=== PATIENT | male | born 1945 | race Caucasian/White ===

== ENCOUNTER 2020-09-17 12:17 | Outpatient (REF) | payer MEDICARE, MEDICAID, SELFPAY | END 2020-09-17 12:18 | disposition home or self-care (01) | LOC: HO.LAB 12:17 | PROVIDERS: Visit Provider Internal Medicine | DX: Z20.828 Contact with and (suspected) exposure to other viral communicable diseases (principal) | CPT/HCPCS: 87635 ==

== ENCOUNTER → 2020-10-29 09:25 | Outpatient (BNVA) | payer MEDICARE, MEDICAID, SELFPAY | PROVIDERS: PCP Family Medicine; Referring Provider Family Medicine; Visit Provider Internal Medicine Endocrinology, Diabetes & Metabolism | DX: Z13.89 Encounter for screening for other disorder (principal) | CPT/HCPCS: Q3014 ==

== ENCOUNTER 2020-11-25 14:01 | Outpatient (REF) | payer MEDICARE, MEDICAID, SELFPAY | END 2020-11-25 14:02 | disposition home or self-care (01) | LOC: HO.LAB 14:01 | PROVIDERS: PCP Family Medicine; Visit Provider Internal Medicine | DX: Z20.828 Contact with and (suspected) exposure to other viral communicable diseases (principal) | CPT/HCPCS: 36415; C9803; U0003 ==

== ENCOUNTER 2021-01-14 16:24 | Emergency (ER) | payer MEDICARE, OTHER, SELFPAY ==
--- NOTE | ~2021-01-14 | US_ITS ---
EXAMINATION: US VENOUS ULTRASOUND WITH DOPPLER LOWER EXTREMITY, LEFT CLINICAL INFORMATION: Left lower extremity pain and swelling COMPARISON: CT abdomen pelvis 05/01/2019 TECHNIQUE: Ultrasound of the deep veins is performed from the hip to the calf with compression sonography and color and pulse Doppler assessment. Spectral analysis with color-flow imaging is performed. FINDINGS: There is normal venous compression and respiratory variation and augmented flow. The visualized common femoral vein, superficial femoral vein, profunda femoral vein, popliteal vein, and the trifurcation region shows no evidence of deep venous thrombosis. There is no significant popliteal fossa cyst. Incidental note made of a 3.1 cm normal-appearing left inguinal lymph node. Prominent lymph nodes were present in the inguinal regions on the prior CT scan. If the patient's symptoms persist, followup ultrasound in 5 days 7 days might be of value to exclude proximal propagation from a non-visualized calf vein. US/US venous duplex LE IMPRESSION: No DVT demonstrated in the left lower extremity.
[2021-01-14 18:58] VITALS: BP 116/71; PULSE 105; RESP 18; TEMP 37.1; O2SAT 97; BMI 31.7
[2021-01-14 21:43] LABS: Glucose, Whole Blood 243 mg/dL (60-115)
[2021-01-14 22:00] VITALS: BP 116/71; PULSE 105; RESP 18; TEMP 37.1; O2SAT 97
--- NOTE | 2021-01-14 23:09 | ED.LOWEXIN ---
HPI - Extremity Injury (Lower) General Chief Complaint: Extremity Injury, Lower Stated Complaint: leg pain and swelling Time Seen by Provider: 01/14/21 23:09 Source: patient Mode of arrival: ambulatory Limitations: no limitations History of Present Illness HPI Narrative: Patient diabetic noticed swelling of left foot for last 5 days with slight erythema of the dorsum of the foot gradually swelling spreaded to the whole leg below the knee. Patient denies any fever no skin breakdown no injury denies any shortness of breath Related Data Home Medications Medication Instructions Recorded Confirmed atorvastatin 40 mg tablet 40 mg PO BEDTIME 10/29/20 10/29/20 cholecalciferol (vitamin D3) 50 50 mcg PO DAILY 10/29/20 10/29/20 mcg (2,000 unit) capsule exenatide microspheres 2 mg/0.85 mg SUBCUT 10/29/20 10/29/20 mL subcutaneous auto-injector glucose 4 gram chewable tablet 16 g PO 10/29/20 10/29/20 insulin glargine U-300 conc 300 15 unit SUBCUT BEDTIME ml 10/29/20 10/29/20 unit/mL (1.5 mL) subcutaneous pen lisinopril 20 mg tablet 20 mg PO DAILY 10/29/20 10/29/20 metolazone 2.5 mg tablet mg PO 10/29/20 10/29/20 metoprolol succinate 25 mg 25 mg PO DAILY 10/29/20 10/29/20 tablet,extended release 24 hr pen needle, diabetic 31 gauge x #1200 ea 10/29/20 10/29/20 5/16 potassium chloride 20 mEq 20 meq PO DAILY 10/29/20 10/29/20 tablet,extended release(part/cryst) Previous Rx's Medication Instructions Recorded TRUEplus Lancets 33 gauge #350 ea NS 10/29/20 blood sugar diagnostic #350 ea 10/29/20 Humalog KwikPen Insulin 100 See Rx Instructions SUBCUT TID 30 12/31/20 unit/mL subcutaneous Days #15 ml NS furosemide 40 mg tablet 80 mg PO .COMPLEX 30 Days #120 tab 01/08/21 cephalexin 500 mg PO QID 10 Days #40 cap 01/15/21 doxycycline hyclate 100 mg PO BID #20 cap 01/15/21 Allergies Allergy/AdvReac Type Severity Reaction Status Date / Time No Known Allergies Allergy Verified 01/14/21 18:58 [No Known Allergies*] Review of Systems Review of Systems: Constitutional : No Weight loss, No Fever, No Chills ENT/Mouth : No sore throat, No Rhinorrhea Eyes: No Eye Pain, No Swelling Cardiovascular : No Chest Pain, no palpitations Respiratory : No Cough, No Sputum, no shortness of breath Gastrointestinal : no Nausea, No Vomiting, No Diarrhea, No abdominal Pain, no black stools Genitourinary : No Dysuria, No Urinary Frequency Musculoskeletal : No joint pain, No Myalgias, No Joint Swelling Skin : No Skin Lesions, No rash Neuro : No Weakness, No Numbness, No Dizziness, No Headache Psych : No Anxiety/Panic, No Depression Heme/Lymph: No Bruising, No Lymphadenopathy Endocrine : No Polyuria, No Polydipsia All other systems reviewed and are negative [facility] Past Medical History Medical History CAD (coronary artery disease) CKD (chronic kidney disease) stage 3, GFR 30-59 ml/min Diabetes type 2, uncontrolled Diabetic polyneuropathy associated with type 2 diabetes mellitus Dyslipidemia Heart failure with preserved ejection fraction 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 Obesity (BMI 30-39.9) SRINIVASA (obstructive sleep apnea) Surgical History Hx of cardiac catheterization Hx of colonoscopy Family History Family History Father Heart disease Diabetes mellitus Mother Diabetes mellitus Social History Social History Alcohol intake: unknown Smoking Status: Unknown if ever smoked Use of substances other than those prescribed or required for medical reasons: Unknown Advance Directives: No Physical Exam Vital Signs: Vital Signs: Last Vital Signs Temp 98.7 F 01/14/21 22:00 Pulse 105 H 01/14/21 22:00 Resp 18 01/14/21 22:00 BP 116/71 01/14/21 22:00 Pulse Ox 97 01/14/21 22:00 Body Mass Index 31.7 Appearance: Alert. Oriented X3. No acute distress. Eyes: Pupils equal, round and reactive to light. ENT: Pharynx normal. Neck: Normal inspection. Neck supple. CVS: Normal heart rate and rhythm. Pulses normal. Respiratory: No respiratory distress. Breath sounds normal. Abdomen: Soft and nontender. Bowel sounds are present, no mass palpable, no CVA tenderness Skin: Skin warm and dry. Normal skin color. Normal skin turgor. Extremities: Normal right leg, left leg swelling from dorsum to below the knee with slight erythema at the dorsum of the foot no skin break no significant calf tenderness Neuro: Oriented X 3. No motor deficit. No sensory deficit. MDM - Extremity Injury (Lower) MDM Narrative Medical decision making narrative: Patient was slight erythema of the dorsum of left foot with leg edema Doppler is negative for DVT no open wound will treat him with doxycycline and Keflex. Patient white count slightly elevated. Patient advised to come back to ER if the redness gets worse or has high-grade fever Lab Data Attestation: I reviewed the patient's lab results. Result diagrams: 01/14/21 23:33 01/14/21 23:33 Labs: Lab Results 01/14/21 01/14/21 01/14/21 Range/Units 21:38 23:33 23:33 WBC 13.7 H (4.8-10.8) X10*3/uL RBC 4.53 L (4.60-5.80) X10*6/uL Hgb 12.9 L (14.0-18.0) g/dl Hct 41.5 L (42-52) % MCV 91.6 (80-98) fL MCH 28.5 (27.0-33.0) pg MCHC 31.1 (31.0-36.0) g/dl RDW 13.5 (11.0-16.0) % Plt Count 227 (160-400) X10*3/uL MPV 10.7 (9.4-12.4) fL Immature Gran % (Auto) 0.4 (0.0-0.4) % Neut % (Auto) 74.5 H (45-73) % Lymph % (Auto) 12.4 L (20-40) % [place] % (Auto) 11.4 H (2-11) % Eos % (Auto) 1.0 (0-4) % Baso % (Auto) 0.3 (0-2) % Lymph # (Auto) 1.7 (1.2-4.9) X10*3/uL [place] # (Auto) 1.6 H (0.1-1.2) X10*3/uL Eos # (Auto) 0.1 (0.0-0.4) X10*3/uL Baso # (Auto) 0.0 (0.0-0.2) X10*3/uL Abs Immat Gran (auto) 0.05 H (0.00-0.03) X10*3/uL Absolute Neuts (auto) 10.2 H (2.0-8.3) X10*3/uL Absolute Nucleated RBC 0.000 (0.0-0.012) X10*3/uL Nucleated RBC % (auto) 0.0 (0.0-0.2) /100WBC Smear Tech's Comments VERIFIED Sodium 139 (135-145) mmol/L Potassium 4.8 (3.3-5.1) mmol/L Chloride 96 (96-108) mmol/L Carbon Dioxide 30 H (22-29) mmol/L Anion Gap 18 (12-20) BUN 42 H (9-16) mg/dL Creatinine 1.71 H (0.5-1.4) mg/dL Estim Creat Clear Calc 37.0 Estimated GFR 39 POC Glucose 243 H (60-115) mg/dL Random Glucose 291 H (60-115) mg/dL Calcium 9.5 (8.4-10.2) mg/dL B-Natriuretic Peptide (<100) pg/mL 01/14/21 Range/Units 23:33 WBC (4.8-10.8) X10*3/uL RBC (4.60-5.80) X10*6/uL Hgb (14.0-18.0) g/dl Hct (42-52) % MCV (80-98) fL MCH (27.0-33.0) pg MCHC (31.0-36.0) g/dl RDW (11.0-16.0) % Plt Count (160-400) X10*3/uL MPV (9.4-12.4) fL Immature Gran % (Auto) (0.0-0.4) % Neut % (Auto) (45-73) % Lymph % (Auto) (20-40) % [place] % (Auto) (2-11) % Eos % (Auto) (0-4) % Baso % (Auto) (0-2) % Lymph # (Auto) (1.2-4.9) X10*3/uL [place] # (Auto) (0.1-1.2) X10*3/uL Eos # (Auto) (0.0-0.4) X10*3/uL Baso # (Auto) (0.0-0.2) X10*3/uL Abs Immat Gran (auto) (0.00-0.03) X10*3/uL Absolute Neuts (auto) (2.0-8.3) X10*3/uL Absolute Nucleated RBC (0.0-0.012) X10*3/uL Nucleated RBC % (auto) (0.0-0.2) /100WBC Smear Tech's Comments Sodium (135-145) mmol/L Potassium (3.3-5.1) mmol/L Chloride (96-108) mmol/L Carbon Dioxide (22-29) mmol/L Anion Gap (12-20) BUN (9-16) mg/dL Creatinine (0.5-1.4) mg/dL Estim Creat Clear Calc Estimated GFR POC Glucose (60-115) mg/dL Random Glucose (60-115) mg/dL Calcium (8.4-10.2) mg/dL B-Natriuretic Peptide 753 H (<100) pg/mL Discharge Plan Discharge Clinical Impression: Cellulitis of left leg Patient Disposition: Home, Self-Care Instructions: Cellulitis (ED) Additional Instructions: Keep the leg elevated take antibiotic as prescribed Follow-up with your PCP Prescriptions: New doxycycline hyclate 100 mg capsule 100 mg PO BID Qty: 20 RF: 0 cephalexin 500 mg capsule 500 mg PO QID 10 Days Qty: 40 RF: 0 No Action insulin lispro [Humalog KwikPen Insulin] 100 unit/mL insulin pen See Rx Instructions subcut TID 30 Days Qty: 15 RF: 6 furosemide 40 mg tablet 80 mg PO .COMPLEX 30 Days Qty: 120 RF: 1 cholecalciferol (vitamin D3) 50 mcg (2,000 unit) capsule 50 mcg PO DAILY RF: 0 metoprolol succinate 25 mg tablet extended release 24 hr 25 mg PO DAILY RF: 0 metolazone 2.5 mg tablet PO RF: 0 atorvastatin 40 mg tablet 40 mg PO BEDTIME RF: 0 Toudeyanira SoloStar U-300 Insulin 300 unit/mL (1.5 mL) insulin pen 15 unit subcut BEDTIME RF: 0 lisinopril 20 mg tablet 20 mg PO DAILY RF: 0 (DME) pen needle, diabetic 31 gauge x 5/16 needle See Rx Instructions ea .ROUTE DAILY Qty: 1200 RF: 0 glucose 4 gram tablet,chewable 16 g PO RF: 0 potassium chloride 20 mEq tablet,ER particles/crystals 20 meq PO DAILY RF: 0 Bydureon BCise 2 mg/0.85 mL auto-injector subcut RF: 0 (DME) FreeStyle Lite Strips Strip See Rx Instructions .ROUTE .MEDSUPPLY Qty: 350 RF: 2 (DME) lancets [TRUEplus Lancets] 33 gauge misc See Rx Instructions ea Not Applicable TID Qty: 350 RF: 2 Interventions: ED Discharge Assessment Last Done: 01/15/21 01:34 Discharge Date/Time: 01/15/21 02:05 Print Language: Turkish
[2021-01-14 23:40] LABS: Basophils Percent Auto 0.3 % (0-2); Eosinophils Absolute Auto 0.1 X10*3/uL (0.0-0.4); Hematocrit 41.5 % (42-52); Hemoglobin 12.9 g/dl (14.0-18.0); Imm Gran Abs Auto 0.05 X10*3/uL (0.00-0.03); Imm Gran Pct Auto 0.4 % (0.0-0.4); Lymphocytes Absolute Auto 1.7 X10*3/uL (1.2-4.9); Lymphocytes Percent Auto 12.4 % (20-40); MANUAL DIFF FLAG SCAN; Mean Corpuscular HGB Conc 31.1 g/dl (31.0-36.0); Mean Corpuscular Hemoglobin 28.5 pg (27.0-33.0); Mean Corpuscular Volume 91.6 fL (80-98); Mean Platelet Volume 10.7 fL (9.4-12.4); Monocytes Absolute Auto 1.6 X10*3/uL (0.1-1.2); Monocytes Percent Auto 11.4 % (2-11); Neutrophils Absolute Auto 10.2 X10*3/uL (2.0-8.3); Neutrophils Percent Auto 74.5 % (45-73); Platelet Count 227 X10*3/uL (160-400); Red Blood Count 4.53 X10*6/uL (4.60-5.80); Red Cell Distribution Width 13.5 % (11.0-16.0); SCAN SMEAR FLAG 1; White Blood Count 13.7 X10*3/uL (4.8-10.8)
[2021-01-14 23:48] LABS: SLIDE REVIEW VERIFIED
[2021-01-15 00:04] LABS: Carbon Dioxide 30 mmol/L (22-29); Chloride 96 mmol/L (96-108); Potassium 4.8 mmol/L (3.3-5.1); Sodium 139 mmol/L (135-145)
[2021-01-15 00:05] LABS: Anion Gap 18 (12-20); Blood Urea Nitrogen 42 mg/dL (9-16); Calcium 9.5 mg/dL (8.4-10.2); Estimated Glomerular Filt Rate 39; Glucose Random 291 mg/dL (60-115)
[2021-01-15 00:11] LABS: B Type Natriuretic Peptide 753 pg/mL (<100)
[2021-01-15] MEDS: cephALEXin 500 MG CAPSULE PO (01:34)
== END 2021-01-15 02:05 | disposition home or self-care (01) ==
PROVIDERS: Emergency Provider Internal Medicine; PCP Family Medicine
DX: L03.116 Cellulitis of left lower limb (principal); M79.605 Pain in left leg; E11.22 Type 2 diabetes mellitus with diabetic chronic kidney disease; I13.0 Hypertensive heart and chronic kidney disease with heart failure and stage 1 through stage 4 chronic kidney disease, or unspecified chronic kidney disease; N18.30 Chronic kidney disease, stage 3 unspecified; I50.9 Heart failure, unspecified; Z79.4 Long term (current) use of insulin; Z79.899 Other long term (current) drug therapy
CPT/HCPCS: 36415; 80048; 82947; 83880; 85025; 93971; 99284

== ENCOUNTER → 2021-02-04 11:26 | Outpatient (BNVA) | payer MEDICARE, OTHER, SELFPAY | PROVIDERS: PCP Family Medicine; Visit Provider Internal Medicine Endocrinology, Diabetes & Metabolism | DX: E11.65 Type 2 diabetes mellitus with hyperglycemia (principal); E11.42 Type 2 diabetes mellitus with diabetic polyneuropathy; Z79.4 Long term (current) use of insulin; E78.5 Hyperlipidemia, unspecified; I10 Essential (primary) hypertension; E66.9 Obesity, unspecified | CPT/HCPCS: 82947; 99212 ==

== ENCOUNTER → 2021-02-17 13:49 | Outpatient (BNVA) | payer MEDICARE, MEDICAID, SELFPAY | PROVIDERS: PCP Family Medicine; Visit Provider Internal Medicine | DX: I13.0 Hypertensive heart and chronic kidney disease with heart failure and stage 1 through stage 4 chronic kidney disease, or unspecified chronic kidney disease (principal); N18.32 Chronic kidney disease, stage 3b; I50.32 Chronic diastolic (congestive) heart failure; G47.33 Obstructive sleep apnea (adult) (pediatric); R00.0 Tachycardia, unspecified | CPT/HCPCS: 93005; 99212 ==

== ENCOUNTER → 2021-03-31 08:06 | Outpatient (REF) | payer MEDICARE, OTHER, SELFPAY ==
--- NOTE | 2021-03-31 08:10 | CA_ITS ---
Transthoracic Echocardiogram Patient (Last, First, Middle): Jonathan Neal A Gender: Male Date of : 1945 Age: 76 Procedure Date: 03/31/2021 Procedure Type: Transthoracic Echocardiogram Location: OP Height: 160.02 cm Weight: 81.65 kg BSA: 1.85 m2 Heart Rate: bpm BP: 102 / 60 mmHg Sulfide Head Operator: Reagan MD: Jas Dudley MD Symptoms: I50.32 - Chronic diastolic (congestive) heart failure Study Quality: Good ECG Rhythm: Sinus Conclusions: - Visually estimated LVEF about 40%. - There is moderate global hypokinesis. - There is mildly decreased right ventricular systolic function. - There is mild mitral valve regurgitation. - There is mild tricuspid valve regurgitation. - Mild pulmonary hypertension is present. Findings Procedure Information The patient receives contrast. Left Ventricle Normal left ventricular cavity size. The left ventricular systolic function is moderately decreased. There is moderate global hypokinesis. Moderate to severe concentric left ventricular hypertrophy. Possible grade 2 diastolic dysfunction. Visually estimated LVEF about 40%. Right Ventricle Normal right ventricular cavity size. There is mildly decreased right ventricular systolic function. Atria The left atrium is mildly dilated. The right atrium is normal in size. Aortic Valve There is a normal trileaflet aortic valve. There is no aortic valve stenosis. There is no aortic valve regurgitation. Mitral Valve There is mild anterior mitral leaflet thickening. There is mild mitral valve regurgitation. There is no mitral valve stenosis. Pulmonic Valve The pulmonic valve was not well visualized. There is trace to mild pulmonic valve regurgitation. Tricuspid Valve Normal tricuspid valve structure. There is mild tricuspid valve regurgitation. The right ventricular systolic pressure is 42 mmHg. Mild pulmonary hypertension is present. Great Vessels The aortic annulus, sinuses of valsalva, and asc aorta are normal in size. Small plaque is seen in the sino tubular ridge. Venous The inferior vena cava is normal in size and collapses greater than 50% with inspiration. Pericardium/Pleural There is a trivial pericardial effusion. Prior Study Comparison No significant change compared to prior study dated: 06/25/2020. Measurements 2D Linear Measurements RVIDd: 3.20 RVIDd Index: 1.73 IVSd: 1.34 0.6-0.9/0.6-1.0 cm LVIDd: 4.61 3.9-5.3/4.2-5.9 cm LVIDd Index: 2.49 2.4-3.2/2.2-3.1 cm/m2 LVIDs: 3.88 2.0-3.6 cm LVPWd: 1.52 0.7-1.1 cm Ao Root: 2.50 2.1-3.5 cm LA Diam: 4.30 2.7-3.8/3.0-4.0 cm LAIDs Index: 2.32 1.5-2.3 cm/m2 LV Mass: 331.61 67-162/88-224 g LV Mass Index: 179.25 43-95/49-115 g/m2 LVOT Diam: 2.00 3.0+(-)1.3 cm 2D Systolic Function EF 4C: 43.70 >55% EF 2C: 51.40 >55% Mitral Valve E'Lateral: 4.25 MR Vol - PW Dopp: 21.47 MR VTI: 1.13 MR ERO: 19.00 MR Alias Marcell: 0.37 MR RAD: 0.60 Aortic Valve AoV Pk Marcell: 1.41 AoV Mn Marcell: 1.06 AoV VTI: 0.23 AoV Pk Grad: 8.00 Aov Mn Grad: 5.00 OWEN Cont.VTI: 1.55 LVOT LVOT Pk Marcell: 0.77 LVOT Mn Marcell: 0.47 LVOT VTI: 0.11 LVOT Pk Grad: 2.00 LVOT Mn Grad: 1.00 LVOT Diam: 2.00 LVOT Area: 3.14 Diastolic Function E' Laterial: 4.25 Tricuspid Valve TR Pk Marcell: 3.12 TR Pk Grad: 39.00 RA Press: 3.00 RVSP: 42.00 Great Vessels Aorta Ao Root-2D: 2.50 2.0-3.7 cm Ao Asc: 2.70 2.1-3.4 cm Updated in Other Vendor System with Status of Final Jas Dudley MD electronically signed on 03/31/2021 4:32:58 PM with status of Final
--- NOTE | 2021-03-31 08:25 | ECG_ITS ---
Hook-up date: 2021-03-31 10:00:00 Duration: 27:13:00 Test Indications: PAF Medications: 504992 QRS complexes 5 Ventricular ectopics which represent <1 % of total QRS comp. 20 Supraventricular ectopics which represent <1 % of total QRS comp. * Paced QRS complexs which represent % of total QRS comp. VENTRICULAR ECTOPY 5 Isolated 0 Bigeminal Cycles 0 Couplets 0 Runs 0 Beats in Runs * Beats LONGEST at * BPM at :: -- * Beats FASTEST at * BPM at :: -- SUPRAVENTRICULAR ECTOPY 20 Isolated 0 Couplets 0 Runs 0 Beats in Runs * Beats LONGEST at * BPM at :: -- * Beats FASTEST at * BPM at :: -- HEART RATES 46 MIN at 01:29:36 2021-04-01 81 AVG 132 MAX at 18:29:23 2021-03-31 LONGEST RR 1.7840 secs at 23:53:34 2021-03-31 S-T LEVELS Channel 1 - 128 mm at 10:00:00 2021-03-31 - 128 mm at 10:00:00 2021-03-31 Channel 2 - 128 mm at 10:00:00 2021-03-31 - 128 mm at 10:00:00 2021-03-31 Channel 3 - 128 mm at 02:91:91 -- - 128 mm at 02:91:91 Basic rhythm Normal sinus rhythm No long pause or profound bradycardia No sustained Atrial fibrillation Rare Premature atrial complexes Patient did not report any symptoms in the diary Referred By: Jas Dudley Overread By: ANNETTE GALLARDO MD
== END ==
LOC: HO.CARD 08:06
PROVIDERS: Visit Provider Internal Medicine
DX: I50.32 Chronic diastolic (congestive) heart failure (principal); I48.0 Paroxysmal atrial fibrillation; R00.0 Tachycardia, unspecified; J45.909 Unspecified asthma, uncomplicated
CPT/HCPCS: 93225; 93226; 93306; Q9957

== ENCOUNTER 2021-04-11 08:40 | Outpatient (REF) | payer MEDICARE, OTHER, SELFPAY ==
[2021-04-11 09:30] LABS: Hematocrit 41.4 % (42-52); Hemoglobin 12.9 g/dl (14.0-18.0); Mean Corpuscular HGB Conc 31.2 g/dl (31.0-36.0); Mean Platelet Volume 11.4 fL (9.4-12.4); Platelet Count 225 X10*3/uL (160-400); White Blood Count 14.4 X10*3/uL (4.8-10.8)
[2021-04-11 09:47] LABS: Anion Gap 15 (12-20); Blood Urea Nitrogen 77 mg/dL (9-16); Calcium 9.8 mg/dL (8.4-10.2); Carbon Dioxide 32 mmol/L (22-29); Chloride 95 mmol/L (96-108); Estimated Glomerular Filt Rate 26; Iron 25 mcg/dL (45-160); Percent Iron Saturation 7 % (15-50); Sodium 138 mmol/L (135-145); Total Iron Binding Capacity 355 mcg/dL (228-428); Unsaturated Iron Binding 330 ug/dL; Uric Acid 14.7 mg/dL (3.4-7.0)
[2021-04-11 10:08] LABS: Vitamin D 25-OH Total 70.2 ng/mL (>30)
[2021-04-11 11:04] LABS: Estimated Average Glucose 206 mg/dL; Hemoglobin A1c % 8.8 %
[2021-04-11 11:13] LABS: Creatinine Urine 90.04 mg/dL; Total Protein Urine Random < 7 mg/dL (<12)
[2021-04-15 10:27] LABS: Calcium (PTHI) 9.7 mg/dL (8.6-10.3); PTHI 122 pg/mL (14-64)
== END 2021-04-11 08:41 | disposition home or self-care (01) ==
LOC: HO.LAB 08:40
PROVIDERS: PCP Family Medicine; Visit Provider Internal Medicine Nephrology
DX: Z13.89 Encounter for screening for other disorder (principal)
CPT/HCPCS: 36415; 80051; 82306; 82310; 82565; 83036; 83540; 83970; 84156; 84520; 84550; 85027

== ENCOUNTER 2021-04-11 09:22 | Inpatient (IN) | payer MEDICARE, OTHER, SELFPAY ==
--- NOTE | ~2021-04-11 | XR_ITS ---
EXAMINATION: XR HAND, RIGHT CLINICAL INFORMATION: Swelling and redness. Evaluate for osteomyelitis. COMPARISON: Right wrist x-ray from earlier the same day TECHNIQUE: PA, lateral, and oblique views of the right hand. FINDINGS: Bone alignment is normal. No fracture or dislocation is seen. There is mild arthritis at the PIP joint of the third finger and first [facility] joint. Joint spaces are otherwise normal. There is no evidence of osteomyelitis. There is diffuse soft tissue swelling. XR/XR hand RT min 3V IMPRESSION: No evidence of osteomyelitis. Arthritis at the PIP joint of the third finger and first [facility] joint. Soft tissue swelling.
--- NOTE | ~2021-04-11 | XR_ITS ---
EXAMINATION: XR WRIST, RIGHT CLINICAL INFORMATION: Right wrist swelling, redness and pain COMPARISON: None TECHNIQUE: PA, lateral, and oblique views of the right wrist. FINDINGS: Bone alignment is normal. No fracture or dislocation is seen. There is mild arthritis at the first [facility] joint. The joint spaces are otherwise normal. There is diffuse soft tissue swelling about the wrist. XR/XR wrist RT 2V IMPRESSION: Soft tissue swelling. Mild arthritis at the first [facility] joint.
[2021-04-11 10:04] VITALS: BP 125/64; PULSE 102; RESP 16; TEMP 37.2; O2SAT 99; BMI 31.8
--- NOTE | 2021-04-11 10:35 | ED_ITS ---
HPI - Extremity Problem General Chief complaint: Extremity Injury, Upper Stated complaint: swollen hand Time Seen by Provider: 04/11/21 11:33 Source: patient Mode of arrival: ambulatory Limitations: no limitations History of Present Illness HPI Narrative: Patient presents to ED for right hand swelling. Patient woke up with right wrist and hand swollen with pain. Patient had decreased movement of fingers due to pain. Patient denies any recent trauma to the hand being being by enema. Patient woke up with Hand/wrist swelling redness this morning Related Data Home Medications Medication Instructions Recorded Confirmed atorvastatin 40 mg tablet 40 mg PO BEDTIME 10/29/20 04/11/21 cholecalciferol (vitamin D3) 50 50 mcg PO DAILY@1200 10/29/20 04/11/21 mcg (2,000 unit) capsule lisinopril 20 mg tablet 20 mg PO DAILY@1200 10/29/20 04/11/21 metoprolol succinate 25 mg 25 mg PO DAILY@1200 10/29/20 04/11/21 tablet,extended release 24 hr albuterol sulfate 90 mcg/actuation 2 puff INHALATION Q6H PRN 02/04/21 04/11/21 aerosol inhaler aspirin 81 mg tablet,delayed 81 mg PO DAILY 02/17/21 04/11/21 release budesonide [Pulmicort Flexhaler] 2 puff PO BID 04/11/21 04/11/21 insulin glargine U-300 conc 17 unit SUBCUT BEDTIME 04/11/21 04/11/21 [Toujeo SoloStar U-300 Insulin] potassium chloride 20 meq PO DAILY@1200 04/11/21 04/11/21 Previous Rx's Medication Instructions Recorded Humalog KwikPen Insulin 100 See Rx Instructions SUBCUT TID 30 02/04/21 unit/mL subcutaneous Days #30 ml NS exenatide microspheres 2 mg/0.85 2 mg SUBCUT QWEEK 30 Days #4.25 ml 02/04/21 mL subcutaneous auto-injector furosemide 40 mg tablet 80 mg PO BID #120 tab 03/14/21 Allergies Allergy/AdvReac Type Severity Reaction Status Date / Time No Known Allergies Allergy Verified 01/14/21 18:58 [No Known Allergies*] Review of Systems Review of Systems: Yes all other systems are reviewed and are negative Constitutional: Constitutional: Reports as per HPI and Reports no additional constitutional complaints Eyes: Eyes: Reports as per HPI and Reports no additional eye complaints ENT: Reports system reviewed and no additional complaints, except as documented and Reports as per HPI Cardiovascular: Cardiovascular: Reports as per HPI and Reports no additional cardiovascular complaints Respiratory: Respiratory: Reports as per HPI and Reports no additional respiratory complaints Gastrointestinal: Gastrointestinal: Reports as per HPI and Reports no additional gastrointestinal complaints Genitourinary: Genitourinary: Reports no additional male genitourinary complaints and Reports as per HPI Musculoskeletal: Musculoskeletal: Reports no additional musculoskeletal complaints, Reports as per HPI, Reports arthralgias (Right hand) and Reports joint swelling (Right hand/wrist) Neurologic: Reports system reviewed and no additional complaints, except as documented and Reports as per HPI Psychiatric: Psychiatric: Reports no additional psychiatric complaints and Reports as per HPI [facility] Past Medical History Medical History (Updated 04/11/21 @ 16:32 by GOLDIE Beverly) CAD (coronary artery disease) CKD (chronic kidney disease) stage 3, GFR 30-59 ml/min Diabetes type 2, uncontrolled Diabetic polyneuropathy associated with type 2 diabetes mellitus Dyslipidemia Essential hypertension Heart failure with preserved ejection fraction 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 Obesity (BMI 30-39.9) SRINIVASA (obstructive sleep apnea) Surgical History Hx of cardiac catheterization Hx of colonoscopy Family History Family History Father Heart disease Diabetes mellitus Mother Diabetes mellitus Social History Social History Alcohol intake: never Smoking Status: Never smoker Use of substances other than those prescribed or required for medical reasons: No Advance Directives: Yes Advance Directives Information Provided: No Advance Directives on File: No Physical Exam Vital Signs: Vital Signs: Last Vital Signs Temp 99 F 04/11/21 10:04 Pulse 96 04/11/21 12:23 Resp 15 04/11/21 12:23 BP 127/72 04/11/21 12:23 Pulse Ox 99 04/11/21 10:04 Body Mass Index 31.8 Const: General: cooperative, healthy appearing, comfortable, no acute distress, well developed, alert, awake and Physically active Orientation/consciousness: patient oriented x3 HENMT: Head: Yes normal to inspection, Yes No palpable skull fracture present, Yes normocephalic and Yes atraumatic Eyes: General: appearance normal, both eyes and all related structures Neck: Neck: Yes normal visual inspection and Yes full ROM Chest: Chest palpation & inspection: normal inspection of the chest and normal palpation of entire chest wall Resp: Effort & Inspection: normal respiratory effort and able to speak in complete sentences Auscultation: clear to auscultation bilaterally Cardio: Jugular venous distension: no JVD Heart sounds: S1 normal heart sound present and S2 normal heart sound present GI: Inspection: Yes normal to inspection Palpation (GI): Soft to palpation, not firm, nontender, no guarding and not rigid : General: No CVA tenderness and Yes no CVA tenderness Back/Spine/Pelvis: Back: no CVA tenderness, No CVA tenderness and No back tenderness Skin: General skin exam: no rashes or lesions noted and elasticity normal Neuro: General: patient oriented x3, gait normal and CN's II-XI intact bilaterally Cranial nerves: Yes CN's II-XII intact bilaterally Extrem: Other: Right upper extremity: Positive for erythema swelling of dorsal aspect of hand/wrist and redness. Positive for swelling of 2nd and 3rd finger. Patient able to flex and extend fingers but with limitation due to pain. Radial pulses neuro exam is intact right upper extremity. Rest of right upper extremity negative for any swelling, tenderness. General: Yes normal to inspection and Yes full ROM Psych: Appearance: grossly normal, well kempt and not disheveled Course Course Course Narrative: Will do labs, lactate, fluids, and x-ray. Reevaluation(s) Reevaluation #1: X-ray negative for osteomyelitis. History physical exam indicate most likely cellulitis. ERCP, ESR, elevated white blood cell count. Hospitalist contacted for admission. Reevaluation #2: Spoke with Dr. lorin Whitt and recommends hand surgeon/ortho evaluation. Patient was given antibiotics. Hand surgeon Dr. Flores was contacted. Reevaluation #3: GOLDIE Monterroso of Orthopedics evaluated patient does not believe patient has tenosynovitis. She will discuss case with Dr. Baker. MDM - Extremity (Nontraumatic) MDM Narrative Medical decision making narrative: Cellulitis Lab Data Result diagrams: 04/11/21 11:06 04/11/21 11:05 Labs: Lab Results 04/11/21 04/11/21 04/11/21 Range/Units 11:05 11:05 11:05 WBC (4.8-10.8) X10*3/uL RBC (4.60-5.80) X10*6/uL Hgb (14.0-18.0) g/dl Hct (42-52) % MCV (80-98) fL MCH (27.0-33.0) pg MCHC (31.0-36.0) g/dl RDW (11.0-16.0) % Plt Count (160-400) X10*3/uL MPV (9.4-12.4) fL Immature Gran % (Auto) (0.0-0.4) % Neut % (Auto) (45-73) % Lymph % (Auto) (20-40) % [place] % (Auto) (2-11) % Eos % (Auto) (0-4) % Baso % (Auto) (0-2) % Lymph # (Auto) (1.2-4.9) X10*3/uL [place] # (Auto) (0.1-1.2) X10*3/uL Eos # (Auto) (0.0-0.4) X10*3/uL Baso # (Auto) (0.0-0.2) X10*3/uL Abs Immat Gran (auto) (0.00-0.03) X10*3/uL Absolute Neuts (auto) (2.0-8.3) X10*3/uL Absolute Nucleated RBC (0.0-0.012) X10*3/uL Nucleated RBC % (auto) (0.0-0.2) /100WBC ESR (0-15) MM/HR PT 13.9 H (10.8-13.0) SEC INR 1.2 H (0.9-1.1) APTT 32.5 (24.1-38.0) SEC Sodium 139 (135-145) mmol/L Potassium 4.0 (3.3-5.1) mmol/L Chloride 96 (96-108) mmol/L Carbon Dioxide 30 H (22-29) mmol/L Anion Gap 17 (12-20) BUN 80 H* (9-16) mg/dL Creatinine 2.33 H (0.5-1.4) mg/dL Estim Creat Clear Calc 26.2 Estimated GFR 28 Random Glucose 246 H (60-115) mg/dL Lactic Acid 1.3 (0.5-2.0) mmol/L Calcium 9.8 (8.4-10.2) mg/dL Total Bilirubin 1.8 H (0.0-1.0) mg/dL AST 18 (5-37) U/L ALT 24 (0-40) U/L Alkaline Phosphatase 101 (39-117) U/L C-Reactive Protein 5.94 H (< or = 0.50) mg/dL Total Protein 7.5 (6.5-8.0) g/dL Albumin 4.2 (3.5-5.0) g/dL 04/11/21 04/11/21 Range/Units 11:06 11:06 WBC 14.2 H (4.8-10.8) X10*3/uL RBC 4.59 L (4.60-5.80) X10*6/uL Hgb 12.9 L (14.0-18.0) g/dl Hct 41.3 L (42-52) % MCV 90.0 (80-98) fL MCH 28.1 (27.0-33.0) pg MCHC 31.2 (31.0-36.0) g/dl RDW 14.0 (11.0-16.0) % Plt Count 223 (160-400) X10*3/uL MPV 11.2 (9.4-12.4) fL Immature Gran % (Auto) 0.4 (0.0-0.4) % Neut % (Auto) 81.9 H (45-73) % Lymph % (Auto) 6.9 L (20-40) % [place] % (Auto) 10.1 (2-11) % Eos % (Auto) 0.4 (0-4) % Baso % (Auto) 0.3 (0-2) % Lymph # (Auto) 1.0 L (1.2-4.9) X10*3/uL [place] # (Auto) 1.4 H (0.1-1.2) X10*3/uL Eos # (Auto) 0.1 (0.0-0.4) X10*3/uL Baso # (Auto) 0.0 (0.0-0.2) X10*3/uL Abs Immat Gran (auto) 0.06 H (0.00-0.03) X10*3/uL Absolute Neuts (auto) 11.6 H (2.0-8.3) X10*3/uL Absolute Nucleated RBC 0.000 (0.0-0.012) X10*3/uL Nucleated RBC % (auto) 0.0 (0.0-0.2) /100WBC ESR 44 H (0-15) MM/HR PT (10.8-13.0) SEC INR (0.9-1.1) APTT (24.1-38.0) SEC Sodium (135-145) mmol/L Potassium (3.3-5.1) mmol/L Chloride (96-108) mmol/L Carbon Dioxide (22-29) mmol/L Anion Gap (12-20) BUN (9-16) mg/dL Creatinine (0.5-1.4) mg/dL Estim Creat Clear Calc Estimated GFR Random Glucose (60-115) mg/dL Lactic Acid (0.5-2.0) mmol/L Calcium (8.4-10.2) mg/dL Total Bilirubin (0.0-1.0) mg/dL AST (5-37) U/L ALT (0-40) U/L Alkaline Phosphatase (39-117) U/L C-Reactive Protein (< or = 0.50) mg/dL Total Protein (6.5-8.0) g/dL Albumin (3.5-5.0) g/dL Discharge Plan Discharge Clinical Impression: Cellulitis Patient Disposition: Admitted As Inpatient
[2021-04-11] MEDS: 0.9 % Sodium Chloride 1,000 ML 999 ML IV (11:06)
[2021-04-11 11:12] LABS: MANUAL DIFF FLAG NO
[2021-04-11 11:14] LABS: Basophils Percent Auto 0.3 % (0-2); Eosinophils Absolute Auto 0.1 X10*3/uL (0.0-0.4); Eosinophils Percent Auto 0.4 % (0-4); Hematocrit 41.3 % (42-52); Hemoglobin 12.9 g/dl (14.0-18.0); Imm Gran Abs Auto 0.06 X10*3/uL (0.00-0.03); Imm Gran Pct Auto 0.4 % (0.0-0.4); Lymphocytes Percent Auto 6.9 % (20-40); Mean Corpuscular HGB Conc 31.2 g/dl (31.0-36.0); Mean Corpuscular Hemoglobin 28.1 pg (27.0-33.0); Mean Platelet Volume 11.2 fL (9.4-12.4); Monocytes Absolute Auto 1.4 X10*3/uL (0.1-1.2); Monocytes Percent Auto 10.1 % (2-11); Neutrophils Absolute Auto 11.6 X10*3/uL (2.0-8.3); Neutrophils Percent Auto 81.9 % (45-73); Platelet Count 223 X10*3/uL (160-400); Red Blood Count 4.59 X10*6/uL (4.60-5.80); White Blood Count 14.2 X10*3/uL (4.8-10.8)
[2021-04-11 11:20] LABS: INTERNATIONAL NORM RATIO 1.2 (0.9-1.1); Prothrombin Time 13.9 SEC (10.8-13.0)
[2021-04-11 11:22] LABS: Partial Thromboplastin Time 32.5 SEC (24.1-38.0)
[2021-04-11 11:35] LABS: Lactic Acid 1.3 mmol/L (0.5-2.0)
[2021-04-11 11:46] LABS: Alanine Aminotransferase 24 U/L (0-40); Albumin Level 4.2 g/dL (3.5-5.0); Alkaline Phosphatase 101 U/L (39-117); Anion Gap 17 (12-20); Aspartate Amino Transferase 18 U/L (5-37); Bilirubin Total 1.8 mg/dL (0.0-1.0); Blood Urea Nitrogen 80 mg/dL (9-16); C Reactive Protein 5.94 mg/dL (< or = 0.50); Calcium 9.8 mg/dL (8.4-10.2); Carbon Dioxide 30 mmol/L (22-29); Chloride 96 mmol/L (96-108); Creatinine Clr Calc Pharmacy 26.2; Estimated Glomerular Filt Rate 28; Glucose Random 246 mg/dL (60-115); Sodium 139 mmol/L (135-145); Total Protein 7.5 g/dL (6.5-8.0)
[2021-04-11 11:54] LABS: Erythrocyte Sedimentation Rate 44 MM/HR (0-15)
[2021-04-11] MEDS: Piperacillin Sodium/Tazobactam 3.375 GM in 0.9 % Sodium Chloride 50 ML IV (12:20)
[2021-04-11 12:23] VITALS: BP 127/72; PULSE 96; RESP 15
[2021-04-11] MEDS: vancomycin HCL 1,000 MG in 0.9 % Sodium Chloride 250 ML 270 MG IV (13:20)
--- NOTE | 2021-04-11 14:56 | PM.CNOR ---
History of Present Illness HPI Consult date: 04/11/21 Consult reason: other (right hand pain ) Chief complaint: swollen hand Narrative: Mr. Enrique Menjivar is a 76-year-old [id number] gentleman who presents to the emergency department with a 2 day history of right hand increased pain, swelling and erythema. He states that he is able to move all fingers and wrists but is limited due to pain. While in the ED he has been placed on antibiotics and the patient states that his pain and erythema has steadily decreased, allowing him for more range of motion. He states that a few months prior he developed something similar in his lower extremity and was found to have cellulitis. 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 Obesity (BMI 30-39.9) SRINIVASA (obstructive sleep apnea) Family History Family History Father Heart disease Diabetes mellitus Mother Diabetes mellitus Surgical History Surgical History Hx of cardiac catheterization Hx of colonoscopy Social History Social History Alcohol intake: never Smoking Status: Never smoker Use of substances other than those prescribed or required for medical reasons: No Advance Directives: Yes Advance Directives Information Provided: No Advance Directives on File: No Meds Allergies Allergy/AdvReac Type Severity Reaction Status Date / Time No Known Allergies Allergy Verified 01/14/21 18:58 [No Known Allergies*] Active Medications: Current Medications Generic Name Dose Route Start Last Admin Trade Name Freq PRN Reason Stop Dose Admin Pharmacy Consult 1 each 04/11/21 13:44 Consult Rx Perform Med Rec MISCELLANE ONCE PRN Consult order Home Medications Medication Instructions Recorded Confirmed Last Taken Type atorvastatin 40 mg tablet 40 mg PO BEDTIME 10/29/20 04/11/21 04/10/21 History cholecalciferol (vitamin D3) 50 50 mcg PO DAILY@1200 10/29/20 04/11/21 04/10/21 History mcg (2,000 unit) capsule lisinopril 20 mg tablet 20 mg PO DAILY@1200 10/29/20 04/11/21 04/10/21 History metoprolol succinate 25 mg 25 mg PO DAILY@1200 10/29/20 04/11/21 04/10/21 History tablet,extended release 24 hr albuterol sulfate 90 mcg/actuation 2 puff INHALATION Q6H PRN 02/04/21 04/11/21 Unknown History aerosol inhaler aspirin 81 mg tablet,delayed 81 mg PO DAILY 02/17/21 04/11/21 Unknown History release budesonide [Pulmicort Flexhaler] 2 puff PO BID 04/11/21 04/11/21 Unknown History insulin glargine U-300 conc 17 unit SUBCUT BEDTIME 04/11/21 04/11/21 Unknown History [Toujeo SoloStar U-300 Insulin] potassium chloride 20 meq PO DAILY@1200 04/11/21 04/11/21 04/10/21 History Physical Exam Vital Signs: Vital Signs: Last Vital Signs Temp 99 F 04/11/21 10:04 Pulse 96 04/11/21 12:23 Resp 15 04/11/21 12:23 BP 127/72 04/11/21 12:23 Pulse Ox 99 04/11/21 10:04 Body Mass Index 31.8 Const: General: cooperative and no acute distress Orientation/consciousness: patient oriented x3 Resp: Effort & Inspection: normal respiratory effort and able to speak in complete sentences Cardio: Peripheral pulses: Peripheral pulses 2+ throughout Skin: General skin exam: no rashes or lesions noted Neuro: General: patient oriented x3 Extrem: Other: Right hand moderate erythema to the dorsal aspect of the hand. The patient is able to flex all digits to the palm with moderate pain. He is also to demonstrate extension of all digits but again is limited due to pain. Patient does not elicit pain out of proportion on exam with palpation of the flexor or extensor tendons nor with passive or active flexion and extension. Capillary refill is brisk. Radial pulse intact. Sensation intact. Results Labs Result Diagrams: 04/11/21 11:06 04/11/21 11:05 Labs: Abnormal lab results 04/11/21 04/11/21 04/11/21 Range/Units 11:05 11:05 11:06 WBC 14.2 H (4.8-10.8) X10*3/uL RBC 4.59 L (4.60-5.80) X10*6/uL Hgb 12.9 L (14.0-18.0) g/dl Hct 41.3 L (42-52) % Neut % (Auto) 81.9 H (45-73) % Lymph % (Auto) 6.9 L (20-40) % Lymph # (Auto) 1.0 L (1.2-4.9) X10*3/uL [place] # (Auto) 1.4 H (0.1-1.2) X10*3/uL Abs Immat Gran (auto) 0.06 H (0.00-0.03) X10*3/uL Absolute Neuts (auto) 11.6 H (2.0-8.3) X10*3/uL ESR (0-15) MM/HR PT 13.9 H (10.8-13.0) SEC INR 1.2 H (0.9-1.1) Carbon Dioxide 30 H (22-29) mmol/L BUN 80 H* (9-16) mg/dL Creatinine 2.33 H (0.5-1.4) mg/dL Random Glucose 246 H (60-115) mg/dL Total Bilirubin 1.8 H (0.0-1.0) mg/dL C-Reactive Protein 5.94 H (< or = 0.50) mg/dL 04/11/21 Range/Units 11:06 WBC (4.8-10.8) X10*3/uL RBC (4.60-5.80) X10*6/uL Hgb (14.0-18.0) g/dl Hct (42-52) % Neut % (Auto) (45-73) % Lymph % (Auto) (20-40) % Lymph # (Auto) (1.2-4.9) X10*3/uL [place] # (Auto) (0.1-1.2) X10*3/uL Abs Immat Gran (auto) (0.00-0.03) X10*3/uL Absolute Neuts (auto) (2.0-8.3) X10*3/uL ESR 44 H (0-15) MM/HR PT (10.8-13.0) SEC INR (0.9-1.1) Carbon Dioxide (22-29) mmol/L BUN (9-16) mg/dL Creatinine (0.5-1.4) mg/dL Random Glucose (60-115) mg/dL Total Bilirubin (0.0-1.0) mg/dL C-Reactive Protein (< or = 0.50) mg/dL H & H 04/11/21 Range/Units 11:06 Hgb 12.9 L (14.0-18.0) g/dl Hct 41.3 L (42-52) % Coagulation 04/11/21 Range/Units 11:05 INR 1.2 H (0.9-1.1) All other labs normal. Assessment and Plan (1) Cellulitis of right hand: Status: Acute Right hand cellulitis Patient should continue to work on finger and wrist range of motion. Continue antibiotics per the medicine team and monitor for resolution of symptoms No additional orthopedic care needed at this time. Procedures Date of Service Date of Service: 04/11/21
--- NOTE | 2021-04-11 15:45 | P.HPHOSP_ITS ---
History of Present Illness Date of Service: 04/11/21 Chief Complaint: right hand pain and swelling This is a 76-year-old Citizen [place]-speaking male who presents to the emergency department today with pain and swelling of his right hand. History was obtained through the use court interpreter. He initially noticed swelling and pain yesterday and when he woke up this morning the swelling was significantly worse. He denies any trauma to the area. He has decreased range of motion of the right hand and difficulty making a fist. In the emergency department he was afebrile. Lab work was significant for leukocytosis of 14.2, ESR was elevated at 44, CRP 5.94. Xray of right hand showed soft tissue swelli ng. He was evaluated by Orthopedic Service who did not feel that this represented tenosynovitis, did not feel like he needed any further workup at this time. He was started on IV vancomycin and Zosyn. His lab work was also significant for creatinine of 2.33. Review of Systems Review of Systems: Yes all other systems are reviewed and are negative Constitutional: Constitutional: Denies chills and Denies fever(s) Cardiovascular: Cardiovascular: Denies chest pain Respiratory: Respiratory: Denies cough Gastrointestinal: Gastrointestinal: Denies abdominal pain [facility] Medical History CAD (coronary artery disease) CKD (chronic kidney disease) stage 3, GFR 30-59 ml/min Diabetes type 2, uncontrolled Diabetic polyneuropathy associated with type 2 diabetes mellitus Dyslipidemia Essential hypertension Heart failure with preserved ejection fraction 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 Obesity (BMI 30-39.9) SRINIVASA (obstructive sleep apnea) Family History Father Heart disease Diabetes mellitus Mother Diabetes mellitus Surgical History Hx of cardiac catheterization Hx of colonoscopy Social History Alcohol intake: never Smoking Status: Never smoker Use of substances other than those prescribed or required for medical reasons: No Advance Directives: Yes Advance Directives Information Provided: No Advance Directives on File: No Meds Allergies Allergy/AdvReac Type Severity Reaction Status Date / Time No Known Allergies Allergy Verified 01/14/21 18:58 [No Known Allergies*] Active Medications: Current Medications Generic Name Dose Route Start Last Admin Trade Name Jrq PRN Reason Stop Dose Admin Pharmacy Consult 1 each 04/11/21 13:44 Consult Rx Perform Med Rec MISCELLANE ONCE PRN Consult order Home Medications Medication Instructions Recorded Confirmed Last Taken Type atorvastatin 40 mg tablet 40 mg PO BEDTIME 10/29/20 04/11/21 04/10/21 History cholecalciferol (vitamin D3) 50 50 mcg PO DAILY@1200 10/29/20 04/11/21 04/10/21 History mcg (2,000 unit) capsule lisinopril 20 mg tablet 20 mg PO DAILY@1200 10/29/20 04/11/21 04/10/21 History metoprolol succinate 25 mg 25 mg PO DAILY@1200 10/29/20 04/11/21 04/10/21 History tablet,extended release 24 hr albuterol sulfate 90 mcg/actuation 2 puff INHALATION Q6H PRN 02/04/21 04/11/21 Unknown History aerosol inhaler aspirin 81 mg tablet,delayed 81 mg PO DAILY 02/17/21 04/11/21 Unknown History release budesonide [Pulmicort Flexhaler] 2 puff PO BID 04/11/21 04/11/21 Unknown History insulin glargine U-300 conc 17 unit SUBCUT BEDTIME 04/11/21 04/11/21 Unknown History [Toujeo SoloStar U-300 Insulin] potassium chloride 20 meq PO DAILY@1200 04/11/21 04/11/21 04/10/21 History Physical Exam Vital Signs and Narrative: Vital Signs: Last Vital Signs Temp 99 F 04/11/21 10:04 Pulse 96 04/11/21 12:23 Resp 15 04/11/21 12:23 BP 127/72 04/11/21 12:23 Pulse Ox 99 04/11/21 10:04 Body Mass Index 31.8 Const: General: comfortable, no acute distress, alert and awake Nutritional Appearance: well nourished Orientation/consciousness: patient oriented x3 HENMT: Head: Yes normocephalic and Yes atraumatic Eyes: Sclerae: sclerae normal Chest: Chest palpation & inspection: normal inspection of the chest Resp: Effort & Inspection: normal respiratory effort and no respiratory distress Cardio: Rate: regular rate Rhythm: regular rhythm GI: Palpation (GI): Soft to palpation and nontender Skin: Other: Neuro: General: patient oriented x3 Cranial nerves: Yes CN's II-XII intact bilaterally and Yes Bilaterally intact EOM present Results Labs CBC and Chem 7: 04/11/21 11:06 04/11/21 11:05 Labs: Laboratory Results - last 24 hr 04/11/21 04/11/21 04/11/21 11:05 11:05 11:05 MCV MCH MCHC RDW Plt Count MPV Immature Gran % (Auto) Neut % (Auto) Lymph % (Auto) [place] % (Auto) Eos % (Auto) Baso % (Auto) Lymph # (Auto) [place] # (Auto) Eos # (Auto) Baso # (Auto) Abs Immat Gran (auto) Absolute Neuts (auto) Absolute Nucleated RBC Nucleated RBC % (auto) ESR PT 13.9 H INR 1.2 H APTT 32.5 Anion Gap 17 Estim Creat Clear Calc 26.2 Estimated GFR 28 Random Glucose 246 H Lactic Acid 1.3 Calcium 9.8 Total Bilirubin 1.8 H AST 18 ALT 24 Alkaline Phosphatase 101 C-Reactive Protein 5.94 H Total Protein 7.5 Albumin 4.2 04/11/21 04/11/21 11:06 11:06 MCV 90.0 MCH 28.1 MCHC 31.2 RDW 14.0 Plt Count 223 MPV 11.2 Immature Gran % (Auto) 0.4 Neut % (Auto) 81.9 H Lymph % (Auto) 6.9 L [place] % (Auto) 10.1 Eos % (Auto) 0.4 Baso % (Auto) 0.3 Lymph # (Auto) 1.0 L [place] # (Auto) 1.4 H Eos # (Auto) 0.1 Baso # (Auto) 0.0 Abs Immat Gran (auto) 0.06 H Absolute Neuts (auto) 11.6 H Absolute Nucleated RBC 0.000 Nucleated RBC % (auto) 0.0 ESR 44 H PT INR APTT Anion Gap Estim Creat Clear Calc Estimated GFR Random Glucose Lactic Acid Calcium Total Bilirubin AST ALT Alkaline Phosphatase C-Reactive Protein Total Protein Albumin Imaging Radiologist's Impressions: Impressions Wrist X-Ray 04/11/21 10:15 IMPRESSION: Soft tissue swelling. Mild arthritis at the first [facility] joint. Hand X-Ray 04/11/21 10:38 IMPRESSION: No evidence of osteomyelitis. Arthritis at the PIP joint of the third finger and first [facility] joint. Soft tissue swelling. Assessment and Plan (1) Cellulitis of right hand: Status: Acute (2) Diabetes type 2, uncontrolled: Qualifiers: Glycemic state: with hyperglycemia Qualified Code(s): E11.65 - Type 2 diabetes mellitus with hyperglycemia Status: Acute This is a 76-year-old Citizen [place]-speaking diabetes, CKD3, CAD, HTN, HDL, HFpEF who presents to the emergency department with 1 day history of increasing swelling, pain and redness of the right hand found to have cellulitis Sepsis Meets sepsis criteria with tachycardia leukocytosis LA wnl, BP stable. Sepsis focused exam completed r/t underlying right hand cellulitis Right hand cellulitis seen by ortho in ED, does not feel that this represents tenosynovitis -continue IV vanco and zosyn MORTEZA on CKD3 SCr 2.3. Baseline around 1.9 -IV fluid -hold Lasix, lisinopril -avoid nephrotoxins when possible -monitor renal function closely DM -convert Toujeo to Lantus -Renetta NF, will hold -SSI, POC, ADA diet CAD -continue aspirin, statin, metoprolol 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 -hold lisinopril for morteza -continue metoprolol DVT prophylaxis-Lovenox Code status-full code Attending-Dr. Matos
[2021-04-11 16:40] LABS: COVID-19 Test Negative (Negative)
--- NOTE | 2021-04-11 17:14 | PC.NURSE ---
report given to s3
[2021-04-11 18:05] VITALS: BP 134/73; PULSE 104; RESP 15; TEMP 36.9; O2SAT 99
[2021-04-11 18:18] LABS: Glucose, Whole Blood 240 mg/dL (60-115)
[2021-04-11] MEDS: 0.9 % Sodium Chloride 1,000 ML 100 ML IVCONT (18:20)
[2021-04-11] MEDS: Insulin Lispro 100 UNIT/ML 3 ML VIAL SUBCUT ×2 (18:20→20:52)
[2021-04-11] MEDS: Piperacillin Sodium/Tazobactam 2.25 GM in 0.9 % Sodium Chloride 50 ML IV (18:21)
[2021-04-11] MEDS: Enoxaparin Sodium 30 MG/0.3 ML SYRINGE SUBCUT (18:21)
[2021-04-11] MEDS: Budesonide 180 MCG AER.POW.BA 2 PUFF INHALE (20:20)
[2021-04-11 20:22] VITALS: PULSE 104; O2SAT 99
[2021-04-11 20:34] LABS: Glucose, Whole Blood 279 mg/dL (60-115)
[2021-04-11] MEDS: Atorvastatin Calcium 40 MG TABLET PO (20:51)
[2021-04-11] MEDS: Insulin Glargine,Hum.rec.anlog 100 UNIT/ML 10 ML VIAL 13 UNIT SUBCUT (20:52)
[2021-04-11 22:00] VITALS: PULSE 104; RESP 18; O2SAT 99
--- NOTE | 2021-04-11 22:26 | PM.EVENT ---
Event Note Date of Service: 04/12/21 Event Note: 76-year-old [place] Citizen-speaking diabetes, CKD3, CAD, HTN, HDL, HFpEF who presents to the emergency department with 1 day history of increasing swelling, pain and redness of the right hand found to have cellulitis. seen and examined , labs , imaging revewed. physical exam: Cvs: rrr, [id number] , no murmur res: clear to auscultation ,no rhonchii or wheezing abd: no rebound or guarding ,nt, bs present. ext pulses present , no cyanosis right hand : could not extend hand much , can flex his finger but could not make fist. Still has stiffness but improving neuro: axo3 , nonfocal assessment an dplan coordinated in APc's note agree with the plan continue iv antibiotics surgery -recommended no surgical intervention, continue antibiotics. Official consult still pending MORTEZA: Hold nephrotoxic meds Encourage p.o. hydration Will monitor in a.m.
[2021-04-12] VITALS (8 sets, daily range): BP systolic 109–149; BP diastolic 62–74; PULSE 94–102; RESP 16–19; TEMP 36.6–37.4; O2SAT 96–99
[2021-04-12] MEDS: Piperacillin Sodium/Tazobactam 2.25 GM in 0.9 % Sodium Chloride 50 ML IV ×5 (00:42→23:33)
[2021-04-12 06:09] LABS: Hemoglobin 11.6 g/dl (14.0-18.0); Mean Corpuscular HGB Conc 31.4 g/dl (31.0-36.0); Mean Corpuscular Hemoglobin 28.5 pg (27.0-33.0); Mean Corpuscular Volume 90.9 fL (80-98); Mean Platelet Volume 11.8 fL (9.4-12.4); Platelet Count 192 X10*3/uL (160-400); Red Blood Count 4.07 X10*6/uL (4.60-5.80); Red Cell Distribution Width 14.2 % (11.0-16.0); White Blood Count 14.1 X10*3/uL (4.8-10.8)
[2021-04-12 06:42] LABS: Anion Gap 15 (12-20); Blood Urea Nitrogen 59 mg/dL (9-16); Calcium 8.9 mg/dL (8.4-10.2); Carbon Dioxide 27 mmol/L (22-29); Chloride 106 mmol/L (96-108); Creatinine Clr Calc Pharmacy 36.2; Estimated Glomerular Filt Rate 40; Glucose Random 162 mg/dL (60-115); Potassium 3.6 mmol/L (3.3-5.1); Sodium 144 mmol/L (135-145)
[2021-04-12 07:16] LABS: Glucose, Whole Blood 163 mg/dL (60-115)
[2021-04-12] MEDS: Insulin Lispro 100 UNIT/ML 3 ML VIAL SUBCUT ×4 (08:03→20:47)
[2021-04-12] MEDS: Budesonide 180 MCG AER.POW.BA 2 PUFF INHALE ×2 (08:03→20:20)
[2021-04-12] MEDS: Aspirin Enteric Coated 81 MG TABLET.DR PO (08:03)
[2021-04-12] MEDS: 0.9 % Sodium Chloride Flush 3 ML SYRINGE IVFLUSH ×2 (08:04→15:44)
[2021-04-12] MEDS: Morphine Sulfate 2 MG/ML CARTRIDGE IVPUSH (09:20)
--- NOTE | 2021-04-12 09:39 | PM.PNORT ---
Subjective Subjective Date of Service: 04/12/21 Interval history: Right hand cellulitis. Patient has received abx for 24 hours now. He continues to have pain in the right hand. Pain is well managed currently. He is resting in bed cofortably. No overnight events. No additional complaints. Physical Exam Vital Signs: Vital Signs: Last Vital Signs Temp 98.1 F 04/12/21 07:02 Pulse 94 04/12/21 07:02 Resp 19 04/12/21 07:02 BP 149/74 H 04/12/21 07:02 Pulse Ox 96 04/12/21 07:02 Body Mass Index 31.8 Const: General: cooperative, healthy appearing and no acute distress Resp: Effort & Inspection: normal respiratory effort and able to speak in complete sentences Cardio: Rate: regular rate Peripheral pulses: Peripheral pulses 2+ throughout GI: Palpation (GI): Soft to palpation Skin: Lesions: no lesions Rashes: no rashes Extrem: Other: Right hand erythema has decreased on the dorsal and volar aspect of the hand. The patient is able to flex and extend digits but is significantly limited due to moderate pain. No open lesions or abrasions. No fluctuance note. Sensation intact. Radial pulse intact. Progress Note: A&P Assessment and plan (1) Cellulitis: Status: Acute Assessment and Plan: Continue abx treatment per medicine team Unlikely tenosynovitis Continue to work on gentle wrist and digit ROM (2) Cellulitis of right hand: Status: Acute Fall Risk Details Current Medications: Current Medications Generic Name Dose Route Start Last Admin Trade Name Freq PRN Reason Stop Dose Admin Acetaminophen 650 mg 04/11/21 17:14 Acetaminophen 325 Mg Tablet PO Q6H PRN Pain, Mild (Pain Scale 1-3) Albuterol Sulfate 2 puff 04/11/21 17:14 Albuterol Sulfate 90 Mcg 8 Gm Inhaler INHALE Q6H PRN Shortness Of Breath Aspirin 81 mg 04/12/21 09:00 04/12/21 08:03 Aspirin Enteric Coated 81 Mg Tablet. PO 81 mg DAILY KIM Administration Atorvastatin Calcium 40 mg 04/11/21 21:00 04/11/21 20:51 Atorvastatin Calcium 40 Mg Tablet PO 40 mg BEDTIME KIM Administration Budesonide 2 puff 04/11/21 21:00 04/12/21 08:03 Budesonide 180 Mcg Aer.Pow.Ba INHALE 2 puff BID KIM Administration Docusate Sodium 100 mg 04/11/21 17:14 Docusate Sodium 100 Mg Capsule PO DAILY PRN Constipation Enoxaparin Sodium 30 mg 04/11/21 17:15 04/11/21 18:21 Enoxaparin Sodium 30 Mg/0.3 Ml Syringe SUBCUT 30 mg Q24H [facility] Administration Piperacillin Sod/Tazobactam 50 mls @ 100 mls/hr 04/11/21 18:00 04/12/21 08:04 Sod 2.25 gm/ Sodium Chloride IV Infused Q6H [facility] Infusion Vancomycin HCl 750 mg/ Sodium 265 mls @ 265 mls/hr 04/12/21 13:00 Chloride IV Q24H [facility] Insulin Glargine 13 unit 04/11/21 21:00 04/11/21 20:52 Insulin Glargine,Hum.Rec.Anlog 100 Unit/Ml 10 Ml Vial SUBCUT 13 unit BEDTIME [facility] Administration Insulin Human Lispro 0 unit 04/11/21 17:14 04/12/21 08:03 Insulin Lispro 100 Unit/Ml 3 Ml Vial SUBCUT 2 unit QIDACHS [facility] Administration Protocol Metoprolol Succinate 25 mg 04/12/21 12:00 Metoprolol Succinate Er 25 Mg Tab.Er.24h PO DAILY@1200 [facility] Protocol Morphine Sulfate 2 mg 04/12/21 08:14 04/12/21 09:20 Morphine Sulfate 2 Mg/Ml Cartridge IVPUSH 2 mg Q4H PRN Administration Pain, Severe (Pain Scale 7-10) Ondansetron HCl 4 mg 04/11/21 17:14 Ondansetron Hcl 4 Mg/2 Ml Vial IVPUSH Q8H PRN Nausea and Vomiting Oxycodone HCl 5 mg 04/12/21 08:14 Oxycodone Hcl Immed Release 5 Mg Tablet PO Q6H PRN Pain, Moderate (Pain Scale 4-6 Pharmacy Consult 1 each 04/11/21 13:44 Consult Rx Perform Med Rec MISCELLANE ONCE PRN Consult order Pharmacy Consult 1 each 04/11/21 15:43 Consult Rx Vancomycin Dosing MISCELLANE DAILY PRN Consult order Sodium Chloride 3 ml 04/11/21 17:14 04/12/21 08:04 0.9 % Sodium Chloride Flush 3 Ml Syringe IVFLUSH 3 ml QSHIFT [facility] Administration Vitamin D 50 mcg 04/12/21 12:00 Cholecalciferol (Vitamin D3) 25 Mcg Tablet PO DAILY@1200 KIM Time Spent With Patient Time: Total time spent is greater than 50% in coordination of care (as documented) at patient's floor/unit and/or counseling patient: Time with patient: less than 15 minutes Procedures Date of Service Date of Service: 04/12/21
--- NOTE | 2021-04-12 10:38 | HO.PM.IMPN ---
Subjective Subjective Date of Service: 04/12/21 <GOLDIE Garcia - Last Filed: 04/12/21 10:53> 04/12/21 <Alyssa Matos MD - Last Filed: 04/12/21 15:25> Interval History: Seen and examined this morning, Follow-up for right hand swelling/cellulitis Continues to have significant pain, decreased range of motion and swelling Denies fever, chills <GOLDIE Garcia - Last Filed: 04/12/21 10:53> Review of Systems Review of Systems: Yes all other systems are reviewed and are negative <GOLDIE Garcia - Last Filed: 04/12/21 10:53> Constitutional Constitutional: Denies chills and Denies fever(s) <GOLDIE Garcia - Last Filed: 04/12/21 10:53> Eyes Eyes: Reports as per HPI and Reports no additional eye complaints <GOLDIE Garcia - Last Filed: 04/12/21 10:53> ENT Ears, Nose, Mouth, and Throat: Reports system reviewed and no additional complaints, except as documented and Reports as per HPI <GOLDIE Garcia - Last Filed: 04/12/21 10:53> Cardiovascular Cardiovascular: Denies chest pain <GOLDIE Garcia - Last Filed: 04/12/21 10:53> Respiratory Respiratory: Denies cough <GOLDIE Garcia - Last Filed: 04/12/21 10:53> Gastrointestinal Gastrointestinal: Denies abdominal pain <GOLDIE Garcia - Last Filed: 04/12/21 10:53> Genitourinary Genitourinary: Reports no additional male genitourinary complaints and Reports as per HPI <GOLDIE Garcia - Last Filed: 04/12/21 10:53> Musculoskeletal Musculoskeletal: Reports no additional musculoskeletal complaints, Reports as per HPI, Reports arthralgias (Right hand) and Reports joint swelling (Right hand/wrist) <GOLDIE Garcia - Last Filed: 04/12/21 10:53> Neurologic Neurologic: Reports system reviewed and no additional complaints, except as documented and Reports as per HPI <GOLDIE Garcia - Last Filed: 04/12/21 10:53> Psychiatric Psychiatric: Reports no additional psychiatric complaints and Reports as per HPI <GOLDIE Garcia - Last Filed: 04/12/21 10:53> Physical Exam Vital Signs: Vital Signs: Last Vital Signs Temp 98.1 F 04/12/21 07:02 Pulse 94 04/12/21 07:02 Resp 19 04/12/21 07:02 BP 149/74 H 04/12/21 07:02 Pulse Ox 96 04/12/21 07:02 Body Mass Index 31.8 <GOLDIE Garcia - Last Filed: 04/12/21 10:53> Const: General: comfortable, no acute distress, alert and awake <GOLDIE Garcia - Last Filed: 04/12/21 10:53> Nutritional Appearance: well nourished <GOLDIE Garcia - Last Filed: 04/12/21 10:53> Orientation/consciousness: patient oriented x3 <GOLDIE Garcia - Last Filed: 04/12/21 10:53> HENMT: Head: Yes normocephalic and Yes atraumatic <GOLDIE Garcia - Last Filed: 04/12/21 10:53> Eyes: Sclerae: sclerae normal <GOLDIE Garcia - Last Filed: 04/12/21 10:53> Chest: Chest palpation & inspection: normal inspection of the chest <GOLDIE Garcia Last Filed: 04/12/21 10:53> Resp: Effort & Inspection: normal respiratory effort and no respiratory distress <GOLDIE Garcia - Last Filed: 04/12/21 10:53> Cardio: Rate: regular rate <GOLDIE Garcia Last Filed: 04/12/21 10:53> Rhythm: regular rhythm <GOLDIE Garcia - Last Filed: 04/12/21 10:53> GI: Palpation (GI): Soft to palpation and nontender <GOLDIE Garcia - Last Filed: 04/12/21 10:53> Skin: Other: Right hand - generalized swelling of right hand. Unable to make fist due to pain, pain with passive extension of fingers especially index and middle fingers. some erythema of dorsal surface of hand. No open wound <GOLDIE Garcia - Last Filed: 04/12/21 10:53> Neuro: General: patient oriented x3 <GOLDIE Garcia - Last Filed: 04/12/21 10:53> Cranial nerves: Yes CN's II-XII intact bilaterally and Yes Bilaterally intact EOM present <GOLDIE Garcia - Last Filed: 04/12/21 10:53> Objective Data Current Medications Generic Name Dose Route Start Last Admin Trade Name Freq PRN Reason Stop Dose Admin Acetaminophen 650 mg 04/11/21 17:14 Acetaminophen 325 Mg Tablet PO Q6H PRN Pain, Mild (Pain Scale 1-3) Albuterol Sulfate 2 puff 04/11/21 17:14 Albuterol Sulfate 90 Mcg 8 Gm Inhaler INHALE Q6H PRN Shortness Of Breath Aspirin 81 mg 04/12/21 09:00 04/12/21 08:03 Aspirin Enteric Coated 81 Mg Tablet.Dr PO 81 mg DAILY KIM Administration Atorvastatin Calcium 40 mg 04/11/21 21:00 04/11/21 20:51 Atorvastatin Calcium 40 Mg Tablet PO 40 mg BEDTIME KIM Administration Budesonide 2 puff 04/11/21 21:00 04/12/21 08:03 Budesonide 180 Mcg Aer.Pow.Ba INHALE 2 puff BID KIM Administration Docusate Sodium 100 mg 04/11/21 17:14 Docusate Sodium 100 Mg Capsule PO DAILY PRN Constipation Enoxaparin Sodium 30 mg 04/11/21 17:15 04/11/21 18:21 Enoxaparin Sodium 30 Mg/0.3 Ml Syringe SUBCUT 30 mg Q24H KIM Administration Piperacillin Sod/Tazobactam 50 mls @ 100 mls/hr 04/11/21 18:00 04/12/21 08:04 Sod 2.25 gm/ Sodium Chloride IV Infused Q6H KIM Infusion Vancomycin HCl 1,000 mg/ 270 mls @ 265 mls/hr 04/12/21 13:00 Sodium Chloride IV Q24H KIM Insulin Glargine 13 unit 04/11/21 21:00 04/11/21 20:52 Insulin Glargine,Hum.Rec.Anlog 100 Unit/Ml 10 Ml Vial SUBCUT 13 unit BEDTIME [facility] Administration Insulin Human Lispro 0 unit 04/11/21 17:14 04/12/21 08:03 Insulin Lispro 100 Unit/Ml 3 Ml Vial SUBCUT 2 unit QIDACHS [facility] Administration Protocol Metoprolol Succinate 25 mg 04/12/21 12:00 Metoprolol Succinate Er 25 Mg Tab.Er.24h PO DAILY@1200 KIM Protocol Morphine Sulfate 2 mg 04/12/21 08:14 04/12/21 09:20 Morphine Sulfate 2 Mg/Ml Cartridge IVPUSH 2 mg Q4H PRN Administration Pain, Severe (Pain Scale 7-10) Ondansetron HCl 4 mg 04/11/21 17:14 Ondansetron Hcl 4 Mg/2 Ml Vial IVPUSH Q8H PRN Nausea and Vomiting Oxycodone HCl 5 mg 04/12/21 08:14 Oxycodone Hcl Immed Release 5 Mg Tablet PO Q6H PRN Pain, Moderate (Pain Scale 4-6 Pharmacy Consult 1 each 04/11/21 13:44 Consult Rx Perform Med Rec MISCELLANE ONCE PRN Consult order Pharmacy Consult 1 each 04/11/21 15:43 Consult Rx Vancomycin Dosing MISCELLANE DAILY PRN Consult order Sodium Chloride 3 ml 04/11/21 17:14 04/12/21 08:04 0.9 % Sodium Chloride Flush 3 Ml Syringe IVFLUSH 3 ml QSHIFT [facility] Administration Vitamin D 50 mcg 04/12/21 12:00 Cholecalciferol (Vitamin D3) 25 Mcg Tablet PO DAILY@1200 KIM <GOLDIE Garcia - Last Filed: 04/12/21 10:53> Labs CBC & Chem 7: : 04/12/21 05:28 04/12/21 05:28 <GOLDIE Garcia - Last Filed: 04/12/21 10:53> Assessment and Plan (1) Cellulitis: Status: Acute <GOLDIE Garcia - Last Filed: 04/12/21 10:53> (2) Cellulitis of right hand: Status: Acute <GOLDIE Garcia - Last Filed: 04/12/21 10:53> Assessment and Plan: This is a 76-year-old Ukrainian-speaking diabetes, CKD3, CAD, HTN, HDL, HFpEF who presents to the emergency department with 1 day history of increasing swelling, pain and redness of the right hand found to have cellulitis Sepsis.poa Meets sepsis criteria with tachycardia leukocytosis LA wnl, BP stable. Sepsis focused exam completed r/t underlying right hand cellulitis Right hand cellulitis Persistent leukocytosis seen by ortho in ED, does not feel that this represents tenosynovitis - no need for further workup -continue IV vanco and zosyn (started 04/11) MORTEZA on CKD3 Resolved. Initial SCr 2.3, down to 1.69 within the patient's baseline -d/c IV fluid -hold Lasix, lisinopril -monitor renal function closely DM -convert Toujeo to Lantus -[place] NF, will hold -SSI, POC, ADA diet CAD -continue aspirin, statin, metoprolol 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 -hold lisinopril for morteza -continue metoprolol DVT prophylaxis-Lovenox Code status-full code Attending-Dr. Matos <GOLDIE Garcia - Last Filed: 04/12/21 10:53>
[2021-04-12 11:15] LABS: Glucose, Whole Blood 237 mg/dL (60-115)
[2021-04-12] MEDS: Cholecalciferol (Vitamin D3) 25 MCG TABLET 50 MCG PO (11:34)
[2021-04-12] MEDS: Metoprolol Succinate ER 25 MG TAB.ER.24H PO (13:12)
[2021-04-12] MEDS: vancomycin HCL 1,000 MG in 0.9 % Sodium Chloride 250 ML 265 MG IV (14:32)
[2021-04-12 16:34] LABS: Glucose, Whole Blood 188 mg/dL (60-115)
[2021-04-12] MEDS: Enoxaparin Sodium 30 MG/0.3 ML SYRINGE SUBCUT (16:45)
[2021-04-12 20:28] LABS: Glucose, Whole Blood 235 mg/dL (60-115)
[2021-04-12] MEDS: Insulin Glargine,Hum.rec.anlog 100 UNIT/ML 10 ML VIAL 13 UNIT SUBCUT (20:46)
[2021-04-12] MEDS: Atorvastatin Calcium 40 MG TABLET PO (20:46)
--- NOTE | 2021-04-12 22:53 | P.CNID_ITS ---
History of Present Illness Data of Consult Service Date: 04/12/21 Requesting physician: Alyssa Matos Primary Care Provider: Miriam Gray MD HPI Reason for consult: right hand swelling He has redness and swelling hand and no injury or bite for last 3 days Review of Systems Review of Systems: Yes all other systems are reviewed and are negative [facility] Past Medical History Medical History (Updated 04/12/21 @ 22:56 by Ledy York MD) CAD (coronary artery disease) CKD (chronic kidney disease) stage 3, GFR 30-59 ml/min Diabetes type 2, uncontrolled Diabetic polyneuropathy associated with type 2 diabetes mellitus Dyslipidemia Essential hypertension Heart failure with preserved ejection fraction 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 Obesity (BMI 30-39.9) SRINIVASA (obstructive sleep apnea) Right hand pain Family History Family History Father Heart disease Diabetes mellitus Mother Diabetes mellitus Family history: reviewed and not pertinent Surgical History Surgical History Hx of cardiac catheterization Hx of colonoscopy Social History Social History Household Members: Spouse Housing: Condominium Do you presently have visiting nurse or other home services: No Alcohol intake: never Smoking Status: Never smoker Use of substances other than those prescribed or required for medical reasons: No Currently Displaying Signs/Symptoms of Drug Intoxication Withdrawal: No Have you been hit, kicked, punched, or otherwise hurt by someone within the past year? If so, by whom?: No Do you feel safe in your current relationship?: Yes Is there a partner from a previous relationship who is making you feel unsafe now?: No Are you made to feel afraid or neglected: No Advance Directives: Yes Advance Directives Information Provided: No Advance Directives on File: No Advance Directives Date on File: 04/11/21 Do you have thoughts of harming others: None Do you have a plan to hurt others: No Plan Recently lost weight without trying: No Eating poorly because of decreased appetite: No Nutrition Risks: No Nutritional Risk Poor oral hygiene: No Meds Allergies Allergy/AdvReac Type Severity Reaction Status Date / Time No Known Allergies Allergy Verified 04/11/21 17:18 [No Known Allergies*] Active Medications: Current Medications Generic Name Dose Route Start Last Admin Trade Name Freq PRN Reason Stop Dose Admin Acetaminophen 650 mg 04/11/21 17:14 Acetaminophen 325 Mg Tablet PO Q6H PRN Pain, Mild (Pain Scale 1-3) Albuterol Sulfate 2 puff 04/11/21 17:14 Albuterol Sulfate 90 Mcg 8 Gm Inhaler INHALE Q6H PRN Shortness Of Breath Aspirin 81 mg 04/12/21 09:00 04/12/21 08:03 Aspirin Enteric Coated 81 Mg Tablet.Dr PO 81 mg DAILY KIM Administration Atorvastatin Calcium 40 mg 04/11/21 21:00 04/12/21 20:46 Atorvastatin Calcium 40 Mg Tablet PO 40 mg BEDTIME KIM Administration Budesonide 2 puff 04/11/21 21:00 04/12/21 20:20 Budesonide 180 Mcg Aer.Pow.Ba INHALE 2 puff BID KIM Administration Docusate Sodium 100 mg 04/11/21 17:14 Docusate Sodium 100 Mg Capsule PO DAILY PRN Constipation Enoxaparin Sodium 30 mg 04/11/21 17:15 04/12/21 16:45 Enoxaparin Sodium 30 Mg/0.3 Ml Syringe SUBCUT 30 mg Q24H KIM Administration Piperacillin Sod/Tazobactam 50 mls @ 100 mls/hr 04/11/21 18:00 04/12/21 18:11 Sod 2.25 gm/ Sodium Chloride IV Infused Q6H KIM Infusion Vancomycin HCl 1,000 mg/ 270 mls @ 265 mls/hr 04/12/21 13:00 04/12/21 16:45 Sodium Chloride IV Infused Q24H KIM Infusion Insulin Glargine 13 unit 04/11/21 21:00 04/12/21 20:46 Insulin Glargine,Hum.Rec.Anlog 100 Unit/Ml 10 Ml Vial SUBCUT 13 unit BEDTIME KIM Administration Insulin Human Lispro 0 unit 04/11/21 17:14 04/12/21 20:47 Insulin Lispro 100 Unit/Ml 3 Ml Vial SUBCUT 4 unit QIDACHS KIM Administration Protocol Metoprolol Succinate 25 mg 04/12/21 12:00 04/12/21 13:12 Metoprolol Succinate Er 25 Mg Tab.Er.24h PO 25 mg DAILY@1200 [facility] Administration Protocol Morphine Sulfate 2 mg 04/12/21 08:14 04/12/21 09:20 Morphine Sulfate 2 Mg/Ml Cartridge IVPUSH 2 mg Q4H PRN Administration Pain, Severe (Pain Scale 7-10) Ondansetron HCl 4 mg 04/11/21 17:14 Ondansetron Hcl 4 Mg/2 Ml Vial IVPUSH Q8H PRN Nausea and Vomiting Oxycodone HCl 5 mg 04/12/21 08:14 Oxycodone Hcl Immed Release 5 Mg Tablet PO Q6H PRN Pain, Moderate (Pain Scale 4-6 Pharmacy Consult 1 each 04/11/21 13:44 Consult Rx Perform Med Rec MISCELLANE ONCE PRN Consult order Pharmacy Consult 1 each 04/11/21 15:43 Consult Rx Vancomycin Dosing MISCELLANE DAILY PRN Consult order Sodium Chloride 3 ml 04/11/21 17:14 04/12/21 15:44 0.9 % Sodium Chloride Flush 3 Ml Syringe IVFLUSH 3 ml QSHIFT [facility] Administration Vitamin D 50 mcg 04/12/21 12:00 04/12/21 11:34 Cholecalciferol (Vitamin D3) 25 Mcg Tablet PO 50 mcg DAILY@1200 [facility] Administration Home Medications Medication Instructions Recorded Confirmed Last Taken Type atorvastatin 40 mg tablet 40 mg PO BEDTIME 10/29/20 04/11/21 04/10/21 History cholecalciferol (vitamin D3) 50 50 mcg PO DAILY@1200 10/29/20 04/11/21 04/10/21 History mcg (2,000 unit) capsule lisinopril 20 mg tablet 20 mg PO DAILY@1200 10/29/20 04/11/21 04/10/21 History metoprolol succinate 25 mg 25 mg PO DAILY@1200 10/29/20 04/11/21 04/10/21 History tablet,extended release 24 hr albuterol sulfate 90 mcg/actuation 2 puff INHALATION Q6H PRN 02/04/21 04/11/21 Unknown History aerosol inhaler aspirin 81 mg tablet,delayed 81 mg PO DAILY 02/17/21 04/11/21 Unknown History release budesonide [Pulmicort Flexhaler] 2 puff PO BID 04/11/21 04/11/21 Unknown History insulin glargine U-300 conc 17 unit SUBCUT BEDTIME 04/11/21 04/11/21 Unknown History [Endy Rm U-300 Insulin] potassium chloride 20 meq PO DAILY@1200 04/11/21 04/11/21 04/10/21 History Physical Exam Vital Signs: Vital Signs: Last Vital Signs Temp 99.3 F 04/12/21 19:33 Pulse 102 H 04/12/21 19:33 Resp 17 04/12/21 19:33 BP 129/63 04/12/21 19:33 Pulse Ox 97 04/12/21 19:33 Body Mass Index 31.8 Const: General: cooperative HENMT: Head: Yes normal to inspection Mouth: Normal oral and palatal mucosa present Eyes: General: appearance normal, both eyes and all related structures Resp: Effort & Inspection: normal respiratory effort Cardio: Rate: regular rate Rhythm: regular rhythm GI: Palpation (GI): Soft to palpation and nontender Extrem: Other: right hand swollen,no extension redness up arm Results Labs CBC & Chem 7: 04/12/21 05:28 04/12/21 05:28 Labs: Short CBC 04/12/21 Range/Units 05:28 WBC 14.1 H (4.8-10.8) X10*3/uL Hgb 11.6 L (14.0-18.0) g/dl Hct 37.0 L (42-52) % Plt Count 192 (160-400) X10*3/uL BMP 04/12/21 05:28 Sodium 144 Potassium 3.6 Chloride 106 Carbon Dioxide 27 BUN 59 H Creatinine 1.69 H Calcium 8.9 D Microbiology Microbiology Results: Microbiology 04/11/21 11:14 Blood - Venous Blood Culture - Preliminary No growth after 24 hours. 04/11/21 11:05 Blood - Venous Blood Culture - Preliminary No growth after 24 hours. Assessment and Plan (1) Right hand pain: Status: Acute There is no injury Not sure this is cellulitis Stop broad spectrum antibiotics if blood culture negative tomorrow Po Doxycycline and check for gout
[2021-04-13] VITALS (7 sets, daily range): BP systolic 114–135; BP diastolic 67–73; PULSE 58–98; RESP 16–20; TEMP 36.3–36.6; O2SAT 96–99
[2021-04-13] MEDS: Piperacillin Sodium/Tazobactam 2.25 GM in 0.9 % Sodium Chloride 50 ML IV (05:42)
[2021-04-13 07:30] LABS: Glucose, Whole Blood 144 mg/dL (60-115)
[2021-04-13] MEDS: Budesonide 180 MCG AER.POW.BA 2 PUFF INHALE ×2 (07:37→19:37)
[2021-04-13] MEDS: oxyCODONE HCl Immed Release 5 MG TABLET PO (08:00)
[2021-04-13] MEDS: Aspirin Enteric Coated 81 MG TABLET.DR PO (08:00)
[2021-04-13] MEDS: 0.9 % Sodium Chloride Flush 3 ML SYRINGE IVFLUSH ×3 (08:00→20:26)
[2021-04-13 08:23] LABS: Hematocrit 39.1 % (42-52); Mean Corpuscular HGB Conc 30.7 g/dl (31.0-36.0); Mean Corpuscular Hemoglobin 28.2 pg (27.0-33.0); Mean Corpuscular Volume 91.8 fL (80-98); Mean Platelet Volume 11.6 fL (9.4-12.4); Platelet Count 196 X10*3/uL (160-400); Red Blood Count 4.26 X10*6/uL (4.60-5.80); Red Cell Distribution Width 14.5 % (11.0-16.0); White Blood Count 18.5 X10*3/uL (4.8-10.8)
[2021-04-13 08:55] LABS: Anion Gap 18 (12-20); Blood Urea Nitrogen 52 mg/dL (9-16); Carbon Dioxide 25 mmol/L (22-29); Chloride 103 mmol/L (96-108); Estimated Glomerular Filt Rate 37; Glucose Random 155 mg/dL (60-115); Potassium 3.7 mmol/L (3.3-5.1); Sodium 142 mmol/L (135-145)
[2021-04-13 08:59] LABS: Uric Acid 8.7 mg/dL (3.4-7.0)
[2021-04-13 09:03] LABS: Calcium 9.6 mg/dL (8.4-10.2)
[2021-04-13 11:24] LABS: Glucose, Whole Blood 298 mg/dL (60-115)
--- NOTE | 2021-04-13 11:28 | P.PNIM_ITS ---
Subjective Subjective Date of Service: 04/13/21 Interval History: follow up hand swelling still having swelling and pain no fever, chills Review of Systems Review of Systems: Yes all other systems are reviewed and are negative Constitutional Constitutional: Denies chills and Denies fever(s) Cardiovascular Cardiovascular: Denies chest pain Respiratory Respiratory: Denies cough Gastrointestinal Gastrointestinal: Denies abdominal pain Physical Exam Vital Signs: Vital Signs: Last Vital Signs Temp 98 F 04/13/21 07:15 Pulse 58 04/13/21 07:15 Resp 18 04/13/21 07:15 BP 123/72 04/13/21 11:15 Pulse Ox 96 04/13/21 07:15 Body Mass Index 31.8 Const: General: comfortable, no acute distress, alert and awake Nutritional Appearance: well nourished Orientation/consciousness: patient oriented x3 HENMT: Head: Yes normocephalic and Yes atraumatic Eyes: Sclerae: sclerae normal Chest: Chest palpation & inspection: normal inspection of the chest Resp: Effort & Inspection: normal respiratory effort and no respiratory distress Cardio: Rate: regular rate Rhythm: regular rhythm GI: Palpation (GI): Soft to palpation and nontender Skin: Other: Right hand - generalized swelling of right hand. Unable to make fist due to pain, pain with passive extension of fingers especially index and middle fingers. some erythema of dorsal surface of hand. No open wound Neuro: General: patient oriented x3 Cranial nerves: Yes CN's II-XII intact bilaterally and Yes Bilaterally intact EOM present Objective Data Current Medications Generic Name Dose Route Start Last Admin Trade Name Freq PRN Reason Stop Dose Admin Acetaminophen 650 mg 04/11/21 17:14 Acetaminophen 325 Mg Tablet PO Q6H PRN Pain, Mild (Pain Scale 1-3) Albuterol Sulfate 2 puff 04/11/21 17:14 Albuterol Sulfate 90 Mcg 8 Gm Inhaler INHALE Q6H PRN Shortness Of Breath Aspirin 81 mg 04/12/21 09:00 04/13/21 08:00 Aspirin Enteric Coated 81 Mg Tablet. PO 81 mg DAILY KIM Administration Atorvastatin Calcium 40 mg 04/11/21 21:00 04/12/21 20:46 Atorvastatin Calcium 40 Mg Tablet PO 40 mg BEDTIME KIM Administration Budesonide 2 puff 04/11/21 21:00 04/13/21 07:37 Budesonide 180 Mcg Aer.Pow.Ba INHALE 2 puff BID COUNTS INCLUDE 234 BEDS AT THE [facility] Administration Docusate Sodium 100 mg 04/11/21 17:14 Docusate Sodium 100 Mg Capsule PO DAILY PRN Constipation Enoxaparin Sodium 30 mg 04/11/21 17:15 04/12/21 16:45 Enoxaparin Sodium 30 Mg/0.3 Ml Syringe SUBCUT 30 mg Q24H KIM Administration Insulin Glargine 13 unit 04/11/21 21:00 04/12/21 20:46 Insulin Glargine,Hum.Rec.Anlog 100 Unit/Ml 10 Ml Vial SUBCUT 13 unit BEDTIME COUNTS INCLUDE 234 BEDS AT THE [facility] Administration Insulin Human Lispro 0 unit 04/11/21 17:14 04/13/21 07:44 Insulin Lispro 100 Unit/Ml 3 Ml Vial SUBCUT Not Given QIDACHS COUNTS INCLUDE 234 BEDS AT THE [facility] Protocol Metoprolol Succinate 25 mg 04/12/21 12:00 04/12/21 13:12 Metoprolol Succinate Er 25 Mg Tab.Er.24h PO 25 mg DAILY@1200 COUNTS INCLUDE 234 BEDS AT THE [facility] Administration Protocol Morphine Sulfate 2 mg 04/12/21 08:14 04/12/21 09:20 Morphine Sulfate 2 Mg/Ml Cartridge IVPUSH 2 mg Q4H PRN Administration Pain, Severe (Pain Scale 7-10) Ondansetron HCl 4 mg 04/11/21 17:14 Ondansetron Hcl 4 Mg/2 Ml Vial IVPUSH Q8H PRN Nausea and Vomiting Oxycodone HCl 5 mg 04/12/21 08:14 04/13/21 08:00 Oxycodone Hcl Immed Release 5 Mg Tablet PO 5 mg Q6H PRN Administration Pain, Moderate (Pain Scale 4-6 Pharmacy Consult 1 each 04/11/21 13:44 Consult Rx Perform Med Rec MISCELLANE ONCE PRN Consult order Pharmacy Consult 1 each 04/11/21 15:43 Consult Rx Vancomycin Dosing MISCELLANE DAILY PRN Consult order Prednisone 40 mg 04/13/21 11:00 Prednisone 20 Mg Tablet PO DAILY COUNTS INCLUDE 234 BEDS AT THE [facility] Sodium Chloride 3 ml 04/11/21 17:14 04/13/21 08:00 0.9 % Sodium Chloride Flush 3 Ml Syringe IVFLUSH 3 ml QSHIFT COUNTS INCLUDE 234 BEDS AT THE [facility] Administration Vitamin D 50 mcg 04/12/21 12:00 04/12/21 11:34 Cholecalciferol (Vitamin D3) 25 Mcg Tablet PO 50 mcg DAILY@1200 COUNTS INCLUDE 234 BEDS AT THE [facility] Administration Labs CBC & Chem 7: 04/13/21 07:52 04/13/21 07:52 Microbiology Microbiology Results: Microbiology 04/11/21 11:14 Blood - Venous Blood Culture - Preliminary No growth after 24 hours. 04/11/21 11:05 Blood - Venous Blood Culture - Preliminary No growth after 24 hours. Assessment and Plan (1) Cellulitis: Status: Acute (2) Cellulitis of right hand: Status: Acute Assessment and Plan: This is a 76-year-old Libyan-speaking diabetes, CKD3, CAD, HTN, HDL, HFpEF who presents to the emergency department with 1 day history of increasing swelling, pain and redness of the right hand initially thought to be related to cellulitis Met Sepsis criteria on arrival with leukocytosis and tachycardia initially thought to be r/t right hand cellulitis Right hand swelling did not respond with broad spectrum abx seen by ID Uric acid level elevated, will start prednisone for treatment of gout -d/c abx -pain control MORTEZA on CKD3 Creatinine within patient's baseline -Lasix, lisinopril on hold DM -convert Toujeo to Lantus -[place] NF, will hold -SSI, POC, ADA diet -watch BS control on steroids CAD -continue aspirin, statin, metoprolol 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 -lisinopril on hold -continue metoprolol DVT prophylaxis-Lovenox Code status-full code Attending-Dr. Yancey
[2021-04-13 11:57] LABS: Vancomycin Trough 8.6 mcg/mL (10.0-20.0)
[2021-04-13] MEDS: predniSONE 20 MG TABLET 40 MG PO (12:25)
[2021-04-13] MEDS: Cholecalciferol (Vitamin D3) 25 MCG TABLET 50 MCG PO (12:25)
[2021-04-13] MEDS: Metoprolol Succinate ER 25 MG TAB.ER.24H PO (12:26)
[2021-04-13] MEDS: Insulin Lispro 100 UNIT/ML 3 ML VIAL SUBCUT ×3 (12:26→20:26)
[2021-04-13] MEDS: Morphine Sulfate 2 MG/ML CARTRIDGE IVPUSH (12:51)
--- NOTE | 2021-04-13 15:17 | MHC.CM.PN ---
NURSE WIDE LOAD ESCORT NTOE E;ELECTRONIC MEDICAL RECORD REVIEWED CASE DISCUSSED WITH STAFF NURSE AND WITH [facility] [place] [facility] PATIENT WITH [facility]IL MESSENGER PATIENT LIVES WITH HIS HE IS ACTIVE INDEPENDENT IN ALL ADLS AND USES A CANE FOR AMBULATION , HE REPORTED HE ALSO HAS A WALKER AT HOME NBUT DOES NOT NEED IT) HE HAS NO VNA /NO DME SERVICES INT HE HOME AND DOES NOT FELL THAT HE NEEDS THEM AT THIS TIME , medicare imm explained and given to patient DISCHARGE PLAN HOME WITH HIS (NO SERVICES ) PCP RADHA GOODWIN Patient to call for post hospital discharge follow up trnansp family
[2021-04-13 16:03] LABS: Glucose, Whole Blood 258 mg/dL (60-115)
[2021-04-13] MEDS: Enoxaparin Sodium 30 MG/0.3 ML SYRINGE SUBCUT (16:26)
[2021-04-13 20:16] LABS: Glucose, Whole Blood 306 mg/dL (60-115)
[2021-04-13] MEDS: Atorvastatin Calcium 40 MG TABLET PO (20:26)
[2021-04-13] MEDS: Insulin Glargine,Hum.rec.anlog 100 UNIT/ML 10 ML VIAL 13 UNIT SUBCUT (20:26)
[2021-04-14] VITALS: BP 94/68; PULSE 84; RESP 18; TEMP 36.6; O2SAT 100
[2021-04-14 07:29] LABS: Hematocrit 34.5 % (42-52); Hemoglobin 10.7 g/dl (14.0-18.0); Mean Corpuscular Volume 90.3 fL (80-98); Mean Platelet Volume 12.1 fL (9.4-12.4); Platelet Count 178 X10*3/uL (160-400); Red Blood Count 3.82 X10*6/uL (4.60-5.80); Red Cell Distribution Width 14.3 % (11.0-16.0); White Blood Count 13.4 X10*3/uL (4.8-10.8)
[2021-04-14] MEDS: Budesonide 180 MCG AER.POW.BA 2 PUFF INHALE (07:46)
[2021-04-14 07:47] VITALS: PULSE 78; O2SAT 98
[2021-04-14 07:59] VITALS: BP 115/56; PULSE 83; RESP 18; TEMP 36.3; O2SAT 99
[2021-04-14 08:04] LABS: Glucose, Whole Blood 221 mg/dL (60-115)
[2021-04-14] MEDS: Aspirin Enteric Coated 81 MG TABLET.DR PO (08:29)
[2021-04-14] MEDS: 0.9 % Sodium Chloride Flush 3 ML SYRINGE IVFLUSH (08:29)
[2021-04-14] MEDS: Insulin Lispro 100 UNIT/ML 3 ML VIAL SUBCUT ×2 (08:29→12:04)
[2021-04-14] MEDS: predniSONE 20 MG TABLET 40 MG PO (08:29)
[2021-04-14] MEDS: oxyCODONE HCl Immed Release 5 MG TABLET PO (09:04)
[2021-04-14] MEDS: Acetaminophen 325 MG TABLET 650 MG PO (09:04)
--- NOTE | 2021-04-14 09:23 | P.CDIC_ITS ---
CDI Concurrent Query Service Date: 04/14/21 Documentation Clarification: Please clarify if you are treating a proba ble/suspected/likely or confirmed: Sepsis, treated Sepsis, ruled out PLEASE DO NOT DELETE/MODIFY EXISTING CONTENT Additional information is needed in order to code to the highest accuracy and appropriate Severity of Illness (SOI). Please clarify the information noted below in your progress notes and discharge summary. Risk Factors/Clinical Indicators/Treatments 76 year old male admitted with right hand swelling, redness second and third fingers. WBC 14.2 LA 1.3 Blood culture negative T99, P 96, R 15, BP 127/72, SAT 99% Initially diagnosed with Sepsis, Cellulitis and treated with IV antibiotic. Per ID:not sure Cellulitis, stop antibiotic Check for gout. Uric acid elevated. CDS: Danelle Michaud RN Contact Number: [phone] Please Review the information above and exercise your independent professional judgment in responding to the query. If you concur, pleas document in the PROGRESS NOTES and DISCHARGE SUMMARY. If you do not agree with the query, please document in the query above. THIS QUERY IS PART OF THE PERMANENT MEDICAL RECORD
--- NOTE | 2021-04-14 11:02 | PM.DS ---
DS: Providers Provider Date of Service: 04/14/21 Date of admission: 04/11/21 15:43 Primary care physician: Miriam Gray MD Consults: 04/11/21 15:43 Consult to Orthopedics Routine Consulting Provider: Mica Baker Reason for consultation: right hand pain and swelling Has provider been notified: No 04/11/21 22:29 Consult to Infectious Diseases Routine Consulting Provider: Ledy York Reason for consultation: sepsis/cellulitis Has provider been notified: No DS: Diagnosis Discharge Diagnosis (1) Gout: Status: Acute (2) Sepsis: Status: Acute Problem details: Ruled Out (3) Cellulitis: Status: Acute Problem details: cellulitis DS: Medications Discharge Medications Home Medications: Home Medications Medication Instructions Recorded Confirmed atorvastatin 40 mg tablet 40 mg PO BEDTIME 10/29/20 04/11/21 cholecalciferol (vitamin D3) 50 50 mcg PO DAILY@1200 10/29/20 04/11/21 mcg (2,000 unit) capsule lisinopril 20 mg tablet 20 mg PO DAILY@1200 10/29/20 04/11/21 metoprolol succinate 25 mg 25 mg PO DAILY@1200 10/29/20 04/11/21 tablet,extended release 24 hr albuterol sulfate 90 mcg/actuation 2 puff INHALATION Q6H PRN 02/04/21 04/11/21 aerosol inhaler aspirin 81 mg tablet,delayed 81 mg PO DAILY 02/17/21 04/11/21 release Pulmicort Flexhaler 2 puff PO BID 04/11/21 04/11/21 Toudeyanira SoloStar U-300 Insulin 17 unit SUBCUT BEDTIME 04/11/21 04/11/21 potassium chloride 20 meq PO DAILY@1200 04/11/21 04/11/21 Previous Rx's Medication Instructions Recorded Humalog KwikPen Insulin 100 See Rx Instructions SUBCUT TID 30 02/04/21 unit/mL subcutaneous Days #30 ml NS exenatide microspheres 2 mg/0.85 2 mg SUBCUT QWEEK 30 Days #4.25 ml 02/04/21 mL subcutaneous auto-injector furosemide 40 mg tablet 80 mg PO BID #120 tab 03/14/21 prednisone See Taper PO DAILY #30 tab 04/14/21 DS: Summary Hospital Course Hospital Course: Patient presented with complaints of right hand swelling which was initially felt secondary to cellulitis. He met sepsis criteria and was given appropriate fluid bolus and antibiotics. However after not responding to antibiotics, his hand was reassessed and subsequently felt was secondary to gout. He was evaluated by both Infectious Disease and Orthopedics. He was subsequently initiated on prednisone with improvement in his symptoms. He will be discharged home on a short prednisone taper as follows 40 mg for 3 days with tapering by 10 mg every 3 days. Time Spent with Patient Time attestation: Total time spent providing and/or coordinating discharge services: Discharge coordination time: Greater than 30 minutes Quality: Stroke Does the patient have a stroke diagnosis?: No Physical Exam Vital Signs: Vital Signs: Last Vital Signs Temp 97.4 F 04/14/21 07:59 Pulse 83 04/14/21 07:59 Resp 18 04/14/21 07:59 BP 115/56 L 04/14/21 07:59 Pulse Ox 99 04/14/21 07:59 Body Mass Index 31.8 Const: Other: General - no acute distress, appears comfortable Cardiovascular - regular rate and rhythm, S1-S2 Lungs - normal respiratory effort, clear to auscultation bilaterally, no wheezing Abdomen - soft, nontender, no rebound or guarding Extremities - no edema bilaterally; RUE hand swelling / erythema improved; ROM improved Neuro - awake and alert, no focal deficits DS: Data Data Completed and Pending Labs on day of discharge: Laboratory Results - last 24 hr 04/13/21 04/13/21 04/13/21 11:06 11:14 15:59 WBC RBC Hgb Hct MCV MCH MCHC RDW Plt Count MPV Absolute Nucleated RBC Nucleated RBC % (auto) POC Glucose 298 H 258 H Vancomycin Trough 8.6 L 04/13/21 04/14/21 04/14/21 20:05 06:41 07:58 WBC 13.4 H RBC 3.82 L Hgb 10.7 L Hct 34.5 L MCV 90.3 MCH 28.0 MCHC 31.0 RDW 14.3 Plt Count 178 MPV 12.1 Absolute Nucleated RBC 0.000 Nucleated RBC % (auto) 0.0 POC Glucose 306 H 221 H Vancomycin Trough Preliminary micro results at discharge 04/11/21 11:14 Blood Culture - Preliminary Blood - Venous No growth after 48 hours. 04/11/21 11:05 Blood Culture - Preliminary Blood - Venous No growth after 48 hours. Discharge Plan Discharge Patient Disposition: Home Health Service Discharge Diagnosis: Gout Referrals: Miriam Gray MD [Primary Care Provider] - 1 Week Discharge Medications: New prednisone 10 mg tablet See Taper mg PO DAILY Qty: 30 RF: 0 Continued furosemide 40 mg tablet 80 mg PO BID Qty: 120 RF: 3 Toujeo SoloStar U-300 Insulin 300 unit/mL (1.5 mL) insulin pen 17 unit subcut BEDTIME RF: 0 potassium chloride 20 mEq tablet,ER particles/crystals 20 meq PO DAILY@1200 RF: 0 Pulmicort Flexhaler 90 mcg/actuation aerosol powdr breath activated 2 puff PO BID RF: 0 cholecalciferol (vitamin D3) 50 mcg (2,000 unit) capsule 50 mcg PO DAILY@1200 RF: 0 metoprolol succinate 25 mg tablet extended release 24 hr 25 mg PO DAILY@1200 RF: 0 atorvastatin 40 mg tablet 40 mg PO BEDTIME RF: 0 lisinopril 20 mg tablet 20 mg PO DAILY@1200 RF: 0 albuterol sulfate [Ventolin HFA] 90 mcg/actuation HFA aerosol inhaler 2 puff inhalation Q6H PRN (Reason: Shortness Of Breath) RF: 0 exenatide microspheres 2 mg/0.85 mL auto-injector 2 mg subcut QWEEK 30 Days Qty: 4.25 RF: 6 insulin lispro [Humalog KwikPen Insulin] 100 unit/mL insulin pen See Rx Instructions subcut TID 30 Days Qty: 30 RF: 6 aspirin [Adult Low Dose Aspirin] 81 mg tablet,delayed release (DR/EC) 81 mg PO DAILY RF: 0 Discharge Orders: Discharge Order (Routine); Ordered 04/14/21 Ordered By: Johnny Venegas Diet: advance to usual diet Activity on Discharge: As tolerated Stand Alone Forms: Patient Portal Discharge page Care Plan Goals: To stay healthy and out of the hospital. Health Concerns: Gout Plan of Treatment: Take Prednisone 40mg for 3 days, 30mg for 3 days, 20mg for 3 days, 10mg for 3 days, then stop Assessment: 76 yo M admitted for hand pain / redness initially thought to be cellulitis which was ruled out. Subsequently diagnosed with gout. Started in prednisone with improvement of his symptoms -- will be d/c home on a short prednisone taper.
[2021-04-14 11:40] LABS: Glucose, Whole Blood 319 mg/dL (60-115)
[2021-04-14 12:05] VITALS: BP 112/69; PULSE 86
[2021-04-14] MEDS: Cholecalciferol (Vitamin D3) 25 MCG TABLET 50 MCG PO (12:05)
[2021-04-14] MEDS: Metoprolol Succinate ER 25 MG TAB.ER.24H PO (12:05)
== END 2021-04-14 13:28 | disposition home health service (06) | DRG 603 ==
LOC: HO.ED 10:30 → HO.EDOVER 16:13 → HO.S3 16:37
PROVIDERS: Family Medicine; Internal Medicine; Nurse Practitioner Acute Care; Physician Assistant; Admitting Provider Physician Assistant Medical; Emergency Provider Emergency Medicine; PCP Family Medicine; Visit Provider Family Medicine
DX: L03.113 Cellulitis of right upper limb (principal); N17.9 Acute kidney failure, unspecified; I13.0 Hypertensive heart and chronic kidney disease with heart failure and stage 1 through stage 4 chronic kidney disease, or unspecified chronic kidney disease; I50.32 Chronic diastolic (congestive) heart failure; I25.10 Atherosclerotic heart disease of native coronary artery without angina pectoris; G47.33 Obstructive sleep apnea (adult) (pediatric); E11.65 Type 2 diabetes mellitus with hyperglycemia; M10.9 Gout, unspecified; E11.22 Type 2 diabetes mellitus with diabetic chronic kidney disease; N18.30 Chronic kidney disease, stage 3 unspecified; Z20.822 Contact with and (suspected) exposure to COVID-19; Z79.4 Long term (current) use of insulin; Z79.82 Long term (current) use of aspirin; Z79.899 Other long term (current) drug therapy
CPT/HCPCS: 36415; 73100; 73130; 80048; 80051; 80053; 80202; 82306; 82310; 82565; 82947; 83036; 83540; 83605; 83970; 84156; 84520; 84550; 85025; 85027; 85610; 85652; 85730; 86140; 87040; 87635; 94660; 96365; 96368; 99285; J1650; J2270; J2543; J3370

== ENCOUNTER → 2021-04-17 12:32 | Outpatient (BNVA) | payer MEDICARE, MEDICAID, SELFPAY | PROVIDERS: PCP Family Medicine; Visit Provider Internal Medicine | DX: I13.0 Hypertensive heart and chronic kidney disease with heart failure and stage 1 through stage 4 chronic kidney disease, or unspecified chronic kidney disease (principal); I50.32 Chronic diastolic (congestive) heart failure; N18.32 Chronic kidney disease, stage 3b; R00.0 Tachycardia, unspecified; G47.33 Obstructive sleep apnea (adult) (pediatric) | CPT/HCPCS: 99212 ==

== ENCOUNTER 2021-04-30 19:24 | Inpatient (IN) | payer MEDICARE, MEDICAID, SELFPAY ==
--- NOTE | 2021-04-30 | ECG_ITS ---
Test Reason : EDMA Blood Pressure : / mmHG Vent. Rate : 099 BPM Atrial Rate : 241 BPM P-R Int : 000 ms QRS Dur : 088 ms QT Int : 362 ms P-R-T Axes : 000 -43 117 degrees QTc Int : 464 ms Atrial fibrillation Left axis deviation Pulmonary disease pattern Nonspecific T wave abnormality Prolonged QT Abnormal ECG When compared with ECG of 29-DEC-2019 09:12, Atrial fibrillation has replaced Normal sinus rhythm Referred By: Generic ED Physician Electronically Signed By:ANNETTE GALLARDO MD
--- NOTE | ~2021-04-30 | XR_ITS ---
EXAMINATION: XR CHEST CLINICAL INFORMATION: Increased swelling/edema COMPARISON: Chest x-ray December 29, 2019 TECHNIQUE: 2 views of the chest were obtained. FINDINGS: Cardiac silhouette is normal in size. Atherosclerotic disease of the aortic arch. The lungs are adequately aerated. Mild prominence of central pulmonary vasculature without overt edema. No lobar consolidation. No pleural effusion or pneumothorax. Similar subcentimeter sclerotic focus within the left posterior fourth rib, statistically a bone island. XR/XR chest 2V IMPRESSION: Mild prominence of central pulmonary vasculature without overt edema.
[2021-04-30 20:45] VITALS: BP 126/79; PULSE 102; RESP 17; TEMP 37.2; O2SAT 99; BMI 32.5
[2021-04-30 21:55] LABS: MANUAL DIFF FLAG NO
[2021-04-30 21:59] LABS: Basophils Percent Auto 0.1 % (0-2); Eosinophils Absolute Auto 0.1 X10*3/uL (0.0-0.4); Eosinophils Percent Auto 0.7 % (0-4); Hematocrit 37.5 % (42-52); Hemoglobin 11.8 g/dl (14.0-18.0); Imm Gran Abs Auto 0.05 X10*3/uL (0.00-0.03); Imm Gran Pct Auto 0.4 % (0.0-0.4); Lymphocytes Absolute Auto 1.6 X10*3/uL (1.2-4.9); Lymphocytes Percent Auto 11.8 % (20-40); Mean Corpuscular HGB Conc 31.5 g/dl (31.0-36.0); Mean Corpuscular Hemoglobin 28.6 pg (27.0-33.0); Platelet Count 181 X10*3/uL (160-400); Red Blood Count 4.12 X10*6/uL (4.60-5.80); Red Cell Distribution Width 15.3 % (11.0-16.0); White Blood Count 13.8 X10*3/uL (4.8-10.8)
[2021-04-30 22:26] LABS: Anion Gap 14 (12-20); Blood Urea Nitrogen 58 mg/dL (9-16); Calcium 9.2 mg/dL (8.4-10.2); Carbon Dioxide 29 mmol/L (22-29); Chloride 100 mmol/L (96-108); Creatinine Clr Calc Pharmacy 31.9; Estimated Glomerular Filt Rate 34; Glucose Random 199 mg/dL (60-115); Potassium 4.3 mmol/L (3.3-5.1); Sodium 139 mmol/L (135-145)
[2021-04-30 22:30] LABS: B Type Natriuretic Peptide 606 pg/mL (<100)
[2021-05-01] VITALS (10 sets, daily range): BP systolic 101–142; BP diastolic 68–77; PULSE 95–115; RESP 16–18; TEMP 36.6–37.1; O2SAT 96–98; BMI 31.0
--- NOTE | 2021-05-01 01:31 | ED_ITS ---
HPI - SOB/Dyspnea General Chief Complaint: Extremity Problem Stated Complaint: SWOLLEN FEET Time Seen by Provider: 05/01/21 01:02 History of Present Illness HPI Narrative: 76-year-old male presented today with having mild palpitation. Increasing shortness of breath with exertion. Patient feel like he needs extra is pillows to sleep at night. Increased swelling to bilateral lower extremity. Patient from home. No history of blood clots in the past. Had an EKG done at patient's primary physician's office showed new onset AFib. Patient is sent in for further evaluation. No cough and no congestion or upper respiratory symptoms. Patient is from home. No chest pain. No diaphoresis. No new medication. No changes in diet. Related Data Home Medications Medication Instructions Recorded Confirmed atorvastatin 40 mg tablet 40 mg PO BEDTIME 10/29/20 04/17/21 cholecalciferol (vitamin D3) 50 50 mcg PO DAILY@1200 10/29/20 04/17/21 mcg (2,000 unit) capsule lisinopril 20 mg tablet 20 mg PO DAILY@1200 10/29/20 04/17/21 metoprolol succinate 25 mg 25 mg PO DAILY@1200 10/29/20 04/17/21 tablet,extended release 24 hr albuterol sulfate 90 mcg/actuation 2 puff INHALATION Q6H PRN 02/04/21 04/17/21 aerosol inhaler aspirin 81 mg tablet,delayed 81 mg PO DAILY 02/17/21 04/17/21 release Pulmicort Flexhaler 2 puff PO BID 04/11/21 04/17/21 Toviola Hallar U-300 Insulin 17 unit SUBCUT BEDTIME 04/11/21 04/17/21 potassium chloride 20 meq PO DAILY@1200 04/11/21 04/17/21 Previous Rx's Medication Instructions Recorded Humalog KwikPen Insulin 100 See Rx Instructions SUBCUT TID 30 02/04/21 unit/mL subcutaneous Days #30 ml NS exenatide microspheres 2 mg/0.85 2 mg SUBCUT QWEEK 30 Days #4.25 ml 02/04/21 mL subcutaneous auto-injector furosemide 40 mg tablet 80 mg PO BID #120 tab 03/14/21 prednisone See Taper PO DAILY #30 tab 04/14/21 Allergies Allergy/AdvReac Type Severity Reaction Status Date / Time No Known Allergies Allergy Verified 04/17/21 12:54 [No Known Allergies*] Review of Systems Review of Systems: Constitutional: No Weight loss, No Fever, No Chills, No Night Sweats, No Fatigue, No Malaise ENT/Mouth: No Hearing loss, No Ear Pain, No Nasal Congestion, No Sinus Pain, No Hoarseness, No sore throat, No Rhinorrhea, No Swallowing Difficulty Eyes: No Eye Pain, No Swelling, No Redness, No Foreign Body, No Discharge, No Vision Changes Cardiovascular: No Chest Pain, positive SOB, positive Dyspnea on Exertion, positive Orthopnea, positive Edema, No Palpitations Respiratory: No Cough, No Sputum, No Wheezing, No Smoke Exposure, No Dyspnea Gastrointestinal: No Nausea, No Vomiting, No Diarrhea, No Constipation, No abdominal Pain, No Hematochezia, No Melena Genitourinary: no irregular bleeding, No Dysuria, No Urinary Frequency, No Hematuria, No Urinary Incontinence, No Urgency, No Flank Pain, No Urinary Flow Changes, No Hesitancy Musculoskeletal: No joint pain, No Myalgias, No Joint Swelling Skin: No Skin Lesions, No rash Neuro: No Weakness, No Numbness, No Paresthesias, No Loss of Consciousness, No Dizziness, No Headache Psych: No Anxiety/Panic, No Depression, No SI/HI/AH/VH, No Social Issues, Heme/Lymph: No Bruising, No Bleeding,No Lymphadenopathy Endocrine: No Polyuria, No Polydipsia, No Temperature Intolerance [facility] Past Medical History Medical History CAD (coronary artery disease) CKD (chronic kidney disease) stage 3, GFR 30-59 ml/min Diabetes type 2, uncontrolled Diabetic polyneuropathy associated with type 2 diabetes mellitus Dyslipidemia Essential hypertension Heart failure with preserved ejection fraction 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 Obesity (BMI 30-39.9) SRINIVASA (obstructive sleep apnea) Right hand pain Surgical History Hx of cardiac catheterization Hx of colonoscopy Family History Family History Father Heart disease Diabetes mellitus Mother Diabetes mellitus Social History Social History Household Members: Spouse Housing: Condominium Do you presently have visiting nurse or other home services: No Alcohol intake: never Advance Directives: Yes Advance Directives on File: Yes Advance Directives Date on File: 04/11/21 service: No Current occupational status: unemployed Physical Exam Vital Signs: Vital Signs: Last Vital Signs Temp 99.0 F 04/30/21 20:45 Pulse 102 H 04/30/21 20:45 Resp 17 04/30/21 20:45 BP 126/79 04/30/21 20:45 Pulse Ox 99 04/30/21 20:45 Body Mass Index 32.5 Appearance: Alert. Oriented X3. No acute distress. Eyes: Pupils equal, round and reactive to light. ENT: Pharynx normal. Neck: Normal inspection. Neck supple. No lymph nodes noted. No crepitus CVS: Normal heart rate and rhythm. Pulses normal. Normal S1 and S2 Respiratory: No respiratory distress. Mild crackle at the bases about 1/3 up the lung field.. No Wheezing. No rales Abdomen: Soft and nontender. No rigidity. No distention. good BS x4 Skin: Skin warm and dry. Normal skin color. Normal skin turgor. Extremities: 2+ pitting edema bilateral lower extremity. Neurovascular intact to all extremities. No Lacerations. No Rash Neuro: Oriented X 3. No motor deficit. No sensory deficit. Moving all extermities. No slurred speech MDM - SOB/Dyspnea MDM Narrative Medical decision making narrative: Patient has new onset atrial fibrillation. BNP mildly elevated at approximately 600. This is higher than his baseline. Normally he is on 80 mg of Lasix twice a day. Given an additional dose of Lasix 80 mg IV x1. Patient also given nitroglycerin. Will place on a monitor. Troponin was added is still pending. Will require admission for further diuresi s. Will start patient on Lovenox as he has new onset atrial fibrillation and high Cam score being he has a history of hypertension age and diabetes. Case discussed with hospitalist team. Patient is to be admitted. In stable condition. Differential Diagnosis Differential diagnosis: Likely congestive heart failure Medical Records Attestation: I reviewed the patient's medical records. Lab Data Attestation: I reviewed the patient's lab results. Result diagrams: 04/30/21 21:51 04/30/21 21:51 Labs: Lab Results 04/30/21 04/30/21 04/30/21 Range/Units 21:51 21:51 21:51 WBC 13.8 H (4.8-10.8) X10*3/uL RBC 4.12 L (4.60-5.80) X10*6/uL Hgb 11.8 L (14.0-18.0) g/dl Hct 37.5 L (42-52) % MCV 91.0 (80-98) fL MCH 28.6 (27.0-33.0) pg MCHC 31.5 (31.0-36.0) g/dl RDW 15.3 (11.0-16.0) % Plt Count 181 (160-400) X10*3/uL MPV 11.0 (9.4-12.4) fL Immature Gran % (Auto) 0.4 (0.0-0.4) % Neut % (Auto) 80.0 H (45-73) % Lymph % (Auto) 11.8 L (20-40) % [place] % (Auto) 7.0 (2-11) % Eos % (Auto) 0.7 (0-4) % Baso % (Auto) 0.1 (0-2) % Lymph # (Auto) 1.6 (1.2-4.9) X10*3/uL [place] # (Auto) 1.0 (0.1-1.2) X10*3/uL Eos # (Auto) 0.1 (0.0-0.4) X10*3/uL Baso # (Auto) 0.0 (0.0-0.2) X10*3/uL Abs Immat Gran (auto) 0.05 H (0.00-0.03) X10*3/uL Absolute Neuts (auto) 11.0 H (2.0-8.3) X10*3/uL Absolute Nucleated RBC 0.000 (0.0-0.012) X10*3/uL Nucleated RBC % (auto) 0.0 (0.0-0.2) /100WBC Sodium 139 (135-145) mmol/L Potassium 4.3 (3.3-5.1) mmol/L Chloride 100 (96-108) mmol/L Carbon Dioxide 29 (22-29) mmol/L Anion Gap 14 (12-20) BUN 58 H (9-16) mg/dL Creatinine 1.94 H (0.5-1.4) mg/dL Estim Creat Clear Calc 31.9 Estimated GFR 34 Random Glucose 199 H (60-115) mg/dL Calcium 9.2 (8.4-10.2) mg/dL Troponin I High Sens 462.5 H* (<3.5-35.0) ng/L B-Natriuretic Peptide 606 H (<100) pg/mL Discharge Plan Discharge Clinical Impression: CHF (congestive heart failure) Patient Disposition: Admitted As Inpatient
[2021-05-01 01:52] LABS: Troponin-I High Sensitivity 462.5 ng/L (<3.5-35.0)
--- NOTE | 2021-05-01 02:41 | P.HPHOSP_ITS ---
History of Present Illness Date of Service: 05/01/21 <Levi Terrell MD - Last Filed: 05/04/21 19:35> Chief Complaint: Shortness of breath <Levi Terrell MD - Last Filed: 05/04/21 19:35> 76-year-old male with a past medical history of hypertension, hyperlipidemia, diabetes, coronary artery disease, CHF on Lasix, chronic kidney disease, gout presented to the hospital with a chief complaint of shortness of breath. Patient mentioned that over the past couple days he has been having shortness of breath and also noticed increased swelling in his legs. Mentions that he has been on Lasix at home and is been complaint with the Lasix. Home patient reports having increased shortness of breath when lying flat usually sleeps in the college. Denies any numbness tingling or chest pains. Denies any GI or symptoms. Review of all other systems is negative except mentioned above Patient reports that he went to the clinic where he was noted to have abnormal EKG and subsequently sent to the ER for further evaluation. ER course: Per ER team patient noted to have 2+ pitting edema common mildly short of breath, chest x-ray showed congestion, slightly troponin elevated at 400s; patient denied any chest pain; EKG was nonischemic but noted to be new onset AFib. Admitted to the hospital for further management. 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 Obesity (BMI 30-39.9) SRINIVASA (obstructive sleep apnea) Right hand pain <Levi Terrell MD - Last Filed: 05/04/21 19:35> Family History: Family History Father Heart disease Diabetes mellitus Mother Diabetes mellitus <Levi Terrell MD - Last Filed: 05/04/21 19:35> Surgical History: Surgical History Hx of cardiac catheterization Hx of colonoscopy <Levi Terrell MD - Last Filed: 05/04/21 19:35> Social History: Social History Household Members: Spouse Housing: Condominium Do you presently have visiting nurse or other home services: No Alcohol intake: never Patient Tobacco Use Status: Never used Tobacco e-Cigarette/Vaping Use: Never Used Use of substances other than those prescribed or required for medical reasons: No Currently Displaying Signs/Symptoms of Drug Intoxication Withdrawal: No Have you been hit, kicked, punched, or otherwise hurt by someone within the past year? If so, by whom?: No Do you feel safe in your current relationship?: No Is there a partner from a previous relationship who is making you feel unsafe now?: No Are you made to feel afraid or neglected: No Are you DNR?: No Advance Directives: Yes Advance Directives on File: Yes Advance Directives Date on File: 04/11/21 Do you have thoughts of harming others: None Do you have a plan to hurt others: No Plan Recently lost weight without trying: No Poor oral hygiene: No service: No Current occupational status: unemployed <Levi Terrell MD - Last Filed: 05/04/21 19:35> Meds Allergies/Adverse reactions: Allergies Allergy/AdvReac Type Severity Reaction Status Date / Time No Known Allergies Allergy Verified 04/17/21 12:54 [No Known Allergies*] <Levi Terrell MD - Last Filed: 05/04/21 19:35> Active Medications: Current Medications Generic Name Dose Route Start Last Admin Trade Name Freq PRN Reason Stop Dose Admin Acetaminophen 650 mg 05/01/21 02:04 Acetaminophen 325 Mg Tablet PO Q6H PRN Pain, Mild (Pain Scale 1-3) Furosemide 40 mg 05/01/21 08:00 Furosemide 40 Mg/4 Ml Vial IVPUSH BIDWM KIM Protocol Heparin Sodium (Porcine) 4,000 unit 05/01/21 02:02 Heparin Sodium,Porcine 5,000 Unit/Ml Vial IVPUSH 05/01/21 02:03 ONCE ONE Heparin Sodium (Porcine) 3,300 unit 05/01/21 02:02 Heparin Sodium,Porcine 5,000 Unit/Ml Vial 40 unit/kg (3300 unit) IVPUSH BOLUS PRN 40 unit/kg - Heparin Protocol Heparin Sodium (Porcine) 6,700 unit 05/01/21 02:02 Heparin Sodium,Porcine 5,000 Unit/Ml Vial 80 unit/kg (6700 unit) IVPUSH BOLUS PRN 80 unit/kg - Heparin Protocol Heparin Sodium/Sodium Chloride 25,000 unit in 250 mls @ 0 mls/hr 05/01/21 02:15 IVCONT .Q0M [facility] Protocol Per Protocol Dextrose/Sodium Chloride 1,000 mls @ 50 mls/hr 05/01/21 02:15 D51/2ns IVCONT .Q20H [facility] Insulin Human Lispro 0 unit 05/01/21 07:30 Insulin Lispro 100 Unit/Ml 3 Ml Vial SUBCUT QIDACHS [facility] Protocol Magnesium Hydroxide 30 ml 05/01/21 02:04 Milk Of Magnesia 30 Ml Oral.Susp PO DAILY PRN Constipation Nitroglycerin 0.4 mg 05/01/21 02:04 Nitroglycerin 0.4 Mg Tab.Subl SUBLINGUAL Q5M PRN Chest Pain Sodium Chloride 3 ml 05/01/21 08:00 0.9 % Sodium Chloride Flush 3 [facility] <Levi Terrell MD - Last Filed: 05/04/21 19:35> Home medications: Home Medications Medication Instructions Recorded Confirmed Last Taken Type atorvastatin 40 mg tablet 40 mg PO BEDTIME 10/29/20 05/01/21 04/10/21 History cholecalciferol (vitamin D3) 50 50 mcg PO DAILY@1200 10/29/20 05/01/21 04/10/21 History mcg (2,000 unit) capsule lisinopril 20 mg tablet 20 mg PO DAILY@1200 10/29/20 05/01/21 04/10/21 History metoprolol succinate 25 mg 25 mg PO DAILY@1200 10/29/20 05/01/21 04/10/21 History tablet,extended release 24 hr albuterol sulfate 90 mcg/actuation 2 puff INHALATION Q6H PRN 02/04/21 05/01/21 Unknown History aerosol inhaler aspirin 81 mg tablet,delayed 81 mg PO DAILY 02/17/21 05/01/21 Unknown History release Pulmicort Flexhaler 2 puff PO BID 04/11/21 05/01/21 Unknown History Endy Rm U-300 Insulin 15 unit SUBCUT BEDTIME 04/11/21 05/01/21 Unknown History potassium chloride 20 meq PO DAILY@1200 04/11/21 05/01/21 04/10/21 History <Levi Terrell MD - Last Filed: 05/04/21 19:35> Physical Exam Vital Signs and Narrative: Vital Signs: Last Vital Signs Temp 99.0 F 04/30/21 20:45 Pulse 102 H 04/30/21 20:45 Resp 17 04/30/21 20:45 BP 126/79 04/30/21 20:45 Pulse Ox 99 04/30/21 20:45 Body Mass Index 32.5 <Levi Terrell MD - Last Filed: 05/04/21 19:35> Gen: Appears be in no acute distress HEENT: NCAT, Moist mucosa. Pulmonary: Fine crackles at bases CVS: Normal S1-S2 Abdomen: BS+, Soft, Nontender Extremities: Warm well perfused; 2+ pitting edema Neuro: Alert and awake. Grossly nonfocal <Levi Terrell MD - Last Filed: 05/04/21 19:35> Results Labs CBC and Chem 7: : 05/02/21 05:34 05/04/21 10:37 <Levi Terrell MD - Last Filed: 05/04/21 19:35> Labs: Laboratory Results - last 24 hr 04/30/21 04/30/21 04/30/21 21:51 21:51 21:51 MCV 91.0 MCH 28.6 MCHC 31.5 RDW 15.3 Plt Count 181 MPV 11.0 Immature Gran % (Auto) 0.4 Neut % (Auto) 80.0 H Lymph % (Auto) 11.8 L [place] % (Auto) 7.0 Eos % (Auto) 0.7 Baso % (Auto) 0.1 Lymph # (Auto) 1.6 [place] # (Auto) 1.0 Eos # (Auto) 0.1 Baso # (Auto) 0.0 Abs Immat Gran (auto) 0.05 H Absolute Neuts (auto) 11.0 H Absolute Nucleated RBC 0.000 Nucleated RBC % (auto) 0.0 Anion Gap 14 Estim Creat Clear Calc 31.9 Estimated GFR 34 Random Glucose 199 H Calcium 9.2 Troponin I High Sens 462.5 H* B-Natriuretic Peptide 606 H <Levi Terrell MD - Last Filed: 05/04/21 19:35> Imaging Radiologist's Impressions: Impressions Chest X-Ray 04/30/21 21:10 IMPRESSION: Mild prominence of central pulmonary vasculature without overt edema. <Levi Terrell MD - Last Filed: 05/04/21 19:35> Assessment and Plan (1) New onset a-fib: Status: Acute <Levi Terrell MD - Last Filed: 05/04/21 19:35> 76-year-old male with a past medical history of hypertension, hyperlipidemia, diabetes, coronary artery disease, CHF, CKD, go out presented to the hospital with a chief complaint of shortness of breath/abnormal EKG. Noted to have new onset AFib and mild CHF. Admitted for further management. New onset AFib: Patient currently rate controlled. Patient is on beta-vasquez at home. Will continue for now. Patient has a very high chads Vasc score. Patient is started on the heparin drip. Elevated troponin: likely demand versus reduced given the patient denies any chest pain. EKG nonischemic. Spoke to Cardiology Dr. miles Mild CHF: Will continue the patient on Lasix 40 mg IV b.i.d.. Daily weights and I's and O's. Repeat echocardiogram. CKD: Patient's baseline creatinine is around 1.8 to2.0; Will continue to monitor while diuresing. Diabetes: Will keep the patient on insulin sliding scale. 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/hyperlipidemia: Continue home medications DVT prophylaxis: Patient on heparin drip Code status: Full code <Levi Terrell MD - Last Filed: 05/04/21 19:35>
--- NOTE | 2021-05-01 02:56 | PC.NURSE ---
PT MOVED TO ROOM #18, CHG INTO GOWN AND AWAITING FURTHER ORDERS. PT ON MONITOR. FAMILY AT BEDSIDE WITH PT.
[2021-05-01] MEDS: Furosemide 100 MG/10 ML VIAL 80 MG IVPUSH (03:16)
[2021-05-01] MEDS: Nitroglycerin 2 % Oint 1 GM Packet 0.5 INCH TRANSDERMA (03:16)
[2021-05-01] MEDS: Heparin Sodium,Porcine 5,000 UNIT/ML VIAL 4000 UNIT IVPUSH (03:18)
[2021-05-01 04:10] LABS: INTERNATIONAL NORM RATIO 1.1 (0.9-1.1); Prothrombin Time 13.5 SEC (10.8-13.0)
[2021-05-01 04:12] LABS: PTT Heparin Drip 29.9 SEC (53-77.9)
[2021-05-01] MEDS: Dextrose 5 % and 0.45 % NaCl 1,000 ML 50 ML IVCONT (04:13)
[2021-05-01 04:25] LABS: COVID-19 Test Negative (Negative); IDNOW Serial# 9DD0AD1C
--- NOTE | 2021-05-01 07:10 | PC.NURSE ---
HOSPITALIST AWARE BOLUS WAS GIVEN AT 0318 AND HEPARIN DRIP WAS NOT STARTED. HOSPITALIST DOES NOT WANT A REPEAT BOLUS GIVEN TO PT. HEPARIN DRIP BEING HUNG AT THIS TIME. REPORT GIVEN TO EUNICE JEAN.
[2021-05-01] MEDS: Heparin Sodium,Porcine/1/2NS 25,000 UNIT/250 ML IV.SOLN 10.02 UNIT IVCONT (07:21)
[2021-05-01 07:26] LABS: MANUAL DIFF FLAG NO
[2021-05-01 07:29] LABS: Basophils Percent Auto 0.2 % (0-2); Eosinophils Absolute Auto 0.2 X10*3/uL (0.0-0.4); Eosinophils Percent Auto 1.4 % (0-4); Hematocrit 36.2 % (42-52); Hemoglobin 11.2 g/dl (14.0-18.0); Imm Gran Abs Auto 0.07 X10*3/uL (0.00-0.03); Imm Gran Pct Auto 0.5 % (0.0-0.4); Lymphocytes Absolute Auto 1.7 X10*3/uL (1.2-4.9); Lymphocytes Percent Auto 12.5 % (20-40); Mean Corpuscular HGB Conc 30.9 g/dl (31.0-36.0); Mean Corpuscular Hemoglobin 28.1 pg (27.0-33.0); Mean Corpuscular Volume 90.7 fL (80-98); Mean Platelet Volume 11.5 fL (9.4-12.4); Monocytes Absolute Auto 1.1 X10*3/uL (0.1-1.2); Monocytes Percent Auto 7.9 % (2-11); Neutrophils Absolute Auto 10.5 X10*3/uL (2.0-8.3); Neutrophils Percent Auto 77.5 % (45-73); Platelet Count 177 X10*3/uL (160-400); Red Blood Count 3.99 X10*6/uL (4.60-5.80); Red Cell Distribution Width 15.2 % (11.0-16.0); White Blood Count 13.6 X10*3/uL (4.8-10.8)
--- NOTE | 2021-05-01 07:31 | PC.NURSE ---
Addendum entered by Juanita Shah 05/01/21 07:52: NOTICEABLE BILATERAL SWELLING ABOUT +[address] HIS LEGS. Original Note: pt alert and oriented, skin appropriate for ethnicity, pt reports midsternal chest pain 2/10, denies sob/dizziness/nausea heprin drip running at 12u/kg/h, vs stable, a-fib he 103
[2021-05-01 07:41] LABS: INTERNATIONAL NORM RATIO 1.1 (0.9-1.1)
[2021-05-01 07:48] LABS: Anion Gap 15 (12-20); Blood Urea Nitrogen 57 mg/dL (9-16); Calcium 8.8 mg/dL (8.4-10.2); Carbon Dioxide 28 mmol/L (22-29); Chloride 101 mmol/L (96-108); Creatinine Clr Calc Pharmacy 32.1; Estimated Glomerular Filt Rate 35; Glucose Random 262 mg/dL (60-115); Potassium 3.5 mmol/L (3.3-5.1); Sodium 140 mmol/L (135-145)
[2021-05-01] MEDS: 0.9 % Sodium Chloride Flush 3 ML SYRINGE IVFLUSH ×3 (07:51→20:52)
[2021-05-01 08:06] LABS: Glucose, Whole Blood 242 mg/dL (60-115)
[2021-05-01] MEDS: Furosemide 40 MG/4 ML VIAL IVPUSH ×2 (08:08→17:01)
--- NOTE | 2021-05-01 08:09 | PC.NURSE ---
emptied a urinal with 700ml of yellow urine
[2021-05-01 08:12] LABS: Troponin-I High Sensitivity 564.5 ng/L (<3.5-35.0)
--- NOTE | 2021-05-01 10:25 | PC.NURSE ---
pt resting in the stretcher, vs stable, dextrose/ns infusion stoped per hospitalist order
--- NOTE | 2021-05-01 11:17 | PC.NURSE ---
ximena thomas at bedside talking to pt with the educational interpreter
--- NOTE | 2021-05-01 14:30 | PC.NURSE ---
called the pharmacy to verify the heparin drip bolus because it was put in this morning under the wrong weight. pharmacy is calling hospitalist to verify the bolus dose with the new weight. according to pharmacy hospitalist is going d/c the heparin drip
--- NOTE | 2021-05-01 14:40 | PC.NURSE ---
called c to give report awaiting call back
--- NOTE | 2021-05-01 14:45 | PC.NURSE ---
pt denies chest pain, resting comfortably, a-fib, hr 113 at this time 120/74. [place] [facility] [place]
--- NOTE | 2021-05-01 15:13 | PC.NURSE ---
report given to imc rn
[2021-05-01 15:38] LABS: Glucose, Whole Blood 160 mg/dL (60-115)
[2021-05-01] MEDS: Apixaban 5 MG TABLET PO (15:45)
[2021-05-01] MEDS: Metoprolol Tartrate 25 MG TABLET PO ×2 (15:45→20:51)
--- NOTE | 2021-05-01 16:23 | HO.PM.IMPN ---
Subjective Subjective Date of Service: 05/01/21 <GOLDIE Garcia - Last Filed: 05/01/21 16:41> 05/01/21 <Lexx Fisher MD - Last Filed: 05/01/21 17:30> Interval History: seen and examined this morning follow up for afib, chf reports improvement in shortness of breath and leg edema denies chest pain, palpitations, dizziness <GOLDIE Garcia - Last Filed: 05/01/21 16:41> Review of Systems Review of Systems: Yes all other systems are reviewed and are negative <GOLDIE Garcia - Last Filed: 05/01/21 16:41> Constitutional Constitutional: Denies chills and Denies fever(s) <GOLDIE Garcia - Last Filed: 05/01/21 16:41> Cardiovascular Cardiovascular: Denies chest pain <GOLDIE Garcia - Last Filed: 05/01/21 16:41> Respiratory Respiratory: Denies cough <GOLDIE Garcia - Last Filed: 05/01/21 16:41> Gastrointestinal Gastrointestinal: Denies abdominal pain <GOLDIE Garcia - Last Filed: 05/01/21 16:41> Physical Exam Vital Signs: Vital Signs: Last Vital Signs Temp 98 F 05/01/21 15:28 Pulse 115 H 05/01/21 15:28 Resp 18 05/01/21 15:28 BP 142/73 H 05/01/21 15:28 Pulse Ox 98 05/01/21 15:28 Body Mass Index 31.0 <GOLDIE Garcia - Last Filed: 05/01/21 16:41> Const: Nutritional Appearance: well nourished <GOLDIE Garcia - Last Filed: 05/01/21 16:41> Orientation/consciousness: patient oriented x3 <GOLDIE Garcia - Last Filed: 05/01/21 16:41> HENMT: Head: Yes normocephalic and Yes atraumatic <GOLDIE Garcia - Last Filed: 05/01/21 16:41> Eyes: Sclerae: sclerae normal <GOLDIE Garcia - Last Filed: 05/01/21 16:41> Chest: Chest palpation & inspection: normal inspection of the chest <GOLDIE Garcia Last Filed: 05/01/21 16:41> Resp: Effort & Inspection: normal respiratory effort and no respiratory distress <GOLDIE Garcia Last Filed: 05/01/21 16:41> Cardio: Rate: regular rate <GOLDIE Garcia Last Filed: 05/01/21 16:41> Rhythm: abnormal rhythm irregularly irregular <GOLDIE Garcia Last Filed: 05/01/21 16:41> GI: Palpation (GI): Soft to palpation and nontender <GOLDIE Garcia Last Filed: 05/01/21 16:41> Neuro: General: patient oriented x3 <GOLDIE Garcia Last Filed: 05/01/21 16:41> Cranial nerves: Yes CN's II-XII intact bilaterally and Yes Bilaterally intact EOM present <GOLDIE Garcia Last Filed: 05/01/21 16:41> Objective Data Current Medications Generic Name Dose Route Start Last Admin Trade Name Freq PRN Reason Stop Dose Admin Acetaminophen 650 mg 05/01/21 02:04 Acetaminophen 325 Mg Tablet PO Q6H PRN Pain, Mild (Pain Scale 1-3) Albuterol Sulfate 2 puff 05/01/21 15:06 Albuterol Sulfate 90 Mcg 8 Gm Inhaler INHALE Q6H PRN Shortness Of Breath Apixaban 5 mg 05/01/21 16:00 05/01/21 15:45 Apixaban 5 Mg Tablet PO 5 mg Q12H KIM Administration Atorvastatin Calcium 40 mg 05/01/21 21:00 Atorvastatin Calcium 40 Mg Tablet PO BEDTIME KIM Furosemide 40 mg 05/01/21 08:00 05/01/21 08:08 Furosemide 40 Mg/4 Ml Vial IVPUSH 40 mg BIDWM KIM Administration Protocol Insulin Glargine 12 unit 05/01/21 21:00 Insulin Glargine,Hum.Rec.Anlog 100 Unit/Ml 10 Ml Vial SUBCUT BEDTIME KIM Insulin Human Lispro 0 unit 05/01/21 07:30 05/01/21 13:24 Insulin Lispro 100 Unit/Ml 3 Ml Vial SUBCUT Not Given QIDACHS [facility] Protocol Lisinopril 20 mg 05/02/21 12:00 Lisinopril 20 Mg Tablet PO DAILY@1200 [facility] Protocol Magnesium Hydroxide 30 ml 05/01/21 02:04 Milk Of Magnesia 30 Ml Oral.Susp PO DAILY PRN Constipation Metoprolol Tartrate 25 mg 05/01/21 16:00 05/01/21 15:45 Metoprolol Tartrate 25 Mg Tablet PO 25 mg Q6H [facility] Administration Protocol Nitroglycerin 0.4 mg 05/01/21 02:04 Nitroglycerin 0.4 Mg Tab.Subl SUBLINGUAL Q5M PRN Chest Pain Sodium Chloride 3 ml 05/01/21 08:00 05/01/21 15:45 0.9 % Sodium Chloride Flush 3 Ml Syringe IVFLUSH 3 ml QSHIFT [facility] Administration Vitamin D 50 mcg 05/02/21 12:00 Cholecalciferol (Vitamin D3) 25 Mcg Tablet PO DAILY@1200 [facility] <GOLDIE Garcia - Last Filed: 05/01/21 16:41> Labs CBC & Chem 7: : 05/01/21 07:11 05/01/21 07:11 <GOLDIE Garcia - Last Filed: 05/01/21 16:41> Assessment and Plan (1) CHF (congestive heart failure): Status: Acute <GOLDIE Garcia - Last Filed: 05/01/21 16:41> (2) New onset a-fib: Status: Acute <GOLDIE Garcia - Last Filed: 05/01/21 16:41> Assessment and Plan: This is a 76-year-old male with a past medical history of hypertension, hyperlipidemia, diabetes, coronary artery disease, CHF, CKD, gout presented to the hospital with a chief complaint of shortness of breath/abnormal EKG. Noted to have new onset AFib and mild CHF. Admitted for further management. New onset AFib: HR around 100. -metoprolol q6h, monitor heart rate. -Chadsvasc score 4, initially started on heparin drip, change to Eliquis -echo done in march -cardiology consult Elevated troponin: likely demand related, trops elevated but flat. no chest pain -cardiology consult acute on chronic CHF presented with dyspnea, orthopnea, PND. Likely precipitated by AFib Echo from 04/11 with EF 40%, diastolic dysfunction -continue Lasix 40 mg IV b.i.d.. -Daily weights and I's and O's. -follow bnp CKD at baseline -Follow BMP Diabetes: -continue lantus (converted from toujeo), SSI 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 -continue lisinpril, metoprolol HLD -continue statin SRINIVASA -cpap DVT prophylaxis: Eliquis Code status: Full code attending: Dr. martino <GOLDIE Garcia - Last Filed: 05/01/21 16:41> saw and examined the patient independently and discussed finding and management with PA and I agree with above, except if stated otherwise. <Lexx Fisher MD - Last Filed: 05/01/21 17:30>
[2021-05-01] MEDS: Insulin Lispro 100 UNIT/ML 3 ML VIAL SUBCUT ×2 (16:40→20:51)
--- NOTE | 2021-05-01 16:40 | P.CONCA_ITS ---
History of Present Illness History of Present Illness Date of Service: 05/01/21 Requesting physician: Levi Terrell Consult reason: atrial fibrillation and congestive heart failure Chief complaint: CHF; New afib Narrative: However was requested to see Jonathan in cardiology consultation today for decompensated congestive heart failure. He was recently seen in the office by Dr. Dudley after hospitalization with gout. He was doing well, however the last 2 days he has been having increasing shortness of breath, leg swelling and orthopnea. He therefore came to the hospital. He was noted to be in decompensated congestive heart failure also noted to have new onset atrial fibrillation. No prior history of atrial fibrillation, however there is mention of paroxysmal atrial fibrillation on prior testing of echocardiogram as a Holter monitor. However is not on oral anticoagulation therapy as outpatient. He was started initially on IV heparin and then subsequently switched to oral anticoagulation with 5 mg b.i.d.. He has been getting Lasix 40 mg IV b.i.d.. He says he feels better, his shortness of breath is improved. Leg edema is improved. He has prior history of systolic heart failure with LVEF of 40%, nonobstructive CAD by cardiac catheterization 2018 therefore nonischemic cardiomyopathy. He has grade 2 diastolic dysfunction. He has very sensitive to diuretic therapy leading to lightheadedness and syncopal episode with excessive diuresis. However he also has easy decompensation with reduced diuretic dosing. He also has history of hypertension, diabetes, chronic kidney disease. Takes all his medications regularly. No excessive salt intake. He denies any palpitations, lightheadedness, syncope. Review of Systems Constitutional: Constitutional: Reports no additional constitutional complaints Cardiovascular: Cardiovascular: Denies chest pain, Reports leg edema, Denies lightheadedness, Denies Loss of Consciousness, Denies palpitations, Reports dyspnea on exertion and Reports orthopnea Respiratory: Respiratory: Reports no additional respiratory complaints and Reports dyspnea on exertion Gastrointestinal: Gastrointestinal: Reports no additional gastrointestinal complaints Genitourinary: Genitourinary: Reports no additional male genitourinary complaints Musculoskeletal: Musculoskeletal: Reports no additional musculoskeletal complaints Neurologic: Reports system reviewed and no additional complaints, except as documented Psychiatric: Psychiatric: Reports no additional psychiatric complaints Endocrine: Endocrine: Reports no additional endocrine complaints and Denies palpitations Hematologic/Lymphatic: Hematologic/Lymphatic: Reports no additional hematologic/lymphatic complaints PMFSH Past Medical History Medical History CAD (coronary artery disease) CKD (chronic kidney disease) stage 3, GFR 30-59 ml/min Diabetes type 2, uncontrolled Diabetic polyneuropathy associated with type 2 diabetes mellitus Dyslipidemia Essential hypertension Heart failure with preserved ejection fraction 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 Obesity (BMI 30-39.9) SRINIVASA (obstructive sleep apnea) Right hand pain Family History Family History Father Heart disease Diabetes mellitus Mother Diabetes mellitus Surgical History Surgical History Hx of cardiac catheterization Hx of colonoscopy Social History Social History Household Members: Spouse Housing: Condominium Do you presently have visiting nurse or other home services: No Alcohol intake: never Currently Displaying Signs/Symptoms of Drug Intoxication Withdrawal: No Advance Directives: Yes Advance Directives on File: Yes Advance Directives Date on File: 04/11/21 Do you have thoughts of harming others: None Do you have a plan to hurt others: No Plan service: No Current occupational status: unemployed Meds Allergies Allergy/AdvReac Type Severity Reaction Status Date / Time No Known Allergies Allergy Verified 04/17/21 12:54 [No Known Allergies*] Active Medications: Current Medications Generic Name Dose Route Start Last Admin Trade Name Freq PRN Reason Stop Dose Admin Acetaminophen 650 mg 05/01/21 02:04 Acetaminophen 325 Mg Tablet PO Q6H PRN Pain, Mild (Pain Scale 1-3) Albuterol Sulfate 2 puff 05/01/21 15:06 Albuterol Sulfate 90 Mcg 8 Gm Inhaler INHALE Q6H PRN Shortness Of Breath Apixaban 5 mg 05/01/21 16:00 05/01/21 15:45 Apixaban 5 Mg Tablet PO 5 mg Q12H KIM Administration Atorvastatin Calcium 40 mg 05/01/21 21:00 Atorvastatin Calcium 40 Mg Tablet PO BEDTIME KIM Furosemide 40 mg 05/01/21 08:00 05/01/21 08:08 Furosemide 40 Mg/4 Ml Vial IVPUSH 40 mg BIDWM KIM Administration Protocol Insulin Glargine 12 unit 05/01/21 21:00 Insulin Glargine,Hum.Rec.Anlog 100 Unit/Ml 10 Ml Vial SUBCUT BEDTIME [facility] Insulin Human Lispro 0 unit 05/01/21 07:30 05/01/21 13:24 Insulin Lispro 100 Unit/Ml 3 Ml Vial SUBCUT Not Given QIDACHS [facility] Protocol Lisinopril 20 mg 05/02/21 12:00 Lisinopril 20 Mg Tablet PO DAILY@1200 [facility] Protocol Magnesium Hydroxide 30 ml 05/01/21 02:04 Milk Of Magnesia 30 Ml Oral.Susp PO DAILY PRN Constipation Metoprolol Tartrate 25 mg 05/01/21 16:00 05/01/21 15:45 Metoprolol Tartrate 25 Mg Tablet PO 25 mg Q6H [facility] Administration Protocol Nitroglycerin 0.4 mg 05/01/21 02:04 Nitroglycerin 0.4 Mg Tab.Subl SUBLINGUAL Q5M PRN Chest Pain Sodium Chloride 3 ml 05/01/21 08:00 05/01/21 15:45 0.9 % Sodium Chloride Flush 3 Ml Syringe IVFLUSH 3 ml QSHIFT [facility] Administration Vitamin D 50 mcg 05/02/21 12:00 Cholecalciferol (Vitamin D3) 25 Mcg Tablet PO DAILY@1200 [facility] Home Medications Medication Instructions Recorded Confirmed Last Taken Type atorvastatin 40 mg tablet 40 mg PO BEDTIME 10/29/20 05/01/21 04/10/21 History cholecalciferol (vitamin D3) 50 50 mcg PO DAILY@1200 10/29/20 05/01/21 04/10/21 History mcg (2,000 unit) capsule lisinopril 20 mg tablet 20 mg PO DAILY@1200 10/29/20 05/01/21 04/10/21 History metoprolol succinate 25 mg 25 mg PO DAILY@1200 10/29/20 05/01/21 04/10/21 History tablet,extended release 24 hr albuterol sulfate 90 mcg/actuation 2 puff INHALATION Q6H PRN 02/04/21 05/01/21 Unknown History aerosol inhaler aspirin 81 mg tablet,delayed 81 mg PO DAILY 02/17/21 05/01/21 Unknown History release Pulmicort Flexhaler 2 puff PO BID 04/11/21 05/01/21 Unknown History Toviola Hallar U-300 Insulin 15 unit SUBCUT BEDTIME 04/11/21 05/01/21 Unknown History potassium chloride 20 meq PO DAILY@1200 04/11/21 05/01/21 04/10/21 History Physical Exam Vital Signs: Vital Signs: Last Vital Signs Temp 98 F 05/01/21 15:28 Pulse 115 H 05/01/21 15:28 Resp 18 05/01/21 15:28 BP 142/73 H 05/01/21 15:28 Pulse Ox 98 05/01/21 15:28 Body Mass Index 31.0 Const: General: cooperative, comfortable, no acute distress, alert and awake Nutritional Appearance: obese Orientation/consciousness: patient oriented x3 HENMT: Head: Yes normocephalic and Yes atraumatic Neck: Neck: Yes trachea midline, Yes supple and Yes JVD Carotids: no bruits Resp: Effort & Inspection: normal respiratory effort Auscultation: rales on the right at the base and no wheezes Cardio: Jugular venous distension: JVD Rhythm: abnormal rhythm irregularly irregular Heart sounds: S1 normal heart sound present and S2 normal heart sound present GI: Inspection: Yes obesity Auscultation: normal bowel sounds Skin: General skin exam: no rashes or lesions noted Neuro: General: patient oriented x3 and no focal motor deficits Extrem: General: No clubbing, No cyanosis and Yes edema Psych: Appearance: grossly normal Results Labs and Meds Result diagrams: 05/01/21 07:11 05/01/21 07:11 Lab results: Laboratory Results - last 24 hr 04/30/21 04/30/21 04/30/21 21:51 21:51 21:51 WBC 13.8 H RBC 4.12 L Hgb 11.8 L Hct 37.5 L MCV 91.0 MCH 28.6 MCHC 31.5 RDW 15.3 Plt Count 181 MPV 11.0 Immature Gran % (Auto) 0.4 Neut % (Auto) 80.0 H Lymph % (Auto) 11.8 L Delta % (Auto) 7.0 Eos % (Auto) 0.7 Baso % (Auto) 0.1 Lymph # (Auto) 1.6 Delta # (Auto) 1.0 Eos # (Auto) 0.1 Baso # (Auto) 0.0 Abs Immat Gran (auto) 0.05 H Absolute Neuts (auto) 11.0 H Absolute Nucleated RBC 0.000 Nucleated RBC % (auto) 0.0 PT INR PTT (Heparin Protocol) Sodium 139 Potassium 4.3 Chloride 100 Carbon Dioxide 29 Anion Gap 14 BUN 58 H Creatinine 1.94 H Estim Creat Clear Calc 31.9 Estimated GFR 34 POC Glucose Random Glucose 199 H Calcium 9.2 Troponin I High Sens 462.5 H* B-Natriuretic Peptide 606 H COVID-19 ([facility]) COVID-19 Clin Com 05/01/21 05/01/21 05/01/21 03:37 03:37 07:10 WBC RBC Hgb Hct MCV MCH MCHC RDW Plt Count MPV Immature Gran % (Auto) Neut % (Auto) Lymph % (Auto) Delta % (Auto) Eos % (Auto) Baso % (Auto) Lymph # (Auto) Delta # (Auto) Eos # (Auto) Baso # (Auto) Abs Immat Gran (auto) Absolute Neuts (auto) Absolute Nucleated RBC Nucleated RBC % (auto) PT 13.5 H INR 1.1 PTT (Heparin Protocol) 29.9 L Sodium Potassium Chloride Carbon Dioxide Anion Gap BUN Creatinine Estim Creat Clear Calc Estimated GFR POC Glucose Random Glucose Calcium Troponin I High Sens 564.5 H* B-Natriuretic Peptide COVID-19 ([facility]ATY) Negative COVID-19 Clin Com See Note 05/01/21 05/01/21 05/01/21 07:11 07:11 07:11 WBC 13.6 H RBC 3.99 L Hgb 11.2 L Hct 36.2 L MCV 90.7 MCH 28.1 MCHC 30.9 L RDW 15.2 Plt Count 177 MPV 11.5 Immature Gran % (Auto) 0.5 H Neut % (Auto) 77.5 H Lymph % (Auto) 12.5 L Delta % (Auto) 7.9 Eos % (Auto) 1.4 Baso % (Auto) 0.2 Lymph # (Auto) 1.7 Delta # (Auto) 1.1 Eos # (Auto) 0.2 Baso # (Auto) 0.0 Abs Immat Gran (auto) 0.07 H Absolute Neuts (auto) 10.5 H Absolute Nucleated RBC 0.000 Nucleated RBC % (auto) 0.0 PT 13.0 INR 1.1 PTT (Heparin Protocol) Sodium 140 Potassium 3.5 Chloride 101 Carbon Dioxide 28 Anion Gap 15 BUN 57 H Creatinine 1.88 H Estim Creat Clear Calc 32.1 Estimated GFR 35 POC Glucose Random Glucose 262 H Calcium 8.8 Troponin I High Sens B-Natriuretic Peptide COVID-19 ([facility]) COVID-19 Clin Com 05/01/21 05/01/21 08:02 15:35 WBC RBC Hgb Hct MCV MCH MCHC RDW Plt Count MPV Immature Gran % (Auto) Neut % (Auto) Lymph % (Auto) Delta % (Auto) Eos % (Auto) Baso % (Auto) Lymph # (Auto) Delta # (Auto) Eos # (Auto) Baso # (Auto) Abs Immat Gran (auto) Absolute Neuts (auto) Absolute Nucleated RBC Nucleated RBC % (auto) PT INR PTT (Heparin Protocol) Sodium Potassium Chloride Carbon Dioxide Anion Gap BUN Creatinine Estim Creat Clear Calc Estimated GFR POC Glucose 242 H 160 H Random Glucose Calcium Troponin I High Sens B-Natriuretic Peptide COVID-19 ([facility]) COVID-19 Clin Com shows atrial fibrillation with Imaging Radiologist's impression: Impressions Chest X-Ray 04/30/21 21:10 IMPRESSION: Mild prominence of central pulmonary vasculature without overt edema. Assessment and Plan (1) New onset a-fib: Status: Acute New onset atrial fibrillation is elderly gentleman causing decompensated congestive heart failure, see below. Consideration for cardiac amyloidosis given his heart failure as well as atrial fibrillation as well as marked sensitivity to volume. This can be performed as outpatient. However I think he will benefit with rhythm control approach. Given the uncertain duration of atrial fibrillation, will start him on oral anticoagulation therapy with Eliquis with high risk for stroke with multiple risk factors. Perform ISAÍAS guided cardioversion tomorrow. This was explained to him with help of silverer. He shows understand agree. Explain the risks of ISAÍAS as well as cardioversion. Will try to perform them tomorrow. May require antiarrhythmic drug therapy based on response to cardioversion. Continue CPAP therapy. Will aggressively pursue rhythm control approach.. (2) CHF (congestive heart failure): Status: Acute Decompensated congestive heart failure related to new onset atrial fibrillation with loss of AV synchrony. Continue diuresis. Appears to be fluid overloaded. Continue current neurohormonal modulation with lisinopril and metoprolol therapy. His renal function appears stable will add Aldactone to his regimen. May also consider addition of Jardiance to his regimen. Strict intake and output chart. Trend BMP and BNP. Will follow the patient. Procedures Date of Service Date of Service: 05/01/21
[2021-05-01 19:46] LABS: Glucose, Whole Blood 260 mg/dL (60-115)
[2021-05-01] MEDS: Atorvastatin Calcium 40 MG TABLET PO (20:51)
[2021-05-01] MEDS: Insulin Glargine,Hum.rec.anlog 100 UNIT/ML 10 ML VIAL 12 UNIT SUBCUT (20:52)
[2021-05-02] VITALS (22 sets, daily range): BP systolic 67–131; BP diastolic 32–82; PULSE 56–116; RESP 12–96; TEMP 36.3–37.2; O2SAT 96–100; BMI 30.9
[2021-05-02] MEDS: Apixaban 5 MG TABLET PO ×2 (04:29→15:23)
[2021-05-02] MEDS: Metoprolol Tartrate 25 MG TABLET PO ×3 (04:29→21:46)
[2021-05-02 07:03] LABS: Hematocrit 35.2 % (42-52); Hemoglobin 10.8 g/dl (14.0-18.0); Mean Corpuscular HGB Conc 30.7 g/dl (31.0-36.0); Mean Corpuscular Hemoglobin 27.8 pg (27.0-33.0); Mean Corpuscular Volume 90.5 fL (80-98); Mean Platelet Volume 11.8 fL (9.4-12.4); Platelet Count 169 X10*3/uL (160-400); Red Blood Count 3.89 X10*6/uL (4.60-5.80); Red Cell Distribution Width 15.3 % (11.0-16.0); White Blood Count 10.7 X10*3/uL (4.8-10.8)
[2021-05-02 07:11] LABS: B Type Natriuretic Peptide 716 pg/mL (<100)
[2021-05-02 07:18] LABS: Cholesterol 129 mg/dL; HDL Cholesterol 36 mg/dL; LDL Cholesterol Calculated 78 mg/dl; Triglycerides 79 mg/dL
[2021-05-02 07:19] LABS: Glucose, Whole Blood 81 mg/dL (60-115)
[2021-05-02 07:33] LABS: Anion Gap 12 (12-20); Blood Urea Nitrogen 47 mg/dL (9-16); Calcium 8.4 mg/dL (8.4-10.2); Carbon Dioxide 32 mmol/L (22-29); Chloride 104 mmol/L (96-108); Creatinine Clr Calc Pharmacy 38.6; Estimated Glomerular Filt Rate 44; Glucose Random 80 mg/dL (60-115); Potassium 3.3 mmol/L (3.3-5.1); Sodium 145 mmol/L (135-145)
[2021-05-02] MEDS: Furosemide 40 MG/4 ML VIAL IVPUSH ×2 (08:54→16:35)
[2021-05-02] MEDS: 0.9 % Sodium Chloride Flush 3 ML SYRINGE IVFLUSH ×3 (08:55→21:46)
[2021-05-02 10:55] LABS: Glucose, Whole Blood 94 mg/dL (60-115)
--- NOTE | 2021-05-02 11:00 | P.PNIM_ITS ---
Subjective Subjective Date of Service: 05/02/21 <GOLDIE Garcia - Last Filed: 05/02/21 11:09> 05/02/21 <Lexx Fisher MD - Last Filed: 05/02/21 17:43> Interval History: Seen and examined this morning, follow-up for new onset atrial fibrillation and CHF Ongoing dyspnea, orthopnea Denies chest pain, palpitations, shortness of breath at rest Plan for cardioversion today <GOLDIE Garcia - Last Filed: 05/02/21 11:09> Review of Systems Review of Systems: Yes all other systems are reviewed and are negative <GOLDIE Garcia - Last Filed: 05/02/21 11:09> Constitutional Constitutional: Denies chills and Denies fever(s) <GOLDIE Garcia - Last Filed: 05/02/21 11:09> Cardiovascular Cardiovascular: Denies chest pain <GOLDIE Garcia - Last Filed: 05/02/21 11:09> Respiratory Respiratory: Denies cough <GOLDIE Garcia - Last Filed: 05/02/21 11:09> Gastrointestinal Gastrointestinal: Denies abdominal pain <GOLDIE Garcia - Last Filed: 05/02/21 11:09> Physical Exam Vital Signs: Vital Signs: Last Vital Signs Temp 98.1 F 05/02/21 07:23 Pulse 116 H 05/02/21 08:54 Resp 20 05/02/21 07:23 BP 119/70 05/02/21 07:23 Pulse Ox 97 05/02/21 07:23 Body Mass Index 30.9 <GOLDIE Garcia - Last Filed: 05/02/21 11:09> Const: General: comfortable, no acute distress, alert and awake <GOLDIE Garcia Last Filed: 05/02/21 11:09> Nutritional Appearance: well nourished <GOLDIE Garcia - Last Filed: 05/02/21 11:09> Orientation/consciousness: patient oriented x3 <GOLDIE Garcia - Last Filed: 05/02/21 11:09> HENMT: Head: Yes normocephalic and Yes atraumatic <GOLDIE Garcia - Last Filed: 05/02/21 11:09> Eyes: Sclerae: sclerae normal <GOLDIE Garcia - Last Filed: 05/02/21 11:09> Chest: Chest palpation & inspection: normal inspection of the chest <GOLDIE Garcia Last Filed: 05/02/21 11:09> Resp: Effort & Inspection: normal respiratory effort and no respiratory distress <GOLDIE Garcia - Last Filed: 05/02/21 11:09> Auscultation: clear to auscultation bilaterally <GOLDIE Garcia - Last Filed: 05/02/21 11:09> Cardio: Jugular venous distension: JVD <GOLDIE Garcia - Last Filed: 05/02/21 11:09> Rate: tachycardic <GOLDIE Garcia - Last Filed: 05/02/21 11:09> Rhythm: abnormal rhythm <GOLDIE Garcia - Last Filed: 05/02/21 11:09> GI: Palpation (GI): Soft to palpation and nontender <GOLDIE Garcia - Last Filed: 05/02/21 11:09> Neuro: General: patient oriented x3 <GOLDIE Garcia - Last Filed: 05/02/21 11:09> Cranial nerves: Yes CN's II-XII intact bilaterally and Yes Bilaterally intact EOM present <GOLDIE Garcia - Last Filed: 05/02/21 11:09> Extrem: Other: b/l leg edema <GOLDIE Garcia - Last Filed: 05/02/21 11:09> Objective Data Current Medications Generic Name Dose Route Start Last Admin Trade Name Freq PRN Reason Stop Dose Admin Acetaminophen 650 mg 05/01/21 02:04 Acetaminophen 325 Mg Tablet PO Q6H PRN Pain, Mild (Pain Scale 1-3) Albuterol Sulfate 2 puff 05/01/21 15:06 Albuterol Sulfate 90 Mcg 8 Gm Inhaler INHALE Q6H PRN Shortness Of Breath Apixaban 5 mg 05/01/21 16:00 05/02/21 04:29 Apixaban 5 Mg Tablet PO 5 mg Q12H KIM Administration Atorvastatin Calcium 40 mg 05/01/21 21:00 05/01/21 20:51 Atorvastatin Calcium 40 Mg Tablet PO 40 mg BEDTIME KIM Administration Furosemide 40 mg 05/01/21 08:00 05/02/21 08:54 Furosemide 40 Mg/4 Ml Vial IVPUSH 40 mg BIDWM KIM Administration Protocol Insulin Glargine 12 unit 05/01/21 21:00 05/01/21 20:52 Insulin Glargine,Hum.Rec.Anlog 100 Unit/Ml 10 Ml Vial SUBCUT 12 unit BEDTIME KIM Administration Insulin Human Lispro 0 unit 05/01/21 07:30 05/02/21 07:22 Insulin Lispro 100 Unit/Ml 3 Ml Vial SUBCUT Not Given QIDACHS [facility] Protocol Lisinopril 20 mg 05/02/21 12:00 Lisinopril 20 Mg Tablet PO DAILY@1200 KIM Protocol Magnesium Hydroxide 30 ml 05/01/21 02:04 Milk Of Magnesia 30 Ml Oral.Susp PO DAILY PRN Constipation Metoprolol Tartrate 25 mg 05/01/21 16:00 05/02/21 08:54 Metoprolol Tartrate 25 Mg Tablet PO 25 mg Q6H [facility] Administration Protocol Nitroglycerin 0.4 mg 05/01/21 02:04 Nitroglycerin 0.4 Mg Tab.Subl SUBLINGUAL Q5M PRN Chest Pain Sodium Chloride 3 ml 05/01/21 08:00 05/02/21 08:55 0.9 % Sodium Chloride Flush 3 Ml Syringe IVFLUSH 3 ml QSHIFT [facility] Administration Vitamin D 50 mcg 05/02/21 12:00 Cholecalciferol (Vitamin D3) 25 Mcg Tablet PO DAILY@1200 KIM <GOLDIE Garcia - Last Filed: 05/02/21 11:09> Labs CBC & Chem 7: : 05/02/21 05:34 05/02/21 05:34 <GOLDIE Garcia - Last Filed: 05/02/21 11:09> Assessment and Plan (1) CHF (congestive heart failure): Status: Acute <GOLDIE Garcia Last Filed: 05/02/21 11:09> (2) New onset a-fib: Status: Acute <GOLDIE Garcia - Last Filed: 05/02/21 11:09> Assessment and Plan: This is a 76-year-old male with a past medical history of hypertension, hyperlipidemia, diabetes, coronary artery disease, CHF, CKD, gout presented to the hospital with a chief complaint of shortness of breath/abnormal EKG. Noted to have new onset AFib and mild CHF. Admitted for further management. New onset AFib: HR 1-teens Seen by Cardiology, plan for CV today -metoprolol q6h, monitor heart rate. -Chadsvasc score 4, initially started on heparin drip, changed to Eliquis -echo done in march, hold off on repeat Elevated troponin: likely demand related, trops elevated but flat. no chest pain -cardiology following acute on chronic combined systolic and diastolic heart failure presented with dyspnea, orthopnea, PND. Likely precipitated by AFib Echo from 04/11 with EF 40%, grade 2 diastolic dysfunction BNP trending up, although net negative 2.5L thus far -continue Lasix 40 mg IV b.i.d.. -Daily weights and I's and O's. -follow bnp CKD at baseline -Follow BMP Diabetes: -continue lantus (converted from toujeo), SSI 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 Blood pressure under adequate control -continue lisinpril, metoprolol HLD -continue statin SRINIVASA -cpap DVT prophylaxis: Eliquis Code status: Full code attending: Dr. martino <GOLDIE Garcia - Last Filed: 05/02/21 11:09> I saw the patient and discussed finding, mangement, and disposition with PA and I agree with above, except if otherwise stated. <Lexx Fisher MD - Last Filed: 05/02/21 17:43>
--- NOTE | 2021-05-02 12:08 | MHC.SHP ---
Pre-Procedural Eval Section A The patient is an INPATIENT: Yes Changes since office visit: Yes Patient answered all questions Section B Chief Complaint: CHF; New afib Allergies: Allergies Allergy/AdvReac Type Severity Reaction Status Date / Time No Known Allergies Allergy Verified 04/17/21 12:54 [No Known Allergies*] Plan I have reviewed the history and physical and performed a pertinent physical examination on my patient. No changes have occurred unless specified.
--- NOTE | 2021-05-02 12:23 | P.CONAN_ITS ---
[facility] Active Problems Active Problems: All Active Problems (Updated 05/01/21 @ 02:43 by Levi wheat MD) New onset a-fib (Acute) CHF (congestive heart failure) (Acute) Sepsis (Acute) Gout (Acute) Right hand pain (Acute) Essential hypertension (Acute) Sinus tachycardia (Acute) Chronic heart failure with preserved ejection fraction (HFpEF) (Acute) SRINIVASA (obstructive sleep apnea) (Acute) CAD (coronary artery disease) (Acute) Heart failure with preserved ejection fraction (Acute) CKD (chronic kidney disease) stage 3, GFR 30-59 ml/min (Acute) Obesity (BMI 30-39.9) (Acute) 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 (Acute) Dyslipidemia (Acute) Diabetic polyneuropathy associated with type 2 diabetes mellitus (Acute) FDC (current) use of insulin (Acute) Past Medical History Medical History CAD (coronary artery disease) CKD (chronic kidney disease) stage 3, GFR 30-59 ml/min Diabetes type 2, uncontrolled Diabetic polyneuropathy associated with type 2 diabetes mellitus Dyslipidemia Essential hypertension Heart failure with preserved ejection fraction 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 Obesity (BMI 30-39.9) SRINIVASA (obstructive sleep apnea) Right hand pain Family History Family History Father Heart disease Diabetes mellitus Mother Diabetes mellitus Surgical History Surgical History Hx of cardiac catheterization Hx of colonoscopy Social History Social History Household Members: Spouse Housing: Condominium Do you presently have visiting nurse or other home services: No Alcohol intake: never Patient Tobacco Use Status: Never used Tobacco e-Cigarette/Vaping Use: Never Used Use of substances other than those prescribed or required for medical reasons: No Currently Displaying Signs/Symptoms of Drug Intoxication Withdrawal: No Have you been hit, kicked, punched, or otherwise hurt by someone within the past year? If so, by whom?: No Do you feel safe in your current relationship?: No Is there a partner from a previous relationship who is making you feel unsafe now?: No Are you made to feel afraid or neglected: No Are you DNR?: No Advance Directives: Yes Advance Directives on File: Yes Advance Directives Date on File: 04/11/21 Do you have thoughts of harming others: None Do you have a plan to hurt others: No Plan Recently lost weight without trying: No Poor oral hygiene: No service: No Current occupational status: unemployed Meds Allergies Allergy/AdvReac Type Severity Reaction Status Date / Time No Known Allergies Allergy Verified 04/17/21 12:54 [No Known Allergies*] Active Medications: Current Medications Generic Name Dose Route Start Last Admin Trade Name Freq PRN Reason Stop Dose Admin Acetaminophen 650 mg 05/01/21 02:04 Acetaminophen 325 Mg Tablet PO Q6H PRN Pain, Mild (Pain Scale 1-3) Albuterol Sulfate 2 puff 05/01/21 15:06 Albuterol Sulfate 90 Mcg 8 Gm Inhaler INHALE Q6H PRN Shortness Of Breath Apixaban 5 mg 05/01/21 16:00 05/02/21 04:29 Apixaban 5 Mg Tablet PO 5 mg Q12H KIM Administration Atorvastatin Calcium 40 mg 05/01/21 21:00 05/01/21 20:51 Atorvastatin Calcium 40 Mg Tablet PO 40 mg BEDTIME KIM Administration Furosemide 40 mg 05/01/21 08:00 05/02/21 08:54 Furosemide 40 Mg/4 Ml Vial IVPUSH 40 mg BIDWM KIM Administration Protocol Insulin Glargine 12 unit 05/01/21 21:00 05/01/21 20:52 Insulin Glargine,Hum.Rec.Anlog 100 Unit/Ml 10 Ml Vial SUBCUT 12 unit BEDTIME KIM Administration Insulin Human Lispro 0 unit 05/01/21 07:30 05/02/21 11:46 Insulin Lispro 100 Unit/Ml 3 Ml Vial SUBCUT Not Given QIDACHS [facility] Protocol Lisinopril 20 mg 05/02/21 12:00 Lisinopril 20 Mg Tablet PO DAILY@1200 [facility] Protocol Magnesium Hydroxide 30 ml 05/01/21 02:04 Milk Of Magnesia 30 Ml Oral.Susp PO DAILY PRN Constipation Metoprolol Tartrate 25 mg 05/01/21 16:00 05/02/21 08:54 Metoprolol Tartrate 25 Mg Tablet PO 25 mg Q6H KIM Administration Protocol Sodium Chloride 3 ml 05/01/21 08:00 05/02/21 08:55 0.9 % Sodium Chloride Flush 3 Ml Syringe IVFLUSH 3 ml QSHIFT [facility] Administration Vitamin D 50 mcg 05/02/21 12:00 Cholecalciferol (Vitamin D3) 25 Mcg Tablet PO DAILY@1200 [facility] Home Medications Medication Instructions Recorded Confirmed Last Taken Type atorvastatin 40 mg tablet 40 mg PO BEDTIME 10/29/20 05/01/21 04/10/21 History cholecalciferol (vitamin D3) 50 50 mcg PO DAILY@1200 10/29/20 05/01/21 04/10/21 History mcg (2,000 unit) capsule lisinopril 20 mg tablet 20 mg PO DAILY@1200 10/29/20 05/01/21 04/10/21 History metoprolol succinate 25 mg 25 mg PO DAILY@1200 10/29/20 05/01/21 04/10/21 History tablet,extended release 24 hr albuterol sulfate 90 mcg/actuation 2 puff INHALATION Q6H PRN 02/04/21 05/01/21 Unknown History aerosol inhaler aspirin 81 mg tablet,delayed 81 mg PO DAILY 02/17/21 05/01/21 Unknown History release Pulmicort Flexhaler 2 puff PO BID 04/11/21 05/01/21 Unknown History Toujeo SoloStar U-300 Insulin 15 unit SUBCUT BEDTIME 04/11/21 05/01/21 Unknown History potassium chloride 20 meq PO DAILY@1200 04/11/21 05/01/21 04/10/21 History Exam Exam Date and Time: May 02, 2021 1223 Height,Weight and Vital Signs: Height 5 ft 3 in Weight 79.1 kg Last Vital Signs Temp 98.2 F 05/02/21 11:06 Pulse 112 H 05/02/21 11:06 Resp 22 H 05/02/21 11:06 BP 120/76 05/02/21 11:06 Pulse Ox 98 05/02/21 11:06 Pertinent Lab Results Pertinent Lab Results: Laboratory Tests 04/30/21 04/30/21 04/30/21 21:51 21:51 21:51 WBC 13.8 H RBC 4.12 L Hgb 11.8 L Hct 37.5 L MCV 91.0 MCH 28.6 MCHC 31.5 RDW 15.3 Plt Count 181 MPV 11.0 Immature Gran % (Auto) 0.4 Neut % (Auto) 80.0 H Lymph % (Auto) 11.8 L [place] % (Auto) 7.0 Eos % (Auto) 0.7 Baso % (Auto) 0.1 Lymph # (Auto) 1.6 [place] # (Auto) 1.0 Eos # (Auto) 0.1 Baso # (Auto) 0.0 Abs Immat Gran (auto) 0.05 H Absolute Neuts (auto) 11.0 H Absolute Nucleated RBC 0.000 Nucleated RBC % (auto) 0.0 PT INR PTT (Heparin Protocol) Sodium 139 Potassium 4.3 Chloride 100 Carbon Dioxide 29 Anion Gap 14 BUN 58 H Creatinine 1.94 H Estim Creat Clear Calc 31.9 Estimated GFR 34 POC Glucose Random Glucose 199 H Calcium 9.2 Troponin I High Sens 462.5 H* B-Natriuretic Peptide 606 H Triglycerides Cholesterol LDL Cholesterol, Calc HDL Cholesterol COVID-19 (KATY) COVID-19 [facility] 05/01/21 05/01/21 05/01/21 03:37 03:37 07:10 WBC RBC Hgb Hct MCV MCH MCHC RDW Plt Count MPV Immature Gran % (Auto) Neut % (Auto) Lymph % (Auto) [place] % (Auto) Eos % (Auto) Baso % (Auto) Lymph # (Auto) [place] # (Auto) Eos # (Auto) Baso # (Auto) Abs Immat Gran (auto) Absolute Neuts (auto) Absolute Nucleated RBC Nucleated RBC % (auto) PT 13.5 H INR 1.1 PTT (Heparin Protocol) 29.9 L Sodium Potassium Chloride Carbon Dioxide Anion Gap BUN Creatinine Estim Creat Clear Calc Estimated GFR POC Glucose Random Glucose Calcium Troponin I High Sens 564.5 H* B-Natriuretic Peptide Triglycerides Cholesterol LDL Cholesterol, Calc HDL Cholesterol COVID-19 (KATY) Negative COVID-19 Clin Com See Note 05/01/21 05/01/21 05/01/21 07:11 07:11 07:11 WBC 13.6 H RBC 3.99 L Hgb 11.2 L Hct 36.2 L MCV 90.7 MCH 28.1 MCHC 30.9 L RDW 15.2 Plt Count 177 MPV 11.5 Immature Gran % (Auto) 0.5 H Neut % (Auto) 77.5 H Lymph % (Auto) 12.5 L [place] % (Auto) 7.9 Eos % (Auto) 1.4 Baso % (Auto) 0.2 Lymph # (Auto) 1.7 [place] # (Auto) 1.1 Eos # (Auto) 0.2 Baso # (Auto) 0.0 Abs Immat Gran (auto) 0.07 H Absolute Neuts (auto) 10.5 H Absolute Nucleated RBC 0.000 Nucleated RBC % (auto) 0.0 PT 13.0 INR 1.1 PTT (Heparin Protocol) Sodium 140 Potassium 3.5 Chloride 101 Carbon Dioxide 28 Anion Gap 15 BUN 57 H Creatinine 1.88 H Estim Creat Clear Calc 32.1 Estimated GFR 35 POC Glucose Random Glucose 262 H Calcium 8.8 Troponin I High Sens B-Natriuretic Peptide Triglycerides Cholesterol LDL Cholesterol, Calc HDL Cholesterol COVID-19 (KATY) COVID-19 [employer]ge 05/01/21 05/01/21 05/01/21 08:02 15:35 19:41 WBC RBC Hgb Hct MCV MCH MCHC RDW Plt Count MPV Immature Gran % (Auto) Neut % (Auto) Lymph % (Auto) [place] % (Auto) Eos % (Auto) Baso % (Auto) Lymph # (Auto) [place] # (Auto) Eos # (Auto) Baso # (Auto) Abs Immat Gran (auto) Absolute Neuts (auto) Absolute Nucleated RBC Nucleated RBC % (auto) PT INR PTT (Heparin Protocol) Sodium Potassium Chloride Carbon Dioxide Anion Gap BUN Creatinine Estim Creat Clear Calc Estimated GFR POC Glucose 242 H 160 H 260 H Random Glucose Calcium Troponin I High Sens B-Natriuretic Peptide Triglycerides Cholesterol LDL Cholesterol, Calc HDL Cholesterol COVID-19 (KATY) COVID-19 [employer] 05/02/21 05/02/21 05/02/21 05:34 05:34 05:34 WBC 10.7 RBC 3.89 L Hgb 10.8 L Hct 35.2 L MCV 90.5 MCH 27.8 MCHC 30.7 L RDW 15.3 Plt Count 169 MPV 11.8 Immature Gran % (Auto) Neut % (Auto) Lymph % (Auto) [place] % (Auto) Eos % (Auto) Baso % (Auto) Lymph # (Auto) [place] # (Auto) Eos # (Auto) Baso # (Auto) Abs Immat Gran (auto) Absolute Neuts (auto) Absolute Nucleated RBC 0.000 Nucleated RBC % (auto) 0.0 PT INR PTT (Heparin Protocol) Sodium 145 Potassium 3.3 Chloride 104 Carbon Dioxide 32 H Anion Gap 12 BUN 47 H Creatinine 1.56 H Estim Creat Clear Calc 38.6 Estimated GFR 44 POC Glucose Random Glucose 80 D Calcium 8.4 Troponin I High Sens B-Natriuretic Peptide Triglycerides 79 Cholesterol 129 LDL Cholesterol, Calc 78 HDL Cholesterol 36 COVID-19 (KATY) COVID-19 Clin Com 05/02/21 05/02/21 05/02/21 05:34 07:09 10:52 WBC RBC Hgb Hct MCV MCH MCHC RDW Plt Count MPV Immature Gran % (Auto) Neut % (Auto) Lymph % (Auto) [place] % (Auto) Eos % (Auto) Baso % (Auto) Lymph # (Auto) [place] # (Auto) Eos # (Auto) Baso # (Auto) Abs Immat Gran (auto) Absolute Neuts (auto) Absolute Nucleated RBC Nucleated RBC % (auto) PT INR PTT (Heparin Protocol) Sodium Potassium Chloride Carbon Dioxide Anion Gap BUN Creatinine Estim Creat Clear Calc Estimated GFR POC Glucose 81 94 Random Glucose Calcium Troponin I High Sens B-Natriuretic Peptide 716 H Triglycerides Cholesterol LDL Cholesterol, Calc HDL Cholesterol COVID-19 (KATY) COVID-19 Clin Com Airway Mallampati Class: III TM Dist: >3cm Neck ROM: Limited Loose/Missing/Broken Teeth: No Heart: irreg irreg rhythm Lungs: CTA Assessment and Plan Assessment Anesthesia Assessment: Anesthesia Plan Discussed and Chart Reviewed Final Anesthetic Review NPO: Yes ASA Class: III Final Preanesthetic Review: Meds/Allgs Chart Reviewed, Consent Obtained/Reviewed and Anes Risks/Benef Reviewed Patient Risk: Intermediate Procedure Risk: Intermediate Anesthetic Plan Anesthetic Plan: MAC: Disposition: Standard PACU
--- NOTE | 2021-05-02 13:13 | P.PNCAR_ITS ---
Cardioversion Procedure Note Cardioversion Date of Procedure: 05/02/2021 Ordering Provider: Myself Performing Provider: Myself Indication for Procedure: New onset atrial fibrillation with heart failure Pre-Op Diagnosis: Same Post-Op Diagnosis: Sinus rhythm Performed with Transesophageal Echo: Yes ISAÍAS findings (if ISAÍAS Performed): LV systolic dysfunction with LVEF of 30-35% with thick ventricle. Biatrial enlargement, right greater than left. Dense smoke formation seen in left atrium and left atrial appendage with reduced left atrial appendage velocity without any organized thrombus. History: See history and physical Consent: Verbal and Written consent was obtained with help of engraved roller inspector from the patient before starting and confirming oral anticoagulation. The patient was made aware of the risk of procedure including benefits, alternatives. Procedure: After consent obtained, cardioversion pads were attached and the patient was sedated by the anesthesia team. Once adequate sedation achieved, patient was delivered 200 joules of biphasic synchronized energy in anteroposterior configuration. Complications: Brief hypotension during the procedure which was quickly corrected by anesthesia team. Impression: Successful conversion to sinus rhythm Recommendations: 1. 12 lead EKG 2. Continue Eliquis 3. Will start amiodarone 200 mg b.i.d. for rhythm control for 1 month followed by 200 mg daily. 4. Continue IV diuresis.
--- NOTE | 2021-05-02 13:16 | ECG_ITS ---
Test Reason : S/P CARDIOVERSION Blood Pressure : / mmHG Vent. Rate : 076 BPM Atrial Rate : 076 BPM P-R Int : 240 ms QRS Dur : 092 ms QT Int : 424 ms P-R-T Axes : 028 -27 129 degrees QTc Int : 477 ms Sinus rhythm with 1st degree A-V block Low voltage QRS Nonspecific T wave abnormality Prolonged QT Abnormal ECG When compared with ECG of 30-APR-2021 23:13, Sinus rhythm has replaced Atrial fibrillation Referred By: Eric Richardson Electronically Signed By:ERIC RICHARDSON MD
--- NOTE | 2021-05-02 13:18 | PM.PNCARD ---
Subjective Subjective Date of Service: 05/02/21 Principal diagnosis: CHF, atrial fibrillation Interval history: Patient still remains in atrial fibrillation with borderline rate control. Diuresed well, total of 2.5 L negative balance so far. Symptoms have improved. Review of Systems Constitutional: Reports no additional constitutional complaints Cardiovascular: Denies chest pain, Denies lightheadedness, Denies palpitations and Reports dyspnea on exertion Respiratory: Reports no additional respiratory complaints and Reports dyspnea on exertion Gastrointestinal: Reports no additional gastrointestinal complaints Reports system reviewed and no additional complaints, except as documented Endocrine: Reports no additional endocrine complaints and Denies palpitations Physical Exam Vital Signs: Last Vital Signs Temp 98.2 F 05/02/21 11:06 Pulse 112 H 05/02/21 11:06 Resp 22 H 05/02/21 11:06 BP 120/76 05/02/21 11:06 Pulse Ox 98 05/02/21 11:06 Body Mass Index 30.9 Const General: cooperative and comfortable Nutritional Appearance: obese Orientation/consciousness: patient oriented x3 Neck Neck: Yes trachea midline, Yes supple and Yes JVD Resp Effort & Inspection: normal respiratory effort Auscultation: no rales and diminished lung sounds Cardio Jugular venous distension: JVD Rate: regular rate Rhythm: regular rhythm Heart sounds: S1 normal heart sound present and S2 normal heart sound present GI Auscultation: normal bowel sounds Skin General skin exam: no rashes or lesions noted Neuro General: patient oriented x3 Extrem Right upper extremity: edema; no cyanosis Results Labs and Meds Result diagrams: 05/02/21 05:34 05/02/21 05:34 Lab results: Laboratory Results - last 24 hr 05/01/21 05/01/21 05/02/21 15:35 19:41 05:34 WBC RBC Hgb Hct MCV MCH MCHC RDW Plt Count MPV Absolute Nucleated RBC Nucleated RBC % (auto) Sodium Potassium Chloride Carbon Dioxide Anion Gap BUN Creatinine Estim Creat Clear Calc Estimated GFR POC Glucose 160 H 260 H Random Glucose Calcium B-Natriuretic Peptide Triglycerides 79 Cholesterol 129 LDL Cholesterol, Calc 78 HDL Cholesterol 36 05/02/21 05/02/21 05/02/21 05:34 05:34 05:34 WBC 10.7 RBC 3.89 L Hgb 10.8 L Hct 35.2 L MCV 90.5 MCH 27.8 MCHC 30.7 L RDW 15.3 Plt Count 169 MPV 11.8 Absolute Nucleated RBC 0.000 Nucleated RBC % (auto) 0.0 Sodium 145 Potassium 3.3 Chloride 104 Carbon Dioxide 32 H Anion Gap 12 BUN 47 H Creatinine 1.56 H Estim Creat Clear Calc 38.6 Estimated GFR 44 POC Glucose Random Glucose 80 D Calcium 8.4 B-Natriuretic Peptide 716 H Triglycerides Cholesterol LDL Cholesterol, Calc HDL Cholesterol 05/02/21 05/02/21 07:09 10:52 WBC RBC Hgb Hct MCV MCH MCHC RDW Plt Count MPV Absolute Nucleated RBC Nucleated RBC % (auto) Sodium Potassium Chloride Carbon Dioxide Anion Gap BUN Creatinine Estim Creat Clear Calc Estimated GFR POC Glucose 81 94 Random Glucose Calcium B-Natriuretic Peptide Triglycerides Cholesterol LDL Cholesterol, Calc HDL Cholesterol Progress Note: A&P Assessment and plan (1) New onset a-fib: Status: Acute Assessment and Plan: Atrial fibrillation status post cardioversion. Converted to sinus rhythm. Reported that he is back in atrial tachycardia atrial fibrillation again. Biatrial enlargement. Will start him on IV amiodarone if he is back in atrial fibrillation by confirmed EKG. And try to perform cardioversion again tomorrow if possible otherwise bring him back as outpatient. Continue full oral anticoagulation with Eliquis. Rhythm control approach will definitely help with his heart failure syndrome. Discontinue aspirin as there is no indication for dual therapy at this point in time. LV systolic dysfunction with atrial fibrillation with thick ventricle is suggestive of possibly amyloidosis and this will need to be worked up. (2) CHF (congestive heart failure): Status: Acute Assessment and Plan: CHF, this decompensation episode due to recurrent atrial fibrillation. This is due to loss of AV synchrony. Management as above to try to manage rhythm control as much as possible. Continue IV diuresis. Strict intake and output chart. Continue remainder of the neurohormonal modulation. Renal function is improved with diuresis. Continue strict intake and output chart. Trend BMP and BNP. Will follow with the patient. Fall Risk Details Current Medications: Current Medications Generic Name Dose Route Start Last Admin Trade Name Freq PRN Reason Stop Dose Admin Acetaminophen 650 mg 05/01/21 02:04 Acetaminophen 325 Mg Tablet PO Q6H PRN Pain, Mild (Pain Scale 1-3) Albuterol Sulfate 2 puff 05/01/21 15:06 Albuterol Sulfate 90 Mcg 8 Gm Inhaler INHALE Q6H PRN Shortness Of Breath Amiodarone HCl 200 mg 05/02/21 13:20 Amiodarone Hcl 200 Mg Tablet PO BID KIM Apixaban 5 mg 05/01/21 16:00 05/02/21 04:29 Apixaban 5 Mg Tablet PO 5 mg Q12H KIM Administration Atorvastatin Calcium 40 mg 05/01/21 21:00 05/01/21 20:51 Atorvastatin Calcium 40 Mg Tablet PO 40 mg BEDTIME KIM Administration Furosemide 40 mg 05/01/21 08:00 05/02/21 08:54 Furosemide 40 Mg/4 Ml Vial IVPUSH 40 mg BIDWM [facility] Administration Protocol Insulin Glargine 12 unit 05/01/21 21:00 05/01/21 20:52 Insulin Glargine,Hum.Rec.Anlog 100 Unit/Ml 10 Ml Vial SUBCUT 12 unit BEDTIME [facility] Administration Insulin Human Lispro 0 unit 05/01/21 07:30 05/02/21 11:46 Insulin Lispro 100 Unit/Ml 3 Ml Vial SUBCUT Not Given QIDACHS [facility] Protocol Lisinopril 20 mg 05/02/21 12:00 Lisinopril 20 Mg Tablet PO DAILY@1200 [facility] Protocol Magnesium Hydroxide 30 ml 05/01/21 02:04 Milk Of Magnesia 30 Ml Oral.Susp PO DAILY PRN Constipation Sodium Chloride 3 ml 05/01/21 08:00 05/02/21 08:55 0.9 % Sodium Chloride Flush 3 Ml Syringe IVFLUSH 3 ml QSHIFT [facility] Administration Vitamin D 50 mcg 05/02/21 12:00 Cholecalciferol (Vitamin D3) 25 Mcg Tablet PO DAILY@1200 KIM Time Spent With Patient Time: Total time spent is greater than 50% in coordination of care (as documented) at patient's floor/unit and/or counseling patient: Time with patient: 25 - 35 minutes Procedures Date of Service Date of Service: 05/02/21
[2021-05-02] MEDS: Cholecalciferol (Vitamin D3) 25 MCG TABLET 50 MCG PO (15:23)
[2021-05-02] MEDS: Amiodarone HCL 200 MG TABLET PO ×2 (15:48→21:45)
[2021-05-02 16:27] LABS: Glucose, Whole Blood 164 mg/dL (60-115)
[2021-05-02] MEDS: Insulin Lispro 100 UNIT/ML 3 ML VIAL SUBCUT ×2 (16:34→21:44)
--- NOTE | 2021-05-02 16:49 | CA_ITS ---
Transesophageal Echocardiogram Patient (Last, First, Middle): Jonathan Neal A Gender: Male Date of : 1945 Age: 76 Procedure Date: 05/02/2021 Procedure Type: Transesophageal Echocardiogram Location: [facility] [place] Height: 160.02 cm Weight: 78.93 kg BSA: 1.82 m2 Heart Rate: bpm BP: 131 / 74 mmHg Literacy Education Professor: ZIYAD Kirk MD: Eric Richardson MD Director Of Vendor Management: Eric Richardson MD Symptoms: Pre cardioversion Conclusion: ??? 1. Moderate LV systolic dysfunction with moderate LV wall thickness 2. Moderate biatrial enlargement, With dense smoke formation seen within left atrial appendage 3. No intracardiac masses, thrombi, vegetations 4. Mild mitral regurgitation 5. No interatrial shunting 6. Trivial pericardial effusion Conclusion Based upon above finding patient went on to have synchronized cardioversion performed, dictated separately. Findings Procedure Information Consent was obtained prior to the procedure. Pre ISAÍAS oral cavity was checked and revealed no overcrowding. The adult 3D probe was passed with no difficulty. Left Ventricle Normal left ventricular cavity size. There is moderately increased left ventricular wall thickness. The left ventricular systolic function is moderately decreased. The visually estimated ejection fraction is between 35 40%. There is moderate global hypokinesis. Diastolic function is indeterminate on the basis of available data. Right Ventricle Mildly increased right ventricular cavity size. There is mild to moderately decreased right ventricular systolic function. There is mildly increased right ventricular wall thickness. Atria The left atrium is moderately dilated. There is lipomatous hypertrophy of the interatrial septum. There is no evidence of interatrial shunt. Left atrium was identified in multiple views. There are no clots noted within the left atrial cavity. There are no masses noted in left atrial cavity. The left atrial appendage was identified in multiple views. There is dense smoke formation seen within the left atrium and left atrial appendage. The left atrial appendage ejection velocity is reduced. The left upper, right upper and right lower pulmonary vein drain normally into the left atrium. The right atrium is moderately dilated. There is no clots or masses seen in the right atrium. The right atrial appendage is identified with reduced ejection velocity. There are no clots seen within the right atrial appendage. the IVC and SVC drain normally into the right atrium. Aortic Valve Normal aortic valve structure and function. There is normal aortic valve cusp separation. There is no aortic valve stenosis. There is no evidence of a mass on the aortic valve. There is trace (trivial) aortic valve regurgitation. Mitral Valve There is mild anterior and posterior mitral leaflet thickening. There is no mitral valve prolapse. There is mild mitral valve regurgitation. There is no mitral valve stenosis. There is no systolic anterior motion of the mitral valve. There is no mass noted on the mitral valve. Pulmonic Valve The pulmonic valve is normal. There is no thickening of the pulmonic valve. There is no mass noted on the pulmonic valve. There is trace pulmonic valve regurgitation. Tricuspid Valve Normal tricuspid valve structure. There is mild to moderate tricuspid valve regurgitation. There is no evidence of a mass on the tricuspid valve. Great Vessels All visible segments of the aorta are normal in size. Mild atherosclerotic changes noted in descending thoracic and arch of the aorta. Pericardium/Pleural There is a trivial pericardial effusion. Measurements Tricuspid Valve TR Pk Marcell: 2.68 TR Pk Grad: 29.00 Updated by Eric Richardson on 04:37 PM with Status of Final Eric Richardson MD electronically signed on 05/02/2021 4:37:57 PM with status of Final
[2021-05-02 20:09] LABS: Glucose, Whole Blood 236 mg/dL (60-115)
[2021-05-02] MEDS: Insulin Glargine,Hum.rec.anlog 100 UNIT/ML 10 ML VIAL 12 UNIT SUBCUT (21:44)
[2021-05-02] MEDS: Acetaminophen 325 MG TABLET 650 MG PO (21:45)
[2021-05-02] MEDS: Atorvastatin Calcium 40 MG TABLET PO (21:46)
[2021-05-03] VITALS (10 sets, daily range): BP systolic 116–142; BP diastolic 69–82; PULSE 85–98; RESP 18–20; TEMP 36.3–36.9; O2SAT 97–99; BMI 30.9
--- NOTE | 2021-05-03 01:19 | PC.NURSE ---
Pt reported feeling claustrophobic with CPAP on, refusing to wear it for tonight. O2 SAT at 98% on room air. Pt now in chair comfortably. Will continue to monitor.
[2021-05-03] MEDS: Apixaban 5 MG TABLET PO ×2 (04:36→17:09)
[2021-05-03 07:23] LABS: Glucose, Whole Blood 126 mg/dL (60-115)
--- NOTE | 2021-05-03 08:25 | HO.POSTANES ---
Post Anesthesia Evaluation Post Anesthesia Evaluation Vital Signs: Vital Signs Temp Pulse Resp BP Pulse Ox 05/03/21 08:00 97.5 F 88 20 128/82 99 05/03/21 03:22 97.4 F 85 19 116/78 99 05/02/21 23:41 97.6 F 69 18 96/64 100 05/02/21 21:46 95 105/68 05/02/21 21:45 95 105/68 Anesthesia: Monitored Mental Status: Awake Pain Control: Satisfactory Nausea/Vomiting: None Hydration: Adequate Anesthesia-Related Issues: No Anes. Related Issues
[2021-05-03] MEDS: 0.9 % Sodium Chloride Flush 3 ML SYRINGE IVFLUSH ×3 (08:35→21:06)
[2021-05-03] MEDS: Amiodarone HCL 200 MG TABLET PO ×2 (08:36→21:04)
[2021-05-03] MEDS: Furosemide 40 MG/4 ML VIAL IVPUSH ×2 (08:36→17:09)
[2021-05-03] MEDS: Metoprolol Tartrate 25 MG TABLET PO (08:36)
--- NOTE | 2021-05-03 10:57 | HO.PM.IMPN ---
Subjective Subjective Date of Service: 05/03/21 <Chen Rob NP - Last Filed: 05/03/21 11:12> 05/03/21 <Lexx Fisher MD - Last Filed: 05/03/21 19:00> Interval History: Follow-up atrial fibrillation with rapid ventricular response Still with some shortness of breath No chest pain <Chen Rob NP - Last Filed: 05/03/21 11:12> Physical Exam Vital Signs: Vital Signs: Last Vital Signs Temp 97.5 F 05/03/21 08:00 Pulse 88 05/03/21 08:36 Resp 20 05/03/21 08:00 BP 128/82 05/03/21 08:36 Pulse Ox 99 05/03/21 08:00 Body Mass Index 30.9 <Chen Rob NP - Last Filed: 05/03/21 11:12> Appearing in no acute distress lung sounds are clear to auscultation heart regular rate rhythm, clear S1, S2 positive bowel sounds, abdomen is soft, nontender neuro patient is alert x3, no focal deficits <Chen Rob NP - Last Filed: 05/03/21 11:12> Objective Data Current Medications Generic Name Dose Route Start Last Admin Trade Name Freq PRN Reason Stop Dose Admin Acetaminophen 650 mg 05/01/21 02:04 05/02/21 21:45 Acetaminophen 325 Mg Tablet PO 650 mg Q6H PRN Administration Pain, Mild (Pain Scale 1-3) Albuterol Sulfate 2 puff 05/01/21 15:06 Albuterol Sulfate 90 Mcg 8 Gm Inhaler INHALE Q6H PRN Shortness Of Breath Amiodarone HCl 200 mg 05/02/21 13:20 05/03/21 08:36 Amiodarone Hcl 200 Mg Tablet PO 200 mg BID KIM Administration Apixaban 5 mg 05/01/21 16:00 05/03/21 04:36 Apixaban 5 Mg Tablet PO 5 mg Q12H KIM Administration Atorvastatin Calcium 40 mg 05/01/21 21:00 05/02/21 21:46 Atorvastatin Calcium 40 Mg Tablet PO 40 mg BEDTIME KIM Administration Furosemide 40 mg 05/01/21 08:00 05/03/21 08:36 Furosemide 40 Mg/4 Ml Vial IVPUSH 40 mg BIDWM KIM Administration Protocol Insulin Glargine 12 unit 05/01/21 21:00 05/02/21 21:44 Insulin Glargine,Hum.Rec.Anlog 100 Unit/Ml 10 Ml Vial SUBCUT 12 unit BEDTIME KIM Administration Insulin Human Lispro 0 unit 05/01/21 07:30 05/03/21 07:22 Insulin Lispro 100 Unit/Ml 3 Ml Vial SUBCUT Not Given QIDACHS [facility] Protocol Lisinopril 20 mg 05/02/21 12:00 05/02/21 15:25 Lisinopril 20 Mg Tablet PO Not Given DAILY@1200 [facility] Protocol Magnesium Hydroxide 30 ml 05/01/21 02:04 Milk Of Magnesia 30 Ml Oral.Susp PO DAILY PRN Constipation Metoprolol Tartrate 25 mg 05/02/21 21:00 05/03/21 08:36 Metoprolol Tartrate 25 Mg Tablet PO 25 mg BID KIM Administration Protocol Sodium Chloride 3 ml 05/01/21 08:00 05/03/21 08:35 0.9 % Sodium Chloride Flush 3 Ml Syringe IVFLUSH 3 ml QSHIFT [facility] Administration Vitamin D 50 mcg 05/02/21 12:00 05/02/21 15:23 Cholecalciferol (Vitamin D3) 25 Mcg Tablet PO 50 mcg DAILY@1200 [facility] Administration <Chen Rob NP - Last Filed: 05/03/21 11:12> Labs CBC & Chem 7: : 05/02/21 05:34 05/03/21 13:22 <Chen Rob NP - Last Filed: 05/03/21 11:12> Assessment and Plan (1) New onset a-fib: Status: Acute <Chen Rob NP - Last Filed: 05/03/21 11:12> Assessment and Plan: This is a 76-year-old male with a past medical history of hypertension, hyperlipidemia, diabetes, coronary artery disease, CHF, CKD, gout presented to the hospital with a chief complaint of shortness of breath/abnormal EKG. Noted to have new onset AFib and mild CHF. Admitted for further management. New onset AFib status post cardioversion -metoprolol q6h, monitor heart rate. -Chadsvasc score 4, initially started on heparin drip, changed to Eliquis Elevated troponin: likely demand related, trops elevated but flat. no chest pain -cardiology following Acute on chronic combined systolic and diastolic heart failure presented with dyspnea, orthopnea, PND. Likely precipitated by AFib Echo from 04/11 with EF 40%, grade 2 diastolic dysfunction BNP trending up, although net negative 2.5L thus far -continue Lasix 40 mg IV b.i.d.. -Daily weights and I's and O's. -follow bnp CKD at baseline -Follow BMP Diabetes: -continue lantus (converted from toujeo), SSI 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 Blood pressure under adequate control -continue lisinpril, metoprolol HLD -continue statin SRINIVASA -cpap DVT prophylaxis: Eliquis Code status: Full code attending: Dr. Fisher <Chen Rob NP - Last Filed: 05/03/21 11:12> I saw and examined the patient and discussed findings, mangement, and disposition with PA and I agree with the above, except if otherwise stated <Lexx Fisher MD - Last Filed: 05/03/21 19:00>
[2021-05-03 11:05] LABS: Glucose, Whole Blood 124 mg/dL (60-115)
--- NOTE | 2021-05-03 11:58 | ECG_ITS ---
Test Reason : RHYTHM Blood Pressure : / mmHG Vent. Rate : 101 BPM Atrial Rate : 101 BPM P-R Int : 304 ms QRS Dur : 090 ms QT Int : 318 ms P-R-T Axes : 000 256 101 degrees QTc Int : 412 ms Sinus tachycardia with 1st degree A-V block Right superior axis deviation Pulmonary disease pattern Nonspecific T wave abnormality Abnormal ECG When compared to the previous EKG of QT has shortened Referred By: Eric Richardson Electronically Signed By:ERIC RICHARDSON MD
--- NOTE | 2021-05-03 12:29 | MHC.CM.PN ---
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 PT REPORTS HE LIVES WITH HIS AND IS INDEPENDENT WITH CARE., PT REPORTS HE HAS A WALKER BUT USUALLY USES HIS CANE. PT REPORTS HIS PCP IS RADHA GOODWIN. PT BELIEVES HE HAS A HCP BUT AGREES TO TAKE A BLANK DOCUMENT TO COMPLETE IN THE EVENT HE DOES NOT. IMM DELIVERED CURRENT DC PLAN IS HOME WITH NO SERVICES PTS WILL TRANSPORT
[2021-05-03] MEDS: lisinopriL 20 MG TABLET PO (13:22)
[2021-05-03] MEDS: Cholecalciferol (Vitamin D3) 25 MCG TABLET 50 MCG PO (13:22)
--- NOTE | 2021-05-03 13:25 | P.PNCA_ITS ---
Subjective Subjective Date of Service: 05/03/21 Principal diagnosis: CHF, atrial fibrillation Interval history: History obtained with help of master rigger.. Patient says last night he was short of breath and also this morning. However he is lying comfortably in bed and not short of breath at current time. No leg edema. Has diuresed well, however this morning did not chart his urine output. Accurate output chart is not available at this point time. Patient remains in sinus rhythm although with fast heart rate. Blood pressure is improved. Review of Systems Constitutional: Reports no additional constitutional complaints Cardiovascular: Reports no additional cardiovascular complaints and Reports d yspnea Respiratory: Reports dyspnea Gastrointestinal: Reports no additional gastrointestinal complaints Genitourinary: Reports no additional male genitourinary complaints Reports system reviewed and no additional complaints, except as documented Psychiatric: Reports no additional psychiatric complaints Endocrine: Reports no additional endocrine complaints Physical Exam Vital Signs: Last Vital Signs Temp 98.4 F 05/03/21 11:45 Pulse 98 05/03/21 13:22 Resp 20 05/03/21 11:45 BP 122/69 05/03/21 13:22 Pulse Ox 97 05/03/21 12:30 Body Mass Index 30.9 Const General: cooperative, comfortable, no acute distress, alert and awake Nutritional Appearance: overweight Orientation/consciousness: patient oriented x3 Neck Neck: Yes trachea midline, Yes supple and Yes no JVD Resp Effort & Inspection: normal respiratory effort Auscultation: clear to auscultation bilaterally Cardio Jugular venous distension: no JVD Palpation: normal PMI Rate: regular rate Rhythm: regular rhythm Heart sounds: S1 normal heart sound present and S2 normal heart sound present GI Auscultation: normal bowel sounds Skin General skin exam: no rashes or lesions noted Neuro General: patient oriented x3 and no focal motor deficits Extrem General: Yes no clubbing, cyanosis or edema Results Labs and Meds Result diagrams: 05/02/21 05:34 05/02/21 05:34 Lab results: Laboratory Results - last 24 hr 05/02/21 05/02/21 05/03/21 16:19 20:05 07:07 POC Glucose 164 H 236 H 126 H 05/03/21 10:56 POC Glucose 124 H Progress Note: A&P Assessment and plan (1) New onset a-fib: Status: Acute Assessment and Plan: New onset atrial fibrillation status post ISAÍAS guided cardioversion yesterday. Patient maintaining sinus rhythm although heart rate is elevated. Will increase metoprolol to 50 mg b.i.d.. Continue amiodarone 200 mg b.i.d. loading for 1 month followed by 200 mg daily. Outpatient follow-up with Holter monitor will be pursued. Continue full oral anticoagulation, currently on Eliquis 5 mg b.i.d.. Importance of blood thinner was discussed. (2) CHF (congestive heart failure): Status: Acute Assessment and Plan: CHF, clinically appears to be euvolemic and well compensated with no evidence of overt CHF at this time. Can switch to oral Lasix 40 mg daily. CHF education to be provided. Strict intake and output chart needs to be maintained while h ospitalized. Blood pressure is optimal. Increase in metoprolol and rhythm control approach as above. Continue on lisinopril therapy. Ambulate and out of bed to chair. Will check BMP and BNP today. Will follow the patient. Fall Risk Details Current Medications: Current Medications Generic Name Dose Route Start Last Admin Trade Name Freq PRN Reason Stop Dose Admin Acetaminophen 650 mg 05/01/21 02:04 05/02/21 21:45 Acetaminophen 325 Mg Tablet PO 650 mg Q6H PRN Administration Pain, Mild (Pain Scale 1-3) Albuterol Sulfate 2 puff 05/01/21 15:06 Albuterol Sulfate 90 Mcg 8 Gm Inhaler INHALE Q6H PRN Shortness Of Breath Amiodarone HCl 200 mg 05/02/21 13:20 05/03/21 08:36 Amiodarone Hcl 200 Mg Tablet PO 200 mg BID KIM Administration Apixaban 5 mg 05/01/21 16:00 05/03/21 04:36 Apixaban 5 Mg Tablet PO 5 mg Q12H KIM Administration Atorvastatin Calcium 40 mg 05/01/21 21:00 05/02/21 21:46 Atorvastatin Calcium 40 Mg Tablet PO 40 mg BEDTIME KIM Administration Furosemide 40 mg 05/01/21 08:00 05/03/21 08:36 Furosemide 40 Mg/4 Ml Vial IVPUSH 40 mg BIDWM KIM Administration Protocol Insulin Glargine 12 unit 05/01/21 21:00 05/02/21 21:44 Insulin Glargine,Hum.Rec.Anlog 100 Unit/Ml 10 Ml Vial SUBCUT 12 unit BEDTIME KIM Administration Insulin Human Lispro 0 unit 05/01/21 07:30 05/03/21 11:12 Insulin Lispro 100 Unit/Ml 3 Ml Vial SUBCUT Not Given QIDACHS [facility] Protocol Lisinopril 20 mg 05/02/21 12:00 05/03/21 13:22 Lisinopril 20 Mg Tablet PO 20 mg DAILY@1200 [facility] Administration Protocol Magnesium Hydroxide 30 ml 05/01/21 02:04 Milk Of Magnesia 30 Ml Oral.Susp PO DAILY PRN Constipation Metoprolol Tartrate 25 mg 05/02/21 21:00 05/03/21 08:36 Metoprolol Tartrate 25 Mg Tablet PO 25 mg BID [facility] Administration Protocol Sodium Chloride 3 ml 05/01/21 08:00 05/03/21 08:35 0.9 % Sodium Chloride Flush 3 Ml Syringe IVFLUSH 3 ml QSHIFT [facility] Administration Vitamin D 50 mcg 05/02/21 12:00 05/03/21 13:22 Cholecalciferol (Vitamin D3) 25 Mcg Tablet PO 50 mcg DAILY@1200 [facility] Administration Time Spent With Patient Time: Total time spent is greater than 50% in coordination of care (as documented) at patient's floor/unit and/or counseling patient: Time with patient: 25 - 35 minutes Procedures Date of Service Date of Service: 05/03/21
[2021-05-03 13:59] LABS: Anion Gap 20 (12-20); Blood Urea Nitrogen 50 mg/dL (9-16); Calcium 8.8 mg/dL (8.4-10.2); Carbon Dioxide 25 mmol/L (22-29); Chloride 101 mmol/L (96-108); Creatinine Clr Calc Pharmacy 28.9; Estimated Glomerular Filt Rate 31; Glucose Random 159 mg/dL (60-115); Potassium 3.6 mmol/L (3.3-5.1); Sodium 142 mmol/L (135-145)
[2021-05-03 14:03] LABS: B Type Natriuretic Peptide 574 pg/mL (<100)
[2021-05-03 20:30] LABS: Glucose, Whole Blood 243 mg/dL (60-115)
[2021-05-03] MEDS: Atorvastatin Calcium 40 MG TABLET PO (21:05)
[2021-05-03] MEDS: Metoprolol Tartrate 50 MG TABLET PO (21:05)
[2021-05-03] MEDS: Insulin Glargine,Hum.rec.anlog 100 UNIT/ML 10 ML VIAL 12 UNIT SUBCUT (21:06)
[2021-05-03] MEDS: Insulin Lispro 100 UNIT/ML 3 ML VIAL SUBCUT (21:06)
[2021-05-04] VITALS (12 sets, daily range): BP systolic 111–134; BP diastolic 62–77; PULSE 70–96; RESP 18–24; TEMP 36.2–36.7; O2SAT 93–100; BMI 31.2; BMI 30.3
[2021-05-04] MEDS: Apixaban 5 MG TABLET PO ×2 (04:20→16:03)
[2021-05-04] MEDS: Acetaminophen 325 MG TABLET 650 MG PO (04:21)
[2021-05-04 07:11] LABS: Glucose, Whole Blood 114 mg/dL (60-115)
[2021-05-04] MEDS: Metoprolol Tartrate 50 MG TABLET PO ×2 (07:53→20:40)
[2021-05-04] MEDS: Amiodarone HCL 200 MG TABLET PO ×2 (07:53→20:40)
[2021-05-04] MEDS: Furosemide 40 MG TABLET PO (07:54)
[2021-05-04] MEDS: 0.9 % Sodium Chloride Flush 3 ML SYRINGE IVFLUSH ×2 (07:57→16:05)
--- NOTE | 2021-05-04 09:27 | HO.PM.IMPN ---
Subjective Subjective Date of Service: 05/04/21 <Chen Rob NP - Last Filed: 05/04/21 09:55> 05/04/21 <Lexx Fisher MD - Last Filed: 05/04/21 14:18> Interval History: Follow up afib OOB to chair Some mild sob <Chen Rob NP - Last Filed: 05/04/21 09:55> Physical Exam Vital Signs: Vital Signs: Last Vital Signs Temp 97.1 F 05/04/21 07:43 Pulse 85 05/04/21 07:53 Resp 20 05/04/21 07:43 BP 118/70 05/04/21 07:53 Pulse Ox 98 05/04/21 07:43 Body Mass Index 30.3 <Chen Rob NP - Last Filed: 05/04/21 09:55> Appearing in no acute distress lung sounds are clear to auscultation heart regular rate rhythm, clear S1, S2 positive bowel sounds, abdomen is soft, nontender neuro patient is alert x3, no focal deficits <Chen Rob NP - Last Filed: 05/04/21 09:55> Objective Data Current Medications Generic Name Dose Route Start Last Admin Trade Name Freq PRN Reason Stop Dose Admin Acetaminophen 650 mg 05/01/21 02:04 05/04/21 04:21 Acetaminophen 325 Mg Tablet PO 650 mg Q6H PRN Administration Pain, Mild (Pain Scale 1-3) Albuterol Sulfate 2 puff 05/01/21 15:06 Albuterol Sulfate 90 Mcg 8 Gm Inhaler INHALE Q6H PRN Shortness Of Breath Amiodarone HCl 200 mg 05/02/21 13:20 05/04/21 07:53 Amiodarone Hcl 200 Mg Tablet PO 200 mg BID KIM Administration Apixaban 5 mg 05/01/21 16:00 05/04/21 04:20 Apixaban 5 Mg Tablet PO 5 mg Q12H KIM Administration Atorvastatin Calcium 40 mg 05/01/21 21:00 05/03/21 21:05 Atorvastatin Calcium 40 Mg Tablet PO 40 mg BEDTIME KIM Administration Furosemide 40 mg 05/04/21 09:00 05/04/21 07:54 Furosemide 40 Mg Tablet PO 40 mg DAILY KIM Administration Protocol Insulin Glargine 12 unit 05/01/21 21:00 05/03/21 21:06 Insulin Glargine,Hum.Rec.Anlog 100 Unit/Ml 10 Ml Vial SUBCUT 12 unit BEDTIME KIM Administration Insulin Human Lispro 0 unit 05/01/21 07:30 05/04/21 07:26 Insulin Lispro 100 Unit/Ml 3 Ml Vial SUBCUT Not Given QIDACHS REPLACED BY [facility] Protocol Lisinopril 20 mg 05/02/21 12:00 05/03/21 13:22 Lisinopril 20 Mg Tablet PO 20 mg DAILY@1200 REPLACED BY [facility] Administration Protocol Magnesium Hydroxide 30 ml 05/01/21 02:04 Milk Of Magnesia 30 Ml Oral.Susp PO DAILY PRN Constipation Metoprolol Tartrate 50 mg 05/03/21 21:00 05/04/21 07:53 Metoprolol Tartrate 50 Mg Tablet PO 50 mg BID REPLACED BY [facility] Administration Protocol Sodium Chloride 3 ml 05/01/21 08:00 05/04/21 07:57 0.9 % Sodium Chloride Flush 3 Ml Syringe IVFLUSH 3 ml QSHIFT REPLACED BY [facility] Administration Vitamin D 50 mcg 05/02/21 12:00 05/03/21 13:22 Cholecalciferol (Vitamin D3) 25 Mcg Tablet PO 50 mcg DAILY@1200 REPLACED BY [facility] Administration <Chen Rob NP - Last Filed: 05/04/21 09:55> Labs CBC & Chem 7: : 05/02/21 05:34 05/04/21 10:37 <Chen Rob NP - Last Filed: 05/04/21 09:55> Assessment and Plan (1) New onset a-fib: Status: Acute <Chen Rob NP - Last Filed: 05/04/21 09:55> Assessment and Plan: This is a 76-year-old male with a past medical history of hypertension, hyperlipidemia, diabetes, coronary artery disease, CHF, CKD, gout presented to the hospital with a chief complaint of shortness of breath/abnormal EKG. Noted to have new onset AFib and mild CHF. Admitted for further management. VTACH. 15 beat run this morning -Check Lytes, mag and trop -QTC -discuss with cardio New onset AFib status post cardioversion -metoprolol q6h, monitor heart rate. -Chadsvasc score 4, initially started on heparin drip, changed to Eliquis Elevated troponin: likely demand related, trops elevated but flat. no chest pain -cardiology following Acute on chronic combined systolic and diastolic heart failure presented with dyspnea, orthopnea, PND. Likely precipitated by AFib Echo from 04/11 with EF 40%, grade 2 diastolic dysfunction BNP trending up, although net negative 2.5L thus far -continue Lasix 40 mg IV b.i.d.. -Daily weights and I's and O's. -follow bnp CKD at baseline -Follow BMP Diabetes: -continue lantus (converted from toujeo), SSI 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 Blood pressure under adequate control -continue lisinpril, metoprolol HLD -continue statin SRINIVASA -cpap DVT prophylaxis: Eliquis Code status: Full code attending: Dr. Fisher <Chen Rob NP - Last Filed: 05/04/21 09:55> (2) CHF (congestive heart failure): Status: Acute <Chen Rob NP - Last Filed: 05/04/21 09:55> Assessment and Plan: I saw and examined the patient and discussed findings, mangement, and disposition with PA and I agree with the above, except if otherwise stated. He reports shortness of breath and there is concern for worsening heart failure and will be starting on Lasix drip and continue to monitor <Lexx Fisher MD - Last Filed: 05/04/21 14:18>
--- NOTE | 2021-05-04 10:11 | PC.NURSE ---
Around 0830, patient had 15 beat wide QRS tachycardia; patient stable, denies any issues, returned to sinus rhythm with 1st degree block with pulse in the 80s. Hospitalist notified, EKG completed. Patient reports increased shortness of breath while resting, which prior, only reported some shortness of breath while ambulating. Patient denies chest pain, dizziness, or lightheadedness. Patient afebrile, O2 SAT 98% on RA. Hospitalist notified. Labs pending. Awaiting further orders. Patient resting in bed in high geller's, bed alarm on, call bridges in reach, patient instructed to utilize call bridges. Patient verbalizes understanding. Awaiting further orders.
[2021-05-04 11:06] LABS: Glucose, Whole Blood 194 mg/dL (60-115)
[2021-05-04 11:18] LABS: Anion Gap 18 (12-20); Blood Urea Nitrogen 57 mg/dL (9-16); Calcium 8.9 mg/dL (8.4-10.2); Carbon Dioxide 25 mmol/L (22-29); Chloride 100 mmol/L (96-108); Creatinine Clr Calc Pharmacy 27.2; Estimated Glomerular Filt Rate 30; Glucose Random 184 mg/dL (60-115); Potassium 3.9 mmol/L (3.3-5.1); Sodium 139 mmol/L (135-145)
[2021-05-04 11:19] LABS: Magnesium 2.1 mg/dL (1.6-2.6)
[2021-05-04 11:31] LABS: Troponin-I High Sensitivity 724.1 ng/L (<3.5-35.0)
[2021-05-04] MEDS: Cholecalciferol (Vitamin D3) 25 MCG TABLET 50 MCG PO (11:53)
[2021-05-04] MEDS: Insulin Lispro 100 UNIT/ML 3 ML VIAL SUBCUT ×3 (11:53→20:40)
--- NOTE | 2021-05-04 12:24 | PM.PNCARD ---
Subjective Subjective Date of Service: 05/04/21 Principal diagnosis: CHF, atrial fibrillation Interval history: Patient this morning had about 15 beat run of nonsustained VT at about 130-140 beats per minute. Patient continues to have symptoms of shortness of breath nighttime when he is laying down as well as this morning when he is laying down. No significant leg edema or abdominal distension. His creatinine is bumped up. His lisinopril was held this morning. Blood pressure is stable. Remains in sinus rhythm. Review of Systems Constitutional: Reports no additional constitutional complaints Cardiovascular: Denies chest pain, Denies lightheadedness, Denies Loss of Consciousness, Denies palpitations, Reports dyspnea and Reports orthopnea Respiratory: Denies cough and Reports dyspnea Gastrointestinal: Reports no additional gastrointestinal complaints Reports system reviewed and no additional complaints, except as documented Psychiatric: Reports no additional psychiatric complaints Endocrine: Reports no additional endocrine complaints and Denies palpitations Physical Exam Vital Signs: Last Vital Signs Temp 97.5 F 05/04/21 11:35 Pulse 90 05/04/21 11:35 Resp 18 05/04/21 11:35 BP 123/76 05/04/21 11:35 Pulse Ox 93 05/04/21 11:35 Body Mass Index 30.3 Const General: cooperative, comfortable, no acute distress, alert and awake Nutritional Appearance: overweight Orientation/consciousness: patient oriented x3 Neck Neck: Yes trachea midline, Yes supple and Yes JVD Resp Effort & Inspection: normal respiratory effort Auscultation: crackles and no wheezes Cardio Jugular venous distension: no JVD Palpation: normal PMI Rate: regular rate Rhythm: regular rhythm Heart sounds: S1 normal heart sound present and S2 normal heart sound present Skin General skin exam: no rashes or lesions noted Neuro General: patient oriented x3 and no focal motor deficits Extrem General: No clubbing, No cyanosis and No edema Results Labs and Meds Result diagrams: 05/02/21 05:34 05/04/21 10:37 Lab results: Laboratory Results - last 24 hr 05/03/21 05/03/21 05/03/21 13:22 13:22 20:25 Sodium 142 Potassium 3.6 Chloride 101 Carbon Dioxide 25 Anion Gap 20 BUN 50 H Creatinine 2.08 H Estim Creat Clear Calc 28.9 Estimated GFR 31 POC Glucose 243 H Random Glucose 159 H D Calcium 8.8 Magnesium Troponin I High Sens B-Natriuretic Peptide 574 H 05/04/21 05/04/21 05/04/21 06:57 10:37 10:37 Sodium 139 Potassium 3.9 Chloride 100 Carbon Dioxide 25 Anion Gap 18 BUN 57 H Creatinine 2.19 H Estim Creat Clear Calc 27.2 Estimated GFR 30 POC Glucose 114 Random Glucose 184 H Calcium 8.9 Magnesium Troponin I High Sens 724.1 H* B-Natriuretic Peptide 05/04/21 05/04/21 10:37 10:52 Sodium Potassium Chloride Carbon Dioxide Anion Gap BUN Creatinine Estim Creat Clear Calc Estimated GFR POC Glucose 194 H Random Glucose Calcium Magnesium 2.1 Troponin I High Sens B-Natriuretic Peptide Progress Note: A&P Assessment and plan (1) CHF (congestive heart failure): Status: Acute Assessment and Plan: Patient complains of symptoms suggestive of heart failure. There is evidence of JVD. Worsened renal function, otherwise does not appear to be significantly fluid overloaded with no significant leg edema. This is a confusing clinical picture. Not sure as to etiology. Could be atrial standstill after cardioversion with atrial myopathy. This could lead to reduce stroke volume as well as congestive heart failure. Will start him on IV Lasix drip at 5 mg an hour. Strict intake and output chart needs to be pursued. Continue to trend BNP and BMP. Will continue to monitor closely. Consider Nephrology consult as well. Agree to hold lisinopril therapy at this point time. Continue metoprolol therapy. Consider limited echocardiogram tomorrow to assess for filling pressures. Less likely this represents pulmonary embolism given that he is on oral anticoagulation therapy. (2) New onset a-fib: Status: Acute Assessment and Plan: New onset atrial fibrillation status post cardioversion. Not sure as to his worsening heart failure symptoms at this point time. Could be due to atrial myopathy and atrial standstill poor cardioversion. Obtain an echocardiogram tomorrow. Continue amiodarone to maintain rhythm. Continue metoprolol therapy. Continue full oral anticoagulation, currently on 5 mg b.i.d. of Eliquis. Prognosis is guarded. Will continue to follow with the patient. Fall Risk Details Current Medications: Current Medications Generic Name Dose Route Start Last Admin Trade Name Freq PRN Reason Stop Dose Admin Acetaminophen 650 mg 05/01/21 02:04 05/04/21 04:21 Acetaminophen 325 Mg Tablet PO 650 mg Q6H PRN Administration Pain, Mild (Pain Scale 1-3) Albuterol Sulfate 2 puff 05/01/21 15:06 Albuterol Sulfate 90 Mcg 8 Gm Inhaler INHALE Q6H PRN Shortness Of Breath Amiodarone HCl 200 mg 05/02/21 13:20 05/04/21 07:53 Amiodarone Hcl 200 Mg Tablet PO 200 mg BID KIM Administration Apixaban 5 mg 05/01/21 16:00 05/04/21 04:20 Apixaban 5 Mg Tablet PO 5 mg Q12H KIM Administration Atorvastatin Calcium 40 mg 05/01/21 21:00 05/03/21 21:05 Atorvastatin Calcium 40 Mg Tablet PO 40 mg BEDTIME KIM Administration Insulin Glargine 12 unit 05/01/21 21:00 05/03/21 21:06 Insulin Glargine,Hum.Rec.Anlog 100 Unit/Ml 10 Ml Vial SUBCUT 12 unit BEDTIME KIM Administration Insulin Human Lispro 0 unit 05/01/21 07:30 05/04/21 11:53 Insulin Lispro 100 Unit/Ml 3 Ml Vial SUBCUT 2 unit QIDACHS [facility] Administration Protocol Magnesium Hydroxide 30 ml 05/01/21 02:04 Milk Of Magnesia 30 Ml Oral.Susp PO DAILY PRN Constipation Metoprolol Tartrate 50 mg 05/03/21 21:00 05/04/21 07:53 Metoprolol Tartrate 50 Mg Tablet PO 50 mg BID [facility] Administration Protocol Sodium Chloride 3 ml 05/01/21 08:00 05/04/21 07:57 0.9 % Sodium Chloride Flush 3 Ml Syringe IVFLUSH 3 ml QSHIFT [facility] Administration Vitamin D 50 mcg 05/02/21 12:00 05/04/21 11:53 Cholecalciferol (Vitamin D3) 25 Mcg Tablet PO 50 mcg DAILY@1200 [facility] Administration Time Spent With Patient Time: Total time spent is greater than 50% in coordination of care (as documented) at patient's floor/unit and/or counseling patient: Time with patient: 25 - 35 minutes Procedures Date of Service Date of Service: 05/04/21
[2021-05-04] MEDS: Furosemide 200 MG in 0.9 % Sodium Chloride 80 ML IVCONT (16:05)
[2021-05-04 16:19] LABS: Glucose, Whole Blood 152 mg/dL (60-115)
[2021-05-04 20:17] LABS: Glucose, Whole Blood 171 mg/dL (60-115)
[2021-05-04] MEDS: Insulin Glargine,Hum.rec.anlog 100 UNIT/ML 10 ML VIAL 12 UNIT SUBCUT (20:39)
[2021-05-04] MEDS: Atorvastatin Calcium 40 MG TABLET PO (20:40)
[2021-05-04] MEDS: Albuterol Sulfate 90 MCG 8 GM INHALER 2 PUFF INHALE (22:26)
[2021-05-05] VITALS (11 sets, daily range): BP systolic 111–156; BP diastolic 68–76; PULSE 62–100; RESP 18–20; TEMP 36.4–36.7; O2SAT 97–99; BMI 31.6
[2021-05-05 04:59] LABS: Glucose, Whole Blood 78 mg/dL (60-115)
[2021-05-05] MEDS: ondansetron HCL 4 MG/2 ML VIAL IVPUSH (04:59)
[2021-05-05 05:08] LABS: Glucose, Whole Blood 121 mg/dL (60-115)
[2021-05-05 07:09] LABS: Glucose, Whole Blood 109 mg/dL (60-115)
--- NOTE | 2021-05-05 07:30 | CA_ITS ---
Transthoracic Echocardiogram Limited Patient (Last, First, Middle): Jonathan Neal A Gender: Male Date of : 1945 Age: 76 Procedure Date: 05/05/2021 Procedure Type: Transthoracic Echocardiogram Limited Location: [facility] Height: 160.02 cm Weight: 80.74 kg BSA: 1.84 m2 Heart Rate: bpm BP: 156 / 65 mmHg Engine Dispatcher: Referring MD: Eric Richardson MD Symptoms: Persistent CHF, evaluate for IVC size and atrial function Study Quality: Good ECG Rhythm: Sinus Conclusions: - The left ventricular systolic function is severely decreased. The visually estimated ejection fraction is between 15-20%. - Evidence suggests grade III (severe) diastolic dysfunction. - Mild to moderate pulmonary hypertension is present. - The inferior vena cava is mildly dilated and does not collapse with inspiration. Findings Left Ventricle Normal left ventricular cavity size. There is severely increased left ventricular wall thickness. The left ventricular systolic function is severely decreased. The visually estimated ejection fraction is between 15 20%. There is severe global hypokinesis. E/E prime ratio is >15, consistent with elevated filling pressures. Evidence suggests grade III (severe) diastolic dysfunction. Right Ventricle Normal right ventricular cavity size. There is low normal right ventricular systolic function. Tricuspid Valve There is mild tricuspid valve regurgitation. The right ventricular systolic pressure is 44 mmHg. Mild to moderate pulmonary hypertension is present. Venous The inferior vena cava is mildly dilated and does not collapse with inspiration. Pericardium/Pleural There is a trivial pericardial effusion. Prior Study Comparison Changes noted compared to prior study dated: 05/02/2021. LVEF is lower than previously reported. Measurements 2D Linear Measurements IVSd: 1.67 0.6-0.9/0.6-1.0 cm LVIDd: 4.30 3.9-5.3/4.2-5.9 cm LVIDd Index: 2.34 2.4-3.2/2.2-3.1 cm/m2 LVIDs: 3.97 2.0-3.6 cm LVPWd: 1.61 0.7-1.1 cm LV Mass: 370.25 67-162/88-224 g LV Mass Index: 201.22 43-95/49-115 g/m2 2D Systolic Function EF 4C: 15.20 >55% EF 2C: 31.00 >55% EF BiP: 21.10 >55% Mitral Valve MV Pk E: 0.91 MV Decel Time: 162.00 E'Lateral: 4.13 E'Medial: 3.26 E/E' Med: 27.90 E/E' Lat: 22.00 PHT: 47.00 MVA PHT: 4.68 Decel [place]: 5.61 Diastolic Function MV Pk E: 0.91 E'Medial: 3.26 E/E' Med: 27.90 E' Laterial: 4.13 E/E' Lat: 22.00 Tricuspid Valve TR Pk Marcell: 2.69 TR Pk Grad: 29.00 RA Press: 15.00 RVSP: 44.00 Updated in Other Vendor System with Status of Final Jas Dudley MD electronically signed on 05/05/2021 4:26:10 PM with status of Final
[2021-05-05] MEDS: Amiodarone HCL 200 MG TABLET PO ×2 (07:32→21:11)
[2021-05-05] MEDS: Metoprolol Tartrate 50 MG TABLET PO ×2 (07:32→21:10)
[2021-05-05 08:33] LABS: Alanine Aminotransferase 54 U/L (0-40); Albumin Level 3.7 g/dL (3.5-5.0); Alkaline Phosphatase 105 U/L (39-117); Aspartate Amino Transferase 39 U/L (5-37); Bilirubin Direct 0.7 mg/dL (0.0-0.5); Bilirubin Total 1.6 mg/dL (0.0-1.0); Total Protein 6.2 g/dL (6.5-8.0)
[2021-05-05 08:34] LABS: B Type Natriuretic Peptide 1202 pg/mL (<100)
[2021-05-05 08:42] LABS: Anion Gap 17 (12-20); Blood Urea Nitrogen 56 mg/dL (9-16); Carbon Dioxide 25 mmol/L (22-29); Chloride 100 mmol/L (96-108); Creatinine Clr Calc Pharmacy 29.6; Estimated Glomerular Filt Rate 32; Glucose Random 117 mg/dL (60-115); Potassium 3.8 mmol/L (3.3-5.1); Sodium 138 mmol/L (135-145)
[2021-05-05 08:53] LABS: Troponin-I High Sensitivity 664.8 ng/L (<3.5-35.0)
[2021-05-05] MEDS: Apixaban 5 MG TABLET PO ×2 (09:25→21:11)
--- NOTE | 2021-05-05 10:32 | HO.PM.IMPN ---
Subjective Subjective Date of Service: 05/05/21 <Chen Rob NP - Last Filed: 05/05/21 10:38> 05/05/21 <Johnny Venegas MD - Last Filed: 05/07/21 11:54> Interval History: follow-up atrial fibrillation congestive heart failure still with shortness of breath, sitting in the edge of the bed <Chen Rob NP - Last Filed: 05/05/21 10:38> Physical Exam Vital Signs: Vital Signs: Last Vital Signs Temp 97.7 F 05/05/21 07:25 Pulse 87 05/05/21 07:32 Resp 19 05/05/21 07:25 BP 128/70 05/05/21 07:32 Pulse Ox 98 05/05/21 07:25 Body Mass Index 31.6 <Chen Rob NP - Last Filed: 05/05/21 10:38> Appearing in no acute distress lung sounds are clear to auscultation heart regular rate rhythm, clear S1, S2 positive bowel sounds, abdomen is soft, nontender neuro patient is alert x3, no focal deficits <Chen Rob NP - Last Filed: 05/05/21 10:38> Objective Data Current Medications Generic Name Dose Route Start Last Admin Trade Name Freq PRN Reason Stop Dose Admin Acetaminophen 650 mg 05/01/21 02:04 05/04/21 04:21 Acetaminophen 325 Mg Tablet PO 650 mg Q6H PRN Administration Pain, Mild (Pain Scale 1-3) Albuterol Sulfate 2 puff 05/01/21 15:06 05/04/21 22:26 Albuterol Sulfate 90 Mcg 8 Gm Inhaler INHALE 2 puff Q6H PRN Administration Shortness Of Breath Amiodarone HCl 200 mg 05/02/21 13:20 05/05/21 07:32 Amiodarone Hcl 200 Mg Tablet PO 200 mg BID KIM Administration Apixaban 5 mg 05/05/21 09:00 05/05/21 09:25 Apixaban 5 Mg Tablet PO 5 mg Q12H KIM Administration Atorvastatin Calcium 40 mg 05/01/21 21:00 05/04/21 20:40 Atorvastatin Calcium 40 Mg Tablet PO 40 mg BEDTIME KIM Administration Furosemide 200 mg/ Sodium 100 mls @ 2.5 mls/hr 05/04/21 14:30 05/04/21 16:05 Chloride IVCONT 5 mg/hr .Q24H KIM 2.5 mls/hr Administration 5 MG/HR Insulin Glargine 12 unit 05/01/21 21:00 05/04/21 20:39 Insulin Glargine,Hum.Rec.Anlog 100 Unit/Ml 10 Ml Vial SUBCUT 12 unit BEDTIME KIM Administration Insulin Human Lispro 0 unit 05/01/21 07:30 05/05/21 07:11 Insulin Lispro 100 Unit/Ml 3 Ml Vial SUBCUT Not Given QIDACHS [facility] Protocol Magnesium Hydroxide 30 ml 05/01/21 02:04 Milk Of Magnesia 30 Ml Oral.Susp PO DAILY PRN Constipation Metoprolol Tartrate 50 mg 05/03/21 21:00 05/05/21 07:32 Metoprolol Tartrate 50 Mg Tablet PO 50 mg BID KIM Administration Protocol Sodium Chloride 3 ml 05/01/21 08:00 05/05/21 07:12 0.9 % Sodium Chloride Flush 3 Ml Syringe IVFLUSH Not Given QSHIFT [facility] Vitamin D 50 mcg 05/02/21 12:00 05/04/21 11:53 Cholecalciferol (Vitamin D3) 25 Mcg Tablet PO 50 mcg DAILY@1200 [facility] Administration <Chen Rob NP - Last Filed: 05/05/21 10:38> Labs CBC & Chem 7: : 05/07/21 05:44 05/07/21 05:44 <Chen Rob NP - Last Filed: 05/05/21 10:38> Assessment and Plan (1) New onset a-fib: Status: Acute <Chen Rob NP - Last Filed: 05/05/21 10:38> Assessment and Plan: This is a 76-year-old male with a past medical history of hypertension, hyperlipidemia, diabetes, coronary artery disease, CHF, CKD, gout presented to the hospital with a chief complaint of shortness of breath/abnormal EKG. Noted to have new onset AFib and mild CHF. Admitted for further management. Acute on chronic combined systolic and diastolic heart failure presented with dyspnea, orthopnea, PND. Likely precipitated by AFib Echo from 04/11 with EF 40%, grade 2 diastolic dysfunction BNP continuing to trend up, although net negative 2.5L thus far still with shortness of breath especially at night - started on Lasix drip - echocardiogram pending - Daily weights and I's and O's. - follow bnp Elevated troponin. No chest pain likely secondary to heart failure and atrial fibrillation likely demand related, trops elevated but flat. no chest pain -cardiology following MORTEZA on CKD, improving, likely cardiorenal diuresing -Follow BMP Transaminitis. Secondary to congestion from heart failure VTACH. 15 beat run 05/04/21 no further episodes -Check Lytes, mag and trop -QTC -discuss with cardio New onset AFib status post cardioversion -metoprolol q6h, monitor heart rate. -Chadsvasc score 4, initially started on heparin drip, changed to Eliquis Diabetes: -continue lantus (converted from toujeo), SSI 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 Blood pressure under adequate control -continue lisinpril, metoprolol HLD -continue statin SRINIVASA -cpap DVT prophylaxis: Eliquis Code status: Full code attending: Dr. Venegas <Chen Rob NP - Last Filed: 05/05/21 10:38>
[2021-05-05 11:07] LABS: Glucose, Whole Blood 145 mg/dL (60-115)
--- NOTE | 2021-05-05 11:20 | P.PNCA_ITS ---
Subjective Subjective Date of Service: 05/05/21 <GIOVANA Macias - Last Filed: 05/05/21 13:19> 05/05/21 <Jas Dudley MD - Last Filed: 05/05/21 13:23> Principal diagnosis: CHF, atrial fibrillation <GIOVANA Macias - Last Filed: 05/05/21 13:19> Interval history: Cardiology follow up for CHF, AF. Seen at 0915. Today he reports ongoing feeling of sob when he lays down. Mild sob noted with him walking in room. Denies chest or abdominal pains. No palpitations, dizziness, edema. Certified Chinese Interpretor used. <GIOVANA Macias - Last Filed: 05/05/21 13:19> Review of Systems Review of Systems as above <GIOVANA Macias - Last Filed: 05/05/21 13:19> Yes all other systems are reviewed and are negative <GIOVANA Macias - Last Filed: 05/05/21 13:19> Physical Exam Vital Signs: Last Vital Signs Temp 97.7 F 05/05/21 07:25 Pulse 87 05/05/21 07:32 Resp 19 05/05/21 07:25 BP 128/70 05/05/21 07:32 Pulse Ox 98 05/05/21 07:25 Body Mass Index 31.6 <GIOVANA Macias - Last Filed: 05/05/21 13:19> Const General: cooperative, no acute distress, alert and awake <GIOVANA Macias - Last Filed: 05/05/21 13:19> Orientation/consciousness: patient oriented x3 <GIOVANA Macias - Last Filed: 05/05/21 13:19> Eyes Conjunctivae: conjunctivae normal <GIOVANA Macias - Last Filed: 05/05/21 13:19> Resp Other: mild sob noted with him walking in room. <GIOVANA Macias Last Filed: 05/05/21 13:19> Effort & Inspection: able to speak in complete sentences <GIOVANA Macias - Last Filed: 05/05/21 13:19> Auscultation: clear to auscultation bilaterally, no crackles, no rales, no rhonchi and no wheezes <Dona Diez NP - Last Filed: 05/05/21 13:19> Cardio Jugular venous distension: JVD present <Dona Diez NPC - Last Filed: 05/05/21 13:19> Palpation: normal PMI <Dona Diez NPC - Last Filed: 05/05/21 13:19> Rate: regular rate <Dona Chary [facility] - Last Filed: 05/05/21 13:19> Rhythm: regular rhythm <[facility] Chary [facility] - Last Filed: 05/05/21 13:19> Heart sounds: S1 normal heart sound present and S2 normal heart sound present <Dona Diez NPC - Last Filed: 05/05/21 13:19> Peripheral pulses: Peripheral pulses 2+ throughout <Dona Diez [facility] - Last Filed: 05/05/21 13:19> GI Inspection: Yes normal to inspection <Donamarcial Diez [facility] - Last Filed: 05/05/21 13:19> Neuro General: patient oriented x3 <Dona Diez NP - Last Filed: 05/05/21 13:19> Extrem General: Yes normal to inspection and No edema <Dona Diez NP - Last Filed: 05/05/21 13:19> Results Labs and Meds Result diagrams: : 05/02/21 05:34 05/05/21 07:58 <Dona Diez [facility] - Last Filed: 05/05/21 13:19> Lab results: Laboratory Results - last 24 hr 05/04/21 05/04/21 05/04/21 10:37 16:14 20:08 Sodium Potassium Chloride Carbon Dioxide Anion Gap BUN Creatinine Estim Creat Clear Calc Estimated GFR POC Glucose 152 H 171 H Random Glucose Calcium Total Bilirubin Direct Bilirubin AST ALT Alkaline Phosphatase Troponin I High Sens 724.1 H* B-Natriuretic Peptide Total Protein Albumin 05/05/21 05/05/21 05/05/21 04:32 04:59 07:05 Sodium Potassium Chloride Carbon Dioxide Anion Gap BUN Creatinine Estim Creat Clear Calc Estimated GFR POC Glucose 78 121 H 109 Random Glucose Calcium Total Bilirubin Direct Bilirubin AST ALT Alkaline Phosphatase Troponin I High Sens B-Natriuretic Peptide Total Protein Albumin 05/05/21 05/05/21 05/05/21 07:58 07:58 07:58 Sodium Potassium Chloride Carbon Dioxide Anion Gap BUN Creatinine Estim Creat Clear Calc Estimated GFR POC Glucose Random Glucose Calcium Total Bilirubin 1.6 H Direct Bilirubin 0.7 H AST 39 H D ALT 54 H Alkaline Phosphatase 105 Troponin I High Sens 664.8 H* B-Natriuretic Peptide 1202 H Total Protein 6.2 L Albumin 3.7 05/05/21 05/05/21 07:58 10:54 Sodium 138 Potassium 3.8 Chloride 100 Carbon Dioxide 25 Anion Gap 17 BUN 56 H Creatinine 2.06 H Estim Creat Clear Calc 29.6 Estimated GFR 32 POC Glucose 145 H Random Glucose 117 H D Calcium 9.0 Total Bilirubin Direct Bilirubin AST ALT Alkaline Phosphatase Troponin I High Sens B-Natriuretic Peptide Total Protein Albumin <GIOVANA Macias - Last Filed: 05/05/21 13:19> Progress Note: A&P Assessment and plan (1) New onset a-fib: Status: Acute <GIOVANA Macias - Last Filed: 05/05/21 13:19> Assessment and Plan: New afib noted this admit. Had ISAÍAS Cardioversion with Dr Richardson on 05/02 then was started on Amiodarone for rhythm control. Tele shows SR rates 70- 100. Yesterday am he had a 17 beat NSVT run. None since then. On ISAÍAS, EF was noted to be 35-40%, mod biatrial enlargement, mild MR. Continue Amiodarone load of 200mg bid, Continue Metoprolol for rate control. Continue Eliquis for anticoagulation. Ongoing Tele monitoring. <GIOVANA Macias - Last Filed: 05/05/21 13:19> (2) CHF (congestive heart failure): Status: Acute <GIOVANA Macias - Last Filed: 05/05/21 13:19> Assessment and Plan: Hx of CMP with prior EF 40-45% 06/2020. EF now 35-40%. Has had reports of orthopnea, PND this admit. BNP elevated. Being treated for acute on chronic HFrEF. Diuresing with Lasix drip at 5mg/hr with neg fluid balance 3700cc since admit. BNP today further elevated at 1202. Cr 2.06, was 2.19 yesterday. Still reporting orthopnea. Continue Lasix drip. Strict I+O monitoring, close monitoring of electrolyte and kidney function. Electrolyte replacement as warranted. <GIOVANA Macias - Last Filed: 05/05/21 13:19> (3) Cardiomyopathy: Status: Acute <GIOVANA Macias - Last Filed: 05/05/21 13:19> Assessment and Plan: EF further reduced from prior known. Could be related to the atrial fibrillation, elevated rates. Now back in SR. Home Lisinopril placed on hold on admit, likely due to MORTEZA. Plan to resume Lisinopril if Cr returns to baseline. Continue Metoprolol for neurohormonal modulation. <GIOVANA Macias - Last Filed: 05/05/21 13:19> (4) Elevated troponin: Status: Acute <GIOVANA Macias - Last Filed: 05/05/21 13:19> Assessment and Plan: No reports of CP. EKG without ischemia. ISAÍAS did not show WMA. All trops elevated this between 400-700 this admit. Could be related to demand from CHF, afib and post CVR. <GIOVANA Macias - Last Filed: 05/05/21 13:19> Fall Risk Details Current Medications: Current Medications Generic Name Dose Route Start Last Admin Trade Name Freq PRN Reason Stop Dose Admin Acetaminophen 650 mg 05/01/21 02:04 05/04/21 04:21 Acetaminophen 325 Mg Tablet PO 650 mg Q6H PRN Administration Pain, Mild (Pain Scale 1-3) Albuterol Sulfate 2 puff 05/01/21 15:06 05/04/21 22:26 Albuterol Sulfate 90 Mcg 8 Gm Inhaler INHALE 2 puff Q6H PRN Administration Shortness Of Breath Amiodarone HCl 200 mg 05/02/21 13:20 05/05/21 07:32 Amiodarone Hcl 200 Mg Tablet PO 200 mg BID KIM Administration Apixaban 5 mg 05/05/21 09:00 05/05/21 09:25 Apixaban 5 Mg Tablet PO 5 mg Q12H KIM Administration Atorvastatin Calcium 40 mg 05/01/21 21:00 05/04/21 20:40 Atorvastatin Calcium 40 Mg Tablet PO 40 mg BEDTIME KIM Administration Furosemide 200 mg/ Sodium 100 mls @ 2.5 mls/hr 05/04/21 14:30 05/04/21 16:05 Chloride IVCONT 5 mg/hr .Q24H KIM 2.5 mls/hr Administration 5 MG/HR Insulin Glargine 12 unit 05/01/21 21:00 05/04/21 20:39 Insulin Glargine,Hum.Rec.Anlog 100 Unit/Ml 10 Ml Vial SUBCUT 12 unit BEDTIME KIM Administration Insulin Human Lispro 0 unit 05/01/21 07:30 05/05/21 11:09 Insulin Lispro 100 Unit/Ml 3 Ml Vial SUBCUT Not Given QIDACHS [facility] Protocol Magnesium Hydroxide 30 ml 05/01/21 02:04 Milk Of Magnesia 30 Ml Oral.Susp PO DAILY PRN Constipation Metoprolol Tartrate 50 mg 05/03/21 21:00 05/05/21 07:32 Metoprolol Tartrate 50 Mg Tablet PO 50 mg BID KIM Administration Protocol Sodium Chloride 3 ml 05/01/21 08:00 05/05/21 07:12 0.9 % Sodium Chloride Flush 3 Ml Syringe IVFLUSH Not Given QSHIFT KIM Vitamin D 50 mcg 05/02/21 12:00 05/04/21 11:53 Cholecalciferol (Vitamin D3) 25 Mcg Tablet PO 50 mcg DAILY@1200 KIM Administration <GIOVANA Macias - Last Filed: 05/05/21 13:19> Time Spent With Patient Time: Total time spent is greater than 50% in coordination of care (as documented) at patient's floor/unit and/or counseling patient: 24 <GIOVANA Macias - Last Filed: 05/05/21 13:19> Time with patient: 15 - 24 minutes <GIOVANA Macias - Last Filed: 05/05/21 13:19> Procedures Date of Service Date of Service: 05/05/21 <GIOVANA Macias - Last Filed: 05/05/21 13:19>
[2021-05-05] MEDS: Cholecalciferol (Vitamin D3) 25 MCG TABLET 50 MCG PO (12:06)
[2021-05-05] MEDS: Furosemide 200 MG in 0.9 % Sodium Chloride 80 ML IVCONT (14:52)
[2021-05-05] MEDS: 0.9 % Sodium Chloride Flush 3 ML SYRINGE IVFLUSH (14:53)
[2021-05-05 16:22] LABS: Glucose, Whole Blood 106 mg/dL (60-115)
[2021-05-05 20:15] LABS: Glucose, Whole Blood 169 mg/dL (60-115)
[2021-05-05] MEDS: Atorvastatin Calcium 40 MG TABLET PO (21:10)
[2021-05-05] MEDS: Insulin Glargine,Hum.rec.anlog 100 UNIT/ML 10 ML VIAL 12 UNIT SUBCUT (21:10)
[2021-05-05] MEDS: Insulin Lispro 100 UNIT/ML 3 ML VIAL SUBCUT (21:10)
[2021-05-06] VITALS (7 sets, daily range): BP systolic 107–127; BP diastolic 59–79; PULSE 60–92; RESP 16–20; TEMP 36.3–36.8; O2SAT 96–99; BMI 30.9
[2021-05-06 04:32] LABS: Glucose, Whole Blood 82 mg/dL (60-115)
--- NOTE | 2021-05-06 04:37 | PC.NURSE ---
pt reported feeling like his blood sugar was low. POC was taken and it was 82. Pt was given 4oz juice. Will recheck in 15 minutes
[2021-05-06 06:49] LABS: Anion Gap 17 (12-20); Blood Urea Nitrogen 61 mg/dL (9-16); Calcium 8.8 mg/dL (8.4-10.2); Carbon Dioxide 24 mmol/L (22-29); Chloride 99 mmol/L (96-108); Creatinine Clr Calc Pharmacy 25.3; Estimated Glomerular Filt Rate 27; Glucose Random 152 mg/dL (60-115); Potassium 4.2 mmol/L (3.3-5.1); Sodium 136 mmol/L (135-145)
[2021-05-06 07:04] LABS: B Type Natriuretic Peptide 926 pg/mL (<100)
[2021-05-06 07:29] LABS: Glucose, Whole Blood 92 mg/dL (60-115)
[2021-05-06] MEDS: 0.9 % Sodium Chloride Flush 3 ML SYRINGE IVFLUSH ×3 (08:25→21:15)
[2021-05-06] MEDS: Metoprolol Tartrate 50 MG TABLET PO ×2 (09:02→21:14)
[2021-05-06] MEDS: Apixaban 5 MG TABLET PO ×2 (09:02→21:14)
[2021-05-06] MEDS: Amiodarone HCL 200 MG TABLET PO ×2 (09:02→21:14)
--- NOTE | 2021-05-06 10:20 | P.PNCA_ITS ---
Subjective Subjective Date of Service: 05/06/21 Principal diagnosis: CHF, atrial fibrillation Interval history: He is slightly better in terms of shortness of breath. States he is less tired. Continues to be on Lasix drip. Review of Systems Review of Systems Yes all other systems are reviewed and are negative Cardiovascular: Reports as per HPI, Reports no additional cardiovascular complaints, Denies acrocyanosis, Denies cool extremities, Denies painful fingertips, Denies chest pain, Denies chest pain at rest, Denies diaphoresis, Denies syncope, Denies irregular heart rhythm, Denies claudication, Denies leg edema, Denies lightheadedness, Denies palpitations and Reports dyspnea Respiratory: Reports dyspnea Denies syncope Endocrine: Denies palpitations Physical Exam Vital Signs: Last Vital Signs Temp 97.4 F 05/06/21 07:40 Pulse 80 05/06/21 09:02 Resp 20 05/06/21 07:40 BP 117/71 05/06/21 09:02 Pulse Ox 99 05/06/21 07:40 Body Mass Index 30.9 Const General: cooperative, comfortable and no acute distress Orientation/consciousness: patient oriented x3 HENMT Other: Unremarkable Neck Neck: Yes normal visual inspection Chest Chest palpation & inspection: normal inspection of the chest Resp Auscultation: clear to auscultation bilaterally, crackles (inspiratory crackles bilaterally) and no wheezes Cardio Jugular venous distension: no JVD Palpation: normal PMI Heart sounds: S1 normal heart sound present, S2 normal heart sound present, no gallops, no murmurs and no rubs GI Palpation (GI): Soft to palpation Back/Spine/Pelvis Other: unremarkable Skin General skin exam: no rashes or lesions noted Neuro General: patient oriented x3 Extrem General: Yes edema (1+ edema) Psych Mental Status: mental status grossly normal Results Labs and Meds Result diagrams: 05/02/21 05:34 05/06/21 05:25 Lab results: Laboratory Results - last 24 hr 05/05/21 05/05/21 05/05/21 10:54 16:07 20:05 Sodium Potassium Chloride Carbon Dioxide Anion Gap BUN Creatinine Estim Creat Clear Calc Estimated GFR POC Glucose 145 H 106 169 H Random Glucose Calcium B-Natriuretic Peptide 05/06/21 05/06/21 05/06/21 04:29 05:25 05:26 Sodium 136 Potassium 4.2 Chloride 99 Carbon Dioxide 24 Anion Gap 17 BUN 61 H Creatinine 2.38 H Estim Creat Clear Calc 25.3 Estimated GFR 27 POC Glucose 82 Random Glucose 152 H Calcium 8.8 B-Natriuretic Peptide 926 H 05/06/21 07:19 Sodium Potassium Chloride Carbon Dioxide Anion Gap BUN Creatinine Estim Creat Clear Calc Estimated GFR POC Glucose 92 Random Glucose Calcium B-Natriuretic Peptide Progress Note: A&P Assessment and plan (1) Acute on chronic combined systolic (congestive) and diastolic (congestive) heart failure: Status: Acute (2) New onset a-fib: Status: Acute Assessment and Plan: On the repeat echocardiogram, LVEF is worse than on the initial study. Possibly related to myocardial stunning. He is on the Lasix drip but creatinine is beginning to go up. He is so far negative -5.2 L in fluid balance. We could h old the drip today and switch to IV Lasix b.i.d. possibly with some metolazone. Continue amiodarone and Eliquis. Prognosis guarded. Fall Risk Details Current Medications: Current Medications Generic Name Dose Route Start Last Admin Trade Name Freq PRN Reason Stop Dose Admin Acetaminophen 650 mg 05/01/21 02:04 05/04/21 04:21 Acetaminophen 325 Mg Tablet PO 650 mg Q6H PRN Administration Pain, Mild (Pain Scale 1-3) Albuterol Sulfate 2 puff 05/01/21 15:06 05/04/21 22:26 Albuterol Sulfate 90 Mcg 8 Gm Inhaler INHALE 2 puff Q6H PRN Administration Shortness Of Breath Amiodarone HCl 200 mg 05/02/21 13:20 05/06/21 09:02 Amiodarone Hcl 200 Mg Tablet PO 200 mg BID KIM Administration Apixaban 5 mg 05/05/21 09:00 05/06/21 09:02 Apixaban 5 Mg Tablet PO 5 mg Q12H KIM Administration Atorvastatin Calcium 40 mg 05/01/21 21:00 05/05/21 21:10 Atorvastatin Calcium 40 Mg Tablet PO 40 mg BEDTIME KIM Administration Furosemide 200 mg/ Sodium 100 mls @ 2.5 mls/hr 05/04/21 14:30 05/05/21 14:52 Chloride IVCONT 5 mg/hr .Q24H KIM 2.5 mls/hr Administration 5 MG/HR Insulin Glargine 12 unit 05/01/21 21:00 05/05/21 21:10 Insulin Glargine,Hum.Rec.Anlog 100 Unit/Ml 10 Ml Vial SUBCUT 12 unit BEDTIME [facility] Administration Insulin Human Lispro 0 unit 05/01/21 07:30 05/06/21 08:18 Insulin Lispro 100 Unit/Ml 3 Ml Vial SUBCUT Not Given QIDACHS [facility] Protocol Magnesium Hydroxide 30 ml 05/01/21 02:04 Milk Of Magnesia 30 Ml Oral.Susp PO DAILY PRN Constipation Metoprolol Tartrate 50 mg 05/03/21 21:00 05/06/21 09:02 Metoprolol Tartrate 50 Mg Tablet PO 50 mg BID [facility] Administration Protocol Sodium Chloride 3 ml 05/01/21 08:00 05/06/21 08:25 0.9 % Sodium Chloride Flush 3 Ml Syringe IVFLUSH 3 ml QSHIFT [facility] Administration Vitamin D 50 mcg 05/02/21 12:00 05/05/21 12:06 Cholecalciferol (Vitamin D3) 25 Mcg Tablet PO 50 mcg DAILY@1200 [facility] Administration Time Spent With Patient Time: Total time spent is greater than 50% in coordination of care (as documented) at patient's floor/unit and/or counseling patient: Time with patient: less than 15 minutes Procedures Date of Service Date of Service: 05/06/21
[2021-05-06 11:24] LABS: Glucose, Whole Blood 119 mg/dL (60-115)
--- NOTE | 2021-05-06 12:04 | HO.PM.IMPN ---
Subjective Subjective Date of Service: 05/06/21 Interval History: follow-up heart failure, atrial fibrillation breathing is better at night less edema Physical Exam Vital Signs: Vital Signs: Last Vital Signs Temp 97.4 F 05/06/21 07:40 Pulse 60 05/06/21 11:33 Resp 20 05/06/21 11:33 BP 107/63 05/06/21 11:33 Pulse Ox 99 05/06/21 11:33 Body Mass Index 30.9 Appearing in no acute distress lung sounds are clear/dim heart regular rate rhythm, clear S1, S2 positive bowel sounds, abdomen is soft, nontender neuro patient is alert x3, no focal deficits Objective Data Current Medications Generic Name Dose Route Start Last Admin Trade Name Freq PRN Reason Stop Dose Admin Acetaminophen 650 mg 05/01/21 02:04 05/04/21 04:21 Acetaminophen 325 Mg Tablet PO 650 mg Q6H PRN Administration Pain, Mild (Pain Scale 1-3) Albuterol Sulfate 2 puff 05/01/21 15:06 05/04/21 22:26 Albuterol Sulfate 90 Mcg 8 Gm Inhaler INHALE 2 puff Q6H PRN Administration Shortness Of Breath Amiodarone HCl 200 mg 05/02/21 13:20 05/06/21 09:02 Amiodarone Hcl 200 Mg Tablet PO 200 mg BID KIM Administration Apixaban 5 mg 05/05/21 09:00 05/06/21 09:02 Apixaban 5 Mg Tablet PO 5 mg Q12H KIM Administration Atorvastatin Calcium 40 mg 05/01/21 21:00 05/05/21 21:10 Atorvastatin Calcium 40 Mg Tablet PO 40 mg BEDTIME KIM Administration Furosemide 200 mg/ Sodium 100 mls @ 2.5 mls/hr 05/04/21 14:30 05/05/21 14:52 Chloride IVCONT 5 mg/hr .Q24H KIM 2.5 mls/hr Administration 5 MG/HR Insulin Glargine 12 unit 05/01/21 21:00 05/05/21 21:10 Insulin Glargine,Hum.Rec.Anlog 100 Unit/Ml 10 Ml Vial SUBCUT 12 unit BEDTIME KIM Administration Insulin Human Lispro 0 unit 05/01/21 07:30 05/06/21 11:45 Insulin Lispro 100 Unit/Ml 3 Ml Vial SUBCUT Not Given QIDACHS KIM Protocol Magnesium Hydroxide 30 ml 05/01/21 02:04 Milk Of Magnesia 30 Ml Oral.Susp PO DAILY PRN Constipation Metoprolol Tartrate 50 mg 05/03/21 21:00 05/06/21 09:02 Metoprolol Tartrate 50 Mg Tablet PO 50 mg BID [facility] Administration Protocol Sodium Chloride 3 ml 05/01/21 08:00 05/06/21 08:25 0.9 % Sodium Chloride Flush 3 Ml Syringe IVFLUSH 3 ml QSHIFT [facility] Administration Vitamin D 50 mcg 05/02/21 12:00 05/05/21 12:06 Cholecalciferol (Vitamin D3) 25 Mcg Tablet PO 50 mcg DAILY@1200 [facility] Administration Labs CBC & Chem 7: 05/02/21 05:34 05/06/21 05:25 Labs: Laboratory Results - last 24 hr 05/05/21 05/05/21 05/06/21 16:07 20:05 04:29 Sodium Potassium Chloride Carbon Dioxide Anion Gap BUN Creatinine Estim Creat Clear Calc Estimated GFR POC Glucose 106 169 H 82 Random Glucose Calcium B-Natriuretic Peptide 05/06/21 05/06/21 05/06/21 05:25 05:26 07:19 Sodium 136 Potassium 4.2 Chloride 99 Carbon Dioxide 24 Anion Gap 17 BUN 61 H Creatinine 2.38 H Estim Creat Clear Calc 25.3 Estimated GFR 27 POC Glucose 92 Random Glucose 152 H Calcium 8.8 B-Natriuretic Peptide 926 H 05/06/21 11:13 Sodium Potassium Chloride Carbon Dioxide Anion Gap BUN Creatinine Estim Creat Clear Calc Estimated GFR POC Glucose 119 H Random Glucose Calcium B-Natriuretic Peptide Assessment and Plan (1) Acute on chronic combined systolic (congestive) and diastolic (congestive) heart failure: Status: Acute Assessment and Plan: This is a 76-year-old male with a past medical history of hypertension, hyperlipidemia, diabetes, coronary artery disease, CHF, CKD, gout presented to the hospital with a chief complaint of shortness of breath/abnormal EKG. Noted to have new onset AFib and mild CHF. Admitted for further management. Acute on chronic combined systolic and diastolic heart failure presented with dyspnea, orthopnea, PND. Likely precipitated by AFib Echo from 04/11 with EF 40%, grade 2 diastolic dysfunction, repeat on 05/05 EF 15-20% BNP continuing to trend up, although net negative 2.5L thus far shortness of breath at night has improved.-5.2liters - stop Lasix drip , switch to 80 mg of Lasix b.i.d. with metolazone - Daily weights and I's and O's. - follow bnp New onset AFib status post cardioversion -metoprolol q6h, monitor heart rate. -Chadsvasc score 4, initially started on heparin drip, changed to Eliquis Elevated troponin. No chest pain likely secondary to heart failure and atrial fibrillation likely demand related, trops elevated but flat. no chest pain -cardiology following MORTEZA on CKD, improving, likely cardiorenal diuresing -Follow BMP Transaminitis. Secondary to congestion from heart failure VTACH. 15 beat run 05/04/21 no further episodes -Check Lytes, mag and trop -QTC -discuss with cardio Diabetes -continue lantus (converted from toujeo), SSI 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 Blood pressure under adequate control -continue lisinpril, metoprolol HLD -continue statin SRINIVASA -cpap DVT prophylaxis: Eliquis Code status: Full code attending: Dr. Venegas
[2021-05-06] MEDS: Cholecalciferol (Vitamin D3) 25 MCG TABLET 50 MCG PO (12:27)
[2021-05-06] MEDS: ondansetron HCL 4 MG/2 ML VIAL IVPUSH (13:15)
[2021-05-06 16:15] LABS: Glucose, Whole Blood 116 mg/dL (60-115)
[2021-05-06] MEDS: Furosemide 100 MG/10 ML VIAL 80 MG IVPUSH (18:27)
[2021-05-06 20:29] LABS: Glucose, Whole Blood 176 mg/dL (60-115)
[2021-05-06] MEDS: Insulin Glargine,Hum.rec.anlog 100 UNIT/ML 10 ML VIAL 12 UNIT SUBCUT (21:14)
[2021-05-06] MEDS: Atorvastatin Calcium 40 MG TABLET PO (21:14)
[2021-05-07] VITALS (11 sets, daily range): BP systolic 100–137; BP diastolic 55–76; PULSE 55–79; RESP 16–20; TEMP 36.1–36.6; O2SAT 97–100
[2021-05-07 07:08] LABS: Hematocrit 36.7 % (42-52); Hemoglobin 11.4 g/dl (14.0-18.0); Mean Corpuscular HGB Conc 31.1 g/dl (31.0-36.0); Mean Corpuscular Hemoglobin 27.6 pg (27.0-33.0); Mean Corpuscular Volume 88.9 fL (80-98); Mean Platelet Volume 11.7 fL (9.4-12.4); Platelet Count 175 X10*3/uL (160-400); Red Blood Count 4.13 X10*6/uL (4.60-5.80); Red Cell Distribution Width 15.2 % (11.0-16.0); White Blood Count 9.3 X10*3/uL (4.8-10.8)
[2021-05-07 07:17] LABS: Glucose, Whole Blood 109 mg/dL (60-115)
[2021-05-07 07:33] LABS: Anion Gap 18 (12-20); Blood Urea Nitrogen 66 mg/dL (9-16); Calcium 8.7 mg/dL (8.4-10.2); Carbon Dioxide 24 mmol/L (22-29); Chloride 97 mmol/L (96-108); Creatinine Clr Calc Pharmacy 23.3; Estimated Glomerular Filt Rate 24; Glucose Random 120 mg/dL (60-115); Potassium 4.3 mmol/L (3.3-5.1); Sodium 135 mmol/L (135-145)
[2021-05-07 07:39] LABS: B Type Natriuretic Peptide 863 pg/mL (<100)
[2021-05-07] MEDS: Metoprolol Tartrate 50 MG TABLET PO ×2 (09:04→20:34)
[2021-05-07] MEDS: Furosemide 100 MG/10 ML VIAL 80 MG IVPUSH ×2 (09:04→16:59)
[2021-05-07] MEDS: Amiodarone HCL 200 MG TABLET PO ×2 (09:04→20:34)
[2021-05-07] MEDS: Apixaban 5 MG TABLET PO ×2 (09:04→20:34)
[2021-05-07] MEDS: 0.9 % Sodium Chloride Flush 3 ML SYRINGE IVFLUSH ×3 (09:04→23:21)
--- NOTE | 2021-05-07 09:20 | P.PNIM_ITS ---
Subjective Subjective Date of Service: 05/07/21 Interval History: seen and examined this AM feeling better slowly breathing still not at [facility] yet ROS General - no fevers or chills Cardiovascular - no chest pain Respiratory - +LYN Abdominal- no abdominal pain, nausea, vomiting, diarrhea Physical Exam Vital Signs: Vital Signs: Last Vital Signs Temp 97.6 F 05/07/21 07:30 Pulse 61 05/07/21 09:04 Resp 20 05/07/21 07:30 BP 113/66 05/07/21 09:04 Pulse Ox 100 05/07/21 07:30 Body Mass Index 30.9 Const: Other: General - no acute distress, appears comfortable Cardiovascular - s2s2, 2+ edema bilaterally Lungs - dim Abdomen - soft, nontender, no rebound or guarding Extremities - no edema bilaterally Neuro - awake and alert, no focal deficits Objective Data Current Medications Generic Name Dose Route Start Last Admin Trade Name Freq PRN Reason Stop Dose Admin Acetaminophen 650 mg 05/01/21 02:04 05/04/21 04:21 Acetaminophen 325 Mg Tablet PO 650 mg Q6H PRN Administration Pain, Mild (Pain Scale 1-3) Albuterol Sulfate 2 puff 05/01/21 15:06 05/04/21 22:26 Albuterol Sulfate 90 Mcg 8 Gm Inhaler INHALE 2 puff Q6H PRN Administration Shortness Of Breath Amiodarone HCl 200 mg 05/02/21 13:20 05/07/21 09:04 Amiodarone Hcl 200 Mg Tablet PO 200 mg BID KIM Administration Apixaban 5 mg 05/05/21 09:00 05/07/21 09:04 Apixaban 5 Mg Tablet PO 5 mg Q12H KIM Administration Atorvastatin Calcium 40 mg 05/01/21 21:00 05/06/21 21:14 Atorvastatin Calcium 40 Mg Tablet PO 40 mg BEDTIME KIM Administration Furosemide 80 mg 05/06/21 18:00 05/07/21 09:04 Furosemide 100 Mg/10 Ml Vial IVPUSH 80 mg BID@0900,1800 KIM Administration Protocol Insulin Glargine 12 unit 05/01/21 21:00 05/06/21 21:14 Insulin Glargine,Hum.Rec.Anlog 100 Unit/Ml 10 Ml Vial SUBCUT 12 unit BEDTIME KIM Administration Insulin Human Lispro 0 unit 05/01/21 07:30 05/07/21 07:22 Insulin Lispro 100 Unit/Ml 3 Ml Vial SUBCUT Not Given QIDACHS [facility] Protocol Magnesium Hydroxide 30 ml 05/01/21 02:04 Milk Of Magnesia 30 Ml Oral.Susp PO DAILY PRN Constipation Metoprolol Tartrate 50 mg 05/03/21 21:00 05/07/21 09:04 Metoprolol Tartrate 50 Mg Tablet PO 50 mg BID [facility] Administration Protocol Ondansetron HCl 4 mg 05/06/21 12:33 05/06/21 13:15 Ondansetron Hcl 4 Mg/2 Ml Vial IVPUSH 4 mg Q6H PRN Administration Nausea and Vomiting Sodium Chloride 3 ml 05/01/21 08:00 05/07/21 09:04 0.9 % Sodium Chloride Flush 3 Ml Syringe IVFLUSH 3 ml QSHIFT [facility] Administration Vitamin D 50 mcg 05/02/21 12:00 05/06/21 12:27 Cholecalciferol (Vitamin D3) 25 Mcg Tablet PO 50 mcg DAILY@1200 [facility] Administration Labs CBC & Chem 7: 05/07/21 05:44 05/07/21 05:44 Labs: Laboratory Results - last 24 hr 05/06/21 05/06/21 05/06/21 11:13 16:08 20:25 WBC RBC Hgb Hct MCV MCH MCHC RDW Plt Count MPV Absolute Nucleated RBC Nucleated RBC % (auto) Sodium Potassium Chloride Carbon Dioxide Anion Gap BUN Creatinine Estim Creat Clear Calc Estimated GFR POC Glucose 119 H 116 H 176 H Random Glucose Calcium B-Natriuretic Peptide 05/07/21 05/07/21 05/07/21 05:44 05:44 05:44 WBC 9.3 RBC 4.13 L Hgb 11.4 L Hct 36.7 L MCV 88.9 MCH 27.6 MCHC 31.1 RDW 15.2 Plt Count 175 MPV 11.7 Absolute Nucleated RBC 0.000 Nucleated RBC % (auto) 0.0 Sodium 135 Potassium 4.3 Chloride 97 Carbon Dioxide 24 Anion Gap 18 BUN 66 H Creatinine 2.58 H Estim Creat Clear Calc 23.3 Estimated GFR 24 POC Glucose Random Glucose 120 H Calcium 8.7 B-Natriuretic Peptide 863 H 05/07/21 07:13 WBC RBC Hgb Hct MCV MCH MCHC RDW Plt Count MPV Absolute Nucleated RBC Nucleated RBC % (auto) Sodium Potassium Chloride Carbon Dioxide Anion Gap BUN Creatinine Estim Creat Clear Calc Estimated GFR POC Glucose 109 Random Glucose Calcium B-Natriuretic Peptide Quality Stroke Does the patient have a stroke diagnosis?: No VTE Prior VTE?: No VTE Risk Level:: Medical - moderate - high VTE Device Contraindication: N/A - Device Ordered VTE Drug Contraindication: N/A - Med Ordered Assessment and Plan (1) Acute on chronic combined systolic (congestive) and diastolic (congestive) heart failure: Status: Acute Assessment and Plan: This is a 76-year-old male with a past medical history of hypertension, hyperlipidemia, diabetes, coronary artery disease, CHF, CKD, gout presented to the hospital with a chief complaint of shortness of breath/abnormal EKG. Noted to have new onset AFib and mild CHF. Admitted for further management. Acute on chronic combined systolic and diastolic heart failure presented with dyspnea, orthopnea, PND. Likely precipitated by AFib Echo from 04/11 with EF 40%, grade 2 diastolic dysfunction, repeat on 05/05 EF 15-20% - possibly mycardial stunning post cardioversion slowly improving, transitioned from IV lasix gtt to IV push 80mg bid (output decreased last 24 hours) monitor renal function, slowly going up negative 5.6L so far New onset AFib s/p ISAÍAS cardioversion on amio / metoprolol / eliqus Elevated troponin. No chest pain likely secondary to heart failure and atrial fibrillation likely demand related, trops elevated but flat. no chest pain MORTEZA on CKD 3/4 SCr increasingly slowly monitor closely Transaminitis. Secondary to congestion from heart failure VTACH. 15 beat run 05/04/21 no further episodes keep K >4 and Mg >2 Diabetes -continue lantus (converted from toujeo), SSI 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 Blood pressure under adequate control -continue lisinpril, metoprolol HLD -continue statin SRINIVASA -cpap full code dvt pptx, eliquis
--- NOTE | 2021-05-07 10:43 | PM.PNCARD ---
Subjective Subjective Date of Service: 05/07/21 Principal diagnosis: CHF, atrial fibrillation Interval history: Patient states that he is feeling ok. Shortness of breath is improved. Off Lasix drip. Review of Systems Review of Systems Yes all other systems are reviewed and are negative Cardiovascular: Reports as per HPI, Reports no additional cardiovascular complaints, Denies acrocyanosis, Denies cool extremities, Denies painful fingertips, Denies chest pain, Denies chest pain at rest, Denies diaphoresis, Denies syncope, Denies irregular heart rhythm, Denies claudication, Denies leg edema, Denies lightheadedness, Denies palpitations and Reports dyspnea Respiratory: Reports dyspnea Denies syncope Endocrine: Denies palpitations Physical Exam Vital Signs: Last Vital Signs Temp 97.6 F 05/07/21 07:30 Pulse 61 05/07/21 09:04 Resp 20 05/07/21 07:30 BP 113/66 05/07/21 09:04 Pulse Ox 100 05/07/21 07:30 Body Mass Index 30.9 Const General: cooperative, comfortable and no acute distress Orientation/consciousness: patient oriented x3 HENMT Other: Unremarkable Neck Neck: Yes normal visual inspection Chest Chest palpation & inspection: normal inspection of the chest Resp Auscultation: clear to auscultation bilaterally, crackles (inspiratory crackles bilaterally) and no wheezes Cardio Jugular venous distension: no JVD Palpation: normal PMI Heart sounds: S1 normal heart sound present, S2 normal heart sound present, no gallops, no murmurs and no rubs GI Palpation (GI): Soft to palpation Back/Spine/Pelvis Other: unremarkable Skin General skin exam: no rashes or lesions noted Neuro General: patient oriented x3 Extrem General: Yes edema (1+ edema) Psych Mental Status: mental status grossly normal Results Labs and Meds Result diagrams: 05/07/21 05:44 05/07/21 05:44 Lab results: Laboratory Results - last 24 hr 05/06/21 05/06/21 05/06/21 11:13 16:08 20:25 WBC RBC Hgb Hct MCV MCH MCHC RDW Plt Count MPV Absolute Nucleated RBC Nucleated RBC % (auto) Sodium Potassium Chloride Carbon Dioxide Anion Gap BUN Creatinine Estim Creat Clear Calc Estimated GFR POC Glucose 119 H 116 H 176 H Random Glucose Calcium B-Natriuretic Peptide 05/07/21 05/07/21 05/07/21 05:44 05:44 05:44 WBC 9.3 RBC 4.13 L Hgb 11.4 L Hct 36.7 L MCV 88.9 MCH 27.6 MCHC 31.1 RDW 15.2 Plt Count 175 MPV 11.7 Absolute Nucleated RBC 0.000 Nucleated RBC % (auto) 0.0 Sodium 135 Potassium 4.3 Chloride 97 Carbon Dioxide 24 Anion Gap 18 BUN 66 H Creatinine 2.58 H Estim Creat Clear Calc 23.3 Estimated GFR 24 POC Glucose Random Glucose 120 H Calcium 8.7 B-Natriuretic Peptide 863 H 05/07/21 07:13 WBC RBC Hgb Hct MCV MCH MCHC RDW Plt Count MPV Absolute Nucleated RBC Nucleated RBC % (auto) Sodium Potassium Chloride Carbon Dioxide Anion Gap BUN Creatinine Estim Creat Clear Calc Estimated GFR POC Glucose 109 Random Glucose Calcium B-Natriuretic Peptide Progress Note: A&P Assessment and plan (1) Acute on chronic combined systolic (congestive) and diastolic (congestive) heart failure: Status: Acute (2) New onset a-fib: Status: Acute Assessment and Plan: On the repeat echocardiogram, LVEF is worse than on the initial study. Possibly related to myocardial stunning related to cardioversion. Off Lasix drip. Start IV Lasix 80mg bid. Possibly switch to PO tomorrow. He is so far negative -5.7L in fluid balance. Continue amiodarone and Eliquis. Prognosis guarded. Fall Risk Details Current Medications: Current Medications Generic Name Dose Route Start Last Admin Trade Name Freq PRN Reason Stop Dose Admin Acetaminophen 650 mg 05/01/21 02:04 05/04/21 04:21 Acetaminophen 325 Mg Tablet PO 650 mg Q6H PRN Administration Pain, Mild (Pain Scale 1-3) Albuterol Sulfate 2 puff 05/01/21 15:06 05/04/21 22:26 Albuterol Sulfate 90 Mcg 8 Gm Inhaler INHALE 2 puff Q6H PRN Administration Shortness Of Breath Amiodarone HCl 200 mg 05/02/21 13:20 05/07/21 09:04 Amiodarone Hcl 200 Mg Tablet PO 200 mg BID KIM Administration Apixaban 5 mg 05/05/21 09:00 05/07/21 09:04 Apixaban 5 Mg Tablet PO 5 mg Q12H KIM Administration Atorvastatin Calcium 40 mg 05/01/21 21:00 05/06/21 21:14 Atorvastatin Calcium 40 Mg Tablet PO 40 mg BEDTIME KIM Administration Furosemide 80 mg 05/06/21 18:00 05/07/21 09:04 Furosemide 100 Mg/10 Ml Vial IVPUSH 80 mg BID@0900,1800 [facility] Administration Protocol Insulin Glargine 12 unit 05/01/21 21:00 05/06/21 21:14 Insulin Glargine,Hum.Rec.Anlog 100 Unit/Ml 10 Ml Vial SUBCUT 12 unit BEDTIME KIM Administration Insulin Human Lispro 0 unit 05/01/21 07:30 05/07/21 07:22 Insulin Lispro 100 Unit/Ml 3 Ml Vial SUBCUT Not Given QIDACHS [facility] Protocol Magnesium Hydroxide 30 ml 05/01/21 02:04 Milk Of Magnesia 30 Ml Oral.Susp PO DAILY PRN Constipation Metoprolol Tartrate 50 mg 05/03/21 21:00 05/07/21 09:04 Metoprolol Tartrate 50 Mg Tablet PO 50 mg BID [facility] Administration Protocol Ondansetron HCl 4 mg 05/06/21 12:33 05/06/21 13:15 Ondansetron Hcl 4 Mg/2 Ml Vial IVPUSH 4 mg Q6H PRN Administration Nausea and Vomiting Sodium Chloride 3 ml 05/01/21 08:00 05/07/21 09:04 0.9 % Sodium Chloride Flush 3 Ml Syringe IVFLUSH 3 ml QSHIFT [facility] Administration Vitamin D 50 mcg 05/02/21 12:00 05/06/21 12:27 Cholecalciferol (Vitamin D3) 25 Mcg Tablet PO 50 mcg DAILY@1200 [facility] Administration Time Spent With Patient Time: Total time spent is greater than 50% in coordination of care (as documented) at patient's floor/unit and/or counseling patient: Time with patient: less than 15 minutes Progress Note: Quality Stroke Does the patient have a stroke diagnosis?: No VTE Prior VTE?: No VTE Risk Level:: Medical - moderate - high VTE Device Contraindication: N/A - Device Ordered VTE Drug Contraindication: N/A - Med Ordered Procedures Date of Service Date of Service: 05/07/21
[2021-05-07 11:13] LABS: Glucose, Whole Blood 118 mg/dL (60-115)
--- NOTE | 2021-05-07 11:20 | MHC.CM.PN ---
per medical rounds pt would benefit from a vna when dcd for his chf dc in 1 to 2 days
[2021-05-07] MEDS: Cholecalciferol (Vitamin D3) 25 MCG TABLET 50 MCG PO (13:10)
[2021-05-07 16:23] LABS: Glucose, Whole Blood 102 mg/dL (60-115)
[2021-05-07 20:08] LABS: Glucose, Whole Blood 132 mg/dL (60-115)
[2021-05-07] MEDS: Insulin Glargine,Hum.rec.anlog 100 UNIT/ML 10 ML VIAL 12 UNIT SUBCUT (20:33)
[2021-05-07] MEDS: Atorvastatin Calcium 40 MG TABLET PO (20:34)
[2021-05-08] VITALS (10 sets, daily range): BP systolic 108–118; BP diastolic 61–71; PULSE 55–74; RESP 18–24; TEMP 36.4–36.7; O2SAT 97–100; BMI 30.7
[2021-05-08 05:17] LABS: Anion Gap 16 (12-20); Blood Urea Nitrogen 67 mg/dL (9-16); Calcium 8.6 mg/dL (8.4-10.2); Carbon Dioxide 26 mmol/L (22-29); Chloride 100 mmol/L (96-108); Creatinine Clr Calc Pharmacy 26.5; Estimated Glomerular Filt Rate 28; Glucose Random 91 mg/dL (60-115); Potassium 3.7 mmol/L (3.3-5.1); Sodium 138 mmol/L (135-145)
[2021-05-08 07:13] LABS: Glucose, Whole Blood 68 mg/dL (60-115)
[2021-05-08] MEDS: Apixaban 5 MG TABLET PO ×2 (08:28→20:56)
[2021-05-08] MEDS: Amiodarone HCL 200 MG TABLET PO ×2 (08:28→20:56)
[2021-05-08] MEDS: Metoprolol Tartrate 50 MG TABLET PO ×2 (08:28→20:56)
[2021-05-08] MEDS: Furosemide 100 MG/10 ML VIAL 80 MG IVPUSH ×2 (08:29→16:36)
[2021-05-08] MEDS: 0.9 % Sodium Chloride Flush 3 ML SYRINGE IVFLUSH ×3 (08:29→20:57)
--- NOTE | 2021-05-08 11:01 | PM.PNCARD ---
Subjective Subjective Date of Service: 05/08/21 Principal diagnosis: CHF, atrial fibrillation Interval history: States he is feeling better Review of Systems Review of Systems Yes all other systems are reviewed and are negative Cardiovascular: Reports as per HPI, Reports no additional cardiovascular complaints, Denies acrocyanosis, Denies cool extremities, Denies painful fingertips, Denies chest pain, Denies chest pain at rest, Denies diaphoresis, Denies syncope, Denies irregular heart rhythm, Denies claudication, Denies leg edema, Denies lightheadedness, Denies palpitations and Reports dyspnea Respiratory: Reports dyspnea Denies syncope Endocrine: Denies palpitations Physical Exam Vital Signs: Last Vital Signs Temp 97.5 F 05/08/21 07:25 Pulse 66 05/08/21 08:28 Resp 20 05/08/21 07:25 BP 113/63 05/08/21 08:28 Pulse Ox 98 05/08/21 07:25 Body Mass Index 30.7 Const General: cooperative, comfortable and no acute distress Orientation/consciousness: patient oriented x3 HENMT Other: Unremarkable Neck Neck: Yes normal visual inspection Chest Chest palpation & inspection: normal inspection of the chest Resp Auscultation: clear to auscultation bilaterally, crackles (inspiratory crackles bilaterally) and no wheezes Cardio Jugular venous distension: no JVD Palpation: normal PMI Heart sounds: S1 normal heart sound present, S2 normal heart sound present, no gallops, no murmurs and no rubs GI Palpation (GI): Soft to palpation Back/Spine/Pelvis Other: unremarkable Skin General skin exam: no rashes or lesions noted Neuro General: patient oriented x3 Extrem General: Yes edema (1+ edema) Psych Mental Status: mental status grossly normal Results Labs and Meds Result diagrams: 05/07/21 05:44 05/08/21 04:32 Lab results: Laboratory Results - last 24 hr 05/07/21 05/07/21 05/07/21 11:10 16:20 20:03 Sodium Potassium Chloride Carbon Dioxide Anion Gap BUN Creatinine Estim Creat Clear Calc Estimated GFR POC Glucose 118 H 102 132 H Random Glucose Calcium Magnesium 05/08/21 05/08/21 05/08/21 04:32 04:32 07:09 Sodium 138 Potassium 3.7 Chloride 100 Carbon Dioxide 26 Anion Gap 16 BUN 67 H Creatinine 2.27 H Estim Creat Clear Calc 26.5 Estimated GFR 28 POC Glucose 68 Random Glucose 91 Calcium 8.6 Magnesium 2.0 Progress Note: A&P Assessment and plan (1) Acute on chronic combined systolic (congestive) and diastolic (congestive) heart failure: Status: Acute (2) New onset a-fib: Status: Acute Assessment and Plan: On the repeat echocardiogram, LVEF is worse than on the initial study. Possibly related to myocardial stunning related to cardioversion. Off Lasix drip. On IV Lasix 80mg bid. Still volume overloaded. Add Metolazone. He is so far negative -6.2L in fluid balance. Continue amiodarone and Eliquis. Prognosis guarded. Fall Risk Details Current Medications: Current Medications Generic Name Dose Route Start Last Admin Trade Name Freq PRN Reason Stop Dose Admin Acetaminophen 650 mg 05/01/21 02:04 05/04/21 04:21 Acetaminophen 325 Mg Tablet PO 650 mg Q6H PRN Administration Pain, Mild (Pain Scale 1-3) Albuterol Sulfate 2 puff 05/01/21 15:06 05/04/21 22:26 Albuterol Sulfate 90 Mcg 8 Gm Inhaler INHALE 2 puff Q6H PRN Administration Shortness Of Breath Amiodarone HCl 200 mg 05/02/21 13:20 05/08/21 08:28 Amiodarone Hcl 200 Mg Tablet PO 200 mg BID KIM Administration Apixaban 5 mg 05/05/21 09:00 05/08/21 08:28 Apixaban 5 Mg Tablet PO 5 mg Q12H KIM Administration Atorvastatin Calcium 40 mg 05/01/21 21:00 05/07/21 20:34 Atorvastatin Calcium 40 Mg Tablet PO 40 mg BEDTIME KIM Administration Furosemide 80 mg 05/06/21 18:00 05/08/21 08:29 Furosemide 100 Mg/10 Ml Vial IVPUSH 80 mg BID@0900,1800 KIM Administration Protocol Insulin Glargine 12 unit 05/01/21 21:00 05/07/21 20:33 Insulin Glargine,Hum.Rec.Anlog 100 Unit/Ml 10 Ml Vial SUBCUT 12 unit BEDTIME KIM Administration Insulin Human Lispro 0 unit 05/01/21 07:30 05/08/21 08:32 Insulin Lispro 100 Unit/Ml 3 Ml Vial SUBCUT Not Given QIDACHS [facility] Protocol Magnesium Hydroxide 30 ml 05/01/21 02:04 Milk Of Magnesia 30 Ml Oral.Susp PO DAILY PRN Constipation Metoprolol Tartrate 50 mg 05/03/21 21:00 05/08/21 08:28 Metoprolol Tartrate 50 Mg Tablet PO 50 mg BID KIM Administration Protocol Ondansetron HCl 4 mg 05/06/21 12:33 05/06/21 13:15 Ondansetron Hcl 4 Mg/2 Ml Vial IVPUSH 4 mg Q6H PRN Administration Nausea and Vomiting Sodium Chloride 3 ml 05/01/21 08:00 05/08/21 08:29 0.9 % Sodium Chloride Flush 3 Ml Syringe IVFLUSH 3 ml QSHIFT KIM Administration Vitamin D 50 mcg 05/02/21 12:00 05/07/21 13:10 Cholecalciferol (Vitamin D3) 25 Mcg Tablet PO 50 mcg DAILY@1200 KIM Administration Time Spent With Patient Time: Total time spent is greater than 50% in coordination of care (as documented) at patient's floor/unit and/or counseling patient: Time with patient: less than 15 minutes Progress Note: Quality Stroke Does the patient have a stroke diagnosis?: No Procedures Date of Service Date of Service: 05/08/21
[2021-05-08 11:04] LABS: Glucose, Whole Blood 203 mg/dL (60-115)
--- NOTE | 2021-05-08 11:10 | P.PNIM_ITS ---
Subjective Subjective Date of Service: 05/08/21 Interval History: seen and examined this AM feeling better slowly breathing still not at [facility] yet and LE swelling persists ROS General - no fevers or chills Cardiovascular - no chest pain Respiratory - +LYN Abdominal- no abdominal pain, nausea, vomiting, diarrhea Physical Exam Vital Signs: Vital Signs: Last Vital Signs Temp 97.5 F 05/08/21 07:25 Pulse 66 05/08/21 08:28 Resp 20 05/08/21 07:25 BP 113/63 05/08/21 08:28 Pulse Ox 98 05/08/21 07:25 Body Mass Index 30.7 Const: Other: General - no acute distress, appears comfortable Cardiovascular - s2s2, 2+ edema bilaterally Lungs - dim Abdomen - soft, nontender, no rebound or guarding Extremities - no edema bilaterally Neuro - awake and alert, no focal deficits Objective Data Current Medications Generic Name Dose Route Start Last Admin Trade Name Freq PRN Reason Stop Dose Admin Acetaminophen 650 mg 05/01/21 02:04 05/04/21 04:21 Acetaminophen 325 Mg Tablet PO 650 mg Q6H PRN Administration Pain, Mild (Pain Scale 1-3) Albuterol Sulfate 2 puff 05/01/21 15:06 05/04/21 22:26 Albuterol Sulfate 90 Mcg 8 Gm Inhaler INHALE 2 puff Q6H PRN Administration Shortness Of Breath Amiodarone HCl 200 mg 05/02/21 13:20 05/08/21 08:28 Amiodarone Hcl 200 Mg Tablet PO 200 mg BID KIM Administration Apixaban 5 mg 05/05/21 09:00 05/08/21 08:28 Apixaban 5 Mg Tablet PO 5 mg Q12H KIM Administration Atorvastatin Calcium 40 mg 05/01/21 21:00 05/07/21 20:34 Atorvastatin Calcium 40 Mg Tablet PO 40 mg BEDTIME KIM Administration Furosemide 80 mg 05/06/21 18:00 05/08/21 08:29 Furosemide 100 Mg/10 Ml Vial IVPUSH 80 mg BID@0900,1800 KIM Administration Protocol Insulin Glargine 12 unit 05/01/21 21:00 05/07/21 20:33 Insulin Glargine,Hum.Rec.Anlog 100 Unit/Ml 10 Ml Vial SUBCUT 12 unit BEDTIME KIM Administration Insulin Human Lispro 0 unit 05/01/21 07:30 05/08/21 08:32 Insulin Lispro 100 Unit/Ml 3 Ml Vial SUBCUT Not Given QIDACHS [facility] Protocol Magnesium Hydroxide 30 ml 05/01/21 02:04 Milk Of Magnesia 30 Ml Oral.Susp PO DAILY PRN Constipation Metoprolol Tartrate 50 mg 05/03/21 21:00 05/08/21 08:28 Metoprolol Tartrate 50 Mg Tablet PO 50 mg BID [facility] Administration Protocol Ondansetron HCl 4 mg 05/06/21 12:33 05/06/21 13:15 Ondansetron Hcl 4 Mg/2 Ml Vial IVPUSH 4 mg Q6H PRN Administration Nausea and Vomiting Sodium Chloride 3 ml 05/01/21 08:00 05/08/21 08:29 0.9 % Sodium Chloride Flush 3 Ml Syringe IVFLUSH 3 ml QSHIFT [facility] Administration Vitamin D 50 mcg 05/02/21 12:00 05/07/21 13:10 Cholecalciferol (Vitamin D3) 25 Mcg Tablet PO 50 mcg DAILY@1200 [facility] Administration Labs CBC & Chem 7: 05/07/21 05:44 05/08/21 04:32 Labs: Laboratory Results - last 24 hr 05/07/21 05/07/21 05/07/21 11:10 16:20 20:03 Sodium Potassium Chloride Carbon Dioxide Anion Gap BUN Creatinine Estim Creat Clear Calc Estimated GFR POC Glucose 118 H 102 132 H Random Glucose Calcium Magnesium 05/08/21 05/08/21 05/08/21 04:32 04:32 07:09 Sodium 138 Potassium 3.7 Chloride 100 Carbon Dioxide 26 Anion Gap 16 BUN 67 H Creatinine 2.27 H Estim Creat Clear Calc 26.5 Estimated GFR 28 POC Glucose 68 Random Glucose 91 Calcium 8.6 Magnesium 2.0 05/08/21 11:01 Sodium Potassium Chloride Carbon Dioxide Anion Gap BUN Creatinine Estim Creat Clear Calc Estimated GFR POC Glucose 203 H Random Glucose Calcium Magnesium Quality Stroke Does the patient have a stroke diagnosis?: No VTE Prior VTE?: No VTE Risk Level:: Medical - moderate - high VTE Device Contraindication: N/A - Device Ordered VTE Drug Contraindication: N/A - Med Ordered Assessment and Plan (1) Acute on chronic combined systolic (congestive) and diastolic (congestive) heart failure: Status: Acute Assessment and Plan: This is a 76-year-old male with a past medical history of hypertension, hyperlipidemia, diabetes, coronary artery disease, CHF, CKD, gout presented to the hospital with a chief complaint of shortness of breath/abnormal EKG. Noted to have new onset AFib and mild CHF. Admitted for further management. Acute on chronic combined systolic and diastolic heart failure presented with dyspnea, orthopnea, PND. Likely precipitated by AFib Echo from 04/11 with EF 40%, grade 2 diastolic dysfunction, repeat on 05/05 EF 15-20% - possibly myocardial stunning post cardioversion slowly improving, transitioned from IV lasix gtt to IV push 80mg bid, output has decreased -- will add 5mg metolazone today monitor renal function, slowly going up negative 6.2L New onset AFib s/p ISAÍAS cardioversion on amio / metoprolol / eliqus Elevated troponin. No chest pain likely secondary to heart failure and atrial fibrillation likely demand related, trops elevated but flat. no chest pain MORTEZA on CKD 3/4 SCr increasingly slowly monitor closely Transaminitis. Secondary to congestion from heart failure VTACH. 15 beat run 05/04/21 no further episodes keep K >4 and Mg >2 Diabetes -continue lantus (converted from toujeo), SSI 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 Blood pressure under adequate control -continue lisinpril, metoprolol HLD -continue statin SRINIVASA -cpap full code dvt pptx, eliquis dispo: Home once improved. Still needs inpatient level of care for fluid overload, so as to minimize rehospitalization for CHF>
[2021-05-08] MEDS: Insulin Lispro 100 UNIT/ML 3 ML VIAL SUBCUT ×3 (12:15→20:57)
[2021-05-08] MEDS: Cholecalciferol (Vitamin D3) 25 MCG TABLET 50 MCG PO (12:16)
[2021-05-08] MEDS: metOLazone 5 MG TABLET PO (12:16)
[2021-05-08 16:12] LABS: Glucose, Whole Blood 211 mg/dL (60-115)
[2021-05-08 20:27] LABS: Glucose, Whole Blood 240 mg/dL (60-115)
[2021-05-08] MEDS: Atorvastatin Calcium 40 MG TABLET PO (20:56)
[2021-05-08] MEDS: Insulin Glargine,Hum.rec.anlog 100 UNIT/ML 10 ML VIAL 12 UNIT SUBCUT (20:57)
[2021-05-09 03:24] VITALS: BP 123/78; PULSE 71; RESP 18; TEMP 36.7; O2SAT 100
[2021-05-09 06:00] VITALS: BMI 31.1
[2021-05-09 07:21] LABS: Glucose, Whole Blood 129 mg/dL (60-115)
[2021-05-09 07:26] VITALS: BP 119/60; PULSE 65; RESP 18; TEMP 36.6; O2SAT 99
[2021-05-09 07:28] LABS: Anion Gap 15 (12-20); Blood Urea Nitrogen 69 mg/dL (9-16); Calcium 8.5 mg/dL (8.4-10.2); Carbon Dioxide 30 mmol/L (22-29); Chloride 96 mmol/L (96-108); Estimated Glomerular Filt Rate 29; Glucose Random 133 mg/dL (60-115); Potassium 3.3 mmol/L (3.3-5.1); Sodium 138 mmol/L (135-145)
[2021-05-09 09:40] VITALS: BP 119/60; PULSE 65
[2021-05-09] MEDS: Metoprolol Tartrate 50 MG TABLET PO (09:40)
[2021-05-09] MEDS: Amiodarone HCL 200 MG TABLET PO (09:40)
[2021-05-09] MEDS: 0.9 % Sodium Chloride Flush 3 ML SYRINGE IVFLUSH (09:40)
[2021-05-09] MEDS: Apixaban 5 MG TABLET PO (09:41)
[2021-05-09] MEDS: Furosemide 100 MG/10 ML VIAL 80 MG IVPUSH (09:41)
--- NOTE | 2021-05-09 10:36 | P.DS_ITS ---
DS: Providers Provider Date of Service: 05/09/21 Date of admission: 05/01/21 02:04 Primary care physician: Miriam Gray MD Consults: 05/01/21 02:04 Consult to Cardiology Routine Consulting Provider: Eric Richardson Reason for consultation: new afib; hx CHF; High troponin 400s DS: Diagnosis Discharge Diagnosis (1) Acute on chronic combined systolic (congestive) and diastolic (congestive) heart failure: Status: Acute (2) New onset a-fib: Status: Acute (3) CKD (chronic kidney disease) stage 3, GFR 30-59 ml/min: Status: Acute (4) Nonsustained ventricular tachycardia: Status: Acute (5) Diabetes mellitus: Status: Acute DS: Medications Discharge Medications Home Medications: Home Medications Medication Instructions Recorded Confirmed atorvastatin 40 mg tablet 40 mg PO BEDTIME 10/29/20 05/01/21 cholecalciferol (vitamin D3) 50 50 mcg PO DAILY@1200 10/29/20 05/01/21 mcg (2,000 unit) capsule lisinopril 20 mg tablet 20 mg PO DAILY@1200 10/29/20 05/01/21 metoprolol succinate 25 mg 25 mg PO DAILY@1200 10/29/20 05/01/21 tablet,extended release 24 hr albuterol sulfate 90 mcg/actuation 2 puff INHALATION Q6H PRN 02/04/21 05/01/21 aerosol inhaler aspirin 81 mg tablet,delayed 81 mg PO DAILY 02/17/21 05/01/21 release Pulmicort Flexhaler 2 puff PO BID 04/11/21 05/01/21 Toudeyanira SoloStar U-300 Insulin 15 unit SUBCUT BEDTIME 04/11/21 05/01/21 potassium chloride 20 meq PO DAILY@1200 04/11/21 05/01/21 Previous Rx's Medication Instructions Recorded Humalog KwikPen Insulin 100 See Rx Instructions SUBCUT TID 30 02/04/21 unit/mL subcutaneous Days #30 ml NS exenatide microspheres 2 mg/0.85 2 mg SUBCUT QWEEK 30 Days #4.25 ml 02/04/21 mL subcutaneous auto-injector furosemide 40 mg tablet 80 mg PO BID #120 tab 03/14/21 DS: Summary Hospital Course Hospital Course: Patient presented to the hospital with signs and symptoms of acute decompensation of his baseline congestive heart failure. He was also noted to be in new onset atrial fibrillation and this was deemed likely cause. He underwent successful cardioversion after which he was started on amiodarone 200 mg twice daily to maintain sinus rhythm. He was also initiated on Eliquis 5 mg twice daily. His THI-inhibitor was held due to mild acute kidney injury. His metoprolol was increased from 25-50 mg twice daily. Patient was in significant fluid overload and was treated with IV Lasix drip as well as intermittent doses of metolazone. With these measures he had improvement in his symptoms and his fluid balance is -7 L. he will be discharged home on Lasix 80 mg twice daily, metolazone Wednesday 2.5 mg, amiodarone 20 mg twice daily, Eliquis 5 mg twice daily, metoprolol 50 mg twice daily. He will have his THI-inhibitor held for the time being which can be resumed as an outpatient. He will have repeat labs completed mid next week. Time Spent with Patient Time attestation: Total time spent providing and/or coordinating discharge services: Discharge coordination time: Greater than 30 minutes Quality: Stroke Does the patient have a stroke diagnosis?: No Physical Exam Vital Signs: Vital Signs: Last Vital Signs Temp 97.8 F 05/09/21 07:26 Pulse 65 05/09/21 09:40 Resp 18 05/09/21 07:26 BP 119/60 05/09/21 09:40 Pulse Ox 99 05/09/21 07:26 Body Mass Index 31.1 Const: Other: General - no acute distress, appears comfortable Cardiovascular - regular rate and rhythm, S1-S2 Lungs - normal respiratory effort, clear to auscultation bilaterally, no wheezing Abdomen - soft, nontender, no rebound or guarding Extremities - trace LE edema Neuro - awake and alert, no focal deficits DS: Data Data Completed and Pending Labs on day of discharge: Laboratory Results - last 24 hr 05/08/21 05/08/21 05/08/21 11:01 16:08 20:25 Sodium Potassium Chloride Carbon Dioxide Anion Gap BUN Creatinine Estim Creat Clear Calc Estimated GFR POC Glucose 203 H 211 H 240 H Random Glucose Calcium 05/09/21 05/09/21 05:34 07:11 Sodium 138 Potassium 3.3 Chloride 96 Carbon Dioxide 30 H Anion Gap 15 BUN 69 H Creatinine 2.24 H Estim Creat Clear Calc 27.0 Estimated GFR 29 POC Glucose 129 H Random Glucose 133 H D Calcium 8.5 Discharge Plan Discharge Patient Disposition: Home Health Service Discharge Diagnosis: New onset A. Fib, CHF Referrals: Miriam Gray MD [Primary Care Provider] - 1 Week Discharge Medications: New Eliquis 5 mg Tablet 5 mg PO Q12H Qty: 60 RF: 0 metoprolol tartrate 50 mg Tablet 50 mg PO BID Qty: 60 RF: 0 furosemide [Lasix] 40 mg tablet 80 mg PO BID Qty: 120 RF: 0 metolazone 2.5 mg tablet 2.5 mg PO .MWF Qty: 12 RF: 0 amiodarone 200 mg Tablet 200 mg PO BID Qty: 60 RF: 0 Continued Toujeo SoloStar U-300 Insulin 300 unit/mL (1.5 mL) insulin pen 15 unit subcut BEDTIME RF: 0 potassium chloride 20 mEq tablet,ER particles/crystals 20 meq PO DAILY@1200 RF: 0 Pulmicort Flexhaler 90 mcg/actuation aerosol powdr breath activated 2 puff PO BID RF: 0 cholecalciferol (vitamin D3) 50 mcg (2,000 unit) capsule 50 mcg PO DAILY@1200 RF: 0 atorvastatin 40 mg tablet 40 mg PO BEDTIME RF: 0 albuterol sulfate [Ventolin HFA] 90 mcg/actuation HFA aerosol inhaler 2 puff inhalation Q6H PRN (Reason: Shortness Of Breath) RF: 0 exenatide microspheres 2 mg/0.85 mL auto-injector 2 mg subcut QWEEK 30 Days Qty: 4.25 RF: 6 insulin lispro [Humalog KwikPen Insulin] 100 unit/mL insulin pen See Rx Instructions subcut TID 30 Days Qty: 30 RF: 6 aspirin [Adult Low Dose Aspirin] 81 mg tablet,delayed release (DR/EC) 81 mg PO DAILY RF: 0 Discontinued furosemide 40 mg tablet 80 mg PO BID Qty: 120 RF: 3 metoprolol succinate 25 mg tablet extended release 24 hr 25 mg PO DAILY@1200 RF: 0 lisinopril 20 mg tablet 20 mg PO DAILY@1200 RF: 0 Discharge Orders: Discharge Order (Routine); Ordered 05/09/21 Ordered By: Johnny Venegas Diet: advance to usual diet Activity on Discharge: As tolerated Stand Alone Forms: Patient Portal Discharge page Other Ambulatory Orders: Basic Metabolic Panel (Routine) Timeframe: [id number] Facility: [facility] - Location: Laboratory Ordered By: Johnny Venegas Care Plan Goals: To stay healthy and out of the hospital. Health Concerns: A. Fib CHF Plan of Treatment: Continue Amiodarone, Continue Eliquis 5mg BID, continue Metoprolol (increased to 50mg BID) Continue lasix 80 mg twice daily, Metolazone 2.5mg MWF Follow up with Cardiology clinic in 1 week Assessment: 76 yo M with a history of diastolic CHF admitted for symtomatic new onset A. Fib. Cardioverted successfully and started on amiodarone. Diursed with lasix ggt. Will be following up with the cardiology clinic in about 1 week time. Will repeat labs Mid next week.
--- NOTE | 2021-05-09 11:10 | MHC.CM.PN ---
pt dcd tody with [facility] pts family to [place] [facility]
[2021-05-09 11:16] LABS: Glucose, Whole Blood 172 mg/dL (60-115)
[2021-05-09 11:27] VITALS: BP 104/62; PULSE 54; RESP 18; TEMP 36.9; O2SAT 97
--- NOTE | 2021-05-09 11:43 | P.PNCA_ITS ---
Subjective Subjective Date of Service: 05/09/21 Principal diagnosis: CHF, atrial fibrillation Interval history: States that he is feeling better. Review of Systems Review of Systems Yes all other systems are reviewed and are negative Cardiovascular: Reports as per HPI, Reports no additional cardiovascular complaints, Denies acrocyanosis, Denies cool extremities, Denies painful fingertips, Denies chest pain, Denies chest pain at rest, Denies diaphoresis, Denies syncope, Denies irregular heart rhythm, Denies claudication, Denies leg edema, Denies lightheadedness, Denies palpitations and Reports dyspnea Respiratory: Reports dyspnea Denies syncope Endocrine: Denies palpitations Physical Exam Vital Signs: Last Vital Signs Temp 98.4 F 05/09/21 11:27 Pulse 54 05/09/21 11:27 Resp 18 05/09/21 11:27 BP 104/62 05/09/21 11:27 Pulse Ox 97 05/09/21 11:27 Body Mass Index 31.1 Const General: cooperative, comfortable and no acute distress Orientation/consciousness: patient oriented x3 HENMT Other: Unremarkable Neck Neck: Yes normal visual inspection Chest Chest palpation & inspection: normal inspection of the chest Resp Auscultation: clear to auscultation bilaterally, crackles (inspiratory crackles bilaterally) and no wheezes Cardio Jugular venous distension: no JVD Palpation: normal PMI Heart sounds: S1 normal heart sound present, S2 normal heart sound present, no gallops, no murmurs and no rubs GI Palpation (GI): Soft to palpation Back/Spine/Pelvis Other: unremarkable Skin General skin exam: no rashes or lesions noted Neuro General: patient oriented x3 Extrem General: Yes edema (1+ edema) Psych Mental Status: mental status grossly normal Results Labs and Meds Result diagrams: 05/07/21 05:44 05/09/21 05:34 Lab results: Laboratory Results - last 24 hr 05/08/21 05/08/21 05/09/21 16:08 20:25 05:34 Sodium 138 Potassium 3.3 Chloride 96 Carbon Dioxide 30 H Anion Gap 15 BUN 69 H Creatinine 2.24 H Estim Creat Clear Calc 27.0 Estimated GFR 29 POC Glucose 211 H 240 H Random Glucose 133 H D Calcium 8.5 05/09/21 05/09/21 07:11 11:11 Sodium Potassium Chloride Carbon Dioxide Anion Gap BUN Creatinine Estim Creat Clear Calc Estimated GFR POC Glucose 129 H 172 H Random Glucose Calcium Progress Note: A&P Assessment and plan (1) Acute on chronic combined systolic (congestive) and diastolic (congestive) heart failure: Status: Acute (2) New onset a-fib: Status: Acute Assessment and Plan: On the repeat echocardiogram, LVEF is worse than on the initial study. Possibly related to myocardial stunning related to cardioversion. He is so far negative -7.7L in fluid balance. Oral diuretics with Lasix and metolazone. Continue amiodarone and Eliquis. Prognosis guarded. Discharge planning. Follow-up will be arranged. Fall Risk Details Current Medications: Current Medications Generic Name Dose Route Start Last Admin Trade Name Freq PRN Reason Stop Dose Admin Acetaminophen 650 mg 05/01/21 02:04 05/04/21 04:21 Acetaminophen 325 Mg Tablet PO 650 mg Q6H PRN Administration Pain, Mild (Pain Scale 1-3) Albuterol Sulfate 2 puff 05/01/21 15:06 05/04/21 22:26 Albuterol Sulfate 90 Mcg 8 Gm Inhaler INHALE 2 puff Q6H PRN Administration Shortness Of Breath Amiodarone HCl 200 mg 05/02/21 13:20 05/09/21 09:40 Amiodarone Hcl 200 Mg Tablet PO 200 mg BID KIM Administration Apixaban 5 mg 05/05/21 09:00 05/09/21 09:41 Apixaban 5 Mg Tablet PO 5 mg Q12H KIM Administration Atorvastatin Calcium 40 mg 05/01/21 21:00 05/08/21 20:56 Atorvastatin Calcium 40 Mg Tablet PO 40 mg BEDTIME KIM Administration Furosemide 80 mg 05/06/21 18:00 05/09/21 09:41 Furosemide 100 Mg/10 Ml Vial IVPUSH 80 mg BID@0900,1800 KIM Administration Protocol Insulin Glargine 12 unit 05/01/21 21:00 05/08/21 20:57 Insulin Glargine,Hum.Rec.Anlog 100 Unit/Ml 10 Ml Vial SUBCUT 12 unit BEDTIME KIM Administration Insulin Human Lispro 0 unit 05/01/21 07:30 05/09/21 07:29 Insulin Lispro 100 Unit/Ml 3 Ml Vial SUBCUT Not Given QIDACHS [facility] Protocol Magnesium Hydroxide 30 ml 05/01/21 02:04 Milk Of Magnesia 30 Ml Oral.Susp PO DAILY PRN Constipation Metoprolol Tartrate 50 mg 05/03/21 21:00 05/09/21 09:40 Metoprolol Tartrate 50 Mg Tablet PO 50 mg BID KIM Administration Protocol Ondansetron HCl 4 mg 05/06/21 12:33 05/06/21 13:15 Ondansetron Hcl 4 Mg/2 Ml Vial IVPUSH 4 mg Q6H PRN Administration Nausea and Vomiting Sodium Chloride 3 ml 05/01/21 08:00 05/09/21 09:40 0.9 % Sodium Chloride Flush 3 Ml Syringe IVFLUSH 3 ml QSHIFT KIM Administration Vitamin D 50 mcg 05/02/21 12:00 05/08/21 12:16 Cholecalciferol (Vitamin D3) 25 Mcg Tablet PO 50 mcg DAILY@1200 KIM Administration Time Spent With Patient Time: Total time spent is greater than 50% in coordination of care (as documented) at patient's floor/unit and/or counseling patient: Time with patient: less than 15 minutes Progress Note: Quality Stroke Does the patient have a stroke diagnosis?: No Procedures Date of Service Date of Service: 05/09/21
[2021-05-09] MEDS: Cholecalciferol (Vitamin D3) 25 MCG TABLET 50 MCG PO (11:50)
[2021-05-09] MEDS: metOLazone 5 MG TABLET PO (11:50)
[2021-05-09] MEDS: Insulin Lispro 100 UNIT/ML 3 ML VIAL SUBCUT (11:50)
[2021-05-09 12:00] VITALS: O2SAT 95
--- NOTE | 2021-05-09 13:24 | P.F2F_ITS ---
Service Date Service Date: 05/09/21 Encounter Date of encounter: 05/09/21 Reasons for Services Reason for group home: medication treatment, teach disease management (CHF) and other (Draw BMP on 05/13 or 05/14, [place] to PCP [place] [facility] [place] Overseeing Care: Miriam Gray Homebound: Leaving the home is medically contraindicated at this time without the asist of a device and/or another person due th the listed conditions above and below. Certification: Based on the above findings, I certify that this patient is confined to the home and needs intermittent group home care, physical therapy and/or speech therapy, or continues to need occupational therapy. The patient is under my care, and I have initiated the establishment of the plan of care. The patient will be followed by a physician who will periodically review the plan of care.
--- NOTE | 2021-05-09 14:40 | PC.NURSE ---
Pt. seen for skin assessment. No wound or skin issues. Non pitting edema to bilateral legs. Discharge today.
== END 2021-05-09 15:05 | disposition home health service (06) | DRG 308 ==
LOC: HO.ED 05-01 01:36 → HO.EDOVER 05-01 06:02 → HO.IMC 05-01 13:28
PROVIDERS: Internal Medicine; Internal Medicine Cardiovascular Disease; Nurse Practitioner Acute Care; Physician Assistant Medical; Admitting Provider Hospitalist; Emergency Provider Emergency Medicine Emergency Medical Services; PCP Family Medicine; Visit Provider Family Medicine
PROC: 5A2204Z Restoration of Cardiac Rhythm, Single (ICD-10-PCS; principal; 2021-05-02 12:00)
DX: I48.91 Unspecified atrial fibrillation (principal); I50.43 Acute on chronic combined systolic (congestive) and diastolic (congestive) heart failure; I13.0 Hypertensive heart and chronic kidney disease with heart failure and stage 1 through stage 4 chronic kidney disease, or unspecified chronic kidney disease; I47.1 Supraventricular tachycardia; N18.30 Chronic kidney disease, stage 3 unspecified; E11.22 Type 2 diabetes mellitus with diabetic chronic kidney disease; E78.5 Hyperlipidemia, unspecified; Z20.822 Contact with and (suspected) exposure to COVID-19; Z79.4 Long term (current) use of insulin; Z79.01 Long term (current) use of anticoagulants; Z79.82 Long term (current) use of aspirin; Z79.899 Other long term (current) drug therapy
CPT/HCPCS: 36415; 71046; 80048; 80061; 80076; 82947; 83735; 83880; 84484; 85025; 85027; 85610; 85730; 87635; 92960; 93005; 93308; 93312; 94660; 99285; J1940; J2250; J2370; J2405

== ENCOUNTER → 2021-05-01 02:04 | Outpatient (BNV) | payer MEDICARE, MEDICAID, SELFPAY | PROVIDERS: Admitting Provider Hospitalist; Emergency Provider Emergency Medicine Emergency Medical Services; PCP Family Medicine; Visit Provider Hospitalist | DX: I48.91 Unspecified atrial fibrillation (principal) | CPT/HCPCS: 99499 ==

== ENCOUNTER 2021-05-13 10:51 | Outpatient (REF) | payer MEDICARE, OTHER, SELFPAY ==
[2021-05-13 13:51] LABS: Alanine Aminotransferase 34 U/L (0-40); Albumin Level 3.6 g/dL (3.5-5.0); Alkaline Phosphatase 108 U/L (39-117); Aspartate Amino Transferase 24 U/L (5-37); Blood Urea Nitrogen 74 mg/dL (9-16); Calcium 9.5 mg/dL (8.4-10.2); Chloride 87 mmol/L (96-108); Cholesterol 133 mg/dL; Estimated Glomerular Filt Rate 28; Glucose Fasting 155 mg/dL (60-99); HDL Cholesterol 34 mg/dL; LDL Cholesterol Calculated 78 mg/dl; Potassium 2.8 mmol/L (3.3-5.1); Sodium 138 mmol/L (135-145); Total Protein 6.3 g/dL (6.5-8.0); Triglycerides 108 mg/dL
[2021-05-13 14:06] LABS: Anion Gap 13 (12-20); Carbon Dioxide 41 mmol/L (22-29)
[2021-05-13 14:48] LABS: Creatinine Urine 25.95 mg/dL; Microalbumin Urine < 5.0 mg/L
[2021-05-13 14:56] LABS: Vitamin B12 1737 pg/mL (200-900)
[2021-05-14 09:06] LABS: LDL Cholesterol Direct 82 mg/dL (<100)
== END 2021-05-13 10:52 | disposition home or self-care (01) ==
LOC: HO.LAB 10:51
PROVIDERS: PCP Family Medicine; Referring Provider Family Medicine; Visit Provider Internal Medicine Endocrinology, Diabetes & Metabolism
DX: E11.65 Type 2 diabetes mellitus with hyperglycemia (principal); E11.42 Type 2 diabetes mellitus with diabetic polyneuropathy; E78.5 Hyperlipidemia, unspecified; E66.9 Obesity, unspecified; Z68.28 Body mass index [BMI] 28.0-28.9, adult; I10 Essential (primary) hypertension; Z79.4 Long term (current) use of insulin; Z71.3 Dietary counseling and surveillance
CPT/HCPCS: 36415; 80053; 80061; 82043; 82607; 82947; 83721; 99212

== ENCOUNTER → 2021-05-14 15:21 | Outpatient (BNVA) | payer MEDICARE, OTHER, SELFPAY | PROVIDERS: PCP Family Medicine; Referring Provider Family Medicine; Visit Provider Nurse Practitioner Family | DX: I50.43 Acute on chronic combined systolic (congestive) and diastolic (congestive) heart failure (principal); I42.9 Cardiomyopathy, unspecified; I48.91 Unspecified atrial fibrillation; I47.2 Ventricular tachycardia; I25.10 Atherosclerotic heart disease of native coronary artery without angina pectoris | CPT/HCPCS: 93005; 99212 ==

== ENCOUNTER 2021-05-16 08:57 | Outpatient (REF) | payer MEDICARE, MEDICAID, SELFPAY ==
[2021-05-16 10:38] LABS: B Type Natriuretic Peptide 1102 pg/mL (<100)
[2021-05-16 10:39] LABS: Anion Gap 16 (12-20); Blood Urea Nitrogen 73 mg/dL (9-16); Calcium 9.3 mg/dL (8.4-10.2); Carbon Dioxide 34 mmol/L (22-29); Chloride 91 mmol/L (96-108); Estimated Glomerular Filt Rate 26; Glucose Random 246 mg/dL (60-115); Potassium 4.2 mmol/L (3.3-5.1); Sodium 137 mmol/L (135-145)
== END 2021-05-16 08:58 | disposition home or self-care (01) ==
LOC: HO.LAB 08:57
PROVIDERS: PCP Family Medicine; Visit Provider Nurse Practitioner Family
DX: I50.9 Heart failure, unspecified (principal); I42.9 Cardiomyopathy, unspecified
CPT/HCPCS: 36415; 80048; 83880

== ENCOUNTER 2021-05-31 08:17 | Emergency (ER) | payer MEDICARE, OTHER, SELFPAY ==
[2021-05-31 08:50] VITALS: BP 130/84; PULSE 125; RESP 16; TEMP 36.9; O2SAT 100; BMI 28.3
--- NOTE | 2021-05-31 08:54 | ECG_ITS ---
Test Reason : TACHYCARDIA Blood Pressure : / mmHG Vent. Rate : 120 BPM Atrial Rate : 119 BPM P-R Int : 000 ms QRS Dur : 100 ms QT Int : 340 ms P-R-T Axes : 000 -61 043 degrees QTc Int : 480 ms Possible sinus tachycardia (vs Atrial firbillation) Left axis deviation Low voltage QRS Cannot rule out Anterior infarct , age undetermined Abnormal ECG When compared with ECG of 03-MAY-2021 12:34, No significant changes seen Referred By: Yoly Epstein Electronically Signed By:EMILIA COCHRAN
--- NOTE | 2021-05-31 08:55 | ED.NECK ---
HPI - Neck Pain/Injury General Chief Complaint: Neck Pain/Injury Stated Complaint: NECK PAIN Time Seen by Provider: 05/31/21 08:53 Source: patient, family, old records reviewed and director of strategic partnerships Mode of arrival: ambulatory Limitations: no limitations History of Present Illness HPI Narrative: also took himself off metoprolol without talking to his doctor because he was worried about his BP dropping he has noticed his HR has been higher - he is compliant with all other medications including his AC therapy MD complaint: neck pain Onset (ago): day(s) (3) Radiation: right lateral Severity: moderate Quality: dull and throbbing Duration: constant Relieving factors: immobilization Exacerbating factors: movement of neck Context: unknown (woke up from sleep with this 3 days ago) Associated symptoms: none Treatments prior to arrival: none Related Data Home Medications Medication Instructions Recorded Confirmed atorvastatin 40 mg tablet 40 mg PO BEDTIME 10/29/20 05/14/21 cholecalciferol (vitamin D3) 50 50 mcg PO DAILY@1200 10/29/20 05/14/21 mcg (2,000 unit) capsule albuterol sulfate 90 mcg/actuation 2 puff INHALATION Q6H PRN 02/04/21 05/14/21 aerosol inhaler aspirin 81 mg tablet,delayed 81 mg PO DAILY 02/17/21 05/14/21 release Pulmicort Flexhaler 2 puff PO BID 04/11/21 05/14/21 blood sugar diagnostic #10 ea 05/13/21 05/14/21 insulin glargine U-300 conc 300 20 unit SUBCUT BEDTIME ml 05/13/21 05/14/21 unit/mL (1.5 mL) subcutaneous pen lancets 33 gauge #100 ea 05/13/21 05/14/21 pen needle, diabetic 31 gauge x #1200 ea 05/13/21 05/14/21/16 furosemide 40 mg tablet 80 mg PO BID tab 05/14/21 05/14/21 Previous Rx's Medication Instructions Recorded amiodarone 200 mg PO BID #60 tab 05/09/21 metoprolol tartrate 50 mg PO BID #60 tab 05/09/21 Humalog KwikPen Insulin 100 See Rx Instructions SUBCUT TID 30 05/13/21 unit/mL subcutaneous Days #30 ml NS exenatide microspheres 2 mg/0.85 2 mg SUBCUT QWEEK 30 Days #4.25 ml 05/13/21 mL subcutaneous auto-injector potassium chloride 20 mEq 40 meq PO DAILY@1200 60 Days #60 05/13/21 tablet,extended release(part/cryst) tab rivaroxaban 15 mg tablet 15 mg PO DAILY #30 tab 05/21/21 hydrocodone-acetaminophen 1 tab PO Q6H PRN #12 tab 05/31/21 lidocaine 1 patch TOPICAL DAILY PRN #10 ea 05/31/21 Allergies Allergy/AdvReac Type Severity Reaction Status Date / Time No Known Allergies Allergy Verified 04/17/21 12:54 [No Known Allergies*] Review of Systems Review of Systems: Constitutional : No Fever, No Chills ENT/Mouth : No Ear Pain, No Hoarseness, No sore throat, pos neck pain Eyes: No Eye Pain, No Swelling, No Redness, No Foreign Body Cardiovascular : No Chest Pain, No SOB, pos palpitations Respiratory : No Cough, No Dyspnea Gastrointestinal : No Nausea, No Vomiting, No Diarrhea, No abdominal Pain Genitourinary : No Dysuria, No Hematuria Musculoskeletal : no joint pain, No Myalgias, No Joint Swelling Skin : No Skin lacerations, No rash Neuro : No Weakness, No Numbness, No Loss of Consciousness, No Dizziness, No Headache Psych : No Anxiety/Panic, No Depression Heme/Lymph: no easy bruising, no Lymphadenopathy Endocrine : No Polyuria, No Polydipsia All other systems reviewed and are negative [facility] [place] Past Medical History Attestation statement: The following information was validated with the patient. Medical History Acute on chronic combined systolic (congestive) and diastolic (congestive) heart failure CAD (coronary artery disease) Cardiomyopathy CKD (chronic kidney disease) stage 3, GFR 30-59 ml/min Diabetes type 2, uncontrolled Diabetic polyneuropathy associated with type 2 diabetes mellitus Dyslipidemia Essential hypertension Heart failure with preserved ejection fraction 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 longterm (current) use of insulin Obesity (BMI 30-39.9) SRINIVASA (obstructive sleep apnea) Right hand pain Surgical History Hx of cardiac catheterization Hx of colonoscopy Family History Family History Father Heart disease Diabetes mellitus Mother Diabetes mellitus Social History Social History Household Members: Spouse Housing: Condominium Do you presently have visiting nurse or other home services: No Alcohol intake: never Patient Tobacco Use Status: Never used Tobacco e-Cigarette/Vaping Use: Never Used Advance Directives: Yes Advance Directives Information Provided: No Advance Directives on File: No Advance Directives Date on File: 04/11/21 service: No Current occupational status: unemployed Physical Exam Vital Signs: Vital Signs: Last Vital Signs Temp 98.4 F 05/31/21 08:50 Pulse 109 H 05/31/21 10:36 Resp 16 05/31/21 08:50 BP 119/82 05/31/21 10:36 Pulse Ox 100 05/31/21 08:50 Body Mass Index 28.3 Appearance: Alert. Oriented X3. No acute distress. Eyes: Pupils equal, round and reactive to light. ENT: Pharynx normal. Neck: ttp along R lateral muscles with trapezius spasm no mass felt CVS: tachycardic heart rate and rhythm. Pulses normal. Respiratory: No respiratory distress. Breath sounds normal. Abdomen: Soft and nontender. Skin: Skin warm and dry. Normal skin color. Normal skin turgor. Extremities: No lower extremity edema. No calf ttp Neuro: Oriented X 3. No motor deficit. No sensory deficit. Course Course Course Narrative: troponin is elevated but his baseline is 600 to 700 likely due to tachycardia from non compliance has no CP/SOB, PO metoprolol ordered at this time HAD A LONG DISCUSSION ABOUT MED COMPLIANCE WITH HIM - I am not sure he is going to take his medications correctly his neck pain is resolved, HR 90s, discussed at minimum to call his operations examiner on Wednesday MDM - Neck Pain/Injury MDM Narrative Medical decision making narrative: 76 yo male with hx of CHF EF 35%, HTN, sinus tachycardia, SRINIVASA< CAD, DM, HLD, CKD, afib on amiodarone and xarelto - he is not compliant with his metoprolol due to he worried about his BP at home took himself off and did not notify his PCP/operations examiner and his most recent notes from cardiology 05/14 state that he was cardioverted and they increased his metoprolol as well his noncompliance with bb is likely reason for tachycardia - at this time labs, EKG and possible dilt ordered he denies CP/SOB, also his neck pain seems MSK in nature has no radicular symptoms no weakness/numbness no headaches no dizziness vision changes to suggest dissection and he is already anticoagulated - IV morphine for pain ordered Lab Data Result diagrams: 05/31/21 09:15 05/31/21 09:15 Labs: Lab Results 05/31/21 05/31/21 05/31/21 Range/Units 09:15 09:15 09:15 WBC 12.9 H (4.8-10.8) X10*3/uL RBC 4.87 (4.60-5.80) X10*6/uL Hgb 13.4 L (14.0-18.0) g/dl Hct 43.3 (42-52) % MCV 88.9 (80-98) fL MCH 27.5 (27.0-33.0) pg MCHC 30.9 L (31.0-36.0) g/dl RDW 15.4 (11.0-16.0) % Plt Count 267 D (160-400) X10*3/uL MPV 10.8 (9.4-12.4) fL Immature Gran % (Auto) 0.3 (0.0-0.4) % Neut % (Auto) 73.2 H (45-73) % Lymph % (Auto) 11.3 L (20-40) % [place] % (Auto) 13.0 H (2-11) % Eos % (Auto) 1.8 (0-4) % Baso % (Auto) 0.4 (0-2) % Lymph # (Auto) 1.5 (1.2-4.9) X10*3/uL [place] # (Auto) 1.7 H (0.1-1.2) X10*3/uL Eos # (Auto) 0.2 (0.0-0.4) X10*3/uL Baso # (Auto) 0.1 (0.0-0.2) X10*3/uL Abs Immat Gran (auto) 0.04 H (0.00-0.03) X10*3/uL Absolute Neuts (auto) 9.4 H (2.0-8.3) X10*3/uL Absolute Nucleated RBC 0.000 (0.0-0.012) X10*3/uL Nucleated RBC % (auto) 0.0 (0.0-0.2) /100WBC Smear Tech's Comments VERIFIED Sodium 137 (135-145) mmol/L Potassium 4.7 (3.3-5.1) mmol/L Chloride 96 (96-108) mmol/L Carbon Dioxide 29 (22-29) mmol/L Anion Gap 17 (12-20) BUN 41 H (9-16) mg/dL Creatinine 2.24 H (0.5-1.4) mg/dL Estim Creat Clear Calc 25.8 Estimated GFR 29 Random Glucose 189 H (60-115) mg/dL Calcium 9.6 (8.4-10.2) mg/dL Magnesium 2.2 (1.6-2.6) mg/dL Total Bilirubin 1.8 H (0.0-1.0) mg/dL Direct Bilirubin 0.8 H (0.0-0.5) mg/dL AST 18 (5-37) U/L ALT 21 (0-40) U/L Alkaline Phosphatase 86 D (39-117) U/L Troponin I High Sens (<3.5-35.0) ng/L Total Protein 6.5 (6.5-8.0) g/dL Albumin 3.6 (3.5-5.0) g/dL TSH (0.32-4.0) uIU/mL 05/31/21 05/31/21 Range/Units 09:15 09:15 WBC (4.8-10.8) X10*3/uL RBC (4.60-5.80) X10*6/uL Hgb (14.0-18.0) g/dl Hct (42-52) % MCV (80-98) fL MCH (27.0-33.0) pg MCHC (31.0-36.0) g/dl RDW (11.0-16.0) % Plt Count (160-400) X10*3/uL MPV (9.4-12.4) fL Immature Gran % (Auto) (0.0-0.4) % Neut % (Auto) (45-73) % Lymph % (Auto) (20-40) % [place] % (Auto) (2-11) % Eos % (Auto) (0-4) % Baso % (Auto) (0-2) % Lymph # (Auto) (1.2-4.9) X10*3/uL [place] # (Auto) (0.1-1.2) X10*3/uL Eos # (Auto) (0.0-0.4) X10*3/uL Baso # (Auto) (0.0-0.2) X10*3/uL Abs Immat Gran (auto) (0.00-0.03) X10*3/uL Absolute Neuts (auto) (2.0-8.3) X10*3/uL Absolute Nucleated RBC (0.0-0.012) X10*3/uL Nucleated RBC % (auto) (0.0-0.2) /100WBC Smear Tech's Comments Sodium (135-145) mmol/L Potassium (3.3-5.1) mmol/L Chloride (96-108) mmol/L Carbon Dioxide (22-29) mmol/L Anion Gap (12-20) BUN (9-16) mg/dL Creatinine (0.5-1.4) mg/dL Estim Creat Clear Calc Estimated GFR Random Glucose (60-115) mg/dL Calcium (8.4-10.2) mg/dL Magnesium (1.6-2.6) mg/dL Total Bilirubin (0.0-1.0) mg/dL Direct Bilirubin (0.0-0.5) mg/dL AST (5-37) U/L ALT (0-40) U/L Alkaline Phosphatase (39-117) U/L Troponin I High Sens 326.7 H* D (<3.5-35.0) ng/L Total Protein (6.5-8.0) g/dL Albumin (3.5-5.0) g/dL TSH 1.00 (0.32-4.0) uIU/mL ECG Data Attestation: I personally reviewed and interpreted this ECG as follows: Interpretation: Rate: 120 Rhythm: regular narrow complex tachycardia [place]: left Normal QRS complex. ST T wave : nonspecific, no YULISSA qTC: normal prior studies: changed but no acute ischemia The study has been interpreted contemporaneously by me. . Discharge Plan Discharge Clinical Impression: Tachycardia, Neck muscle spasm Patient Disposition: Home, Self-Care Instructions: Muscle Spasm (ED), Tachycardia (ED) Additional Instructions: return to ED for any worsening symptoms or concerns tome 25 mg de metoprolol al d?a si west presi?n arterial es estable. debe llamar a west cardi?logo el lunes por la ma?kristal Prescriptions: New lidocaine 4 % adhesive patch,medicated 1 patch topical DAILY PRN (Reason: pain) Qty: 10 RF: 0 hydrocodone-acetaminophen 5-325 mg tablet 1 tab PO Q6H PRN (Reason: pain) Qty: 12 RF: 0 No Action potassium chloride 20 mEq tablet,ER particles/crystals 40 meq PO DAILY@1200 60 Days Qty: 60 RF: 0 Xarelto 15 mg tablet 15 mg PO DAILY Qty: 30 RF: 5 Pulmicort Flexhaler 90 mcg/actuation aerosol powdr breath activated 2 puff PO BID RF: 0 metoprolol tartrate 50 mg Tablet 50 mg PO BID Qty: 60 RF: 0 amiodarone 200 mg Tablet 200 mg PO BID Qty: 60 RF: 0 cholecalciferol (vitamin D3) 50 mcg (2,000 unit) capsule 50 mcg PO DAILY@1200 RF: 0 atorvastatin 40 mg tablet 40 mg PO BEDTIME RF: 0 albuterol sulfate [Ventolin HFA] 90 mcg/actuation HFA aerosol inhaler 2 puff inhalation Q6H PRN (Reason: Shortness Of Breath) RF: 0 (DME) lancets 33 gauge misc See Rx Instructions ea Not Applicable QID Qty: 100 RF: 0 (DME) FreeStyle Lite Strips Strip See Rx Instructions ea Not Applicable QID Qty: 10 RF: 0 (DME) pen needle, diabetic 31 gauge x 5/16 needle See Rx Instructions ea subcut .MEDSUPPLY Qty: 1200 RF: 0 exenatide microspheres 2 mg/0.85 mL auto-injector 2 mg subcut QWEEK 30 Days Qty: 4.25 RF: 6 Toujeben SoloStar U-300 Insulin 300 unit/mL (1.5 mL) insulin pen 20 unit subcut BEDTIME RF: 0 insulin lispro [Humalog KwikPen Insulin] 100 unit/mL insulin pen See Rx Instructions subcut TID 30 Days Qty: 30 RF: 6 aspirin [Adult Low Dose Aspirin] 81 mg tablet,delayed release (DR/EC) 81 mg PO DAILY RF: 0 furosemide [Lasix] 40 mg tablet 80 mg PO BID RF: 0 Referrals: Dona Diez, [facility] [Nurse Practitioner] - 2 days (WEDNESDAY) Print Language: Armenian
[2021-05-31] MEDS: ondansetron HCL 4 MG/2 ML VIAL IVPUSH (09:20)
[2021-05-31 09:21] VITALS: BP 131/82; PULSE 117
[2021-05-31] MEDS: dilTIAZem HCL 50 MG/10 ML VIAL 10 MG IVPUSH (09:21)
[2021-05-31] MEDS: Morphine Sulfate 4 MG/ML CARTRIDGE IVPUSH (09:21)
[2021-05-31 09:22] LABS: Basophils Absolute Auto 0.1 X10*3/uL (0.0-0.2); Basophils Percent Auto 0.4 % (0-2); Eosinophils Absolute Auto 0.2 X10*3/uL (0.0-0.4); Eosinophils Percent Auto 1.8 % (0-4); Hematocrit 43.3 % (42-52); Hemoglobin 13.4 g/dl (14.0-18.0); Imm Gran Abs Auto 0.04 X10*3/uL (0.00-0.03); Imm Gran Pct Auto 0.3 % (0.0-0.4); Lymphocytes Absolute Auto 1.5 X10*3/uL (1.2-4.9); Lymphocytes Percent Auto 11.3 % (20-40); MANUAL DIFF FLAG SCAN; Mean Corpuscular HGB Conc 30.9 g/dl (31.0-36.0); Mean Corpuscular Hemoglobin 27.5 pg (27.0-33.0); Mean Corpuscular Volume 88.9 fL (80-98); Mean Platelet Volume 10.8 fL (9.4-12.4); Monocytes Absolute Auto 1.7 X10*3/uL (0.1-1.2); Neutrophils Absolute Auto 9.4 X10*3/uL (2.0-8.3); Neutrophils Percent Auto 73.2 % (45-73); Platelet Count 267 X10*3/uL (160-400); Red Blood Count 4.87 X10*6/uL (4.60-5.80); Red Cell Distribution Width 15.4 % (11.0-16.0); SCAN SMEAR FLAG 1; White Blood Count 12.9 X10*3/uL (4.8-10.8)
[2021-05-31 09:46] LABS: SLIDE REVIEW VERIFIED
[2021-05-31 09:53] LABS: Alanine Aminotransferase 21 U/L (0-40); Albumin Level 3.6 g/dL (3.5-5.0); Alkaline Phosphatase 86 U/L (39-117); Anion Gap 17 (12-20); Aspartate Amino Transferase 18 U/L (5-37); Bilirubin Direct 0.8 mg/dL (0.0-0.5); Bilirubin Total 1.8 mg/dL (0.0-1.0); Blood Urea Nitrogen 41 mg/dL (9-16); Calcium 9.6 mg/dL (8.4-10.2); Carbon Dioxide 29 mmol/L (22-29); Chloride 96 mmol/L (96-108); Creatinine Clr Calc Pharmacy 25.8; Estimated Glomerular Filt Rate 29; Glucose Random 189 mg/dL (60-115); Magnesium 2.2 mg/dL (1.6-2.6); Potassium 4.7 mmol/L (3.3-5.1); Sodium 137 mmol/L (135-145); Total Protein 6.5 g/dL (6.5-8.0)
[2021-05-31 10:00] VITALS: BP 110/68; PULSE 97
[2021-05-31 10:00] LABS: Troponin-I High Sensitivity 326.7 ng/L (<3.5-35.0)
[2021-05-31 10:36] VITALS: BP 119/82; PULSE 109
[2021-05-31] MEDS: Metoprolol Tartrate 25 MG TABLET PO (10:36)
== END 2021-05-31 11:17 | disposition home or self-care (01) ==
PROVIDERS: Emergency Provider Emergency Medicine; PCP Family Medicine
DX: M62.838 Other muscle spasm (principal); R00.0 Tachycardia, unspecified; I13.0 Hypertensive heart and chronic kidney disease with heart failure and stage 1 through stage 4 chronic kidney disease, or unspecified chronic kidney disease; I50.40 Unspecified combined systolic (congestive) and diastolic (congestive) heart failure; N18.30 Chronic kidney disease, stage 3 unspecified; E11.22 Type 2 diabetes mellitus with diabetic chronic kidney disease; Z79.01 Long term (current) use of anticoagulants; Z79.4 Long term (current) use of insulin; Z79.82 Long term (current) use of aspirin; Z79.899 Other long term (current) drug therapy; Z91.14 Patient's other noncompliance with medication regimen
CPT/HCPCS: 36415; 80048; 80076; 83735; 84443; 84484; 85025; 93005; 96374; 96375; 99284; J2270; J2405

== ENCOUNTER → 2021-06-05 12:10 | Outpatient (BNVA) | payer MEDICARE, OTHER, SELFPAY | PROVIDERS: PCP Family Medicine; Referring Provider Family Medicine; Visit Provider Internal Medicine | DX: I48.0 Paroxysmal atrial fibrillation (principal); I11.0 Hypertensive heart disease with heart failure; I50.42 Chronic combined systolic (congestive) and diastolic (congestive) heart failure; G47.33 Obstructive sleep apnea (adult) (pediatric) | CPT/HCPCS: 93005; 99212 ==

== ENCOUNTER 2021-06-26 13:32 | Inpatient (IN) | payer MEDICARE, OTHER, SELFPAY ==
--- NOTE | 2021-06-26 | ECG_ITS ---
Test Reason : GENERAL MEDICAL Blood Pressure : / mmHG Vent. Rate : 083 BPM Atrial Rate : 080 BPM P-R Int : 000 ms QRS Dur : 116 ms QT Int : 446 ms P-R-T Axes : 000 -75 073 degrees QTc Int : 524 ms Normal sinus rhythm with first degree AV block Left axis deviation Pulmonary disease pattern Incomplete left bundle branch block Nonspecific T wave abnormality Abnormal ECG When compared with ECG of 31-MAY-2021 09:09, Nonspecific T wave abnormality, worse in Inferior leads Nonspecific T wave abnormality now evident in Lateral leads Referred By: Generic ED Physician Electronically Signed By:Dax Novoa
[2021-06-26 13:41] VITALS: BP 129/64; PULSE 87; RESP 18; TEMP 36.6; O2SAT 99; BMI 28.1
[2021-06-26 16:59] VITALS: BP 127/68; PULSE 83; RESP 16; O2SAT 99
[2021-06-26 17:16] LABS: Basophils Absolute Auto 0.1 X10*3/uL (0.0-0.2); Basophils Percent Auto 0.6 % (0-2); Eosinophils Absolute Auto 0.6 X10*3/uL (0.0-0.4); Hematocrit 40.8 % (42-52); Imm Gran Abs Auto 0.04 X10*3/uL (0.00-0.03); Imm Gran Pct Auto 0.3 % (0.0-0.4); Lymphocytes Absolute Auto 2.1 X10*3/uL (1.2-4.9); Lymphocytes Percent Auto 14.9 % (20-40); MANUAL DIFF FLAG SCAN; Mean Corpuscular HGB Conc 31.9 g/dl (31.0-36.0); Mean Corpuscular Hemoglobin 27.3 pg (27.0-33.0); Mean Corpuscular Volume 85.5 fL (80-98); Mean Platelet Volume 10.9 fL (9.4-12.4); Monocytes Absolute Auto 1.6 X10*3/uL (0.1-1.2); Monocytes Percent Auto 11.2 % (2-11); Neutrophils Absolute Auto 9.7 X10*3/uL (2.0-8.3); Platelet Count 277 X10*3/uL (160-400); Red Blood Count 4.77 X10*6/uL (4.60-5.80); Red Cell Distribution Width 15.1 % (11.0-16.0); SCAN SMEAR FLAG 1; White Blood Count 14.1 X10*3/uL (4.8-10.8)
--- NOTE | 2021-06-26 17:16 | ED.GENADULT ---
HPI - General Adult General Chief complaint: Recheck/Abnormal Lab/Rx Stated complaint: Multiple complaimts Time Seen by Provider: 06/26/21 16:38 Source: patient Mode of arrival: ambulatory Limitations: no limitations History of Present Illness HPI narrative: This is a 76 years old patient presented to the emergency department with a chief complaint of abnormal lab test. He was sent here by the clinic because his potassium was low. Patient is otherwise asymptomatic. Denies any chest pain, shortness of breath Onset (ago): day(s) (1) Severity: moderate Exacerbating factors: none Associated symptoms: denies other symptoms Treatments prior to arrival: none Related Data Home Medications Medication Instructions Recorded Confirmed atorvastatin 40 mg tablet 40 mg PO BEDTIME 10/29/20 06/05/21 cholecalciferol (vitamin D3) 50 50 mcg PO DAILY@1200 10/29/20 06/05/21 mcg (2,000 unit) capsule albuterol sulfate 90 mcg/actuation 2 puff INHALATION Q6H PRN 02/04/21 06/05/21 aerosol inhaler (Ventolin HFA) budesonide 90 mcg/actuation breath 2 puff PO BID 04/11/21 06/05/21 activated powder inhaler (Pulmicort Flexhaler) blood sugar diagnostic #10 ea 05/13/21 06/05/21 insulin glargine U-300 conc 300 20 unit SUBCUT BEDTIME ml 05/13/21 06/05/21 unit/mL (1.5 mL) subcutaneous pen (Toujeo SoloStar U-300 Insulin) lancets 33 gauge #100 ea 05/13/21 06/05/21 pen needle, diabetic 31 gauge x #1200 ea 05/13/21 06/05/21/16 furosemide 40 mg tablet (Lasix) 80 mg PO BID tab 05/14/21 06/05/21 Previous Rx's Medication Instructions Recorded amiodarone 200 mg tablet 200 mg PO BID #60 tab 05/09/21 Humalog KwikPen Insulin 100 See Rx Instructions SUBCUT TID 30 05/13/21 unit/mL subcutaneous (insulin Days #30 ml NS lispro) exenatide microspheres 2 mg/0.85 2 mg SUBCUT QWEEK 30 Days #4.25 ml 05/13/21 mL subcutaneous auto-injector rivaroxaban 15 mg tablet (Xarelto) 15 mg PO DAILY #30 tab 05/21/21 hydrocodone 5 mg-acetaminophen 325 1 tab PO Q6H PRN #12 tab 05/31/21 mg tablet lidocaine 4 % topical patch 1 patch TOPICAL DAILY PRN #10 ea 05/31/21 potassium chloride 20 mEq 40 meq PO DAILY #60 tab 06/02/21 tablet,extended release(part/cryst) metoprolol succinate 25 mg 12.5 mg PO DAILY 30 Days #15 tab 06/05/21 tablet,extended release 24 hr (Toprol XL) Allergies Allergy/AdvReac Type Severity Reaction Status Date / Time No Known Allergies Allergy Verified 06/26/21 13:41 [No Known Allergies*] Review of Systems Review of Systems: Yes all other systems are reviewed and are negative Constitutional: Constitutional: Reports no additional constitutional complaints Eyes: Eyes: Denies blurry vision Cardiovascular: Cardiovascular: Reports no additional cardiovascular complaints Respiratory: Respiratory: Reports no additional respiratory complaints Gastrointestinal: Gastrointestinal: Reports no additional gastrointestinal complaints Neurologic: Reports system reviewed and no additional complaints, except as documented [facility] Past Medical History Attestation statement: The following information was validated with the patient. 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 Obesity (BMI 30-39.9) SRINIVASA (obstructive sleep apnea) Right hand pain Surgical History Hx of cardiac catheterization Hx of colonoscopy Family History Family History Father Heart disease Diabetes mellitus Mother Diabetes mellitus Social History Social History Household Members: Spouse Housing: Condominium Do you presently have visiting nurse or other home services: No Alcohol intake: never Patient Tobacco Use Status: Never used Tobacco e-Cigarette/Vaping Use: Never Used Advance Directives: No Advance Directives Information Provided: Yes Advance Directives Date on File: 04/11/21 service: No Current occupational status: unemployed Physical Exam Vital Signs: Vital Signs: Last Vital Signs Temp 98 F 06/26/21 13:41 Pulse 79 06/26/21 19:12 Resp 16 06/26/21 19:12 BP 117/60 06/26/21 19:12 Pulse Ox 99 06/26/21 19:12 Body Mass Index 28.1 Const: General: cooperative; No acute distress Nutritional Appearance: average body habitus Orientation/consciousness: oriented to person, oriented to place, oriented to time and patient oriented x3 HENMT: Head: Yes normal to inspection and Yes normocephalic Ears: hearing grossly normal bilaterally Face and sinus: Yes normal facial exam Mouth: Normal oral and palatal mucosa present and lip normal Neck: Neck: Yes normal visual inspection, Yes full ROM and Yes no lymphadenopathy Thyroid: Thyroid normal Lymphatic: no lymphadenopathy noted Chest: Chest palpation & inspection: normal inspection of the chest Resp: Effort & Inspection: normal respiratory effort Auscultation: clear to auscultation bilaterally Cardio: Jugular venous distension: no JVD Rate: regular rate Rhythm: regular rhythm GI: Inspection: Yes normal to inspection Palpation (GI): Soft to palpation, not firm, nontender, no guarding and not rigid Skin: General skin exam: no rashes or lesions noted and elasticity normal Neuro: General: oriented to person, oriented to place, oriented to time and patient oriented x3 Medical Decision Making Lab Data Result diagrams: 06/26/21 16:58 06/26/21 17:58 Labs: Lab Results 06/26/21 06/26/21 06/26/21 Range/Units 16:58 16:58 17:58 WBC 14.1 H (4.8-10.8) X10*3/uL RBC 4.77 (4.60-5.80) X10*6/uL Hgb 13.0 L (14.0-18.0) g/dl Hct 40.8 L (42-52) % MCV 85.5 (80-98) fL MCH 27.3 (27.0-33.0) pg MCHC 31.9 (31.0-36.0) g/dl RDW 15.1 (11.0-16.0) % Plt Count 277 (160-400) X10*3/uL MPV 10.9 (9.4-12.4) fL Immature Gran % (Auto) 0.3 (0.0-0.4) % Neut % (Auto) 69.0 (45-73) % Lymph % (Auto) 14.9 L (20-40) % [place] % (Auto) 11.2 H (2-11) % Eos % (Auto) 4.0 (0-4) % Baso % (Auto) 0.6 (0-2) % Lymph # (Auto) 2.1 (1.2-4.9) X10*3/uL [place] # (Auto) 1.6 H (0.1-1.2) X10*3/uL Eos # (Auto) 0.6 H (0.0-0.4) X10*3/uL Baso # (Auto) 0.1 (0.0-0.2) X10*3/uL Abs Immat Gran (auto) 0.04 H (0.00-0.03) X10*3/uL Absolute Neuts (auto) 9.7 H (2.0-8.3) X10*3/uL Absolute Nucleated RBC 0.000 (0.0-0.012) X10*3/uL Nucleated RBC % (auto) 0.0 (0.0-0.2) /100WBC Smear Tech's Comments VERIFIED Sodium 134 L (135-145) mmol/L Potassium 2.3 L* D (3.3-5.1) mmol/L Chloride 85 L (96-108) mmol/L Carbon Dioxide 35 H (22-29) mmol/L Anion Gap 16 (12-20) BUN 67 H D (9-16) mg/dL Creatinine 2.01 H (0.5-1.4) mg/dL Estim Creat Clear Calc 28.7 Estimated GFR 33 Random Glucose 164 H (60-115) mg/dL Calcium 9.1 (8.4-10.2) mg/dL Magnesium (1.6-2.6) mg/dL Total Bilirubin 1.5 H (0.0-1.0) mg/dL Direct Bilirubin 0.7 H (0.0-0.5) mg/dL AST 26 D (5-37) U/L ALT 27 (0-40) U/L Alkaline Phosphatase 113 D (39-117) U/L Troponin I High Sens 1123.3 H* D (<3.5-35.0) ng/L Total Protein 6.5 (6.5-8.0) g/dL Albumin 3.7 (3.5-5.0) g/dL Lipase 59 (8-78) U/L Urine Color Urine Appearance Urine pH (5.0-8.0) Ur Specific [place] (1.005-1.025) Urine Protein (NEG-TRACE) MG/DL Urine Glucose (UA) (NEG) MG/DL Urine Ketones (NEG) MG/DL Urine Blood (NEG) Urine Nitrite (NEG) Ur Leukocyte Esterase (NEG) Urine RBC (0) /HPF Urine WBC (0-4) /HPF Ur Squamous Epith Cells /LPF Urine Bacteria /LPF 06/26/21 06/26/21 06/26/21 Range/Units 17:58 20:39 20:39 WBC (4.8-10.8) X10*3/uL RBC (4.60-5.80) X10*6/uL Hgb (14.0-18.0) g/dl Hct (42-52) % MCV (80-98) fL MCH (27.0-33.0) pg MCHC (31.0-36.0) g/dl RDW (11.0-16.0) % Plt Count (160-400) X10*3/uL MPV (9.4-12.4) fL Immature Gran % (Auto) (0.0-0.4) % Neut % (Auto) (45-73) % Lymph % (Auto) (20-40) % [place] % (Auto) (2-11) % Eos % (Auto) (0-4) % Baso % (Auto) (0-2) % Lymph # (Auto) (1.2-4.9) X10*3/uL [place] # (Auto) (0.1-1.2) X10*3/uL Eos # (Auto) (0.0-0.4) X10*3/uL Baso # (Auto) (0.0-0.2) X10*3/uL Abs Immat Gran (auto) (0.00-0.03) X10*3/uL Absolute Neuts (auto) (2.0-8.3) X10*3/uL Absolute Nucleated RBC (0.0-0.012) X10*3/uL Nucleated RBC % (auto) (0.0-0.2) /100WBC Smear Tech's Comments Sodium (135-145) mmol/L Potassium (3.3-5.1) mmol/L Chloride (96-108) mmol/L Carbon Dioxide (22-29) mmol/L Anion Gap (12-20) BUN (9-16) mg/dL Creatinine (0.5-1.4) mg/dL Estim Creat Clear Calc Estimated GFR Random Glucose (60-115) mg/dL Calcium (8.4-10.2) mg/dL Magnesium 2.1 (1.6-2.6) mg/dL Total Bilirubin (0.0-1.0) mg/dL Direct Bilirubin (0.0-0.5) mg/dL AST (5-37) U/L ALT (0-40) U/L Alkaline Phosphatase (39-117) U/L Troponin I High Sens 1175.8 H* (<3.5-35.0) ng/L Total Protein (6.5-8.0) g/dL Albumin (3.5-5.0) g/dL Lipase (8-78) U/L Urine Color PINK Urine Appearance HAZY Urine pH 6.0 (5.0-8.0) Ur Specific [place] <= 1.005 (1.005-1.025) Urine Protein NEG (NEG-TRACE) MG/DL Urine Glucose (UA) NEG (NEG) MG/DL Urine Ketones NEG (NEG) MG/DL Urine Blood 3+ H (NEG) Urine Nitrite NEG (NEG) Ur Leukocyte Esterase NEG (NEG) Urine RBC 76-150 H (0) /HPF Urine WBC 0-2 (0-4) /HPF Ur Squamous Epith Cells TRACE /LPF Urine Bacteria NONE /LPF ECG Data Attestation: I personally reviewed and interpreted this ECG as follows: Pacemaker model: Atrial fibrillation rate 83 artifact present no ischemic changes Discharge Plan Discharge Clinical Impression: Hypokalemia Patient Disposition: Admitted As Inpatient
[2021-06-26 17:46] LABS: Troponin-I High Sensitivity 1123.3 ng/L (<3.5-35.0)
[2021-06-26 18:10] LABS: Glucose Urine UA NEG (NEG); Leukocyte Esterase Urine NEG (NEG); Nitrite Urine NEG (NEG); Specific Gravity - Urine <= 1.005 (1.005-1.025); UACC Culture Trigger NO; Urine Blood 3+ (NEG); Urine Ketones NEG (NEG); Urine Protein NEG (NEG-TRACE)
[2021-06-26 18:22] LABS: SLIDE REVIEW VERIFIED
[2021-06-26 18:33] LABS: Alanine Aminotransferase 27 U/L (0-40); Albumin Level 3.7 g/dL (3.5-5.0); Alkaline Phosphatase 113 U/L (39-117); Anion Gap 16 (12-20); Aspartate Amino Transferase 26 U/L (5-37); Bilirubin Direct 0.7 mg/dL (0.0-0.5); Bilirubin Total 1.5 mg/dL (0.0-1.0); Blood Urea Nitrogen 67 mg/dL (9-16); Calcium 9.1 mg/dL (8.4-10.2); Carbon Dioxide 35 mmol/L (22-29); Chloride 85 mmol/L (96-108); Creatinine Clr Calc Pharmacy 28.7; Estimated Glomerular Filt Rate 33; Glucose Random 164 mg/dL (60-115); Lipase 59 U/L (8-78); Potassium 2.3 mmol/L (3.3-5.1); Sodium 134 mmol/L (135-145); Total Protein 6.5 g/dL (6.5-8.0)
[2021-06-26 18:36] LABS: Appearance Urine HAZY; Color Urine PINK
[2021-06-26 18:37] LABS: Squamous Epithelial Cell Urine TRACE /LPF; WBC Urine 0-2 /HPF (0-4)
[2021-06-26] MEDS: Potassium Chloride ER 20 MEQ TAB.ER.PRT PO ×2 (19:05→19:06)
[2021-06-26] MEDS: Potassium Chloride/H20 10 MEQ/100 ML PIGGYBACK 100 MEQ IV (19:06)
[2021-06-26] MEDS: 0.9 % Sodium Chloride 1,000 ML 100 ML IVCONT (19:07)
[2021-06-26 19:12] VITALS: BP 117/60; PULSE 79; RESP 16; O2SAT 99
--- NOTE | 2021-06-26 20:39 | PM.IMHP ---
History of Present Illness Date of Service: 06/26/21 Chief Complaint: Hypokalemia , 76-year-old male with a past medical history of hypertension, hyperlipidemia, diabetes, coronary artery disease, CHF, SRINIVASA, diabetic neuropathy, AFib on Xarelto; presented to the hospital with a chief complaint of hypokalemia. Patient mentioned that he had routine labs done as outpatient today and noted to have low potassium levels and subsequently asked him to go to the ER for further evaluation. At the time of my entry patient denies any chest pain palpitations lightheadedness or dizziness. Denies any fever chills cough. Denies any nausea vomiting diarrhea. Denies any numbness tingling or focal weakness. Patient mentioned that he has fatigue and shortness of breath which has been chronic and unchanged. Denies any weight gain. Review of all other systems is negative except mentioned above ER course: Per ER physician patient's EKG was within the normal limits; potassium was like 2.3; given IV and p.o. potassium. Admitted to the hospital for further management. 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 Obesity (BMI 30-39.9) SRINIVASA (obstructive sleep apnea) Right hand pain Family History Father Heart disease Diabetes mellitus Mother Diabetes mellitus Surgical History Hx of cardiac catheterization Hx of colonoscopy Social History Household Members: Spouse Housing: Condominium Are you a primary manager wound care to a significant other at home: No Do you presently have visiting nurse or other home services: No Alcohol intake: never Patient Tobacco Use Status: Former Tobacco user Quit Date: 1979 Tobacco use type: Cigarette Years Smoked: 33 e-Cigarette/Vaping Use: Never Used Advance Directives Date on File: 04/11/21 service: No Current occupational status: unemployed and retired Meds Allergies Allergy/AdvReac Type Severity Reaction Status Date / Time No Known Allergies Allergy Verified 07/18/21 09:03 [No Known Allergies*] Active Medications: Current Medications Generic Name Dose Route Start Last Admin Trade Name Freq PRN Reason Stop Dose Admin Sodium Chloride 1,000 mls @ 100 mls/hr 06/26/21 19:00 06/26/21 19:07 Ns IVCONT 06/27/21 04:59 100 mls/hr .Q10H KIM Administration Home Medications Medication Instructions Recorded Confirmed Last Taken Type atorvastatin 40 mg tablet 40 mg PO BEDTIME 10/29/20 07/24/21 04/10/21 History cholecalciferol (vitamin D3) 50 50 mcg PO DAILY@1200 10/29/20 07/24/21 04/10/21 History mcg (2,000 unit) capsule albuterol sulfate 90 mcg/actuation 2 puff INHALATION Q6H PRN 02/04/21 07/24/21 Unknown History aerosol inhaler (Ventolin HFA) budesonide 90 mcg/actuation breath 2 puff PO BID 04/11/21 07/24/21 Unknown History activated powder inhaler (Pulmicort Flexhaler) blood sugar diagnostic #10 ea 05/13/21 07/18/21 Unknown History lancets 33 gauge #100 ea 05/13/21 07/18/21 Unknown History pen needle, diabetic 31 gauge x #1200 ea 05/13/21 07/18/21 Unknown History 5/16 furosemide 40 mg tablet (Lasix) 80 mg PO BID tab 05/14/21 07/24/21 Unknown History dulaglutide 0.75 mg/0.5 mL 0.75 mg SUBCUT QWEEK 07/18/21 07/24/21 Unknown History subcutaneous pen injector (Trulicity) insulin glargine U-300 conc 300 15 unit SUBCUT BEDTIME ml 07/18/21 07/24/21 Unknown History unit/mL (1.5 mL) subcutaneous pen (Toujeo SoloStar U-300 Insulin) metolazone 2.5 mg tablet 2.5 mg PO Q OTHER DAY 07/18/21 07/24/21 Unknown History Physical Exam Vital Signs and Narrative: Vital Signs: Last Vital Signs Temp 98 F 06/26/21 13:41 Pulse 79 06/26/21 19:12 Resp 16 06/26/21 19:12 BP 117/60 06/26/21 19:12 Pulse Ox 99 06/26/21 19:12 Body Mass Index 28.1 Gen: Appears be in no acute distress HEENT: NCAT, Moist mucosa. Pulmonary: Vesicular breath sounds, fair air entry CVS: Normal S1-S2 Abdomen: BS+, Soft, Nontender Extremities: Warm well perfused Neuro: Alert and awake. Results Labs CBC and Chem 7: 06/27/21 12:07 06/29/21 05:11 Labs: Laboratory Results - last 24 hr 06/26/21 06/26/21 06/26/21 16:58 16:58 17:58 MCV 85.5 MCH 27.3 MCHC 31.9 RDW 15.1 Plt Count 277 MPV 10.9 Immature Gran % (Auto) 0.3 Neut % (Auto) 69.0 Lymph % (Auto) 14.9 L [place] % (Auto) 11.2 H Eos % (Auto) 4.0 Baso % (Auto) 0.6 Lymph # (Auto) 2.1 [place] # (Auto) 1.6 H Eos # (Auto) 0.6 H Baso # (Auto) 0.1 Abs Immat Gran (auto) 0.04 H Absolute Neuts (auto) 9.7 H Absolute Nucleated RBC 0.000 Nucleated RBC % (auto) 0.0 Smear Tech's Comments VERIFIED Anion Gap 16 Estim Creat Clear Calc 28.7 Estimated GFR 33 Random Glucose 164 H Calcium 9.1 Total Bilirubin 1.5 H Direct Bilirubin 0.7 H AST 26 D ALT 27 Alkaline Phosphatase 113 D Troponin I High Sens 1123.3 H* D Total Protein 6.5 Albumin 3.7 Lipase 59 Urine Color Urine Appearance Urine pH Ur Specific [place] Urine Protein Urine Glucose (UA) Urine Ketones Urine Blood Urine Nitrite Ur Leukocyte Esterase Urine RBC Urine WBC Ur Squamous Epith Cells Urine Bacteria 06/26/21 17:58 MCV MCH MCHC RDW Plt Count MPV Immature Gran % (Auto) Neut % (Auto) Lymph % (Auto) [place] % (Auto) Eos % (Auto) Baso % (Auto) Lymph # (Auto) [place] # (Auto) Eos # (Auto) Baso # (Auto) Abs Immat Gran (auto) Absolute Neuts (auto) Absolute Nucleated RBC Nucleated RBC % (auto) Smear Tech's Comments Anion Gap Estim Creat Clear Calc Estimated GFR Random Glucose Calcium Total Bilirubin Direct Bilirubin AST ALT Alkaline Phosphatase Troponin I High Sens Total Protein Albumin Lipase Urine Color PINK Urine Appearance HAZY Urine pH 6.0 Ur Specific [place] <= 1.005 Urine Protein NEG Urine Glucose (UA) NEG Urine Ketones NEG Urine Blood 3+ H Urine Nitrite NEG Ur Leukocyte Esterase NEG Urine RBC 76-150 H Urine WBC 0-2 Ur Squamous Epith Cells TRACE Urine Bacteria NONE Assessment and Plan (1) Hypokalemia: Status: Acute 76-year-old male with a past medical history of hypertension, hyperlipidemia, diabetes, CHF, AFib on Xarelto, CKD, history of hypokalemia presented to the hospital with a chief complaint of hypokalemia. Hypokalemia: Patient is on diuretics at home. Also reports reduced oral intake. Potassium levels have been repleted. Will repeat the blood chemistry. EKG showed no acute changes. Magnesium level 2.1. Elevated troponins: Elevated at 1123->1175; EKG showed no acute ischemic changes; patient denies any chest pain. Likely reduced clearance in the setting of renal insufficiency. Patient's creatinine at his baseline. Patient had prior elevated troponins but this time it is more elevated than before. Discussed with Dr. swanson, recommended no acute intervention, will be evaluated in the morning. Diabetes: Will keep the patient on Lantus 10 units and insulin sliding scale. Monitor fingerstick glucose. At this insulins as needed. 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/hyperlipidemia: Continue home medications metoprolol, statin. History of AFib: Rate controlled. Continue home Xarelto and amiodarone. Hx CHF: c/w home lasix; c/w home potassium supplementation History of chronic kidney disease: Patient's creatinine baseline. Will continue to monitor. Code status: Full code Quality Stroke Does the patient have a stroke diagnosis?: No VTE Prior VTE?: No VTE Risk Level:: Medical - moderate - high VTE Device Contraindication: N/A - Device Ordered VTE Drug Contraindication: Treatment Not Indicated
[2021-06-26] MEDS: Potassium Chloride Packet 20 MEQ PACKET 40 MEQ PO (20:42)
[2021-06-26 21:14] LABS: Magnesium 2.1 mg/dL (1.6-2.6)
[2021-06-26 21:17] LABS: Troponin-I High Sensitivity 1175.8 ng/L (<3.5-35.0)
[2021-06-27] VITALS (8 sets, daily range): BP systolic 109–136; BP diastolic 53–73; PULSE 77–93; RESP 15–20; TEMP 36.4–37.2; O2SAT 96–98
[2021-06-27 00:56] LABS: Anion Gap 17 (12-20); Blood Urea Nitrogen 61 mg/dL (9-16); Carbon Dioxide 32 mmol/L (22-29); Chloride 90 mmol/L (96-108); Creatinine Clr Calc Pharmacy 30.8; Estimated Glomerular Filt Rate 35; Glucose Random 179 mg/dL (60-115); Potassium 3.2 mmol/L (3.3-5.1); Sodium 136 mmol/L (135-145)
[2021-06-27 05:08] LABS: Influenza A PCR NEGATIVE (Negative); Influenza B PCR NEGATIVE (Negative); Resp Syncy Virus RNA Qual PCR NEGATIVE (Negative); SARS COV2 PCR INHOUSE NEGATIVE (Negative)
[2021-06-27 07:18] LABS: Glucose, Whole Blood 175 mg/dL (60-115)
[2021-06-27] MEDS: Insulin Lispro 100 UNIT/ML 3 ML VIAL SUBCUT ×4 (07:54→22:11)
[2021-06-27] MEDS: 0.9 % Sodium Chloride Flush 3 ML SYRINGE IVFLUSH ×3 (07:55→22:12)
--- NOTE | 2021-06-27 10:21 | PM.CNCAR ---
History of Present Illness History of Present Illness Date of Service: 06/27/21 Requesting physician: Levi Terrell Chief complaint: Hypokalemia, abnormal troponin Narrative: 76 male with PAF, CAD, HTN, CKD and CHF presenting for abnormal labs. He had hypokalemia and elevated troponins. No CP or SOB. Not in CHF. No new ECG changes. 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 Obesity (BMI 30-39.9) SRINIVASA (obstructive sleep apnea) Right hand pain Family History Family History Father Heart disease Diabetes mellitus Mother Diabetes mellitus Surgical History Surgical History Hx of cardiac catheterization Hx of colonoscopy Social History Social History Household Members: Spouse Housing: Condominium Do you presently have visiting nurse or other home services: No Alcohol intake: never Patient Tobacco Use Status: Never used Tobacco e-Cigarette/Vaping Use: Never Used Advance Directives: No Advance Directives Information Provided: Yes Advance Directives Date on File: 04/11/21 service: No Current occupational status: unemployed Meds Allergies Allergy/AdvReac Type Severity Reaction Status Date / Time No Known Allergies Allergy Verified 06/26/21 13:41 [No Known Allergies*] Active Medications: Current Medications Generic Name Dose Route Start Last Admin Trade Name Freq PRN Reason Stop Dose Admin Acetaminophen 650 mg 06/27/21 00:26 Acetaminophen 325 Mg Tablet PO Q6H PRN Pain, Mild (Pain Scale 1-3) Albuterol Sulfate 2 puff 06/27/21 01:04 Albuterol Sulfate 90 Mcg 8 Gm Inhaler INHALE Q6H PRN Shortness Of Breath Amiodarone HCl 200 mg 06/27/21 09:00 Amiodarone Hcl 200 Mg Tablet PO BID [facility] Atorvastatin Calcium 40 mg 06/27/21 21:00 Atorvastatin Calcium 40 Mg Tablet PO BEDTIME [facility] Dextrose 25 gm 06/27/21 00:26 Dextrose 50 % 25 Gm/50 Ml Vial IVPUSH Q15M PRN per Hypoglycemia Standing Ord. Protocol Furosemide 80 mg 06/27/21 09:00 Furosemide 40 Mg Tablet PO BID [facility] Protocol Glucose 15 gm 06/27/21 00:26 Glucose Gel 15 Gm Gel..Gram. PO Q15M PRN per Hypoglycemia Standing Ord. Protocol Insulin Glargine 10 unit 06/27/21 21:00 Insulin Glargine,Hum.Rec.Anlog 100 Unit/Ml 10 Ml Vial SUBCUT BEDTIME [facility] Insulin Human Lispro 0 unit 06/27/21 07:30 06/27/21 07:54 Insulin Lispro 100 Unit/Ml 3 Ml Vial SUBCUT 2 unit QIDACHS [facility] Administration Protocol Metoprolol Succinate 12.5 mg 06/27/21 09:00 Metoprolol Succinate Er 12.5 Mg Halftab.Er.24h PO DAILY [facility] Protocol Potassium Chloride 40 meq 06/27/21 09:00 Potassium Chloride Er 20 Meq Tab.Er.Prt PO DAILY [facility] Rivaroxaban 15 mg 06/27/21 17:00 Rivaroxaban 15 Mg Tablet PO DAILY@1700 [facility] Sodium Chloride 3 ml 06/27/21 08:00 06/27/21 07:55 0.9 % Sodium Chloride Flush 3 Ml Syringe IVFLUSH 3 ml QSHIFT [facility] Administration Vitamin D 50 mcg 06/27/21 12:00 Cholecalciferol (Vitamin D3) 25 Mcg Tablet PO DAILY@1200 [facility] Home Medications Medication Instructions Recorded Confirmed Last Taken Type atorvastatin 40 mg tablet 40 mg PO BEDTIME 10/29/20 06/27/21 04/10/21 History cholecalciferol (vitamin D3) 50 50 mcg PO DAILY@1200 10/29/20 06/27/21 04/10/21 History mcg (2,000 unit) capsule albuterol sulfate 90 mcg/actuation 2 puff INHALATION Q6H PRN 02/04/21 06/27/21 Unknown History aerosol inhaler (Ventolin HFA) budesonide 90 mcg/actuation breath 2 puff PO BID 04/11/21 06/27/21 Unknown History activated powder inhaler (Pulmicort Flexhaler) blood sugar diagnostic #10 ea 05/13/21 06/27/21 Unknown History insulin glargine U-300 conc 300 20 unit SUBCUT BEDTIME ml 05/13/21 06/27/21 Unknown History unit/mL (1.5 mL) subcutaneous pen (Toujeo SoloStar U-300 Insulin) lancets 33 gauge #100 ea 05/13/21 06/27/21 Unknown History pen needle, diabetic 31 gauge x #1200 ea 05/13/21 06/27/21 Unknown History 04/06 furosemide 40 mg tablet (Lasix) 80 mg PO BID tab 05/14/21 06/27/21 Unknown History Physical Exam Vital Signs: Vital Signs: Last Vital Signs Temp 98 F 06/26/21 13:41 Pulse 78 06/27/21 06:26 Resp 16 06/27/21 06:26 BP 110/61 06/27/21 06:26 Pulse Ox 98 06/27/21 06:26 Body Mass Index 28.1 GENERAL APPEARANCE: in no acute distress, pleasant. NECK: no carotid bruit, No jugular venous distention. SKIN: no suspicious lesions, warm and dry. HEART: no murmur or gallop. LUNGS:? No significant wheezes or rhonchi.? ABDOMEN: soft, nontender. EXTREMITIES: no edema. PERIPHERAL PULSES: equal. NEUROLOGIC: No gross deficits, AAO X 3 Results Labs and Meds Result diagrams: 06/27/21 12:07 06/27/21 12:07 Lab results: Laboratory Results - last 24 hr 06/26/21 06/26/21 06/26/21 16:58 16:58 17:58 WBC 14.1 H RBC 4.77 Hgb 13.0 L Hct 40.8 L MCV 85.5 MCH 27.3 MCHC 31.9 RDW 15.1 Plt Count 277 MPV 10.9 Immature Gran % (Auto) 0.3 Neut % (Auto) 69.0 Lymph % (Auto) 14.9 L [place] % (Auto) 11.2 H Eos % (Auto) 4.0 Baso % (Auto) 0.6 Lymph # (Auto) 2.1 [place] # (Auto) 1.6 H Eos # (Auto) 0.6 H Baso # (Auto) 0.1 Abs Immat Gran (auto) 0.04 H Absolute Neuts (auto) 9.7 H Absolute Nucleated RBC 0.000 Nucleated RBC % (auto) 0.0 Smear Tech's Comments VERIFIED Sodium 134 L Potassium 2.3 L* D Chloride 85 L Carbon Dioxide 35 H Anion Gap 16 BUN 67 H D Creatinine 2.01 H Estim Creat Clear Calc 28.7 Estimated GFR 33 POC Glucose Random Glucose 164 H Calcium 9.1 Magnesium Total Bilirubin 1.5 H Direct Bilirubin 0.7 H AST 26 D ALT 27 Alkaline Phosphatase 113 D Troponin I High Sens 1123.3 H* D Total Protein 6.5 Albumin 3.7 Lipase 59 Urine Color Urine Appearance Urine pH Ur Specific [place] Urine Protein Urine Glucose (UA) Urine Ketones Urine Blood Urine Nitrite Ur Leukocyte Esterase Urine RBC Urine WBC Ur Squamous Epith Cells Urine Bacteria Coronavirus (PCR) Influenza Type A (PCR) Influenza Type B (PCR) RSV RNA Qual (PCR) 06/26/21 06/26/21 06/26/21 17:58 20:39 20:39 WBC RBC Hgb Hct MCV MCH MCHC RDW Plt Count MPV Immature Gran % (Auto) Neut % (Auto) Lymph % (Auto) [place] % (Auto) Eos % (Auto) Baso % (Auto) Lymph # (Auto) [place] # (Auto) Eos # (Auto) Baso # (Auto) Abs Immat Gran (auto) Absolute Neuts (auto) Absolute Nucleated RBC Nucleated RBC % (auto) Smear Tech's Comments Sodium Potassium Chloride Carbon Dioxide Anion Gap BUN Creatinine Estim Creat Clear Calc Estimated GFR POC Glucose Random Glucose Calcium Magnesium 2.1 Total Bilirubin Direct Bilirubin AST ALT Alkaline Phosphatase Troponin I High Sens 1175.8 H* Total Protein Albumin Lipase Urine Color PINK Urine Appearance HAZY Urine pH 6.0 Ur Specific [place] <= 1.005 Urine Protein NEG Urine Glucose (UA) NEG Urine Ketones NEG Urine Blood 3+ H Urine Nitrite NEG Ur Leukocyte Esterase NEG Urine RBC 76-150 H Urine WBC 0-2 Ur Squamous Epith Cells TRACE Urine Bacteria NONE Coronavirus (PCR) Influenza Type A (PCR) Influenza Type B (PCR) RSV RNA Qual (PCR) 06/27/21 06/27/21 06/27/21 00:02 03:57 07:15 WBC RBC Hgb Hct MCV MCH MCHC RDW Plt Count MPV Immature Gran % (Auto) Neut % (Auto) Lymph % (Auto) [place] % (Auto) Eos % (Auto) Baso % (Auto) Lymph # (Auto) [place] # (Auto) Eos # (Auto) Baso # (Auto) Abs Immat Gran (auto) Absolute Neuts (auto) Absolute Nucleated RBC Nucleated RBC % (auto) Smear Tech's Comments Sodium 136 Potassium 3.2 L D Chloride 90 L Carbon Dioxide 32 H Anion Gap 17 BUN 61 H Creatinine 1.87 H Estim Creat Clear Calc 30.8 Estimated GFR 35 POC Glucose 175 H Random Glucose 179 H Calcium 9.0 Magnesium Total Bilirubin Direct Bilirubin AST ALT Alkaline Phosphatase Troponin I High Sens Total Protein Albumin Lipase Urine Color Urine Appearance Urine pH Ur Specific [place] Urine Protein Urine Glucose (UA) Urine Ketones Urine Blood Urine Nitrite Ur Leukocyte Esterase Urine RBC Urine WBC Ur Squamous Epith Cells Urine Bacteria Coronavirus (PCR) NEGATIVE Influenza Type A (PCR) NEGATIVE Influenza Type B (PCR) NEGATIVE RSV RNA Qual (PCR) NEGATIVE Assessment and Plan (1) Hypokalemia: Status: Acute (2) PAF (paroxysmal atrial fibrillation): Status: Acute (3) Elevated troponin: Status: Acute 76 male with known CHF, CKD and CAD presenting for hypokalemia. He has no symptoms. Troponin level elevated but flat. No ischemic ECG changes. Troponin elevation unlikely to be ACS. Probably just poor clearance due to CKD. No further inpatient work up required. Signing off. Procedures Date of Service Date of Service: 06/27/21
[2021-06-27] MEDS: Metoprolol Succinate ER 12.5 MG HALFTAB.ER.24H PO (10:42)
[2021-06-27] MEDS: Furosemide 40 MG TABLET 80 MG PO ×2 (10:42→22:10)
[2021-06-27] MEDS: Amiodarone HCL 200 MG TABLET PO ×2 (10:43→22:10)
[2021-06-27] MEDS: Potassium Chloride ER 20 MEQ TAB.ER.PRT 40 MEQ PO (10:43)
[2021-06-27 11:34] LABS: Glucose, Whole Blood 221 mg/dL (60-115)
--- NOTE | 2021-06-27 12:02 | PC.NURSE ---
Repeat labs being drawn at this time, no flag on tracker to notify this rn of labs needed.
[2021-06-27 12:16] LABS: MANUAL DIFF FLAG NO
[2021-06-27 12:20] LABS: Basophils Absolute Auto 0.1 X10*3/uL (0.0-0.2); Basophils Percent Auto 0.6 % (0-2); Eosinophils Absolute Auto 0.4 X10*3/uL (0.0-0.4); Eosinophils Percent Auto 3.2 % (0-4); Hematocrit 40.9 % (42-52); Imm Gran Abs Auto 0.05 X10*3/uL (0.00-0.03); Imm Gran Pct Auto 0.4 % (0.0-0.4); Lymphocytes Absolute Auto 1.1 X10*3/uL (1.2-4.9); Lymphocytes Percent Auto 9.1 % (20-40); Mean Corpuscular HGB Conc 31.8 g/dl (31.0-36.0); Mean Corpuscular Hemoglobin 27.4 pg (27.0-33.0); Mean Corpuscular Volume 86.3 fL (80-98); Mean Platelet Volume 10.8 fL (9.4-12.4); Monocytes Absolute Auto 1.4 X10*3/uL (0.1-1.2); Monocytes Percent Auto 11.7 % (2-11); Neutrophils Absolute Auto 9.1 X10*3/uL (2.0-8.3); Platelet Count 261 X10*3/uL (160-400); Red Blood Count 4.74 X10*6/uL (4.60-5.80); Red Cell Distribution Width 15.3 % (11.0-16.0); White Blood Count 12.2 X10*3/uL (4.8-10.8)
[2021-06-27] MEDS: Cholecalciferol (Vitamin D3) 25 MCG TABLET 50 MCG PO (12:41)
[2021-06-27 12:47] LABS: Anion Gap 16 (12-20); Blood Urea Nitrogen 55 mg/dL (9-16); Calcium 9.2 mg/dL (8.4-10.2); Carbon Dioxide 33 mmol/L (22-29); Chloride 92 mmol/L (96-108); Creatinine Clr Calc Pharmacy 31.9; Estimated Glomerular Filt Rate 37; Glucose Random 237 mg/dL (60-115); Potassium 3.5 mmol/L (3.3-5.1); Sodium 137 mmol/L (135-145)
--- NOTE | 2021-06-27 15:18 | HO.PM.IMPN ---
Subjective Subjective Date of Service: 06/27/21 Interval History: seen and examined this morning admitted overnight for hypokalemia no complaints at this time. denies chest pain Review of Systems Review of Systems: Yes all other systems are reviewed and are negative Constitutional Constitutional: Denies chills and Denies fever(s) Cardiovascular Cardiovascular: Denies chest pain Respiratory Respiratory: Denies cough Gastrointestinal Gastrointestinal: Denies abdominal pain Physical Exam Vital Signs: Vital Signs: Last Vital Signs Temp 98 F 06/26/21 13:41 Pulse 88 06/27/21 12:42 Resp 16 06/27/21 12:42 BP 113/65 06/27/21 12:42 Pulse Ox 98 06/27/21 12:42 Body Mass Index 28.1 Const: General: healthy appearing, comfortable, no acute distress, alert and awake Nutritional Appearance: well nourished HENMT: Head: Yes normocephalic and Yes atraumatic Eyes: Sclerae: sclerae normal Chest: Chest palpation & inspection: normal inspection of the chest Resp: Effort & Inspection: normal respiratory effort and no respiratory distress Cardio: Heart sounds: S1 normal heart sound present and S2 normal heart sound present GI: Palpation (GI): Soft to palpation and nontender Neuro: Cranial nerves: Yes CN's II-XII intact bilaterally and Yes Bilaterally intact EOM present Objective Data Current Medications Generic Name Dose Route Start Last Admin Trade Name Freq PRN Reason Stop Dose Admin Acetaminophen 650 mg 06/27/21 00:26 Acetaminophen 325 Mg Tablet PO Q6H PRN Pain, Mild (Pain Scale 1-3) Albuterol Sulfate 2 puff 06/27/21 01:04 Albuterol Sulfate 90 Mcg 8 Gm Inhaler INHALE Q6H PRN Shortness Of Breath Amiodarone HCl 200 mg 06/27/21 09:00 06/27/21 10:43 Amiodarone Hcl 200 Mg Tablet PO 200 mg BID KIM Administration Atorvastatin Calcium 40 mg 06/27/21 21:00 Atorvastatin Calcium 40 Mg Tablet PO BEDTIME KIM Dextrose 25 gm 06/27/21 00:26 Dextrose 50 % 25 Gm/50 Ml Vial IVPUSH Q15M PRN per Hypoglycemia Standing Ord. Protocol Furosemide 80 mg 06/27/21 09:00 06/27/21 10:42 Furosemide 40 Mg Tablet PO 80 mg BID KIM Administration Protocol Glucose 15 gm 06/27/21 00:26 Glucose Gel 15 Gm Gel..Gram. PO Q15M PRN per Hypoglycemia Standing Ord. Protocol Insulin Glargine 10 unit 06/27/21 21:00 Insulin Glargine,Hum.Rec.Anlog 100 Unit/Ml 10 Ml Vial SUBCUT BEDTIME [facility] Insulin Human Lispro 0 unit 06/27/21 07:30 06/27/21 12:41 Insulin Lispro 100 Unit/Ml 3 Ml Vial SUBCUT 4 unit QIDACHS [facility] Administration Protocol Metoprolol Succinate 12.5 mg 06/27/21 09:00 06/27/21 10:42 Metoprolol Succinate Er 12.5 Mg Halftab.Er.24h PO 12.5 mg DAILY [facility] Administration Protocol Potassium Chloride 40 meq 06/27/21 09:00 06/27/21 10:43 Potassium Chloride Er 20 Meq Tab.Er.Prt PO 40 meq DAILY [facility] Administration Rivaroxaban 15 mg 06/27/21 17:00 Rivaroxaban 15 Mg Tablet PO DAILY@1700 [facility] Sodium Chloride 3 ml 06/27/21 08:00 06/27/21 07:55 0.9 % Sodium Chloride Flush 3 Ml Syringe IVFLUSH 3 ml QSHIFT [facility] Administration Vitamin D 50 mcg 06/27/21 12:00 06/27/21 12:41 Cholecalciferol (Vitamin D3) 25 Mcg Tablet PO 50 mcg DAILY@1200 [facility] Administration Labs CBC & Chem 7: 06/27/21 12:07 06/27/21 12:07 Labs: Laboratory Results - last 24 hr 06/26/21 06/26/21 06/26/21 16:58 16:58 17:58 MCV 85.5 MCH 27.3 MCHC 31.9 RDW 15.1 Plt Count 277 MPV 10.9 Immature Gran % (Auto) 0.3 Neut % (Auto) 69.0 Lymph % (Auto) 14.9 L Turner % (Auto) 11.2 H Eos % (Auto) 4.0 Baso % (Auto) 0.6 Lymph # (Auto) 2.1 Turner # (Auto) 1.6 H Eos # (Auto) 0.6 H Baso # (Auto) 0.1 Abs Immat Gran (auto) 0.04 H Absolute Neuts (auto) 9.7 H Absolute Nucleated RBC 0.000 Nucleated RBC % (auto) 0.0 Smear Tech's Comments VERIFIED Anion Gap 16 Estim Creat Clear Calc 28.7 Estimated GFR 33 POC Glucose Random Glucose 164 H Calcium 9.1 Magnesium Total Bilirubin 1.5 H Direct Bilirubin 0.7 H AST 26 D ALT 27 Alkaline Phosphatase 113 D Troponin I High Sens 1123.3 H* D Total Protein 6.5 Albumin 3.7 Lipase 59 Urine Color Urine Appearance Urine pH Ur Specific [place] Urine Protein Urine Glucose (UA) Urine Ketones Urine Blood Urine Nitrite Ur Leukocyte Esterase Urine RBC Urine WBC Ur Squamous Epith Cells Urine Bacteria Coronavirus (PCR) Influenza Type A (PCR) Influenza Type B (PCR) RSV RNA Qual (PCR) 06/26/21 06/26/21 06/26/21 17:58 20:39 20:39 MCV MCH MCHC RDW Plt Count MPV Immature Gran % (Auto) Neut % (Auto) Lymph % (Auto) Turner % (Auto) Eos % (Auto) Baso % (Auto) Lymph # (Auto) Turner # (Auto) Eos # (Auto) Baso # (Auto) Abs Immat Gran (auto) Absolute Neuts (auto) Absolute Nucleated RBC Nucleated RBC % (auto) Smear Tech's Comments Anion Gap Estim Creat Clear Calc Estimated GFR POC Glucose Random Glucose Calcium Magnesium 2.1 Total Bilirubin Direct Bilirubin AST ALT Alkaline Phosphatase Troponin I High Sens 1175.8 H* Total Protein Albumin Lipase Urine Color PINK Urine Appearance HAZY Urine pH 6.0 Ur Specific [place] <= 1.005 Urine Protein NEG Urine Glucose (UA) NEG Urine Ketones NEG Urine Blood 3+ H Urine Nitrite NEG Ur Leukocyte Esterase NEG Urine RBC 76-150 H Urine WBC 0-2 Ur Squamous Epith Cells TRACE Urine Bacteria NONE Coronavirus (PCR) Influenza Type A (PCR) Influenza Type B (PCR) RSV RNA Qual (PCR) 06/27/21 06/27/21 06/27/21 00:02 03:57 07:15 MCV MCH MCHC RDW Plt Count MPV Immature Gran % (Auto) Neut % (Auto) Lymph % (Auto) Turner % (Auto) Eos % (Auto) Baso % (Auto) Lymph # (Auto) Turner # (Auto) Eos # (Auto) Baso # (Auto) Abs Immat Gran (auto) Absolute Neuts (auto) Absolute Nucleated RBC Nucleated RBC % (auto) Smear Tech's Comments Anion Gap 17 Estim Creat Clear Calc 30.8 Estimated GFR 35 POC Glucose 175 H Random Glucose 179 H Calcium 9.0 Magnesium Total Bilirubin Direct Bilirubin AST ALT Alkaline Phosphatase Troponin I High Sens Total Protein Albumin Lipase Urine Color Urine Appearance Urine pH Ur Specific [place] Urine Protein Urine Glucose (UA) Urine Ketones Urine Blood Urine Nitrite Ur Leukocyte Esterase Urine RBC Urine WBC Ur Squamous Epith Cells Urine Bacteria Coronavirus (PCR) NEGATIVE Influenza Type A (PCR) NEGATIVE Influenza Type B (PCR) NEGATIVE RSV RNA Qual (PCR) NEGATIVE 06/27/21 06/27/21 06/27/21 11:31 12:07 12:07 MCV 86.3 MCH 27.4 MCHC 31.8 RDW 15.3 Plt Count 261 MPV 10.8 Immature Gran % (Auto) 0.4 Neut % (Auto) 75.0 H Lymph % (Auto) 9.1 L Turner % (Auto) 11.7 H Eos % (Auto) 3.2 Baso % (Auto) 0.6 Lymph # (Auto) 1.1 L Turner # (Auto) 1.4 H Eos # (Auto) 0.4 Baso # (Auto) 0.1 Abs Immat Gran (auto) 0.05 H Absolute Neuts (auto) 9.1 H Absolute Nucleated RBC 0.000 Nucleated RBC % (auto) 0.0 Smear Tech's Comments Anion Gap 16 Estim Creat Clear Calc 31.9 Estimated GFR 37 POC Glucose 221 H Random Glucose 237 H Calcium 9.2 Magnesium Total Bilirubin Direct Bilirubin AST ALT Alkaline Phosphatase Troponin I High Sens Total Protein Albumin Lipase Urine Color Urine Appearance Urine pH Ur Specific [place] Urine Protein Urine Glucose (UA) Urine Ketones Urine Blood Urine Nitrite Ur Leukocyte Esterase Urine RBC Urine WBC Ur Squamous Epith Cells Urine Bacteria Coronavirus (PCR) Influenza Type A (PCR) Influenza Type B (PCR) RSV RNA Qual (PCR) Assessment and Plan (1) Hypokalemia: Status: Acute Assessment and Plan: This is a 76-year-old male with a past medical history of hypertension, hyperlipidemia, diabetes, CHF, AFib on Xarelto, CKD, history of hypokalemia presented to the hospital with a chief complaint of hypokalemia. Hypokalemia:? Patient is on diuretics at home.? improved. EKG showed no acute changes. Magnesium level 2.1. -repeat BMP in am Elevated troponins:? Elevated at 1123->1175; EKG showed no acute ischemic changes; patient denies any chest pain. Likely reduced clearance in the setting of renal insufficiency.? Patient's creatinine at his baseline. Patient had prior elevated troponins but this time it is more elevated than before. seen by cardiology, no further workup required. Diabetes:? -continue Lantus 10 units and insulin sliding scale.? 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 continue metoprolol hyperlipidemia:? Continue statin. History of AFib:? Rate controlled.? Continue home Xarelto metoprolol and amiodarone. Hx CHF: c/w home lasix; c/w home potassium supplementation History of chronic kidney disease:? Patient's creatinine baseline.? Will continue to monitor. Code status:? Full code dvt ppx - xarelto attending: Dr. potts Quality Stroke Does the patient have a stroke diagnosis?: No VTE Prior VTE?: No VTE Risk Level:: Medical - moderate - high VTE Device Contraindication: Treatment Not Indicated VTE Drug Contraindication: Treatment Not Indicated
[2021-06-27 16:43] LABS: Glucose, Whole Blood 330 mg/dL (60-115)
[2021-06-27] MEDS: Rivaroxaban 15 MG TABLET PO (17:25)
--- NOTE | 2021-06-27 19:36 | PC.NURSE ---
Floor called to give report. RN assuming care of patient to call back
--- NOTE | 2021-06-27 19:46 | PC.NURSE ---
Called ED to obtain report, was asked to call back later
[2021-06-27 21:27] LABS: Glucose, Whole Blood 255 mg/dL (60-115)
[2021-06-27] MEDS: Atorvastatin Calcium 40 MG TABLET PO (22:10)
[2021-06-27] MEDS: Insulin Glargine,Hum.rec.anlog 100 UNIT/ML 10 ML VIAL 10 UNIT SUBCUT (22:11)
[2021-06-28] VITALS (9 sets, daily range): BP systolic 97–128; BP diastolic 54–69; PULSE 75–90; RESP 15–20; TEMP 36.2–37.1; O2SAT 94–98; BMI 27.3
[2021-06-28 07:04] LABS: Glucose, Whole Blood 128 mg/dL (60-115)
[2021-06-28 07:28] LABS: Anion Gap 17 (12-20); Blood Urea Nitrogen 55 mg/dL (9-16); Calcium 9.1 mg/dL (8.4-10.2); Carbon Dioxide 33 mmol/L (22-29); Chloride 93 mmol/L (96-108); Creatinine Clr Calc Pharmacy 32.3; Estimated Glomerular Filt Rate 38; Glucose Random 133 mg/dL (60-115); Potassium 2.9 mmol/L (3.3-5.1); Sodium 140 mmol/L (135-145)
[2021-06-28] MEDS: Potassium Chloride ER 20 MEQ TAB.ER.PRT 40 MEQ PO (10:14)
[2021-06-28] MEDS: Potassium Chloride ER 20 MEQ TAB.ER.PRT PO (10:14)
[2021-06-28] MEDS: Furosemide 40 MG TABLET 80 MG PO ×2 (10:15→21:33)
[2021-06-28] MEDS: 0.9 % Sodium Chloride Flush 3 ML SYRINGE IVFLUSH ×3 (10:16→21:34)
[2021-06-28] MEDS: Amiodarone HCL 200 MG TABLET PO ×2 (10:17→21:33)
[2021-06-28] MEDS: Metoprolol Succinate ER 12.5 MG HALFTAB.ER.24H PO (10:18)
[2021-06-28 11:03] LABS: Glucose, Whole Blood 274 mg/dL (60-115)
[2021-06-28] MEDS: Insulin Lispro 100 UNIT/ML 3 ML VIAL SUBCUT ×3 (12:37→21:32)
[2021-06-28] MEDS: Cholecalciferol (Vitamin D3) 25 MCG TABLET 50 MCG PO (12:38)
--- NOTE | 2021-06-28 14:43 | PM.EVENT ---
Event Note Date of Service: 06/28/21 Event Note: ?I saw and examined the patient and discuss findings, labs, meds, management and disposition with RN and I agree with management as outline in PN by RN, except if otherwise stated.
[2021-06-28] MEDS: Acetaminophen 325 MG TABLET 650 MG PO (15:27)
--- NOTE | 2021-06-28 15:57 | MHC.CM.PN ---
CM MET WITH PT AND HIS WHO WAS AT BEDSIDE. PT REPORTEDLY LIVES WITH HIS AND IS INDEPENDENT WITH CARE AT BASELINE. PT HAS A CANE AND CPAP AT HOME. PT AND REPORT HE IS NO LONGER ACTIVE WITH [facility] HOWEVER CM CONFIRMED WITH [facility] PT IS STILL ACTIVE WITH [facility]. PT HAS A HCP ON FILE AND CONFIRMS RADHA GOODWIN IS HIS PCP. IMM DELIVERED CURRENT DC PLAN IS HOME WITH RESUMPTION OF [facility]. TO TRANSPORT
--- NOTE | 2021-06-28 15:59 | PM.IMPN ---
Progress Note: A&P (1) Elevated troponin: Status: Acute <Chen Rob NP - Last Filed: 06/28/21 16:03> Assessment and Plan: This is a 76-year-old male with a past medical history of hypertension, hyperlipidemia, diabetes, CHF, AFib on Xarelto, CKD, history of hypokalemia presented to the hospital with a chief complaint of hypokalemia. Hypokalemia Patient is on diuretics at home.? improved. EKG showed no acute changes. Magnesium level 2.1. -repeat BMP in am Elevated troponins Elevated at 1123->1175; EKG showed no acute ischemic changes; patient denies any chest pain. Likely reduced clearance in the setting of renal insufficiency.? Patient's creatinine at his baseline. Patient had prior elevated troponins but this time it is more elevated than before. seen by cardiology, no further workup required. Diabetes -continue Lantus 10 units and insulin sliding scale.? 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 continue metoprolol hyperlipidemia Continue statin. History of AFib:? Rate controlled.? Continue home Xarelto metoprolol and amiodarone. Hx CHF: c/w home lasix; c/w home potassium supplementation History of chronic kidney disease:? Patient's creatinine baseline.? Will continue to monitor. DISPO likely home tomorrow if potassium back to baseline Code status:? Full code dvt ppx - xarelto attending: Dr. Fisher <Chen Rob NP - Last Filed: 06/28/21 16:03> (2) Hypokalemia: Status: Acute <Chen Rob NP - Last Filed: 06/28/21 16:03> Subjective Subjective Date of Service: 06/28/21 <Chen Rob NP - Last Filed: 06/28/21 16:03> 06/29/21 <Lexx Fisher MD - Last Filed: 06/29/21 13:41> Interval History: Follow up hypokalemia some right arm pain secondary to BP cuff no otehr complaints <Chen Rob NP - Last Filed: 06/28/21 16:03> Physical Exam Vital Signs: Vital Signs: Last Vital Signs Temp 98.5 F 06/28/21 11:18 Pulse 86 06/28/21 11:18 Resp 19 06/28/21 11:18 BP 113/58 L 06/28/21 11:18 Pulse Ox 96 06/28/21 11:18 Body Mass Index 27.3 <Chen Rob NP - Last Filed: 06/28/21 16:03> Appearing in no acute distress lung sounds are clear to auscultation heart regular rate rhythm, clear S1, S2 positive bowel sounds, abdomen is soft, nontender neuro patient is alert x3, no focal deficits <Chen Rob NP - Last Filed: 06/28/21 16:03> Objective Data Current Medications Generic Name Dose Route Start Last Admin Trade Name Freq PRN Reason Stop Dose Admin Acetaminophen 650 mg 06/27/21 00:26 06/28/21 15:27 Acetaminophen 325 Mg Tablet PO 650 mg Q6H PRN Administration Pain, Mild (Pain Scale 1-3) Albuterol Sulfate 2 puff 06/27/21 01:04 Albuterol Sulfate 90 Mcg 8 Gm Inhaler INHALE Q6H PRN Shortness Of Breath Amiodarone HCl 200 mg 06/27/21 09:00 06/28/21 10:17 Amiodarone Hcl 200 Mg Tablet PO 200 mg BID KIM Administration Atorvastatin Calcium 40 mg 06/27/21 21:00 06/27/21 22:10 Atorvastatin Calcium 40 Mg Tablet PO 40 mg BEDTIME KIM Administration Dextrose 25 gm 06/27/21 00:26 Dextrose 50 % 25 Gm/50 Ml Vial IVPUSH Q15M PRN per Hypoglycemia Standing Ord. Protocol Furosemide 80 mg 06/27/21 09:00 06/28/21 10:15 Furosemide 40 Mg Tablet PO 80 mg BID KIM Administration Protocol Glucose 15 gm 06/27/21 00:26 Glucose Gel 15 Gm Gel..Gram. PO Q15M PRN per Hypoglycemia Standing Ord. Protocol Insulin Glargine 10 unit 06/27/21 21:00 06/27/21 22:11 Insulin Glargine,Hum.Rec.Anlog 100 Unit/Ml 10 Ml Vial SUBCUT 10 unit BEDTIME KIM Administration Insulin Human Lispro 0 unit 06/27/21 07:30 06/28/21 12:37 Insulin Lispro 100 Unit/Ml 3 Ml Vial SUBCUT 6 unit QIDACHS KIM Administration Protocol Metoprolol Succinate 12.5 mg 06/27/21 09:00 06/28/21 10:18 Metoprolol Succinate Er 12.5 Mg Halftab.Er.24h PO 12.5 mg DAILY KIM Administration Protocol Potassium Chloride 40 meq 06/27/21 09:00 06/28/21 10:14 Potassium Chloride Er 20 Meq Tab.Er.Prt PO 40 meq DAILY KIM Administration Rivaroxaban 15 mg 06/27/21 17:00 06/27/21 17:25 Rivaroxaban 15 Mg Tablet PO 15 mg DAILY@1700 KIM Administration Sodium Chloride 3 ml 06/27/21 08:00 06/28/21 15:29 0.9 % Sodium Chloride Flush 3 Ml Syringe IVFLUSH 3 ml QSHIFT [facility] Administration Vitamin D 50 mcg 06/27/21 12:00 06/28/21 12:38 Cholecalciferol (Vitamin D3) 25 Mcg Tablet PO 50 mcg DAILY@1200 [facility] Administration <Chen Rob NP - Last Filed: 06/28/21 16:03> Labs CBC & Chem 7: : 06/27/21 12:07 06/29/21 05:11 <Chen Rob NP - Last Filed: 06/28/21 16:03> Labs: Laboratory Results - last 24 hr 06/27/21 06/27/21 06/28/21 16:40 21:22 05:47 Anion Gap 17 Estim Creat Clear Calc 32.3 Estimated GFR 38 POC Glucose 330 H 255 H Random Glucose 133 H D Calcium 9.1 06/28/21 06/28/21 06:46 10:56 Anion Gap Estim Creat Clear Calc Estimated GFR POC Glucose 128 H 274 H Random Glucose Calcium <Chen Rob NP - Last Filed: 06/28/21 16:03> Quality Stroke Does the patient have a stroke diagnosis?: No <Chen Rob NP - Last Filed: 06/28/21 16:03> VTE Prior VTE?: No <Chen Rob NP - Last Filed: 06/28/21 16:03> VTE Risk Level:: Medical - moderate - high <Chen Rob NP - Last Filed: 06/28/21 16:03> VTE Device Contraindication: Treatment Not Indicated <Chen Rob NP - Last Filed: 06/28/21 16:03> VTE Drug Contraindication: Treatment Not Indicated <Chen Rob NP - Last Filed: 06/28/21 16:03>
[2021-06-28 16:33] LABS: Glucose, Whole Blood 249 mg/dL (60-115)
[2021-06-28] MEDS: Rivaroxaban 15 MG TABLET PO (17:12)
[2021-06-28 20:08] LABS: Glucose, Whole Blood 322 mg/dL (60-115)
[2021-06-28] MEDS: Atorvastatin Calcium 40 MG TABLET PO (21:33)
[2021-06-28] MEDS: Insulin Glargine,Hum.rec.anlog 100 UNIT/ML 10 ML VIAL 10 UNIT SUBCUT (21:33)
[2021-06-29 03:32] VITALS: BP 113/62; PULSE 80; RESP 18; TEMP 36.7; O2SAT 97
[2021-06-29 06:00] VITALS: BMI 27.4
[2021-06-29 06:47] LABS: Anion Gap 15 (12-20); Blood Urea Nitrogen 61 mg/dL (9-16); Carbon Dioxide 32 mmol/L (22-29); Chloride 95 mmol/L (96-108); Creatinine Clr Calc Pharmacy 26.4; Estimated Glomerular Filt Rate 30; Glucose Random 200 mg/dL (60-115); Potassium 3.7 mmol/L (3.3-5.1); Sodium 138 mmol/L (135-145)
[2021-06-29 07:27] LABS: Glucose, Whole Blood 213 mg/dL (60-115)
[2021-06-29 07:44] VITALS: BP 116/64; PULSE 79; RESP 17; TEMP 36.5; O2SAT 95
[2021-06-29 08:11] VITALS: PULSE 91
[2021-06-29] MEDS: Metoprolol Succinate ER 12.5 MG HALFTAB.ER.24H PO (08:11)
[2021-06-29 08:12] VITALS: PULSE 91
[2021-06-29] MEDS: Potassium Chloride ER 20 MEQ TAB.ER.PRT 40 MEQ PO (08:12)
[2021-06-29] MEDS: Furosemide 40 MG TABLET 80 MG PO (08:12)
[2021-06-29] MEDS: Amiodarone HCL 200 MG TABLET PO (08:12)
[2021-06-29] MEDS: Insulin Lispro 100 UNIT/ML 3 ML VIAL SUBCUT ×2 (08:14→11:24)
[2021-06-29] MEDS: 0.9 % Sodium Chloride Flush 3 ML SYRINGE IVFLUSH (08:15)
[2021-06-29 11:09] LABS: Glucose, Whole Blood 297 mg/dL (60-115)
--- NOTE | 2021-06-29 11:17 | PM.DS ---
DS: Providers Provider Date of Service: 06/29/21 <Chen Rob NP - Last Filed: 06/29/21 11:22> Date of admission: 06/27/21 00:26 <Chen Rob NP - Last Filed: 06/29/21 11:22> Date of discharge: 06/29/21 <Chen Rob NP - Last Filed: 06/29/21 11:22> Primary care physician: Miriam Gray MD <Chen Rob NP - Last Filed: 06/29/21 11:22> Admitting clinician: Levi Terrell <Chen Rob NP - Last Filed: 06/29/21 11:22> Attending physician on admission: Levi Terrell <Chen Rob NP - Last Filed: 06/29/21 11:22> Consults: 06/27/21 09:05 Consult to Cardiology Routine Consulting Provider: Dax Novoa Reason for consultation: elevated troponin Has provider been notified: No <Chen Rob NP - Last Filed: 06/29/21 11:22> Attending physician on discharge: Lexx Fisher <Chen Rob NP - Last Filed: 06/29/21 11:22> Discharging clinician: Chen Rob <Chen Rob NP - Last Filed: 06/29/21 11:22> DS: Diagnosis Discharge Diagnosis (1) Elevated troponin: Status: Acute <Chen Rob NP - Last Filed: 06/29/21 11:22> (2) Hypokalemia: Status: Acute <Chen Rob NP - Last Filed: 06/29/21 11:22> DS: Medications Discharge Medications Home Medications: Home Medications Medication Instructions Recorded Confirmed atorvastatin 40 mg tablet 40 mg PO BEDTIME 10/29/20 06/27/21 cholecalciferol (vitamin D3) 50 50 mcg PO DAILY@1200 10/29/20 06/27/21 mcg (2,000 unit) capsule albuterol sulfate 90 mcg/actuation 2 puff INHALATION Q6H PRN 02/04/21 06/27/21 aerosol inhaler (Ventolin HFA) budesonide 90 mcg/actuation breath 2 puff PO BID 04/11/21 06/27/21 activated powder inhaler (Pulmicort Flexhaler) blood sugar diagnostic #10 ea 05/13/21 06/27/21 insulin glargine U-300 conc 300 20 unit SUBCUT BEDTIME ml 05/13/21 06/27/21 unit/mL (1.5 mL) subcutaneous pen (Toujeo SoloStar U-300 Insulin) lancets 33 gauge #100 ea 05/13/21 06/27/21 pen needle, diabetic 31 gauge x #1200 ea 05/13/21 06/27/21 5/16 furosemide 40 mg tablet (Lasix) 80 mg PO BID tab 05/14/21 06/27/21 Previous Rx's Medication Instructions Recorded amiodarone 200 mg tablet 200 mg PO BID #60 tab 05/09/21 Humalog KwikPen Insulin 100 See Rx Instructions SUBCUT TID 30 05/13/21 unit/mL subcutaneous (insulin Days #30 ml NS lispro) exenatide microspheres 2 mg/0.85 2 mg SUBCUT QWEEK 30 Days #4.25 ml 05/13/21 mL subcutaneous auto-injector rivaroxaban 15 mg tablet (Xarelto) 15 mg PO DAILY #30 tab 05/21/21 lidocaine 4 % topical patch 1 patch TOPICAL DAILY PRN #10 ea 05/31/21 potassium chloride 20 mEq 40 meq PO DAILY #60 tab 06/02/21 tablet,extended release(part/cryst) metoprolol succinate 25 mg 12.5 mg PO DAILY 30 Days #15 tab 06/27/21 tablet,extended release 24 hr (Toprol XL) <Chen Rob NP - Last Filed: 06/29/21 11:22> DS: Summary Hospital Course Hospital Course: HP as per admitting provider 76-year-old male with a past medical history of hypertension, hyperlipidemia, diabetes, coronary artery disease, CHF, SRINIVASA, diabetic neuropathy, AFib on Xarelto; presented to the hospital with a chief complaint of hypokalemia. Patient mentioned that he had routine labs done as outpatient today and noted to have low potassium levels and subsequently asked him to go to the ER for further evaluation. At the time of my entry patient denies any chest pain palpitations lightheadedness or dizziness.? Denies any fever chills cough.? Denies any nausea vomiting diarrhea. Denies any numbness tingling or focal weakness. Patient mentioned that he has fatigue and shortness of breath which has been chronic and unchanged.? Denies any weight gain. Review of all other systems is negative except mentioned above Hypokalemia. Patient was on diuretics home, potassium level improved significantly and normalized. he will continue on his normal dose diuretics and check his BMP in 4 days. Elevated troponin. No acute ischemic changes, patient had denied chest pain. Likely secondary to renal insufficiency. seen and evaluated by Cardiology, found to be unlikely ACS, no further cardiac workup. <Chen Rob NP - Last Filed: 06/29/21 11:22> Time Spent with Patient Time attestation: Total time spent providing and/or coordinating discharge services: <Chen Rob NP - Last Filed: 06/29/21 11:22> Discharge coordination time: Greater than 30 minutes <Chen Rob NP - Last Filed: 06/29/21 11:22> Quality: Stroke Does the patient have a stroke diagnosis?: No <Chen Rob NP - Last Filed: 06/29/21 11:22> Physical Exam Vital Signs: Vital Signs: Last Vital Signs Temp 97.7 F 06/29/21 07:44 Pulse 91 06/29/21 08:12 Resp 17 06/29/21 07:44 BP 116/64 06/29/21 07:44 Pulse Ox 95 06/29/21 07:44 Body Mass Index 27.4 <Chen Rob NP - Last Filed: 06/29/21 11:22> Appearing in no acute distress head is normocephalic atraumatic eyes pupils are PERRLA sclera is anicteric mouth throat mucous membranes are intact and moist neck is supple no lymphadenopathy, no JVD noted lung sounds are clear to auscultation heart regular rate rhythm, clear S1, S2 positive bowel sounds, abdomen is soft, nontender neuro patient is alert x3, no focal deficits <Chen Rob NP - Last Filed: 06/29/21 11:22> DS: Data Data Completed and Pending Completed studies during hospitalization [Text1]: Procedures Restorationist of Cardiac Rhythm, Single (05/01/21) <Chen Rob NP - Last Filed: 06/29/21 11:22> Labs on day of discharge: Laboratory Results - last 24 hr 06/28/21 06/28/21 06/29/21 16:18 19:55 05:11 Sodium 138 Potassium 3.7 D Chloride 95 L Carbon Dioxide 32 H Anion Gap 15 BUN 61 H Creatinine 2.16 H Estim Creat Clear Calc 26.4 Estimated GFR 30 POC Glucose 249 H 322 H Random Glucose 200 H D Calcium 9.0 06/29/21 06/29/21 07:02 11:05 Sodium Potassium Chloride Carbon Dioxide Anion Gap BUN Creatinine Estim Creat Clear Calc Estimated GFR POC Glucose 213 H 297 H Random Glucose Calcium <Chen Rob NP - Last Filed: 06/29/21 11:22> Discharge Plan Discharge Anticipated Discharge Date/Time: 06/29/21 11:11 <Chen Rob NP - Last Filed: 06/29/21 11:22> Patient Disposition: Home, Self-Care <Chen Rob NP - Last Filed: 06/29/21 11:22> Discharge Diagnosis: Hypokalemia Elevated troponins <Chen Rob NP - Last Filed: 06/29/21 11:22> Hypokalemia Elevated troponins <Lexx Fisher MD - Last Filed: 06/29/21 13:41> Referrals: Miriam Gray MD [Primary Care Provider] - 1 Week <Chen Rob NP - Last Filed: 06/29/21 11:22> Discharge Medications: Continued Xarelto 15 mg tablet 15 mg PO DAILY Qty: 30 RF: 5 potassium chloride 20 mEq tablet,ER particles/crystals 40 meq PO DAILY Qty: 60 RF: 2 metoprolol succinate [Toprol XL] 25 mg tablet extended release 24 hr 12.5 mg PO DAILY 30 Days Qty: 15 RF: 3 Pulmicort Flexhaler 90 mcg/actuation aerosol powdr breath activated 2 puff PO BID RF: 0 lidocaine 4 % adhesive patch,medicated 1 patch topical DAILY PRN (Reason: pain) Qty: 10 RF: 0 amiodarone 200 mg Tablet 200 mg PO BID Qty: 60 RF: 0 cholecalciferol (vitamin D3) 50 mcg (2,000 unit) capsule 50 mcg PO DAILY@1200 RF: 0 atorvastatin 40 mg tablet 40 mg PO BEDTIME RF: 0 albuterol sulfate [Ventolin HFA] 90 mcg/actuation HFA aerosol inhaler 2 puff inhalation Q6H PRN (Reason: Shortness Of Breath) RF: 0 (DME) lancets 33 gauge misc See Rx Instructions ea Not Applicable QID Qty: 100 RF: 0 (DME) blood sugar diagnostic Strip See Rx Instructions ea Not Applicable QID Qty: 10 RF: 0 (DME) pen needle, diabetic 31 gauge x 5/16 needle See Rx Instructions ea subcut .MEDSUPPLY Qty: 1200 RF: 0 exenatide microspheres 2 mg/0.85 mL auto-injector 2 mg subcut QWEEK 30 Days Qty: 4.25 RF: 6 Toujeo SoloStar U-300 Insulin 300 unit/mL (1.5 mL) insulin pen 20 unit subcut BEDTIME RF: 0 insulin lispro [Humalog KwikPen Insulin] 100 unit/mL insulin pen See Rx Instructions subcut TID 30 Days Qty: 30 RF: 6 furosemide [Lasix] 40 mg tablet 80 mg PO BID RF: 0 <Chen Rob NP - Last Filed: 06/29/21 11:22> Discharge Orders: Discharge Order (Routine); Ordered 06/29/21 Ordered By: Chen Rob <Chen Rob NP - Last Filed: 06/29/21 11:22> Diet: advance to usual diet <Chen Rob NP - Last Filed: 06/29/21 11:22> advance to usual diet <Lexx Fisher MD - Last Filed: 06/29/21 13:41> Activity on Discharge: As tolerated <Chen Rob NP - Last Filed: 06/29/21 11:22> As tolerated <Lexx Fisher MD - Last Filed: 06/29/21 13:41> Stand Alone Forms: Patient Portal Discharge page <Chen Rob NP - Last Filed: 06/29/21 11:22> Other Ambulatory Orders: Basic Metabolic Panel (Routine) Timeframe: [id number] Facility: [facility] - Location: Laboratory Ordered By: Chen Rob <Chen Rob NP - Last Filed: 06/29/21 11:22> Care Plan Goals: Continuing stable potassium level <Chen Rob NP - Last Filed: 06/29/21 11:22> Health Concerns: Hyponatremia Elevated troponin <Chen Rob NP - Last Filed: 06/29/21 11:22> Plan of Treatment: Follow-up with her primary care provider as needed Check a potassium level next week <Chen Rob NP - Last Filed: 06/29/21 11:22> Assessment: Discharge summary <Chen Rob NP - Last Filed: 06/29/21 11:22>
[2021-06-29] MEDS: Cholecalciferol (Vitamin D3) 25 MCG TABLET 50 MCG PO (11:23)
--- NOTE | 2021-06-29 11:35 | MHC.CM.PN ---
Per CM notes, patient previously active w/[facility]. Notified [facility] that patient was D/C to home today per MD.
[2021-06-29 11:57] VITALS: BP 120/64; PULSE 88; RESP 18; TEMP 36.5; O2SAT 98
== END 2021-06-29 15:04 | disposition home or self-care (01) | DRG 641 ==
LOC: HO.ED 06-27 10:22 → HO.EDOVER 06-27 18:02 → HO.IMC 06-27 19:20
PROVIDERS: Nurse Practitioner Acute Care; Physician Assistant Medical; Admitting Provider Hospitalist; Emergency Provider Emergency Medicine; PCP Family Medicine; Visit Provider Internal Medicine
DX: E87.6 Hypokalemia (principal); I13.0 Hypertensive heart and chronic kidney disease with heart failure and stage 1 through stage 4 chronic kidney disease, or unspecified chronic kidney disease; I48.92 Unspecified atrial flutter; G47.33 Obstructive sleep apnea (adult) (pediatric); E78.5 Hyperlipidemia, unspecified; Z20.822 Contact with and (suspected) exposure to COVID-19; I50.9 Heart failure, unspecified; E11.22 Type 2 diabetes mellitus with diabetic chronic kidney disease; R79.89 Other specified abnormal findings of blood chemistry; N18.30 Chronic kidney disease, stage 3 unspecified; E11.42 Type 2 diabetes mellitus with diabetic polyneuropathy; Z79.4 Long term (current) use of insulin; Z79.899 Other long term (current) drug therapy
CPT/HCPCS: 0241U; 36415; 80048; 80076; 81001; 82947; 83690; 83735; 84484; 85025; 93005; 99285

== ENCOUNTER 2021-07-03 09:02 | Outpatient (REF) | payer MEDICARE, OTHER, SELFPAY ==
[2021-07-03 10:20] LABS: Anion Gap 18 (12-20); Blood Urea Nitrogen 74 mg/dL (9-16); Calcium 9.4 mg/dL (8.4-10.2); Carbon Dioxide 32 mmol/L (22-29); Chloride 89 mmol/L (96-108); Estimated Glomerular Filt Rate 23; Glucose Random 156 mg/dL (60-115); Potassium 3.3 mmol/L (3.3-5.1); Sodium 136 mmol/L (135-145)
== END 2021-07-03 09:03 | disposition home or self-care (01) ==
LOC: HO.LAB 09:02
PROVIDERS: PCP Family Medicine; Referring Provider Family Medicine; Visit Provider Nurse Practitioner Acute Care
DX: E87.6 Hypokalemia (principal)
CPT/HCPCS: 36415; 80048

== ENCOUNTER 2021-07-17 09:21 | Outpatient (REF) | payer MEDICARE, OTHER, SELFPAY ==
--- NOTE | ~2021-07-17 | US_ITS ---
EXAMINATION: US ABDOMEN COMPLETE CLINICAL INFORMATION: Nausea. Weight loss. COMPARISON: Ultrasound kidneys and bladder 06/05/2019. CT abdomen and pelvis 05/01/2019. MRA abdomen 07/05/2009. MRI abdomen 03/02/2007. TECHNIQUE: Real-time imaging of the abdominal viscera. FINDINGS: PANCREAS: The head and the body of the pancreas is homogeneous in echotexture. The tail of the pancreas is obscured by overlying gas. ABDOMINAL AORTA: The proximal and mid abdominal aorta is normal caliber. The distal abdominal aorta is not seen. INFERIOR VENA CAVA: Visualized portions are normal. LIVER: There are a few echogenic linear calcified vessels visualized. The liver is normal in size. The liver contour is normal. Parenchymal echogenicity is normal. No focal hepatic lesion. There is no intrahepatic biliary duct dilatation seen. GALLBLADDER: Normal. The gallbladder is physiologically distended without evidence of stones, sludge, polyps, wall thickening or pericholecystic fluid. COMMON BILE DUCT: Normal in caliber measuring 0.4 cm in diameter. RIGHT KIDNEY: There is anechoic cyst in midpole measuring 1.2 x 1.0 x 0.9 cm. A subtle hypoechoic area seen in the midpole cortex with no flow measuring 1.5 cm. No hydronephrosis or renal calculi. The kidney measures 10.0 cm in maximum dimension. LEFT KIDNEY: Normal. No hydronephrosis. No renal calculi or focal parenchymal lesions. The kidney measures 10.0 cm in maximum dimension. SPLEEN: There are a few calcified vessels seen in the spleen. The spleen measures 9.1 cm in maximum dimension. FREE FLUID: None. US/US abdomen complete IMPRESSION: There is anechoic partially exophytic cyst midpole right kidney and a hypoechoic mass mid pole cortex right kidney with no flow. Question underlying lesion versus complex cyst. It is not visualized on the noncontrast CT abdomen exam from 05/01/2019. A few calcified vessels are visualized in liver and spleen.
== END 2021-07-17 09:22 | disposition home or self-care (01) ==
LOC: HO.US 09:21
PROVIDERS: PCP Family Medicine; Visit Provider Family Medicine
DX: R10.0 Acute abdomen (principal); R63.4 Abnormal weight loss
CPT/HCPCS: 76700

== ENCOUNTER → 2021-07-18 08:30 | Outpatient (BNVA) | payer MEDICARE, OTHER, SELFPAY | PROVIDERS: PCP Family Medicine; Visit Provider Nurse Practitioner Gerontology | DX: E11.65 Type 2 diabetes mellitus with hyperglycemia (principal); E11.42 Type 2 diabetes mellitus with diabetic polyneuropathy; E78.5 Hyperlipidemia, unspecified; E66.9 Obesity, unspecified; I10 Essential (primary) hypertension; Z79.4 Long term (current) use of insulin | CPT/HCPCS: 82947; 99212 ==

== ENCOUNTER → 2021-07-21 08:55 | Outpatient (BNVA) | payer MEDICARE, OTHER, SELFPAY | PROVIDERS: PCP Family Medicine; Referring Provider Family Medicine; Visit Provider Internal Medicine ==

== ENCOUNTER → 2021-07-30 09:02 | Outpatient (REF) | payer MEDICARE, MEDICAID, SELFPAY ==
[2021-07-30 09:37] LABS: COVID-19 Test Negative (Negative)
[2021-07-30 10:40] LABS: Appearance Urine CLEAR; Color Urine YELLOW; Glucose Urine UA NEG (NEG); Leukocyte Esterase Urine NEG (NEG); Nitrite Urine NEG (NEG); Specific Gravity - Urine <= 1.005 (1.005-1.025); Urine Blood 3+ (NEG); Urine Ketones NEG (NEG); Urine Protein NEG (NEG-TRACE)
[2021-07-30 11:01] LABS: RBC Urine 50-75 /HPF (0); Squamous Epithelial Cell Urine TRACE /LPF
[2021-07-30 11:02] LABS: WBC Urine 0-2 /HPF (0-4)
[2021-07-30 11:06] LABS: B Type Natriuretic Peptide 895 pg/mL (<100)
[2021-07-30 11:24] LABS: TSH reflex Free T4 1.09 uIU/mL (0.32-4.0)
[2021-07-30 12:07] LABS: Anion Gap 22 (12-20); Blood Urea Nitrogen 85 mg/dL (9-16); Calcium 9.7 mg/dL (8.4-10.2); Carbon Dioxide 29 mmol/L (22-29); Chloride 80 mmol/L (96-108); Estimated Glomerular Filt Rate 18; Glucose Random 197 mg/dL (60-115); Sodium 127 mmol/L (135-145)
--- NOTE | 2021-07-30 14:09 | CA_ITS ---
Transthoracic Echocardiogram Patient (Last, First, Middle): Jonathan Neal A Gender: Male Date of : 1945 Age: 76 Procedure Date: 07/30/2021 Procedure Type: Transthoracic Echocardiogram Location: OP Height: 160.02 cm Weight: 69.85 kg BSA: 1.73 m2 Heart Rate: bpm BP: 200 / 71 mmHg Senior Occupational Therapist: MAR Referring MD: Jas Dudley MD Drop Wire Stringer: Eric Richardson MD Symptoms: I50.42 - Chronic combined systolic (congestive) and diast... Study Quality: Fair ECG Rhythm: Sinus Conclusions: - 1. Low normal LV systolic function with mild LVH with grade 3 diastolic dysfunction 2. Mildly dilated left atrium 3. Pilm-ae-awiyozyt mitral regurgitation 4. Normal RV systolic pressure 5. No gross pericardial effusion Findings Left Ventricle Normal left ventricular cavity size. There is mildly increased left ventricular wall thickness. The left ventricular systolic function is low normal. The visually estimated ejection fraction is between 50-55%. Spectral Doppler is indicative of a restrictive filling pattern. E/E prime ratio is >15, consistent with elevated filling pressures. Evidence suggests grade III (severe) diastolic dysfunction. Right Ventricle Normal right ventricular cavity size and systolic function. Atria The left atrium is mildly dilated. Interatrial shunt cannot be excluded. The right atrium is normal in size. Aortic Valve There is mild calcification of the aortic valve. There is no aortic valve stenosis. There is no aortic valve regurgitation. Mitral Valve There is mild anterior and posterior mitral leaflet thickening. There is mild mitral annular calcification. There is mild to moderate mitral valve regurgitation. There is no mitral valve stenosis. Pulmonic Valve The pulmonic valve was not well visualized. Tricuspid Valve Likely normal tricuspid valve structure and function. There is trace tricuspid valve regurgitation. The right ventricular systolic pressure is normal. The right ventricular systolic pressure is 34 mmHg. There is no evidence of pulmonary hypertension. Great Vessels All visible segments of the aorta are normal in size. The pulmonary artery was not well visualized. Venous The inferior vena cava is normal in size. Pericardium/Pleural There is no evidence of pericardial effusion. Prior Study Comparison Significant changes compared to prior study dated: 05/05/2021. LV systolic function measured by Johnson's method is in the low normal range which is significantly improved. RV systolic pressure are measured to be normal range Measurements 2D Linear Measurements IVSd: 1.23 0.6-0.9/0.6-1.0 cm LVIDd: 4.38 3.9-5.3/4.2-5.9 cm LVIDd Index: 2.53 2.4-3.2/2.2-3.1 cm/m2 LVIDs: 3.66 2.0-3.6 cm LVPWd: 1.60 0.7-1.1 cm Ao Root: 2.60 2.1-3.5 cm LA Diam: 4.10 2.7-3.8/3.0-4.0 cm LAIDs Index: 2.37 1.5-2.3 cm/m2 LV Mass: 302.41 67-162/88-224 g LV Mass Index: 174.80 43-95/49-115 g/m2 LVOT Diam: 1.90 3.0+(-)1.3 cm 2D Systolic Function EF 4C: 45.90 >55% EF 2C: 55.90 >55% EF BiP: 50.90 >55% Mitral Valve MV Pk E: 1.05 MV PK A: 0.26 MV Decel Time: 132.00 E/A: 4.00 E'Lateral: 4.68 E'Medial: 3.05 E/E' Med: 34.40 E/E' Lat: 22.40 PHT: 39.00 MVA PHT: 5.64 Decel [place]: 7.89 MR VTI: 1.06 MR Alias Marcell: 0.28 Aortic Valve AoV Pk Marcell: 1.24 AoV Pk Grad: 6.00 LVOT LVOT Pk Marcell: 0.64 LVOT Mn Marcell: 0.40 LVOT VTI: 0.11 LVOT Pk Grad: 2.00 LVOT Mn Grad: 1.00 LVOT Diam: 1.90 LVOT Area: 2.84 Diastolic Function MV Pk E: 1.05 MV Pk A: 0.26 E/A: 4.00 E'Medial: 3.05 E/E' Med: 34.40 E' Laterial: 4.68 E/E' Lat: 22.40 Right Ventricle TAPSE (mm): 1.46 Tricuspid Valve TR Pk Marcell: 2.78 TR Pk Grad: 31.00 RA Press: 3.00 RVSP: 34.00 Great Vessels Aorta Ao Root-2D: 2.60 2.0-3.7 cm Ao Asc: 3.10 2.1-3.4 cm Updated in Other Vendor System with Status of Final Eric Richardson MD electronically signed on 07/31/2021 12:35:07 PM with status of Final
== END ==
LOC: HO.CARD 09:02
PROVIDERS: Internal Medicine Cardiovascular Disease; Absent Provider Nurse Practitioner Family; PCP Family Medicine; Visit Provider Internal Medicine
DX: Z01.810 Encounter for preprocedural cardiovascular examination (principal); Z20.822 Contact with and (suspected) exposure to COVID-19; I48.0 Paroxysmal atrial fibrillation; I11.0 Hypertensive heart disease with heart failure; I50.42 Chronic combined systolic (congestive) and diastolic (congestive) heart failure; G47.33 Obstructive sleep apnea (adult) (pediatric)
CPT/HCPCS: 36415; 80048; 81001; 83880; 84443; 87635; 93306; 99212; C9803

== ENCOUNTER 2021-08-01 07:33 | Day surgery (SDC) | payer MEDICARE, MEDICAID, SELFPAY ==
--- NOTE | 2021-07-24 11:54 | HO.ANESPROP2 ---
Documented by User: Elmira Trinh NP 07/31/21 09:00 HPI - Anesthesia Eval Consult details Narrative: 76yo M for CARDIOMEMS Eliquis for afib (recent change from Xarelto) [facility] Active Problems Active Problems: All Active Problems (Updated 07/22/21 @ 14:00 by Desiree Muñoz, EUNICE) Chronic heart failure with preserved ejection fraction (HFpEF) (Acute) Sinus tachycardia (Acute) Gout (Acute) Sepsis (Acute) Nonsustained ventricular tachycardia (Acute) Diabetes mellitus (Acute) Chronic heart failure with reduced ejection fraction and diastolic dysfunction (Acute) PAF (paroxysmal atrial fibrillation) (Acute) Preop cardiovascular exam (Acute) Right hand pain (Acute) Essential hypertension (Acute) SRINIVASA (obstructive sleep apnea) (Acute) CAD (coronary artery disease) (Acute) Heart failure with preserved ejection fraction (Acute) CKD (chronic kidney disease) stage 3, GFR 30-59 ml/min (Acute) Obesity (BMI 30-39.9) (Acute) 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 (Acute) Dyslipidemia (Acute) Diabetic polyneuropathy associated with type 2 diabetes mellitus (Acute) senior living (current) use of insulin (Acute) Past Medical History Medical History (Updated 07/24/21 @ 19:09 by Levi Terrell MD) Acute on chronic combined systolic (congestive) and diastolic (congestive) heart failure CAD (coronary artery disease) Cardiomyopathy CKD (chronic kidney disease) stage 3, GFR 30-59 ml/min COVID-19 vaccine series completed Diabetes type 2, uncontrolled Diabetic polyneuropathy associated with type 2 diabetes mellitus Dyslipidemia Essential hypertension Heart failure with preserved ejection fraction History of cardioversion History of COVID-19 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 manager terminal (current) use of insulin Obesity (BMI 30-39.9) SRINIVASA (obstructive sleep apnea) Right hand pain Family History Family History Father Heart disease Diabetes mellitus Mother Diabetes mellitus Surgical History Surgical History Hx of cardiac catheterization Hx of colonoscopy Social History Social History Household Members: Spouse Housing: Condominium Are you a primary manager critical care unit to a significant other at home: No Do you presently have visiting nurse or other home services: No Alcohol intake: never Patient Tobacco Use Status: Former Tobacco user Quit Date: 1979 Tobacco use type: Cigarette Years Smoked: 33 e-Cigarette/Vaping Use: Never Used Use of substances other than those prescribed or required for medical reasons: No Have you been hit, kicked, punched, or otherwise hurt by someone within the past year? If so, by whom?: No Are you DNR?: No Advance Directives Information Provided: Yes (as above noted) Advance Directives on File: No Advance Directives Date on File: 04/11/21 Recently lost weight without trying: No Eating poorly because of decreased appetite: No Nutrition Risks: No Nutritional Risk Poor oral hygiene: No (upper & lower partials-does not wear them) service: No Current occupational status: unemployed and retired Narrative Narrative: No recent illness No CP / SOB at baseline, uses CPAP with resolution of symptoms No peripheral edema Meds Allergies Allergy/AdvReac Type Severity Reaction Status Date / Time No Known Allergies Allergy Verified 07/18/21 09:03 [No Known Allergies*] Home Medications Medication Instructions Recorded Confirmed Last Taken Type atorvastatin 40 mg tablet 40 mg PO BEDTIME 10/29/20 07/24/21 04/10/21 History cholecalciferol (vitamin D3) 50 50 mcg PO DAILY@1200 10/29/20 07/24/21 04/10/21 History mcg (2,000 unit) capsule albuterol sulfate 90 mcg/actuation 2 puff INHALATION Q6H PRN 02/04/21 07/24/21 Unknown History aerosol inhaler (Ventolin HFA) budesonide 90 mcg/actuation breath 2 puff PO BID 04/11/21 07/24/21 Unknown History activated powder inhaler (Pulmicort Flexhaler) blood sugar diagnostic #10 ea 05/13/21 07/18/21 Unknown History lancets 33 gauge #100 ea 05/13/21 07/18/21 Unknown History pen needle, diabetic 31 gauge x #1200 ea 05/13/21 07/18/21 Unknown History 04/06 furosemide 40 mg tablet (Lasix) 80 mg PO BID tab 05/14/21 07/24/21 Unknown History dulaglutide 0.75 mg/0.5 mL 0.75 mg SUBCUT QWEEK 07/18/21 07/24/21 Unknown History subcutaneous pen injector (Trulicity) insulin glargine U-300 conc 300 15 unit SUBCUT BEDTIME ml 07/18/21 07/24/21 Unknown History unit/mL (1.5 mL) subcutaneous pen (Toujeo SoloStar U-300 Insulin) metolazone 2.5 mg tablet 2.5 mg PO Q OTHER DAY 07/18/21 07/24/21 Unknown History Exam Exam Date and Time: July 24, 2021 1154 Pertinent Lab Results Pertinent Lab Results: Laboratory Tests 06/27/21 07/03/21 12:07 09:17 WBC 12.2 H Hgb 13.0 L Hct 40.9 L Plt Count 261 Sodium 136 Potassium 3.3 Chloride 89 L Carbon Dioxide 32 H BUN 74 H Creatinine 2.72 H Narrative Narrative: EKG 06/2021 Vent. Rate : 083 BPM ? ? Atrial Rate : 080 BPM ?? P-R Int : 000 ms? QRS Dur : 116 ms ? ? QT Int : 446 ms ? ? ? P-R-T Axes : 000 -75 073 degrees ?? QTc Int : 524 ms ? Normal sinus rhythm with first degree AV block Left axis deviation Pulmonary disease pattern Incomplete left bundle branch block Nonspecific T wave abnormality Abnormal ECG When compared with ECG of 31-MAY-2021 09:09, Nonspecific T wave abnormality, worse in Inferior leads Nonspecific T wave abnormality now evident in Lateral leads ISAÍAS 04/2021 Conclusion: ? 1. Moderate LV systolic dysfunction with moderate LV wall? ? thickness EF 35-40%? 2. Moderate biatrial enlargement, With dense smoke formation seen within left atrial appendage ? 3. No intracardiac masses, thrombi, vegetations? 4. Mild mitral regurgitation ? 5. No interatrial shunting ? 6. Trivial pericardial effusion? ? ? ECHO - Limited 04/2021 Conclusions: - The left ventricular systolic function is severely decreased.? The visually estimated ejection fraction is between 15-20%.? ? ? - Evidence suggests grade III (severe) diastolic dysfunction.? ? - Mild to moderate pulmonary hypertension is present.? - The inferior vena cava is mildly dilated and does not collapse with inspiration.? ?? Airway Mallampati Class: I TM Dist: >3cm Neck ROM: Full Loose/Missing/Broken Teeth: Yes (Multiple missing, ) Heart: RRR Lungs: RUL with exp wheeze, otherwise CTA Assessment and Plan Assessment Anesthesia Assessment: Anesthesia Plan Discussed and PAT Visit Documented by User: Zoe Gonzalez MD 08/01/21 08:45 [facility] Past Medical History Medical History (Updated 07/24/21 @ 19:09 by Levi Terrell MD) Acute on chronic combined systolic (congestive) and diastolic (congestive) heart failure CAD (coronary artery disease) Cardiomyopathy CKD (chronic kidney disease) stage 3, GFR 30-59 ml/min COVID-19 vaccine series completed Diabetes type 2, uncontrolled Diabetic polyneuropathy associated with type 2 diabetes mellitus Dyslipidemia Essential hypertension Heart failure with preserved ejection fraction History of cardioversion History of COVID-19 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 manager terminal (current) use of insulin Obesity (BMI 30-39.9) SRINIVASA (obstructive sleep apnea) Right hand pain Family History Family History Father Heart disease Diabetes mellitus Mother Diabetes mellitus Surgical History Surgical History Hx of cardiac catheterization Hx of colonoscopy Social History Social History Household Members: Spouse Housing: Condominium Are you a primary manager critical care unit to a significant other at home: No Do you presently have visiting nurse or other home services: No Alcohol intake: never Patient Tobacco Use Status: Former Tobacco user Quit Date: 1979 Tobacco use type: Cigarette Years Smoked: 33 e-Cigarette/Vaping Use: Never Used Use of substances other than those prescribed or required for medical reasons: No Have you been hit, kicked, punched, or otherwise hurt by someone within the past year? If so, by whom?: No Are you DNR?: No Advance Directives Information Provided: Yes (as above noted) Advance Directives on File: No Advance Directives Date on File: 04/11/21 Recently lost weight without trying: No Eating poorly because of decreased appetite: No Nutrition Risks: No Nutritional Risk Poor oral hygiene: No (upper & lower partials-does not wear them) service: No Current occupational status: unemployed and retired Meds Allergies Allergy/AdvReac Type Severity Reaction Status Date / Time No Known Allergies Allergy Verified 07/18/21 09:03 [No Known Allergies*] Home Medications Medication Instructions Recorded Confirmed Last Taken Type atorvastatin 40 mg tablet 40 mg PO BEDTIME 10/29/20 07/24/21 04/10/21 History cholecalciferol (vitamin D3) 50 50 mcg PO DAILY@1200 10/29/20 07/24/21 04/10/21 History mcg (2,000 unit) capsule albuterol sulfate 90 mcg/actuation 2 puff INHALATION Q6H PRN 02/04/21 07/24/21 Unknown History aerosol inhaler (Ventolin HFA) budesonide 90 mcg/actuation breath 2 puff PO BID 04/11/21 07/24/21 Unknown History activated powder inhaler (Pulmicort Flexhaler) blood sugar diagnostic #10 ea 05/13/21 07/18/21 Unknown History lancets 33 gauge #100 ea 05/13/21 07/18/21 Unknown History pen needle, diabetic 31 gauge x #1200 ea 05/13/21 07/18/21 Unknown History 5/16 furosemide 40 mg tablet (Lasix) 80 mg PO BID tab 05/14/21 07/24/21 Unknown History dulaglutide 0.75 mg/0.5 mL 0.75 mg SUBCUT QWEEK 07/18/21 07/24/21 Unknown History subcutaneous pen injector (Trulicity) insulin glargine U-300 conc 300 15 unit SUBCUT BEDTIME ml 07/18/21 07/24/21 Unknown History unit/mL (1.5 mL) subcutaneous pen (Toujeo SoloStar U-300 Insulin) metolazone 2.5 mg tablet 2.5 mg PO Q OTHER DAY 07/18/21 07/24/21 Unknown History Exam Airway Mallampati Class: II Loose/Missing/Broken Teeth: Lower
[2021-07-24 12:07] VITALS: BP 127/60; PULSE 81; RESP 20; O2SAT 99; BMI 27.6
[2021-08-01] VITALS (13 sets, daily range): BP systolic 92–141; BP diastolic 49–79; PULSE 64–82; RESP 16–18; TEMP 36.1–36.5; O2SAT 95–100
--- NOTE | ~2021-08-01 | FL_ITS ---
EXAMINATION: XR FLUOROSCOPY WITH IMAGES CLINICAL INFORMATION: Cardiomems COMPARISON: Chest x-ray 04/30/2021 TECHNIQUE: Fluoroscopy performed by Bright. Fluoroscopy time: 9.9 minutes DAP: 19.7 Gycm2 Images: 2 FL/FL guidance in OR IMPRESSION: Intraoperative fluoroscopic guidance provided. The 2 images submitted show contrast injection into the right pulmonary artery with subsequent placement of a Cardiomems wireless heart failure monitor.
[2021-08-01 08:34] LABS: Glucose, Whole Blood 158 mg/dL (60-115)
[2021-08-01] MEDS: 0.9 % Sodium Chloride 500 ML 20 ML IVCONT (08:36)
[2021-08-01 10:52] LABS: Base Excess Bedside Calculated 10 mmol/L (-3-3); Glucose, i-STAT 149 mg/dL (60-115); HCO3 Bedside Calculated 33 mmol/L (22-26); Hematocrit Bedside 36 %PCV (42-52); Hemoglobin Bedside 12.2 g/dL (14.0-18.0); Potassium Bedside 3.6 mmol/L (3.3-5.1); Sodium Bedside 130 mmol/L (135-145); TCO2 Bedside 34 mmol/L (24-29); pCO2 Bedside 45 mmhg (35-48); pH Bedside 7.48 (7.35-7.45)
--- NOTE | 2021-08-01 11:07 | PM.OP ---
Brief Operative Note Date of Service: 08/01/21 Pre-op diagnosis: CHF. Cardiomems implantation Post-op diagnosis: same Implants: Cardiomems Surgeon: Dax Novoa MD Was an Coal Handling Supervisor used for this Procedure?: No Estimated blood loss (mL): 25 Pathology: none sent Condition: stable Disposition: same day
--- NOTE | 2021-08-01 11:08 | P.DS_ITS ---
DS: Providers Provider Date of Service: 08/01/21 Date of admission: 08/01/21 Date of discharge: 08/01/21 Primary care physician: Miiram Gray MD Admitting clinician: Dax Novoa Attending physician on admission: Dax Novoa DS: Diagnosis Discharge Diagnosis (1) Chronic heart failure with reduced ejection fraction and diastolic dysfunction: Status: Acute DS: Summary Time Spent with Patient Time attestation: Total time spent providing and/or coordinating discharge services: Physical Exam Vital Signs: Vital Signs: Last Vital Signs Temp 97.7 F 08/01/21 08:06 Pulse 82 08/01/21 08:06 Resp 18 08/01/21 08:06 BP 141/79 H 08/01/21 08:06 Pulse Ox 100 08/01/21 08:06 Body Mass Index 27.6 DS: Data Data Completed and Pending Completed studies during hospitalization [Text1]: Procedures [facility] of Cardiac Rhythm, Single (05/01/21) Labs on day of discharge: Laboratory Results - last 24 hr 08/01/21 08/01/21 08:32 10:41 POC Hgb (Calc) 12.2 L POC Hct 36 L POC Std Base Excess 10 H POC O2 Sat (Calc) TNP POC ABG Total CO2 34 H POC Capillary pH 7.48 H POC Capillary pCO2 45 POC Cap HCO3 (Calc) 33 H POC Sodium 130 L POC Potassium 3.6 POC Glucose 158 H 149 H Discharge Plan Discharge Patient Disposition: Home, Self-Care Referrals: Miriam Gray MD [Primary Care Provider] - 1 Week Discharge Medications: Continued (DME) lancets 33 gauge misc See Rx Instructions ea Not Applicable QID Qty: 100 RF: 0 (DME) blood sugar diagnostic Strip See Rx Instructions ea Not Applicable QID Qty: 10 RF: 0 (DME) pen needle, diabetic 31 gauge x 5/16 needle See Rx Instructions ea subcut .MEDSUPPLY Qty: 1200 RF: 0 No Action metolazone 2.5 mg Tablet 2.5 mg PO Q OTHER DAY RF: 0 atorvastatin 40 mg tablet 40 mg PO QPM RF: 0 torsemide 20 mg Tablet 20 mg PO QNOON RF: 0 torsemide 20 mg Tablet 40 mg PO DAILY RF: 0 amiodarone 200 mg Tablet 200 mg PO DAILY RF: 0 potassium chloride 20 mEq tablet,ER particles/crystals 40 meq PO QNOON RF: 0 omeprazole 20 mg Capsule,Delayed Release(Dr/Ec) 20 mg PO DAILY RF: 0 insulin lispro [Humalog KwikPen Insulin] 100 unit/mL insulin pen 18 - 22 unit subcut TID RF: 0 Pulmicort Flexhaler 90 mcg/actuation aerosol powdr breath activated 2 puff inhalation BID RF: 0 cholecalciferol (vitamin D3) [Vitamin D3] 50 mcg (2,000 unit) Capsule 50 mcg PO QNOON RF: 0 Eliquis 5 mg Tablet 5 mg PO BID RF: 0 Trulicity 1.5 mg/0.5 mL pen injector 1.5 mg subcut QWEEK RF: 0 Discharge Orders: Discharge Order (Routine); Ordered 08/01/21 Ordered By: Dax Novoa Activity Restrictions/Additional Instructions: Please do not lift anything more than 10 pounds for 1 week. Please resume Eliquis tomorrow evening if there is no bleeding from the groin site. If any concern for bleeding please call our office or go to the emergency department for assessment. Please do not resume Eliquis if there is any bleeding concerns. Discharge Date/Time: 08/01/21 15:01
--- NOTE | 2021-08-21 09:25 | W.PM.OPN ---
Operative Note Operative Note Date of Service: 08/01/21 Narrative: Procedure: Cardiomems implantation Anesthesia: MAC Patient was consented and time-out was performed. We injected 1% lidocaine and using fluoroscopy we accessed the right femoral vein with micropuncture. After this we upsized our sheath using dilators to a 11 Tamazight sheath. We performed right heart catheterization and recorded our findings. RA 12, RV 60/12, PAP 49/18 (29), PCWP 20. No cardiac output measurement was performed beause we did not have access to measuring mixed venous saturations in the operating room. We then performed left pulmonary arteriogram to choose location of the CardioMEMS implant. After this we placed .018 wire through the Huntington-Eric into the left pulmonary artery. We walked Huntington-Eric catheter out and advanced the CardioMEMS delivery catheter over the wire to the left pulmonary artery. Using previous angiogram and bony landmarks we deployed the CardioMEMS into the left pulmonary artery. We removed the CardioMEMS delivery catheter and place a Huntington-Eric catheter over the wire back into the pulmonary artery. We again measured pulmonary artery pressures and did initial programming of the CardioMEMS device. After this the Huntington-Eric catheter was removed. We then removed the 11- Fr sheath with manual compression and achieved hemostasis. Patient tolerated the procedure well and there were no complications.
== END 2021-08-01 15:01 | disposition home or self-care (01) ==
PROVIDERS: PCP Family Medicine; Visit Provider Internal Medicine Cardiovascular Disease
PROC: (CPT 33289; principal; 2021-08-01 09:00)
DX: I11.0 Hypertensive heart disease with heart failure (principal); I50.42 Chronic combined systolic (congestive) and diastolic (congestive) heart failure; I48.0 Paroxysmal atrial fibrillation; E11.9 Type 2 diabetes mellitus without complications; Z79.01 Long term (current) use of anticoagulants; Z79.4 Long term (current) use of insulin; Z79.899 Other long term (current) drug therapy
CPT/HCPCS: 33289; 82947; C1769; C1887; C2624; J2250; J3010; Q9967

== ENCOUNTER → 2021-08-12 12:40 | Outpatient (BNVA) | payer MEDICARE, MEDICAID, SELFPAY | PROVIDERS: PCP Family Medicine; Visit Provider Dietitian, Registered | DX: E11.42 Type 2 diabetes mellitus with diabetic polyneuropathy (principal) | CPT/HCPCS: 97802 ==

== ENCOUNTER 2021-08-13 12:06 | Outpatient (REF) | payer MEDICARE, MEDICAID, SELFPAY ==
[2021-08-13 14:19] LABS: Appearance Urine CLEAR; Color Urine STRAW; Glucose Urine UA 100 MG/DL (NEG); Leukocyte Esterase Urine NEG (NEG); Nitrite Urine NEG (NEG); PH 6.5 (5.0-8.0); Specific Gravity - Urine <= 1.005 (1.005-1.025); Urine Blood 3+ (NEG); Urine Ketones NEG (NEG); Urine Protein NEG (NEG-TRACE)
[2021-08-13 14:21] LABS: Hemoglobin 11.4 g/dl (14.0-18.0); Mean Corpuscular HGB Conc 31.7 g/dl (31.0-36.0); Mean Corpuscular Hemoglobin 27.5 pg (27.0-33.0); Mean Corpuscular Volume 86.7 fL (80-98); Platelet Count 202 X10*3/uL (160-400); Red Blood Count 4.15 X10*6/uL (4.60-5.80); Red Cell Distribution Width 16.3 % (11.0-16.0); White Blood Count 9.3 X10*3/uL (4.8-10.8)
[2021-08-13 14:50] LABS: WBC Urine 0-2 /HPF (0-4)
[2021-08-13 14:53] LABS: Blood Urea Nitrogen 66 mg/dL (9-16); Calcium 9.4 mg/dL (8.4-10.2); Estimated Glomerular Filt Rate 22; Glucose Random 222 mg/dL (60-115)
[2021-08-13 15:02] LABS: Anion Gap 14 (12-20); Carbon Dioxide 37 mmol/L (22-29); Chloride 86 mmol/L (96-108); Potassium 2.8 mmol/L (3.3-5.1); Sodium 134 mmol/L (135-145)
[2021-08-13 15:49] LABS: Prostate Specific Antigen 63.44 ng/mL (<0.05-4.0)
== END 2021-08-13 12:07 | disposition home or self-care (01) ==
LOC: HO.LAB 12:06
PROVIDERS: Absent Provider Internal Medicine; PCP Family Medicine; Referring Provider Family Medicine; Visit Provider Internal Medicine Cardiovascular Disease
DX: Z12.5 Encounter for screening for malignant neoplasm of prostate (principal); I13.0 Hypertensive heart and chronic kidney disease with heart failure and stage 1 through stage 4 chronic kidney disease, or unspecified chronic kidney disease; I50.43 Acute on chronic combined systolic (congestive) and diastolic (congestive) heart failure; N18.4 Chronic kidney disease, stage 4 (severe); E11.22 Type 2 diabetes mellitus with diabetic chronic kidney disease; N28.1 Cyst of kidney, acquired; R11.0 Nausea; R31.0 Gross hematuria; E11.65 Type 2 diabetes mellitus with hyperglycemia; I48.0 Paroxysmal atrial fibrillation; R31.9 Hematuria, unspecified; E87.6 Hypokalemia; Z79.4 Long term (current) use of insulin; Z87.891 Personal history of nicotine dependence
CPT/HCPCS: 36415; 80048; 81001; 84153; 85027; 99212

== ENCOUNTER 2021-08-18 11:52 | Outpatient (REF) | payer MEDICARE, MEDICAID, SELFPAY ==
[2021-08-18 13:14] LABS: Magnesium 2.1 mg/dL (1.6-2.6); Potassium 3.7 mmol/L (3.3-5.1)
== END 2021-08-18 11:53 | disposition home or self-care (01) ==
LOC: HO.LAB 11:52
PROVIDERS: PCP Family Medicine; Visit Provider Family Medicine
DX: E87.6 Hypokalemia (principal)
CPT/HCPCS: 36415; 83735; 84132

== ENCOUNTER 2021-08-23 10:37 | Inpatient (IN) | payer MEDICARE, SELFPAY ==
--- NOTE | ~2021-08-23 | NM_ITS ---
EXAMINATION: NM BONE SCAN OF THE WHOLE BODY CLINICAL INFORMATION: Elevated PSA, suspected prostate cancer. Hematuria. COMPARISON: No previous bone scan is available for comparison. Radiographs of the chest dated 08/23/2021 are available for comparison. TECHNIQUE: Multiple gamma scintillation camera images of the whole body were performed 3 hours following the intravenous administration of 25 mCi Tc-99m MDP. FINDINGS: In the head, no significant abnormalities are present. In the thoracic cage and upper extremities, there is moderately increased activity in the sternoclavicular joints bilaterally and mildly increased activity in the right glenohumeral articulation. Some residual radiopharmaceutical at the injection site in the soft tissues of the right forearm is noted. There is minimally increased activity diffusely in the right wrist. In the spine, there is minimal heterogeneity within the spine superimposed on a minimal thoracolumbar scoliosis with lumbar convexity to the right. In the pelvis, no significant abnormalities are present. In the lower extremities, foci of mildly increased activity are present in the patellar and medial compartments of the left knee and the left tibial tuberosity. Foci of mildly increased activity are present laterally in the mid feet bilaterally and very faintly in the left first metatarsophalangeal joint region. There is also focus of mildly increased activity in the right tibiotalar articulation. No other definite bony abnormalities are noted. The urinary bladder and faint visualization of both kidneys are noted. NM/NM bone scan whole body IMPRESSION: A few mild nonspecific abnormalities are noted as described above and these are all likely arthritic or traumatic in etiology. None of these abnormalities is strongly suspicious for metastatic disease.
--- NOTE | ~2021-08-23 | XR_ITS ---
EXAMINATION: XR CHEST CLINICAL INFORMATION: Shortness of breath. COMPARISON: 04/30/2021 chest radiographs. TECHNIQUE: 2 views of the chest were obtained. FINDINGS: The lungs are clear. A bone island overlying the posterolateral left fourth rib is again seen without interval change. The heart and mediastinal structures are unremarkable. A Cardiomems device overlies the left chest. XR/XR chest 2V IMPRESSION: No acute cardiopulmonary process.
[2021-08-23 10:52] VITALS: BP 104/68; PULSE 105; RESP 18; TEMP 36.6; O2SAT 100; BMI 28.3
--- NOTE | 2021-08-23 12:50 | ECG_ITS ---
Test Reason : DYSPNEA Blood Pressure : / mmHG Vent. Rate : 102 BPM Atrial Rate : 091 BPM P-R Int : 000 ms QRS Dur : 102 ms QT Int : 370 ms P-R-T Axes : 000 260 083 degrees QTc Int : 482 ms Accelerated Junctional rhythm Right superior axis deviation Pulmonary disease pattern Abnormal ECG When compared with ECG of 26-JUN-2021 17:06, Junctional rhythm has replaced Sinus rhythm Referred By: Rafia Packer Electronically Signed By:FERCHO WARNER
--- NOTE | 2021-08-23 13:03 | ED.SOB ---
HPI - SOB/Dyspnea General Chief Complaint: Dyspnea Stated Complaint: SOB Time Seen by Provider: 08/23/21 11:44 Source: patient and family Mode of arrival: ambulatory Limitations: no limitations History of Present Illness HPI Narrative: 76 yo male pmhx significant for CHF with CardioMEMS HF system, hx PAF on anticoaguluation, NSVT, SRINIVASA, HTN, CKD, DM on insulin, CAD presents to the emergency department with concerns of significant SOB last night, and bloody urine X4 days. He states that he suddenly became very short of breath last night before going to bed, it was worse when he was lying down better when he was sitting up. He states he usually uses a CPAP to sleep, however he was unable to use the CPAP, because it was making him more short of breath. He also reports 4 days of bloody urine, nothing like this has ever happened to him before. He is on Eliquis. He states the shortness or breath results he denies any pain at this time. He denies dysuria, chest pain, shortness of breath, fevers, chills, abdominal pain, weakness. MD elicited complaint: shortness of breath Pertinent past history: congestive heart failure and other (SRINIVASA) Onset (ago): hour(s) Timing: improved Severity: moderate Exacerbating factors: lying flat Relieving factors: nothing Known history of: congestive heart failure Associated symptoms: denies other symptoms Treatment prior to arrival: none Related Data Home oxygen amount: none Home Medications Medication Instructions Recorded Confirmed blood sugar diagnostic #10 05/13/21 08/13/21 lancets 33 gauge #100 05/13/21 08/13/21 pen needle, diabetic 31 gauge x #1200 05/13/21 08/13/21/ amiodarone 200 mg tablet 200 mg PO DAILY 08/23/21 08/23/21 apixaban 5 mg tablet (Eliquis) 5 mg PO BID 08/23/21 08/23/21 atorvastatin 40 mg tablet 40 mg PO QPM 08/23/21 08/23/21 budesonide 90 mcg/actuation breath 2 puff INHALATION BID 08/23/21 08/23/21 activated powder inhaler (Pulmicort Flexhaler) cholecalciferol (vitamin D3) 50 50 mcg PO QNOON 08/23/21 08/23/21 mcg (2,000 unit) capsule (Vitamin D3) dulaglutide 1.5 mg/0.5 mL 1.5 mg SUBCUT QWEEK 08/23/21 08/23/21 subcutaneous pen injector (Trulicity) insulin lispro 100 unit/mL 18 - 22 unit SUBCUT TID 08/23/21 08/23/21 subcutaneous pen (Humalog KwikPen (U-100) Insulin) metolazone 2.5 mg tablet 2.5 mg PO Q OTHER DAY 08/23/21 08/23/21 omeprazole 20 mg capsule,delayed 20 mg PO DAILY 08/23/21 08/23/21 release potassium chloride 20 mEq 40 meq PO QNOON 08/23/21 08/23/21 tablet,extended release(part/cryst) torsemide 20 mg tablet 20 mg PO QNOON 08/23/21 08/23/21 torsemide 20 mg tablet 40 mg PO DAILY 08/23/21 08/23/21 Allergies Allergy/AdvReac Type Severity Reaction Status Date / Time No Known Allergies Allergy Verified 08/13/21 12:44 [No Known Allergies*] Review of Systems Review of Systems: Constitutional: No Fever, No Chills ENT/Mouth: No sore throat, No Rhinorrhea, No Swallowing Difficulty Eyes: No Eye Pain, No Swelling, No Redness Cardiovascular: No Chest Pain, + SOB, + Orthopnea, No Edema Respiratory: No Cough, No Sputum, No Wheezing, No dyspnea Gastrointestinal: No Nausea, No Vomiting, No Diarrhea, No abdominal Pain, No Hematochezia, No Melena Genitourinary: No Dysuria, No Urinary Frequency, + Hematuria Musculoskeletal: No joint pain, No Myalgias Skin: No Skin Lesions, No rash Neuro: No Weakness, No Numbness, No Dizziness, No Headache PMFSH Past Medical History Medical History (Updated 08/23/21 @ 15:08 by GOLDIE Mccann) Acute on chronic combined systolic (congestive) and diastolic (congestive) heart failure CAD (coronary artery disease) Cardiomyopathy CKD (chronic kidney disease) stage 3, GFR 30-59 ml/min COVID-19 vaccine series completed Diabetes type 2, uncontrolled Diabetic polyneuropathy associated with type 2 diabetes mellitus Dyslipidemia Essential hypertension Heart failure with preserved ejection fraction History of cardioversion History of COVID-19 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 technician terminal and repeater (current) use of insulin Obesity (BMI 30-39.9) SRINIVASA (obstructive sleep apnea) Presence of CardioMEMS HF system Right hand pain Surgical History Hx of cardiac catheterization Hx of colonoscopy Family History Family History Father Heart disease Diabetes mellitus Mother Diabetes mellitus Social History Social History Household Members: Spouse Housing: [facility] Are you a primary childcare center director to a significant other at home: No Do you presently have visiting nurse or other home services: No Alcohol intake: never Patient Tobacco Use Status: Former Tobacco user Quit Date: 1979 Tobacco use type: Cigarette Years Smoked: 33 e-Cigarette/Vaping Use: Never Used Use of substances other than those prescribed or required for medical reasons: No Advance Directives: Yes Advance Directives Information Provided: Yes Advance Directives on File: No Advance Directives Date on File: 04/11/21 service: No Current occupational status: unemployed and retired Physical Exam Vital Signs: Vital Signs: Last Vital Signs Temp 97.5 F 08/23/21 13:41 Pulse 94 08/23/21 13:41 Resp 15 08/23/21 13:41 BP 106/69 08/23/21 13:41 Pulse Ox 99 08/23/21 13:41 Body Mass Index 28.3 Appearance: Alert. Oriented X3. No acute distress. Eyes: Pupils equal, round and reactive to light. ENT: Pharynx normal. Neck: Normal inspection. Neck supple. CVS: Normal heart rate and rhythm. Pulses normal. Respiratory: No respiratory distress. Breath sounds with expiratory wheezes throughout. Abdomen: Softly distended and nontender. with minor scattered ecchymosis. +BS x4 Skin: Skin warm and dry. Normal skin color. Normal skin turgor. No rashes. Extremities: 1+ bilateral lower extremity edema. Neuro: Oriented X 3. No motor deficit. No sensory deficit. Course Course Course Narrative: Patient continues denying CP and SOB despite his trop being elevated at 448.9 [address] 1447. TT Dr. Dudley who would like the patient admitted due to his complex medical history, he states he is unable to access his cardiomems until Wednesday. He also suggested giving IV diuretics - will start with 40 mg IV lasix x1, BP 100s. Will monitor closely. Family is aware of the plan. TT Dr. Worthy who dolly admit this patient. Consultations Consultation #1: Cardiology - Dr. Dudley MDM - SOB/Dyspnea MDM Narrative Medical decision making narrative: 76 yo male pmhx significant for CHF with CardioMEMS HF system, SRINIVASA, HTN, CKD, DM, CAD presents to the emergency department with concers of SOB last night, and bloody urine X4 days. He states the SOB is worse when laying down. He is on Eliquis. He is not a smoker. Plan- EKG, CXR, BMP, mag, BNP,CBC,covid, Liver, trop, UA Lab Data Result diagrams: 08/23/21 13:07 08/23/21 13:07 Labs: Lab Results 08/23/21 08/23/21 08/23/21 Range/Units 13:07 13:07 13:07 WBC 10.5 (4.8-10.8) X10*3/uL RBC 4.41 L (4.60-5.80) X10*6/uL Hgb 12.2 L (14.0-18.0) g/dl Hct 38.9 L (42-52) % MCV 88.2 (80-98) fL MCH 27.7 (27.0-33.0) pg MCHC 31.4 (31.0-36.0) g/dl RDW 16.7 H (11.0-16.0) % Plt Count 240 (160-400) X10*3/uL MPV 11.0 (9.4-12.4) fL Immature Gran % (Auto) 0.3 (0.0-0.4) % Neut % (Auto) 70.0 (45-73) % Lymph % (Auto) 15.7 L (20-40) % [place] % (Auto) 10.0 (2-11) % Eos % (Auto) 3.5 (0-4) % Baso % (Auto) 0.5 (0-2) % Lymph # (Auto) 1.6 (1.2-4.9) X10*3/uL [place] # (Auto) 1.1 (0.1-1.2) X10*3/uL Eos # (Auto) 0.4 (0.0-0.4) X10*3/uL Baso # (Auto) 0.1 (0.0-0.2) X10*3/uL Abs Immat Gran (auto) 0.03 (0.00-0.03) X10*3/uL Absolute Neuts (auto) 7.3 (2.0-8.3) X10*3/uL Absolute Nucleated RBC 0.000 (0.0-0.012) X10*3/uL Nucleated RBC % (auto) 0.0 (0.0-0.2) /100WBC Sodium 142 (135-145) mmol/L Potassium 4.8 D (3.3-5.1) mmol/L Chloride 99 (96-108) mmol/L Carbon Dioxide 33 H (22-29) mmol/L Anion Gap 15 (12-20) BUN 74 H (9-16) mg/dL Creatinine 3.06 H (0.5-1.4) mg/dL Estim Creat Clear Calc 18.9 Estimated GFR 20 Random Glucose 79 D (60-115) mg/dL Calcium 10.2 D (8.4-10.2) mg/dL Magnesium 2.1 (1.6-2.6) mg/dL Total Bilirubin 1.0 (0.0-1.0) mg/dL Direct Bilirubin 0.6 H (0.0-0.5) mg/dL AST 28 (5-37) U/L ALT 50 H (0-40) U/L Alkaline Phosphatase 92 (39-117) U/L Troponin I High Sens (<3.5-35.0) ng/L B-Natriuretic Peptide (<100) pg/mL Total Protein 7.3 (6.5-8.0) g/dL Albumin 4.2 (3.5-5.0) g/dL Urine Color Urine Appearance Urine pH (5.0-8.0) Ur Specific [place] (1.005-1.025) Urine Protein (NEG-TRACE) MG/DL Urine Glucose (UA) (NEG) MG/DL Urine Ketones (NEG) MG/DL Urine Blood (NEG) Urine Nitrite (NEG) Ur Leukocyte Esterase (NEG) Urine RBC (0) /HPF Urine WBC (0-4) /HPF Ur Squamous Epith Cells /LPF Urine Bacteria /LPF COVID-19 (KATY) Negative (Negative) COVID-19 Clin Com See Note 08/23/21 08/23/21 Range/Units 13:07 13:07 WBC (4.8-10.8) X10*3/uL RBC (4.60-5.80) X10*6/uL Hgb (14.0-18.0) g/dl Hct (42-52) % MCV (80-98) fL MCH (27.0-33.0) pg MCHC (31.0-36.0) g/dl RDW (11.0-16.0) % Plt Count (160-400) X10*3/uL MPV (9.4-12.4) fL Immature Gran % (Auto) (0.0-0.4) % Neut % (Auto) (45-73) % Lymph % (Auto) (20-40) % [place] % (Auto) (2-11) % Eos % (Auto) (0-4) % Baso % (Auto) (0-2) % Lymph # (Auto) (1.2-4.9) X10*3/uL [place] # (Auto) (0.1-1.2) X10*3/uL Eos # (Auto) (0.0-0.4) X10*3/uL Baso # (Auto) (0.0-0.2) X10*3/uL Abs Immat Gran (auto) (0.00-0.03) X10*3/uL Absolute Neuts (auto) (2.0-8.3) X10*3/uL Absolute Nucleated RBC (0.0-0.012) X10*3/uL Nucleated RBC % (auto) (0.0-0.2) /100WBC Sodium (135-145) mmol/L Potassium (3.3-5.1) mmol/L Chloride (96-108) mmol/L Carbon Dioxide (22-29) mmol/L Anion Gap (12-20) BUN (9-16) mg/dL Creatinine (0.5-1.4) mg/dL Estim Creat Clear Calc Estimated GFR Random Glucose (60-115) mg/dL Calcium (8.4-10.2) mg/dL Magnesium (1.6-2.6) mg/dL Total Bilirubin (0.0-1.0) mg/dL Direct Bilirubin (0.0-0.5) mg/dL AST (5-37) U/L ALT (0-40) U/L Alkaline Phosphatase (39-117) U/L Troponin I High Sens 448.9 H* D (<3.5-35.0) ng/L B-Natriuretic Peptide 1447 H (<100) pg/mL Total Protein (6.5-8.0) g/dL Albumin (3.5-5.0) g/dL Urine Color YELLOW Urine Appearance CLEAR Urine pH 6.0 (5.0-8.0) Ur Specific [place] 1.010 (1.005-1.025) Urine Protein NEG (NEG-TRACE) MG/DL Urine Glucose (UA) NEG (NEG) MG/DL Urine Ketones NEG (NEG) MG/DL Urine Blood 2+ H (NEG) Urine Nitrite NEG (NEG) Ur Leukocyte Esterase NEG (NEG) Urine RBC 15-29 H (0) /HPF Urine WBC 0-2 (0-4) /HPF Ur Squamous Epith Cells TRACE /LPF Urine Bacteria NONE /LPF COVID-19 (KATY) (Negative) COVID-19 Clin Com ECG Data Attestation: I personally reviewed and interpreted this ECG as follows: ECG interpretation date: 08/23/21 Prior ECG tracings: available for review Interpretation: accelerated junctional rhythm, HR 102, no p waves present, QRS prolonged 102, no ST segment elevations or depression Critical Care Time Critical Care Time Critical Care Time: Yes Total Critical Care Time: 35 Attestation: I have personally provided critical care time exclusive of time spent on separately billable procedures. Time includes review of lab data, radiology results, discussion with consultants, and monitoring for potential decompensation. Intervention performed as documented. Discharge Plan Discharge Clinical Impression: Heart failure with preserved ejection fraction Patient Disposition: Admitted As Inpatient Prescriptions: No Action metolazone 2.5 mg Tablet 2.5 mg PO Q OTHER DAY RF: 0 atorvastatin 40 mg tablet 40 mg PO QPM RF: 0 torsemide 20 mg Tablet 20 mg PO QNOON RF: 0 torsemide 20 mg Tablet 40 mg PO DAILY RF: 0 amiodarone 200 mg Tablet 200 mg PO DAILY RF: 0 potassium chloride 20 mEq tablet,ER particles/crystals 40 meq PO QNOON RF: 0 omeprazole 20 mg Capsule,Delayed Release(Dr/Ec) 20 mg PO DAILY RF: 0 insulin lispro [Humalog KwikPen Insulin] 100 unit/mL insulin pen 18 - 22 unit subcut TID RF: 0 Pulmicort Flexhaler 90 mcg/actuation aerosol powdr breath activated 2 puff inhalation BID RF: 0 cholecalciferol (vitamin D3) [Vitamin D3] 50 mcg (2,000 unit) Capsule 50 mcg PO QNOON RF: 0 Eliquis 5 mg Tablet 5 mg PO BID RF: 0 Trulicity 1.5 mg/0.5 mL pen injector 1.5 mg subcut QWEEK RF: 0 (DME) lancets 33 gauge misc See Rx Instructions ea Not Applicable QID Qty: 100 RF: 0 (DME) blood sugar diagnostic Strip See Rx Instructions ea Not Applicable QID Qty: 10 RF: 0 (DME) pen needle, diabetic 31 gauge x 5/16 needle See Rx Instructions ea subcut .MEDSUPPLY Qty: 1200 RF: 0
[2021-08-23 13:14] LABS: MANUAL DIFF FLAG NO
[2021-08-23 13:16] LABS: Appearance Urine CLEAR; Basophils Absolute Auto 0.1 X10*3/uL (0.0-0.2); Basophils Percent Auto 0.5 % (0-2); Color Urine YELLOW; Eosinophils Absolute Auto 0.4 X10*3/uL (0.0-0.4); Eosinophils Percent Auto 3.5 % (0-4); Glucose Urine UA NEG (NEG); Hematocrit 38.9 % (42-52); Hemoglobin 12.2 g/dl (14.0-18.0); Imm Gran Abs Auto 0.03 X10*3/uL (0.00-0.03); Imm Gran Pct Auto 0.3 % (0.0-0.4); Leukocyte Esterase Urine NEG (NEG); Lymphocytes Absolute Auto 1.6 X10*3/uL (1.2-4.9); Lymphocytes Percent Auto 15.7 % (20-40); Mean Corpuscular HGB Conc 31.4 g/dl (31.0-36.0); Mean Corpuscular Hemoglobin 27.7 pg (27.0-33.0); Mean Corpuscular Volume 88.2 fL (80-98); Monocytes Absolute Auto 1.1 X10*3/uL (0.1-1.2); Neutrophils Absolute Auto 7.3 X10*3/uL (2.0-8.3); Nitrite Urine NEG (NEG); Platelet Count 240 X10*3/uL (160-400); Red Blood Count 4.41 X10*6/uL (4.60-5.80); Red Cell Distribution Width 16.7 % (11.0-16.0); UACC Culture Trigger NO; Urine Blood 2+ (NEG); Urine Ketones NEG (NEG); Urine Protein NEG (NEG-TRACE); White Blood Count 10.5 X10*3/uL (4.8-10.8)
[2021-08-23 13:29] LABS: COVID-19 Test Negative (Negative)
[2021-08-23 13:33] LABS: Alanine Aminotransferase 50 U/L (0-40); Albumin Level 4.2 g/dL (3.5-5.0); Alkaline Phosphatase 92 U/L (39-117); Anion Gap 15 (12-20); Aspartate Amino Transferase 28 U/L (5-37); Bilirubin Direct 0.6 mg/dL (0.0-0.5); Blood Urea Nitrogen 74 mg/dL (9-16); Calcium 10.2 mg/dL (8.4-10.2); Carbon Dioxide 33 mmol/L (22-29); Chloride 99 mmol/L (96-108); Creatinine Clr Calc Pharmacy 18.9; Estimated Glomerular Filt Rate 20; Glucose Random 79 mg/dL (60-115); Magnesium 2.1 mg/dL (1.6-2.6); Potassium 4.8 mmol/L (3.3-5.1); Sodium 142 mmol/L (135-145); Total Protein 7.3 g/dL (6.5-8.0)
[2021-08-23 13:41] VITALS: BP 106/69; PULSE 94; RESP 15; TEMP 36.4; O2SAT 99
[2021-08-23 13:41] LABS: B Type Natriuretic Peptide 1447 pg/mL (<100); Troponin-I High Sensitivity 448.9 ng/L (<3.5-35.0)
[2021-08-23 13:43] LABS: Squamous Epithelial Cell Urine TRACE /LPF; WBC Urine 0-2 /HPF (0-4)
[2021-08-23 15:08] VITALS: BP 112/63; PULSE 93; RESP 16; O2SAT 98
[2021-08-23] MEDS: Furosemide 40 MG/4 ML VIAL IVPUSH (15:08)
--- NOTE | 2021-08-23 15:39 | PM.IMHP ---
History of Present Illness Date of Service: 08/23/21 <Chen Rob NP - Last Filed: 08/23/21 15:48> Chief Complaint: Shortness of breath <Chen Rob NP - Last Filed: 08/23/21 15:48> 72-year-old Filipino-speaking male presented to the ER with complaints of shortness of breath overnight. He reports that he woke up with some pressure to his left arm that lasted for few minutes and went away on its own but he did develop some shortness of breath especially with ambulation and orthopnea. He denied chest pain, nausea, vomiting, diarrhea, recent illness. He does have a history of heart failure and is on torsemide and Zaroxolyn at home. He also reported some bloody urine that has been ongoing for about a month and he was scheduled to see a urologist. In his chart does look like he had a PSA drawn on August 13 which was elevated at 63.44. His troponin was also elevated at 448.9 however this is normally pretty elevated. BNP 1447, creatinine 3.06. Other than that vital signs are stable. In the ER he was given IV Lasix. He will be admitted for further management and treatment of acute on chronic congestive heart failure with hematuria. <Chen Rob NP - Last Filed: 08/23/21 15:48> Review of Systems Review of Systems: Denies any recent fever chills or decrease in appetite respiratory See HPI cardiovascular denies chest pain gastrointestinal denies any dysphagia abdominal pain nausea vomiting or diarrhea genitourinary see HPI musculoskeletal denies any joint pain or swelling neuropsych denies any weakness or seizures all other systems reviewed are negative <Chen Rob NP - Last Filed: 08/23/21 15:48> [facility], [facility] Medical History: Medical History (Updated 08/24/21 @ 11:25 by Jas Dudley MD) CAD (coronary artery disease) Cardiomyopathy CKD (chronic kidney disease) stage 3, GFR 30-59 ml/min COVID-19 vaccine series completed Diabetic polyneuropathy associated with type 2 diabetes mellitus Dyslipidemia Essential hypertension Heart failure with preserved ejection fraction History of cardioversion History of COVID-19 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 Obesity (BMI 30-39.9) SRINIVASA (obstructive sleep apnea) Presence of CardioMEMS HF system <Chen Rob NP - Last Filed: 08/23/21 15:48> Family History: Family History Father Heart disease Diabetes mellitus Mother Diabetes mellitus <Chen Rob NP - Last Filed: 08/23/21 15:48> Pertinent family history: . <Chen Rob NP - Last Filed: 08/23/21 15:48> Surgical History: Surgical History Hx of cardiac catheterization Hx of colonoscopy <Chen Rob NP - Last Filed: 08/23/21 15:48> Social History: Social History Household Members: Spouse Housing: House Are you a primary ambulatory care nurse to a significant other at home: No Do you presently have visiting nurse or other home services: No Alcohol intake: never Patient Tobacco Use Status: Former Tobacco user Quit Date: 1979 Tobacco use type: Cigarette Years Smoked: 33 e-Cigarette/Vaping Use: Never Used Use of substances other than those prescribed or required for medical reasons: No Currently Displaying Signs/Symptoms of Drug Intoxication Withdrawal: No Have you been hit, kicked, punched, or otherwise hurt by someone within the past year? If so, by whom?: No Do you feel safe in your current relationship?: Yes Is there a partner from a previous relationship who is making you feel unsafe now?: No Are you made to feel afraid or neglected: No Advance Directives: Yes Advance Directives Information Provided: Yes Advance Directives on File: No Advance Directives Date on File: 08/23/21 Do you have thoughts of harming others: None Do you have a plan to hurt others: No Plan Recently lost weight without trying: Unsure Nutrition Risks: No Nutritional Risk Poor oral hygiene: No service: No Current occupational status: unemployed and retired <Chen Rob NP - Last Filed: 08/23/21 15:48> Meds Allergies/Adverse reactions: Allergies Allergy/AdvReac Type Severity Reaction Status Date / Time No Known Allergies Allergy Verified 08/13/21 12:44 [No Known Allergies*] <Chen Rob NP - Last Filed: 08/23/21 15:48> Active Medications: Current Medications Acetaminophen (Acetaminophen 325 Mg Tablet) 650 mg PO Q6H PRN PRN Reason: Pain, Mild (Pain Scale 1-3) Amiodarone HCl (Amiodarone Hcl 200 Mg Tablet) 200 mg PO DAILY [facility] Atorvastatin Calcium (Atorvastatin Calcium 40 Mg Tablet) 40 mg PO BEDTIME [facility] Dextrose (Dextrose 50 % 25 Gm/50 Ml Vial) 25 gm IVPUSH Q15M PRN; Protocol PRN Reason: per Hypoglycemia Standing Ord. Furosemide (Furosemide 40 Mg/4 Ml Vial) 40 mg IVPUSH BID@0900,1800 [facility]; Protocol Glucose (Glucose Gel 15 Gm Gel..Gram.) 15 gm PO Q15M PRN; Protocol PRN Reason: per Hypoglycemia Standing Ord. Insulin Human Lispro (Insulin Lispro 100 Unit/Ml 3 Ml Vial) 0 unit SUBCUT QIDACHS [facility]; Protocol Metolazone (Metolazone 2.5 Mg Tablet) 2.5 mg PO Q OTHER DAY [facility] Non-Formulary Medication (Budesonide [Pulmicort Flexhaler]) 2 puff INHALE BID [facility] Omeprazole (Omeprazole 20 Mg Capsule.Dr) 20 mg PO DAILY [facility] Ondansetron HCl (Ondansetron Hcl 4 Mg/2 Ml Vial) 4 mg IVPUSH Q8H PRN PRN Reason: Nausea and Vomiting Pharmacy Consult (Consult Rx Perform Med Rec) 1 each MISCELLANE ONCE PRN PRN Reason: Consult order Potassium Chloride (Potassium Chloride Er 20 Meq Tab.Er.Prt) 40 meq PO QNOON [facility] Sodium Chloride (0.9 % Sodium Chloride Flush 3 Ml Syringe) 3 ml IVFLUSH QSHIFT [facility] Vitamin D (Cholecalciferol (Vitamin D3) 25 Mcg Tablet) 50 mcg PO DAILY@1200 [facility] <Chen Rob NP - Last Filed: 08/23/21 15:48> Home medications: Home Medications Medication Instructions Recorded Confirmed Last Taken Type blood sugar diagnostic #10 ea 05/13/21 08/13/21 Unknown History lancets 33 gauge #100 ea 05/13/21 08/13/21 Unknown History pen needle, diabetic 31 gauge x #1200 ea 05/13/21 08/13/21 Unknown History /16 amiodarone 200 mg tablet 200 mg PO DAILY 08/23/21 08/23/21 Unknown History apixaban 5 mg tablet (Eliquis) 5 mg PO BID 08/23/21 08/23/21 Unknown History atorvastatin 40 mg tablet 40 mg PO QPM 08/23/21 08/23/21 Unknown History budesonide 90 mcg/actuation breath 2 puff INHALATION BID 08/23/21 08/23/21 Unknown History activated powder inhaler (Pulmicort Flexhaler) cholecalciferol (vitamin D3) 50 50 mcg PO QNOON 08/23/21 08/23/21 Unknown History mcg (2,000 unit) capsule (Vitamin D3) dulaglutide 1.5 mg/0.5 mL 1.5 mg SUBCUT QWEEK 08/23/21 08/23/21 Unknown History subcutaneous pen injector (Trulicity) insulin lispro 100 unit/mL 18 - 22 unit SUBCUT TID 08/23/21 08/23/21 Unknown History subcutaneous pen (Humalog KwikPen (U-100) Insulin) metolazone 2.5 mg tablet 2.5 mg PO Q OTHER DAY 08/23/21 08/23/21 Unknown History omeprazole 20 mg capsule,delayed 20 mg PO DAILY 08/23/21 08/23/21 Unknown History release potassium chloride 20 mEq 40 meq PO QNOON 08/23/21 08/23/21 Unknown History tablet,extended release(part/cryst) torsemide 20 mg tablet 20 mg PO QNOON 08/23/21 08/23/21 Unknown History torsemide 20 mg tablet 40 mg PO DAILY 08/23/21 08/23/21 Unknown History <Chen Rob NP - Last Filed: 08/23/21 15:48> Physical Exam Vital Signs and Narrative: Vital Signs: Last Vital Signs Temp 97.5 F 08/23/21 13:41 Pulse 93 08/23/21 15:08 Resp 16 08/23/21 15:08 BP 112/63 08/23/21 15:08 Pulse Ox 98 08/23/21 15:08 Body Mass Index 28.3 <Chen Rob NP - Last Filed: 08/23/21 15:48> Appearing in no acute distress head is normocephalic atraumatic eyes pupils are PERRLA sclera is anicteric mouth throat mucous membranes are intact and moist neck is supple no lymphadenopathy, no JVD noted lung sounds are clear to auscultation heart regular rate rhythm, clear S1, S2 positive bowel sounds, abdomen is soft, nontender neuro patient is alert x3, no focal deficits <Chen Rob NP - Last Filed: 08/23/21 15:48> Results Labs CBC and Chem 7: : 08/24/21 06:15 08/24/21 06:15 <Chen Rob MACHINE ADJUSTER - Last Filed: 08/23/21 15:48> Labs: Laboratory Results - last 24 hr 08/23/21 08/23/21 08/23/21 13:07 13:07 13:07 MCV 88.2 MCH 27.7 MCHC 31.4 RDW 16.7 H Plt Count 240 MPV 11.0 Immature Gran % (Auto) 0.3 Neut % (Auto) 70.0 Lymph % (Auto) 15.7 L [place] % (Auto) 10.0 Eos % (Auto) 3.5 Baso % (Auto) 0.5 Lymph # (Auto) 1.6 [place] # (Auto) 1.1 Eos # (Auto) 0.4 Baso # (Auto) 0.1 Abs Immat Gran (auto) 0.03 Absolute Neuts (auto) 7.3 Absolute Nucleated RBC 0.000 Nucleated RBC % (auto) 0.0 Anion Gap 15 Estim Creat Clear Calc 18.9 Estimated GFR 20 Random Glucose 79 D Calcium 10.2 D Magnesium 2.1 Total Bilirubin 1.0 Direct Bilirubin 0.6 H AST 28 ALT 50 H Alkaline Phosphatase 92 Troponin I High Sens B-Natriuretic Peptide Total Protein 7.3 Albumin 4.2 Urine Color Urine Appearance Urine pH Ur Specific [place]arton Urine Protein Urine Glucose (UA) Urine Ketones Urine Blood Urine Nitrite Ur Leukocyte Esterase Urine RBC Urine WBC Ur Squamous Epith Cells Urine Bacteria COVID-19 (KATY) Negative COVID-19 Clin Com See Note 08/23/21 08/23/21 13:07 13:07 MCV MCH MCHC RDW Plt Count MPV Immature Gran % (Auto) Neut % (Auto) Lymph % (Auto) [place] % (Auto) Eos % (Auto) Baso % (Auto) Lymph # (Auto) [place] # (Auto) Eos # (Auto) Baso # (Auto) Abs Immat Gran (auto) Absolute Neuts (auto) Absolute Nucleated RBC Nucleated RBC % (auto) Anion Gap Estim Creat Clear Calc Estimated GFR Random Glucose Calcium Magnesium Total Bilirubin Direct Bilirubin AST ALT Alkaline Phosphatase Troponin I High Sens 448.9 H* D B-Natriuretic Peptide 1447 H Total Protein Albumin Urine Color YELLOW Urine Appearance CLEAR Urine pH 6.0 Ur Specific [place]arton 1.010 Urine Protein NEG Urine Glucose (UA) NEG Urine Ketones NEG Urine Blood 2+ H Urine Nitrite NEG Ur Leukocyte Esterase NEG Urine RBC 15-29 H Urine WBC 0-2 Ur Squamous Epith Cells TRACE Urine Bacteria NONE COVID-19 (KATY) COVID-19 Clin Com <Chen Rob NP - Last Filed: 08/23/21 15:48> Imaging Radiologist's Impressions: Impressions Chest X-Ray 08/23/21 11:43 IMPRESSION: No acute cardiopulmonary process. <Chen Rob NP - Last Filed: 08/23/21 15:48> Assessment and Plan (1) Hematuria: Status: Acute <Chen Rob NP - Last Filed: 08/23/21 15:48> (2) Chronic heart failure with preserved ejection fraction (HFpEF): Status: Acute <Chen Rob NP - Last Filed: 08/23/21 15:48> (3) Obesity (BMI 30-39.9): Status: Acute <Chen Rob NP - Last Filed: 08/23/21 15:48> (4) CKD (chronic kidney disease) stage 3, GFR 30-59 ml/min: Qualifiers: Chronic kidney disease stage 3 subtype: stage 3b (GFR 30-44) Qualified Code(s): N18.32 - Chronic kidney disease, stage 3b <Chen Rob NP - Last Filed: 08/23/21 15:48> Status: Acute <Chen Rob NP - Last Filed: 08/23/21 15:48> (5) Diabetes mellitus: Status: Acute <Chen Rob NP - Last Filed: 08/23/21 15:48> 76-year-old Filipino-speaking male admitted with acute on chronic congestive heart failure and hematuria. Acute on chronic heart failure with preserved ejection fraction with history of grade 3 diastolic dysfunction, EF 50-55% Hold torsemide, start IV Lasix 40 mg b.i.d. Cardiology consultation Supplemental oxygen as needed Follow intake and output, daily weights Monitor on telemetry Hematuria. Elevated PSA, ? prostate ca Urology consultation Hold Eliquis for now Follow H&H closely and type and screen if necessary Alvaro on CKD, mild trend History of paroxysmal atrial fibrillation Hold Eliquis due to hematuria Continue amiodarone Diabetes mellitus Sliding scale, ADA diet Obesity. BMI 28.3 Discussed the importance of weight management as this may be contributing to worsening of other comorbidities DVT prophylaxis with mechanical compression boots Attending Bc Will Full code <Chen Rob NP - Last Filed: 08/23/21 15:48> 76-year-old Filipino-speaking male admitted with acute on chronic congestive heart failure and hematuria. Acute on chronic heart failure with preserved ejection fraction with history of grade 3 diastolic dysfunction, EF 50-55% Hold torsemide, start IV Lasix 40 mg b.i.d. Cardiology consultation Supplemental oxygen as needed Follow intake and output, daily weights Monitor on telemetry Hematuria. Elevated PSA, ? prostate ca Urology consultation Hold Eliquis for now Follow H&H closely and type and screen if necessary Alvaro on CKD, mild trend History of paroxysmal atrial fibrillation Hold Eliquis due to hematuria Continue amiodarone Diabetes mellitus Sliding scale, ADA diet Obesity. BMI 28.3 Discussed the importance of weight management as this may be contributing to worsening of other comorbidities DVT prophylaxis with mechanical compression boots Attending Bc Will Full code Addendum to history and physical by mid-level provider Gardenia Rob I interviewed and examined the patient. I discussed their presentation and management with the mid-level provider. I reviewed the history and physical and agree with the documentation, with the following additions and corrections: 76yo M with HFpEF [gr 3 diastolic dysfunction] presented with worsening dyspnea, orthopnea; also hematuria + elevated PSA. on apixaban for AF. On exam, in NAD, lungs clear, tachycardic without m/r/g, no edema Admit to C for IV diuresis. Consult Urology re: gross hematuria and hold apixaban. <Rosalva Yancey MD - Last Filed: 08/24/21 16:50> Quality Stroke Does the patient have a stroke diagnosis?: No <Chen Rob NP - Last Filed: 08/23/21 15:48> VTE Prior VTE?: No <Chen Rob NP - Last Filed: 08/23/21 15:48> VTE Risk Level:: Medical - moderate - high <Chen Rob NP - Last Filed: 08/23/21 15:48> VTE Device Contraindication: N/A - Device Ordered <Chen Rob NP - Last Filed: 08/23/21 15:48> VTE Drug Contraindication: Treatment Not Indicated <Chen Rob NP - Last Filed: 08/23/21 15:48>
[2021-08-23 15:56] LABS: D Dimer 405 NG/ML
--- NOTE | 2021-08-23 16:58 | PC.NURSE ---
call for report- rn to call back
[2021-08-23] MEDS: Cholecalciferol (Vitamin D3) 25 MCG TABLET 50 MCG PO (17:05)
[2021-08-23] MEDS: 0.9 % Sodium Chloride Flush 3 ML SYRINGE IVFLUSH ×2 (17:05→21:16)
[2021-08-23] MEDS: Potassium Chloride ER 20 MEQ TAB.ER.PRT 40 MEQ PO (17:05)
--- NOTE | 2021-08-23 17:40 | PC.NURSE ---
second attempt to give report, no answer
[2021-08-23 20:00] VITALS: BP 106/73; PULSE 99; RESP 18; TEMP 36.1; O2SAT 96
[2021-08-23] MEDS: Atorvastatin Calcium 40 MG TABLET PO (21:16)
[2021-08-23 21:36] LABS: Glucose, Whole Blood 114 mg/dL (60-115)
[2021-08-23 21:42] LABS: Glucose, Whole Blood 90 mg/dL (60-115)
[2021-08-24] VITALS (8 sets, daily range): BP systolic 91–113; BP diastolic 57–73; PULSE 71–99; RESP 18; TEMP 36.6–36.8; O2SAT 98–100
--- NOTE | 2021-08-24 | ECG_ITS ---
Test Reason : tachycardia Blood Pressure : / mmHG Vent. Rate : 091 BPM Atrial Rate : 258 BPM P-R Int : 000 ms QRS Dur : 096 ms QT Int : 396 ms P-R-T Axes : 000 269 069 degrees QTc Int : 487 ms Atrial fibrillation Right superior axis deviation Pulmonary disease pattern Prolonged QT Abnormal ECG When compared with ECG of 23-AUG-2021 13:01, Atrial fibrillation is now Present Referred By: Lexx Fisher Electronically Signed By:FERCHO WARNER
[2021-08-24 06:34] LABS: MANUAL DIFF FLAG NO
[2021-08-24 06:39] LABS: Basophils Absolute Auto 0.1 X10*3/uL (0.0-0.2); Basophils Percent Auto 0.5 % (0-2); Eosinophils Absolute Auto 0.5 X10*3/uL (0.0-0.4); Hematocrit 36.9 % (42-52); Hemoglobin 11.3 g/dl (14.0-18.0); Imm Gran Abs Auto 0.03 X10*3/uL (0.00-0.03); Imm Gran Pct Auto 0.3 % (0.0-0.4); Lymphocytes Absolute Auto 1.4 X10*3/uL (1.2-4.9); Lymphocytes Percent Auto 13.8 % (20-40); Mean Corpuscular HGB Conc 30.6 g/dl (31.0-36.0); Mean Corpuscular Volume 88.1 fL (80-98); Mean Platelet Volume 11.2 fL (9.4-12.4); Monocytes Absolute Auto 1.1 X10*3/uL (0.1-1.2); Monocytes Percent Auto 10.6 % (2-11); Neutrophils Percent Auto 69.8 % (45-73); Platelet Count 225 X10*3/uL (160-400); Red Blood Count 4.19 X10*6/uL (4.60-5.80); Red Cell Distribution Width 16.8 % (11.0-16.0)
[2021-08-24 06:57] LABS: Anion Gap 15 (12-20); Blood Urea Nitrogen 69 mg/dL (9-16); Calcium 9.5 mg/dL (8.4-10.2); Carbon Dioxide 32 mmol/L (22-29); Chloride 100 mmol/L (96-108); Creatinine Clr Calc Pharmacy 20.9; Estimated Glomerular Filt Rate 23; Glucose Random 84 mg/dL (60-115); Potassium 4.3 mmol/L (3.3-5.1); Sodium 143 mmol/L (135-145)
[2021-08-24 07:29] LABS: Glucose, Whole Blood 76 mg/dL (60-115)
[2021-08-24 09:14] LABS: B Type Natriuretic Peptide 1334 pg/mL (<100)
[2021-08-24] MEDS: Amiodarone HCL 200 MG TABLET PO (09:29)
[2021-08-24] MEDS: Omeprazole 20 MG CAPSULE.DR PO (09:29)
[2021-08-24] MEDS: 0.9 % Sodium Chloride Flush 3 ML SYRINGE IVFLUSH ×3 (09:29→21:38)
[2021-08-24] MEDS: Furosemide 40 MG/4 ML VIAL IVPUSH ×2 (09:30→16:45)
--- NOTE | 2021-08-24 11:19 | PM.CNCAR ---
History of Present Illness History of Present Illness Date of Service: 08/24/21 Chief complaint: CHF Narrative: This is a cardiology consultation regarding congestive heart failure. He is well known to us and is frequently seen in our practice. Most recently, seen by few days ago. Due to difficulty managing his congestive heart failure with recurrent hospitalizations, he received a CardioMEMS device recently. It seems that his diuretics have been changed and he is currently on torsemide per the last office reconciliation but patient states that he has not really been taking any diuretic at all. Hence a bit confused as to what is in the office med rec and what he is actually taking. In any case, he states that he still feels orthopneic and he cannot lie flat and every time he lies down he has to sit up so he could breathe. However, when he walks short distances he is generally okay. No anginal-type chest pains. Additionally, he has also been having a bloody urine and because of these reasons he was seen in the ER and eventually admitted. Review of Systems Review of Systems: Yes all other systems are reviewed and are negative Cardiovascular: Cardiovascular: Reports as per HPI, Reports no additional cardiovascular complaints, Denies acrocyanosis, Denies cool extremities, Denies painful fingertips, Denies chest pain, Denies chest pain at rest, Denies diaphoresis, Denies syncope, Denies irregular heart rhythm, Denies claudication, Reports leg edema, Denies lightheadedness, Denies palpitations and Reports dyspnea Respiratory: Respiratory: Reports dyspnea Neurologic: Denies syncope Endocrine: Endocrine: Denies palpitations [facility] Past Medical History Medical History (Updated 08/24/21 @ 11:25 by Jas Dudley MD) CAD (coronary artery disease) Cardiomyopathy CKD (chronic kidney disease) stage 3, GFR 30-59 ml/min COVID-19 vaccine series completed Diabetic polyneuropathy associated with type 2 diabetes mellitus Dyslipidemia Essential hypertension Heart failure with preserved ejection fraction History of cardioversion History of COVID-19 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 Obesity (BMI 30-39.9) SRINIVASA (obstructive sleep apnea) Presence of CardioMEMS HF system Family History Family History Father Heart disease Diabetes mellitus Mother Diabetes mellitus Surgical History Surgical History Hx of cardiac catheterization Hx of colonoscopy Social History Social History Household Members: Spouse Housing: House Are you a primary animal care taker to a significant other at home: No Do you presently have visiting nurse or other home services: No Alcohol intake: never Patient Tobacco Use Status: Former Tobacco user Quit Date: 1979 Tobacco use type: Cigarette Years Smoked: 33 e-Cigarette/Vaping Use: Never Used Use of substances other than those prescribed or required for medical reasons: No Currently Displaying Signs/Symptoms of Drug Intoxication Withdrawal: No Have you been hit, kicked, punched, or otherwise hurt by someone within the past year? If so, by whom?: No Do you feel safe in your current relationship?: Yes Is there a partner from a previous relationship who is making you feel unsafe now?: No Are you made to feel afraid or neglected: No Advance Directives: Yes Advance Directives Information Provided: Yes Advance Directives on File: No Advance Directives Date on File: 08/23/21 Do you have thoughts of harming others: None Do you have a plan to hurt others: No Plan Recently lost weight without trying: Unsure Nutrition Risks: No Nutritional Risk Poor oral hygiene: No service: No Current occupational status: unemployed and retired Meds Allergies Allergy/AdvReac Type Severity Reaction Status Date / Time No Known Allergies Allergy Verified 08/13/21 12:44 [No Known Allergies*] Active Medications: Current Medications Acetaminophen (Acetaminophen 325 Mg Tablet) 650 mg PO Q6H PRN PRN Reason: Pain, Mild (Pain Scale 1-3) Amiodarone HCl (Amiodarone Hcl 200 Mg Tablet) 200 mg PO DAILY KIM Last Admin: 08/24/21 09:29 Dose: 200 mg Documented by: Atorvastatin Calcium (Atorvastatin Calcium 40 Mg Tablet) 40 mg PO BEDTIME KIM Last Admin: 08/23/21 21:16 Dose: 40 mg Documented by: Dextrose (Dextrose 50 % 25 Gm/50 Ml Vial) 25 gm IVPUSH Q15M PRN; Protocol PRN Reason: per Hypoglycemia Standing Ord. Furosemide (Furosemide 40 Mg/4 Ml Vial) 40 mg IVPUSH BID@0900,1800 KIM; Protocol Last Admin: 08/24/21 09:30 Dose: 40 mg Documented by: Glucose (Glucose Gel 15 Gm Gel..Gram.) 15 gm PO Q15M PRN; Protocol PRN Reason: per Hypoglycemia Standing Ord. Insulin Human Lispro (Insulin Lispro 100 Unit/Ml 3 Ml Vial) 0 unit SUBCUT QIDACHS COUNTS INCLUDE 234 BEDS AT THE [facility]; Protocol Last Admin: 08/24/21 07:33 Dose: Not Given Documented by: Metolazone (Metolazone 2.5 Mg Tablet) 2.5 mg PO MoWeFr COUNTS INCLUDE 234 BEDS AT THE [facility] Non-Formulary Medication (Budesonide [Pulmicort Flexhaler]) 2 puff INHALE BID COUNTS INCLUDE 234 BEDS AT THE [facility] Omeprazole (Omeprazole 20 Mg Capsule.Dr) 20 mg PO DAILY COUNTS INCLUDE 234 BEDS AT THE [facility] Last Admin: 08/24/21 09:29 Dose: 20 mg Documented by: Ondansetron HCl (Ondansetron Hcl 4 Mg/2 Ml Vial) 4 mg IVPUSH Q8H PRN PRN Reason: Nausea and Vomiting Pharmacy Consult (Consult Rx Perform Med Rec) 1 each MISCELLANE ONCE PRN PRN Reason: Consult order Potassium Chloride (Potassium Chloride Er 20 Meq Tab.Er.Prt) 40 meq PO DAILY@1200 COUNTS INCLUDE 234 BEDS AT THE [facility] Last Admin: 08/23/21 17:05 Dose: 40 meq Documented by: Sodium Chloride (0.9 % Sodium Chloride Flush 3 Ml Syringe) 3 ml IVFLUSH QSHIFT COUNTS INCLUDE 234 BEDS AT THE [facility] Last Admin: 08/24/21 09:29 Dose: 3 ml Documented by: Vitamin D (Cholecalciferol (Vitamin D3) 25 Mcg Tablet) 50 mcg PO DAILY@1200 COUNTS INCLUDE 234 BEDS AT THE [facility] Last Admin: 08/23/21 17:05 Dose: 50 mcg Documented by: Home Medications Medication Instructions Recorded Confirmed Last Taken Type blood sugar diagnostic #10 ea 05/13/21 08/13/21 Unknown History lancets 33 gauge #100 ea 05/13/21 08/13/21 Unknown History pen needle, diabetic 31 gauge x #1200 ea 05/13/21 08/13/21 Unknown History 04/06 amiodarone 200 mg tablet 200 mg PO DAILY 08/23/21 08/23/21 Unknown History apixaban 5 mg tablet (Eliquis) 5 mg PO BID 08/23/21 08/23/21 Unknown History atorvastatin 40 mg tablet 40 mg PO QPM 08/23/21 08/23/21 Unknown History budesonide 90 mcg/actuation breath 2 puff INHALATION BID 08/23/21 08/23/21 Unknown History activated powder inhaler (Pulmicort Flexhaler) cholecalciferol (vitamin D3) 50 50 mcg PO QNOON 08/23/21 08/23/21 Unknown History mcg (2,000 unit) capsule (Vitamin D3) dulaglutide 1.5 mg/0.5 mL 1.5 mg SUBCUT QWEEK 08/23/21 08/23/21 Unknown History subcutaneous pen injector (Trulicity) insulin lispro 100 unit/mL 18 - 22 unit SUBCUT TID 08/23/21 08/23/21 Unknown History subcutaneous pen (Humalog KwikPen (U-100) Insulin) metolazone 2.5 mg tablet 2.5 mg PO Q OTHER DAY 08/23/21 08/23/21 Unknown History omeprazole 20 mg capsule,delayed 20 mg PO DAILY 08/23/21 08/23/21 Unknown History release potassium chloride 20 mEq 40 meq PO QNOON 08/23/21 08/23/21 Unknown History tablet,extended release(part/cryst) torsemide 20 mg tablet 20 mg PO QNOON 08/23/21 08/23/21 Unknown History torsemide 20 mg tablet 40 mg PO DAILY 08/23/21 08/23/21 Unknown History Physical Exam Vital Signs: Vital Signs: Last Vital Signs Temp 97.8 F 08/24/21 07:45 Pulse 78 08/24/21 09:29 Resp 18 08/24/21 07:45 BP 107/70 08/24/21 09:29 Pulse Ox 98 08/24/21 07:45 Body Mass Index 28.3 Const: General: cooperative and no acute distress HENMT: Other: Unremarkable Neck: Neck: Yes normal visual inspection Chest: Chest palpation & inspection: normal inspection of the chest Resp: Auscultation: crackles (bilateral inspiratory) and wheezes Cardio: Jugular venous distension: no JVD Palpation: normal PMI Heart sounds: S1 normal heart sound present, S2 normal heart sound present, no gallops, no murmurs and no rubs GI: Palpation (GI): Soft to palpation Back/Spine/Pelvis: Other: unremarkable Skin: General skin exam: no rashes or lesions noted Neuro: Cranial nerves: Yes Other cranial nerve findings present Extrem: General: Yes pedal edema (trace) Psych: Mental Status: other Results Labs and Meds Result diagrams: 08/24/21 06:15 08/24/21 06:15 Lab results: Laboratory Results - last 24 hr 08/23/21 08/23/21 08/23/21 13:07 13:07 13:07 WBC 10.5 RBC 4.41 L Hgb 12.2 L Hct 38.9 L MCV 88.2 MCH 27.7 MCHC 31.4 RDW 16.7 H Plt Count 240 MPV 11.0 Immature Gran % (Auto) 0.3 Neut % (Auto) 70.0 Lymph % (Auto) 15.7 L [place] % (Auto) 10.0 Eos % (Auto) 3.5 Baso % (Auto) 0.5 Lymph # (Auto) 1.6 [place] # (Auto) 1.1 Eos # (Auto) 0.4 Baso # (Auto) 0.1 Abs Immat Gran (auto) 0.03 Absolute Neuts (auto) 7.3 Absolute Nucleated RBC 0.000 Nucleated RBC % (auto) 0.0 D-Dimer Sodium 142 Potassium 4.8 D Chloride 99 Carbon Dioxide 33 H Anion Gap 15 BUN 74 H Creatinine 3.06 H Estim Creat Clear Calc 18.9 Estimated GFR 20 POC Glucose Random Glucose 79 D Calcium 10.2 D Magnesium 2.1 Total Bilirubin 1.0 Direct Bilirubin 0.6 H AST 28 ALT 50 H Alkaline Phosphatase 92 Troponin I High Sens B-Natriuretic Peptide Total Protein 7.3 Albumin 4.2 Urine Color Urine Appearance Urine pH Ur Specific [place] Urine Protein Urine Glucose (UA) Urine Ketones Urine Blood Urine Nitrite Ur Leukocyte Esterase Urine RBC Urine WBC Ur Squamous Epith Cells Urine Bacteria COVID-19 (KATY) Negative COVID-19 Clin Com See Note 08/23/21 08/23/21 08/23/21 13:07 13:07 15:42 WBC RBC Hgb Hct MCV MCH MCHC RDW Plt Count MPV Immature Gran % (Auto) Neut % (Auto) Lymph % (Auto) [place] % (Auto) Eos % (Auto) Baso % (Auto) Lymph # (Auto) [place] # (Auto) Eos # (Auto) Baso # (Auto) Abs Immat Gran (auto) Absolute Neuts (auto) Absolute Nucleated RBC Nucleated RBC % (auto) D-Dimer 405 Sodium Potassium Chloride Carbon Dioxide Anion Gap BUN Creatinine Estim Creat Clear Calc Estimated GFR POC Glucose Random Glucose Calcium Magnesium Total Bilirubin Direct Bilirubin AST ALT Alkaline Phosphatase Troponin I High Sens 448.9 H* D B-Natriuretic Peptide 1447 H Total Protein Albumin Urine Color YELLOW Urine Appearance CLEAR Urine pH 6.0 Ur Specific [place] 1.010 Urine Protein NEG Urine Glucose (UA) NEG Urine Ketones NEG Urine Blood 2+ H Urine Nitrite NEG Ur Leukocyte Esterase NEG Urine RBC 15-29 H Urine WBC 0-2 Ur Squamous Epith Cells TRACE Urine Bacteria NONE COVID-19 (KATY) COVID-19 [employer] 08/23/21 08/23/21 08/24/21 18:36 21:16 06:15 WBC 10.0 RBC 4.19 L Hgb 11.3 L Hct 36.9 L MCV 88.1 MCH 27.0 MCHC 30.6 L RDW 16.8 H Plt Count 225 MPV 11.2 Immature Gran % (Auto) 0.3 Neut % (Auto) 69.8 Lymph % (Auto) 13.8 L [place] % (Auto) 10.6 Eos % (Auto) 5.0 H Baso % (Auto) 0.5 Lymph # (Auto) 1.4 [place] # (Auto) 1.1 Eos # (Auto) 0.5 H Baso # (Auto) 0.1 Abs Immat Gran (auto) 0.03 Absolute Neuts (auto) 7.0 Absolute Nucleated RBC 0.000 Nucleated RBC % (auto) 0.0 D-Dimer Sodium Potassium Chloride Carbon Dioxide Anion Gap BUN Creatinine Estim Creat Clear Calc Estimated GFR POC Glucose 90 114 Random Glucose Calcium Magnesium Total Bilirubin Direct Bilirubin AST ALT Alkaline Phosphatase Troponin I High Sens B-Natriuretic Peptide Total Protein Albumin Urine Color Urine Appearance Urine pH Ur Specific [place] Urine Protein Urine Glucose (UA) Urine Ketones Urine Blood Urine Nitrite Ur Leukocyte Esterase Urine RBC Urine WBC Ur Squamous Epith Cells Urine Bacteria COVID-19 (KATY) COVID-19 [employer] 08/24/21 08/24/21 08/24/21 06:15 06:15 07:20 WBC RBC Hgb Hct MCV MCH MCHC RDW Plt Count MPV Immature Gran % (Auto) Neut % (Auto) Lymph % (Auto) [place] % (Auto) Eos % (Auto) Baso % (Auto) Lymph # (Auto) [place] # (Auto) Eos # (Auto) Baso # (Auto) Abs Immat Gran (auto) Absolute Neuts (auto) Absolute Nucleated RBC Nucleated RBC % (auto) D-Dimer Sodium 143 Potassium 4.3 Chloride 100 Carbon Dioxide 32 H Anion Gap 15 BUN 69 H Creatinine 2.76 H Estim Creat Clear Calc 20.9 Estimated GFR 23 POC Glucose 76 Random Glucose 84 Calcium 9.5 D Magnesium Total Bilirubin Direct Bilirubin AST ALT Alkaline Phosphatase Troponin I High Sens B-Natriuretic Peptide 1334 H Total Protein Albumin Urine Color Urine Appearance Urine pH Ur Specific [place] Urine Protein Urine Glucose (UA) Urine Ketones Urine Blood Urine Nitrite Ur Leukocyte Esterase Urine RBC Urine WBC Ur Squamous Epith Cells Urine Bacteria COVID-19 (KATY) COVID-19 Clin Com ECG Interpretation: EKG is difficult to read but based on the telemetry: Rhythm appears to be sinus with a first-degree heart block. Imaging Radiologist's impression: Impressions Chest X-Ray 08/23/21 11:43 IMPRESSION: No acute cardiopulmonary process. Assessment and Plan (1) Acute on chronic diastolic (congestive) heart failure: Status: Acute (2) Presence of CardioMEMS HF system: Status: Acute (3) PAF (paroxysmal atrial fibrillation): Status: Acute Labs reviewed. Most recent BUN is 69. Creatinine is 2.76. Cardiac BNP is 1334. Last month, it was 895. High sensitive troponins are elevated at 448. In June it was more than a 1000 and hence is actually lower. Clinically, he has some volume overload but more importantly, from symptom standpoint he still has orthopnea. Cardiac catheterization from 2018 showed mid RCA 50% stenosis but no significant disease otherwise. Most recent echocardiogram shows LVEF of 55% but advanced diastolic dysfunction but no evidence of any pulmonary hypertension. In the past, it has been much lower in the context of atrial fibrillation. He did undergo cardioversion for atrial fibrillation/acute heart failure few months ago. At the current time, unable to recommend any diuretic regimen as per patient he does not take anything at all these days. Hence would like to clarify this with our nurse practitioner on Wednesday as to what changes have been made recently based on CardioMEMS. In the interim, based on orthopnea and mild fluid overload, may use IV diuretics at least another day. With regard to the hematuria, he needs to see Urology. If feasible obtains consultation as an inpatient due to his complex medical issues. Will follow-up with you tomorrow. Procedures Date of Service Date of Service: 08/24/21
--- NOTE | 2021-08-24 11:20 | PM.IMPN ---
Progress Note: A&P (1) Acute on chronic diastolic (congestive) heart failure: Status: Acute (2) Hematuria: Status: Acute (3) CKD (chronic kidney disease) stage 3, GFR 30-59 ml/min: Status: Acute Assessment and Plan: 76-year-old Urdu-speaking male admitted with acute on chronic congestive heart failure and hematuria.? Acute on chronic heart failure with preserved ejection fraction with history of grade 3 diastolic dysfunction, EF 50-55% Hold torsemide, start IV Lasix 40 mg b.i.d. Cardiology consultation Supplemental oxygen as needed Follow intake and output, daily weights Monitor on telemetry Hematuria.? Elevated PSA, ? prostate ca Urology consultation Hold Eliquis for now Follow H&H closely and type and screen if necessary Alvaro on CKD, mild trend History of paroxysmal atrial fibrillation Hold Eliquis due to hematuria Continue amiodarone Diabetes mellitus Sliding scale, ADA diet Obesity.? BMI 28.3 Discussed the importance of weight management as this may be contributing to worsening of other comorbidities DVT prophylaxis with mechanical compression boots Attending Dr. Worthy Full code Subjective Subjective Date of Service: 08/24/21 Review of Systems Follow up CHF, hematuria no blood in urine breathing is better Physical Exam Vital Signs: Vital Signs: Last Vital Signs Temp 97.8 F 08/24/21 07:45 Pulse 78 08/24/21 09:29 Resp 18 08/24/21 07:45 BP 107/70 08/24/21 09:29 Pulse Ox 98 08/24/21 07:45 Body Mass Index 28.3 Appearing in no acute distress lung sounds clear heart regular rate rhythm, clear S1, S2 positive bowel sounds, abdomen is soft, nontender neuro patient is alert x3, no focal deficits Objective Data Current Medications Acetaminophen (Acetaminophen 325 Mg Tablet) 650 mg PO Q6H PRN PRN Reason: Pain, Mild (Pain Scale 1-3) Amiodarone HCl (Amiodarone Hcl 200 Mg Tablet) 200 mg PO DAILY [facility] Last Admin: 08/24/21 09:29 Dose: 200 mg Documented by: Atorvastatin Calcium (Atorvastatin Calcium 40 Mg Tablet) 40 mg PO BEDTIME KIM Last Admin: 08/23/21 21:16 Dose: 40 mg Documented by: Dextrose (Dextrose 50 % 25 Gm/50 Ml Vial) 25 gm IVPUSH Q15M PRN; Protocol PRN Reason: per Hypoglycemia Standing Ord. Furosemide (Furosemide 40 Mg/4 Ml Vial) 40 mg IVPUSH BID@0900,1800 [facility]; Protocol Last Admin: 08/24/21 09:30 Dose: 40 mg Documented by: Glucose (Glucose Gel 15 Gm Gel..Gram.) 15 gm PO Q15M PRN; Protocol PRN Reason: per Hypoglycemia Standing Ord. Insulin Human Lispro (Insulin Lispro 100 Unit/Ml 3 Ml Vial) 0 unit SUBCUT QIDACHS [facility]; Protocol Last Admin: 08/24/21 07:33 Dose: Not Given Documented by: Metolazone (Metolazone 2.5 Mg Tablet) 2.5 mg PO MoWeFr [facility] Non-Formulary Medication (Budesonide [Pulmicort Flexhaler]) 2 puff INHALE BID [facility] Omeprazole (Omeprazole 20 Mg Capsule.Dr) 20 mg PO DAILY [facility] Last Admin: 08/24/21 09:29 Dose: 20 mg Documented by: Ondansetron HCl (Ondansetron Hcl 4 Mg/2 Ml Vial) 4 mg IVPUSH Q8H PRN PRN Reason: Nausea and Vomiting Pharmacy Consult (Consult Rx Perform Med Rec) 1 each MISCELLANE ONCE PRN PRN Reason: Consult order Potassium Chloride (Potassium Chloride Er 20 Meq Tab.Er.Prt) 40 meq PO DAILY@1200 [facility] Last Admin: 08/23/21 17:05 Dose: 40 meq Documented by: Sodium Chloride (0.9 % Sodium Chloride Flush 3 Ml Syringe) 3 ml IVFLUSH QSHIFT [facility] Last Admin: 08/24/21 09:29 Dose: 3 ml Documented by: Vitamin D (Cholecalciferol (Vitamin D3) 25 Mcg Tablet) 50 mcg PO DAILY@1200 [facility] Last Admin: 08/23/21 17:05 Dose: 50 mcg Documented by: Labs CBC & Chem 7: 08/24/21 06:15 08/24/21 06:15 Labs: Laboratory Results - last 24 hr 08/23/21 08/23/21 08/23/21 13:07 13:07 13:07 MCV 88.2 MCH 27.7 MCHC 31.4 RDW 16.7 H Plt Count 240 MPV 11.0 Immature Gran % (Auto) 0.3 Neut % (Auto) 70.0 Lymph % (Auto) 15.7 L [place] % (Auto) 10.0 Eos % (Auto) 3.5 Baso % (Auto) 0.5 Lymph # (Auto) 1.6 [place] # (Auto) 1.1 Eos # (Auto) 0.4 Baso # (Auto) 0.1 Abs Immat Gran (auto) 0.03 Absolute Neuts (auto) 7.3 Absolute Nucleated RBC 0.000 Nucleated RBC % (auto) 0.0 D-Dimer Anion Gap 15 Estim Creat Clear Calc 18.9 Estimated GFR 20 POC Glucose Random Glucose 79 D Calcium 10.2 D Magnesium 2.1 Total Bilirubin 1.0 Direct Bilirubin 0.6 H AST 28 ALT 50 H Alkaline Phosphatase 92 Troponin I High Sens B-Natriuretic Peptide Total Protein 7.3 Albumin 4.2 Urine Color Urine Appearance Urine pH Ur Specific [place] Urine Protein Urine Glucose (UA) Urine Ketones Urine Blood Urine Nitrite Ur Leukocyte Esterase Urine RBC Urine WBC Ur Squamous Epith Cells Urine Bacteria COVID-19 (KATY) Negative COVID-19 Clin Com See Note 08/23/21 08/23/21 08/23/21 13:07 13:07 15:42 MCV MCH MCHC RDW Plt Count MPV Immature Gran % (Auto) Neut % (Auto) Lymph % (Auto) [place] % (Auto) Eos % (Auto) Baso % (Auto) Lymph # (Auto) [place] # (Auto) Eos # (Auto) Baso # (Auto) Abs Immat Gran (auto) Absolute Neuts (auto) Absolute Nucleated RBC Nucleated RBC % (auto) D-Dimer 405 Anion Gap Estim Creat Clear Calc Estimated GFR POC Glucose Random Glucose Calcium Magnesium Total Bilirubin Direct Bilirubin AST ALT Alkaline Phosphatase Troponin I High Sens 448.9 H* D B-Natriuretic Peptide 1447 H Total Protein Albumin Urine Color YELLOW Urine Appearance CLEAR Urine pH 6.0 Ur Specific [place] 1.010 Urine Protein NEG Urine Glucose (UA) NEG Urine Ketones NEG Urine Blood 2+ H Urine Nitrite NEG Ur Leukocyte Esterase NEG Urine RBC 15-29 H Urine WBC 0-2 Ur Squamous Epith Cells TRACE Urine Bacteria NONE COVID-19 (KATY) COVID-19 Clin Com 08/23/21 08/23/21 08/24/21 18:36 21:16 06:15 MCV 88.1 MCH 27.0 MCHC 30.6 L RDW 16.8 H Plt Count 225 MPV 11.2 Immature Gran % (Auto) 0.3 Neut % (Auto) 69.8 Lymph % (Auto) 13.8 L [place] % (Auto) 10.6 Eos % (Auto) 5.0 H Baso % (Auto) 0.5 Lymph # (Auto) 1.4 [place] # (Auto) 1.1 Eos # (Auto) 0.5 H Baso # (Auto) 0.1 Abs Immat Gran (auto) 0.03 Absolute Neuts (auto) 7.0 Absolute Nucleated RBC 0.000 Nucleated RBC % (auto) 0.0 D-Dimer Anion Gap Estim Creat Clear Calc Estimated GFR POC Glucose 90 114 Random Glucose Calcium Magnesium Total Bilirubin Direct Bilirubin AST ALT Alkaline Phosphatase Troponin I High Sens B-Natriuretic Peptide Total Protein Albumin Urine Color Urine Appearance Urine pH Ur Specific [place] Urine Protein Urine Glucose (UA) Urine Ketones Urine Blood Urine Nitrite Ur Leukocyte Esterase Urine RBC Urine WBC Ur Squamous Epith Cells Urine Bacteria COVID-19 (KATY) COVID-19 [employer] 08/24/21 08/24/21 08/24/21 06:15 06:15 07:20 MCV MCH MCHC RDW Plt Count MPV Immature Gran % (Auto) Neut % (Auto) Lymph % (Auto) [place] % (Auto) Eos % (Auto) Baso % (Auto) Lymph # (Auto) [place] # (Auto) Eos # (Auto) Baso # (Auto) Abs Immat Gran (auto) Absolute Neuts (auto) Absolute Nucleated RBC Nucleated RBC % (auto) D-Dimer Anion Gap 15 Estim Creat Clear Calc 20.9 Estimated GFR 23 POC Glucose 76 Random Glucose 84 Calcium 9.5 D Magnesium Total Bilirubin Direct Bilirubin AST ALT Alkaline Phosphatase Troponin I High Sens B-Natriuretic Peptide 1334 H Total Protein Albumin Urine Color Urine Appearance Urine pH Ur Specific [place] Urine Protein Urine Glucose (UA) Urine Ketones Urine Blood Urine Nitrite Ur Leukocyte Esterase Urine RBC Urine WBC Ur Squamous Epith Cells Urine Bacteria COVID-19 (KATY) COVID-19 [employer] Quality Stroke Does the patient have a stroke diagnosis?: No VTE Prior VTE?: No VTE Risk Level:: Medical - moderate - high VTE Device Contraindication: N/A - Device Ordered VTE Drug Contraindication: Treatment Not Indicated
[2021-08-24 11:25] LABS: Glucose, Whole Blood 177 mg/dL (60-115)
[2021-08-24] MEDS: Cholecalciferol (Vitamin D3) 25 MCG TABLET 50 MCG PO (11:39)
[2021-08-24] MEDS: Insulin Lispro 100 UNIT/ML 3 ML VIAL SUBCUT ×3 (11:39→21:37)
[2021-08-24] MEDS: Potassium Chloride ER 20 MEQ TAB.ER.PRT 40 MEQ PO (11:39)
--- NOTE | 2021-08-24 11:56 | MHC.CM.PN ---
with ranjit met with pt who explins that he lives with his who drives ,pt will soon be starting with [employer] ,his will transport him home
[2021-08-24 16:34] LABS: Glucose, Whole Blood 211 mg/dL (60-115)
[2021-08-24] MEDS: ondansetron HCL 4 MG/2 ML VIAL IVPUSH (16:52)
[2021-08-24 21:20] LABS: Glucose, Whole Blood 164 mg/dL (60-115)
[2021-08-24] MEDS: Atorvastatin Calcium 40 MG TABLET PO (21:37)
[2021-08-25] VITALS (7 sets, daily range): BP systolic 94–117; BP diastolic 54–71; PULSE 59–81; RESP 16–20; TEMP 36.1–36.7; O2SAT 97–100
--- NOTE | 2021-08-25 | ECG_ITS ---
Test Reason : ? AFIB Blood Pressure : / mmHG Vent. Rate : 077 BPM Atrial Rate : 068 BPM P-R Int : 000 ms QRS Dur : 102 ms QT Int : 438 ms P-R-T Axes : 000 -74 083 degrees QTc Int : 495 ms Atrial fibrillation with a competing junctional pacemaker Left axis deviation Pulmonary disease pattern Abnormal ECG When compared with ECG of 23-AUG-2021 22:30, Nonspecific T wave abnormality no longer evident in Inferior leads Referred By: Dax Novoa Electronically Signed By:FERCHO WARNER
[2021-08-25 00:25] LABS: Glucose, Whole Blood 144 mg/dL (60-115)
[2021-08-25] MEDS: Melatonin 3 MG TABLET 6 MG PO (00:52)
[2021-08-25 07:42] LABS: Glucose, Whole Blood 115 mg/dL (60-115)
[2021-08-25] MEDS: Amiodarone HCL 200 MG TABLET PO (10:05)
[2021-08-25] MEDS: 0.9 % Sodium Chloride Flush 3 ML SYRINGE IVFLUSH ×3 (10:05→21:51)
[2021-08-25] MEDS: Furosemide 40 MG/4 ML VIAL IVPUSH (10:06)
[2021-08-25] MEDS: Omeprazole 20 MG CAPSULE.DR PO (10:06)
[2021-08-25] MEDS: metOLazone 2.5 MG TABLET PO (10:09)
--- NOTE | 2021-08-25 11:18 | PM.PNCARD ---
Subjective Subjective Date of Service: 08/25/21 Interval history: Complaining of orthopnea. He is saying his urine output is low. Denying any hematuria today. Physical Exam Vital Signs: Last Vital Signs Temp 98.1 F 08/25/21 08:00 Pulse 68 08/25/21 10:05 Resp 20 08/25/21 08:00 BP 117/71 08/25/21 10:05 Pulse Ox 97 08/25/21 08:00 Body Mass Index 28.3 GENERAL APPEARANCE: in no acute distress, pleasant. NECK: no carotid bruit, elevated JVD. SKIN: no suspicious lesions, warm and dry. HEART: no murmurs, regular rate and rhythm. LUNGS: clear to auscultation bilaterally. ABDOMEN: soft, nontender. EXTREMITIES: no edema. PERIPHERAL PULSES: equal. NEUROLOGIC: No gross deficits, AAO X 3 Results Labs and Meds Result diagrams: 08/24/21 06:15 08/24/21 06:15 Lab results: Laboratory Results - last 24 hr 08/24/21 08/24/21 08/24/21 11:17 16:29 21:16 POC Glucose 177 H 211 H 164 H 08/25/21 08/25/21 00:19 07:12 POC Glucose 144 H 115 Progress Note: A&P Assessment and plan (1) Acute on chronic diastolic (congestive) heart failure: Status: Acute (2) Hypokalemia: Status: Acute (3) PAF (paroxysmal atrial fibrillation): Status: Acute Assessment and Plan: [age] gentleman with background of diastolic heart failure who is presenting with orthopnea and hematuria. He was seen in the clinic recently when he was complaining of hematuria and was referred to Urology for further workup. He was taking torsemide 40 mg in the morning and 20 in the afternoon along metolazone every other day. His blood workup showed hypokalemia at that stage we stop the metolazone and advised him to increase the potassium intake. He said he was feeling fatigued and tired. He still has orthopnea and is complaining does in April output is low. By exam he is volume overloaded. I am increasing the Lasix to 80 mg IV b.i.d.. We need to monitor his potassium and kidney function closely. Holding metolazone for now. Eventually would transition him back to torsemide. He has CardioMEMS and we will take some readings before discharge so we can compare as outpatient if any significant changes happen. For his hematuria he will need urology input. Continue to hold anticoagulation for now. On amiodarone for atrial fibrillation. Telemetry is showing sinus rhythm first-degree AV block. Atrial fibrillation 91 beats per minute. I will repeat 1 more EKG today. Thank you for allowing me to participate in the care of your patient. Please feel free to contact me if you have any questions. Fall Risk Details Current Medications: Current Medications Acetaminophen (Acetaminophen 325 Mg Tablet) 650 mg PO Q6H PRN PRN Reason: Pain, Mild (Pain Scale 1-3) Amiodarone HCl (Amiodarone Hcl 200 Mg Tablet) 200 mg PO DAILY [facility] Last Admin: 08/25/21 10:05 Dose: 200 mg Documented by: Atorvastatin Calcium (Atorvastatin Calcium 40 Mg Tablet) 40 mg PO BEDTIME [facility] Last Admin: 08/24/21 21:37 Dose: 40 mg Documented by: Budesonide (Budesonide 180 Mcg Aer.Pow.Ba) 1 puff INHALE BID [facility] Last Admin: 08/25/21 08:34 Dose: Not Given Documented by: Dextrose (Dextrose 50 % 25 Gm/50 Ml Vial) 25 gm IVPUSH Q15M PRN; Protocol PRN Reason: per Hypoglycemia Standing Ord. Furosemide (Furosemide 40 Mg/4 Ml Vial) 80 mg IVPUSH BID@0900,1800 [facility]; Protocol Glucose (Glucose Gel 15 Gm Gel..Gram.) 15 gm PO Q15M PRN; Protocol PRN Reason: per Hypoglycemia Standing Ord. Insulin Human Lispro (Insulin Lispro 100 Unit/Ml 3 Ml Vial) 0 unit SUBCUT QIDACHS [facility]; Protocol Last Admin: 08/25/21 07:27 Dose: Not Given Documented by: Melatonin (Melatonin 3 Mg Tablet) 6 mg PO BEDTIME PRN PRN Reason: Insomnia Last Admin: 08/25/21 00:52 Dose: 6 mg Documented by: Metolazone (Metolazone 2.5 Mg Tablet) 2.5 mg PO MoWeFr [facility] Last Admin: 08/25/21 10:09 Dose: 2.5 mg Documented by: Omeprazole (Omeprazole 20 Mg Capsule.) 20 mg PO DAILY [facility] Last Admin: 08/25/21 10:06 Dose: 20 mg Documented by: Ondansetron HCl (Ondansetron Hcl 4 Mg/2 Ml Vial) 4 mg IVPUSH Q8H PRN PRN Reason: Nausea and Vomiting Last Admin: 08/24/21 16:52 Dose: 4 mg Documented by: Pharmacy Consult (Consult Rx Perform Med Rec) 1 each MISCELLANE ONCE PRN PRN Reason: Consult order Potassium Chloride (Potassium Chloride Er 20 Meq Tab.Er.Prt) 40 meq PO DAILY@1200 [facility] Last Admin: 08/24/21 11:39 Dose: 40 meq Documented by: Sodium Chloride (0.9 % Sodium Chloride Flush 3 Ml Syringe) 3 ml IVFLUSH QSHIFT [facility] Last Admin: 08/25/21 10:05 Dose: 3 ml Documented by: Vitamin D (Cholecalciferol (Vitamin D3) 25 Mcg Tablet) 50 mcg PO DAILY@1200 [facility] Last Admin: 08/24/21 11:39 Dose: 50 mcg Documented by: Time Spent With Patient Time: Total time spent is greater than 50% in coordination of care (as documented) at patient's floor/unit and/or counseling patient: Time with patient: 25 - 35 minutes Progress Note: Quality Stroke Does the patient have a stroke diagnosis?: No Procedures Date of Service Date of Service: 08/25/21
[2021-08-25 11:39] LABS: Glucose, Whole Blood 179 mg/dL (60-115)
--- NOTE | 2021-08-25 11:50 | PM.IMPN ---
Progress Note: A&P (1) Chronic heart failure with preserved ejection fraction (HFpEF): Status: Acute (2) Hematuria: Status: Acute (3) CKD (chronic kidney disease) stage 3, GFR 30-59 ml/min: Status: Acute (4) Diabetes mellitus: Status: Acute Assessment and Plan: 76-year-old Hungarian-speaking male admitted with acute on chronic congestive heart failure and hematuria.? Acute on chronic heart failure with preserved ejection fraction with history of grade 3 diastolic dysfunction, EF 50-55% Hold torsemide, Lasix increased to 80mg BID Cardiology following, has CardiacMEMs Supplemental oxygen as needed Follow intake and output, daily weights Monitor on telemetry Hematuria.? Elevated PSA, ? prostate ca No further bleeding Urology consultation Hold Eliquis for now Follow H&H closely and type and screen if necessary Alvaro on CKD. Baseline trend History of paroxysmal atrial fibrillation Hold Eliquis due to hematuria Continue amiodarone Diabetes mellitus Sliding scale, ADA diet Obesity.? BMI 28.3 Discussed the importance of weight management as this may be contributing to worsening of other comorbidities DVT prophylaxis with mechanical compression boots Attending Dr. Venegas Full code Subjective Subjective Date of Service: 08/25/21 Review of Systems Follow up CHF, hematuria Had some sob last night Denies chest pain, NVD, hematuria Physical Exam Vital Signs: Vital Signs: Last Vital Signs Temp 98.1 F 08/25/21 08:00 Pulse 68 08/25/21 10:05 Resp 20 08/25/21 08:00 BP 117/71 08/25/21 10:05 Pulse Ox 97 08/25/21 08:00 Body Mass Index 28.3 Appearing in no acute distress lung sounds are clear to auscultation heart regular rate rhythm, clear S1, S2 positive bowel sounds, abdomen is soft, nontender neuro patient is alert x3, no focal deficits Objective Data Current Medications Acetaminophen (Acetaminophen 325 Mg Tablet) 650 mg PO Q6H PRN PRN Reason: Pain, Mild (Pain Scale 1-3) Amiodarone HCl (Amiodarone Hcl 200 Mg Tablet) 200 mg PO DAILY [facility] Last Admin: 08/25/21 10:05 Dose: 200 mg Documented by: Atorvastatin Calcium (Atorvastatin Calcium 40 Mg Tablet) 40 mg PO BEDTIME [facility] Last Admin: 08/24/21 21:37 Dose: 40 mg Documented by: Budesonide (Budesonide 180 Mcg Aer.Pow.Ba) 1 puff INHALE BID [facility] Last Admin: 08/25/21 08:34 Dose: Not Given Documented by: Dextrose (Dextrose 50 % 25 Gm/50 Ml Vial) 25 gm IVPUSH Q15M PRN; Protocol PRN Reason: per Hypoglycemia Standing Ord. Furosemide (Furosemide 40 Mg/4 Ml Vial) 80 mg IVPUSH BID@0900,1800 [facility]; Protocol Glucose (Glucose Gel 15 Gm Gel..Gram.) 15 gm PO Q15M PRN; Protocol PRN Reason: per Hypoglycemia Standing Ord. Insulin Human Lispro (Insulin Lispro 100 Unit/Ml 3 Ml Vial) 0 unit SUBCUT QIDACHS [facility]; Protocol Last Admin: 08/25/21 07:27 Dose: Not Given Documented by: Melatonin (Melatonin 3 Mg Tablet) 6 mg PO BEDTIME PRN PRN Reason: Insomnia Last Admin: 08/25/21 00:52 Dose: 6 mg Documented by: Omeprazole (Omeprazole 20 Mg Capsule.) 20 mg PO DAILY [facility] Last Admin: 08/25/21 10:06 Dose: 20 mg Documented by: Ondansetron HCl (Ondansetron Hcl 4 Mg/2 Ml Vial) 4 mg IVPUSH Q8H PRN PRN Reason: Nausea and Vomiting Last Admin: 08/24/21 16:52 Dose: 4 mg Documented by: Pharmacy Consult (Consult Rx Perform Med Rec) 1 each MISCELLANE ONCE PRN PRN Reason: Consult order Potassium Chloride (Potassium Chloride Er 20 Meq Tab.Er.Prt) 40 meq PO DAILY@1200 [facility] Last Admin: 08/24/21 11:39 Dose: 40 meq Documented by: Sodium Chloride (0.9 % Sodium Chloride Flush 3 Ml Syringe) 3 ml IVFLUSH QSHIFT [facility] Last Admin: 08/25/21 10:05 Dose: 3 ml Documented by: Vitamin D (Cholecalciferol (Vitamin D3) 25 Mcg Tablet) 50 mcg PO DAILY@1200 [facility] Last Admin: 08/24/21 11:39 Dose: 50 mcg Documented by: Labs CBC & Chem 7: 08/24/21 06:15 08/24/21 06:15 Labs: Laboratory Results - last 24 hr 08/24/21 08/24/21 08/25/21 16:29 21:16 00:19 POC Glucose 211 H 164 H 144 H 08/25/21 08/25/21 07:12 11:31 POC Glucose 115 179 H Quality Stroke Does the patient have a stroke diagnosis?: No VTE Prior VTE?: No VTE Risk Level:: Medical - moderate - high VTE Device Contraindication: N/A - Device Ordered VTE Drug Contraindication: Treatment Not Indicated
[2021-08-25] MEDS: Potassium Chloride ER 20 MEQ TAB.ER.PRT 40 MEQ PO (12:02)
[2021-08-25] MEDS: Insulin Lispro 100 UNIT/ML 3 ML VIAL SUBCUT ×2 (12:02→16:25)
[2021-08-25] MEDS: Cholecalciferol (Vitamin D3) 25 MCG TABLET 50 MCG PO (12:03)
[2021-08-25 16:17] LABS: Glucose, Whole Blood 175 mg/dL (60-115)
[2021-08-25] MEDS: Furosemide 40 MG/4 ML VIAL 80 MG IVPUSH (16:25)
[2021-08-25 20:23] LABS: Glucose, Whole Blood 150 mg/dL (60-115)
[2021-08-25] MEDS: Atorvastatin Calcium 40 MG TABLET PO (21:50)
[2021-08-26] VITALS (8 sets, daily range): BP systolic 96–114; BP diastolic 54–67; PULSE 56–86; RESP 17–20; TEMP 36.1–37.2; O2SAT 96–100
[2021-08-26 07:24] LABS: Glucose, Whole Blood 100 mg/dL (60-115)
[2021-08-26] MEDS: Amiodarone HCL 200 MG TABLET PO (09:11)
[2021-08-26] MEDS: 0.9 % Sodium Chloride Flush 3 ML SYRINGE IVFLUSH ×2 (09:11→21:38)
[2021-08-26] MEDS: Omeprazole 20 MG CAPSULE.DR PO (09:11)
[2021-08-26] MEDS: Furosemide 40 MG/4 ML VIAL 80 MG IVPUSH (09:12)
--- NOTE | 2021-08-26 09:14 | PM.UROCN ---
History of Present Illness Consult details Consult date: 08/26/21 Narrative: Jonathan is a pleasant male. Admitted with shortness of breath and cardiac failure Poorly controlled diabetic last HbA1c 9.5 PSA had been checked as outpatient and is 64 Creatinine 2.8 Highly suspicious for prostate cancer Recommend bone scan given current PSA total Start finasteride coupled with bicalutamide daily Will need outpatient evaluation for prostate biopsy PMFSH Past Medical History Medical History (Updated 08/26/21 @ 09:16 by Omkar Ceballos MD) CAD (coronary artery disease) Cardiomyopathy CKD (chronic kidney disease) stage 3, GFR 30-59 ml/min COVID-19 vaccine series completed Diabetic polyneuropathy associated with type 2 diabetes mellitus Dyslipidemia Essential hypertension Heart failure with preserved ejection fraction History of cardioversion History of COVID-19 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 Obesity (BMI 30-39.9) SRINIVASA (obstructive sleep apnea) Presence of CardioMEMS HF system Family History Family History Father Heart disease Diabetes mellitus Mother Diabetes mellitus Surgical History Surgical History Hx of cardiac catheterization Hx of colonoscopy Social History Social History Household Members: Spouse Housing: House Are you a primary patient centered care specialist to a significant other at home: No Do you presently have visiting nurse or other home services: No Alcohol intake: never Patient Tobacco Use Status: Former Tobacco user Quit Date: 1979 Tobacco use type: Cigarette Years Smoked: 33 e-Cigarette/Vaping Use: Never Used Use of substances other than those prescribed or required for medical reasons: No Currently Displaying Signs/Symptoms of Drug Intoxication Withdrawal: No Have you been hit, kicked, punched, or otherwise hurt by someone within the past year? If so, by whom?: No Do you feel safe in your current relationship?: Yes Is there a partner from a previous relationship who is making you feel unsafe now?: No Are you made to feel afraid or neglected: No Advance Directives: Yes Advance Directives Information Provided: Yes Advance Directives on File: No Advance Directives Date on File: 08/23/21 Do you have thoughts of harming others: None Do you have a plan to hurt others: No Plan Recently lost weight without trying: Unsure Nutrition Risks: No Nutritional Risk Poor oral hygiene: No service: No Current occupational status: unemployed and retired Meds Allergies Allergy/AdvReac Type Severity Reaction Status Date / Time No Known Allergies Allergy Verified 08/13/21 12:44 [No Known Allergies*] Active Medications: Current Medications Acetaminophen (Acetaminophen 325 Mg Tablet) 650 mg PO Q6H PRN PRN Reason: Pain, Mild (Pain Scale 1-3) Amiodarone HCl (Amiodarone Hcl 200 Mg Tablet) 200 mg PO DAILY [facility] Last Admin: 08/26/21 09:11 Dose: 200 mg Documented by: Atorvastatin Calcium (Atorvastatin Calcium 40 Mg Tablet) 40 mg PO BEDTIME [facility] Last Admin: 08/25/21 21:50 Dose: 40 mg Documented by: Budesonide (Budesonide 180 Mcg Aer.Pow.Ba) 1 puff INHALE BID [facility] Last Admin: 08/26/21 07:53 Dose: Not Given Documented by: Dextrose (Dextrose 50 % 25 Gm/50 Ml Vial) 25 gm IVPUSH Q15M PRN; Protocol PRN Reason: per Hypoglycemia Standing Ord. Furosemide (Furosemide 40 Mg/4 Ml Vial) 80 mg IVPUSH BID@0900,1800 [facility]; Protocol Last Admin: 08/26/21 09:12 Dose: 80 mg Documented by: Glucose (Glucose Gel 15 Gm Gel..Gram.) 15 gm PO Q15M PRN; Protocol PRN Reason: per Hypoglycemia Standing Ord. Insulin Human Lispro (Insulin Lispro 100 Unit/Ml 3 Ml Vial) 0 unit SUBCUT QIDACHS [facility]; Protocol Last Admin: 08/26/21 07:28 Dose: Not Given Documented by: Melatonin (Melatonin 3 Mg Tablet) 6 mg PO BEDTIME PRN PRN Reason: Insomnia Last Admin: 08/25/21 00:52 Dose: 6 mg Documented by: Omeprazole (Omeprazole 20 Mg Capsule.) 20 mg PO DAILY [facility] Last Admin: 08/26/21 09:11 Dose: 20 mg Documented by: Ondansetron HCl (Ondansetron Hcl 4 Mg/2 Ml Vial) 4 mg IVPUSH Q8H PRN PRN Reason: Nausea and Vomiting Last Admin: 08/24/21 16:52 Dose: 4 mg Documented by: Pharmacy Consult (Consult Rx Perform Med Rec) 1 each MISCELLANE ONCE PRN PRN Reason: Consult order Potassium Chloride (Potassium Chloride Er 20 Meq Tab.Er.Prt) 40 meq PO DAILY@1200 [facility] Last Admin: 08/25/21 12:02 Dose: 40 meq Documented by: Sodium Chloride (0.9 % Sodium Chloride Flush 3 Ml Syringe) 3 ml IVFLUSH QSHIFT [facility] Last Admin: 08/26/21 09:11 Dose: 3 ml Documented by: Vitamin D (Cholecalciferol (Vitamin D3) 25 Mcg Tablet) 50 mcg PO DAILY@1200 [facility] Last Admin: 08/25/21 12:03 Dose: 50 mcg Documented by: Home Medications Medication Instructions Recorded Confirmed Last Taken Type blood sugar diagnostic #10 ea 05/13/21 08/13/21 Unknown History lancets 33 gauge #100 ea 05/13/21 08/13/21 Unknown History pen needle, diabetic 31 gauge x #1200 ea 05/13/21 08/13/21 Unknown History 04/06 amiodarone 200 mg tablet 200 mg PO DAILY 08/23/21 08/23/21 Unknown History apixaban 5 mg tablet (Eliquis) 5 mg PO BID 08/23/21 08/23/21 Unknown History atorvastatin 40 mg tablet 40 mg PO QPM 08/23/21 08/23/21 Unknown History budesonide 90 mcg/actuation breath 2 puff INHALATION BID 08/23/21 08/23/21 Unknown History activated powder inhaler (Pulmicort Flexhaler) cholecalciferol (vitamin D3) 50 50 mcg PO QNOON 08/23/21 08/23/21 Unknown History mcg (2,000 unit) capsule (Vitamin D3) dulaglutide 1.5 mg/0.5 mL 1.5 mg SUBCUT QWEEK 08/23/21 08/23/21 Unknown History subcutaneous pen injector (Trulicity) insulin lispro 100 unit/mL 18 - 22 unit SUBCUT TID 08/23/21 08/23/21 Unknown History subcutaneous pen (Humalog KwikPen (U-100) Insulin) metolazone 2.5 mg tablet 2.5 mg PO Q OTHER DAY 08/23/21 08/23/21 Unknown History omeprazole 20 mg capsule,delayed 20 mg PO DAILY 08/23/21 08/23/21 Unknown History release potassium chloride 20 mEq 40 meq PO QNOON 08/23/21 08/23/21 Unknown History tablet,extended release(part/cryst) torsemide 20 mg tablet 20 mg PO QNOON 08/23/21 08/23/21 Unknown History torsemide 20 mg tablet 40 mg PO DAILY 08/23/21 08/23/21 Unknown History Physical Exam Vital Signs: Vital Signs: Last Vital Signs Temp 98.2 F 08/26/21 07:09 Pulse 78 08/26/21 09:12 Resp 17 08/26/21 07:09 BP 105/65 08/26/21 09:12 Pulse Ox 98 08/26/21 07:09 Body Mass Index 28.3 Results Labs Result diagrams: 08/24/21 06:15 08/24/21 06:15 Labs: Abnormal lab results 08/25/21 08/25/21 08/25/21 Range/Units 11:31 16:09 20:13 POC Glucose 179 H 175 H 150 H (60-115) mg/dL Urine 08/23/21 Range/Units 13:07 Urine Color YELLOW Urine Appearance CLEAR Urine pH 6.0 (5.0-8.0) Ur Specific [place] 1.010 (1.005-1.025) Urine Protein NEG (NEG-TRACE) MG/DL Urine Glucose (UA) NEG (NEG) MG/DL All other labs normal. Assessment and Plan (1) Prostate cancer: Status: Acute Procedures Date of Service Date of Service: 08/26/21
[2021-08-26 09:24] LABS: Anion Gap 18 (12-20); Blood Urea Nitrogen 78 mg/dL (9-16); Calcium 9.3 mg/dL (8.4-10.2); Carbon Dioxide 29 mmol/L (22-29); Chloride 96 mmol/L (96-108); Creatinine Clr Calc Pharmacy 17.9; Estimated Glomerular Filt Rate 19; Glucose Random 166 mg/dL (60-115); Potassium 4.1 mmol/L (3.3-5.1); Sodium 139 mmol/L (135-145)
[2021-08-26 09:34] LABS: B Type Natriuretic Peptide 956 pg/mL (<100)
[2021-08-26] MEDS: Finasteride 5 MG TABLET PO (10:24)
[2021-08-26] MEDS: Bicalutamide 50 MG TABLET PO (10:24)
[2021-08-26 11:15] LABS: Glucose, Whole Blood 242 mg/dL (60-115)
[2021-08-26] MEDS: Potassium Chloride ER 20 MEQ TAB.ER.PRT 40 MEQ PO (11:33)
[2021-08-26] MEDS: Insulin Lispro 100 UNIT/ML 3 ML VIAL SUBCUT ×3 (11:33→21:44)
[2021-08-26] MEDS: Cholecalciferol (Vitamin D3) 25 MCG TABLET 50 MCG PO (11:33)
--- NOTE | 2021-08-26 11:56 | P.PNIM_ITS ---
Progress Note: A&P (1) Chronic heart failure with reduced ejection fraction and diastolic dysfunction: Status: Acute (2) Hematuria: Status: Acute (3) ALVARO (acute kidney injury): Status: Acute (4) CKD (chronic kidney disease) stage 3, GFR 30-59 ml/min: Status: Acute (5) Obesity (BMI 30-39.9): Status: Acute Assessment and Plan: 76-year-old Lithuanian-speaking male admitted with acute on chronic congestive he art failure and hematuria.? Acute on chronic heart failure with preserved ejection fraction with history of grade 3 diastolic dysfunction, EF 50-55% Hold torsemide, Lasix increased to 80mg BID BNP trending down Cardiology following, has CardiacMEMs Supplemental oxygen as needed Follow intake and output, daily weights Monitor on telemetry Hematuria.? Elevated PSA, ? prostate ca No further bleeding Seen and evaluated by urology rec bone scan and start casodex 50mg daily and finesteride 5mg daily Hold Eliquis for now Follow H&H closely and type and screen if necessary Alvaro on CKD. Baseline trend History of paroxysmal atrial fibrillation Hold Eliquis due to hematuria Continue amiodarone Diabetes mellitus Sliding scale, ADA diet Obesity.? BMI 28.3 Discussed the importance of weight management as this may be contributing to worsening of other comorbidities DISPO needs more diuresis and bone scan the consider home when medically stable DVT prophylaxis with mechanical compression boots Attending Dr. De Oliveira Full code Subjective Subjective Date of Service: 08/26/21 Review of Systems Follow congestive heart failure, hematuria Hematuria completely resolved Some shortness of breath overnight Out of bed to chair, ambulating in room Physical Exam Vital Signs: Vital Signs: Last Vital Signs Temp 98.4 F 08/26/21 11:18 Pulse 76 08/26/21 11:18 Resp 17 08/26/21 11:18 BP 109/59 L 08/26/21 11:18 Pulse Ox 96 08/26/21 11:18 Body Mass Index 28.3 Appearing in no acute distress lung sounds are clear to auscultation heart regular rate rhythm, clear S1, S2 positive bowel sounds, abdomen is soft, nontender neuro patient is alert x3, no focal deficits Objective Data Current Medications Acetaminophen (Acetaminophen 325 Mg Tablet) 650 mg PO Q6H PRN PRN Reason: Pain, Mild (Pain Scale 1-3) Amiodarone HCl (Amiodarone Hcl 200 Mg Tablet) 200 mg PO DAILY [facility] Last Admin: 08/26/21 09:11 Dose: 200 mg Documented by: Atorvastatin Calcium (Atorvastatin Calcium 40 Mg Tablet) 40 mg PO BEDTIME [facility] Last Admin: 08/25/21 21:50 Dose: 40 mg Documented by: Bicalutamide (Bicalutamide 50 Mg Tablet) 50 mg PO DAILY [facility] Last Admin: 08/26/21 10:24 Dose: 50 mg Documented by: Budesonide (Budesonide 180 Mcg Aer.Pow.Ba) 1 puff INHALE BID [facility] Last Admin: 08/26/21 07:53 Dose: Not Given Documented by: Dextrose (Dextrose 50 % 25 Gm/50 Ml Vial) 25 gm IVPUSH Q15M PRN; Protocol PRN Reason: per Hypoglycemia Standing Ord. Finasteride (Finasteride 5 Mg Tablet) 5 mg PO DAILY [facility] Last Admin: 08/26/21 10:24 Dose: 5 mg Documented by: Furosemide (Furosemide 40 Mg/4 Ml Vial) 80 mg IVPUSH BID@0900,1800 [facility]; Protocol Last Admin: 08/26/21 09:12 Dose: 80 mg Documented by: Glucose (Glucose Gel 15 Gm Gel..Gram.) 15 gm PO Q15M PRN; Protocol PRN Reason: per Hypoglycemia Standing Ord. Insulin Human Lispro (Insulin Lispro 100 Unit/Ml 3 Ml Vial) 0 unit SUBCUT QIDACHS [facility]; Protocol Last Admin: 08/26/21 11:33 Dose: 4 unit Documented by: Melatonin (Melatonin 3 Mg Tablet) 6 mg PO BEDTIME PRN PRN Reason: Insomnia Last Admin: 08/25/21 00:52 Dose: 6 mg Documented by: Omeprazole (Omeprazole 20 Mg Capsule.) 20 mg PO DAILY [facility] Last Admin: 08/26/21 09:11 Dose: 20 mg Documented by: Ondansetron HCl (Ondansetron Hcl 4 Mg/2 Ml Vial) 4 mg IVPUSH Q8H PRN PRN Reason: Nausea and Vomiting Last Admin: 08/24/21 16:52 Dose: 4 mg Documented by: Pharmacy Consult (Consult Rx Perform Med Rec) 1 each MISCELLANE ONCE PRN PRN Reason: Consult order Potassium Chloride (Potassium Chloride Er 20 Meq Tab.Er.Prt) 40 meq PO DAILY@1200 [facility] Last Admin: 08/26/21 11:33 Dose: 40 meq Documented by: Sodium Chloride (0.9 % Sodium Chloride Flush 3 Ml Syringe) 3 ml IVFLUSH QSHIFT [facility] Last Admin: 08/26/21 09:11 Dose: 3 ml Documented by: Vitamin D (Cholecalciferol (Vitamin D3) 25 Mcg Tablet) 50 mcg PO DAILY@1200 [facility] Last Admin: 08/26/21 11:33 Dose: 50 mcg Documented by: Labs CBC & Chem 7: 08/24/21 06:15 08/26/21 08:30 Labs: Laboratory Results - last 24 hr 08/25/21 08/25/21 08/26/21 16:09 20:13 07:17 Anion Gap Estim Creat Clear Calc Estimated GFR POC Glucose 175 H 150 H 100 Random Glucose Calcium B-Natriuretic Peptide 08/26/21 08/26/21 08/26/21 08:30 08:30 11:03 Anion Gap 18 Estim Creat Clear Calc 17.9 Estimated GFR 19 POC Glucose 242 H Random Glucose 166 H D Calcium 9.3 B-Natriuretic Peptide 956 H Quality Stroke Does the patient have a stroke diagnosis?: No VTE Prior VTE?: No VTE Risk Level:: Medical - moderate - high VTE Device Contraindication: N/A - Device Ordered VTE Drug Contraindication: Treatment Not Indicated
--- NOTE | 2021-08-26 12:26 | PM.PNCARD ---
Subjective Subjective Date of Service: 08/26/21 Interval history: He is saying he is feeling better today. No orthopnea or shortness of breath today Review of Systems Review of Systems Feeling better Physical Exam Vital Signs: Last Vital Signs Temp 98.4 F 08/26/21 11:18 Pulse 76 08/26/21 11:18 Resp 17 08/26/21 11:18 BP 109/59 L 08/26/21 11:18 Pulse Ox 96 08/26/21 11:18 Body Mass Index 28.3 GENERAL APPEARANCE: in no acute distress, pleasant. NECK: no carotid bruit, no JVD but positive hepatojugular reflux. SKIN: no suspicious lesions, warm and dry. HEART: no murmurs, regular rate and rhythm. LUNGS: clear to auscultation bilaterally. ABDOMEN: soft, nontender. EXTREMITIES: no edema. PERIPHERAL PULSES: equal. NEUROLOGIC: No gross deficits, AAO X 3 Results Labs and Meds Result diagrams: 08/24/21 06:15 08/26/21 08:30 Lab results: Laboratory Results - last 24 hr 08/25/21 08/25/21 08/26/21 16:09 20:13 07:17 Sodium Potassium Chloride Carbon Dioxide Anion Gap BUN Creatinine Estim Creat Clear Calc Estimated GFR POC Glucose 175 H 150 H 100 Random Glucose Calcium B-Natriuretic Peptide 08/26/21 08/26/21 08/26/21 08:30 08:30 11:03 Sodium 139 Potassium 4.1 Chloride 96 Carbon Dioxide 29 Anion Gap 18 BUN 78 H Creatinine 3.22 H Estim Creat Clear Calc 17.9 Estimated GFR 19 POC Glucose 242 H Random Glucose 166 H D Calcium 9.3 B-Natriuretic Peptide 956 H Progress Note: A&P Assessment and plan (1) Acute on chronic diastolic (congestive) heart failure: Status: Acute (2) Hypokalemia: Status: Acute (3) PAF (paroxysmal atrial fibrillation): Status: Acute Assessment and Plan: Pleasant 86-year-old gentleman who is here for acute on chronic congestive heart failure and hematuria. His anticoagulation was held and he has seen Urology. He has been on IV diuretics. His creatinine has worsened on diuretics. He is feeling better today but creatinine is rising. I think we should hold the IV diuretics. Recheck labs tomorrow and then decide about oral torsemide. I would not give him anymore metolazone. Potassium level is improving. He has been started on bicalutamide which has risk of prolonged QT interval. He is also on amiodarone 200 mg once a day. His potassium and magnesium need to be monitored closely. He will need daily EKGs to make sure his QT interval does not change after addition of bicalutamide. Thank you for allowing me to participate in the care of your patient. Please feel free to contact me if you have any questions. Fall Risk Details Current Medications: Current Medications Acetaminophen (Acetaminophen 325 Mg Tablet) 650 mg PO Q6H PRN PRN Reason: Pain, Mild (Pain Scale 1-3) Amiodarone HCl (Amiodarone Hcl 200 Mg Tablet) 200 mg PO DAILY [facility] [place] Last Admin: 08/26/21 09:11 Dose: 200 mg Documented by: Atorvastatin Calcium (Atorvastatin Calcium 40 Mg Tablet) 40 mg PO BEDTIME [facility] [place] Last Admin: 08/25/21 21:50 Dose: 40 mg Documented by: Bicalutamide (Bicalutamide 50 Mg Tablet) 50 mg PO DAILY [facility] [place] Last Admin: 08/26/21 10:24 Dose: 50 mg Documented by: Budesonide (Budesonide 180 Mcg Aer.Pow.Ba) 1 puff INHALE BID [facility] [place] Last Admin: 08/26/21 07:53 Dose: Not Given Documented by: Dextrose (Dextrose 50 % 25 Gm/50 Ml Vial) 25 gm IVPUSH Q15M PRN; Protocol PRN Reason: per Hypoglycemia Standing Ord. Finasteride (Finasteride 5 Mg Tablet) 5 mg PO DAILY [facility] [place] Last Admin: 08/26/21 10:24 Dose: 5 mg Documented by: Furosemide (Furosemide 40 Mg/4 Ml Vial) 80 mg IVPUSH BID@0900,1800 [facility] [place]; Protocol Last Admin: 08/26/21 09:12 Dose: 80 mg Documented by: Glucose (Glucose Gel 15 Gm Gel..Gram.) 15 gm PO Q15M PRN; Protocol PRN Reason: per Hypoglycemia Standing Ord. Insulin Human Lispro (Insulin Lispro 100 Unit/Ml 3 Ml Vial) 0 unit SUBCUT QIDACHS [facility]; Protocol Last Admin: 08/26/21 11:33 Dose: 4 unit Documented by: Melatonin (Melatonin 3 Mg Tablet) 6 mg PO BEDTIME PRN PRN Reason: Insomnia Last Admin: 08/25/21 00:52 Dose: 6 mg Documented by: Omeprazole (Omeprazole 20 Mg Capsule.Dr) 20 mg PO DAILY [facility] [place] Last Admin: 08/26/21 09:11 Dose: 20 mg Documented by: Ondansetron HCl (Ondansetron Hcl 4 Mg/2 Ml Vial) 4 mg IVPUSH Q8H PRN PRN Reason: Nausea and Vomiting Last Admin: 08/24/21 16:52 Dose: 4 mg Documented by: Pharmacy Consult (Consult Rx Perform Med Rec) 1 each MISCELLANE ONCE PRN PRN Reason: Consult order Potassium Chloride (Potassium Chloride Er 20 Meq Tab.Er.Prt) 40 meq PO DAILY@1200 K[facility] Last Admin: 08/26/21 11:33 Dose: 40 meq Documented by: Sodium Chloride (0.9 % Sodium Chloride Flush 3 Ml Syringe) 3 ml IVFLUSH QSHIFT [facility] [place] Last Admin: 08/26/21 09:11 Dose: 3 ml Documented by: Vitamin D (Cholecalciferol (Vitamin D3) 25 Mcg Tablet) 50 mcg PO DAILY@1200 KIM Last Admin: 08/26/21 11:33 Dose: 50 mcg Documented by: Time Spent With Patient Time: Total time spent is greater than 50% in coordination of care (as documented) at patient's floor/unit and/or counseling patient: Time with patient: 25 - 35 minutes Progress Note: Quality Stroke Does the patient have a stroke diagnosis?: No Procedures Date of Service Date of Service: 08/26/21
[2021-08-26 16:44] LABS: Glucose, Whole Blood 305 mg/dL (60-115)
[2021-08-26 21:10] LABS: Glucose, Whole Blood 197 mg/dL (60-115)
[2021-08-26] MEDS: Atorvastatin Calcium 40 MG TABLET PO (21:38)
[2021-08-26] MEDS: Melatonin 3 MG TABLET 6 MG PO (21:49)
[2021-08-27] VITALS (8 sets, daily range): BP systolic 107–120; BP diastolic 60–71; PULSE 58–77; RESP 18–20; TEMP 36.3–37; O2SAT 98–100; BMI 27.6
--- NOTE | 2021-08-27 | ECG_ITS ---
Test Reason : CHF Blood Pressure : / mmHG Vent. Rate : 080 BPM Atrial Rate : 080 BPM P-R Int : 288 ms QRS Dur : 106 ms QT Int : 430 ms P-R-T Axes : 016 -88 066 degrees QTc Int : 495 ms Sinus rhythm with 1st degree A-V block Left axis deviation Pulmonary disease pattern Prolonged QT Abnormal ECG When compared with ECG of 25-AUG-2021 14:15, Sinus rhythm has replaced Atrial fibrillation Referred By: Chen Rob Electronically Signed By:FERCHO WARNER
[2021-08-27 03:16] LABS: Glucose, Whole Blood 130 mg/dL (60-115)
[2021-08-27 07:04] LABS: B Type Natriuretic Peptide 1172 pg/mL (<100)
[2021-08-27 07:06] LABS: Hematocrit 34.6 % (42-52); Hemoglobin 10.8 g/dl (14.0-18.0); Mean Corpuscular HGB Conc 31.2 g/dl (31.0-36.0); Mean Corpuscular Hemoglobin 26.8 pg (27.0-33.0); Mean Corpuscular Volume 85.9 fL (80-98); Mean Platelet Volume 11.9 fL (9.4-12.4); Platelet Count 229 X10*3/uL (160-400); Red Blood Count 4.03 X10*6/uL (4.60-5.80); Red Cell Distribution Width 16.5 % (11.0-16.0); White Blood Count 8.5 X10*3/uL (4.8-10.8)
[2021-08-27 07:28] LABS: Glucose, Whole Blood 127 mg/dL (60-115)
[2021-08-27 07:45] LABS: Anion Gap 16 (12-20); Blood Urea Nitrogen 81 mg/dL (9-16); Calcium 9.2 mg/dL (8.4-10.2); Carbon Dioxide 29 mmol/L (22-29); Chloride 96 mmol/L (96-108); Creatinine Clr Calc Pharmacy 17.7; Estimated Glomerular Filt Rate 19; Glucose Random 128 mg/dL (60-115); Potassium 4.3 mmol/L (3.3-5.1); Sodium 137 mmol/L (135-145)
[2021-08-27] MEDS: 0.9 % Sodium Chloride Flush 3 ML SYRINGE IVFLUSH ×3 (08:32→21:55)
[2021-08-27] MEDS: Finasteride 5 MG TABLET PO (08:33)
[2021-08-27] MEDS: Amiodarone HCL 200 MG TABLET PO (08:33)
[2021-08-27] MEDS: Bicalutamide 50 MG TABLET PO (08:33)
[2021-08-27] MEDS: Omeprazole 20 MG CAPSULE.DR PO (08:33)
--- NOTE | 2021-08-27 08:34 | MHC.CM.PN ---
DC plan remains the same , for patient to return home no svcs. to transport at dc. cm to cont. to follow.
[2021-08-27 11:31] LABS: Glucose, Whole Blood 251 mg/dL (60-115)
[2021-08-27] MEDS: Cholecalciferol (Vitamin D3) 25 MCG TABLET 50 MCG PO (11:48)
[2021-08-27] MEDS: Insulin Lispro 100 UNIT/ML 3 ML VIAL SUBCUT ×3 (11:48→21:51)
[2021-08-27] MEDS: Potassium Chloride ER 20 MEQ TAB.ER.PRT 40 MEQ PO (11:48)
--- NOTE | 2021-08-27 13:04 | HO.PM.IMPN ---
Subjective Subjective Date of Service: 08/27/21 Interval History: No acute events overnight. Denies shortness of breath. States he is breathing better since he came in. Ambulating in room without issue. Review of Systems Denies chest pain Denies shortness of breath Denies nausea vomiting diarrhea Physical Exam Vital Signs: Vital Signs: Last Vital Signs Temp 97.5 F 08/27/21 11:34 Pulse 77 08/27/21 11:34 Resp 18 08/27/21 11:34 BP 115/61 08/27/21 11:34 Pulse Ox 99 08/27/21 11:34 Body Mass Index 27.6 Const: Other: No acute distress. Resting comfortably HENMT: Other: Oral pharynx clear; membranes moist Resp: Other: The ER clear to auscultation. No rales rhonchi is wheezes. Good aeration to the bases Cardio: Other: No S4; positive S1-S2; no S4 murmurs of gallops. Regular rate and rhythm GI: Other: Soft nontender nondistended with normoactive bowel sounds x4 quadrants. No peritoneal signs Neuro: Other: Age-appropriate nonfocal Extrem: Other: No edema bilaterally Objective Data Active Medications Acetaminophen (Acetaminophen 325 Mg Tablet) 650 mg PO Q6H PRN PRN Reason: Pain, Mild (Pain Scale 1-3) Amiodarone HCl (Amiodarone Hcl 200 Mg Tablet) 200 mg PO DAILY [facility] Last Admin: 08/27/21 08:33 Dose: 200 mg Documented by: SHASHI Atorvastatin Calcium (Atorvastatin Calcium 40 Mg Tablet) 40 mg PO BEDTIME [facility] Last Admin: 08/26/21 21:38 Dose: 40 mg Documented by: ELIA Bicalutamide (Bicalutamide 50 Mg Tablet) 50 mg PO DAILY [facility] Last Admin: 08/27/21 08:33 Dose: 50 mg Documented by: SHASHI Budesonide (Budesonide 180 Mcg Aer.Pow.Ba) 1 puff INHALE BID [facility] Last Admin: 08/27/21 07:26 Dose: Not Given Documented by: COLLEEN Non-Admin Reason: med unavail Dextrose (Dextrose 50 % 25 Gm/50 Ml Vial) 25 gm IVPUSH Q15M PRN; Protocol PRN Reason: per Hypoglycemia Standing Ord. Finasteride (Finasteride 5 Mg Tablet) 5 mg PO DAILY [facility] Last Admin: 08/27/21 08:33 Dose: 5 mg Documented by: SHASHI Glucose (Glucose Gel 15 Gm Gel..Gram.) 15 gm PO Q15M PRN; Protocol PRN Reason: per Hypoglycemia Standing Ord. Insulin Human Lispro (Insulin Lispro 100 Unit/Ml 3 Ml Vial) 0 unit SUBCUT QIDACHS [facility]; Protocol Last Admin: 08/27/21 11:48 Dose: 6 unit Documented by: SHASHI Melatonin (Melatonin 3 Mg Tablet) 6 mg PO BEDTIME PRN PRN Reason: Insomnia Last Admin: 08/26/21 21:49 Dose: 6 mg Documented by: ELIA Omeprazole (Omeprazole 20 Mg Capsule.) 20 mg PO DAILY [facility] Last Admin: 08/27/21 08:33 Dose: 20 mg Documented by: SHASHI Ondansetron HCl (Ondansetron Hcl 4 Mg/2 Ml Vial) 4 mg IVPUSH Q8H PRN PRN Reason: Nausea and Vomiting Last Admin: 08/24/21 16:52 Dose: 4 mg Documented by: BREANNA Pharmacy Consult (Consult Rx Perform Med Rec) 1 each MISCELLANE ONCE PRN PRN Reason: Consult order Potassium Chloride (Potassium Chloride Packet 20 Meq Packet) 20 meq PO DAILY [facility] Sodium Chloride (0.9 % Sodium Chloride Flush 3 Ml Syringe) 3 ml IVFLUSH QSHIFT [facility] Last Admin: 08/27/21 08:32 Dose: 3 ml Documented by: SHASHI Vitamin D (Cholecalciferol (Vitamin D3) 25 Mcg Tablet) 50 mcg PO DAILY@1200 [facility] Last Admin: 08/27/21 11:48 Dose: 50 mcg Documented by: SHASHI Labs CBC & Chem 7: 08/27/21 06:14 08/27/21 06:14 Labs: Laboratory Results - last 24 hr 08/26/21 08/26/21 08/27/21 16:02 20:33 03:12 MCV MCH MCHC RDW Plt Count MPV Absolute Nucleated RBC Nucleated RBC % (auto) Anion Gap Estim Creat Clear Calc Estimated GFR POC Glucose 305 H 197 H 130 H Random Glucose Calcium Magnesium B-Natriuretic Peptide 08/27/21 08/27/21 08/27/21 06:14 06:14 06:14 MCV 85.9 MCH 26.8 L MCHC 31.2 RDW 16.5 H Plt Count 229 MPV 11.9 Absolute Nucleated RBC 0.000 Nucleated RBC % (auto) 0.0 Anion Gap 16 Estim Creat Clear Calc 17.7 Estimated GFR 19 POC Glucose Random Glucose 128 H Calcium 9.2 Magnesium 2.0 B-Natriuretic Peptide 1172 H 08/27/21 08/27/21 07:13 11:26 MCV MCH MCHC RDW Plt Count MPV Absolute Nucleated RBC Nucleated RBC % (auto) Anion Gap Estim Creat Clear Calc Estimated GFR POC Glucose 127 H 251 H Random Glucose Calcium Magnesium B-Natriuretic Peptide Assessment and Plan (1) Acute on chronic diastolic (congestive) heart failure: Status: Acute Assessment and Plan: 76-year-old Malay-speaking male admitted with acute on chronic congestive heart failure.? 1.Acute on chronic heart failure with preserved ejection fraction with history of grade 3 diastolic dysfunction, EF 50-55% Diuretics held in light of worsening renal function. Exam still unremarkable... Will hold diuresis at this time and follow up creatinine in a.m. Follow BNP daily; titrate oxygen as tolerated. Follow intake and output, daily weights Monitor on telemetry 2.Hematuria in backdrop of known prostate cancer: Bone scan negative for metastatic disease. Continue bicalutamide; continue finasteride 3. MORTEZA on CKD; Creatinine still elevated off diuresis. Will continue to trend daily. Potassium decreased to 20 mEq a day Discussed with Cardiology; diuresis based on upcoming creatinines EKG done today to follow QT with bicalutamide; QTC essentially unchanged 4. PAF; EKG normal sinus rhythm today Will discuss anticoagulation with Cardiology going forward 5.Diabetes mellitus Sliding scale, ADA diet 6.Obesity.? BMI 28.3 Discussed the importance of weight management as this may be contributing to worsening of other comorbidities DVT prophylaxis with mechanical compression bootsl Full code Quality Stroke Does the patient have a stroke diagnosis?: No VTE Prior VTE?: No VTE Risk Level:: Medical - moderate - high VTE Device Contraindication: N/A - Device Ordered VTE Drug Contraindication: Treatment Not Indicated
[2021-08-27 14:43] LABS: Alanine Aminotransferase 55 U/L (0-40); Alkaline Phosphatase 89 U/L (39-117); Anion Gap 16 (12-20); Aspartate Amino Transferase 34 U/L (5-37); Blood Urea Nitrogen 84 mg/dL (9-16); Calcium 9.9 mg/dL (8.4-10.2); Carbon Dioxide 29 mmol/L (22-29); Chloride 96 mmol/L (96-108); Creatinine Clr Calc Pharmacy 17.1; Estimated Glomerular Filt Rate 18; Glucose Fasting 228 mg/dL (60-99); Potassium 4.6 mmol/L (3.3-5.1); Sodium 136 mmol/L (135-145); Total Protein 6.8 g/dL (6.5-8.0)
[2021-08-27 15:58] LABS: Glucose, Whole Blood 203 mg/dL (60-115)
[2021-08-27] MEDS: Lactulose 20 GM/30 ML SOLUTION 10 GM PO (17:49)
--- NOTE | 2021-08-27 18:30 | PM.PNCARD ---
Subjective Subjective Date of Service: 08/27/21 <GIOVANA Macias - Last Filed: 08/27/21 18:40> 08/28/21 <Dax Novoa MD - Last Filed: 08/28/21 11:49> Principal diagnosis: CHF, MORTEZA <GIOVANA Macias - Last Filed: 08/27/21 18:40> Interval history: Cardiology follow up for CHF. 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 Today he reports that he is feeling better. He states his breathing is comfortable. He denies PND, orthopnea or edema. No chest discomfort, palpitations, dizziness. He reports sleeping well and steady on his feet when getting up this morning. He normally uses CPAP at night at home. We will ask family to bring in his CardioMEMS pillow. <GIOVANA Macias Last Filed: 08/27/21 18:40> Review of Systems Review of Systems As above <GIOVANA Macias - Last Filed: 08/27/21 18:40> Yes all other systems are reviewed and are negative <GIOVANA Macias - Last Filed: 08/27/21 18:40> Physical Exam Vital Signs: Last Vital Signs Temp 97.5 F 08/27/21 15:51 Pulse 70 08/27/21 15:51 Resp 20 08/27/21 15:51 BP 120/60 08/27/21 15:51 Pulse Ox 98 08/27/21 15:51 Body Mass Index 27.6 <GIOVANA Macias - Last Filed: 08/27/21 18:40> Const General: cooperative, no acute distress, alert and awake <GIOVANA Macias Last Filed: 08/27/21 18:40> Orientation/consciousness: patient oriented x3 <GIOVANA Macias Last Filed: 08/27/21 18:40> Neck Neck: Yes normal visual inspection and Yes no JVD <GIOVANA Macias Last Filed: 08/27/21 18:40> Resp Effort & Inspection: normal respiratory effort, able to speak in complete sentences and not labored <GIOVANA Macias Last Filed: 08/27/21 18:40> Auscultation: clear to auscultation bilaterally, rales (Faint rales noted in each lower lobe), no rhonchi and no wheezes <[facility] Chary PHONE SCREENER - Last Filed: 08/27/21 18:40> Cardio Palpation: normal PMI <[facility] Last Filed: 08/27/21 18:40> Rate: regular rate [facility] Last Filed: 08/27/21 18:40> Rhythm: regular rhythm [facility] Last Filed: 08/27/21 18:40> Heart sounds: S1 normal heart sound present and S2 normal heart sound present [facility] Last Filed: 08/27/21 18:40> Peripheral pulses: Peripheral pulses 2+ throughout [facility] Last Filed: 08/27/21 18:40> GI Inspection: Yes normal to inspection [facility] Last Filed: 08/27/21 18:40> Neuro General: patient oriented x3 [facility] Last Filed: 08/27/21 18:40> Extrem Other: Trace edema right lower leg <[facility] Last Filed: 08/27/21 18:40> General: Yes normal to inspection <[facility] Last Filed: 08/27/21 18:40> Results Labs and Meds Result diagrams: : 08/28/21 10:11 08/28/21 10:11 <[facility] Last Filed: 08/27/21 18:40> Lab results: Laboratory Results - last 24 hr 08/26/21 08/27/21 08/27/21 20:33 03:12 06:14 WBC 8.5 RBC 4.03 L Hgb 10.8 L Hct 34.6 L MCV 85.9 MCH 26.8 L MCHC 31.2 RDW 16.5 H Plt Count 229 MPV 11.9 Absolute Nucleated RBC 0.000 Nucleated RBC % (auto) 0.0 Sodium Potassium Chloride Carbon Dioxide Anion Gap BUN Creatinine Estim Creat Clear Calc Estimated GFR POC Glucose 197 H 130 H Random Glucose Fasting Glucose Calcium Magnesium Total Bilirubin AST ALT Alkaline Phosphatase B-Natriuretic Peptide Total Protein Albumin 08/27/21 08/27/21 08/27/21 06:14 06:14 07:13 WBC RBC Hgb Hct MCV MCH MCHC RDW Plt Count MPV Absolute Nucleated RBC Nucleated RBC % (auto) Sodium 137 Potassium 4.3 Chloride 96 Carbon Dioxide 29 Anion Gap 16 BUN 81 H* Creatinine 3.22 H Estim Creat Clear Calc 17.7 Estimated GFR 19 POC Glucose 127 H Random Glucose 128 H Fasting Glucose Calcium 9.2 Magnesium 2.0 Total Bilirubin AST ALT Alkaline Phosphatase B-Natriuretic Peptide 1172 H Total Protein Albumin 08/27/21 08/27/21 08/27/21 11:26 14:03 15:50 WBC RBC Hgb Hct MCV MCH MCHC RDW Plt Count MPV Absolute Nucleated RBC Nucleated RBC % (auto) Sodium 136 Potassium 4.6 Chloride 96 Carbon Dioxide 29 Anion Gap 16 BUN 84 H* Creatinine 3.34 H Estim Creat Clear Calc 17.1 Estimated GFR 18 POC Glucose 251 H 203 H Random Glucose Fasting Glucose 228 H D Calcium 9.9 D Magnesium Total Bilirubin 1.0 AST 34 ALT 55 H Alkaline Phosphatase 89 B-Natriuretic Peptide Total Protein 6.8 Albumin 4.0 <GIOVANA Macias - Last Filed: 08/27/21 18:40> Imaging Radiologist's impression: Impressions Bone Scan Nuclear Medicine 08/26/21 14:35 IMPRESSION: A few mild nonspecific abnormalities are noted as described above and these are all likely arthritic or traumatic in etiology. None of these abnormalities is strongly suspicious for metastatic disease. <GIOVANA Macias - Last Filed: 08/27/21 18:40> Progress Note: A&P Assessment and plan (1) Acute on chronic diastolic (congestive) heart failure: Status: Acute <GIOVANA Macias - Last Filed: 08/27/21 18:40> Assessment and Plan: Being treated for acute on chronic diastolic Congestive heart failure. His creatinine has worsened on IV diuretics. Creatinine up to 3.22 today. His diuretics have been placed on hold. He does have a CardioMEMS device and I have asked that his pillow be brought in so that we can obtain a PAD reading. Clinically he appears improved. Will add hydralazine for afterload reduction. If tolerates then will consider adding nitrate for preload reduction. Continue strict I&O monitoring. Close monitoring of electrolytes and kidney function. Will continue to follow <GIOVANA Macias - Last Filed: 08/27/21 18:40> Fall Risk Details Current Medications: Current Medications Acetaminophen (Acetaminophen 325 Mg Tablet) 650 mg PO Q6H PRN PRN Reason: Pain, Mild (Pain Scale 1-3) Amiodarone HCl (Amiodarone Hcl 200 Mg Tablet) 200 mg PO DAILY [facility] 234 BEDS AT [facility] Last Admin: 08/27/21 08:33 Dose: 200 mg Documented by: Atorvastatin Calcium (Atorvastatin Calcium 40 Mg Tablet) 40 mg PO BEDTIME [facility]S [facility]CLUDE 234 BEDS AT [facility] Last Admin: 08/26/21 21:38 Dose: 40 mg Documented by: Bicalutamide (Bicalutamide 50 Mg Tablet) 50 mg PO DAILY [facility]S [facility]CLUDE 234 BEDS AT [facility] Last Admin: 08/27/21 08:33 Dose: 50 mg Documented by: Budesonide (Budesonide 180 Mcg Aer.Pow.Ba) 1 puff INHALE BID [facility]S [facility]CLUDE 234 BEDS AT [facility] Last Admin: 08/27/21 07:26 Dose: Not Given Documented by: Dextrose (Dextrose 50 % 25 Gm/50 Ml Vial) 25 gm IVPUSH Q15M PRN; Protocol PRN Reason: per Hypoglycemia Standing Ord. Finasteride (Finasteride 5 Mg Tablet) 5 mg PO DAILY [facility]S [facility]CLUDE 234 BEDS AT [facility] Last Admin: 08/27/21 08:33 Dose: 5 mg Documented by: Glucose (Glucose Gel 15 Gm Gel..Gram.) 15 gm PO Q15M PRN; Protocol PRN Reason: per Hypoglycemia Standing Ord. Insulin Human Lispro (Insulin Lispro 100 Unit/Ml 3 Ml Vial) 0 unit SUBCUT QIDACHS COUNTS INCLUDE 234 BEDS AT [facility]; Protocol Last Admin: 08/27/21 16:49 Dose: 4 unit Documented by: Lactulose (Lactulose 20 Gm/30 Ml Solution) 10 gm PO DAILY [facility]S INCLUDE 234 BEDS AT [facility] Last Admin: 08/27/21 17:49 Dose: 10 gm Documented by: Melatonin (Melatonin 3 Mg Tablet) 6 mg PO BEDTIME PRN PRN Reason: Insomnia Last Admin: 08/26/21 21:49 Dose: 6 mg Documented by: Omeprazole (Omeprazole 20 Mg Shelbie.) 20 mg PO DAILY [facility]S [facility] 234 BEDS AT [facility] Last Admin: 08/27/21 08:33 Dose: 20 mg Documented by: Ondansetron HCl (Ondansetron Hcl 4 Mg/2 Ml Vial) 4 mg IVPUSH Q8H PRN PRN Reason: Nausea and Vomiting Last Admin: 08/24/21 16:52 Dose: 4 mg Documented by: Pharmacy Consult (Consult Rx Perform Med Rec) 1 each MISCELLANE ONCE PRN PRN Reason: Consult order Potassium Chloride (Potassium Chloride Packet 20 Meq Packet) 20 meq PO DAILY COUNTS INCLUDE 234 BEDS AT [facility] Sodium Chloride (0.9 % Sodium Chloride Flush 3 Ml Syringe) 3 ml IVFLUSH QSHIFT COUNTS INCLUDE 234 BEDS AT THE [facility] Last Admin: 08/27/21 15:22 Dose: 3 ml Documented by: Vitamin D (Cholecalciferol (Vitamin D3) 25 Mcg Tablet) 50 mcg PO DAILY@1200 [facility] Last Admin: 08/27/21 11:48 Dose: 50 mcg Documented by: <GIOVANA Macias - Last Filed: 08/27/21 18:40> Time Spent With Patient Time: Total time spent is greater than 50% in coordination of care (as documented) at patient's floor/unit and/or counseling patient: 16 <GIOVANA Macias - Last Filed: 08/27/21 18:40> Time with patient: 15 - 24 minutes <GIOVANA Macias - Last Filed: 08/27/21 18:40> Progress Note: Quality Stroke Does the patient have a stroke diagnosis?: No <GIOVANA Macias Last Filed: 08/27/21 18:40> Procedures Date of Service Date of Service: 08/27/21 <GIOVANA Macias - Last Filed: 08/27/21 18:40>
[2021-08-27 20:42] LABS: Glucose, Whole Blood 211 mg/dL (60-115)
[2021-08-27] MEDS: Atorvastatin Calcium 40 MG TABLET PO (21:51)
[2021-08-27] MEDS: Melatonin 3 MG TABLET 6 MG PO (21:51)
[2021-08-27] MEDS: hydrALAZINE HCl 10 MG TABLET PO (21:51)
[2021-08-28] VITALS (11 sets, daily range): BP systolic 94–105; BP diastolic 57–73; PULSE 64–80; RESP 16–20; TEMP 36.3–36.8; O2SAT 98–100; BMI 27.7
--- NOTE | 2021-08-28 | ECG_ITS ---
Test Reason : CP Blood Pressure : / mmHG Vent. Rate : 083 BPM Atrial Rate : 083 BPM P-R Int : 280 ms QRS Dur : 106 ms QT Int : 420 ms P-R-T Axes : 000 258 048 degrees QTc Int : 493 ms Sinus rhythm with marked sinus arrhythmia with 1st degree A-V block Right superior axis deviation Pulmonary disease pattern Prolonged QT Abnormal ECG When compared with ECG of 27-AUG-2021 08:36, No significant change was found Referred By: Reed Kenny Electronically Signed By:FERCHO WARNER
[2021-08-28 05:59] LABS: MANUAL DIFF FLAG NO
[2021-08-28 06:07] LABS: Basophils Percent Auto 0.3 % (0-2); Eosinophils Absolute Auto 0.1 X10*3/uL (0.0-0.4); Eosinophils Percent Auto 1.5 % (0-4); Hematocrit 33.3 % (42-52); Hemoglobin 10.4 g/dl (14.0-18.0); Imm Gran Abs Auto 0.03 X10*3/uL (0.00-0.03); Imm Gran Pct Auto 0.3 % (0.0-0.4); Lymphocytes Percent Auto 11.3 % (20-40); Mean Corpuscular HGB Conc 31.2 g/dl (31.0-36.0); Mean Corpuscular Hemoglobin 26.7 pg (27.0-33.0); Mean Corpuscular Volume 85.4 fL (80-98); Mean Platelet Volume 11.2 fL (9.4-12.4); Monocytes Absolute Auto 1.1 X10*3/uL (0.1-1.2); Monocytes Percent Auto 11.8 % (2-11); Neutrophils Absolute Auto 6.7 X10*3/uL (2.0-8.3); Neutrophils Percent Auto 74.8 % (45-73); Platelet Count 213 X10*3/uL (160-400); Red Cell Distribution Width 16.5 % (11.0-16.0)
[2021-08-28 07:28] LABS: Glucose, Whole Blood 133 mg/dL (60-115)
[2021-08-28] MEDS: Budesonide 180 MCG AER.POW.BA 1 PUFF INHALE ×2 (07:50→20:31)
[2021-08-28] MEDS: Bicalutamide 50 MG TABLET PO (08:54)
[2021-08-28] MEDS: Finasteride 5 MG TABLET PO (08:54)
[2021-08-28] MEDS: 0.9 % Sodium Chloride Flush 3 ML SYRINGE IVFLUSH ×3 (08:54→21:33)
[2021-08-28] MEDS: Amiodarone HCL 200 MG TABLET PO (08:55)
[2021-08-28] MEDS: hydrALAZINE HCl 10 MG TABLET PO ×2 (08:56→14:18)
[2021-08-28] MEDS: Potassium Chloride Packet 20 MEQ PACKET PO (08:57)
[2021-08-28] MEDS: Omeprazole 20 MG CAPSULE.DR PO (08:57)
[2021-08-28] MEDS: Lactulose 20 GM/30 ML SOLUTION 10 GM PO (08:57)
--- NOTE | 2021-08-28 10:12 | P.PNCA_ITS ---
Subjective Subjective Date of Service: 08/28/21 <GIOVANA Macias - Last Filed: 08/28/21 10:38> 08/28/21 <Dax Novoa MD - Last Filed: 08/28/21 11:49> Principal diagnosis: CHF, MORTEZA <GIOVANA Macias - Last Filed: 08/28/21 10:38> Interval history: Cardiology follow up for CHF. Seen at 0850. Today he is observed sitting up in a chair. He states that he still has shortness of breath at times. He slept with his head of the bed mildly elevated and denies having PND, orthopnea. Not wearing oxygen supplement at present. He denies any chest discomfort, palpitations, dizziness. He does have mild edema in his legs. He was steady on his feet this morning when getting up. His family brought in his CardioMEMS pillow. <GIOVANA Macias - Last Filed: 08/28/21 10:38> Review of Systems Review of Systems As above <GIOVANA Macias - Last Filed: 08/28/21 10:38> Yes all other systems are reviewed and are negative <GIOVANA Macias - Last Filed: 08/28/21 10:38> Physical Exam Vital Signs: Last Vital Signs Temp 97.3 F 08/28/21 07:18 Pulse 70 08/28/21 08:56 Resp 18 08/28/21 07:18 BP 94/63 08/28/21 08:56 Pulse Ox 98 08/28/21 07:18 Body Mass Index 27.7 <GIOVANA Macias - Last Filed: 08/28/21 10:38> Const General: cooperative, no acute distress, alert and awake <GIOVANA Macias - Last Filed: 08/28/21 10:38> Orientation/consciousness: patient oriented x3 <GIOVANA Macias Last Filed: 08/28/21 10:38> Neck Neck: Yes normal visual inspection <GIOVANA Macias Last Filed: 08/28/21 10:38> Resp Effort & Inspection: normal respiratory effort, able to speak in complete sentences and not labored <ANTONIO Macias - Last Filed: 08/28/21 10:38> Auscultation: clear to auscultation bilaterally, no rhonchi and no wheezes <Dona Diez NP - Last Filed: 08/28/21 10:38> Cardio Jugular venous distension: JVD present <Dona MAURISIO Diez - Last Filed: 08/28/21 10:38> Rate: regular rate <Dona MAURISIO Diez - Last Filed: 08/28/21 10:38> Rhythm: regular rhythm <[facility] MAURISIO Diez - Last Filed: 08/28/21 10:38> Heart sounds: S1 normal heart sound present and S2 normal heart sound present <Dona Diez NP - Last Filed: 08/28/21 10:38> Peripheral pulses: Peripheral pulses 2+ throughout <Dona Chary [facility] - Last Filed: 08/28/21 10:38> GI Inspection: Yes normal to inspection <Dona Diez [facility] - Last Filed: 08/28/21 10:38> Neuro General: patient oriented x3 <Dona Chary [facility] - Last Filed: 08/28/21 10:38> Extrem Other: Plus one lower leg edema <Dona Diez [facility] - Last Filed: 08/28/21 10:38> General: Yes normal to inspection <Dona Chary [facility] - Last Filed: 08/28/21 10:38> Results Labs and Meds Result diagrams: : 08/28/21 10:11 08/28/21 10:11 <Dona Diez [facility] - Last Filed: 08/28/21 10:38> Lab results: Laboratory Results - last 24 hr 08/27/21 08/27/21 08/27/21 11:26 14:03 15:50 WBC RBC Hgb Hct MCV MCH MCHC RDW Plt Count MPV Immature Gran % (Auto) Neut % (Auto) Lymph % (Auto) [place] % (Auto) Eos % (Auto) Baso % (Auto) Lymph # (Auto) [place] # (Auto) Eos # (Auto) Baso # (Auto) Abs Immat Gran (auto) Absolute Neuts (auto) Absolute Nucleated RBC Nucleated RBC % (auto) Sodium 136 Potassium 4.6 Chloride 96 Carbon Dioxide 29 Anion Gap 16 BUN 84 H* Creatinine 3.34 H Estim Creat Clear Calc 17.1 Estimated GFR 18 POC Glucose 251 H 203 H Fasting Glucose 228 H D Calcium 9.9 D Total Bilirubin 1.0 AST 34 ALT 55 H Alkaline Phosphatase 89 Total Protein 6.8 Albumin 4.0 08/27/21 08/28/21 08/28/21 20:35 05:27 07:20 WBC 9.0 RBC 3.90 L Hgb 10.4 L Hct 33.3 L MCV 85.4 MCH 26.7 L MCHC 31.2 RDW 16.5 H Plt Count 213 MPV 11.2 Immature Gran % (Auto) 0.3 Neut % (Auto) 74.8 H Lymph % (Auto) 11.3 L [place] % (Auto) 11.8 H Eos % (Auto) 1.5 Baso % (Auto) 0.3 Lymph # (Auto) 1.0 L [place] # (Auto) 1.1 Eos # (Auto) 0.1 Baso # (Auto) 0.0 Abs Immat Gran (auto) 0.03 Absolute Neuts (auto) 6.7 Absolute Nucleated RBC 0.000 Nucleated RBC % (auto) 0.0 Sodium Potassium Chloride Carbon Dioxide Anion Gap BUN Creatinine Estim Creat Clear Calc Estimated GFR POC Glucose 211 H 133 H Fasting Glucose Calcium Total Bilirubin AST ALT Alkaline Phosphatase Total Protein Albumin <GIOVANA Macias - Last Filed: 08/28/21 10:38> Progress Note: A&P Assessment and plan (1) Acute on chronic diastolic (congestive) heart failure: Status: Acute <GIOVANA Macias - Last Filed: 08/28/21 10:38> Assessment and Plan: History of diastolic heart failure. Echocardiogram done 07/30/2021 shows EF 50-55%, grade 3 diastolic dysfunction, mild left atrial enlargement, [id number] MR. He is being treated for acute on chronic diastolic heart failure. He was initially diuresed and creatinine did go up. Creatinine 3.34 yesterday. His diuretics have been home on hold. Fluid balance -1100 cc since admission. exam today he does report shortness of breath at times. No hypoxia. Rales are present his lung bases and he has mild lower leg edema. CardioMEMS reading performed at the bedside showing PAD 22. His PAD goal is around 14. This indicates he continues to have fluid overload. Will restart torsemide at 40 mg b.i.d.. Hydralazine was added yesterday. Continue hydralazine 10 mg t.i.d. for afterload reduction. Will check CardioMEMS reading in the morning. Ongoing strict I&O monitoring. Close monitoring of electrolytes and kidney function. Electrolyte replacement as warranted. We will continue to follow. <GIOVANA Macias - Last Filed: 08/28/21 10:38> (2) Presence of CardioMEMS HF system: Status: Acute <GIOVANA Macias - Last Filed: 08/28/21 10:38> Assessment and Plan: His CardioMEMS monitoring pillow is at his bedside. Reading performed at bedside this morning with patient, results sent to [employer] web site and reviewed. PAS 59, YOLANDA 34, PAD 22 mm of mercury. PAD goal 14-15 for this patient. CardioMEMS charge code [id number] <GIOVANA Macias - Last Filed: 10:38> (3) MORTEZA (acute kidney injury): Status: Acute <GIOVANA Macias - Last Filed: 08/28/21 10:38> Assessment and Plan: History of CKD. Now with acute on chronic kidney ds. PAD reading elevating indicating volume overload. Resuming diuretic. Continue close monitoring of kidney function. <GIOVANA Macias - Last Filed: 08/28/21 10:38> (4) PAF (paroxysmal atrial fibrillation): Status: Acute <GIOVANA Macias - Last Filed: 08/28/21 10:38> Assessment and Plan: Hx of PAF. EKGs and tele shows sinus rhythm with sinus arrhythmia, first-degree AV block. No atrial fibrillation this admission. AFib is current ly suppressed with amiodarone. EKG done today shows QTC interval 493 milliseconds. His Eliquis is on hold due to hematuria. He is being evaluated by Urology for the hematuria and elevated PSA. No blood noted in urinal this am. <GIOVANA Macias - Last Filed: 10/07/21 10:38> (5) Hematuria: Status: Acute <DonaGIOVANA Villalobos - Last Filed: 08/28/21 10:38> (6) 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: Status: Acute <Dona Karlie GIOVANA Diez - Last Filed: 08/28/21 10:38> Assessment and Plan: Blood pressure running on the low side, asymptomatic. Continue with hydralazine. Will hold on the addition of Isordil at this time. Torsemide being restarted. Close blood pressure monitoring. Recommend check of blood pressure in each arm to see if there is a discrepancy. <GIOVANA Macias - Last Filed: 08/28/21 10:38> Fall Risk Details Current Medications: Current Medications Acetaminophen (Acetaminophen 325 Mg Tablet) 650 mg PO Q6H PRN PRN Reason: Pain, Mild (Pain Scale 1-3) Amiodarone HCl (Amiodarone Hcl 200 Mg Tablet) 200 mg PO DAILY [facility] Last Admin: 08/28/21 08:55 Dose: 200 mg Documented by: Atorvastatin Calcium (Atorvastatin Calcium 40 Mg Tablet) 40 mg PO BEDTIME [facility] Last Admin: 08/27/21 21:51 Dose: 40 mg Documented by: Bicalutamide (Bicalutamide 50 Mg Tablet) 50 mg PO DAILY [facility] Last Admin: 08/28/21 08:54 Dose: 50 mg Documented by: Budesonide (Budesonide 180 Mcg Aer.Pow.Ba) 1 puff INHALE BID [facility] Last Admin: 08/28/21 07:50 Dose: 1 puff Documented by: Dextrose (Dextrose 50 % 25 Gm/50 Ml Vial) 25 gm IVPUSH Q15M PRN; Protocol PRN Reason: per Hypoglycemia Standing Ord. Finasteride (Finasteride 5 Mg Tablet) 5 mg PO DAILY [facility] Last Admin: 08/28/21 08:54 Dose: 5 mg Documented by: Glucose (Glucose Gel 15 Gm Gel..Gram.) 15 gm PO Q15M PRN; Protocol PRN Reason: per Hypoglycemia Standing Ord. Hydralazine HCl (Hydralazine Hcl 10 Mg Tablet) 10 mg PO TID [facility]; Protocol Last Admin: 08/28/21 08:56 Dose: 10 mg Documented by: Insulin Human Lispro (Insulin Lispro 100 Unit/Ml 3 Ml Vial) 0 unit SUBCUT QIDACHS [facility]; Protocol Last Admin: 08/28/21 07:37 Dose: Not Given Documented by: Lactulose (Lactulose 20 Gm/30 Ml Solution) 10 gm PO DAILY [facility] Last Admin: 08/28/21 08:57 Dose: 10 gm Documented by: Melatonin (Melatonin 3 Mg Tablet) 6 mg PO BEDTIME PRN PRN Reason: Insomnia Last Admin: 08/27/21 21:51 Dose: 6 mg Documented by: Omeprazole (Omeprazole 20 Mg Capsule.Dr) 20 mg PO DAILY [facility] Last Admin: 08/28/21 08:57 Dose: 20 mg Documented by: Ondansetron HCl (Ondansetron Hcl 4 Mg/2 Ml Vial) 4 mg IVPUSH Q8H PRN PRN Reason: Nausea and Vomiting Last Admin: 08/24/21 16:52 Dose: 4 mg Documented by: Pharmacy Consult (Consult Rx Perform Med Rec) 1 each MISCELLANE ONCE PRN PRN Reason: Consult order Potassium Chloride (Potassium Chloride Packet 20 Meq Packet) 20 meq PO DAILY [facility] Last Admin: 08/28/21 08:57 Dose: 20 meq Documented by: Sodium Chloride (0.9 % Sodium Chloride Flush 3 Ml Syringe) 3 ml IVFLUSH QSHIFT [facility] Last Admin: 08/28/21 08:54 Dose: 3 ml Documented by: Vitamin D (Cholecalciferol (Vitamin D3) 25 Mcg Tablet) 50 mcg PO DAILY@1200 [facility] Last Admin: 08/27/21 11:48 Dose: 50 mcg Documented by: <GIOVANA Macias - Last Filed: 08/28/21 10:38> Time Spent With Patient Time: Total time spent is greater than 50% in coordination of care (as documented) at patient's floor/unit and/or counseling patient: 30 <GIOVANA Macias - Last Filed: 08/28/21 10:38> Time with patient: 25 - 35 minutes <GIOVANA Macias - Last Filed: 08/28/21 10:38> Progress Note: Quality Stroke Does the patient have a stroke diagnosis?: No <GIOVANA Macias - Last Filed: 08/28/21 10:38> Procedures Date of Service Date of Service: 08/28/21 <GIOVANA Macias - Last Filed: 08/28/21 10:38>
[2021-08-28 10:17] LABS: MANUAL DIFF FLAG NO
[2021-08-28 10:18] LABS: Basophils Percent Auto 0.3 % (0-2); Eosinophils Absolute Auto 0.2 X10*3/uL (0.0-0.4); Eosinophils Percent Auto 1.7 % (0-4); Hematocrit 36.3 % (42-52); Hemoglobin 11.6 g/dl (14.0-18.0); Imm Gran Abs Auto 0.03 X10*3/uL (0.00-0.03); Imm Gran Pct Auto 0.3 % (0.0-0.4); Lymphocytes Absolute Auto 1.3 X10*3/uL (1.2-4.9); Lymphocytes Percent Auto 13.9 % (20-40); Mean Corpuscular Hemoglobin 27.6 pg (27.0-33.0); Mean Corpuscular Volume 86.4 fL (80-98); Mean Platelet Volume 11.5 fL (9.4-12.4); Monocytes Absolute Auto 1.1 X10*3/uL (0.1-1.2); Monocytes Percent Auto 11.6 % (2-11); Neutrophils Absolute Auto 6.8 X10*3/uL (2.0-8.3); Neutrophils Percent Auto 72.2 % (45-73); Platelet Count 247 X10*3/uL (160-400); Red Cell Distribution Width 16.6 % (11.0-16.0); White Blood Count 9.5 X10*3/uL (4.8-10.8)
[2021-08-28 10:35] LABS: Alanine Aminotransferase 50 U/L (0-40); Albumin Level 3.9 g/dL (3.5-5.0); Alkaline Phosphatase 83 U/L (39-117); Anion Gap 16 (12-20); Aspartate Amino Transferase 29 U/L (5-37); Bilirubin Total 1.3 mg/dL (0.0-1.0); Blood Urea Nitrogen 80 mg/dL (9-16); Calcium 9.6 mg/dL (8.4-10.2); Carbon Dioxide 28 mmol/L (22-29); Chloride 95 mmol/L (96-108); Creatinine Clr Calc Pharmacy 17.8; Estimated Glomerular Filt Rate 19; Glucose Fasting 272 mg/dL (60-99); Potassium 4.3 mmol/L (3.3-5.1); Sodium 135 mmol/L (135-145); Total Protein 6.7 g/dL (6.5-8.0)
[2021-08-28 11:29] LABS: Glucose, Whole Blood 225 mg/dL (60-115)
[2021-08-28] MEDS: Torsemide 20 MG TABLET 40 MG PO ×2 (11:45→17:52)
[2021-08-28] MEDS: Cholecalciferol (Vitamin D3) 25 MCG TABLET 50 MCG PO (11:46)
[2021-08-28] MEDS: Insulin Lispro 100 UNIT/ML 3 ML VIAL SUBCUT ×3 (11:46→21:33)
[2021-08-28 16:15] LABS: Glucose, Whole Blood 205 mg/dL (60-115)
--- NOTE | 2021-08-28 16:57 | HO.PM.IMPN ---
Subjective Subjective Date of Service: 08/28/21 Interval History: No acute events overnight. Denies shortness of breath. States he is breathing better with diuresis. Ambulating in room without issue. Review of Systems Denies chest pain Denies shortness of breath Denies nausea vomiting diarrhea Physical Exam Vital Signs: Vital Signs: Last Vital Signs Temp 97.4 F 08/28/21 15:40 Pulse 64 08/28/21 15:40 Resp 16 08/28/21 15:40 BP 105/62 08/28/21 15:40 Pulse Ox 100 08/28/21 15:40 Body Mass Index 27.7 Const: Other: No acute distress. Resting comfortably HENMT: Other: Oral pharynx clear; membranes moist Resp: Other: The ER clear to auscultation. No rales rhonchi is wheezes. Good aeration to the bases Cardio: Other: No S4; positive S1-S2; no S4 murmurs of gallops. Regular rate and rhythm GI: Other: Soft nontender nondistended with normoactive bowel sounds x4 quadrants. No peritoneal signs Neuro: Other: Age-appropriate nonfocal Extrem: Other: No edema bilaterally Objective Data Active Medications Acetaminophen (Acetaminophen 325 Mg Tablet) 650 mg PO Q6H PRN PRN Reason: Pain, Mild (Pain Scale 1-3) Amiodarone HCl (Amiodarone Hcl 200 Mg Tablet) 200 mg PO DAILY [facility] Last Admin: 08/28/21 08:55 Dose: 200 mg Documented by: MATEUSZ Atorvastatin Calcium (Atorvastatin Calcium 40 Mg Tablet) 40 mg PO BEDTIME [facility] Last Admin: 08/27/21 21:51 Dose: 40 mg Documented by: RENAN Bicalutamide (Bicalutamide 50 Mg Tablet) 50 mg PO DAILY [facility] Last Admin: 08/28/21 08:54 Dose: 50 mg Documented by: MATEUSZ Budesonide (Budesonide 180 Mcg Aer.Pow.Ba) 1 puff INHALE BID [facility] Last Admin: 08/28/21 07:50 Dose: 1 puff Documented by: CARMEN Dextrose (Dextrose 50 % 25 Gm/50 Ml Vial) 25 gm IVPUSH Q15M PRN; Protocol PRN Reason: per Hypoglycemia Standing Ord. Finasteride (Finasteride 5 Mg Tablet) 5 mg PO DAILY [facility] Last Admin: 08/28/21 08:54 Dose: 5 mg Documented by: MATEUSZ Glucose (Glucose Gel 15 Gm Gel..Gram.) 15 gm PO Q15M PRN; Protocol PRN Reason: per Hypoglycemia Standing Ord. Hydralazine HCl (Hydralazine Hcl 10 Mg Tablet) 10 mg PO TID [facility]; Protocol Last Admin: 08/28/21 14:18 Dose: 10 mg Documented by: MATEUSZ Insulin Human Lispro (Insulin Lispro 100 Unit/Ml 3 Ml Vial) 0 unit SUBCUT QIDACHS [facility]; Protocol Last Admin: 08/28/21 11:46 Dose: 4 unit Documented by: MATEUSZ Lactulose (Lactulose 20 Gm/30 Ml Solution) 10 gm PO DAILY [facility] Last Admin: 08/28/21 08:57 Dose: 10 gm Documented by: MATEUSZ Melatonin (Melatonin 3 Mg Tablet) 6 mg PO BEDTIME PRN PRN Reason: Insomnia Last Admin: 08/27/21 21:51 Dose: 6 mg Documented by: RENAN Omeprazole (Omeprazole 20 Mg Capsule.Dr) 20 mg PO DAILY [facility] Last Admin: 08/28/21 08:57 Dose: 20 mg Documented by: MATEUSZ Ondansetron HCl (Ondansetron Hcl 4 Mg/2 Ml Vial) 4 mg IVPUSH Q8H PRN PRN Reason: Nausea and Vomiting Last Admin: 08/24/21 16:52 Dose: 4 mg Documented by: BREANNA Pharmacy Consult (Consult Rx Perform Med Rec) 1 each MISCELLANE ONCE PRN PRN Reason: Consult order Potassium Chloride (Potassium Chloride Packet 20 Meq Packet) 20 meq PO DAILY [facility] Last Admin: 08/28/21 08:57 Dose: 20 meq Documented by: MATEUSZ Sodium Chloride (0.9 % Sodium Chloride Flush 3 Ml Syringe) 3 ml IVFLUSH QSHIFT [facility] Last Admin: 08/28/21 14:19 Dose: 3 ml Documented by: MATEUSZ Torsemide (Torsemide 20 Mg Tablet) 40 mg PO BID@0900,1700 [facility]; Protocol Last Admin: 08/28/21 11:45 Dose: 40 mg Documented by: MATEUSZ Vitamin D (Cholecalciferol (Vitamin D3) 25 Mcg Tablet) 50 mcg PO DAILY@1200 [facility] Last Admin: 08/28/21 11:46 Dose: 50 mcg Documented by: MATEUSZ Labs CBC & Chem 7: 08/28/21 10:11 08/28/21 10:11 Labs: Laboratory Results - last 24 hr 08/27/21 08/28/21 08/28/21 20:35 05:27 07:20 MCV 85.4 MCH 26.7 L MCHC 31.2 RDW 16.5 H Plt Count 213 MPV 11.2 Immature Gran % (Auto) 0.3 Neut % (Auto) 74.8 H Lymph % (Auto) 11.3 L [place] % (Auto) 11.8 H Eos % (Auto) 1.5 Baso % (Auto) 0.3 Lymph # (Auto) 1.0 L [place] # (Auto) 1.1 Eos # (Auto) 0.1 Baso # (Auto) 0.0 Abs Immat Gran (auto) 0.03 Absolute Neuts (auto) 6.7 Absolute Nucleated RBC 0.000 Nucleated RBC % (auto) 0.0 Anion Gap Estim Creat Clear Calc Estimated GFR POC Glucose 211 H 133 H Fasting Glucose Calcium Total Bilirubin AST ALT Alkaline Phosphatase Total Protein Albumin 08/28/21 08/28/21 08/28/21 10:11 10:11 10:58 MCV 86.4 MCH 27.6 MCHC 32.0 RDW 16.6 H Plt Count 247 MPV 11.5 Immature Gran % (Auto) 0.3 Neut % (Auto) 72.2 Lymph % (Auto) 13.9 L [place] % (Auto) 11.6 H Eos % (Auto) 1.7 Baso % (Auto) 0.3 Lymph # (Auto) 1.3 [place] # (Auto) 1.1 Eos # (Auto) 0.2 Baso # (Auto) 0.0 Abs Immat Gran (auto) 0.03 Absolute Neuts (auto) 6.8 Absolute Nucleated RBC 0.000 Nucleated RBC % (auto) 0.0 Anion Gap 16 Estim Creat Clear Calc 17.8 Estimated GFR 19 POC Glucose 225 H Fasting Glucose 272 H Calcium 9.6 Total Bilirubin 1.3 H AST 29 ALT 50 H Alkaline Phosphatase 83 Total Protein 6.7 Albumin 3.9 08/28/21 15:46 MCV MCH MCHC RDW Plt Count MPV Immature Gran % (Auto) Neut % (Auto) Lymph % (Auto) [place] % (Auto) Eos % (Auto) Baso % (Auto) Lymph # (Auto) [place] # (Auto) Eos # (Auto) Baso # (Auto) Abs Immat Gran (auto) Absolute Neuts (auto) Absolute Nucleated RBC Nucleated RBC % (auto) Anion Gap Estim Creat Clear Calc Estimated GFR POC Glucose 205 H Fasting Glucose Calcium Total Bilirubin AST ALT Alkaline Phosphatase Total Protein Albumin Assessment and Plan (1) Acute on chronic diastolic (congestive) heart failure: Status: Acute (2) MORTEZA (acute kidney injury): Status: Acute Assessment and Plan: 76-year-old Macanese-speaking male admitted with acute on chronic congestive heart failure.? 1.Acute on chronic heart failure with preserved ejection fraction with history of grade 3 diastolic dysfunction, EF 50-55% Diuretics restarted with Tersemide.. Follow BNP daily; titrate oxygen as tolerated. Follow intake and output, daily weights Monitor on telemetry 2.Hematuria in backdrop of known prostate cancer: Bone scan negative for metastatic disease. Continue bicalutamide; continue finasteride QTC stable 3. MORTEZA on CKD; Creatinine still elevated off diuresis. As per Cardiology will add back Torsemide. Potassium decreased to 20 mEq a day Discussed with Cardiology 4. PAF; EKG normal sinus rhythm today Will discuss anticoagulation with Cardiology going forward 5.Diabetes mellitus Sliding scale, ADA diet 6.Obesity.? BMI 28.3 Discussed the importance of weight management as this may be contributing to worsening of other comorbidities DVT prophylaxis with mechanical compression bootsl Full code Quality Stroke Does the patient have a stroke diagnosis?: No VTE Prior VTE?: No VTE Risk Level:: Medical - moderate - high VTE Device Contraindication: N/A - Device Ordered VTE Drug Contraindication: Treatment Not Indicated
[2021-08-28 18:15] LABS: Alanine Aminotransferase 54 U/L (0-40); Albumin Level 3.9 g/dL (3.5-5.0); Alkaline Phosphatase 83 U/L (39-117); Anion Gap 18 (12-20); Aspartate Amino Transferase 32 U/L (5-37); Bilirubin Total 1.1 mg/dL (0.0-1.0); Blood Urea Nitrogen 78 mg/dL (9-16); Calcium 9.8 mg/dL (8.4-10.2); Carbon Dioxide 27 mmol/L (22-29); Chloride 95 mmol/L (96-108); Estimated Glomerular Filt Rate 19; Glucose Fasting 227 mg/dL (60-99); Potassium 4.8 mmol/L (3.3-5.1); Sodium 135 mmol/L (135-145); Total Protein 6.7 g/dL (6.5-8.0)
[2021-08-28 20:33] LABS: Glucose, Whole Blood 233 mg/dL (60-115)
[2021-08-28] MEDS: Atorvastatin Calcium 40 MG TABLET PO (21:33)
[2021-08-29] VITALS: BP 106/57; PULSE 69; RESP 18; TEMP 36.6; O2SAT 100
[2021-08-29 03:39] VITALS: BP 106/61; PULSE 75; RESP 18; TEMP 36.6; O2SAT 99
[2021-08-29 05:44] VITALS: BMI 27.8
[2021-08-29 07:13] LABS: MANUAL DIFF FLAG NO
[2021-08-29] MEDS: Budesonide 180 MCG AER.POW.BA 1 PUFF INHALE (07:17)
[2021-08-29 07:21] LABS: Basophils Absolute Auto 0.1 X10*3/uL (0.0-0.2); Basophils Percent Auto 0.6 % (0-2); Eosinophils Absolute Auto 0.2 X10*3/uL (0.0-0.4); Eosinophils Percent Auto 2.8 % (0-4); Hematocrit 32.9 % (42-52); Hemoglobin 10.4 g/dl (14.0-18.0); Imm Gran Abs Auto 0.02 X10*3/uL (0.00-0.03); Imm Gran Pct Auto 0.2 % (0.0-0.4); Lymphocytes Absolute Auto 1.4 X10*3/uL (1.2-4.9); Lymphocytes Percent Auto 16.4 % (20-40); Mean Corpuscular HGB Conc 31.6 g/dl (31.0-36.0); Mean Corpuscular Volume 85.5 fL (80-98); Monocytes Absolute Auto 1.2 X10*3/uL (0.1-1.2); Monocytes Percent Auto 13.8 % (2-11); Neutrophils Absolute Auto 5.6 X10*3/uL (2.0-8.3); Neutrophils Percent Auto 66.2 % (45-73); Platelet Count 215 X10*3/uL (160-400); Red Blood Count 3.85 X10*6/uL (4.60-5.80); Red Cell Distribution Width 16.6 % (11.0-16.0); White Blood Count 8.5 X10*3/uL (4.8-10.8)
[2021-08-29 07:21] LABS: Glucose, Whole Blood 138 mg/dL (60-115)
[2021-08-29 08:00] VITALS: BP 111/57; PULSE 81; RESP 17; TEMP 36.6; O2SAT 97
[2021-08-29 08:33] LABS: Alanine Aminotransferase 45 U/L (0-40); Albumin Level 3.5 g/dL (3.5-5.0); Alkaline Phosphatase 74 U/L (39-117); Anion Gap 19 (12-20); Aspartate Amino Transferase 26 U/L (5-37); Bilirubin Total 1.1 mg/dL (0.0-1.0); Blood Urea Nitrogen 81 mg/dL (9-16); Calcium 9.2 mg/dL (8.4-10.2); Carbon Dioxide 27 mmol/L (22-29); Chloride 97 mmol/L (96-108); Creatinine Clr Calc Pharmacy 18.3; Estimated Glomerular Filt Rate 20; Glucose Fasting 135 mg/dL (60-99); Potassium 3.6 mmol/L (3.3-5.1); Sodium 139 mmol/L (135-145); Total Protein 5.9 g/dL (6.5-8.0)
[2021-08-29 08:42] VITALS: BP 111/57; PULSE 81
[2021-08-29] MEDS: Amiodarone HCL 200 MG TABLET PO (08:42)
[2021-08-29] MEDS: Bicalutamide 50 MG TABLET PO (08:42)
[2021-08-29] MEDS: 0.9 % Sodium Chloride Flush 3 ML SYRINGE IVFLUSH (08:42)
[2021-08-29] MEDS: Potassium Chloride Packet 20 MEQ PACKET PO (08:42)
[2021-08-29] MEDS: Omeprazole 20 MG CAPSULE.DR PO (08:42)
[2021-08-29] MEDS: hydrALAZINE HCl 10 MG TABLET PO (08:42)
[2021-08-29] MEDS: Torsemide 20 MG TABLET 40 MG PO (08:42)
[2021-08-29] MEDS: Finasteride 5 MG TABLET PO (08:42)
[2021-08-29 11:09] LABS: Glucose, Whole Blood 312 mg/dL (60-115)
[2021-08-29] MEDS: Cholecalciferol (Vitamin D3) 25 MCG TABLET 50 MCG PO (11:32)
[2021-08-29] MEDS: Insulin Lispro 100 UNIT/ML 3 ML VIAL SUBCUT (11:34)
--- NOTE | 2021-08-29 11:35 | PM.PNCARD ---
Subjective Subjective Date of Service: 08/29/21 Principal diagnosis: CHF, MORTEZA Interval history: Doing well. Had some orthopnea over night. PAD on Cardiomems 15 mm Hg. Physical Exam Vital Signs: Last Vital Signs Temp 97.9 F 08/29/21 08:00 Pulse 81 08/29/21 08:42 Resp 17 08/29/21 08:00 BP 111/57 L 08/29/21 08:42 Pulse Ox 97 08/29/21 08:00 Body Mass Index 27.8 GENERAL APPEARANCE: in no acute distress, pleasant. NECK: no carotid bruit, +JVD SKIN: no suspicious lesions, warm and dry. HEART: no murmurs, regular rate and rhythm. LUNGS: clear to auscultation bilaterally. ABDOMEN: soft, nontender. EXTREMITIES: no edema. PERIPHERAL PULSES: equal. NEUROLOGIC: No gross deficits, AAO X 3 Results Labs and Meds Result diagrams: 08/29/21 06:42 08/29/21 06:42 Lab results: Laboratory Results - last 24 hr 08/28/21 08/28/21 08/28/21 15:46 17:19 20:15 WBC RBC Hgb Hct MCV MCH MCHC RDW Plt Count MPV Immature Gran % (Auto) Neut % (Auto) Lymph % (Auto) [place] % (Auto) Eos % (Auto) Baso % (Auto) Lymph # (Auto) [place] # (Auto) Eos # (Auto) Baso # (Auto) Abs Immat Gran (auto) Absolute Neuts (auto) Absolute Nucleated RBC Nucleated RBC % (auto) Sodium 135 Potassium 4.8 Chloride 95 L Carbon Dioxide 27 Anion Gap 18 BUN 78 H Creatinine 3.17 H Estim Creat Clear Calc 18.0 Estimated GFR 19 POC Glucose 205 H 233 H Fasting Glucose 227 H Calcium 9.8 Total Bilirubin 1.1 H AST 32 ALT 54 H Alkaline Phosphatase 83 Total Protein 6.7 Albumin 3.9 08/29/21 08/29/21 08/29/21 06:42 06:42 07:14 WBC 8.5 RBC 3.85 L Hgb 10.4 L Hct 32.9 L MCV 85.5 MCH 27.0 MCHC 31.6 RDW 16.6 H Plt Count 215 MPV 12.0 Immature Gran % (Auto) 0.2 Neut % (Auto) 66.2 Lymph % (Auto) 16.4 L [place] % (Auto) 13.8 H Eos % (Auto) 2.8 Baso % (Auto) 0.6 Lymph # (Auto) 1.4 [place] # (Auto) 1.2 Eos # (Auto) 0.2 Baso # (Auto) 0.1 Abs Immat Gran (auto) 0.02 Absolute Neuts (auto) 5.6 Absolute Nucleated RBC 0.000 Nucleated RBC % (auto) 0.0 Sodium 139 Potassium 3.6 D Chloride 97 Carbon Dioxide 27 Anion Gap 19 BUN 81 H* Creatinine 3.12 H Estim Creat Clear Calc 18.3 Estimated GFR 20 POC Glucose 138 H Fasting Glucose 135 H D Calcium 9.2 D Total Bilirubin 1.1 H AST 26 ALT 45 H Alkaline Phosphatase 74 Total Protein 5.9 L Albumin 3.5 08/29/21 10:57 WBC RBC Hgb Hct MCV MCH MCHC RDW Plt Count MPV Immature Gran % (Auto) Neut % (Auto) Lymph % (Auto) [place] % (Auto) Eos % (Auto) Baso % (Auto) Lymph # (Auto) [place] # (Auto) Eos # (Auto) Baso # (Auto) Abs Immat Gran (auto) Absolute Neuts (auto) Absolute Nucleated RBC Nucleated RBC % (auto) Sodium Potassium Chloride Carbon Dioxide Anion Gap BUN Creatinine Estim Creat Clear Calc Estimated GFR POC Glucose 312 H Fasting Glucose Calcium Total Bilirubin AST ALT Alkaline Phosphatase Total Protein Albumin Progress Note: A&P Assessment and plan (1) Acute on chronic diastolic (congestive) heart failure: Status: Acute Assessment and Plan: Pleasant 76-year-old gentleman who is here for acute on chronic congestive heart failure and hematuria. His anticoagulation was held and he has seen Urology. His creatinine worsened with diuresis but he was feeling better. We checked his PA diastolic pressure with CardioMEMS and initially it was 20 but after addition of torsemide 40 mg twice a day it has improved down to 14-15 mm Hg. He continues to feel okay with some orthopnea at nighttime. I think we continue torsemide the same dose. His creatinine is plateaued at this point. Titrating hydralazine to 25 mg 3 times a day. Anticoagulation has been resumed since his hematuria is better. Urology is suspecting that he has prostate cancer, likely his bone scan has been normal. Thank you for allowing me to participate in the care of your patient.? Please feel free to contact me if you have any questions. Fall Risk Details Current Medications: Current Medications Acetaminophen (Acetaminophen 325 Mg Tablet) 650 mg PO Q6H PRN PRN Reason: Pain, Mild (Pain Scale 1-3) Amiodarone HCl (Amiodarone Hcl 200 Mg Tablet) 200 mg PO DAILY [facility] Last Admin: 08/29/21 08:42 Dose: 200 mg Documented by: Atorvastatin Calcium (Atorvastatin Calcium 40 Mg Tablet) 40 mg PO BEDTIME [facility] Last Admin: 08/28/21 21:33 Dose: 40 mg Documented by: Bicalutamide (Bicalutamide 50 Mg Tablet) 50 mg PO DAILY [facility] Last Admin: 08/29/21 08:42 Dose: 50 mg Documented by: Budesonide (Budesonide 180 Mcg Aer.Pow.Ba) 1 puff INHALE BID [facility] Last Admin: 08/29/21 07:17 Dose: 1 puff Documented by: Dextrose (Dextrose 50 % 25 Gm/50 Ml Vial) 25 gm IVPUSH Q15M PRN; Protocol PRN Reason: per Hypoglycemia Standing Ord. Finasteride (Finasteride 5 Mg Tablet) 5 mg PO DAILY [facility] Last Admin: 08/29/21 08:42 Dose: 5 mg Documented by: Glucose (Glucose Gel 15 Gm Gel..Gram.) 15 gm PO Q15M PRN; Protocol PRN Reason: per Hypoglycemia Standing Ord. Hydralazine HCl (Hydralazine Hcl 10 Mg Tablet) 10 mg PO TID [facility]; Protocol Last Admin: 08/29/21 08:42 Dose: 10 mg Documented by: Insulin Human Lispro (Insulin Lispro 100 Unit/Ml 3 Ml Vial) 0 unit SUBCUT QIDACHS [facility]; Protocol Last Admin: 08/29/21 11:34 Dose: 8 unit Documented by: Lactulose (Lactulose 20 Gm/30 Ml Solution) 10 gm PO DAILY [facility] Last Admin: 08/29/21 08:42 Dose: Not Given Documented by: Melatonin (Melatonin 3 Mg Tablet) 6 mg PO BEDTIME PRN PRN Reason: Insomnia Last Admin: 08/27/21 21:51 Dose: 6 mg Documented by: Omeprazole (Omeprazole 20 Mg Capsule.) 20 mg PO DAILY [facility] Last Admin: 08/29/21 08:42 Dose: 20 mg Documented by: Pharmacy Consult (Consult Rx Perform Med Rec) 1 each MISCELLANE ONCE PRN PRN Reason: Consult order Potassium Chloride (Potassium Chloride Packet 20 Meq Packet) 20 meq PO DAILY [facility] Last Admin: 08/29/21 08:42 Dose: 20 meq Documented by: Sodium Chloride (0.9 % Sodium Chloride Flush 3 Ml Syringe) 3 ml IVFLUSH QSHIFT [facility] Last Admin: 08/29/21 08:42 Dose: 3 ml Documented by: Torsemide (Torsemide 20 Mg Tablet) 40 mg PO BID@0900,1700 KIM; Protocol Last Admin: 08/29/21 08:42 Dose: 40 mg Documented by: Vitamin D (Cholecalciferol (Vitamin D3) 25 Mcg Tablet) 50 mcg PO DAILY@1200 KIM Last Admin: 08/29/21 11:32 Dose: 50 mcg Documented by: Time Spent With Patient Time: Total time spent is greater than 50% in coordination of care (as documented) at patient's floor/unit and/or counseling patient: Time with patient: 15 - 24 minutes Progress Note: Quality Stroke Does the patient have a stroke diagnosis?: No Procedures Date of Service Date of Service: 08/29/21
[2021-08-29 11:41] VITALS: BP 118/56; PULSE 86; RESP 18; TEMP 36.8; O2SAT 99
--- NOTE | 2021-08-29 13:17 | PM.DS ---
DS: Providers Provider Date of Service: 08/29/21 Date of admission: 08/23/21 15:20 Date of discharge: 08/29/21 Primary care physician: Miriam Gray MD Consults: 08/23/21 15:23 Consult to Cardiology Routine Consulting Provider: Jas Dudley Reason for consultation: heart failure Has provider been notified: No Consult to Urology Routine Consulting Provider: Omkar Ceballos Reason for consultation: elevated PSA, hematuria Has provider been notified: No DS: Diagnosis Discharge Diagnosis (1) Acute on chronic diastolic (congestive) heart failure: Status: Acute DS: Summary Hospital Course Hospital Course: 72 year-old Mongolian-speaking male presented to the ER with complaints of shortness of breath overnight.? He reports that he woke up with some pressure to his left arm that lasted for few minutes and went away on its own but he did develop some shortness of breath especially with ambulation and orthopnea.? He denied chest pain, nausea, vomiting, diarrhea, recent illness.? He does have a history of heart failure and is on torsemide and Zaroxolyn at home.? He also reported some bloody urine that has been ongoing for about a month and he was scheduled to see a urologist.? In his chart does look like he had a PSA drawn on August 13 which was elevated at 63.44.? His troponin was also elevated at 448.9 however this is normally pretty elevated.? BNP 1447, creatinine 3.06.? Other than that vital signs are stable.? In the ER he was given IV Lasix.? He will be admitted for further management and treatment of acute on chronic congestive heart failure with hematuria Hospital course: Patient was seen and evaluated by Cardiology who adjusted Lasix however this was not tolerated based on renal function; symptomaticly the patient improved. Given his worsening renal function Lasix was held for 2 days with improvement in renal function. Patient however, became more symptomatic despite improvement in renal function. Final decision was to place patient on torsemide 40 mg b.i.d. and follow up as an outpatient. Patient also presented with hematuria in the backdrop of prostate cancer. Was seen by Urology and started on bicalutamide. EKG was followed secondary to interaction with amiodarone. QTC remains stable with addition of drug. On the day of discharge, patient is breathing well by his account. Will tolerate renal function stable at this new baseline. Follow up with PCP in Renal as outpatient . Status at Discharge Functional status at discharge: uses cane/walker Time Spent with Patient Time attestation: Total time spent providing and/or coordinating discharge services: Discharge coordination time: Greater than 30 minutes Quality: Stroke Does the patient have a stroke diagnosis?: No Physical Exam Vital Signs: Vital Signs: Last Vital Signs Temp 98.3 F 08/29/21 11:41 Pulse 86 08/29/21 11:41 Resp 18 08/29/21 11:41 BP 118/56 L 08/29/21 11:41 Pulse Ox 99 08/29/21 11:41 Body Mass Index 27.8 Const: Other: Awake alert oriented x3 no acute distress Neck: Other: Mild JVD bilaterally Resp: Other: Clear to auscultation; no rales rhonchi or wheezes Cardio: Other: No S4; positive S1-S2; no S3 regular rate and rhythm at this time GI: Other: Soft nontender nondistended with normoactive bowel sounds Neuro: Other: Age-appropriate nonfocal Extrem: Other: The no edema bilaterally DS: Data Data Completed and Pending Completed studies during hospitalization [Text1]: Procedures Hindu of Cardiac Rhythm, Single (05/01/21) Labs on day of discharge: Laboratory Results - last 24 hr 08/28/21 08/28/21 08/28/21 15:46 17:19 20:15 WBC RBC Hgb Hct MCV MCH MCHC RDW Plt Count MPV Immature Gran % (Auto) Neut % (Auto) Lymph % (Auto) [place] % (Auto) Eos % (Auto) Baso % (Auto) Lymph # (Auto) [place] # (Auto) Eos # (Auto) Baso # (Auto) Abs Immat Gran (auto) Absolute Neuts (auto) Absolute Nucleated RBC Nucleated RBC % (auto) Sodium 135 Potassium 4.8 Chloride 95 L Carbon Dioxide 27 Anion Gap 18 BUN 78 H Creatinine 3.17 H Estim Creat Clear Calc 18.0 Estimated GFR 19 POC Glucose 205 H 233 H Fasting Glucose 227 H Calcium 9.8 Total Bilirubin 1.1 H AST 32 ALT 54 H Alkaline Phosphatase 83 Total Protein 6.7 Albumin 3.9 08/29/21 08/29/21 08/29/21 06:42 06:42 07:14 WBC 8.5 RBC 3.85 L Hgb 10.4 L Hct 32.9 L MCV 85.5 MCH 27.0 MCHC 31.6 RDW 16.6 H Plt Count 215 MPV 12.0 Immature Gran % (Auto) 0.2 Neut % (Auto) 66.2 Lymph % (Auto) 16.4 L [place] % (Auto) 13.8 H Eos % (Auto) 2.8 Baso % (Auto) 0.6 Lymph # (Auto) 1.4 [place] # (Auto) 1.2 Eos # (Auto) 0.2 Baso # (Auto) 0.1 Abs Immat Gran (auto) 0.02 Absolute Neuts (auto) 5.6 Absolute Nucleated RBC 0.000 Nucleated RBC % (auto) 0.0 Sodium 139 Potassium 3.6 D Chloride 97 Carbon Dioxide 27 Anion Gap 19 BUN 81 H* Creatinine 3.12 H Estim Creat Clear Calc 18.3 Estimated GFR 20 POC Glucose 138 H Fasting Glucose 135 H D Calcium 9.2 D Total Bilirubin 1.1 H AST 26 ALT 45 H Alkaline Phosphatase 74 Total Protein 5.9 L Albumin 3.5 08/29/21 10:57 WBC RBC Hgb Hct MCV MCH MCHC RDW Plt Count MPV Immature Gran % (Auto) Neut % (Auto) Lymph % (Auto) [place] % (Auto) Eos % (Auto) Baso % (Auto) Lymph # (Auto) [place] # (Auto) Eos # (Auto) Baso # (Auto) Abs Immat Gran (auto) Absolute Neuts (auto) Absolute Nucleated RBC Nucleated RBC % (auto) Sodium Potassium Chloride Carbon Dioxide Anion Gap BUN Creatinine Estim Creat Clear Calc Estimated GFR POC Glucose 312 H Fasting Glucose Calcium Total Bilirubin AST ALT Alkaline Phosphatase Total Protein Albumin Discharge Plan Discharge Patient Disposition: Home Health Service Discharge Diagnosis: CHF Referrals: Miriam Gray MD [Primary Care Provider] - 1 Week Discharge Medications: New bicalutamide 50 mg Tablet 50 mg PO DAILY Qty: 30 RF: 0 hydralazine 25 mg Tablet 25 mg PO TID Qty: 60 RF: 0 torsemide 20 mg tablet 40 mg PO BID Qty: 120 RF: 0 Continued insulin aspart U-100 [Novolog Flexpen U-100 Insulin] 100 unit/mL (3 mL) insulin pen 18 - 22 unit subcut TID 90 Days Qty: 60 RF: 1 atorvastatin 40 mg tablet 40 mg PO QPM RF: 0 amiodarone 200 mg Tablet 200 mg PO DAILY RF: 0 omeprazole 20 mg Capsule,Delayed Release(Dr/Ec) 20 mg PO DAILY RF: 0 Pulmicort Flexhaler 90 mcg/actuation aerosol powdr breath activated 2 puff inhalation BID RF: 0 cholecalciferol (vitamin D3) [Vitamin D3] 50 mcg (2,000 unit) Capsule 50 mcg PO QNOON RF: 0 Eliquis 5 mg Tablet 5 mg PO BID RF: 0 Trulicity 1.5 mg/0.5 mL pen injector 1.5 mg subcut QWEEK RF: 0 Discontinued metolazone 2.5 mg Tablet 2.5 mg PO Q OTHER DAY RF: 0 torsemide 20 mg Tablet 20 mg PO QNOON RF: 0 torsemide 20 mg Tablet 40 mg PO DAILY RF: 0 potassium chloride 20 mEq tablet,ER particles/crystals 40 meq PO QNOON RF: 0 No Action (DME) lancets 33 gauge misc See Rx Instructions ea Not Applicable QID Qty: 100 RF: 0 (DME) blood sugar diagnostic Strip See Rx Instructions ea Not Applicable QID Qty: 10 RF: 0 (DME) pen needle, diabetic 31 gauge x 5/16 needle See Rx Instructions ea subcut .MEDSUPPLY Qty: 1200 RF: 0 Discharge Orders: Discharge Order (Routine); Ordered 08/29/21 Ordered By: Caesar Gutierrez Diet: advance to usual diet Activity on Discharge: As tolerated Stand Alone Forms: Patient Portal Discharge page Care Plan Goals: Improved shortness of breath Health Concerns: CHF Plan of Treatment: Diuresis; follow-up with Cardiology Assessment: Improved
--- NOTE | 2021-08-29 14:04 | MHC.CM.PN ---
left messagre for ,joby at [facility] to notify of pts dc [phone]
== END 2021-08-29 14:18 | disposition home health service (06) | DRG 291 ==
LOC: HO.ED 15:08 → HO.EDOVER 15:28 → HO.IMC 16:43
PROVIDERS: Physician Assistant; Admitting Provider Nurse Practitioner Acute Care; Emergency Provider Internal Medicine; PCP Family Medicine; Visit Provider Hospitalist
DX: I13.0 Hypertensive heart and chronic kidney disease with heart failure and stage 1 through stage 4 chronic kidney disease, or unspecified chronic kidney disease (principal); I50.33 Acute on chronic diastolic (congestive) heart failure; N17.9 Acute kidney failure, unspecified; Z95.811 Presence of heart assist device; I25.10 Atherosclerotic heart disease of native coronary artery without angina pectoris; I48.0 Paroxysmal atrial fibrillation; E11.22 Type 2 diabetes mellitus with diabetic chronic kidney disease; R31.9 Hematuria, unspecified; E87.6 Hypokalemia; C61 Malignant neoplasm of prostate; E66.9 Obesity, unspecified; N18.30 Chronic kidney disease, stage 3 unspecified; Z68.28 Body mass index [BMI] 28.0-28.9, adult; Z20.822 Contact with and (suspected) exposure to COVID-19; Z87.891 Personal history of nicotine dependence; Z79.4 Long term (current) use of insulin; Z79.01 Long term (current) use of anticoagulants; Z79.899 Other long term (current) drug therapy
CPT/HCPCS: 36415; 71046; 78306; 80048; 80053; 80076; 81001; 82947; 83735; 83880; 84484; 85025; 85027; 85379; 87635; 93005; 96374; 99285; 99291; A9503; J1940; J2405

== ENCOUNTER 2021-09-02 21:38 | Inpatient (IN) | payer MEDICARE, SELFPAY ==
--- NOTE | ~2021-09-02 | XR_ITS ---
EXAMINATION: XR CHEST CLINICAL INFORMATION: Shortness breath COMPARISON: 08/23/2021 TECHNIQUE: Frontal view of the chest was obtained. FINDINGS: CardioMEMS device redemonstrated within a left lower lobe pulmonary artery. There is pulmonary venous congestion without overt edema. No focal consolidation. Normal heart size. No pleural effusion or pneumothorax. Aorta is atherosclerotic. No acute or suspicious osseous abnormalities. XR/XR chest 1V IMPRESSION: Pulmonary venous congestion without overt edema.
--- NOTE | ~2021-09-02 | NM_ITS ---
Myocardial perfusion study Indication: NSTEMI Technique: The patient was brought in for a Lexiscan perfusion study on 09/05/2021. Patient performed low-level exercise and was injected 0.4 mg of Lexiscan intravenously. Within a minute of injection, 25 mCi of sestamibi was given intravenously. Images were obtained using the SPECT gamma camera interlaced with the gating device. Images were obtained in supine position. Resting perfusion study was performed on 09/04/2021. Patient was administered 25 mCi of sestamibi intravenously at rest. Images were then obtained in supine position. Images obtained with and without CT attenuation. Total DLP 102 mGy-cm. Images were processed with the software and compared side to side in short axis, horizontal long axis and vertical long axis views. Findings: The stress perfusion study showed nonattenuated images show severely reduced uptake in the inferoapical and moderately reduced uptake in the mid and basal inferior as well as mildly reduced uptake in the lateral and inferolateral wall of the LV myocardium. The attenuation corrected images show normalized uptake in the inferior wall, could represent over correction. The gated study shows reduced LV systolic function with calculated LVEF of 36%. LV cavity is mildly to moderately dilated size. The gated study shows diffusely and mildly reduced wall thickening and contraction of segments. Resting study shows nonattenuated images show normal uptake in the apical inferolateral and mid inferolateral as well as lateral wall of the LV myocardium. Is also improved uptake in the inferoapical and mid and basal inferior wall of the LV myocardium.. Gating at rest reveals diffuse wall motion abnormality with ejection fraction at 24%. The findings are consistent with mild intensity ischemia of the lateral, apical and mid inferolateral as well as basal and mid inferior wall of the LV myocardium with possibility of mixed infarction and fixed inferior myocardium.. NM/NM maia perf SPECT rest & str Impression: 1. Myocardial perfusion imaging study shows mild intensity ischemia of the lateral, mid and apical inferolateral basal and mid inferior wall with mixed infarction of the inferior 2. Gated LVEF is 36% with stress and 24% with rest 3. Transient ischemic dilatation not present EKG is nondiagnostic for ischemia
[2021-09-02 22:35] VITALS: BP 112/51; PULSE 66; RESP 18; TEMP 36.7; O2SAT 100; BMI 27.4
--- NOTE | 2021-09-02 23:35 | ECG_ITS ---
Test Reason : NUMBNESS Blood Pressure : / mmHG Vent. Rate : 066 BPM Atrial Rate : 357 BPM P-R Int : 000 ms QRS Dur : 110 ms QT Int : 404 ms P-R-T Axes : 000 -68 115 degrees QTc Int : 423 ms Atrial fibrillation Intra-ventricular conduction delay Left axis deviation Low voltage QRS Pulmonary disease pattern Nonspecific T wave abnormality Abnormal ECG When compared with ECG of 28-AUG-2021 08:17, Atrial fibrillation has replaced Sinus rhythm QT has shortened Referred By: Sara Bazzi Electronically Signed By:SARAH HORTON MD
[2021-09-03] VITALS (11 sets, daily range): BP systolic 100–126; BP diastolic 58–79; PULSE 71–78; RESP 14–23; TEMP 36.6–37; O2SAT 98–100
--- NOTE | 2021-09-03 | CA_ITS ---
Acquisition Time: 2021-09-05 08:27:14 Total Exercise Time: 00:02:00 Test Indications: Dyspnea Medications: SEE EMAR Protocol: LEXISCAN Max HR: 082 BPM 56% of Pred: 146 BPM Max BP: 116/070 mmHG Max Work Load: 1.0 METS Pharmacological stress test with Lexiscan injection, while sitting and moving his feet, without anginal symptoms, without arrythmia, with normotensive response to injection, with nondiagnostic EKG for ischemia. Nuclear images pending. Test reviewed with Dr Richardson Referred By: Eric Richardson Overread By: NATE MARES
--- NOTE | 2021-09-03 00:11 | PC.NURSE ---
Patient line and lab'd, covid swabbed and PA assessment complete. Patient awaiting results and further testing. Call bridges within reach
[2021-09-03 00:15] LABS: Basophils Percent Auto 0.4 % (0-2); Eosinophils Absolute Auto 0.1 X10*3/uL (0.0-0.4); Eosinophils Percent Auto 1.2 % (0-4); Hematocrit 36.8 % (42-52); Hemoglobin 11.8 g/dl (14.0-18.0); Imm Gran Abs Auto 0.02 X10*3/uL (0.00-0.03); Imm Gran Pct Auto 0.2 % (0.0-0.4); Lymphocytes Absolute Auto 1.2 X10*3/uL (1.2-4.9); Lymphocytes Percent Auto 11.5 % (20-40); MANUAL DIFF FLAG SCAN; Mean Corpuscular HGB Conc 32.1 g/dl (31.0-36.0); Mean Corpuscular Hemoglobin 27.6 pg (27.0-33.0); Mean Platelet Volume 10.8 fL (9.4-12.4); Monocytes Absolute Auto 1.7 X10*3/uL (0.1-1.2); Monocytes Percent Auto 16.4 % (2-11); Neutrophils Absolute Auto 7.1 X10*3/uL (2.0-8.3); Neutrophils Percent Auto 70.3 % (45-73); Platelet Count 281 X10*3/uL (160-400); Red Blood Count 4.28 X10*6/uL (4.60-5.80); Red Cell Distribution Width 16.6 % (11.0-16.0); SCAN SMEAR FLAG 1; White Blood Count 10.2 X10*3/uL (4.8-10.8)
[2021-09-03 00:31] LABS: Alanine Aminotransferase 41 U/L (0-40); Alkaline Phosphatase 90 U/L (39-117); Anion Gap 15 (12-20); Aspartate Amino Transferase 31 U/L (5-37); Bilirubin Direct 0.6 mg/dL (0.0-0.5); Bilirubin Total 0.9 mg/dL (0.0-1.0); Blood Urea Nitrogen 75 mg/dL (9-16); Calcium 9.5 mg/dL (8.4-10.2); Carbon Dioxide 34 mmol/L (22-29); Chloride 91 mmol/L (96-108); Creatinine Clr Calc Pharmacy 18.9; Estimated Glomerular Filt Rate 20; Glucose Random 328 mg/dL (60-115); Magnesium 2.2 mg/dL (1.6-2.6); Potassium 3.2 mmol/L (3.3-5.1); Sodium 137 mmol/L (135-145); Total Protein 7.1 g/dL (6.5-8.0)
[2021-09-03 00:47] LABS: B Type Natriuretic Peptide 1363 pg/mL (<100); Troponin-I High Sensitivity 1782.2 ng/L (<3.5-35.0)
[2021-09-03 00:48] LABS: COVID-19 Test Negative (Negative); IDNOW Serial# 9DD0AD1C
--- NOTE | 2021-09-03 00:55 | ED_ITS ---
HPI - General Adult General Chief complaint: Extremity Problem <GOLDIE Pope - Last Filed: 09/03/21 01:23> Stated complaint: arm pain <GOLDIE Pope - Last Filed: 09/03/21 01:23> Time Seen by Provider: 09/02/21 23:35 <GOLDIE Pope - Last Filed: 09/03/21 01:23> Source: patient <GOLDIE Pope - Last Filed: 09/03/21 01:23> History of Present Illness HPI narrative: 76 yo male pmhx significant for CHF with CardioMEMS HF system, hx PAF on Eliquis, NSVT, SRINIVASA, HTN, CKD, DM on insulin, CAD presents to the emergency department?complaining of left arm pain x3 days with associated hand par esthesias. Admits pain is intermittent. Does report intermittent SOB. Denies CP. Denies nausea, vomiting, headache, lightheadedness, dizziness, LE edema, calf pain, recent travel Denies missing any doses of his Eliquis <GOLDIE Pope - Last Filed: 09/03/21 01:23> Related Data Home medications: Home Medications Medication Instructions Recorded Confirmed blood sugar diagnostic #10 ea 05/13/21 09/03/21 amiodarone 200 mg tablet 200 mg PO DAILY 08/23/21 09/03/21 apixaban 5 mg tablet (Eliquis) 5 mg PO BID 08/23/21 09/03/21 atorvastatin 40 mg tablet 40 mg PO QPM 08/23/21 09/03/21 budesonide 90 mcg/actuation breath 2 puff INHALATION BID 08/23/21 09/03/21 activated powder inhaler (Pulmicort Flexhaler) cholecalciferol (vitamin D3) 50 50 mcg PO QNOON 08/23/21 09/03/21 mcg (2,000 unit) capsule (Vitamin D3) dulaglutide 1.5 mg/0.5 mL 1.5 mg SUBCUT QWEEK 08/23/21 09/03/21 subcutaneous pen injector (Trulic[facility] [place]) omeprazole 20 mg capsule,delayed 20 mg PO DAILY 08/23/21 09/03/21 release furosemide 40 mg tablet 2 tab PO BID 09/03/21 09/03/21 hydralazine 25 mg tablet 1 tab PO TID 09/03/21 09/03/21 insulin lispro 100 unit/mL 18 - 22 unit SUBCUT TID 09/03/21 09/03/21 subcutaneous pen (Humalog KwikPen (U-100) Insulin) lancets 33 gauge (TRUEplus Lancets) 09/03/21 09/03/21 metolazone 2.5 mg tablet 1 tab PO 3XW 09/03/21 09/03/21 metoprolol succinate 25 mg 0.5 tab PO DAILY 09/03/21 09/03/21 tablet,extended release 24 hr pen needle, diabetic 31 gauge x 09/03/21 09/03/21 5/16 (UltiCare Pen Needle) potassium chloride 20 mEq 2 tab PO DAILY 09/03/21 09/03/21 tablet,extended release(part/cryst) Previous Rx's Medication Instructions Recorded bicalutamide 50 mg tablet 50 mg PO DAILY #30 tab 08/29/21 torsemide 20 mg tablet 40 mg PO BID #120 tab 08/29/21 <GOLDIE Pope - Last Filed: 09/03/21 01:23> Allergies/adverse reactions: Allergies Allergy/AdvReac Type Severity Reaction Status Date / Time No Known Allergies Allergy Verified 08/13/21 12:44 [No Known Allergies*] <GOLDIE Pope - Last Filed: 09/03/21 01:23> Review of Systems Review of Systems: Constitutional: No Fever, No Chills, No Fatigue, No Malaise ENT/Mouth: No Ear Pain, No Nasal Congestion, No Sinus Pain, No Hoarseness, No sore throat Eyes: No Eye Pain, No Swelling, No Redness, No Vision Changes Cardiovascular: No Chest Pain, + intermittent SOB, No Dyspnea on Exertion, No Orthopnea, No Edema, No Palpitations Respiratory: No Cough, No Dyspnea Gastrointestinal: No Nausea, No Vomiting, No Diarrhea, No Constipation, No Abdominal pain Genitourinary: No Dysuria, No Urinary Frequency, No Hematuria,No Flank Pain Musculoskeletal: + joint pain, No Myalgias, No Joint Swelling Skin: No Skin Lesions, No rash Neuro: No Weakness, No Numbness, + Paresthesias, No Loss of Consciousness, No Dizziness, No Headache <GOLDIE Pope - Last Filed: 09/03/21 01:23> Yes all other systems are reviewed and are negative <GOLDIE Pope - Last Filed: 09/03/21 01:23> [facility] Past Medical History Attestation statement: The following information was validated with the patient. <GOLDIE Pope - Last Filed: 09/03/21 01:23> Medical History: Medical History (Updated 09/03/21 @ 01:14 by GOLDIE Pope) CAD (coronary artery disease) Cardiomyopathy CKD (chronic kidney disease) stage 3, GFR 30-59 ml/min COVID-19 vaccine series completed Diabetic polyneuropathy associated with type 2 diabetes mellitus Dyslipidemia Essential hypertension Heart failure with preserved ejection fraction History of cardioversion History of COVID-19 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 Obesity (BMI 30-39.9) SRINIVASA (obstructive sleep apnea) Presence of CardioMEMS HF system <GOLDIE Pope - Last Filed: 09/03/21 01:23> Surgical History: Surgical History Hx of cardiac catheterization Hx of colonoscopy <GOLDIE Pope - Last Filed: 09/03/21 01:23> Family History Family History: Family History Father Heart disease Diabetes mellitus Mother Diabetes mellitus <GOLDIE Pope - Last Filed: 09/03/21 01:23> Social History Social History: Social History Household Members: Spouse Housing: House Are you a primary childcare teacher to a significant other at home: No Do you presently have visiting nurse or other home services: No Alcohol intake: never Patient Tobacco Use Status: Former Tobacco user Quit Date: 1979 Tobacco use type: Cigarette Years Smoked: 33 e-Cigarette/Vaping Use: Never Used Use of substances other than those prescribed or required for medical reasons: No Advance Directives: Yes Advance Directives on File: Yes Advance Directives Date on File: 08/23/21 service: No Current occupational status: unemployed and retired <GOLDIE Pope - Last Filed: 09/03/21 01:23> Physical Exam Vital Signs: Vital Signs: Last Vital Signs Temp 98.6 F 09/03/21 00:00 Pulse 71 09/03/21 00:00 Resp 16 09/03/21 00:00 BP 126/79 09/03/21 00:00 Pulse Ox 100 09/03/21 00:00 Body Mass Index 27.4 <GOLDIE Pope - Last Filed: 09/03/21 01:23> Vital Signs: Last Vital Signs Temp 98.6 F 09/03/21 00:00 Pulse 71 09/03/21 00:00 Resp 16 09/03/21 00:00 BP 126/79 09/03/21 00:00 Pulse Ox 100 09/03/21 00:00 Body Mass Index 27.4 <Ty Baer MD - Last Filed: 09/03/21 03:38> Const: General: cooperative, healthy appearing and no acute distress <GOLDIE Pope - Last Filed: 09/03/21 01:23> Orientation/consciousness: patient oriented x3 <GOLDIE Pope - Last Filed: 09/03/21 01:23> Limitations: no limitations <GOLDIE Pope - Last Filed: 09/03/21 01:23> HENMT: Head: Yes normal to inspection <GOLDIE Pope - Last Filed: 01:23> Ears: hearing grossly normal bilaterally <GOLDIE Pope - Last Filed: 09/03/21 01:23> General nose exam: Normal external nose present <GOLDIE Pope - Last Filed: 09/03/21 01:23> Face and sinus: Yes normal facial exam <GOLDIE Pope - Last Filed: 09/03/21 01:23> Eyes: General: appearance normal, both eyes and all related structures <GOLDIE Dunlap ra - Last Filed: 09/03/21 01:23> EOM: EOMs intact bilaterally <GOLDIE Pope - Last Filed: 09/03/21 01:23> Neck: Neck: Yes normal visual inspection and Yes no meningeal signs <GOLDIE Pope - Last Filed: 09/03/21 01:23> Resp: Effort & Inspection: normal respiratory effort <GOLDIE Pope - Last Filed: 09/03/21 01:23> Auscultation: clear to auscultation bilaterally, no crackles and no wheezes <GOLDIE Pope - Last Filed: 09/03/21:23> Cardio: Rate: regular rate <GOLDIE Pope - Last Filed: 09/03/21:23> Heart sounds: S1 normal heart sound present and S2 normal heart sound present <Sara Bazzi FL - Last Filed: 09/03/21:23> GI: Inspection: Yes normal to inspection <Sara Bazzi FL - Last Filed: 09/03/21:23> Palpation (GI): Soft to palpation, nontender, no guarding and not rigid <Sara Bazzi FL - Last Filed: 09/03/21:23> Skin: Rashes: no rashes <Sara Bazzi FL - Last Filed: 09/03/21:23> Wounds: no wounds <Sara Bazzi FL - Last Filed: 09/03/21:23> Neuro: General: patient oriented x3 and no meningeal signs <GOLDIE Pope - Last Filed: 09/03/21:23> Gait exam (Neuro): Normal gait present <Sara Bazzi FL - Last Filed: 09/03/21:23> Extrem: Other: 1+ bilateral LE edema <Sara Bazzi FL - Last Filed: 09/03/21:23> General: Yes normal to inspection <Sara Bazzi FL - Last Filed: 09/03/21:23> Course Course Course Narrative: -no leukocytosis. H&H stable. -0057--potassium low at 3.2 p.o. repletion ordered. Acute on chronic MORTEZA with BUN 75, creatinine 3.0. Troponin elevated at 1782, Elevated in the past > will obtain 3 hour repeat. patient still denies active chest pain > spoke to Cardiology, Dr. Rcihardson recommended admission and serial troponins. BNP acute on chronically elevated at 1363 -0125--ED care transferred to Dr. Baer pending repeat troponin, if not substantially elevated plan is for admission, hospitalist aware. If delta patient will need transfer <GOLDIE Pope - Last Filed: 09/03/21:23> -no leukocytosis. H&H stable. -0057--potassium low at 3.2 p.o. repletion ordered. Acute on chronic MORTEZA with BUN 75, creatinine 3.0. Troponin elevated at 1782, Elevated in the past > will obtain 3 hour repeat. patient still denies active chest pain > spoke to Cardiology, Dr. Richardson recommended admission and serial troponins. BNP acute on chronically elevated at 1363 -0125--ED care transferred to Dr. Baer pending repeat troponin, if not substantially elevated plan is for admission, hospitalist aware. If delta patient will need transfer 0335: The patient's repeat high sensitivity troponin I was 1569 which is improved. I did inform the covering hospitalist of this result. The patient will be admitted to the hospital service. <Ty Baer MD - Last Filed: 09/03/21 03:38> Medical Decision Making MDM Narrative Medical decision making narrative: 76 yo male pmhx significant for CHF with CardioMETrovali HF system, hx PAF on Eliquis, NSVT, SRINIVASA, HTN, CKD, DM on insulin, CAD presents to the emergency department?complaining of left arm pain x3 days with associated hand paresthesias. On exam VSS, NAD, nontoxic appearing, CTA. Concern for ACS vs MSK pain. Rule out infectious/metabolic abnormalities and CHF. Unlikely PE plan: EKG, labs, CXR, COVID-19 testing,reassess <GOLDIE Pope - Last Filed: 09/03/21 01:23> Lab Data Result diagrams: : 09/03/21 00:00 09/03/21 00:00 <GOLDIE Pope - Last Filed: 09/03/21 01:23> Labs: Lab Results 09/03/21 09/03/21 09/03/21 Range/Units 00:00 00:00 00:00 WBC 10.2 (4.8-10.8) X10*3/uL RBC 4.28 L (4.60-5.80) X10*6/uL Hgb 11.8 L (14.0-18.0) g/dl Hct 36.8 L (42-52) % MCV 86.0 (80-98) fL MCH 27.6 (27.0-33.0) pg MCHC 32.1 (31.0-36.0) g/dl RDW 16.6 H (11.0-16.0) % Plt Count 281 D (160-400) X10*3/uL MPV 10.8 (9.4-12.4) fL Immature Gran % (Auto) 0.2 (0.0-0.4) % Neut % (Auto) 70.3 (45-73) % Lymph % (Auto) 11.5 L (20-40) % [place] % (Auto) 16.4 H (2-11) % Eos % (Auto) 1.2 (0-4) % Baso % (Auto) 0.4 (0-2) % Lymph # (Auto) 1.2 (1.2-4.9) X10*3/uL [place] # (Auto) 1.7 H (0.1-1.2) X10*3/uL Eos # (Auto) 0.1 (0.0-0.4) X10*3/uL Baso # (Auto) 0.0 (0.0-0.2) X10*3/uL Abs Immat Gran (auto) 0.02 (0.00-0.03) X10*3/uL Absolute Neuts (auto) 7.1 (2.0-8.3) X10*3/uL Absolute Nucleated RBC 0.000 (0.0-0.012) X10*3/uL Nucleated RBC % (auto) 0.0 (0.0-0.2) /100WBC Smear Tech's Comments VERIFIED Sodium 137 (135-145) mmol/L Potassium 3.2 L (3.3-5.1) mmol/L Chloride 91 L (96-108) mmol/L Carbon Dioxide 34 H (22-29) mmol/L Anion Gap 15 (12-20) BUN 75 H (9-16) mg/dL Creatinine 3.01 H (0.5-1.4) mg/dL Estim Creat Clear Calc 18.9 Estimated GFR 20 Random Glucose 328 H D (60-115) mg/dL Calcium 9.5 (8.4-10.2) mg/dL Magnesium 2.2 (1.6-2.6) mg/dL Total Bilirubin 0.9 (0.0-1.0) mg/dL Direct Bilirubin 0.6 H (0.0-0.5) mg/dL AST 31 (5-37) U/L ALT 41 H (0-40) U/L Alkaline Phosphatase 90 D (39-117) U/L Troponin I High Sens 1782.2 H* D (<3.5-35.0) ng/L B-Natriuretic Peptide 1363 H (<100) pg/mL Total Protein 7.1 D (6.5-8.0) g/dL Albumin 4.0 (3.5-5.0) g/dL COVID-19 (KATY) (Negative) COVID-19 Clin Com 09/03/21 09/03/21 Range/Units 00:00 02:59 WBC (4.8-10.8) X10*3/uL RBC (4.60-5.80) X10*6/uL Hgb (14.0-18.0) g/dl Hct (42-52) % MCV (80-98) fL MCH (27.0-33.0) pg MCHC (31.0-36.0) g/dl RDW (11.0-16.0) % Plt Count (160-400) X10*3/uL MPV (9.4-12.4) fL Immature Gran % (Auto) (0.0-0.4) % Neut % (Auto) (45-73) % Lymph % (Auto) (20-40) % [place] % (Auto) (2-11) % Eos % (Auto) (0-4) % Baso % (Auto) (0-2) % Lymph # (Auto) (1.2-4.9) X10*3/uL [place] # (Auto) (0.1-1.2) X10*3/uL Eos # (Auto) (0.0-0.4) X10*3/uL Baso # (Auto) (0.0-0.2) X10*3/uL Abs Immat Gran (auto) (0.00-0.03) X10*3/uL Absolute Neuts (auto) (2.0-8.3) X10*3/uL Absolute Nucleated RBC (0.0-0.012) X10*3/uL Nucleated RBC % (auto) (0.0-0.2) /100WBC Smear Tech's Comments Sodium (135-145) mmol/L Potassium (3.3-5.1) mmol/L Chloride (96-108) mmol/L Carbon Dioxide (22-29) mmol/L Anion Gap (12-20) BUN (9-16) mg/dL Creatinine (0.5-1.4) mg/dL Estim Creat Clear Calc Estimated GFR Random Glucose (60-115) mg/dL Calcium (8.4-10.2) mg/dL Magnesium (1.6-2.6) mg/dL Total Bilirubin (0.0-1.0) mg/dL Direct Bilirubin (0.0-0.5) mg/dL AST (5-37) U/L ALT (0-40) U/L Alkaline Phosphatase (39-117) U/L Troponin I High Sens 1569.0 H* (<3.5-35.0) ng/L B-Natriuretic Peptide (<100) pg/mL Total Protein (6.5-8.0) g/dL Albumin (3.5-5.0) g/dL COVID-19 (KATY) Negative (Negative) COVID-19 Clin Com See Note <GOLDIE Pope - Last Filed: 09/03/21 01:23> Lab Results 09/03/21 09/03/21 09/03/21 Range/Units 00:00 00:00 00:00 WBC 10.2 (4.8-10.8) X10*3/uL RBC 4.28 L (4.60-5.80) X10*6/uL Hgb 11.8 L (14.0-18.0) g/dl Hct 36.8 L (42-52) % MCV 86.0 (80-98) fL MCH 27.6 (27.0-33.0) pg MCHC 32.1 (31.0-36.0) g/dl RDW 16.6 H (11.0-16.0) % Plt Count 281 D (160-400) X10*3/uL MPV 10.8 (9.4-12.4) fL Immature Gran % (Auto) 0.2 (0.0-0.4) % Neut % (Auto) 70.3 (45-73) % Lymph % (Auto) 11.5 L (20-40) % [place] % (Auto) 16.4 H (2-11) % Eos % (Auto) 1.2 (0-4) % Baso % (Auto) 0.4 (0-2) % Lymph # (Auto) 1.2 (1.2-4.9) X10*3/uL [place] # (Auto) 1.7 H (0.1-1.2) X10*3/uL Eos # (Auto) 0.1 (0.0-0.4) X10*3/uL Baso # (Auto) 0.0 (0.0-0.2) X10*3/uL Abs Immat Gran (auto) 0.02 (0.00-0.03) X10*3/uL Absolute Neuts (auto) 7.1 (2.0-8.3) X10*3/uL Absolute Nucleated RBC 0.000 (0.0-0.012) X10*3/uL Nucleated RBC % (auto) 0.0 (0.0-0.2) /100WBC Smear Tech's Comments VERIFIED Sodium 137 (135-145) mmol/L Potassium 3.2 L (3.3-5.1) mmol/L Chloride 91 L (96-108) mmol/L Carbon Dioxide 34 H (22-29) mmol/L Anion Gap 15 (12-20) BUN 75 H (9-16) mg/dL Creatinine 3.01 H (0.5-1.4) mg/dL Estim Creat Clear Calc 18.9 Estimated GFR 20 Random Glucose 328 H D (60-115) mg/dL Calcium 9.5 (8.4-10.2) mg/dL Magnesium 2.2 (1.6-2.6) mg/dL Total Bilirubin 0.9 (0.0-1.0) mg/dL Direct Bilirubin 0.6 H (0.0-0.5) mg/dL AST 31 (5-37) U/L ALT 41 H (0-40) U/L Alkaline Phosphatase 90 D (39-117) U/L Troponin I High Sens 1782.2 H* D (<3.5-35.0) ng/L B-Natriuretic Peptide 1363 H (<100) pg/mL Total Protein 7.1 D (6.5-8.0) g/dL Albumin 4.0 (3.5-5.0) g/dL COVID-19 (KATY) (Negative) COVID-19 Clin Com 09/03/21 09/03/21 Range/Units 00:00 02:59 WBC (4.8-10.8) X10*3/uL RBC (4.60-5.80) X10*6/uL Hgb (14.0-18.0) g/dl Hct (42-52) % MCV (80-98) fL MCH (27.0-33.0) pg MCHC (31.0-36.0) g/dl RDW (11.0-16.0) % Plt Count (160-400) X10*3/uL MPV (9.4-12.4) fL Immature Gran % (Auto) (0.0-0.4) % Neut % (Auto) (45-73) % Lymph % (Auto) (20-40) % [place] % (Auto) (2-11) % Eos % (Auto) (0-4) % Baso % (Auto) (0-2) % Lymph # (Auto) (1.2-4.9) X10*3/uL [place] # (Auto) (0.1-1.2) X10*3/uL Eos # (Auto) (0.0-0.4) X10*3/uL Baso # (Auto) (0.0-0.2) X10*3/uL Abs Immat Gran (auto) (0.00-0.03) X10*3/uL Absolute Neuts (auto) (2.0-8.3) X10*3/uL Absolute Nucleated RBC (0.0-0.012) X10*3/uL Nucleated RBC % (auto) (0.0-0.2) /100WBC Smear Tech's Comments Sodium (135-145) mmol/L Potassium (3.3-5.1) mmol/L Chloride (96-108) mmol/L Carbon Dioxide (22-29) mmol/L Anion Gap (12-20) BUN (9-16) mg/dL Creatinine (0.5-1.4) mg/dL Estim Creat Clear Calc Estimated GFR Random Glucose (60-115) mg/dL Calcium (8.4-10.2) mg/dL Magnesium (1.6-2.6) mg/dL Total Bilirubin (0.0-1.0) mg/dL Direct Bilirubin (0.0-0.5) mg/dL AST (5-37) U/L ALT (0-40) U/L Alkaline Phosphatase (39-117) U/L Troponin I High Sens 1569.0 H* (<3.5-35.0) ng/L B-Natriuretic Peptide (<100) pg/mL Total Protein (6.5-8.0) g/dL Albumin (3.5-5.0) g/dL COVID-19 (KATY) Negative (Negative) COVID-19 Clin Com See Note <Ty Baer MD - Last Filed: 09/03/21 03:38> ECG Data Attestation: I personally reviewed and interpreted this ECG as follows: <GOLDIE Pope - Last Filed: 09/03/21 01:23> Prior ECG tracings: available for review <GOLDIE Pope - Last Filed: 09/03/21 01:23> Interpretation: EKG AFib at a rate of 66 QTC 423 Nonspecific T-wave abnormality. No STEMI <GOLDIE Pope - Last Filed: 09/03/21 01:23>
[2021-09-03 00:57] LABS: SLIDE REVIEW VERIFIED
[2021-09-03] MEDS: Aspirin Enteric Coated 81 MG TABLET.DR 162 MG PO (01:47)
[2021-09-03] MEDS: Potassium Chloride ER 20 MEQ TAB.ER.PRT 40 MEQ PO (01:47)
[2021-09-03] MEDS: diphenhydrAMINE HCL 25 MG TABLET PO (04:19)
--- NOTE | 2021-09-03 05:08 | P.HPHOSP_ITS ---
History of Present Illness Date of Service: 09/03/21 Chief Complaint: Left arm pain 76-year-old male with a past medical history of hypertension, hyperlipidemia, diabetes, CAD, CHF, CKD, diabetic polyneuropathy, paroxysmal AFib on Eliquis, history of NSVT, history of prostate cancer, gout presented to the hospital with a chief complaint of left arm pain. Patient reports that over the past couple days he has been having tingling in his bilateral hands and today he noted to have intermittent episodes of palpitat ions, left thumb achy pain; reports mild lightheadedness. Denies any chest pain per se. Denies any fever chills cough. Reports that he has been complaint with his home medications. Denies any GI or symptoms. Review of all other systems is negative except mentioned above ER course: Per ER team patient's EKG was nonischemic, noted to have AFib; troponins elevated more than prior values; follow-up troponin trended down; discussed with Dr. Richardson from Cardiology; admitted to the hospital for further management/cardiology evaluation the morning. [facility] Medical History (Updated 09/03/21 @ 01:14 by GOLDIE Pope) CAD (coronary artery disease) Cardiomyopathy CKD (chronic kidney disease) stage 3, GFR 30-59 ml/min COVID-19 vaccine series completed Diabetic polyneuropathy associated with type 2 diabetes mellitus Dyslipidemia Essential hypertension Heart failure with preserved ejection fraction History of cardioversion History of COVID-19 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 Obesity (BMI 30-39.9) SRINIVASA (obstructive sleep apnea) Presence of CardioMEMS HF system Family History Father Heart disease Diabetes mellitus Mother Diabetes mellitus Pertinent family history: As above Surgical History Hx of cardiac catheterization Hx of colonoscopy Social History Household Members: Spouse Housing: House Are you a primary care administrative tech to a significant other at home: No Do you presently have visiting nurse or other home services: No Alcohol intake: never Patient Tobacco Use Status: Former Tobacco user Quit Date: 1979 Tobacco use type: Cigarette Years Smoked: 33 e-Cigarette/Vaping Use: Never Used Use of substances other than those prescribed or required for medical reasons: No Advance Directives: Yes Advance Directives on File: Yes Advance Directives Date on File: 08/23/21 service: No Current occupational status: unemployed and retired Meds Allergies Allergy/AdvReac Type Severity Reaction Status Date / Time No Known Allergies Allergy Verified 08/13/21 12:44 [No Known Allergies*] Active Medications: Current Medications Acetaminophen (Acetaminophen 325 Mg Tablet) 650 mg PO Q6H PRN PRN Reason: Pain, Mild (Pain Scale 1-3) Dextrose (Dextrose 50 % 25 Gm/50 Ml Vial) 25 gm IVPUSH Q15M PRN; Protocol PRN Reason: per Hypoglycemia Standing Ord. Glucose (Glucose Gel 15 Gm Gel..Gram.) 15 gm PO Q15M PRN; Protocol PRN Reason: per Hypoglycemia Standing Ord. Insulin Human Lispro (Insulin Lispro 100 Unit/Ml 3 Ml Vial) 0 [facility]; Protocol Melatonin (Melatonin 3 Mg Tablet) 6 mg PO BEDTIME PRN PRN Reason: Insomnia Pharmacy Consult (Consult Rx Perform Med Rec) 1 each MISCELLANE ONCE PRN PRN Reason: Consult order Sodium Chloride (0.9 % Sodium Chloride Flush 3 Ml Syringe) [address] [facility] Home Medications Medication Instructions Recorded Confirmed Last Taken Type blood sugar diagnostic #10 ea 05/13/21 09/03/21 Unknown History amiodarone 200 mg tablet 200 mg PO DAILY 08/23/21 09/03/21 Unknown History apixaban 5 mg tablet (Eliquis) 5 mg PO BID 08/23/21 09/03/21 Unknown History atorvastatin 40 mg tablet 40 mg PO QPM 08/23/21 09/03/21 Unknown History budesonide 90 mcg/actuation breath 2 puff INHALATION BID 08/23/21 09/03/21 Unknown History activated powder inhaler (Pulmicort Flexhaler) cholecalciferol (vitamin D3) 50 50 mcg PO QNOON 08/23/21 09/03/21 Unknown History mcg (2,000 unit) capsule (Vitamin D3) dulaglutide 1.5 mg/0.5 mL 1.5 mg SUBCUT QWEEK 08/23/21 09/03/21 Unknown History [facility] omeprazole 20 mg capsule,delayed 20 mg PO DAILY 08/23/21 09/03/21 Unknown History release furosemide 40 mg tablet 2 tab PO BID 09/03/21 09/03/21 Unknown History hydralazine 25 mg tablet 1 tab PO TID 09/03/21 09/03/21 Unknown History insulin lispro 100 unit/mL 18 - 22 unit SUBCUT TID 09/03/21 09/03/21 Unknown History subcutaneous pen (Humalog KwikPen (U-100) Insulin) lancets 33 gauge (TRUEplus Lancets) 09/03/21 09/03/21 Unknown History metolazone 2.5 mg tablet 1 tab PO 3XW 09/03/21 09/03/21 Unknown History metoprolol succinate 25 mg 0.5 tab PO DAILY 09/03/21 09/03/21 Unknown History tablet,extended release 24 hr pen needle, diabetic 31 gauge x 09/03/21 09/03/21 Unknown History 04/06 (UltiCare Pen Needle) potassium chloride 20 mEq 2 tab PO DAILY 09/03/21 09/03/21 Unknown History tablet,extended release(part/cryst) Physical Exam Vital Signs and Narrative: Vital Signs: Last Vital Signs Temp 98.6 F 09/03/21 00:00 Pulse 76 09/03/21 04:00 Resp 14 09/03/21 04:00 BP 100/58 L 09/03/21 04:00 Pulse Ox 99 09/03/21 04:00 Body Mass Index 27.4 Gen: Appears be in no acute distress HEENT: NCAT, Moist mucosa. Pulmonary: Vesicular breath sounds, fair air entry CVS: Normal S1-S2 Abdomen: BS+, Soft, Nontender Extremities: Warm well perfused Neuro: Alert and awake. Results Labs CBC and Chem 7: 09/03/21 00:00 09/03/21 00:00 Labs: Laboratory Results - last 24 hr 09/03/21 09/03/21 09/03/21 00:00 00:00 00:00 MCV 86.0 MCH 27.6 MCHC 32.1 RDW 16.6 H Plt Count 281 D MPV 10.8 Immature Gran % (Auto) 0.2 Neut % (Auto) 70.3 Lymph % (Auto) 11.5 L [place] % (Auto) 16.4 H Eos % (Auto) 1.2 Baso % (Auto) 0.4 Lymph # (Auto) 1.2 [place] # (Auto) 1.7 H Eos # (Auto) 0.1 Baso # (Auto) 0.0 Abs Immat Gran (auto) 0.02 Absolute Neuts (auto) 7.1 Absolute Nucleated RBC 0.000 Nucleated RBC % (auto) 0.0 Smear Tech's Comments VERIFIED Anion Gap 15 Estim Creat Clear Calc 18.9 Estimated GFR 20 Random Glucose 328 H D Calcium 9.5 Magnesium 2.2 Total Bilirubin 0.9 Direct Bilirubin 0.6 H AST 31 ALT 41 H Alkaline Phosphatase 90 D Troponin I High Sens 1782.2 H* D B-Natriuretic Peptide 1363 H Total Protein 7.1 D Albumin 4.0 COVID-19 (KATY) COVID-19 [place] Com 09/03/21 09/03/21 00:00 02:59 MCV MCH MCHC RDW Plt Count MPV Immature Gran % (Auto) Neut % (Auto) Lymph % (Auto) [place] % (Auto) Eos % (Auto) Baso % (Auto) Lymph # (Auto) [place] # (Auto) Eos # (Auto) Baso # (Auto) Abs Immat Gran (auto) Absolute Neuts (auto) Absolute Nucleated RBC Nucleated RBC % (auto) Smear Tech's Comments Anion Gap Estim Creat Clear Calc Estimated GFR Random Glucose Calcium Magnesium Total Bilirubin Direct Bilirubin AST ALT Alkaline Phosphatase Troponin I High Sens 1569.0 H* B-Natriuretic Peptide Total Protein Albumin COVID-19 (KATY) Negative COVID-19 Clin Com See Note Imaging Radiologist's Impressions: Impressions Chest X-Ray 09/03/21 00:00 IMPRESSION: Pulmonary venous congestion without overt edema. Assessment and Plan (1) Acute non-ST elevation myocardial infarction (NSTEMI): Status: Acute (2) Presence of CardioMEMS HF system: Status: Acute (3) Diabetes mellitus: Status: Acute (4) Chronic heart failure with reduced ejection fraction and diastolic dysfunction: Status: Acute (5) PAF (paroxysmal atrial fibrillation): Status: Acute 76-year-old male with a past medical history of hypertension, hyperlipidemia, diabetes, CAD, CHF, CKD, diabetic polyneuropathy, paroxysmal AFib on Eliquis, history of NSVT, history of prostate cancer, gout presented to the hospital with a chief complaint of left arm pain. Noted to have elevated troponins. Concern for NSTEMI. Admitted for further management. Left arm pain: Concern for NSTEMI. Patient is troponins 1782->1569. Cardiology was notified. Patient is already on Eliquis. Given aspirin in the ER. Currently symptoms improved. Monitor on telemetry Cycle cardiac enzymes Cardiology follow-up History of CKD: Baseline creatinine around 3. History of CHF: Not in fluid overload. Continue home diuretics. History of AFib: Rate controlled. Patient on Eliquis. History of diabetes: Patient on Trulicity at home. Insulin sliding scale for now. Follow fingerstick glucose and adjust as needed. For all other chronic conditions, home medications will be continued DVT prophylaxis: Patient on Eliquis Code status: Full code Quality Stroke Does the patient have a stroke diagnosis?: No VTE Prior VTE?: No VTE Risk Level:: Medical - moderate - high VTE Device Contraindication: N/A - Device Ordered VTE Drug Contraindication: Treatment Not Indicated
--- NOTE | 2021-09-03 07:33 | PHA.MEDREC ---
Pharmacy Consult ? Medication Reconciliation Pharmacy has completed the medication reconciliation. Thanks Brad
[2021-09-03 08:59] LABS: Glucose, Whole Blood 170 mg/dL (60-115)
--- NOTE | 2021-09-03 10:41 | PM.CNCAR ---
History of Present Illness History of Present Illness Date of Service: 09/03/21 Requesting physician: Chen Rob Consult reason: congestive heart failure and troponin elevation Chief complaint: NSTEMI Narrative: I was requested to see Jonathan in cardiology consultation today because of elevated troponins. He came to the hospital with 2 days onset symptoms of left arm discomfort which is on and off. Not clearly related to any exertion. He also notices numbness in his left hand as well as right hand. No discomfort in his right head. Denies any chest discomfort. He came into the hospital with EKG was poor quality but shows sinus rhythm with PACs and no acute ST T wave changes. However his troponin was elevated. Subsequent troponin is down trending but still elevated. He has prior history which is very complicated. Difficult to manage congestive heart failure and volume status and therefore underwent CardioMEMS device and is currently on torsemide 40 mg b.i.d.. Also has significant chronic kidney disease with creatinine in the threes but has remained stabilized on torsemide 40 mg b.i.d. with adequate pulmonary artery diastolic pressure. He says he still gets shortness of breath occasionally but is a very poor historian. Denies any palpitations. Denies any lightheadedness, syncope. Monitor currently shows sinus rhythm. He has been taking his oral anticoagulation all medications listed in the chart as per him. Detailed history is difficult to obtain from him Review of Systems Constitutional: Constitutional: Reports no additional constitutional complaints Eyes: Eyes: Reports no additional eye complaints Cardiovascular: Cardiovascular: Denies rapid heart rate, Denies lightheadedness, Denies Loss of Consciousness, Denies palpitations, Reports orthopnea (Occasionally) and Reports other (Left arm discomfort with numbness) Respiratory: Respiratory: Reports no additional respiratory complaints Gastrointestinal: Gastrointestinal: Reports no additional gastrointestinal complaints Musculoskeletal: Musculoskeletal: Reports no additional musculoskeletal complaints Integumentary/Breasts: Skin/Breast: Reports system reviewed and no additional complaints, except as docu Neurologic: Reports system reviewed and no additional complaints, except as documented Psychiatric: Psychiatric: Reports no additional psychiatric complaints Endocrine: Endocrine: Denies palpitations Hematologic/Lymphatic: Hematologic/Lymphatic: Reports no additional hematologic/lymphatic complaints PMFSH Past Medical History Medical History CAD (coronary artery disease) Cardiomyopathy CKD (chronic kidney disease) stage 3, GFR 30-59 ml/min COVID-19 vaccine series completed Diabetic polyneuropathy associated with type 2 diabetes mellitus Dyslipidemia Essential hypertension Heart failure with preserved ejection fraction History of cardioversion History of COVID-19 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 Obesity (BMI 30-39.9) SRINIVASA (obstructive sleep apnea) Presence of CardioMEMS HF system Family History Family History Father Heart disease Diabetes mellitus Mother Diabetes mellitus Surgical History Surgical History Hx of cardiac catheterization Hx of colonoscopy Social History Social History Household Members: Spouse Housing: House Are you a primary health care / medical job titles to a significant other at home: No Do you presently have visiting nurse or other home services: No Alcohol intake: never Patient Tobacco Use Status: Former Tobacco user Quit Date: 1979 Tobacco use type: Cigarette Years Smoked: 33 e-Cigarette/Vaping Use: Never Used Use of substances other than those prescribed or required for medical reasons: No Advance Directives: Yes Advance Directives on File: Yes Advance Directives Date on File: 08/23/21 service: No Current occupational status: unemployed and retired Meds Allergies Allergy/AdvReac Type Severity Reaction Status Date / Time No Known Allergies Allergy Verified 09/03/21 08:08 [No Known Allergies*] Active Medications: Current Medications Acetaminophen (Acetaminophen 325 Mg Tablet) 650 mg PO Q6H PRN PRN Reason: Pain, Mild (Pain Scale 1-3) Amiodarone HCl (Amiodarone Hcl 200 Mg Tablet) 200 mg PO DAILY [facility] Apixaban (Apixaban 5 Mg Tablet) 5 mg PO BID [facility] Atorvastatin Calcium (Atorvastatin Calcium 40 Mg Tablet) 40 mg PO BEDTIME KIM Bicalutamide (Bicalutamide 50 Mg Tablet) 50 mg PO DAILY [facility] Dextrose (Dextrose 50 % 25 Gm/50 Ml Vial) 25 gm IVPUSH Q15M PRN; Protocol PRN Reason: per Hypoglycemia Standing Ord. Glucose (Glucose Gel 15 Gm Gel..Gram.) 15 gm PO Q15M PRN; Protocol PRN Reason: per Hypoglycemia Standing Ord. Hydralazine HCl (Hydralazine Hcl 25 Mg Tablet) 25 mg PO TID KIM; Protocol Insulin Human Lispro (Insulin Lispro 100 Unit/Ml 3 Ml Vial) 0 unit SUBCUT QIDACHS [facility]; Protocol Melatonin (Melatonin 3 Mg Tablet) 6 mg PO BEDTIME PRN PRN Reason: Insomnia Metoprolol Succinate (Metoprolol Succinate Er 12.5 Mg Halftab.Er.24h) 12.5 mg PO DAILY [facility]; Protocol Omeprazole (Omeprazole 20 Mg Capsule.Dr) 20 mg PO DAILY [facility] Pharmacy Consult (Consult Rx Perform Med Rec) 1 each MISCELLANE ONCE PRN PRN Reason: Consult order Sodium Chloride (0.9 % Sodium Chloride Flush 3 Ml Syringe) 3 ml IVFLUSH QSHIFT [facility] Torsemide (Torsemide 20 Mg Tablet) 40 mg PO BID@0830,1630 [facility]; Protocol Vitamin D (Cholecalciferol (Vitamin D3) 25 Mcg Tablet) 50 mcg PO DAILY@1200 [facility] Home Medications Medication Instructions Recorded Confirmed Last Taken Type blood sugar diagnostic #10 ea 05/13/21 09/03/21 Unknown History amiodarone 200 mg tablet 200 mg PO DAILY 08/23/21 09/03/21 Unknown History apixaban 5 mg tablet (Eliquis) 5 mg PO BID 08/23/21 09/03/21 Unknown History atorvastatin 40 mg tablet 40 mg PO QPM 08/23/21 09/03/21 Unknown History budesonide 90 mcg/actuation breath 2 puff INHALATION BID 08/23/21 09/03/21 Unknown History activated powder inhaler (Pulmicort Flexhaler) cholecalciferol (vitamin D3) 50 50 mcg PO QNOON 08/23/21 09/03/21 Unknown History mcg (2,000 unit) capsule (Vitamin D3) dulaglutide 1.5 mg/0.5 mL 1.5 mg SUBCUT QWEEK 08/23/21 09/03/21 Unknown History subcutaneous pen injector ([facility] omeprazole 20 mg capsule,delayed 20 mg PO DAILY 08/23/21 09/03/21 Unknown History release docusate sodium 100 mg capsule 1 cap PO BID PRN 09/03/21 09/03/21 Unknown History hydralazine 25 mg tablet 1 tab PO TID 09/03/21 09/03/21 Unknown History insulin lispro 100 unit/mL 18 - 22 unit SUBCUT TID 09/03/21 09/03/21 Unknown History subcutaneous pen (Humalog KwikPen (U-100) Insulin) lancets 33 gauge (TRUEplus Lancets) 09/03/21 09/03/21 Unknown History melatonin 3 mg tablet 1 tab PO BEDTIME PRN 09/03/21 09/03/21 Unknown History metoprolol succinate 25 mg 0.5 tab PO DAILY 09/03/21 09/03/21 Unknown History tablet,extended release 24 hr pen needle, diabetic 31 gauge x 09/03/21 09/03/21 Unknown History 04/06 (UltiCare Pen Needle) torsemide 20 mg tablet 40 mg PO BID 09/03/21 09/03/21 Unknown History Physical Exam Vital Signs: Vital Signs: Last Vital Signs Temp 98.6 F 09/03/21 05:05 Pulse 77 09/03/21 05:05 Resp 16 09/03/21 05:05 BP 106/59 L 09/03/21 05:05 Pulse Ox 98 09/03/21 05:05 Body Mass Index 27.4 Const: General: cooperative, comfortable, no acute distress, alert and awake Nutritional Appearance: average body habitus Orientation/consciousness: patient oriented x3 HENMT: Head: Yes atraumatic Neck: Neck: Yes trachea midline, Yes supple and Yes JVD Resp: Effort & Inspection: normal respiratory effort Auscultation: clear to auscultation bilaterally Cardio: Jugular venous distension: JVD Palpation: normal PMI Rate: regular rate Rhythm: regular rhythm Heart sounds: S1 normal heart sound present, S2 normal heart sound present, no click, no gallops, no murmurs and no rubs GI: Auscultation: normal bowel sounds Skin: General skin exam: no rashes or lesions noted Neuro: General: patient oriented x3 and no focal motor deficits Extrem: General: No clubbing, No cyanosis and Yes edema Psych: Appearance: grossly normal Results Labs and Meds Result diagrams: 09/03/21 00:00 09/03/21 00:00 Lab results: Laboratory Results - last 24 hr 09/03/21 09/03/21 09/03/21 00:00 00:00 00:00 WBC 10.2 RBC 4.28 L Hgb 11.8 L Hct 36.8 L MCV 86.0 MCH 27.6 MCHC 32.1 RDW 16.6 H Plt Count 281 D MPV 10.8 Immature Gran % (Auto) 0.2 Neut % (Auto) 70.3 Lymph % (Auto) 11.5 L [place] % (Auto) 16.4 H Eos % (Auto) 1.2 Baso % (Auto) 0.4 Lymph # (Auto) 1.2 [place] # (Auto) 1.7 H Eos # (Auto) 0.1 Baso # (Auto) 0.0 Abs Immat Gran (auto) 0.02 Absolute Neuts (auto) 7.1 Absolute Nucleated RBC 0.000 Nucleated RBC % (auto) 0.0 Smear Tech's Comments VERIFIED Sodium 137 Potassium 3.2 L Chloride 91 L Carbon Dioxide 34 H Anion Gap 15 BUN 75 H Creatinine 3.01 H Estim Creat Clear Calc 18.9 Estimated GFR 20 POC Glucose Random Glucose 328 H D Calcium 9.5 Magnesium 2.2 Total Bilirubin 0.9 Direct Bilirubin 0.6 H AST 31 ALT 41 H Alkaline Phosphatase 90 D Troponin I High Sens 1782.2 H* D B-Natriuretic Peptide 1363 H Total Protein 7.1 D Albumin 4.0 COVID-19 (KATY) COVID-[employer] 09/03/21 09/03/21 09/03/21 00:00 02:59 08:56 WBC RBC Hgb Hct MCV MCH MCHC RDW Plt Count MPV Immature Gran % (Auto) Neut % (Auto) Lymph % (Auto) [place] % (Auto) Eos % (Auto) Baso % (Auto) Lymph # (Auto) [place] # (Auto) Eos # (Auto) Baso # (Auto) Abs Immat Gran (auto) Absolute Neuts (auto) Absolute Nucleated RBC Nucleated RBC % (auto) Smear Tech's Comments Sodium Potassium Chloride Carbon Dioxide Anion Gap BUN Creatinine Estim Creat Clear Calc Estimated GFR POC Glucose 170 H Random Glucose Calcium Magnesium Total Bilirubin Direct Bilirubin AST ALT Alkaline Phosphatase Troponin I High Sens 1569.0 H* B-Natriuretic Peptide Total Protein Albumin COVID-19 (KATY) Negative COVID-19 Listen Edition See Note EKG is of poor quality with poor baseline but appears to show P-waves in some leads and suggestive sinus rhythm with PACs/sinus arrhythmia with no acute ST T wave changes Imaging Radiologist's impression: Impressions Chest X-Ray 09/03/21 00:00 IMPRESSION: Pulmonary venous congestion without overt edema. Assessment and Plan (1) Acute non-ST elevation myocardial infarction (NSTEMI): Status: Acute Patient with atypical symptoms with left arm discomfort and numbness but with elevated troponins. He has prior history of nonobstructive CAD by cardiac catheterization. Cannot completely rule out acute coronary syndrome given his high troponins. However high troponins could be related to underlying chronic kidney disease, heart failure syndrome. A given symptomatic left arm discomfort will pursue stress testing to evaluate for myocardial ischemia and further guide treatment. Continue current anti ischemic therapy with metoprolol and currently on full oral anticoagulation with Eliquis. Avoid parenteral anticoagulation. Blood pressure is optimized at this point in time. (2) Acute on chronic diastolic (congestive) heart failure: Status: Acute Patient with prior history of difficult control heart failure and volume status status post CardioMEMS device. Will advised to check his CardioMEMS device while here to assess pulmonary artery diastolic pressure. Clinically appears to be mildly fluid overloaded. Will give him Lasix 40 mg IV push x1. Continue torsemide 40 mg b.i.d.. Strict intake and output chart needs to be pursued. His BNPs higher than his baseline. Trend BMP and BNP. Blood pressure is otherwise well optimized. Continue hydralazine. Continue rhythm control approach. Will obtain a limited echocardiogram to assess for LV systolic function. Given his clinical scenario should consider workup for cardiac amyloidosis. (3) PAF (paroxysmal atrial fibrillation): Status: Acute Paroxysmal atrial fibrillation which is remaining suppressed on amiodarone therapy. Continue amiodarone therapy. Importance of rhythm control was discussed with him. This has helped his overall heart failure syndrome I think. Continue rhythm control approach. Continue full oral anticoagulation, currently on Eliquis 5 mg b.i.d. which is clinically appropriate dose. Will follow with him. Greater than 45 minutes was spent in managing complex cardiac condition Procedures Date of Service Date of Service: 09/03/21
[2021-09-03] MEDS: Amiodarone HCL 200 MG TABLET PO (11:22)
[2021-09-03] MEDS: Cholecalciferol (Vitamin D3) 25 MCG TABLET 50 MCG PO (11:22)
[2021-09-03] MEDS: Apixaban 5 MG TABLET PO ×2 (11:22→20:41)
[2021-09-03] MEDS: Torsemide 20 MG TABLET 40 MG PO ×2 (11:23→18:10)
[2021-09-03] MEDS: hydrALAZINE HCl 25 MG TABLET PO (11:23)
[2021-09-03] MEDS: Omeprazole 20 MG CAPSULE.DR PO (11:23)
[2021-09-03] MEDS: Insulin Lispro 100 UNIT/ML 3 ML VIAL SUBCUT ×3 (11:24→20:41)
[2021-09-03] MEDS: 0.9 % Sodium Chloride Flush 3 ML SYRINGE IVFLUSH ×2 (11:27→18:12)
[2021-09-03 12:02] LABS: Glucose, Whole Blood 169 mg/dL (60-115)
[2021-09-03] MEDS: Bicalutamide 50 MG TABLET PO (13:19)
[2021-09-03] MEDS: Metoprolol Succinate ER 12.5 MG HALFTAB.ER.24H PO (13:19)
--- NOTE | 2021-09-03 14:34 | P.PNIM_ITS ---
Subjective Subjective Date of Service: 09/03/21 Physical Exam Vital Signs: Vital Signs: Last Vital Signs Temp 98.6 F 09/03/21 05:05 Pulse 78 09/03/21 13:19 Resp 16 09/03/21 05:05 BP 111/69 09/03/21 13:19 Pulse Ox 98 09/03/21 05:05 Body Mass Index 27.4 Objective Data Current Medications Acetaminophen (Acetaminophen 325 Mg Tablet) 650 mg PO Q6H PRN PRN Reason: Pain, Mild (Pain Scale 1-3) Amiodarone HCl (Amiodarone Hcl 200 Mg Tablet) 200 mg PO DAILY [facility] Last Admin: 09/03/21 11:22 Dose: 200 mg Documented by: Apixaban (Apixaban 5 Mg Tablet) 5 mg PO BID [facility] Last Admin: 09/03/21 11:22 Dose: 5 mg Documented by: Atorvastatin Calcium (Atorvastatin Calcium 40 Mg Tablet) 40 mg PO BEDTIME [facility] Bicalutamide (Bicalutamide 50 Mg Tablet) 50 mg PO DAILY [facility] Last Admin: 09/03/21 13:19 Dose: 50 mg Documented by: Dextrose (Dextrose 50 % 25 Gm/50 Ml Vial) 25 gm IVPUSH Q15M PRN; Protocol PRN Reason: per Hypoglycemia Standing Ord. Glucose (Glucose Gel 15 Gm Gel..Gram.) 15 gm PO Q15M PRN; Protocol PRN Reason: per Hypoglycemia Standing Ord. Hydralazine HCl (Hydralazine Hcl 25 Mg Tablet) 25 mg PO TID [facility]; Protocol Last Admin: 09/03/21 11:23 Dose: 25 mg Documented by: Insulin Human Lispro (Insulin Lispro 100 Unit/Ml 3 Ml Vial) 0 unit SUBCUT QIDACHS [facility]; Protocol Last Admin: 09/03/21 14:07 Dose: Not Given Documented by: Melatonin (Melatonin 3 Mg Tablet) 6 mg PO BEDTIME PRN PRN Reason: Insomnia Metoprolol Succinate (Metoprolol Succinate Er 12.5 Mg Halftab.Er.24h) 12.5 mg PO DAILY [facility]; Protocol Last Admin: 09/03/21 13:19 Dose: 12.5 mg Documented by: Omeprazole (Omeprazole 20 Mg Capsule.) 20 mg PO DAILY [facility] Last Admin: 09/03/21 11:23 Dose: 20 mg Documented by: Pharmacy Consult (Consult Rx Perform Med Rec) 1 each MISCELLANE ONCE PRN PRN Reason: Consult order Sodium Chloride (0.9 % Sodium Chloride Flush 3 Ml Syringe) 3 ml IVFLUSH QSHIFT [facility] Last Admin: 09/03/21 11:27 Dose: 3 ml Documented by: Torsemide (Torsemide 20 Mg Tablet) 40 mg PO BID@0830,1630 [facility]; Protocol Last Admin: 09/03/21 11:23 Dose: 40 mg Documented by: Vitamin D (Cholecalciferol (Vitamin D3) 25 Mcg Tablet) 50 mcg PO DAILY@1200 [facility] Last Admin: 09/03/21 11:22 Dose: 50 mcg Documented by: Labs CBC & Chem 7: 09/03/21 00:00 09/03/21 00:00 Labs: Laboratory Results - last 24 hr 09/03/21 09/03/21 09/03/21 00:00 00:00 00:00 MCV 86.0 MCH 27.6 MCHC 32.1 RDW 16.6 H Plt Count 281 D MPV 10.8 Immature Gran % (Auto) 0.2 Neut % (Auto) 70.3 Lymph % (Auto) 11.5 L Gregory % (Auto) 16.4 H Eos % (Auto) 1.2 Baso % (Auto) 0.4 Lymph # (Auto) 1.2 Gregory # (Auto) 1.7 H Eos # (Auto) 0.1 Baso # (Auto) 0.0 Abs Immat Gran (auto) 0.02 Absolute Neuts (auto) 7.1 Absolute Nucleated RBC 0.000 Nucleated RBC % (auto) 0.0 Smear Tech's Comments VERIFIED Anion Gap 15 Estim Creat Clear Calc 18.9 Estimated GFR 20 POC Glucose Random Glucose 328 H D Calcium 9.5 Magnesium 2.2 Total Bilirubin 0.9 Direct Bilirubin 0.6 H AST 31 ALT 41 H Alkaline Phosphatase 90 D Troponin I High Sens 1782.2 H* D B-Natriuretic Peptide 1363 H Total Protein 7.1 D Albumin 4.0 COVID-19 (KATY) COVID-19 Clin Com 09/03/21 09/03/21 09/03/21 00:00 02:59 08:56 MCV MCH MCHC RDW Plt Count MPV Immature Gran % (Auto) Neut % (Auto) Lymph % (Auto) Gregory % (Auto) Eos % (Auto) Baso % (Auto) Lymph # (Auto) Gregory # (Auto) Eos # (Auto) Baso # (Auto) Abs Immat Gran (auto) Absolute Neuts (auto) Absolute Nucleated RBC Nucleated RBC % (auto) Smear Tech's Comments Anion Gap Estim Creat Clear Calc Estimated GFR POC Glucose 170 H Random Glucose Calcium Magnesium Total Bilirubin Direct Bilirubin AST ALT Alkaline Phosphatase Troponin I High Sens 1569.0 H* B-Natriuretic Peptide Total Protein Albumin COVID-19 (KATY) Negative COVID-19 Clin Com See Note 09/03/21 11:55 MCV MCH MCHC RDW Plt Count MPV Immature Gran % (Auto) Neut % (Auto) Lymph % (Auto) Gregory % (Auto) Eos % (Auto) Baso % (Auto) Lymph # (Auto) Gregory # (Auto) Eos # (Auto) Baso # (Auto) Abs Immat Gran (auto) Absolute Neuts (auto) Absolute Nucleated RBC Nucleated RBC % (auto) Smear Tech's Comments Anion Gap Estim Creat Clear Calc Estimated GFR POC Glucose 169 H Random Glucose Calcium Magnesium Total Bilirubin Direct Bilirubin AST ALT Alkaline Phosphatase Troponin I High Sens B-Natriuretic Peptide Total Protein Albumin COVID-19 (KATY) COVID-19 Clin Com Quality Stroke Does the patient have a stroke diagnosis?: No VTE Prior VTE?: No VTE Risk Level:: Medical - moderate - high VTE Device Contraindication: N/A - Device Ordered VTE Drug Contraindication: Treatment Not Indicated
--- NOTE | 2021-09-03 14:38 | P.EN_ITS ---
Event Note Date of Service: 09/03/21 Event Note: 76-year-old male with a past medical history of hypertension, hype rlipidemia, diabetes, CAD, CHF, CKD, diabetic polyneuropathy, paroxysmal AFib on Eliquis, history of NSVT, history of prostate cancer, gout presented to the hospital with a chief complaint of left arm pain.? Noted to have elevated troponins.? Concern for NSTEMI.? Very complicated cardiac history with CardiacMEMS Elevated troponin. Presenting with left arm pain and right hand tingling Seen by cardiology with rec for stress test, after results can have better plan re whether this is ischemia or not Troponins [id number] continue eliquis History of CKD Baseline creatinine around 3. History of CHF. . Not in fluid overload.? Received one dose of IV lasix as per cardiology Continue home diuretics of torsemide CardioMEMs device History of AFib. Rate controlled.? amiodarone, metoprolol Patient on Eliquis. 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. stable hydralazine History of diabetes Patient on Trulicity at home.? sliding scale DVT prophylaxis Eliquis Code status:? Full code Attending Dr. Venegas
[2021-09-03 17:15] LABS: Glucose, Whole Blood 184 mg/dL (60-115)
--- NOTE | 2021-09-03 18:47 | MHC.CM.PN ---
CM met with admitted patient, with bed assignment pending. community service technician used as pt is Chadian speaking. present. IMM reviewed and signed per protocol 09/03/21@1810. HCP on file. HCP/ Charles Figueredo ([phone]). PCP is Dr. Miriam Gray. Pt is fully vaccinated with Moderna. tells CM that their daughter, Marilee, has applied to be his [employer]. [employer] is insurance. D/C plan is home without services. Cardiac rehabilitation pending recommendations from cardiology. Transportation provided by family. CM to follow for d/c needs.
[2021-09-03 20:32] LABS: Glucose, Whole Blood 218 mg/dL (60-115)
[2021-09-03] MEDS: Atorvastatin Calcium 40 MG TABLET PO (20:36)
[2021-09-04] VITALS (14 sets, daily range): BP systolic 98–122; BP diastolic 49–68; PULSE 65–87; RESP 16–22; TEMP 36.1–36.7; O2SAT 97–99; BMI 27.4
[2021-09-04 04:18] LABS: Glucose, Whole Blood 95 mg/dL (60-115)
--- NOTE | 2021-09-04 04:18 | PC.NURSE ---
PT requested to have his POC checked. PT reported complaints of tremors which he usually feels at home when his blood sugar is low. POC found to be 95. PT offered orange juice.
[2021-09-04 06:46] LABS: MANUAL DIFF FLAG NO
[2021-09-04 06:48] LABS: Basophils Absolute Auto 0.1 X10*3/uL (0.0-0.2); Basophils Percent Auto 0.4 % (0-2); Eosinophils Absolute Auto 0.3 X10*3/uL (0.0-0.4); Eosinophils Percent Auto 2.4 % (0-4); Hematocrit 35.7 % (42-52); Hemoglobin 11.2 g/dl (14.0-18.0); Imm Gran Abs Auto 0.03 X10*3/uL (0.00-0.03); Imm Gran Pct Auto 0.3 % (0.0-0.4); Lymphocytes Absolute Auto 1.5 X10*3/uL (1.2-4.9); Lymphocytes Percent Auto 12.9 % (20-40); Mean Corpuscular HGB Conc 31.4 g/dl (31.0-36.0); Mean Corpuscular Hemoglobin 27.1 pg (27.0-33.0); Mean Corpuscular Volume 86.2 fL (80-98); Mean Platelet Volume 10.7 fL (9.4-12.4); Monocytes Absolute Auto 1.4 X10*3/uL (0.1-1.2); Monocytes Percent Auto 12.6 % (2-11); Neutrophils Absolute Auto 8.2 X10*3/uL (2.0-8.3); Neutrophils Percent Auto 71.4 % (45-73); Platelet Count 236 X10*3/uL (160-400); Red Blood Count 4.14 X10*6/uL (4.60-5.80); Red Cell Distribution Width 16.7 % (11.0-16.0); White Blood Count 11.4 X10*3/uL (4.8-10.8)
[2021-09-04 07:00] LABS: Glucose, Whole Blood 131 mg/dL (60-115)
[2021-09-04 07:10] LABS: B Type Natriuretic Peptide 1481 pg/mL (<100)
[2021-09-04 07:15] LABS: Anion Gap 15 (12-20); Blood Urea Nitrogen 67 mg/dL (9-16); Calcium 9.3 mg/dL (8.4-10.2); Carbon Dioxide 34 mmol/L (22-29); Chloride 97 mmol/L (96-108); Creatinine Clr Calc Pharmacy 24.6; Estimated Glomerular Filt Rate 28; Glucose Random 130 mg/dL (60-115); Sodium 143 mmol/L (135-145)
[2021-09-04] MEDS: Omeprazole 20 MG CAPSULE.DR PO (10:07)
[2021-09-04] MEDS: hydrALAZINE HCl 25 MG TABLET PO ×2 (10:07→20:48)
[2021-09-04] MEDS: Apixaban 5 MG TABLET PO ×2 (10:08→20:48)
[2021-09-04] MEDS: Amiodarone HCL 200 MG TABLET PO (10:08)
[2021-09-04] MEDS: Metoprolol Succinate ER 12.5 MG HALFTAB.ER.24H PO (10:08)
[2021-09-04] MEDS: 0.9 % Sodium Chloride Flush 3 ML SYRINGE IVFLUSH ×3 (10:31→23:08)
[2021-09-04] MEDS: Bicalutamide 50 MG TABLET PO (10:31)
[2021-09-04] MEDS: Torsemide 20 MG TABLET 40 MG PO ×2 (10:31→15:27)
[2021-09-04 11:40] LABS: Glucose, Whole Blood 163 mg/dL (60-115)
[2021-09-04] MEDS: Insulin Lispro 100 UNIT/ML 3 ML VIAL SUBCUT ×3 (12:54→20:47)
--- NOTE | 2021-09-04 13:31 | PM.PNCARD ---
Subjective Subjective Date of Service: 09/04/21 Principal diagnosis: NSTEMI Interval history: Patient could not undergo stress testing due to caffeine intake today. He says he intermittently still has left arm discomfort. Still short of breath. Denies palpitations. His CardioMEMS reading today is 13 mm of mercury. This is within normal limits and consider to be euvolemic status Review of Systems Constitutional: Reports no additional constitutional complaints Cardiovascular: Denies chest pain, Denies lightheadedness, Denies palpitations and Reports orthopnea Respiratory: Reports no additional respiratory complaints Gastrointestinal: Reports no additional gastrointestinal complaints Reports system reviewed and no additional complaints, except as documented Psychiatric: Reports no additional psychiatric complaints Endocrine: Denies palpitations Physical Exam Vital Signs: Last Vital Signs Temp 98.0 F 09/04/21 11:20 Pulse 77 09/04/21 11:20 Resp 22 H 09/04/21 11:20 BP 98/49 L 09/04/21 11:20 Pulse Ox 98 09/04/21 11:20 Body Mass Index 27.4 Const General: cooperative, comfortable, no acute distress, alert and awake Nutritional Appearance: other (Frail elderly man) Orientation/consciousness: patient oriented x3 Neck Neck: Yes trachea midline, Yes supple and Yes no JVD Resp Effort & Inspection: decreased respiratory effort Auscultation: clear to auscultation bilaterally, no rales and no wheezes Cardio Jugular venous distension: no JVD Palpation: normal PMI Rate: regular rate Rhythm: regular rhythm Heart sounds: S1 normal heart sound present, S2 normal heart sound present, no click, no gallops and no murmurs GI Auscultation: normal bowel sounds Neuro General: patient oriented x3 and no focal motor deficits Extrem General: Yes no clubbing, cyanosis or edema Results Labs and Meds Result diagrams: 09/04/21 06:39 09/04/21 06:39 Lab results: Laboratory Results - last 24 hr 09/03/21 09/03/21 09/04/21 17:08 20:28 04:13 WBC RBC Hgb Hct MCV MCH MCHC RDW Plt Count MPV Immature Gran % (Auto) Neut % (Auto) Lymph % (Auto) Candler % (Auto) Eos % (Auto) Baso % (Auto) Lymph # (Auto) Candler # (Auto) Eos # (Auto) Baso # (Auto) Abs Immat Gran (auto) Absolute Neuts (auto) Absolute Nucleated RBC Nucleated RBC % (auto) Sodium Potassium Chloride Carbon Dioxide Anion Gap BUN Creatinine Estim Creat Clear Calc Estimated GFR POC Glucose 184 H 218 H 95 Random Glucose Calcium B-Natriuretic Peptide 09/04/21 09/04/21 09/04/21 06:39 06:39 06:39 WBC 11.4 H RBC 4.14 L Hgb 11.2 L Hct 35.7 L MCV 86.2 MCH 27.1 MCHC 31.4 RDW 16.7 H Plt Count 236 MPV 10.7 Immature Gran % (Auto) 0.3 Neut % (Auto) 71.4 Lymph % (Auto) 12.9 L Candler % (Auto) 12.6 H Eos % (Auto) 2.4 Baso % (Auto) 0.4 Lymph # (Auto) 1.5 Candler # (Auto) 1.4 H Eos # (Auto) 0.3 Baso # (Auto) 0.1 Abs Immat Gran (auto) 0.03 Absolute Neuts (auto) 8.2 Absolute Nucleated RBC 0.000 Nucleated RBC % (auto) 0.0 Sodium 143 Potassium 3.0 L Chloride 97 Carbon Dioxide 34 H Anion Gap 15 BUN 67 H Creatinine 2.32 H Estim Creat Clear Calc 24.6 Estimated GFR 28 POC Glucose Random Glucose 130 H D Calcium 9.3 B-Natriuretic Peptide 1481 H 09/04/21 09/04/21 06:57 11:33 WBC RBC Hgb Hct MCV MCH MCHC RDW Plt Count MPV Immature Gran % (Auto) Neut % (Auto) Lymph % (Auto) Candler % (Auto) Eos % (Auto) Baso % (Auto) Lymph # (Auto) Candler # (Auto) Eos # (Auto) Baso # (Auto) Abs Immat Gran (auto) Absolute Neuts (auto) Absolute Nucleated RBC Nucleated RBC % (auto) Sodium Potassium Chloride Carbon Dioxide Anion Gap BUN Creatinine Estim Creat Clear Calc Estimated GFR POC Glucose 131 H 163 H Random Glucose Calcium B-Natriuretic Peptide CardioMEMS reading at 13 mm of mercury Progress Note: A&P Assessment and plan (1) Acute non-ST elevation myocardial infarction (NSTEMI): Status: Acute Assessment and Plan: Patient with elevated troponin with left arm discomfort which is atypical. Awaiting myocardial perfusion imaging. Resting perfusion study done today and stress perfusion study will be done tomorrow. Further treatment based on the findings of myocardial perfusion imaging. Continue low-dose aspirin therapy. Blood pressure is optimized at this point in time. Continue statin therapy. (2) Chronic heart failure with preserved ejection fraction (HFpEF): Status: Acute Assessment and Plan: Heart failure preserved ejection fraction, his creatinine is actually improved significantly today. His pulmonary artery diastolic pressures have improved and at 13 mm of mercury. Continue p.o. torsemide at this point in time. Continue to monitor renal function tomorrow. His BNP is still elevated to 1400 range most likely his new dry BNP level. (3) PAF (paroxysmal atrial fibrillation): Status: Acute Assessment and Plan: Paroxysmal atrial fibrillation maintaining rhythm. Continue amiodarone therapy. Has benefit with rhythm control approach will continue to monitor and pursue the same. Continue full oral anticoagulation, currently on Eliquis 5 mg b.i.d.. Will follow with you Fall Risk Details Current Medications: Current Medications Acetaminophen (Acetaminophen 325 Mg Tablet) 650 mg PO Q6H PRN PRN Reason: Pain, Mild (Pain Scale 1-3) Amiodarone HCl (Amiodarone Hcl 200 Mg Tablet) 200 mg PO DAILY [facility] Last Admin: 09/04/21 10:08 Dose: 200 mg Documented by: Apixaban (Apixaban 5 Mg Tablet) 5 mg PO BID [facility] Last Admin: 09/04/21 10:08 Dose: 5 mg Documented by: Atorvastatin Calcium (Atorvastatin Calcium 40 Mg Tablet) 40 mg PO BEDTIME [facility] Last Admin: 09/03/21 20:36 Dose: 40 mg Documented by: Bicalutamide (Bicalutamide 50 Mg Tablet) 50 mg PO DAILY [facility] Last Admin: 09/04/21 10:31 Dose: 50 mg Documented by: Dextrose (Dextrose 50 % 25 Gm/50 Ml Vial) 25 gm IVPUSH Q15M PRN; Protocol PRN Reason: per Hypoglycemia Standing Ord. Glucose (Glucose Gel 15 Gm Gel..Gram.) 15 gm PO Q15M PRN; Protocol PRN Reason: per Hypoglycemia Standing Ord. Hydralazine HCl (Hydralazine Hcl 25 Mg Tablet) 25 mg PO TID [facility]; Protocol Last Admin: 09/04/21 10:07 Dose: 25 mg Documented by: Insulin Human Lispro (Insulin Lispro 100 Unit/Ml 3 Ml Vial) 0 unit SUBCUT QIDACHS [facility]; Protocol Last Admin: 09/04/21 12:54 Dose: 2 unit Documented by: Melatonin (Melatonin 3 Mg Tablet) 6 mg PO BEDTIME PRN PRN Reason: Insomnia Metoprolol Succinate (Metoprolol Succinate Er 12.5 Mg Halftab.Er.24h) 12.5 mg PO DAILY [facility]; Protocol Last Admin: 09/04/21 10:08 Dose: 12.5 mg Documented by: Omeprazole (Omeprazole 20 Mg Capsule.Dr) 20 mg PO DAILY [facility] Last Admin: 09/04/21 10:07 Dose: 20 mg Documented by: Pharmacy Consult (Consult Rx Perform Med Rec) 1 each MISCELLANE ONCE PRN PRN Reason: Consult order Sodium Chloride (0.9 % Sodium Chloride Flush 3 Ml Syringe) 3 ml IVFLUSH QSHIFT [facility] Last Admin: 09/04/21 10:31 Dose: 3 ml Documented by: Torsemide (Torsemide 20 Mg Tablet) 40 mg PO BID@0830,1630 [facility]; Protocol Last Admin: 09/04/21 10:31 Dose: 40 mg Documented by: Vitamin D (Cholecalciferol (Vitamin D3) 25 Mcg Tablet) 50 mcg PO DAILY@1200 [facility] Last Admin: 09/04/21 12:26 Dose: Not Given Documented by: Time Spent With Patient Time: Total time spent is greater than 50% in coordination of care (as documented) at patient's floor/unit and/or counseling patient: Time with patient: 25 - 35 minutes Progress Note: Quality Stroke Does the patient have a stroke diagnosis?: No Procedures Date of Service Date of Service: 09/04/21
--- NOTE | 2021-09-04 13:55 | P.PNIM_ITS ---
Subjective Subjective Date of Service: 09/04/21 Interval History: Seen and examined this morning Follow-up for NSTEMI. No chest pain at this time Reports shortness of breath overnight, no shortness of breath at this Review of Systems Review of Systems: Yes all other systems are reviewed and are negative Constitutional Constitutional: Denies chills and Denies fever(s) Cardiovascular Cardiovascular: Denies chest pain Respiratory Respiratory: Denies cough Gastrointestinal Gastrointestinal: Denies abdominal pain Physical Exam Vital Signs: Vital Signs: Last Vital Signs Temp 98.0 F 09/04/21 11:20 Pulse 77 09/04/21 11:20 Resp 22 H 09/04/21 11:20 BP 98/49 L 09/04/21 11:20 Pulse Ox 98 09/04/21 11:20 Body Mass Index 27.4 Const: General: comfortable, no acute distress, alert and awake Nutritional Appearance: well nourished Orientation/consciousness: patient oriented x3 HENMT: Head: Yes normocephalic and Yes atraumatic Eyes: Sclerae: sclerae normal Pupils: Equal, round and reactive pupils present Resp: Effort & Inspection: normal respiratory effort and no respiratory distress Cardio: Rate: regular rate Rhythm: regular rhythm GI: Palpation (GI): Soft to palpation and nontender Neuro: General: patient oriented x3 Cranial nerves: Yes CN's II-XII intact bilaterally, Yes Equal, round and reactive pupils present and Yes Bilaterally intact EOM present Extrem: Other: no leg edema Objective Data Active Medications Acetaminophen (Acetaminophen 325 Mg Tablet) 650 mg PO Q6H PRN PRN Reason: Pain, Mild (Pain Scale 1-3) Amiodarone HCl (Amiodarone Hcl 200 Mg Tablet) 200 mg PO DAILY [facility] Last Admin: 09/04/21 10:08 Dose: 200 mg Documented by: RAJENDRA Apixaban (Apixaban 5 Mg Tablet) 5 mg PO BID [facility] Last Admin: 09/04/21 10:08 Dose: 5 mg Documented by: RAJENDRA Atorvastatin Calcium (Atorvastatin Calcium 40 Mg Tablet) 40 mg PO BEDTIME [facility] Last Admin: 09/03/21 20:36 Dose: 40 mg Documented by: CHARLIE Bicalutamide (Bicalutamide 50 Mg Tablet) 50 mg PO DAILY [facility] Last Admin: 09/04/21 10:31 Dose: 50 mg Documented by: RAJENDRA Dextrose (Dextrose 50 % 25 Gm/50 Ml Vial) 25 gm IVPUSH Q15M PRN; Protocol PRN Reason: per Hypoglycemia Standing Ord. Glucose (Glucose Gel 15 Gm Gel..Gram.) 15 gm PO Q15M PRN; Protocol PRN Reason: per Hypoglycemia Standing Ord. Hydralazine HCl (Hydralazine Hcl 25 Mg Tablet) 25 mg PO TID [facility]; Protocol Last Admin: 09/04/21 10:07 Dose: 25 mg Documented by: RAJENDRA Insulin Human Lispro (Insulin Lispro 100 Unit/Ml 3 Ml Vial) 0 unit SUBCUT QIDACHS [facility]; Protocol Last Admin: 09/04/21 12:54 Dose: 2 unit Documented by: IGLESIA Melatonin (Melatonin 3 Mg Tablet) 6 mg PO BEDTIME PRN PRN Reason: Insomnia Metoprolol Succinate (Metoprolol Succinate Er 12.5 Mg Halftab.Er.24h) 12.5 mg PO DAILY [facility]; Protocol Last Admin: 09/04/21 10:08 Dose: 12.5 mg Documented by: RAJENDRA Omeprazole (Omeprazole 20 Mg Capsule.Dr) 20 mg PO DAILY [facility] Last Admin: 09/04/21 10:07 Dose: 20 mg Documented by: RAJENDRA Pharmacy Consult (Consult Rx Perform Med Rec) 1 each MISCELLANE ONCE PRN PRN Reason: Consult order Sodium Chloride (0.9 % Sodium Chloride Flush 3 Ml Syringe) 3 ml IVFLUSH QSHIFT [facility] Last Admin: 09/04/21 10:31 Dose: 3 ml Documented by: RAJENDRA Torsemide (Torsemide 20 Mg Tablet) 40 mg PO BID@0830,1630 [facility]; Protocol Last Admin: 09/04/21 10:31 Dose: 40 mg Documented by: RAJENDRA Vitamin D (Cholecalciferol (Vitamin D3) 25 Mcg Tablet) 50 mcg PO DAILY@1200 [facility] Last Admin: 09/04/21 12:26 Dose: Not Given Documented by: IGLESIA Non-Admin Reason: Med Not Available Labs CBC & Chem 7: 09/04/21 06:39 09/04/21 06:39 Labs: Laboratory Results - last 24 hr 09/03/21 09/03/21 09/04/21 17:08 20:28 04:13 MCV MCH MCHC RDW Plt Count MPV Immature Gran % (Auto) Neut % (Auto) Lymph % (Auto) Fisher % (Auto) Eos % (Auto) Baso % (Auto) Lymph # (Auto) Fisher # (Auto) Eos # (Auto) Baso # (Auto) Abs Immat Gran (auto) Absolute Neuts (auto) Absolute Nucleated RBC Nucleated RBC % (auto) Anion Gap Estim Creat Clear Calc Estimated GFR POC Glucose 184 H 218 H 95 Random Glucose Calcium B-Natriuretic Peptide 09/04/21 09/04/21 09/04/21 06:39 06:39 06:39 MCV 86.2 MCH 27.1 MCHC 31.4 RDW 16.7 H Plt Count 236 MPV 10.7 Immature Gran % (Auto) 0.3 Neut % (Auto) 71.4 Lymph % (Auto) 12.9 L Fisher % (Auto) 12.6 H Eos % (Auto) 2.4 Baso % (Auto) 0.4 Lymph # (Auto) 1.5 Fisher # (Auto) 1.4 H Eos # (Auto) 0.3 Baso # (Auto) 0.1 Abs Immat Gran (auto) 0.03 Absolute Neuts (auto) 8.2 Absolute Nucleated RBC 0.000 Nucleated RBC % (auto) 0.0 Anion Gap 15 Estim Creat Clear Calc 24.6 Estimated GFR 28 POC Glucose Random Glucose 130 H D Calcium 9.3 B-Natriuretic Peptide 1481 H 09/04/21 09/04/21 06:57 11:33 MCV MCH MCHC RDW Plt Count MPV Immature Gran % (Auto) Neut % (Auto) Lymph % (Auto) Fisher % (Auto) Eos % (Auto) Baso % (Auto) Lymph # (Auto) Fisher # (Auto) Eos # (Auto) Baso # (Auto) Abs Immat Gran (auto) Absolute Neuts (auto) Absolute Nucleated RBC Nucleated RBC % (auto) Anion Gap Estim Creat Clear Calc Estimated GFR POC Glucose 131 H 163 H Random Glucose Calcium B-Natriuretic Peptide Assessment and Plan (1) Acute non-ST elevation myocardial infarction (NSTEMI): Status: Acute (2) Acute on chronic diastolic (congestive) heart failure: Status: Acute Assessment and Plan: This is a 76-year-old male with a past medical history of hypertension, hy perlipidemia, diabetes, CAD, CHF s/p cardioMEMS device, CKD, diabetic polyneuropathy, paroxysmal AFib on Eliquis, history of NSVT, history of prostate cancer, gout presented to the hospital with a chief complaint of left arm pain.? Noted to have elevated troponins.? Concern for NSTEMI.? Very complicated cardiac history with CardiacMEMS NSTEMI Presenting with left arm pain and right hand tingling. Troponins [id number] Seen by cardiology with rec for stress test, resting portion done yesterday, st ress images planned for tomorrow continue eliquis, statin, BB Hypokalemia Replace and follow BMP History of CKD Baseline creatinine around 3. Acute on chronic HFpEF s/p cardioMEMs device Received one dose of IV lasix as per cardiology. now euvolemic Continue home torsemide History of AFib. Rate controlled.? continue amiodarone, metoprolol Continue AC with Eliquis. 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. stable Continue hydralazine, metoprolol History of diabetes Trulicity non formulary sliding scale h/o prostate cancer continue casodex DVT prophylaxis Eliquis Code status:? Full code Attending Dr. Venegas Quality Stroke Does the patient have a stroke diagnosis?: No VTE Prior VTE?: No VTE Risk Level:: Medical - moderate - high VTE Device Contraindication: N/A - Device Ordered VTE Drug Contraindication: Treatment Not Indicated
[2021-09-04 14:30] LABS: Magnesium 2.2 mg/dL (1.6-2.6)
[2021-09-04] MEDS: Potassium Chloride ER 20 MEQ TAB.ER.PRT 40 MEQ PO (15:26)
--- NOTE | 2021-09-04 15:35 | MHC.CLN ---
Addendum entered by Licha Hutchins, JAC 09/04/21 15:36: AGREE WITH PROVIDER'S ASSESSMENT BELOW SEE CLINICAL NUTRITION ASSESSMENT Original Note: RE: CONSULT PT IS SEVERELY MALNOURISHED IN THE CONTEXT OF CHRONIC ILLNESS PT EXPERIENCED A SIGNIFICANT 14% WT LOSS IN 5 MONTHS AND <75% ENERGY INTAKE > 1 MONTH PT STATED HE'S HAD DECREASED APPETITE FOR A MONTH SINCE STARTING TOPROL MEDICATION RECOMMEND GLUCERNA SUPPLEMENT BID TO INCREASE KCALS MONITOR PO INTAKE AND SUPPLEMENT ACCEPTANCE
[2021-09-04 17:06] LABS: Glucose, Whole Blood 198 mg/dL (60-115)
[2021-09-04 20:24] LABS: Glucose, Whole Blood 331 mg/dL (60-115)
[2021-09-04] MEDS: Atorvastatin Calcium 40 MG TABLET PO (20:48)
[2021-09-05 03:16] VITALS: BP 103/59; PULSE 84; RESP 17; TEMP 36.5; O2SAT 98
[2021-09-05 05:29] VITALS: BMI 26.9
[2021-09-05 07:07] LABS: Anion Gap 15 (12-20); Blood Urea Nitrogen 69 mg/dL (9-16); Calcium 9.3 mg/dL (8.4-10.2); Carbon Dioxide 32 mmol/L (22-29); Chloride 98 mmol/L (96-108); Creatinine Clr Calc Pharmacy 22.7; Estimated Glomerular Filt Rate 26; Glucose Random 127 mg/dL (60-115); Potassium 3.4 mmol/L (3.3-5.1); Sodium 142 mmol/L (135-145)
[2021-09-05 07:33] VITALS: BP 115/62; PULSE 73; RESP 17; TEMP 36.7; O2SAT 97
[2021-09-05 07:40] LABS: Glucose, Whole Blood 125 mg/dL (60-115)
[2021-09-05 07:48] VITALS: BP 115/62; PULSE 73
[2021-09-05] MEDS: Apixaban 5 MG TABLET PO (07:48)
[2021-09-05] MEDS: Metoprolol Succinate ER 12.5 MG HALFTAB.ER.24H PO (07:48)
[2021-09-05] MEDS: 0.9 % Sodium Chloride Flush 3 ML SYRINGE IVFLUSH (07:48)
[2021-09-05 07:49] VITALS: BP 115/62; PULSE 73
[2021-09-05] MEDS: Bicalutamide 50 MG TABLET PO (07:49)
[2021-09-05] MEDS: Amiodarone HCL 200 MG TABLET PO (07:49)
[2021-09-05] MEDS: Omeprazole 20 MG CAPSULE.DR PO (07:49)
[2021-09-05] MEDS: Torsemide 20 MG TABLET 40 MG PO (07:49)
[2021-09-05] MEDS: hydrALAZINE HCl 25 MG TABLET PO (07:49)
[2021-09-05 11:58] VITALS: BP 112/57; PULSE 75; RESP 18; TEMP 36.4; O2SAT 98
[2021-09-05 12:03] LABS: Glucose, Whole Blood 175 mg/dL (60-115)
[2021-09-05] MEDS: Insulin Lispro 100 UNIT/ML 3 ML VIAL SUBCUT (12:32)
[2021-09-05] MEDS: Cholecalciferol (Vitamin D3) 25 MCG TABLET 50 MCG PO (12:33)
--- NOTE | 2021-09-05 12:42 | PM.PNCARD ---
Subjective Subjective Date of Service: 09/05/21 <GIOVANA Macias - Last Filed: 09/05/21 12:51> 09/05/21 <Eric Richardson MD - Last Filed: 09/05/21 14:21> Principal diagnosis: NSTEMI <GIOVANA Macias - Last Filed: 09/05/21 12:51> Interval history: Cardiology follow up for NSTEMI. Seen at 0930. Today he reports that he is feeling well. His only complaint this morning is that the finger tips on his right hand are numb. He has no recurrent left arm or chest area discomfort. He has no shortness of breath, dizziness, presyncope, syncope, PND, orthopnea or edema. He is having the stress portion of his stress test this morning. Certified speech language pathologist travel used. <GIOVANA Macias - Last Filed: 09/05/21 12:51> Review of Systems Review of Systems As above <GIOVANA Macias - Last Filed: 09/05/21 12:51> Yes all other systems are reviewed and are negative <GIOVANA Macias - Last Filed: 09/05/21 12:51> Physical Exam Vital Signs: Last Vital Signs Temp 97.5 F 09/05/21 11:58 Pulse 75 09/05/21 11:58 Resp 18 09/05/21 11:58 BP 112/57 L 09/05/21 11:58 Pulse Ox 98 09/05/21 11:58 Body Mass Index 26.9 <GIOVANA Macias - Last Filed: 09/05/21 12:51> Const General: cooperative, no acute distress, alert and awake <GIOVANA Macias - Last Filed: 09/05/21 12:51> Orientation/consciousness: patient oriented x3 <GIOVANA Macias Last Filed: 09/05/21 12:51> HENMT Head: Yes normal to inspection <GIOVANA Macias - Last Filed: 09/05/21 12:51> Neck Neck: Yes normal visual inspection and Yes no JVD <GIOVANA Macias - Last Filed: 09/05/21 12:51> Resp Effort & Inspection: normal respiratory effort, able to speak in complete sentences and not labored <Dona MAURISIO Diez - Last Filed: 09/05/21 12:51> Auscultation: clear to auscultation bilaterally, no crackles, no rales, no rhonchi and no wheezes <[facility] Chary [facility] - Last Filed: 09/05/21 12:51> Cardio Palpation: normal PMI <[facility]ary [facility] - Last Filed: 09/05/21 12:51> Rate: regular rate <[facility] Chary [facility] - Last Filed: 09/05/21 12:51> Rhythm: regular rhythm <[facility]ary [facility] - Last Filed: 09/05/21 12:51> Heart sounds: S1 normal heart sound present and S2 normal heart sound present <[facility]ary [facility] - Last Filed: 09/05/21 12:51> Peripheral pulses: Peripheral pulses 2+ throughout <[facility]ary [facility] - Last Filed: 09/05/21 12:51> GI Inspection: Yes normal to inspection <[facility] - Last Filed: 09/05/21 12:51> Neuro General: patient oriented x3 <[facility] - Last Filed: 09/05/21 12:51> Extrem General: Yes normal to inspection and No edema <[facility] - Last Filed: 09/05/21 12:51> Results Labs and Meds Result diagrams: : 09/04/21 06:39 09/05/21 05:56 <[facility] - Last Filed: 09/05/21 12:51> Lab results: Laboratory Results - last 24 hr 09/04/21 09/04/21 09/04/21 06:39 17:02 20:14 Sodium Potassium Chloride Carbon Dioxide Anion Gap BUN Creatinine Estim Creat Clear Calc Estimated GFR POC Glucose 198 H 331 H Random Glucose Calcium Magnesium 2.2 09/05/21 09/05/21 09/05/21 05:56 07:37 11:57 Sodium 142 Potassium 3.4 Chloride 98 Carbon Dioxide 32 H Anion Gap 15 BUN 69 H Creatinine 2.48 H Estim Creat Clear Calc 22.7 Estimated GFR 26 POC Glucose 125 H 175 H Random Glucose 127 H Calcium 9.3 Magnesium <Dona Karlie GIOVANA Diez - Last Filed: 09/05/21 12:51> Progress Note: A&P Assessment and plan (1) Acute non-ST elevation myocardial infarction (NSTEMI): Status: Acute <GIOVANA Macias - Last Filed: 09/05/21 12:51> Assessment and Plan: Admit with left arm discomfort and ruled in for ACS with elevated troponin up to 1782. EKG shows no ischemia. Has not had recurrent symptoms since admission. Last echo done 07/30/2020 shows EF 50-55%, grade 3 diastolic dysfunction, mild LVH, [id number] MR. Currently being managed medically. Having nuclear stress test completed today, results are pending. Further treatment plan to be determined when results are available. Continue current medical management including atorvastatin, metoprolol XL. He is not on aspirin as he is on Eliquis. Ongoing telemetry monitoring. We will follow <GIOVANA Macias - Last Filed: 09/05/21 12:51> Admit with left arm discomfort and ruled in for ACS with elevated troponin up to 1782. EKG shows no ischemia. Has not had recurrent symptoms since admission. Last echo done 07/30/2020 shows EF 50-55%, grade 3 diastolic dysfunction, mild LVH, [id number] MR. Currently being managed medically. Having nuclear stress test completed today, results are pending. Further treatment plan to be determined when results are available. Continue current medical management including atorvastatin, metoprolol XL. He is not on aspirin as he is on Eliquis. Ongoing telemetry monitoring. We will follow Patient seen and examined. Case discussed with Dona Diez. Patient not having any heart failure symptoms. Not having any left arm discomfort. Myocardial perfusion imaging is abnormal and gated study shows low EF. Patient overall doing well. Continue rhythm control approach. Continue full oral anticoagulation. Clinically euvolemic and well compensated. Continue torsemide 40 mg b.i.d.. Will follow up with outpatient echocardiogram and will pursue invasive cardiac catheterization if he continues to have symptoms. Given his renal function will hold off on cardiac catheterization at this point time. Continue anti ischemic therapy. Patient can be discharged from cardiac perspective. <Eric Richardson MD - Last Filed: 09/05/21 14:21> (2) Acute on chronic diastolic (congestive) heart failure: Status: Acute <GIOVANA Macias - Last Filed: 09/05/21 12:51> Assessment and Plan: Recent admission for acute on chronic diastolic heart failure. Currently seems compensated. Has CardioMEMS device and had PAD reading yesterday of 13 which is within his goal range. Continue his current diuretic of torsemide 40 mg b.i.d.. Watch for clinical signs indicating decompensated heart failure. <GIOVANA Macias - Last Filed: 09/05/21 12:51> (3) Presence of CardioMEMS HF system: Status: Acute <GIOVANA Macias - Last Filed: 09/05/21 12:51> (4) PAF (paroxysmal atrial fibrillation): Status: Acute <GIOVANA Macias - Last Filed: 09/05/21 12:51> Assessment and Plan: History of paroxysmal atrial fibrillation, currently suppressed with amiodarone 200 mg daily. He is also on low-dose metoprolol. Telemetry monitoring shows sinus rhythm with first-degree AV block, rates 70s to 80s. No reports of heart palpitations. He is on Eliquis for anticoagulation. No reports of bleeding. <GIOVANA Macias - Last Filed: 09/05/21 12:51> Fall Risk Details Current Medications: Current Medications Acetaminophen (Acetaminophen 325 Mg Tablet) 650 mg PO Q6H PRN PRN Reason: Pain, Mild (Pain Scale 1-3) Amiodarone HCl (Amiodarone Hcl 200 Mg Tablet) 200 mg PO DAILY [facility] Last Admin: 09/05/21 07:49 Dose: 200 mg Documented by: Apixaban (Apixaban 5 Mg Tablet) 5 mg PO BID [facility] Last Admin: 09/05/21 07:48 Dose: 5 mg Documented by: Atorvastatin Calcium (Atorvastatin Calcium 40 Mg Tablet) 40 mg PO BEDTIME [facility] Last Admin: 09/04/21 20:48 Dose: 40 mg Documented by: Bicalutamide (Bicalutamide 50 Mg Tablet) 50 mg PO DAILY [facility] Last Admin: 09/05/21 07:49 Dose: 50 mg Documented by: Dextrose (Dextrose 50 % 25 Gm/50 Ml Vial) 25 gm IVPUSH Q15M PRN; Protocol PRN Reason: per Hypoglycemia Standing Ord. Glucose (Glucose Gel 15 Gm Gel..Gram.) 15 gm PO Q15M PRN; Protocol PRN Reason: per Hypoglycemia Standing Ord. Hydralazine HCl (Hydralazine Hcl 25 Mg Tablet) 25 mg PO TID [facility]; Protocol Last Admin: 09/05/21 07:49 Dose: 25 mg Documented by: Insulin Human Lispro (Insulin Lispro 100 Unit/Ml 3 Ml Vial) 0 unit SUBCUT QIDACHS [facility]; Protocol Last Admin: 09/05/21 12:32 Dose: 2 unit Documented by: Melatonin (Melatonin 3 Mg Tablet) 6 mg PO BEDTIME PRN PRN Reason: Insomnia Metoprolol Succinate (Metoprolol Succinate Er 12.5 Mg Halftab.Er.24h) 12.5 mg PO DAILY [facility]; Protocol Last Admin: 09/05/21 07:48 Dose: 12.5 mg Documented by: Omeprazole (Omeprazole 20 Mg Capsule.Dr) 20 mg PO DAILY [facility] Last Admin: 09/05/21 07:49 Dose: 20 mg Documented by: Pharmacy Consult (Consult Rx Perform Med Rec) 1 each MISCELLANE ONCE PRN PRN Reason: Consult order Sodium Chloride (0.9 % Sodium Chloride Flush 3 Ml Syringe) 3 ml IVFLUSH QSHIFT [facility] Last Admin: 09/05/21 07:48 Dose: 3 ml Documented by: Torsemide (Torsemide 20 Mg Tablet) 40 mg PO BID@0830,1630 [facility]; Protocol Last Admin: 09/05/21 07:49 Dose: 40 mg Documented by: Vitamin D (Cholecalciferol (Vitamin D3) 25 Mcg Tablet) 50 mcg PO DAILY@1200 [facility] Last Admin: 09/05/21 12:33 Dose: 50 mcg Documented by: <GIOVANA Macias - Last Filed: 09/05/21 12:51> Time Spent With Patient Time: Total time spent is greater than 50% in coordination of care (as documented) at patient's floor/unit and/or counseling patient: <GIOVANA Macias - Last Filed: 09/05/21 12:51> Time with patient: 15 - 24 minutes <GIOVANA Macias - Last Filed: 09/05/21 12:51> Progress Note: Quality Stroke Does the patient have a stroke diagnosis?: No <GIOVANA Macias - Last Filed: 09/05/21 12:51> Procedures Date of Service Date of Service: 09/05/21 <GIOVANA Macias - Last Filed: 09/05/21 12:51>
--- NOTE | 2021-09-05 14:10 | MHC.CLN ---
F/U ATE WELL AT LUNCH TODAY. CONTINUE DIABETIC 2000 KCAL, CARDIAC DIET. CONTINUE GLUCERNA BID (474 KCAL, 20 G PROTEIN).
--- NOTE | 2021-09-05 14:38 | PM.DS ---
DS: Providers Provider Date of Service: 09/05/21 Date of admission: 09/03/21 05:05 Date of discharge: 09/05/21 Primary care physician: Miriam Gray MD Consults: 09/03/21 05:05 Consult to Cardiology Routine Consulting Provider: Eric Richardson Reason for consultation: nstemi Attending physician on discharge: Johnny Venegas Discharging clinician: Miriam Mcneal DS: Diagnosis Discharge Diagnosis (1) Acute non-ST elevation myocardial infarction (NSTEMI): Status: Acute (2) Acute on chronic diastolic (congestive) heart failure: Status: Acute (3) Presence of CardioMEMS HF system: Status: Acute (4) PAF (paroxysmal atrial fibrillation): Status: Acute DS: Summary Hospital Course Hospital Course: From H&P on day of admission 76-year-old male with a past medical history of hypertension, hyperlipidemia, diabetes, CAD, CHF, CKD, diabetic polyneuropathy, paroxysmal AFib on Eliquis, history of NSVT, history of prostate cancer, gout presented to the hospital with a chief complaint of left arm pain. Patient reports that over the past couple days he has been having tingling in his bilateral hands and today he noted to have intermittent episodes of palpitations, left thumb achy pain; reports mild lightheadedness.? Denies any chest pain per se. Denies any fever chills cough. Reports that he has been complaint with his home medications. Denies any GI or symptoms. Review of all other systems is negative except mentioned above ER course: Per ER team patient's EKG was nonischemic, noted to have AFib; troponins elevated more than prior values; follow-up troponin trended down; discussed with Dr. Richardson from Cardiology; admitted to the hospital for further management/cardiology evaluation the morning. NSTEMI Patient presents to the hospital with complaints of left arm pain. Cardiac enzymes were checked and were elevated. They have been elevated in the past. He was evaluated by Cardiology who recommended to proceed with nuclear stress test. He was continued on full anticoagulation with Eliquis, statin, metoprolol. Last echo from 07/30/2020 shows EF 50-55%, grade 3 diastolic dysfunction, mild LVH, [id number] MR Nuclear stress test showed mild intensity ischemia of the lateral, mid and apical inferolateral basal and mid inferior wall. Cardiology recommended to continue current management and discharge the patient home with plan for outpatient follow-up and possible cardiac catheterization. Currently he is chest pain-free. Acute on chronic HFpEF Patient initially given 1 dose of IV Lasix. No heart failure symptoms. CardioMEMS systems reading of 13, patient euvolemic. Patient continued on home dose of torsemide. No changes were made to his medications. Time Spent with Patient Time attestation: Total time spent providing and/or coordinating discharge services: Discharge coordination time: Greater than 30 minutes Quality: Stroke Does the patient have a stroke diagnosis?: No Physical Exam Vital Signs: Vital Signs: Last Vital Signs Temp 97.5 F 09/05/21 11:58 Pulse 75 09/05/21 11:58 Resp 18 09/05/21 11:58 BP 112/57 L 09/05/21 11:58 Pulse Ox 98 09/05/21 11:58 Body Mass Index 26.9 Const: General: comfortable, no acute distress, alert and awake Nutritional Appearance: well nourished Orientation/consciousness: patient oriented x3 HENMT: Head: Yes normocephalic and Yes atraumatic Eyes: Sclerae: sclerae normal Pupils: Equal, round and reactive pupils present Resp: Effort & Inspection: normal respiratory effort and no respiratory distress Cardio: Rate: regular rate Rhythm: regular rhythm GI: Palpation (GI): Soft to palpation and nontender Neuro: General: patient oriented x3 Cranial nerves: Yes CN's II-XII intact bilaterally, Yes Equal, round and reactive pupils present and Yes Bilaterally intact EOM present Extrem: Other: no leg edema DS: Data Data Completed and Pending Completed studies during hospitalization [Text1]: Procedures Zoroastrianism of Cardiac Rhythm, Single (05/01/21) Labs on day of discharge: Laboratory Results - last 24 hr 09/04/21 09/04/21 09/05/21 17:02 20:14 05:56 Sodium 142 Potassium 3.4 Chloride 98 Carbon Dioxide 32 H Anion Gap 15 BUN 69 H Creatinine 2.48 H Estim Creat Clear Calc 22.7 Estimated GFR 26 POC Glucose 198 H 331 H Random Glucose 127 H Calcium 9.3 09/05/21 09/05/21 07:37 11:57 Sodium Potassium Chloride Carbon Dioxide Anion Gap BUN Creatinine Estim Creat Clear Calc Estimated GFR POC Glucose 125 H 175 H Random Glucose Calcium Discharge Plan Discharge Patient Disposition: Home, Self-Care Discharge Diagnosis: NSTEMI Referrals: Miriam Gray MD [Primary Care Provider] - 1 Week Eric Richardson MD [Physician] - 1 Week Discharge Medications: Continued atorvastatin 40 mg tablet 40 mg PO QPM RF: 0 amiodarone 200 mg Tablet 200 mg PO DAILY RF: 0 omeprazole 20 mg Capsule,Delayed Release(Dr/Ec) 20 mg PO DAILY RF: 0 Pulmicort Flexhaler 90 mcg/actuation aerosol powdr breath activated 2 puff inhalation BID RF: 0 cholecalciferol (vitamin D3) [Vitamin D3] 50 mcg (2,000 unit) Capsule 50 mcg PO QNOON RF: 0 Eliquis 5 mg Tablet 5 mg PO BID RF: 0 Trulicity 1.5 mg/0.5 mL pen injector 1.5 mg subcut QWEEK RF: 0 bicalutamide 50 mg Tablet 50 mg PO DAILY Qty: 30 RF: 0 hydralazine 25 mg tablet 1 tab PO TID RF: 0 metoprolol succinate 25 mg tablet extended release 24 hr 0.5 tab PO DAILY RF: 0 insulin lispro [Humalog KwikPen Insulin] 100 unit/mL insulin pen 18 - 22 unit subcut TID RF: 0 (DME) pen needle, diabetic [UltiCare Pen Needle] 31 gauge x 5/16 needle subcut 5XD RF: 0 (DME) lancets [TRUEplus Lancets] 33 gauge misc MISCELLANEOUS QID RF: 0 torsemide 20 mg tablet 40 mg PO BID RF: 0 melatonin 3 mg tablet 1 tab PO BEDTIME PRN (Reason: insomnia) RF: 0 docusate sodium 100 mg capsule 1 cap PO BID PRN (Reason: Constipation) RF: 0 (DME) blood sugar diagnostic Strip See Rx Instructions ea Not Applicable QID Qty: 10 RF: 0 Discharge Orders: Discharge Order (Routine); Ordered 09/05/21 Ordered By: Miriam Mcneal Activity on Discharge: No heavy lifting Stand Alone Forms: Patient Portal Discharge page Care Plan Goals: stay healthy and out of the hospital Health Concerns: NSTEMI/heart disease Plan of Treatment: Abnormal stress test. Call to schedule follow up appointment with cardiology to determine need for further testing. Assessment: See discharge summary
[2021-09-05 15:06] VITALS: BP 117/63; PULSE 80; RESP 18; TEMP 36.4; O2SAT 97
== END 2021-09-05 17:11 | disposition home or self-care (01) | DRG 280 ==
LOC: HO.ED 09-03 03:13 → HO.EDOVER 09-03 05:12 → HO.ISO 09-04 07:33 → HO.IMC 09-04 13:15 → HO.S3 09-04 14:38 → HO.IMC 09-04 18:16 → HO.S3 09-04 18:17
PROVIDERS: Nurse Practitioner Acute Care; Physician Assistant; Admitting Provider Hospitalist; Emergency Provider Emergency Medicine Emergency Medical Services; PCP Family Medicine; Visit Provider Physician Assistant Medical
DX: I21.4 Non-ST elevation (NSTEMI) myocardial infarction (principal); I50.33 Acute on chronic diastolic (congestive) heart failure; I13.0 Hypertensive heart and chronic kidney disease with heart failure and stage 1 through stage 4 chronic kidney disease, or unspecified chronic kidney disease; E11.42 Type 2 diabetes mellitus with diabetic polyneuropathy; I25.10 Atherosclerotic heart disease of native coronary artery without angina pectoris; C61 Malignant neoplasm of prostate; E87.6 Hypokalemia; Z20.822 Contact with and (suspected) exposure to COVID-19; I48.0 Paroxysmal atrial fibrillation; Z87.891 Personal history of nicotine dependence; Z79.4 Long term (current) use of insulin; Z79.01 Long term (current) use of anticoagulants; Z79.899 Other long term (current) drug therapy; E11.22 Type 2 diabetes mellitus with diabetic chronic kidney disease; N18.30 Chronic kidney disease, stage 3 unspecified
CPT/HCPCS: 36415; 71045; 78452; 80048; 80076; 82947; 83735; 83880; 84484; 85025; 87635; 93005; 93017; 94660; 99202; 99285; A9500; J0280; J2785; Q0163

== ENCOUNTER 2021-09-16 16:34 | Inpatient (IN) | payer MEDICARE, SELFPAY ==
--- NOTE | ~2021-09-16 | XR_ITS ---
EXAMINATION: XR CHEST CLINICAL INFORMATION: Shortness of breath. COMPARISON: Chest radiograph dated from 09/03/2021. TECHNIQUE: AP view of the chest was obtained. FINDINGS: Unchanged appearance of the cardiomediastinal silhouette with similar positioning of a cardiomems device. Multiple new hazy opacities bilaterally. There is blunting of both costophrenic angles which may be due to pleural thickening or trace pleural effusion. No pneumothorax. No acute osseous findings. XR/XR chest 1V IMPRESSION: Multifocal airspace opacities are worrisome for a multifocal infection in the appropriate clinical context. Suspect trace amount of bilateral pleural fluid. Recommend close follow-up to ensure resolution.
--- NOTE | ~2021-09-16 | XR_ITS ---
EXAMINATION: XR SHOULDER, LEFT CLINICAL INFORMATION: Pain COMPARISON: Previous chest x-ray and chest CT from yesterday TECHNIQUE: AP external rotation, Grashey, scapular Y, and axillary views of the left shoulder. FINDINGS: Bone alignment is normal. No fracture or dislocation is seen. The glenohumeral joint is normal. There is mild arthritis at the acromioclavicular joint. There are undersurface acromial osteophytes. Soft tissues are unremarkable. There is a small sclerotic lesion in the left fourth rib probably representing a bone island. XR/XR shoulder LT min 2V IMPRESSION: Mild arthritis.
--- NOTE | ~2021-09-16 | CT_ITS ---
EXAMINATION: CT CHEST WITHOUT CONTRAST CLINICAL INFORMATION: Cardiac heart failure. Shortness of breath. COMPARISON: CT chest dated from 09/16/2021. TECHNIQUE: Multidetector volumetric CT imaging of the chest was done. Axial MIP volume rendering provided. Sagittal and coronal reformatted images were obtained. This CT examination was performed using dose optimization techniques as appropriate, variously including the following: *Automated exposure control *Adjustment of mA and/or kV according to patient size (this includes techniques or standardized protocols for targeted exams where dose is matched to indication/reason for exam; i.e. extremities or head) *Use of iterative reconstruction technique DLP: 6.47 mGy-cm FINDINGS: LUNGS: There are new and increase airspace opacities in both upper lobes with a somewhat perihilar distribution. There is redemonstration of more subtle airspace opacity in the left lower lobe as visualized on image 148 of series 10. There are also increased irregular and somewhat platelike opacities in the right lower lobe. A moderate sized right pleural effusion is stable. There is a small amount of left-sided pleural fluid, also similar to prior. There are a few scattered subcentimeter pulmonary nodules some of which are calcified without significantly changed. There is a background of mild centrilobular emphysema No pneumothorax. MEDIASTINUM: Mild cardiomegaly with trace amount of pericardial fluid. Coronary calcifications and atherosclerotic disease of the thoracic aorta which is of normal diameter. There is redemonstration of several enlarged mediastinal lymph nodes without significant change. For example, a 1.3 cm in maximum short axis right pretracheal lymph node on image 24 of series 7. There is also likely bilateral prominent hilar lymph nodes, not significantly changed and suboptimally delineated in the absence of intravenous contrast. On coronal images, there is redemonstration of numerous prominent lymph nodes in the thoracic inlet and prevascular region without significant change. Normal appearance of the thyroid gland. AXILLA: A 3.7 x 2.9 cm well delineated and partially fatty mass in the left axilla (image 17 of series 7) is unchanged since 2017. UPPER ABDOMEN: Unchanged fullness of both adrenal glands. Trace amount of ascites. OSSEOUS STRUCTURES: No acute or aggressive osseous abnormalities. A sclerotic lesion in the left fourth rib is stable since 2017. Thoracic spondylosis. Degenerative changes in the right greater than left glenohumeral joints. CT/CT chest wo con IMPRESSION: 1. Increased and new airspace opacities in the upper lobes with a somewhat perihilar distribution which can be seen with bronchopneumonia, atypical viral pneumonia and pulmonary edema. 2. Mildly increase compression atelectasis/consolidation at the right lung base. 3. Stable pleural effusions. 4. There is a background of mild centrilobular emphysema. 5. There are a few bilateral subcentimeter pulmonary nodules which are likely reactive in nature. This should be follow-up to ensure resolution. 6. Stable lymphadenopathy.
--- NOTE | ~2021-09-16 | NM_ITS ---
EXAMINATION: NM LUNG IMAGE PERFUSION CLINICAL INFORMATION: Pulmonary hypertension. Dyspnea. Pneumonia. Concern for pulmonary embolism. COMPARISON: CT chest September 25, 2021. Chest x-ray September 25, 2021 TECHNIQUE: 4 mCi of technetium 99m MAA was injected intravenously. Images obtained of the lungs in multiple projections. FINDINGS: There are focal segmental perfusion defects in the upper lobes bilaterally that correlates to the airspace opacities seen on CT chest September 25, 2021. These are matching defects therefore. There are no mismatch perfusion defects. This exam is low probability of pulmonary embolism. NM/NM pul perfusion IMPRESSION: Low probability of pulmonary embolism.
--- NOTE | ~2021-09-16 | XR_ITS ---
EXAMINATION: XR CHEST CLINICAL INFORMATION: Follow-up heart failure COMPARISON: Previous chest x-ray and chest CT 09/16/2021 TECHNIQUE: 2 views of the chest were obtained. FINDINGS: The cardiac silhouette is enlarged. There is a Cardiomems device projecting over the left hilum that appears unchanged. There is increasing right-sided airspace disease. Differential would include pneumonia and pulmonary edema. The left lung is clear. There are small bilateral pleural effusions, right greater than left, not appreciably changed. There are degenerative changes of the spine. XR/XR chest 2V IMPRESSION: Increasing right-sided airspace disease. Differential would include pneumonia and pulmonary edema. Stable enlargement of the cardiac silhouette. Small bilateral pleural effusions, right greater than left, not appreciably changed.
--- NOTE | ~2021-09-16 | XR_ITS ---
EXAMINATION: XR CHEST CLINICAL INFORMATION: CHF COMPARISON: CT chest noncontrast 09/25/2021, 09/16/2021, chest radiographs 09/18/2021, 09/16/2021. TECHNIQUE: 2 views of the chest were obtained. FINDINGS: Cardiac monitoring device seen overlying left hilum similar to prior see. There is even distribution vascularity with perivascular cuffing and subtle bilateral perihilar edema. There is no peripheral lobar or segmental airspace consolidation. Small bilateral effusions are present, slightly greater on the right. XR/XR chest 2V IMPRESSION: Mild bilateral perihilar edema with small bilateral effusions, greater on right.
--- NOTE | ~2021-09-16 | CT_ITS ---
EXAMINATION: CT CHEST WITHOUT CONTRAST CLINICAL INFORMATION: Shortness of breath. COMPARISON: Chest x-ray 09/16/2021. CT of the chest 09/23/2017. TECHNIQUE: Multidetector volumetric CT imaging of the chest was done. Axial MIP volume rendering provided. Sagittal and coronal reformatted images were obtained. This CT examination was performed using dose optimization techniques as appropriate, variously including the following: *Automated exposure control. *Adjustment of mA and/or kV according to patient size (this includes techniques or standardized protocols for targeted exams where dose is matched to indication/reason for exam; i.e. extremities or head). *Use of iterative reconstruction technique. DLP: 239 mGy-cm FINDINGS: LUNGS: Scattered small ill-defined multifocal airspace opacities in both lungs involving all lobes. MEDIASTINUM: Heart size is enlarged. No pericardial effusion. There is no aneurysm of the aorta. There are vascular calcifications of the aorta. There are a few shotty lymph nodes. Largest in the pretracheal retrovascular space at the level of the renee measuring 1 cm. There is no bulky lymphadenopathy. Thyroid gland is normal. PLEURA: Moderate volume right pleural effusion and small dependent left pleural effusion. AXILLA: There is a heterogeneous smooth bordered fat-containing mass lesion in the left axillary soft tissues measuring 5.2 x 3.4 x 2.4 cm. This is stable in appearance since prior CAT scan of 09/23/2017. This is a benign lesion, therefore. UPPER ABDOMEN: Small volume of abdominal ascites around the liver. No focal lesions in the visualized portions of liver, spleen, pancreas, kidneys. There is fullness of the right and left adrenal gland, stable since prior CAT scan of 2017. OSSEOUS STRUCTURES: Multilevel degenerative spondylosis of the spine. CT/CT chest wo con IMPRESSION: 1. Scattered multifocal bilateral airspace opacities likely inflammatory infectious in etiology. Imaging features can be seen with COVID-19 pneumonia. Although these features are nonspecific and can occur with a variety of infectious and noninfectious processes. 2. Bilateral pleural effusions. 3. Small volume of abdominal ascites in the right upper quadrant. 4. Cardiomegaly. 5. Stable left axillary lesion unchanged since 2017 consistent with a benign finding. 6. Stable fullness of the adrenal glands since 2017.
--- NOTE | ~2021-09-16 | US_ITS ---
EXAMINATION: US RETROPERITONEAL LIMITED (RENAL ONLY) CLINICAL INFORMATION: Renal obstruction.. COMPARISON: Ultrasound of abdomen July 17, 2021 TECHNIQUE: Grayscale ultrasound of the kidneys and color Doppler exam of kidneys performed. FINDINGS: RIGHT KIDNEY: 9.5 x 4.1 x 4.5 cm (SAG x AP x TRV). The kidney is normal in size, contour, and echogenicity. Renal cortical thickness is normal. No calculi or suspicious focal parenchymal lesions. There is an exophytic anechoic simple cyst at the midpole measuring 1.3 cm. No follow-up imaging is recommended for simple renal cyst. No hydronephrosis. LEFT KIDNEY: 10 x 5.4 x 4.1 cm (SAG x AP x TRV). The kidney is normal in size, contour, and echogenicity. Renal cortical thickness is normal. No calculi or focal parenchymal lesions. No hydronephrosis. US/US renal BI IMPRESSION: Normal ultrasound of the kidneys.
[2021-09-16 16:48] VITALS: BP 108/59; PULSE 98; RESP 16; TEMP 37.2; O2SAT 99; BMI 25.7
[2021-09-16 17:14] VITALS: BP 109/62; PULSE 95; RESP 19; TEMP 36.9; O2SAT 99
--- NOTE | 2021-09-16 17:48 | ECG_ITS ---
Test Reason : DYSPNEA Blood Pressure : / mmHG Vent. Rate : 092 BPM Atrial Rate : 092 BPM P-R Int : 140 ms QRS Dur : 104 ms QT Int : 366 ms P-R-T Axes : 117 -85 089 degrees QTc Int : 452 ms Possible Junctional rhythm (no P-waves found) Left anterior fascicular block Intra-ventricular conduction delay Low voltage QRS Cannot rule out Anterior infarct , age undetermined Abnormal ECG Atrial fibrillation is no longer Present R-R interval is normal Referred By: Yamilka Caceres Electronically Signed By:SARAH HORTON MD
--- NOTE | 2021-09-16 17:49 | ED_ITS ---
HPI - SOB/Dyspnea General Chief Complaint: Dyspnea Stated Complaint: SoB? Time Seen by Provider: 09/16/21 17:37 History of Present Illness HPI Narrative: Patient is a 76-year-old male with a history of NSTEMI. History of having shortness of breath. Patient has a history of congestive heart failure with preserved EF. History of atrial fibrillation currently on Eliquis. Presented with having been on furosemide 40 mg p.o. b.i.d.. He was in the hospital for the NSTEMI earlier this month. Patient had a stress test which he failed. Family complained patient been getting more short of breath. No cough and no congestion or upper respiratory symptoms. No chest pain or diaphoresis. Patient is from home. Leg swelling has been about the same. Patient was seen by Cardiology yesterday. Told to go home follow-up on an outpatient basis. Claims his symptoms has been ongoing not getting any better hence presents to the emergency department. No diaphoresis. No fever no chills. No history of orthopnea. No paroxysmal nocturnal dyspnea. When ambulating patient get exertional dyspnea. Approximately the same as prior. Related Data Home Medications Medication Instructions Recorded Confirmed blood sugar diagnostic #10 ea 05/13/21 09/03/21 amiodarone 200 mg tablet 200 mg PO DAILY@1200 08/23/21 09/16/21 apixaban 5 mg tablet (Eliquis) 5 mg PO BID 08/23/21 09/16/21 atorvastatin 40 mg tablet 40 mg PO BEDTIME 08/23/21 09/16/21 budesonide 90 mcg/actuation breath 2 puff INHALATION BID 08/23/21 09/16/21 activated powder inhaler (Pulmicort Flexhaler) cholecalciferol (vitamin D3) 50 50 mcg PO DAILY@1200 08/23/21 09/16/21 mcg (2,000 unit) capsule (Vitamin D3) dulaglutide 1.5 mg/0.5 mL 1.5 mg SUBCUT WE 08/23/21 09/16/21 subcutaneous [facility] omeprazole 20 mg capsule,delayed 20 mg PO DAILY 08/23/21 09/16/21 release docusate sodium 100 mg capsule 1 cap PO BID PRN 09/03/21 09/16/21 hydralazine 25 mg tablet 1 tab PO TID 09/03/21 09/16/21 insulin lispro 100 unit/mL 17 unit SUBCUT TID 09/03/21 09/16/21 subcutaneous pen (Humalog KwikPen (U-100) Insulin) lancets 33 gauge (TRUEplus Lancets) 09/03/21 09/03/21 melatonin 3 mg tablet 1 tab PO BEDTIME PRN 09/03/21 09/16/21 furosemide 20 mg tablet 20 mg PO DAILY PRN 09/16/21 09/16/21 furosemide 20 mg tablet 40 mg PO BID 09/16/21 09/16/21 insulin glargine U-300 conc 300 17 unit SUBCUT BEDTIME 09/16/21 09/16/21 unit/mL (1.5 mL) subcutaneous pen (Toujeo SoloStar U-300 Insulin) potassium chloride 20 mEq 2 tab PO DAILY@1200 09/16/21 09/16/21 tablet,extended release(part/cryst) torsemide 20 mg tablet 20 mg PO DAILY@1200 09/16/21 09/16/21 torsemide 20 mg tablet 40 mg PO DAILY 09/16/21 09/16/21 Previous Rx's Medication Instructions Recorded bicalutamide 50 mg tablet 50 mg PO DAILY #30 tab 08/29/21 pen needle, diabetic 31 gauge x #200 ea 09/16/2104/06 (UltiCare Pen Needle) Allergies Allergy/AdvReac Type Severity Reaction Status Date / Time No Known Allergies Allergy Verified 09/03/21 08:08 [No Known Allergies*] Review of Systems Review of Systems: Positive shortness of breath No chest pain or diaphoresis No cough no congestion or upper respiratory symptoms All system reviewed otherwise negative [facility] Past Medical History Attestation statement: The following information was validated with the patient. Source: unable to obtain Medical History CAD (coronary artery disease) Cardiomyopathy CKD (chronic kidney disease) stage 3, GFR 30-59 ml/min COVID-19 vaccine series completed Diabetic polyneuropathy associated with type 2 diabetes mellitus Dyslipidemia Essential hypertension Heart failure with preserved ejection fraction History of cardioversion History of COVID-19 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 Obesity (BMI 30-39.9) SRINIVASA (obstructive sleep apnea) Presence of CardioMEMS HF system Surgical History Hx of cardiac catheterization Hx of colonoscopy Family History Family History Father Heart disease Diabetes mellitus Mother Diabetes mellitus Social History Social History Household Members: Spouse Housing: Apartment Are you a primary urgent care nurse practitioner to a significant other at home: No Do you presently have visiting nurse or other home services: No Alcohol intake: never Patient Tobacco Use Status: Former Tobacco user Quit Date: 1979 Tobacco use type: Cigarette Years Smoked: 33 e-Cigarette/Vaping Use: Never Used Use of substances other than those prescribed or required for medical reasons: No Advance Directives: No Advance Directives Information Provided: Yes Advance Directives Date on File: 08/23/21 service: No Current occupational status: unemployed and retired Physical Exam Vital Signs: Vital Signs: Last Vital Signs Temp 97.9 F 09/16/21 21:32 Pulse 93 09/16/21 21:32 Resp 22 H 09/16/21 21:32 BP 97/62 09/16/21 21:32 Pulse Ox 99 09/16/21 21:32 Body Mass Index 25.7 Appearance: Alert. Oriented X3. No acute distress. Eyes: Pupils equal, round and reactive to light. ENT: Pharynx normal. Neck: Normal inspection. Neck supple. No lymph nodes noted. No crepitus CVS: Normal heart rate and rhythm. Pulses normal. Normal S1 and S2 Respiratory: No respiratory distress. Breath sounds normal. No Wheezing. No rales Abdomen: Soft and nontender. No rigidity. No distention. good BS x4 Skin: Skin warm and dry. Normal skin color. Normal skin turgor. Extremities: 2+ lower extremity edema. Neurovascular intact to all extremities. No Lacerations. No Rash Neuro: Oriented X 3. No motor deficit. No sensory deficit. Moving all extermities. No slurred speech MDM - SOB/Dyspnea MDM Narrative Medical decision making narrative: Patient's chest x-ray showed nonspecific infiltrate white count is 11. BUN and creatinine elevated consistent with having acute on chronic renal insufficiency. Patient's BNP however was 1000 a bout baseline. Per cardiology's note 1400 is about where patient sits. Patient able to lie flat. However is in the fragile state health. A CT scan of the chest was done. There is nonspecific infiltrates noted. Patient's COVID test was negative. Patient's is on Eliquis unlikely to have PE. Given patient's history of NSTEMI. Will admit for further evaluation. Less likely patient has coronary disease as patient's troponins in the 400 range 2 sets of troponin were about the same. Patient's EKG showed a sinus pattern heart rate was 90 PA QRS QT within normal limits is nonspecific T-wave flattening noted. There is no significant changes from prior. Patient's case discussed with hospitalist team will admit for further evaluation Medical Records Attestation: I reviewed the patient's medical records. Lab Data Attestation: I reviewed the patient's lab results. Result diagrams: 09/16/21 18:28 09/16/21 18:28 Labs: Lab Results 09/16/21 09/16/21 09/16/21 Range/Units 18:17 18:28 18:28 WBC 11.0 H (4.8-10.8) X10*3/uL RBC 3.95 L (4.60-5.80) X10*6/uL Hgb 10.6 L (14.0-18.0) g/dl Hct 33.8 L (42-52) % MCV 85.6 (80-98) fL MCH 26.8 L (27.0-33.0) pg MCHC 31.4 (31.0-36.0) g/dl RDW 17.2 H (11.0-16.0) % Plt Count 271 (160-400) X10*3/uL MPV 10.9 (9.4-12.4) fL Immature Gran % (Auto) 0.4 (0.0-0.4) % Neut % (Auto) 76.5 H (45-73) % Lymph % (Auto) 9.1 L (20-40) % [place] % (Auto) 11.3 H (2-11) % Eos % (Auto) 2.2 (0-4) % Baso % (Auto) 0.5 (0-2) % Lymph # (Auto) 1.0 L (1.2-4.9) X10*3/uL [place] # (Auto) 1.2 (0.1-1.2) X10*3/uL Eos # (Auto) 0.2 (0.0-0.4) X10*3/uL Baso # (Auto) 0.1 (0.0-0.2) X10*3/uL Abs Immat Gran (auto) 0.04 H (0.00-0.03) X10*3/uL Absolute Neuts (auto) 8.4 H (2.0-8.3) X10*3/uL Absolute Nucleated RBC 0.000 (0.0-0.012) X10*3/uL Nucleated RBC % (auto) 0.0 (0.0-0.2) /100WBC Sodium 135 (135-145) mmol/L Potassium 4.5 D (3.3-5.1) mmol/L Chloride 94 L (96-108) mmol/L Carbon Dioxide 29 (22-29) mmol/L Anion Gap 17 (12-20) BUN 86 H* D (9-16) mg/dL Creatinine 2.99 H (0.5-1.4) mg/dL Estim Creat Clear Calc 17.4 Estimated GFR 21 Random Glucose 180 H D (60-115) mg/dL Calcium 8.8 (8.4-10.2) mg/dL Troponin I High Sens (<3.5-35.0) ng/L B-Natriuretic Peptide (<100) pg/mL COVID-19 (KATY) Negative (Negative) COVID-19 Clin Com See Note 09/16/21 09/16/21 Range/Units 18:28 20:41 WBC (4.8-10.8) X10*3/uL RBC (4.60-5.80) X10*6/uL Hgb (14.0-18.0) g/dl Hct (42-52) % MCV (80-98) fL MCH (27.0-33.0) pg MCHC (31.0-36.0) g/dl RDW (11.0-16.0) % Plt Count (160-400) X10*3/uL MPV (9.4-12.4) fL Immature Gran % (Auto) (0.0-0.4) % Neut % (Auto) (45-73) % Lymph % (Auto) (20-40) % [place] % (Auto) (2-11) % Eos % (Auto) (0-4) % Baso % (Auto) (0-2) % Lymph # (Auto) (1.2-4.9) X10*3/uL [place] # (Auto) (0.1-1.2) X10*3/uL Eos # (Auto) (0.0-0.4) X10*3/uL Baso # (Auto) (0.0-0.2) X10*3/uL Abs Immat Gran (auto) (0.00-0.03) X10*3/uL Absolute Neuts (auto) (2.0-8.3) X10*3/uL Absolute Nucleated RBC (0.0-0.012) X10*3/uL Nucleated RBC % (auto) (0.0-0.2) /100WBC Sodium (135-145) mmol/L Potassium (3.3-5.1) mmol/L Chloride (96-108) mmol/L Carbon Dioxide (22-29) mmol/L Anion Gap (12-20) BUN (9-16) mg/dL Creatinine (0.5-1.4) mg/dL Estim Creat Clear Calc Estimated GFR Random Glucose (60-115) mg/dL Calcium (8.4-10.2) mg/dL Troponin I High Sens 485.2 H* D 498.4 H* (<3.5-35.0) ng/L B-Natriuretic Peptide 1088 H (<100) pg/mL COVID-19 (KATY) (Negative) COVID-19 Clin Com Discharge Plan Discharge Clinical Impression: Pneumonia Patient Disposition: Home, Self-Care Prescriptions: No Action (DME) pen needle, diabetic [UltiCare Pen Needle] 31 gauge x 5/16 needle subcut 5XD Qty: 200 RF: 11 atorvastatin 40 mg tablet 40 mg PO BEDTIME RF: 0 amiodarone 200 mg Tablet 200 mg PO DAILY@1200 RF: 0 omeprazole 20 mg Capsule,Delayed Release(Dr/Ec) 20 mg PO DAILY RF: 0 Pulmicort Flexhaler 90 mcg/actuation aerosol powdr breath activated 2 puff inhalation BID RF: 0 cholecalciferol (vitamin D3) [Vitamin D3] 50 mcg (2,000 unit) Capsule 50 mcg PO DAILY@1200 RF: 0 Eliquis 5 mg Tablet 5 mg PO BID RF: 0 Trulicity 1.5 mg/0.5 mL pen injector 1.5 mg subcut WE RF: 0 bicalutamide 50 mg Tablet 50 mg PO DAILY Qty: 30 RF: 0 hydralazine 25 mg tablet 1 tab PO TID RF: 0 insulin lispro [Humalog KwikPen Insulin] 100 unit/mL insulin pen 17 unit subcut TID RF: 0 (DME) lancets [TRUEplus Lancets] 33 gauge misc MISCELLANEOUS QID RF: 0 melatonin 3 mg tablet 1 tab PO BEDTIME PRN (Reason: insomnia) RF: 0 docusate sodium 100 mg capsule 1 cap PO BID PRN (Reason: Constipation) RF: 0 potassium chloride 20 mEq tablet,ER particles/crystals 2 tab PO DAILY@1200 RF: 0 torsemide 20 mg tablet 20 mg PO DAILY@1200 RF: 0 Toujeo SoloStar U-300 Insulin 300 unit/mL (1.5 mL) insulin pen 17 unit subcut BEDTIME RF: 0 torsemide 20 mg tablet 40 mg PO DAILY RF: 0 furosemide 20 mg Tablet 20 mg PO DAILY PRN (Reason: Edema) RF: 0 furosemide 20 mg Tablet 40 mg PO BID RF: 0 (DME) blood sugar diagnostic Strip See Rx Instructions ea Not Applicable QID Qty: 10 RF: 0
[2021-09-16 18:28] VITALS: BP 111/62; PULSE 92; RESP 18; O2SAT 99
[2021-09-16 18:37] LABS: MANUAL DIFF FLAG NO
[2021-09-16 18:40] LABS: Basophils Absolute Auto 0.1 X10*3/uL (0.0-0.2); Basophils Percent Auto 0.5 % (0-2); Eosinophils Absolute Auto 0.2 X10*3/uL (0.0-0.4); Eosinophils Percent Auto 2.2 % (0-4); Hematocrit 33.8 % (42-52); Hemoglobin 10.6 g/dl (14.0-18.0); Imm Gran Abs Auto 0.04 X10*3/uL (0.00-0.03); Imm Gran Pct Auto 0.4 % (0.0-0.4); Lymphocytes Percent Auto 9.1 % (20-40); Mean Corpuscular HGB Conc 31.4 g/dl (31.0-36.0); Mean Corpuscular Hemoglobin 26.8 pg (27.0-33.0); Mean Corpuscular Volume 85.6 fL (80-98); Mean Platelet Volume 10.9 fL (9.4-12.4); Monocytes Absolute Auto 1.2 X10*3/uL (0.1-1.2); Monocytes Percent Auto 11.3 % (2-11); Neutrophils Absolute Auto 8.4 X10*3/uL (2.0-8.3); Neutrophils Percent Auto 76.5 % (45-73); Platelet Count 271 X10*3/uL (160-400); Red Blood Count 3.95 X10*6/uL (4.60-5.80); Red Cell Distribution Width 17.2 % (11.0-16.0)
[2021-09-16 18:48] LABS: COVID-19 Test Negative (Negative); IDNOW Serial# 55D5AD1C
[2021-09-16 19:05] LABS: B Type Natriuretic Peptide 1088 pg/mL (<100); Troponin-I High Sensitivity 485.2 ng/L (<3.5-35.0)
[2021-09-16 19:07] LABS: Anion Gap 17 (12-20); Blood Urea Nitrogen 86 mg/dL (9-16); Calcium 8.8 mg/dL (8.4-10.2); Carbon Dioxide 29 mmol/L (22-29); Chloride 94 mmol/L (96-108); Creatinine Clr Calc Pharmacy 17.4; Estimated Glomerular Filt Rate 21; Glucose Random 180 mg/dL (60-115); Potassium 4.5 mmol/L (3.3-5.1); Sodium 135 mmol/L (135-145)
[2021-09-16 20:46] VITALS: BP 100/62; PULSE 91; RESP 18; TEMP 36.6; O2SAT 99
[2021-09-16 21:11] LABS: Troponin-I High Sensitivity 498.4 ng/L (<3.5-35.0)
[2021-09-16 21:32] VITALS: BP 97/62; PULSE 93; RESP 22; TEMP 36.6; O2SAT 99
[2021-09-16] MEDS: cefEPime HCl 1 GM in 0.9 % Sodium Chloride 50 ML IV (21:48)
--- NOTE | 2021-09-16 22:15 | P.HPHOSP_ITS ---
History of Present Illness Date of Service: 09/16/21 Chief Complaint: SOb 76-year-old male with a past medical history of hypertension, hyperlipidemia, diabetes, CAD, CHF, history of COVID-19 infection, obesity, obstructive sleep apnea, recent admission to the hospital for NSTEMI status post stress test; history of AFib on Eliquis, chronic kidney disease presented to the hospital with a chief complaint of shortness of breath. Patient denies any chest pain palpitations lightheadedness or dizziness. Denies any GI or symptoms. Review of all other systems is negative except mentioned above ER course: Per ER team patient on presentation noted to be in shortness of breath; not in respiratory distress; has coarse lung sounds; CT chest showed multifocal pneumonia; COVID-19 negative; also noted to have moderate right pleural effusion and small left pleural effusion; troponins are elevated; EKG was nonischemic. Admitted to the hospital for further management. [facility] Medical History CAD (coronary artery disease) Cardiomyopathy CKD (chronic kidney disease) stage 3, GFR 30-59 ml/min COVID-19 vaccine series completed Diabetic polyneuropathy associated with type 2 diabetes mellitus Dyslipidemia Essential hypertension Heart failure with preserved ejection fraction History of cardioversion History of COVID-19 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 Obesity (BMI 30-39.9) SRINIVASA (obstructive sleep apnea) Presence of CardioMEMS HF system Family History Father Heart disease Diabetes mellitus Mother Diabetes mellitus Pertinent family history: as above Surgical History Hx of cardiac catheterization Hx of colonoscopy Social History Household Members: Spouse Housing: Apartment Are you a primary hourly caregiver to a significant other at home: No Do you presently have visiting nurse or other home services: No Alcohol intake: never Patient Tobacco Use Status: Former Tobacco user Quit Date: 1979 Tobacco use type: Cigarette Years Smoked: 33 Smoked in Last 30 Days: No e-Cigarette/Vaping Use: Never Used Second Hand Smoke Exposure: No Use of substances other than those prescribed or required for medical reasons: No Currently Displaying Signs/Symptoms of Drug Intoxication Withdrawal: No Any prior treatment program specific to substance use: No Have you been hit, kicked, punched, or otherwise hurt by someone within the past year? If so, by whom?: No Do you feel safe in your current relationship?: Yes Is there a partner from a previous relationship who is making you feel unsafe now?: No Are you made to feel afraid or neglected: No Advance Directives: No Advance Directives Information Provided: Yes Advance Directives Date on File: 08/23/21 Do you have thoughts of harming others: None Do you have a plan to hurt others: No Plan Recently lost weight without trying: No Eating poorly because of decreased appetite: No Nutrition Risks: No Nutritional Risk Poor oral hygiene: No (some natural teeth and partial) service: No Current occupational status: unemployed and retired Meds Allergies Allergy/AdvReac Type Severity Reaction Status Date / Time No Known Allergies Allergy Verified 09/03/21 08:08 [No Known Allergies*] Active Medications: Current Medications Pharmacy Consult (Consult Rx Perform Med Rec) 1 each MISCELLANE ONCE PRN PRN Reason: Consult order Home Medications Medication Instructions Recorded Confirmed Last Taken Type blood sugar diagnostic #10 ea 05/13/21 09/03/21 Unknown History amiodarone 200 mg tablet 200 mg PO DAILY@1200 08/23/21 09/16/21 09/16/21 History apixaban 5 mg tablet (Eliquis) 5 mg PO BID 08/23/21 09/16/21 09/16/21 History atorvastatin 40 mg tablet 40 mg PO BEDTIME 08/23/21 09/16/21 09/15/21 History budesonide 90 mcg/actuation breath 2 puff INHALATION BID 08/23/21 09/16/21 09/16/21 History activated powder inhaler (Pulmicort Flexhaler) cholecalciferol (vitamin D3) 50 50 mcg PO DAILY@1200 08/23/21 09/16/21 09/16/21 History mcg (2,000 unit) capsule (Vitamin D3) dulaglutide 1.5 mg/0.5 mL 1.5 mg SUBCUT WE 08/23/21 09/16/21 09/10/21 History subcutaneous pen injector (Trulicity) omeprazole 20 mg capsule,delayed 20 mg PO DAILY 08/23/21 09/16/21 09/16/21 History release docusate sodium 100 mg capsule 1 cap PO BID PRN 09/03/21 09/16/21 Unknown History hydralazine 25 mg tablet 1 tab PO TID 09/03/21 09/16/21 09/16/21 History insulin lispro 100 unit/mL 17 unit SUBCUT TID 09/03/21 09/16/21 09/16/21 History subcutaneous pen (Humalog KwikPen (U-100) Insulin) lancets 33 gauge (TRUEplus Lancets) 09/03/21 09/03/21 Unknown History melatonin 3 mg tablet 1 tab PO BEDTIME PRN 09/03/21 09/16/21 09/15/21 History furosemide 20 mg tablet 20 mg PO DAILY PRN 09/16/21 09/16/21 Unknown History furosemide 20 mg tablet 40 mg PO BID 09/16/21 09/16/21 09/16/21 History insulin glargine U-300 conc 300 17 unit SUBCUT BEDTIME 09/16/21 09/16/21 09/15/21 History unit/mL (1.5 mL) subcutaneous pen (Toujeo SoloStar U-300 Insulin) potassium chloride 20 mEq 2 tab PO DAILY@1200 09/16/21 09/16/21 09/16/21 History tablet,extended release(part/cryst) torsemide 20 mg tablet 20 mg PO DAILY@1200 09/16/21 09/16/21 09/16/21 History torsemide 20 mg tablet 40 mg PO DAILY 09/16/21 09/16/21 09/16/21 History Physical Exam Vital Signs and Narrative: Vital Signs: Last Vital Signs Temp 97.9 F 09/16/21 21:32 Pulse 93 09/16/21 21:32 Resp 22 H 09/16/21 21:32 BP 97/62 09/16/21 21:32 Pulse Ox 99 09/16/21 21:32 Body Mass Index 25.7 Results Labs CBC and Chem 7: 09/17/21 06:03 09/17/21 06:03 Labs: Laboratory Results - last 24 hr 09/16/21 09/16/21 09/16/21 18:17 18:28 18:28 MCV 85.6 MCH 26.8 L MCHC 31.4 RDW 17.2 H Plt Count 271 MPV 10.9 Immature Gran % (Auto) 0.4 Neut % (Auto) 76.5 H Lymph % (Auto) 9.1 L [place] % (Auto) 11.3 H Eos % (Auto) 2.2 Baso % (Auto) 0.5 Lymph # (Auto) 1.0 L [place] # (Auto) 1.2 Eos # (Auto) 0.2 Baso # (Auto) 0.1 Abs Immat Gran (auto) 0.04 H Absolute Neuts (auto) 8.4 H Absolute Nucleated RBC 0.000 Nucleated RBC % (auto) 0.0 Anion Gap 17 Estim Creat Clear Calc 17.4 Estimated GFR 21 Random Glucose 180 H D Calcium 8.8 Troponin I High Sens B-Natriuretic Peptide COVID-19 (KATY) Negative COVID-19 Clin Com See Note 09/16/21 09/16/21 18:28 20:41 MCV MCH MCHC RDW Plt Count MPV Immature Gran % (Auto) Neut % (Auto) Lymph % (Auto) [place] % (Auto) Eos % (Auto) Baso % (Auto) Lymph # (Auto) [place] # (Auto) Eos # (Auto) Baso # (Auto) Abs Immat Gran (auto) Absolute Neuts (auto) Absolute Nucleated RBC Nucleated RBC % (auto) Anion Gap Estim Creat Clear Calc Estimated GFR Random Glucose Calcium Troponin I High Sens 485.2 H* D 498.4 H* B-Natriuretic Peptide 1088 H COVID-19 (KATY) COVID-19 Clin Com Imaging Radiologist's Impressions: Impressions Chest X-Ray 09/16/21 17:48 IMPRESSION: Multifocal airspace opacities are worrisome for a multifocal infection in the appropriate clinical context. Suspect trace amount of bilateral pleural fluid. Recommend close follow-up to ensure resolution. Chest CT 09/16/21 19:33 IMPRESSION: 1. Scattered multifocal bilateral airspace opacities likely inflammatory infectious in etiology. Imaging features can be seen with COVID-19 pneumonia. Although these features are nonspecific and can occur with a variety of infectious and noninfectious processes. 2. Bilateral pleural effusions. 3. Small volume of abdominal ascites in the right upper quadrant. 4. Cardiomegaly. 5. Stable left axillary lesion unchanged since 2017 consistent with a benign finding. 6. Stable fullness of the adrenal glands since 2017. Assessment and Plan (1) Multifocal pneumonia: Status: Acute (2) Acute kidney injury superimposed on CKD: Status: Acute (3) Chronic heart failure with preserved ejection fraction (HFpEF): Status: Acute (4) Diabetes mellitus: Status: Acute (5) PAF (paroxysmal atrial fibrillation): Status: Acute 76-year-old male with a past medical history of hypertension, hyperlipidemia, diabetes, CAD, CHF, history of COVID-19 infection, obesity, obstructive sleep apnea, recent admission to the hospital for NSTEMI status post stress test; history of AFib on Eliquis, chronic kidney disease presented to the hospital with a chief complaint of shortness of breath. Noted to have multifocal pneumonia on CT chest. Admitted for further management. Multifocal pneumonia: Continue IV vancomycin and Zosyn. COVID-19 negative. Supplemental oxygen p.r.n. DuoNebs p.r.n. Id consult Pleural effusion: Patient has small left-sided and moderate right-sided pleural effusions. Not in respiratory distress. Pulmonology consult. Elevated troponins: Follow-up troponins plateaued. Patient had recent admission for NSTEMI with troponins higher than the current values. Patient currently denies any chest pain. EKG nonischemic. CHF: Patient on torsemide. Cardiology consult Shouldr pain: heat pack; shoulder x ray- pending. Alvaro on CKD: Patient has baseline creatinine around 2.2-2.7. Currently 2.98. Elevated BUN. Nephrology consult. Monitor renal function. Diabetes: Insulin sliding scale. History of AFib: Rate controlled. Continue home Eliquis. Continue home amiodarone. Code status: Full code Quality Stroke Does the patient have a stroke diagnosis?: No VTE Prior VTE?: No VTE Risk Level:: Medical - moderate - high VTE Device Contraindication: Treatment Not Indicated VTE Drug Contraindication: N/A - Med Ordered
--- NOTE | 2021-09-16 22:16 | PHA.MEDREC ---
Pharmacy Consult ? Medication Reconciliation Pharmacy has completed the medication reconciliation. Patient report that Lasix it is not working. I am not confident that patient is taking the medication as prescription. He is also taking 3 mg of melatonin which is not helping his insomnia. Shraddha Munroe, PharmD
--- NOTE | 2021-09-16 22:38 | PHA.PROG ---
Admission Date/Time: September 16, 2021 22:12 Indication: Multifocal Pneumonia Weight in k.771 kg Adjusted body weight in K.44 kg Tiline body weight in K.9 kg Serum Creatinine - Last 168 Hours 09/16/21 18:28 Creatinine 2.99 H Estimated CrCl and GFR - Last 168 Hours 09/16/21 18:28 Estim Creat Clear Calc 17.4 Estimated GFR 21 Vancomycin Loading Dose: 1000 mg Current Vancomycin Dosing Regimen: 500 mg Q24H Date and Time for next Vancomycin Level to be drawn: 09/19 @ 2100 Pharmacist Comments on Vancomycin Plan: Loading dose of vanco 1000 mg to be given 09/16 @ 2230. This is 15 mg/kg instead of 20 mg/kg due to poor renal function, SCr =2.99 Start Maintenance dose vanco 500 mg Q24H om 09/17 @ 2200. Expected AUC 439 with trough of 15.6. Trough to be drawn before 4th dose. Pharmacy will continue to monitor renal function. Pharmacy will adjust dose if renal function imporved or worsens. Shraddha Munroe PharmD Vancomycin dosing will take advantage of [employer] as a clinical decision support tool that uses Bayesian modeling to calculate individual patient's pharmacokinetic parameters and forecast the patient's drug concentration time course with the target goal AUC 24 range of 400 - 600 mg/L/hr.
[2021-09-16] MEDS: Piperacillin Sodium/Tazobactam 2.25 GM in 0.9 % Sodium Chloride 50 ML IV (23:13)
[2021-09-16 23:21] LABS: Appearance Urine CLEAR; Color Urine YELLOW; Glucose Urine UA NEG (NEG); Leukocyte Esterase Urine NEG (NEG); Nitrite Urine NEG (NEG); PH 5.5 (5.0-8.0); Specific Gravity - Urine <= 1.005 (1.005-1.025); UACC Culture Trigger NO; Urine Blood 3+ (NEG); Urine Ketones NEG (NEG); Urine Protein NEG (NEG-TRACE)
[2021-09-16] MEDS: vancomycin HCL 1,000 MG in 0.9 % Sodium Chloride 250 ML 270 MG IV (23:26)
[2021-09-16] MEDS: 0.9 % Sodium Chloride Flush 3 ML SYRINGE IVFLUSH (23:27)
[2021-09-16 23:32] LABS: RBC Urine 30-49 /HPF (0); Squamous Epithelial Cell Urine 1+ /LPF; WBC Urine 0-2 /HPF (0-4)
[2021-09-17] VITALS (8 sets, daily range): BP systolic 95–112; BP diastolic 61–69; PULSE 60–96; RESP 14–18; TEMP 35.8–36.8; O2SAT 95–100; BMI 28.6
--- NOTE | 2021-09-17 | PC.NURSE ---
Pt alert and oriented x4, calm and cooperative. Pt denies pain. Pt states SOB worse with exertion. IV intact. Vitals stable. Pt voided this shift. Pt educated on being admitted. Report given to EUNICE Reeder. Will continue to monitor.
[2021-09-17] MEDS: Acetaminophen 325 MG TABLET 650 MG PO (04:17)
[2021-09-17 06:21] LABS: Basophils Absolute Auto 0.1 X10*3/uL (0.0-0.2); Basophils Percent Auto 0.5 % (0-2); Eosinophils Absolute Auto 0.2 X10*3/uL (0.0-0.4); Eosinophils Percent Auto 1.6 % (0-4); Hematocrit 31.7 % (42-52); Hemoglobin 10.1 g/dl (14.0-18.0); Imm Gran Abs Auto 0.05 X10*3/uL (0.00-0.03); Imm Gran Pct Auto 0.4 % (0.0-0.4); Lymphocytes Absolute Auto 1.1 X10*3/uL (1.2-4.9); Lymphocytes Percent Auto 8.2 % (20-40); MANUAL DIFF FLAG SCAN; Mean Corpuscular HGB Conc 31.9 g/dl (31.0-36.0); Mean Corpuscular Hemoglobin 26.9 pg (27.0-33.0); Mean Corpuscular Volume 84.3 fL (80-98); Mean Platelet Volume 10.8 fL (9.4-12.4); Monocytes Absolute Auto 1.7 X10*3/uL (0.1-1.2); Neutrophils Absolute Auto 10.1 X10*3/uL (2.0-8.3); Neutrophils Percent Auto 76.3 % (45-73); Platelet Count 257 X10*3/uL (160-400); Red Blood Count 3.76 X10*6/uL (4.60-5.80); Red Cell Distribution Width 17.2 % (11.0-16.0); SCAN SMEAR FLAG 1; White Blood Count 13.2 X10*3/uL (4.8-10.8)
[2021-09-17] MEDS: Piperacillin Sodium/Tazobactam 2.25 GM in 0.9 % Sodium Chloride 50 ML IV ×3 (06:24→22:27)
[2021-09-17 06:40] LABS: Anion Gap 14 (12-20); Blood Urea Nitrogen 84 mg/dL (9-16); Carbon Dioxide 32 mmol/L (22-29); Chloride 96 mmol/L (96-108); Creatinine Clr Calc Pharmacy 21.4; Estimated Glomerular Filt Rate 23; Glucose Random 75 mg/dL (60-115); Potassium 4.5 mmol/L (3.3-5.1); Sodium 137 mmol/L (135-145)
[2021-09-17] MEDS: oxyCODONE HCl Immed Release 5 MG TABLET PO (06:54)
[2021-09-17] MEDS: 0.9 % Sodium Chloride Flush 3 ML SYRINGE IVFLUSH ×3 (07:00→21:02)
[2021-09-17 07:07] LABS: SLIDE REVIEW VERIFIED
[2021-09-17 07:50] LABS: Glucose, Whole Blood 70 mg/dL (60-115)
[2021-09-17 09:59] LABS: Glucose, Whole Blood 104 mg/dL (60-115)
--- NOTE | 2021-09-17 10:25 | MHC.CLN ---
NUTRITION ADDED THERAPEUTIC DIABETIC TO DIET ORDER. LAST A1c=9.5 07/18/21. DIET=DIABETIC 1800 KCAL, CARDIAC.
--- NOTE | 2021-09-17 11:18 | HO.PM.IMPN ---
Subjective Subjective Date of Service: 09/17/21 Interval History: Seen in f/u for multifocal pneumonia without hypoxemia, doing better Review of Systems no fever sob no bough Physical Exam Vital Signs: Vital Signs: Last Vital Signs Temp 97.8 F 09/17/21 11:03 Pulse 91 09/17/21 11:03 Resp 18 09/17/21 11:03 BP 100/62 09/17/21 11:03 Pulse Ox 97 09/17/21 11:03 Body Mass Index 28.6 General: AO X 3, no acute distress Resp: CTA bilateral CVS: S1,S2,RRR GI: +BS, NT, no distention Skin: No rash Neuro: motor grossly intact Psych: appropriate affect Objective Data Active Medications Acetaminophen (Acetaminophen 325 Mg Tablet) 650 mg PO Q6H PRN PRN Reason: Pain, Mild (Pain Scale 1-3) Last Admin: 09/17/21 04:17 Dose: 650 mg Documented by: PING Dextrose (Dextrose 50 % 25 Gm/50 Ml Vial) 25 gm IVPUSH Q15M PRN; Protocol PRN Reason: per Hypoglycemia Standing Ord. Glucose (Glucose Gel 15 Gm Gel..Gram.) 15 gm PO Q15M PRN; Protocol PRN Reason: per Hypoglycemia Standing Ord. Piperacillin Sod/Tazobactam (Sod 2.25 gm/ Sodium Chloride) 50 mls @ 100 mls/hr IV Q8H [facility] Last Infusion: 09/17/21 06:58 Dose: 0 mls/hr Documented by: FE Vancomycin HCl 500 mg/ Sodium (Chloride) 110 mls @ 110 mls/hr IV Q24H [facility] Insulin Human Lispro (Insulin Lispro 100 Unit/Ml 3 Ml Vial) 0 unit SUBCUT QIDACHS [facility]; Protocol Last Admin: 09/17/21 07:50 Dose: Not Given Documented by: FE Non-Admin Reason: No Insulin Coverage Melatonin (Melatonin 3 Mg Tablet) 6 mg PO BEDTIME PRN PRN Reason: Insomnia Pharmacy Consult (Consult Rx Perform Med Rec) 1 each MISCELLANE ONCE PRN PRN Reason: Consult order Pharmacy Consult (Consult Rx Vancomycin Dosing) 1 each MISCELLANE DAILY PRN PRN Reason: Consult order Pharmacy Consult (Consult Rx Perform Med Rec) 1 each MISCELLANE ONCE PRN PRN Reason: Consult order Senna (Sennosides 8.6 Mg Tablet) 17.2 mg PO BEDTIME PRN PRN Reason: Constipation Sodium Chloride (0.9 % Sodium Chloride Flush 3 Ml Syringe) 3 ml IVFLUSH QSHIFT [facility] Last Admin: 09/17/21 07:00 Dose: 3 ml Documented by: FE Labs CBC & Chem 7: 09/17/21 06:03 09/17/21 06:03 Labs: Laboratory Results - last 24 hr 09/16/21 09/16/21 09/16/21 18:17 18:28 18:28 MCV 85.6 MCH 26.8 L MCHC 31.4 RDW 17.2 H Plt Count 271 MPV 10.9 Immature Gran % (Auto) 0.4 Neut % (Auto) 76.5 H Lymph % (Auto) 9.1 L [place] % (Auto) 11.3 H Eos % (Auto) 2.2 Baso % (Auto) 0.5 Lymph # (Auto) 1.0 L [place] # (Auto) 1.2 Eos # (Auto) 0.2 Baso # (Auto) 0.1 Abs Immat Gran (auto) 0.04 H Absolute Neuts (auto) 8.4 H Absolute Nucleated RBC 0.000 Nucleated RBC % (auto) 0.0 Smear Tech's Comments Anion Gap 17 Estim Creat Clear Calc 17.4 Estimated GFR 21 POC Glucose Random Glucose 180 H D Calcium 8.8 Troponin I High Sens B-Natriuretic Peptide Urine Color Urine Appearance Urine pH Ur Specific [place] Urine Protein Urine Glucose (UA) Urine Ketones Urine Blood Urine Nitrite Ur Leukocyte Esterase Urine RBC Urine WBC Ur Squamous Epith Cells Urine Bacteria COVID-19 (KATY) Negative COVID-19 Clin Com See Note 09/16/21 09/16/21 09/16/21 18:28 20:41 23:11 MCV MCH MCHC RDW Plt Count MPV Immature Gran % (Auto) Neut % (Auto) Lymph % (Auto) [place] % (Auto) Eos % (Auto) Baso % (Auto) Lymph # (Auto) [place] # (Auto) Eos # (Auto) Baso # (Auto) Abs Immat Gran (auto) Absolute Neuts (auto) Absolute Nucleated RBC Nucleated RBC % (auto) Smear Tech's Comments Anion Gap Estim Creat Clear Calc Estimated GFR POC Glucose Random Glucose Calcium Troponin I High Sens 485.2 H* D 498.4 H* B-Natriuretic Peptide 1088 H Urine Color YELLOW Urine Appearance CLEAR Urine pH 5.5 Ur Specific [place] <= 1.005 Urine Protein NEG Urine Glucose (UA) NEG Urine Ketones NEG Urine Blood 3+ H Urine Nitrite NEG Ur Leukocyte Esterase NEG Urine RBC 30-49 H Urine WBC 0-2 Ur Squamous Epith Cells 1+ Urine Bacteria NONE COVID-19 (KATY) COVID-19 Clin Com 09/17/21 09/17/21 09/17/21 06:03 06:03 07:45 MCV 84.3 MCH 26.9 L MCHC 31.9 RDW 17.2 H Plt Count 257 MPV 10.8 Immature Gran % (Auto) 0.4 Neut % (Auto) 76.3 H Lymph % (Auto) 8.2 L [place] % (Auto) 13.0 H Eos % (Auto) 1.6 Baso % (Auto) 0.5 Lymph # (Auto) 1.1 L [place] # (Auto) 1.7 H Eos # (Auto) 0.2 Baso # (Auto) 0.1 Abs Immat Gran (auto) 0.05 H Absolute Neuts (auto) 10.1 H Absolute Nucleated RBC 0.000 Nucleated RBC % (auto) 0.0 Smear Tech's Comments VERIFIED Anion Gap 14 Estim Creat Clear Calc 21.4 Estimated GFR 23 POC Glucose 70 Random Glucose 75 D Calcium 9.0 Troponin I High Sens B-Natriuretic Peptide Urine Color Urine Appearance Urine pH Ur Specific [place] Urine Protein Urine Glucose (UA) Urine Ketones Urine Blood Urine Nitrite Ur Leukocyte Esterase Urine RBC Urine WBC Ur Squamous Epith Cells Urine Bacteria COVID-19 (KATY) COVID-19 Clin Com 09/17/21 09:55 MCV MCH MCHC RDW Plt Count MPV Immature Gran % (Auto) Neut % (Auto) Lymph % (Auto) [place] % (Auto) Eos % (Auto) Baso % (Auto) Lymph # (Auto) [place] # (Auto) Eos # (Auto) Baso # (Auto) Abs Immat Gran (auto) Absolute Neuts (auto) Absolute Nucleated RBC Nucleated RBC % (auto) Smear Tech's Comments Anion Gap Estim Creat Clear Calc Estimated GFR POC Glucose 104 Random Glucose Calcium Troponin I High Sens B-Natriuretic Peptide Urine Color Urine Appearance Urine pH Ur Specific [place] Urine Protein Urine Glucose (UA) Urine Ketones Urine Blood Urine Nitrite Ur Leukocyte Esterase Urine RBC Urine WBC Ur Squamous Epith Cells Urine Bacteria COVID-19 (KATY) COVID-19 Clin Com Assessment and Plan (1) Pneumonia: Status: Acute (2) Acute kidney injury superimposed on CKD: Status: Acute Assessment and Plan: 76-year-old male with a past medical history of hypertension, hyperlipidemia, diabetes, CAD, CHF, history of COVID-19 infection, obesity, obstructive sleep apnea, recent admission to the hospital for NSTEMI status post stress test; history of AFib on Eliquis, chronic kidney disease presented to the hospital with a chief complaint of shortness of breath.? Noted to have multifocal pneumonia on CT chest.? Admitted for further management. Sepsis due to pneumonia, no severe sepsis, renal failure is chronic and not due to sepsis Multifocal pneumonia without hypoxia, mild increase in WBC , Continue IV vancomycin and Zosyn.? COVID-19 negative. Raising concern of possible changes related to amiodarone Change to PO Augmentin and Doxy tomorrow if continues to do well, without hypoxia Pleural effusion likely parepneumonic effusion, no indication for thoracentesis at this time, treat pna Elevated troponins:? likely from CKD, no chest pain, repeat Shoulder pain:Heat xray, mild arthritis. CKD 3, stable there is NO MORTEZA Diabetes:? Insulin sliding scale. Chronic AFib:? Rate controlled.? Continue home Eliquis.? DC amiodarone for possible pulmonary involvment. Code status:? Full code Quality Stroke Does the patient have a stroke diagnosis?: No VTE Prior VTE?: No VTE Risk Level:: Medical - moderate - high VTE Device Contraindication: Treatment Not Indicated VTE Drug Contraindication: N/A - Med Ordered
[2021-09-17 11:29] LABS: Glucose, Whole Blood 135 mg/dL (60-115)
--- NOTE | 2021-09-17 11:30 | MHC.CM.PN ---
CM MET WITH PT WITH THE ASSISTANCE OF [facility] [facility] REPORTS HE LIVES AT HOME WITH HIS PT REPORTS HE WAS SUPPOSED TO BE GETTING [employer] STARTING LAST WEDNESDAY HOWEVER NO ONE SHOWED UP PT REPORTS HE WAS ALSO EXPECTING SOME DME BUT HAS NOT RECEIVED IT PT REPORTS HE IS NEW TO [facility] AND IS UNSURE WHEN HIS SERVICES WILL BEGIN OR WHAT THEIR PLAN IS PT REPORTS HIS PCP IS RADHA GOODWIN AND HE HAS A HCP ON FILE NAMING HIS , KYRA, HIS AGENT. IMM DELIVERED CURRENT DC PLAN IS HOME WITH RESUMPTION OF [facility] CM SERVICES PT WILL SELF ARRANGE TRANSPORT
[2021-09-17 12:28] LABS: Troponin-I High Sensitivity 417.2 ng/L (<3.5-35.0)
[2021-09-17 13:01] LABS: Creatinine Urine 64.96 mg/dL
[2021-09-17 13:02] LABS: Total Protein Urine Random 11 mg/dL (<12)
[2021-09-17 13:03] LABS: Microalbum/Creatinine Ratio Ur 45.4 ug/mg cr
--- NOTE | 2021-09-17 15:07 | P.CONCA_ITS ---
History of Present Illness History of Present Illness Date of Service: 09/17/21 Requesting physician: Lexx Fisher Chief complaint: CHF Narrative: Pleasant 76 year gentleman was background history of congestive heart failure and chronic kidney disease. He also has paroxysmal atrial fibrillation and has been on anticoagulation along with amiodarone. He is presenting with shortness of breath and CT scan is showing multifocal infiltrates concerning for pneumonia. He has no cough or phlegm. He has no fevers. He has orthopnea as well as lower extremity edema which was worsening. He also complained to our office that he was not being much. Overall he looks volume overloaded. Neck veins are distended and to the angle of jaw. There is some confusion about his home dose of diuretics because it is unclear whether he is taking torsemide or furosemide. [facility] Past Medical History Medical History CAD (coronary artery disease) Cardiomyopathy CKD (chronic kidney disease) stage 3, GFR 30-59 ml/min COVID-19 vaccine series completed Diabetic polyneuropathy associated with type 2 diabetes mellitus Dyslipidemia Essential hypertension Heart failure with preserved ejection fraction History of cardioversion History of COVID-19 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 Obesity (BMI 30-39.9) SRINIVASA (obstructive sleep apnea) Presence of CardioMEMS HF system Family History Family History Father Heart disease Diabetes mellitus Mother Diabetes mellitus Surgical History Surgical History Hx of cardiac catheterization Hx of colonoscopy Social History Social History Household Members: Spouse Housing: Apartment Are you a primary adult daycare coordinator to a significant other at home: No Do you presently have visiting nurse or other home services: No Alcohol intake: never Patient Tobacco Use Status: Former Tobacco user Quit Date: 1979 Tobacco use type: Cigarette Years Smoked: 33 Smoked in Last 30 Days: No e-Cigarette/Vaping Use: Never Used Second Hand Smoke Exposure: No Use of substances other than those prescribed or required for medical reasons: No Currently Displaying Signs/Symptoms of Drug Intoxication Withdrawal: No Any prior treatment program specific to substance use: No Have you been hit, kicked, punched, or otherwise hurt by someone within the past year? If so, by whom?: No Do you feel safe in your current relationship?: Yes Is there a partner from a previous relationship who is making you feel unsafe now?: No Are you made to feel afraid or neglected: No Advance Directives: No Advance Directives Information Provided: Yes Advance Directives Date on File: 08/23/21 Do you have thoughts of harming others: None Do you have a plan to hurt others: No Plan Recently lost weight without trying: No Eating poorly because of decreased appetite: No Nutrition Risks: No Nutritional Risk Poor oral hygiene: No (some natural teeth and partial) service: No Current occupational status: unemployed and retired Meds Allergies Allergy/AdvReac Type Severity Reaction Status Date / Time No Known Allergies Allergy Verified 09/03/21 08:08 [No Known Allergies*] Active Medications: Current Medications Acetaminophen (Acetaminophen 325 Mg Tablet) 650 mg PO Q6H PRN PRN Reason: Pain, Mild (Pain Scale 1-3) Last Admin: 09/17/21 04:17 Dose: 650 mg Documented by: Dextrose (Dextrose 50 % 25 Gm/50 Ml Vial) 25 gm IVPUSH Q15M PRN; Protocol PRN Reason: per Hypoglycemia Standing Ord. Glucose (Glucose Gel 15 Gm Gel..Gram.) 15 gm PO Q15M PRN; Protocol PRN Reason: per Hypoglycemia Standing Ord. Piperacillin Sod/Tazobactam (Sod 2.25 gm/ Sodium Chloride) 50 mls @ 100 mls/hr IV Q8H [facility] Last Infusion: 09/17/21 06:58 Dose: Infused Documented by: Vancomycin HCl 500 mg/ Sodium (Chloride) 110 mls @ 110 mls/hr IV Q24H [facility] Insulin Human Lispro (Insulin Lispro 100 Unit/Ml 3 Ml Vial) 0 unit SUBCUT QIDACHS [facility]; Protocol Last Admin: 09/17/21 11:29 Dose: Not Given Documented by: Melatonin (Melatonin 3 Mg Tablet) 6 mg PO BEDTIME PRN PRN Reason: Insomnia Pharmacy Consult (Consult Rx Perform Med Rec) 1 each MISCELLANE ONCE PRN PRN Reason: Consult order Pharmacy Consult (Consult Rx Vancomycin Dosing) 1 each MISCELLANE DAILY PRN PRN Reason: Consult order Pharmacy Consult (Consult Rx Perform Med Rec) 1 each MISCELLANE ONCE PRN PRN Reason: Consult order Senna (Sennosides 8.6 Mg Tablet) 17.2 mg PO BEDTIME PRN PRN Reason: Constipation Sodium Chloride (0.9 % Sodium Chloride Flush 3 Ml Syringe) [facility] Last Admin: 09/17/21 07:00 Dose: 3 ml Documented by: Home Medications Medication Instructions Recorded Confirmed Last Taken Type blood sugar diagnostic #10 ea 05/13/21 09/03/21 Unknown History amiodarone 200 mg tablet 200 mg PO DAILY@1200 08/23/21 09/16/21 09/16/21 History apixaban 5 mg tablet (Eliquis) 5 mg PO BID 08/23/21 09/16/21 09/16/21 History atorvastatin 40 mg tablet 40 mg PO BEDTIME 08/23/21 09/16/21 09/15/21 History budesonide 90 mcg/actuation breath 2 puff INHALATION BID 08/23/21 09/16/21 09/16/21 History activated powder inhaler (Pulmicort Flexhaler) cholecalciferol (vitamin D3) 50 50 mcg PO DAILY@1200 08/23/21 09/16/21 09/16/21 History mcg (2,000 unit) capsule (Vitamin D3) dulaglutide 1.5 mg/0.5 mL 1.5 mg SUBCUT WE 08/23/21 09/16/21 09/10/21 History subcutaneous pen injector (Trulicity) omeprazole 20 mg capsule,delayed 20 mg PO DAILY 08/23/21 09/16/21 09/16/21 History release docusate sodium 100 mg capsule 1 cap PO BID PRN 09/03/21 09/16/21 Unknown History hydralazine 25 mg tablet 1 tab PO TID 09/03/21 09/16/21 09/16/21 History insulin lispro 100 unit/mL 17 unit SUBCUT TID 09/03/21 09/16/21 09/16/21 History subcutaneous pen (Humalog KwikPen (U-100) Insulin) lancets 33 gauge (TRUEplus Lancets) 09/03/21 09/03/21 Unknown History melatonin 3 mg tablet 1 tab PO BEDTIME PRN 09/03/21 09/16/21 09/15/21 History furosemide 20 mg tablet 20 mg PO DAILY PRN 09/16/21 09/16/21 Unknown History furosemide 20 mg tablet 40 mg PO BID 09/16/21 09/16/21 09/16/21 History insulin glargine U-300 conc 300 17 unit SUBCUT BEDTIME 09/16/21 09/16/21 09/15/21 History unit/mL (1.5 mL) subcutaneous pen (Toujeo SoloStar U-300 Insulin) potassium chloride 20 mEq 2 tab PO DAILY@1200 09/16/21 09/16/21 09/16/21 History tablet,extended release(part/cryst) torsemide 20 mg tablet 20 mg PO DAILY@1200 09/16/21 09/16/21 09/16/21 History torsemide 20 mg tablet 40 mg PO DAILY 09/16/21 09/16/21 09/16/21 History Physical Exam Vital Signs: Vital Signs: Last Vital Signs Temp 97.8 F 09/17/21 11:03 Pulse 91 09/17/21 11:03 Resp 18 09/17/21 11:03 BP 100/62 09/17/21 11:03 Pulse Ox 97 09/17/21 11:03 Body Mass Index 28.6 GENERAL APPEARANCE: in no acute distress, pleasant. NECK: no carotid bruit, elevated JVD to the angle of jaw. SKIN: no suspicious lesions, warm and dry. HEART: no murmurs, regular rate and rhythm. LUNGS: clear to auscultation bilaterally. ABDOMEN: soft, nontender. EXTREMITIES: 1+ edema. PERIPHERAL PULSES: equal. NEUROLOGIC: No gross deficits, AAO X 3 Results Labs and Meds Result diagrams: 09/17/21 06:03 09/17/21 06:03 Lab results: Laboratory Results - last 24 hr 09/16/21 09/16/21 09/16/21 18:17 18:28 18:28 WBC 11.0 H RBC 3.95 L Hgb 10.6 L Hct 33.8 L MCV 85.6 MCH 26.8 L MCHC 31.4 RDW 17.2 H Plt Count 271 MPV 10.9 Immature Gran % (Auto) 0.4 Neut % (Auto) 76.5 H Lymph % (Auto) 9.1 L [place] % (Auto) 11.3 H Eos % (Auto) 2.2 Baso % (Auto) 0.5 Lymph # (Auto) 1.0 L [place] # (Auto) 1.2 Eos # (Auto) 0.2 Baso # (Auto) 0.1 Abs Immat Gran (auto) 0.04 H Absolute Neuts (auto) 8.4 H Absolute Nucleated RBC 0.000 Nucleated RBC % (auto) 0.0 Smear Tech's Comments Sodium 135 Potassium 4.5 D Chloride 94 L Carbon Dioxide 29 Anion Gap 17 BUN 86 H* D Creatinine 2.99 H Estim Creat Clear Calc 17.4 Estimated GFR 21 POC Glucose Random Glucose 180 H D Calcium 8.8 Troponin I High Sens B-Natriuretic Peptide Urine Color Urine Appearance Urine pH Ur Specific [place] Urine Protein Urine Glucose (UA) Urine Ketones Urine Blood Urine Nitrite Ur Leukocyte Esterase Urine RBC Urine WBC Ur Squamous Epith Cells Urine Bacteria U Random Total Protein Urine Creatinine Urine Microalbumin Microalb/Creat Ratio COVID-19 (KATY) Negative COVID-19 Clin Com See Note 09/16/21 09/16/21 09/16/21 18:28 20:41 23:11 WBC RBC Hgb Hct MCV MCH MCHC RDW Plt Count MPV Immature Gran % (Auto) Neut % (Auto) Lymph % (Auto) [place] % (Auto) Eos % (Auto) Baso % (Auto) Lymph # (Auto) [place] # (Auto) Eos # (Auto) Baso # (Auto) Abs Immat Gran (auto) Absolute Neuts (auto) Absolute Nucleated RBC Nucleated RBC % (auto) Smear Tech's Comments Sodium Potassium Chloride Carbon Dioxide Anion Gap BUN Creatinine Estim Creat Clear Calc Estimated GFR POC Glucose Random Glucose Calcium Troponin I High Sens 485.2 H* D 498.4 H* B-Natriuretic Peptide 1088 H Urine Color YELLOW Urine Appearance CLEAR Urine pH 5.5 Ur Specific [place] <= 1.005 Urine Protein NEG Urine Glucose (UA) NEG Urine Ketones NEG Urine Blood 3+ H Urine Nitrite NEG Ur Leukocyte Esterase NEG Urine RBC 30-49 H Urine WBC 0-2 Ur Squamous Epith Cells 1+ Urine Bacteria NONE U Random Total Protein Urine Creatinine Urine Microalbumin Microalb/Creat Ratio COVID-19 (KATY) COVID-19 Clin Com 09/17/21 09/17/21 09/17/21 06:03 06:03 07:45 WBC 13.2 H RBC 3.76 L Hgb 10.1 L Hct 31.7 L MCV 84.3 MCH 26.9 L MCHC 31.9 RDW 17.2 H Plt Count 257 MPV 10.8 Immature Gran % (Auto) 0.4 Neut % (Auto) 76.3 H Lymph % (Auto) 8.2 L [place] % (Auto) 13.0 H Eos % (Auto) 1.6 Baso % (Auto) 0.5 Lymph # (Auto) 1.1 L [place] # (Auto) 1.7 H Eos # (Auto) 0.2 Baso # (Auto) 0.1 Abs Immat Gran (auto) 0.05 H Absolute Neuts (auto) 10.1 H Absolute Nucleated RBC 0.000 Nucleated RBC % (auto) 0.0 Smear Tech's Comments VERIFIED Sodium 137 Potassium 4.5 Chloride 96 Carbon Dioxide 32 H Anion Gap 14 BUN 84 H* Creatinine 2.72 H Estim Creat Clear Calc 21.4 Estimated GFR 23 POC Glucose 70 Random Glucose 75 D Calcium 9.0 Troponin I High Sens B-Natriuretic Peptide Urine Color Urine Appearance Urine pH Ur Specific [place] Urine Protein Urine Glucose (UA) Urine Ketones Urine Blood Urine Nitrite Ur Leukocyte Esterase Urine RBC Urine WBC Ur Squamous Epith Cells Urine Bacteria U Random Total Protein Urine Creatinine Urine Microalbumin Microalb/Creat Ratio COVID-19 (KATY) COVID-[employer] 09/17/21 09/17/21 09/17/21 09:55 11:04 11:44 WBC RBC Hgb Hct MCV MCH MCHC RDW Plt Count MPV Immature Gran % (Auto) Neut % (Auto) Lymph % (Auto) [place] % (Auto) Eos % (Auto) Baso % (Auto) Lymph # (Auto) [place] # (Auto) Eos # (Auto) Baso # (Auto) Abs Immat Gran (auto) Absolute Neuts (auto) Absolute Nucleated RBC Nucleated RBC % (auto) Smear Tech's Comments Sodium Potassium Chloride Carbon Dioxide Anion Gap BUN Creatinine Estim Creat Clear Calc Estimated GFR POC Glucose 104 135 H Random Glucose Calcium Troponin I High Sens 417.2 H* B-Natriuretic Peptide Urine Color Urine Appearance Urine pH Ur Specific [place] Urine Protein Urine Glucose (UA) Urine Ketones Urine Blood Urine Nitrite Ur Leukocyte Esterase Urine RBC Urine WBC Ur Squamous Epith Cells Urine Bacteria U Random Total Protein Urine Creatinine Urine Microalbumin Microalb/Creat Ratio COVID-19 (KATY) COVID-[employer] 09/17/21 09/17/21 09/17/21 12:31 12:32 12:32 WBC RBC Hgb Hct MCV MCH MCHC RDW Plt Count MPV Immature Gran % (Auto) Neut % (Auto) Lymph % (Auto) [place] % (Auto) Eos % (Auto) Baso % (Auto) Lymph # (Auto) [place] # (Auto) Eos # (Auto) Baso # (Auto) Abs Immat Gran (auto) Absolute Neuts (auto) Absolute Nucleated RBC Nucleated RBC % (auto) Smear Tech's Comments Sodium Potassium Chloride Carbon Dioxide Anion Gap BUN Creatinine Estim Creat Clear Calc Estimated GFR POC Glucose Random Glucose Calcium Troponin I High Sens B-Natriuretic Peptide Urine Color Urine Appearance Urine pH Ur Specific [place] Urine Protein Urine Glucose (UA) Urine Ketones Urine Blood Urine Nitrite Ur Leukocyte Esterase Urine RBC Urine WBC Ur Squamous Epith Cells Urine Bacteria U Random Total Protein 11 Urine Creatinine 64.96 63.80 Urine Microalbumin 29.0 Microalb/Creat Ratio 45.4 COVID-19 (KATY) COVID-19 Clin Com Imaging Radiologist's impression: Impressions Chest X-Ray 09/16/21 17:48 IMPRESSION: Multifocal airspace opacities are worrisome for a multifocal infection in the appropriate clinical context. Suspect trace amount of bilateral pleural fluid. Recommend close follow-up to ensure resolution. Chest CT 09/16/21 19:33 IMPRESSION: 1. Scattered multifocal bilateral airspace opacities likely inflammatory infectious in etiology. Imaging features can be seen with COVID-19 pneumonia. Although these features are nonspecific and can occur with a variety of infectious and noninfectious processes. 2. Bilateral pleural effusions. 3. Small volume of abdominal ascites in the right upper quadrant. 4. Cardiomegaly. 5. Stable left axillary lesion unchanged since 2017 consistent with a benign finding. 6. Stable fullness of the adrenal glands since 2017. Shoulder X-Ray 09/17/21 08:04 IMPRESSION: Mild arthritis. Assessment and Plan (1) Multifocal pneumonia: Status: Acute (2) Acute on chronic diastolic (congestive) heart failure: Status: Acute Pleasant 76 gentleman here for shortness of breath. Clinically he is volume overloaded. I am starting him on 80 mg IV b.i.d. Lasix. He is being treated for pneumonia with antibiotics. A chest x-ray can be repeated after diuretics to see if his infiltrates are improving because that will favor heart failure over pneumonia. In any case I think he needs diuretics right now. We will follow along with you. Thank you for allowing me to participate in the care of your patient. Please feel free to contact me if you have any questions. Procedures Date of Service Date of Service: 09/17/21
[2021-09-17 15:47] LABS: Glucose, Whole Blood 204 mg/dL (60-115)
--- NOTE | 2021-09-17 15:47 | CONS_ITS ---
DATE OF SERVICE: 09/17/2021 REASON FOR CONSULTATION: I was asked to see the patient to assist in evaluation and management of the patient's renal dysfunction as reflected by BUN and creatinine of 84 and 2.72 today. In reviewing his records, his creatinines tend to run in the 2.5 to 3.0 range. HISTORY OF PRESENT ILLNESS: In summary, he is a 76-year-old gentleman with multiple chronic medical problems including stage 4 chronic kidney disease, hypertension, hyperlipidemia, diabetes, coronary artery disease, congestive heart failure, obstructive sleep apnea, elevated PSA, suspicious for prostate cancer, who presented to the hospital with increasing shortness of breath and leg swelling. Overall, he is feeling a bit better this morning. In the emergency room, he had imaging studies which showed moderate right pleural effusion and small left pleural effusion, He denies any gross hematuria or dysuria. No fever, sweats, or chills. PAST MEDICAL HISTORY: As outlined above. There is mention made that he has CardioMEMs in place. We will have to track this down to see if this is the case and who follows him for that. As mentioned, he has had coronary artery disease, heart failure with reduced EF and a cardiomyopathy, stage 4 chronic kidney disease; baseline creatinine 2.5 to 3.0, neuropathy from his diabetes, hyperlipidemia, hypertension. There is mention made of heart failure with preserved EF. We will need to track down his prior echo, obesity, obstructive sleep apnea are all listed and elevated PSA. MEDICATIONS: His medications on admission include amiodarone, Eliquis, Lipitor, inhalers, vitamin D, Prilosec, hydralazine, Lasix 40 twice a day, insulin, potassium. He also has torsemide, it is unclear whether he is taking torsemide or the Lasix. Current medications are noted in the MAR. ALLERGIES: HE HAS NO KNOWN DRUG ALLERGIES. SOCIAL HISTORY: Mention made that he is an ex-smoker, having quit many years ago. No alcohol, illicit drug use. Denies taking NSAIDs. FAMILY HISTORY: Notable for diabetes, both the mom and dad. He is not aware of kidney disease in the family. REVIEW OF SYSTEMS: As noted above. PHYSICAL EXAMINATION: VITAL SIGNS: Blood pressure 100/60 with a heart rate in the 90s. HEAD: Atraumatic and normocephalic. Mucous membranes are moist. NECK: Supple. LUNGS: Decreased breath sounds at the bases bilaterally. CARDIAC: Regular rate and rhythm. ABDOMEN: Soft. EXTREMITIES: Show 1 to 2+ edema bilaterally. There is no asterixis. LABORATORY DATA: Labs from today show sodium 137, potassium 4.5, chloride 96, bicarb 32, BUN 84, creatinine 2.7. As mentioned, his serum creatinine going back on electronic medical record, since June his creatinine had been in the 2.5 to 3.0 range. Prior to that, his serum creatinine seemed to range between 1.5 and 2.5. Hemoglobin 10.1, hematocrit 31.7, white blood count 13.2, platelet count 257. He has had urine studies in the past that showed no significant proteinuria, but that was back over year ago. IMPRESSION: A 76-year-old with advanced stage 4 chronic kidney disease, underlying diabetes, hypertension, coronary artery disease, admitted with volume overload. 1. Advanced chronic kidney disease. It appears that he has had progressive loss of renal function over the past 6 months and is now at a new baseline creatinine of 2.5 to 3.0. I suspect this is cardiorenal syndrome as the main culprit. Other possibilities such as obstructive uropathy needs to be ruled out as well as a new acute glomerulonephritis or acute interstitial nephritis, both of which seem unlikely. I was able to track down ultrasound done in June which showed no hydro bilaterally. 2. Hypervolemia. This is multifactorial including his underlying heart failure with preserved EF along with his advanced renal dysfunction and perhaps some dietary indiscretions all contributing. The good news is that he seems to be diuresing on the diuretics. 3. Elevated PSA being followed by Urology. 4. Diabetes. 5. Heart failure with preserved EF. There is mention made today's a CardioMEMs unit in place, although it is unclear to me whether that is the case or not. SUGGESTIONS: At this time include obtain repeat urine studies including urine protein creatinine ratio. Obtain a renal ultrasound. Follow urine function. Avoid nephrotoxins. Protect his nondominant arm for future AV fistula. We will follow the patient closely with the team. MD MERVIN Donohue/MISAEL / [id number]
--- NOTE | 2021-09-17 16:12 | MHC.CM.PN ---
Addendum entered by Josie Leung 09/17/21 16:25: [facility] REFERRAL PLACED IF AGENCY IS UNABLE TO OFFER, ADDITIONAL CHOICES WILL BE OBTAINED AND REFERRAL UPDATED. Original Note: WITH ASSISTANCE OF PET STYLIST, PATIENT FEELS HE NEEDS ASSISTANCE WITH MEDICATION MANAGEMENT. [facility] Steven RN TO BE MADE AWARE AND IF NEEDED, [facility] SERVICES WILL BE ADDED.
[2021-09-17] MEDS: Insulin Lispro 100 UNIT/ML 3 ML VIAL SUBCUT ×2 (16:26→20:58)
[2021-09-17] MEDS: Furosemide 100 MG/10 ML VIAL 80 MG IVPUSH (16:29)
[2021-09-17] MEDS: Albuterol/Iprat 2.5/0.5MG 3 ML AMPUL.NEB INHALE (19:47)
[2021-09-17 20:45] LABS: Glucose, Whole Blood 208 mg/dL (60-115)
[2021-09-17] MEDS: Melatonin 3 MG TABLET 6 MG PO (20:58)
[2021-09-17] MEDS: Sennosides 8.6 MG TABLET 17.2 MG PO (20:58)
[2021-09-17] MEDS: vancomycin HCL 500 MG in 0.9 % Sodium Chloride 100 ML 110 MG IV (21:02)
[2021-09-18] VITALS (7 sets, daily range): BP systolic 102–134; BP diastolic 55–79; PULSE 68–90; RESP 14–17; TEMP 36–36.3; O2SAT 97–99
[2021-09-18] MEDS: diphenhydrAMINE HCL 25 MG TABLET PO (02:34)
[2021-09-18 06:06] LABS: Creatinine Clr Calc Pharmacy 22.3; Estimated Glomerular Filt Rate 24
[2021-09-18] MEDS: Furosemide 100 MG/10 ML VIAL 80 MG IVPUSH ×2 (06:19→17:16)
[2021-09-18] MEDS: Piperacillin Sodium/Tazobactam 2.25 GM in 0.9 % Sodium Chloride 50 ML IV ×3 (06:19→22:25)
[2021-09-18] MEDS: 0.9 % Sodium Chloride Flush 3 ML SYRINGE IVFLUSH ×3 (07:09→23:17)
[2021-09-18 07:26] LABS: Glucose, Whole Blood 67 mg/dL (60-115)
--- NOTE | 2021-09-18 09:42 | PM.PNCARD ---
Subjective Subjective Date of Service: 09/18/21 <GIOVANA Macias - Last Filed: 09/18/21 10:50> 09/18/21 <Dax Novoa MD - Last Filed: 09/18/21 12:24> Principal diagnosis: PNA, Diastolic CHF <GIOVANA Macias - Last Filed: 09/18/21 10:50> Interval history: Cardiology follow up for CHF. Seen today at 0900. Today he reports that he has water in his body. Breathing is not good . Denies pain in chest, abdomen. His leg edema is down some from appearance on admission. Slept OK. No dizziness when getting OOB this am. Ate all of breakfast. Only voiding in small amounts. <GIOVANA Macias - Last Filed: 09/18/21 10:50> Review of Systems Review of Systems as above <GIOVANA Macias - Last Filed: 09/18/21 10:50> Yes all other systems are reviewed and are negative <GIOVANA Macias - Last Filed: 09/18/21 10:50> Physical Exam Vital Signs: Last Vital Signs Temp 97.2 F 09/18/21 07:12 Pulse 90 09/18/21 07:12 Resp 16 09/18/21 07:12 BP 104/62 09/18/21 07:12 Pulse Ox 99 09/18/21 07:12 Body Mass Index 28.6 <GIOVANA Macias - Last Filed: 09/18/21 10:50> Const General: cooperative, no acute distress, alert and awake <GIOVANA Macias - Last Filed: 09/18/21 10:50> Orientation/consciousness: patient oriented x3 <GIOVANA Macias - Last Filed: 09/18/21 10:50> Neck Neck: Yes normal visual inspection and Yes JVD (to near jaw) <GIOVANA Macias - Last Filed: 09/18/21 10:50> Resp Other: Rales noted in each lower lobe <GIOVANA Macias - Last Filed: 09/18/21 10:50> Effort & Inspection: normal respiratory effort, able to speak in complete sentences and not labored <ANTONIO MaciasC - Last Filed: 09/18/21 10:50> Auscultation: no rhonchi and no wheezes <Dona Diez NP - Last Filed: 09/18/21 10:50> Cardio Jugular venous distension: JVD <Dona Diez NP - Last Filed: 09/18/21 10:50> Palpation: normal PMI <Dona Diez NP - Last Filed: 09/18/21 10:50> Rate: regular rate <Dona Diez NP - Last Filed: 09/18/21 10:50> Rhythm: regular rhythm <Dona Diez NP - Last Filed: 09/18/21 10:50> Heart sounds: S1 normal heart sound present and S2 normal heart sound present <Dona Diez NP - Last Filed: 09/18/21 10:50> Peripheral pulses: Peripheral pulses 2+ throughout <Dona Diez NP - Last Filed: 09/18/21 10:50> GI Other: Rounded, nontender <Dona Diez NP - Last Filed: 09/18/21 10:50> Neuro General: patient oriented x3 <ANTONIO aMcias - Last Filed: 09/18/21 10:50> Extrem Other: +1-2 pitting edema to lower legs from mid calf down <Dona Diez NP - Last Filed: 09/18/21 10:50> General: Yes normal to inspection <Dona Diez [facility] - Last Filed: 09/18/21 10:50> Results Labs and Meds Result diagrams: : 09/17/21 06:03 09/18/21 05:32 <Dona Diez NP - Last Filed: 09/18/21 10:50> Lab results: Laboratory Results - last 24 hr 09/17/21 09/17/21 09/17/21 09:55 11:04 11:44 Creatinine Estim Creat Clear Calc Estimated GFR POC Glucose 104 135 H Troponin I High Sens 417.2 H* U Random Total Protein Urine Creatinine Urine Microalbumin Microalb/Creat Ratio 09/17/21 09/17/21 09/17/21 12:31 12:32 12:32 Creatinine Estim Creat Clear Calc Estimated GFR POC Glucose Troponin I High Sens U Random Total Protein 11 Urine Creatinine 64.96 63.80 Urine Microalbumin 29.0 Microalb/Creat Ratio 45.4 09/17/21 09/17/21 09/18/21 15:42 20:42 05:32 Creatinine 2.61 H Estim Creat Clear Calc 22.3 Estimated GFR 24 POC Glucose 204 H 208 H Troponin I High Sens U Random Total Protein Urine Creatinine Urine Microalbumin Microalb/Creat Ratio 09/18/21 07:09 Creatinine Estim Creat Clear Calc Estimated GFR POC Glucose 67 Troponin I High Sens U Random Total Protein Urine Creatinine Urine Microalbumin Microalb/Creat Ratio <GIOVANA Macias - Last Filed: 09/18/21 10:50> Imaging Radiologist's impression: Impressions Renal Ultrasound 09/17/21 15:15 IMPRESSION: Normal ultrasound of the kidneys. <GIOVANA Macias - Last Filed: 09/18/21 10:50> Progress Note: A&P Assessment and plan (1) Acute on chronic diastolic (congestive) heart failure: Status: Acute <GIOVANA Macias - Last Filed: 09/18/21 10:50> Assessment and Plan: Hx of chronic diastolic HF. Last echo 07/30/21 shows EF 50-55%, grade 3 diastolic dysfunction, mild to mod MR. He does have a cardiomems HF monitoring device in place and readings have been elevated recently. There have been issues with diuretic management at home as he uses pill pack from pharmacy and additional diuretics on the side. This admit he presents with increased sob and edema. CT shows multifocal PNA and he is on appropriate antibiotics. On exam he does have evidence of fluid overload and is being diuresed with IV lasix. Fluid balance as of this am is only 100 cc neg. Last known PAD reading was 20mmhg - his goal is 14-15 mmhg. He has been instructed to bring in his Cardiomems pillow from home so that monitoring can be performed while inpt. Will continue to diurese with IV lasix. If no significant response to his dose this am - will plan to give a dose of Metolazone 5mg later today. Continue strict I+O monitoring. Close monitoring of his electrolytes and kidney function. Electrolyte replacement as warranted. He has known CKD, Cr 2.61 this am, was 2.99 on admit. We will follow <GIOVANA Macias - Last Filed: 09/18/21 10:50> (2) Presence of CardioMEMS HF system: Status: Acute <GIOVANA Macias - Last Filed: 09/18/21 10:50> (3) Multifocal pneumonia: Status: Acute <GIOVANA Macias - Last Filed: 09/18/21 10:50> Assessment and Plan: Followed by hospitalist <GIOVANA Macias - Last Filed: 09/18/21 10:50> (4) PAF (paroxysmal atrial fibrillation): Status: Acute <GIOVANA Macias - Last Filed: 09/18/21 10:50> Assessment and Plan: History of paroxysmal atrial fibrillation. Has been suppressed with amiodarone 200 mg daily.? Telemetry monitoring shows sinus rhythm with first-degree AV block, rates 70s to 80s.? No reports of heart palpitations.? He has been on Eliquis for anticoagulation.? No reports of bleeding, Has had hematuria in past. Hgb stable - His amiodarone and Eliquis were not started on admit - Will order them to start now. <GIOVANA Macias - Last Filed: 09/18/21 10:50> (5) Essential hypertension: Status: Acute <GIOVANA Macias - Last Filed: 09/18/21 10:50> Assessment and Plan: Home hydralazine on hold. BPs running on low side. This am 104/62. - will continue to hold at present and plan restart when BP better allows. <GIOVANA Macias - Last Filed: 09/18/21 10:50> (6) CAD (coronary artery disease): Status: Acute <GIOVANA Macias Last Filed: 09/18/21 10:50> Assessment and Plan: NSTEMI earlier this month. Nuclear stress test done 09/03/21 shows: Myocardial perfusion imaging study shows mild intensity ischemia of the lateral, mid and apical inferolateral basal and mid inferior wall with mixed infarction of the inferior, Gated LVEF is 36% with stress and 24% with rest, Transient ischemic dilatation not present. Being medically managed at present time. No reports of chest or arm discomfort at present. Not on aspirin as he is on Eliquis. Restarting Atorvastatin. Hydralazine, BB being held. <GIOVANA Macias - Last Filed: 09/18/21 10:50> Fall Risk Details Current Medications: Current Medications Acetaminophen (Acetaminophen 325 Mg Tablet) 650 mg PO Q6H PRN PRN Reason: Pain, Mild (Pain Scale 1-3) Last Admin: 09/17/21 04:17 Dose: 650 mg Documented by: Albuterol/Ipratropium (Albuterol/Iprat 2.5/0.5mg 3 Ml Ampul.Neb) 3 ml INHALE Q4H PRN PRN Reason: Shortness of Breath/Wheezing Last Admin: 09/17/21 19:47 Dose: 3 ml Documented by: Dextrose (Dextrose 50 % 25 Gm/50 Ml Vial) 25 gm IVPUSH Q15M PRN; Protocol PRN Reason: per Hypoglycemia Standing Ord. Furosemide (Furosemide 100 Mg/10 Ml Vial) 80 mg IVPUSH Q12H [facility]; Protocol Last Admin: 09/18/21 06:19 Dose: 80 mg Documented by: Glucose (Glucose Gel 15 Gm Gel..Gram.) 15 gm PO Q15M PRN; Protocol PRN Reason: per Hypoglycemia Standing Ord. Piperacillin Sod/Tazobactam (Sod 2.25 gm/ Sodium Chloride) 50 mls @ 100 mls/hr IV Q8H [facility] Last Infusion: 09/18/21 06:53 Dose: Infused Documented by: Vancomycin HCl 500 mg/ Sodium (Chloride) 110 mls @ 110 mls/hr IV Q24H [facility] Last Infusion: 09/17/21 22:30 Dose: Infused Documented by: Insulin Human Lispro (Insulin Lispro 100 Unit/Ml 3 Ml Vial) 0 unit SUBCUT QIDACHS [facility]; Protocol Last Admin: 09/18/21 07:12 Dose: Not Given Documented by: Melatonin (Melatonin 3 Mg Tablet) 6 mg PO BEDTIME PRN PRN Reason: Insomnia Last Admin: 09/17/21 20:58 Dose: 6 mg Documented by: Pharmacy Consult (Consult Rx Perform Med Rec) 1 each MISCELLANE ONCE PRN PRN Reason: Consult order Pharmacy Consult (Consult Rx Vancomycin Dosing) 1 each MISCELLANE DAILY PRN PRN Reason: Consult order Pharmacy Consult (Consult Rx Perform Med Rec) 1 each MISCELLANE ONCE PRN PRN Reason: Consult order Senna (Sennosides 8.6 Mg Tablet) 17.2 mg PO BEDTIME PRN PRN Reason: Constipation Last Admin: 09/17/21 20:58 Dose: 17.2 mg Documented by: Sodium Chloride (0.9 % Sodium Chloride Flush 3 Ml Syringe) 3 ml IVFLUSH QSHIFT [facility] Last Admin: 09/18/21 07:09 Dose: 3 ml Documented by: <GIOVANA Macias - Last Filed: 09/18/21 10:50> Time Spent With Patient Time: Total time spent is greater than 50% in coordination of care (as documented) at patient's floor/unit and/or counseling patient: <GIOVANA Macias - Last Filed: 09/18/21 10:50> Time with patient: 25 - 35 minutes <GIOVANA Macias - Last Filed: 09/18/21 10:50> Progress Note: Quality Stroke Does the patient have a stroke diagnosis?: No <GIOVANA Macias - Last Filed: 09/18/21 10:50> Procedures Date of Service Date of Service: 09/18/21 <GIOVANA Macias - Last Filed: 09/18/21 10:50>
--- NOTE | 2021-09-18 10:04 | P.PNIM_ITS ---
Subjective Subjective Date of Service: 09/18/21 Interval History: Seen in f/u PNA, heart failure..still says he doesn't feel good. Review of Systems no fever sob no bough Physical Exam Vital Signs: Vital Signs: Last Vital Signs Temp 97.2 F 09/18/21 07:12 Pulse 90 09/18/21 07:12 Resp 16 09/18/21 07:12 BP 104/62 09/18/21 07:12 Pulse Ox 99 09/18/21 07:12 Body Mass Index 28.6 General: AO X 3, no acute distress Resp: mild rales, 1+ edama CVS: S1,S2,RRR GI: +BS, NT, no distention Skin: No rash Neuro: motor grossly intact Psych: appropriate affect Objective Data Active Medications Acetaminophen (Acetaminophen 325 Mg Tablet) 650 mg PO Q6H PRN PRN Reason: Pain, Mild (Pain Scale 1-3) Last Admin: 09/17/21 04:17 Dose: 650 mg Documented by: PING Albuterol/Ipratropium (Albuterol/Iprat 2.5/0.5mg 3 Ml Ampul.Neb) 3 ml INHALE Q4H PRN PRN Reason: Shortness of Breath/Wheezing Last Admin: 09/17/21 19:47 Dose: 3 ml Documented by: COLLEEN Dextrose (Dextrose 50 % 25 Gm/50 Ml Vial) 25 gm IVPUSH Q15M PRN; Protocol PRN Reason: per Hypoglycemia Standing Ord. Furosemide (Furosemide 100 Mg/10 Ml Vial) 80 mg IVPUSH Q12H [facility]; Protocol Last Admin: 09/18/21 06:19 Dose: 80 mg Documented by: PING Glucose (Glucose Gel 15 Gm Gel..Gram.) 15 gm PO Q15M PRN; Protocol PRN Reason: per Hypoglycemia Standing Ord. Piperacillin Sod/Tazobactam (Sod 2.25 gm/ Sodium Chloride) 50 mls @ 100 mls/hr IV Q8H [facility] Last Infusion: 09/18/21 06:53 Dose: 0 mls/hr Documented by: PING Vancomycin HCl 500 mg/ Sodium (Chloride) 110 mls @ 110 mls/hr IV Q24H [facility] Last Infusion: 09/17/21 22:30 Dose: 0 mls/hr Documented by: PING Insulin Human Lispro (Insulin Lispro 100 Unit/Ml 3 Ml Vial) 0 unit SUBCUT QIDACHS [facility]; Protocol Last Admin: 09/18/21 07:12 Dose: Not Given Documented by: FE Non-Admin Reason: No Insulin Coverage Melatonin (Melatonin 3 Mg Tablet) 6 mg PO BEDTIME PRN PRN Reason: Insomnia Last Admin: 09/17/21 20:58 Dose: 6 mg Documented by: PING Pharmacy Consult (Consult Rx Perform Med Rec) 1 each MISCELLANE ONCE PRN PRN Reason: Consult order Pharmacy Consult (Consult Rx Vancomycin Dosing) 1 each MISCELLANE DAILY PRN PRN Reason: Consult order Pharmacy Consult (Consult Rx Perform Med Rec) 1 each MISCELLANE ONCE PRN PRN Reason: Consult order Senna (Sennosides 8.6 Mg Tablet) 17.2 mg PO BEDTIME PRN PRN Reason: Constipation Last Admin: 09/17/21 20:58 Dose: 17.2 mg Documented by: PING Sodium Chloride (0.9 % Sodium Chloride Flush 3 Ml Syringe) 3 ml [facility] Last Admin: 09/18/21 07:09 Dose: 3 ml Documented by: FE Labs CBC & Chem 7: 09/17/21 06:03 09/18/21 05:32 Labs: Laboratory Results - last 24 hr 09/17/21 09/17/21 09/17/21 11:04 11:44 12:31 Estim Creat Clear Calc Estimated GFR POC Glucose 135 H Troponin I High Sens 417.2 H* U Random Total Protein 11 Urine Creatinine Urine Microalbumin Microalb/Creat Ratio 09/17/21 09/17/21 09/17/21 12:32 12:32 15:42 Estim Creat Clear Calc Estimated GFR POC Glucose 204 H Troponin I High Sens U Random Total Protein Urine Creatinine 64.96 63.80 Urine Microalbumin 29.0 Microalb/Creat Ratio 45.4 09/17/21 09/18/21 09/18/21 20:42 05:32 07:09 Estim Creat Clear Calc 22.3 Estimated GFR 24 POC Glucose 208 H 67 Troponin I High Sens U Random Total Protein Urine Creatinine Urine Microalbumin Microalb/Creat Ratio Microbiology Microbiology Results: Microbiology 09/16/21 21:44 Blood Culture - Preliminary Blood - Venous No growth after 24 hours. 09/16/21 21:44 Blood Culture - Preliminary Blood - Venous No growth after 24 hours. Assessment and Plan (1) Heart failure: Status: Acute Assessment and Plan: 76-year-old male with a past medical history of hypertension, hyperlipidemia, diabetes, CAD, CHF, history of COVID-19 infection, obesity, obstructive sleep apnea, recent admission to the hospital for NSTEMI status post stress test; history of AFib on Eliquis, chronic kidney disease presented to the hospital with a chief complaint of shortness of breath.? Noted to have multifocal pneumonia on CT chest.? Admitted for further management. Sepsis due to pneumonia, no severe sepsis, renal failure is chronic and not due to sepsis Multifocal pneumonia without hypoxia, mild increase in WBC , DC vancomycin and continue Zosyn.? COVID-19 negative. Raising concern of possible changes related to amiodarone repeat CXR today and if better, consider oral Augmentin Pleural effusion likely parepneumonic effusion, no indication for thoracentesis at this time, treat pna Acute on chronic systolic heart failure--could be what is manifested on imaging rather than PNA -IV Lasix, monitor I/O, renal function Elevated troponins:? likely from CKD, no chest pain, repeat Shoulder pain:Heat xray, mild arthritis. CKD 3, stable there is NO MORTEZA Diabetes:? Insulin sliding scale. Chronic AFib:? Rate controlled.? Continue home Eliquis.? DC amiodarone for possible pulmonary involvment. Code status:? Full code Quality Stroke Does the patient have a stroke diagnosis?: No VTE Prior VTE?: No VTE Risk Level:: Medical - moderate - high VTE Device Contraindication: Treatment Not Indicated VTE Drug Contraindication: N/A - Med Ordered
[2021-09-18 11:13] LABS: Glucose, Whole Blood 127 mg/dL (60-115)
[2021-09-18] MEDS: Amiodarone HCL 200 MG TABLET PO (11:29)
[2021-09-18] MEDS: Apixaban 5 MG TABLET PO ×2 (11:29→21:05)
[2021-09-18 16:22] LABS: Glucose, Whole Blood 119 mg/dL (60-115)
[2021-09-18] MEDS: metOLazone 5 MG TABLET PO (17:16)
--- NOTE | 2021-09-18 17:21 | P.PNNP_ITS ---
Subjective Subjective Date of Service: 09/18/21 Principal diagnosis: CKD Interval history: Seen and examined, events noted Physical Exam Vital Signs: Vital Signs: Last Vital Signs Temp 97.3 F 09/18/21 15:26 Pulse 85 09/18/21 15:26 Resp 15 09/18/21 15:26 BP 134/79 09/18/21 15:26 Pulse Ox 98 09/18/21 15:26 Body Mass Index 28.6 Const: General: cooperative, no acute distress, alert and awake Orientation/consciousness: patient oriented x3 Neck: Neck: Yes normal visual inspection and Yes JVD (to near jaw) Resp: Other: Rales noted in each lower lobe Effort & Inspection: normal respiratory effort, able to speak in complete sentences and not labored Auscultation: no rhonchi and no wheezes Cardio: Jugular venous distension: JVD Palpation: normal PMI Rate: regular rate Rhythm: regular rhythm Heart sounds: S1 normal heart sound present and S2 normal heart sound present Peripheral pulses: Peripheral pulses 2+ throughout GI: Other: Rounded, nontender Neuro: General: patient oriented x3 Extrem: Other: +1-2 pitting edema to lower legs from mid calf down General: Yes normal to inspection Objective Data Labs CBC & Chem 7: 09/17/21 06:03 09/18/21 05:32 Labs: Laboratory Results - last 24 hr 09/17/21 09/18/21 09/18/21 20:42 05:32 07:09 Creatinine 2.61 H Estim Creat Clear Calc 22.3 Estimated GFR 24 POC Glucose 208 H 67 09/18/21 09/18/21 11:06 15:56 Creatinine Estim Creat Clear Calc Estimated GFR POC Glucose 127 H 119 H Microbiology Microbiology Results: Microbiology 09/16/21 21:44 Blood - Venous Blood Culture - Preliminary No growth after 24 hours. 09/16/21 21:44 Blood - Venous Blood Culture - Preliminary No growth after 24 hours. Procedures Date of Service Date of Service: 09/18/21 Assessment & Plan Assessment and plan (1) Acute on chronic diastolic (congestive) heart failure: Status: Acute (2) Presence of CardioMEMS HF system: Status: Acute (3) Multifocal pneumonia: Status: Acute Assessment and Plan: Followed by hospitalist (4) PAF (paroxysmal atrial fibrillation): Status: Acute (5) Essential hypertension: Status: Acute (6) CAD (coronary artery disease): Status: Acute (7) CKD (chronic kidney disease) stage 3, GFR 30-59 ml/min: Status: Acute Assessment and Plan: 1. CKD 4:c/w combination DN/HTN and CRSyn withnew bsl SCr 2.5-3.0 range w/u for other causes of MORTEZA/CKD neg: u/s no hydro; no signif Uprot and UA shows rbc but o/w neg 2. dCHF: diuresising? and need toincr with addition of zaroxlyn and/or incr lasix in next 24 hrs---lets see what his PAD is on Cardiomems card eval in progress---has Cardiomems which is being eval 3. DM 4. MBD of CKD: check PTH Disc:will need to get prepared for [employer] and protect LUE for future AVF; suspect he may end up on dialysis in the next 6-12 months Will follow closely with team Time Spent With Patient Time: Total time spent is greater than 50% in coordination of care (as documented) at patient's floor/unit and/or counseling patient: Progress Note: Quality Stroke Does the patient have a stroke diagnosis?: No
[2021-09-18 20:14] LABS: Glucose, Whole Blood 171 mg/dL (60-115)
[2021-09-18] MEDS: Melatonin 3 MG TABLET 6 MG PO (21:05)
[2021-09-18] MEDS: Insulin Lispro 100 UNIT/ML 3 ML VIAL SUBCUT (21:05)
[2021-09-18] MEDS: Atorvastatin Calcium 40 MG TABLET PO (21:05)
[2021-09-18] MEDS: Albuterol/Iprat 2.5/0.5MG 3 ML AMPUL.NEB INHALE (21:23)
[2021-09-19 03:40] VITALS: BP 98/54; PULSE 77; RESP 14; TEMP 35.9; O2SAT 97
[2021-09-19] MEDS: Piperacillin Sodium/Tazobactam 2.25 GM in 0.9 % Sodium Chloride 50 ML IV ×3 (06:12→23:24)
[2021-09-19] MEDS: Furosemide 100 MG/10 ML VIAL 80 MG IVPUSH (06:12)
[2021-09-19 06:28] LABS: Estimated Glomerular Filt Rate 23
[2021-09-19 06:38] LABS: Anion Gap 17 (12-20); Blood Urea Nitrogen 82 mg/dL (9-16); Calcium 9.4 mg/dL (8.4-10.2); Carbon Dioxide 29 mmol/L (22-29); Chloride 96 mmol/L (96-108); Creatinine Clr Calc Pharmacy 20.4; Estimated Glomerular Filt Rate 22; Glucose Random 109 mg/dL (60-115); Potassium 4.2 mmol/L (3.3-5.1); Sodium 138 mmol/L (135-145)
[2021-09-19 07:03] VITALS: BP 105/58; PULSE 80; RESP 17; TEMP 36.1; O2SAT 98
[2021-09-19 07:34] LABS: Glucose, Whole Blood 93 mg/dL (60-115)
[2021-09-19 09:12] VITALS: BP 105/58; PULSE 80
[2021-09-19] MEDS: Amiodarone HCL 200 MG TABLET PO (09:12)
[2021-09-19] MEDS: Apixaban 5 MG TABLET PO ×2 (09:12→21:15)
[2021-09-19] MEDS: 0.9 % Sodium Chloride Flush 3 ML SYRINGE IVFLUSH ×2 (09:13→15:27)
--- NOTE | 2021-09-19 09:48 | P.PNIM_ITS ---
Subjective Subjective Date of Service: 09/19/21 Interval History: Seen in f/u PNA, heart failure..Still sob, didn't sleep Review of Systems no fever sob no cough Constitutional General: AO X 3, no acute distress Resp:? left sided rales CVS: S1,S2,RRR GI: +BS, NT, no distention Skin: No rash Neuro:? motor grossly intact Psych: appropriate affect Physical Exam Vital Signs: Vital Signs: Last Vital Signs Temp 97.0 F 09/19/21 07:03 Pulse 80 09/19/21 09:12 Resp 17 09/19/21 07:03 BP 105/58 L 09/19/21 09:12 Pulse Ox 98 09/19/21 07:03 Body Mass Index 28.6 Objective Data Active Medications Acetaminophen (Acetaminophen 325 Mg Tablet) 650 mg PO Q6H PRN PRN Reason: Pain, Mild (Pain Scale 1-3) Last Admin: 09/17/21 04:17 Dose: 650 mg Documented by: PING Albuterol/Ipratropium (Albuterol/Iprat 2.5/0.5mg 3 Ml Ampul.Neb) 3 ml INHALE Q4H PRN PRN Reason: Shortness of Breath/Wheezing Last Admin: 09/18/21 21:23 Dose: 3 ml Documented by: DIEGO Amiodarone HCl (Amiodarone Hcl 200 Mg Tablet) 200 mg PO DAILY [facility] Last Admin: 09/19/21 09:12 Dose: 200 mg Documented by: RYNE Apixaban (Apixaban 5 Mg Tablet) 5 mg PO BID [facility] Last Admin: 09/19/21 09:12 Dose: 5 mg Documented by: RYNE Atorvastatin Calcium (Atorvastatin Calcium 40 Mg Tablet) 40 mg PO BEDTIME [facility] Last Admin: 09/18/21 21:05 Dose: 40 mg Documented by: PING Dextrose (Dextrose 50 % 25 Gm/50 Ml Vial) 25 gm IVPUSH Q15M PRN; Protocol PRN Reason: per Hypoglycemia Standing Ord. Furosemide (Furosemide 100 Mg/10 Ml Vial) 80 mg IVPUSH Q12H [facility]; Protocol Last Admin: 09/19/21 06:12 Dose: 80 mg Documented by: PING Glucose (Glucose Gel 15 Gm Gel..Gram.) 15 gm PO Q15M PRN; Protocol PRN Reason: per Hypoglycemia Standing Ord. Piperacillin Sod/Tazobactam (Sod 2.25 gm/ Sodium Chloride) 50 mls @ 100 mls/hr IV Q8H [facility] Last Infusion: 09/19/21 06:52 Dose: 0 mls/hr Documented by: PING Insulin Human Lispro (Insulin Lispro 100 Unit/Ml 3 Ml Vial) 0 unit SUBCUT QIDACHS [facility]; Protocol Last Admin: 09/19/21 07:46 Dose: Not Given Documented by: RYNE Non-Admin Reason: No Insulin Coverage Melatonin (Melatonin 3 Mg Tablet) 6 mg PO BEDTIME PRN PRN Reason: Insomnia Last Admin: 09/18/21 21:05 Dose: 6 mg Documented by: PING Pharmacy Consult (Consult Rx Perform Med Rec) 1 each MISCELLANE ONCE PRN PRN Reason: Consult order Pharmacy Consult (Consult Rx Vancomycin Dosing) 1 each MISCELLANE DAILY PRN PRN Reason: Consult order Pharmacy Consult (Consult Rx Perform Med Rec) 1 each MISCELLANE ONCE PRN PRN Reason: Consult order Senna (Sennosides 8.6 Mg Tablet) 17.2 mg PO BEDTIME PRN PRN Reason: Constipation Last Admin: 09/17/21 20:58 Dose: 17.2 mg Documented by: PING Sodium Chloride (0.9 % Sodium Chloride Flush 3 Ml Syringe) 3 ml IVFLUSH QSHIFT [facility] Last Admin: 09/19/21 09:13 Dose: 3 ml Documented by: RYNE Labs CBC & Chem 7: 09/17/21 06:03 09/19/21 05:37 Labs: Laboratory Results - last 24 hr 09/16/21 09/17/21 09/18/21 18:28 06:03 11:06 Anion Gap BUN 86 H* D 84 H* Estim Creat Clear Calc Estimated GFR POC Glucose 127 H Random Glucose Calcium 09/18/21 09/18/21 09/19/21 15:56 20:05 05:37 Anion Gap 17 BUN 82 H* Estim Creat Clear Calc 20.4 Estimated GFR 22 POC Glucose 119 H 171 H Random Glucose 109 D Calcium 9.4 09/19/21 09/19/21 05:37 07:06 Anion Gap BUN Estim Creat Clear Calc 21.0 Estimated GFR 23 POC Glucose 93 Random Glucose Calcium Microbiology Microbiology Results: Microbiology 09/16/21 21:44 Blood Culture - Preliminary Blood - Venous No growth after 48 hours. 09/16/21 21:44 Blood Culture - Preliminary Blood - Venous No growth after 48 hours. Assessment and Plan (1) Heart failure: Status: Acute (2) Acute kidney injury superimposed on CKD: Status: Acute Assessment and Plan: 76-year-old male with a past medical history of hypertension, hyperlipidemia, diabetes, CAD, CHF, history of COVID-19 infection, obesity, obstructive sleep apnea, recent admission to the hospital for NSTEMI status post stress test; history of AFib on Eliquis, chronic kidney disease presented to the hospital with a chief complaint of shortness of breath.? Noted to have multifocal pneumonia on CT chest.? Admitted for further management. Sepsis due to pneumonia, no severe sepsis, renal failure is chronic and not due to sepsis Multifocal pneumonia without hypoxia, mild increase in WBC , DC vancomycin and continued Zosyn.? COVID-19 negative. repeat CXR 09/18 showed worsening Pleural effusion likely parepneumonic effusion, no indication for thoracentesis at this time Still concern about possible amio Pulmonary consult Acute on chronic systolic heart failure--could be what is manifested on imaging rather than PNA -IV Lasix, monitor I/O, renal function, so far negative 800 Elevated troponins:? likely from CKD, no chest pain, repeat Shoulder pain xray mild arthritis. CKD 3, stable there is NO MORTEZA Diabetes:? Insulin sliding scale. Chronic AFib:? Rate controlled.? Continue home Eliquis.? DC amiodarone for possible pulmonary involvment. Code status:? Full code Quality Stroke Does the patient have a stroke diagnosis?: No VTE Prior VTE?: No VTE Risk Level:: Medical - moderate - high VTE Device Contraindication: Treatment Not Indicated VTE Drug Contraindication: N/A - Med Ordered
--- NOTE | 2021-09-19 10:42 | P.PNNP_ITS ---
Subjective Subjective Date of Service: 09/19/21 Principal diagnosis: CKD Interval history: seen and examined, events noted Physical Exam Vital Signs: Vital Signs: Last Vital Signs Temp 97.0 F 09/19/21 07:03 Pulse 80 09/19/21 09:12 Resp 17 09/19/21 07:03 BP 105/58 L 09/19/21 09:12 Pulse Ox 98 09/19/21 07:03 Body Mass Index 28.6 Const: General: cooperative, no acute distress, alert and awake Orientation/consciousness: patient oriented x3 Neck: Neck: Yes normal visual inspection and Yes JVD (to near jaw) Resp: Other: Rales noted in each lower lobe Effort & Inspection: normal respiratory effort, able to speak in complete sentences and not labored Auscultation: no rhonchi and no wheezes Cardio: Jugular venous distension: JVD Palpation: normal PMI Rate: regular rate Rhythm: regular rhythm Heart sounds: S1 normal heart sound present and S2 normal heart sound present Peripheral pulses: Peripheral pulses 2+ throughout GI: Other: Rounded, nontender Neuro: General: patient oriented x3 Extrem: Other: +1-2 pitting edema to lower legs from mid calf down General: Yes normal to inspection Objective Data Labs CBC & Chem 7: 09/17/21 06:03 09/19/21 05:37 Labs: Laboratory Results - last 24 hr 09/18/21 09/18/21 09/18/21 11:06 15:56 20:05 Sodium Potassium Chloride Carbon Dioxide Anion Gap BUN Creatinine Estim Creat Clear Calc Estimated GFR POC Glucose 127 H 119 H 171 H Random Glucose Calcium 09/19/21 09/19/21 09/19/21 05:37 05:37 07:06 Sodium 138 Potassium 4.2 Chloride 96 Carbon Dioxide 29 Anion Gap 17 BUN 82 H* Creatinine 2.84 H 2.77 H Estim Creat Clear Calc 20.4 21.0 Estimated GFR 22 23 POC Glucose 93 Random Glucose 109 D Calcium 9.4 Microbiology Microbiology Results: Microbiology 09/16/21 21:44 Blood - Venous Blood Culture - Preliminary No growth after 48 hours. 09/16/21 21:44 Blood - Venous Blood Culture - Preliminary No growth after 48 hours. Procedures Date of Service Date of Service: 09/19/21 Assessment & Plan Assessment and plan (1) Acute on chronic diastolic (congestive) heart failure: Status: Acute (2) Presence of CardioMEMS HF system: Status: Acute (3) Multifocal pneumonia: Status: Acute Assessment and Plan: Followed by hospitalist (4) PAF (paroxysmal atrial fibrillation): Status: Acute (5) Essential hypertension: Status: Acute (6) CAD (coronary artery disease): Status: Acute (7) CKD (chronic kidney disease) stage 3, GFR 30-59 ml/min: Status: Acute Assessment and Plan: 1. CKD 4:c/w combination DN/HTN and CRSyn withn ew bsl SCr 2.5-3.0 range w/u for other causes of MORTEZA/CKD neg: u/s no hydro; no signif Uprot and UA shows rbc but o/w neg given cint abnl on CXR and microHematuria raises, albiet low likleihood, ques of pulm/renal syn 2. dCHF: diuresising? and need to incr with addition of zaroxlyn and/or incr lasix in next 24 hrs---lets see what his PAD is on Cardiomems card eval in progress---has Cardiomems which is being eval 3. DM 4. 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
[2021-09-19 11:14] VITALS: BP 100/56; PULSE 81; RESP 17; TEMP 36.2; O2SAT 97
--- NOTE | 2021-09-19 11:23 | PM.PNCARD ---
Subjective Subjective Date of Service: 09/19/21 <GIOVANA Macias - Last Filed: 09/19/21 11:35> 09/20/21 <Dax Novoa MD - Last Filed: 09/20/21 12:30> Principal diagnosis: CKD , PNA, CHF <GIOVANA Macias - Last Filed: 09/19/21 11:35> Interval history: Cardiology follow up for CHF. Seen at 1000. Today he reports that he still has shortness of breath. He denies chest pain, palpitations, abdominal discomfort. His legs are still swollen. Steady on his feet when getting up. Plan to have family bring in cardiomems pillow today. <GIOVANA Macias - Last Filed: 09/19/21 11:35> Review of Systems Review of Systems as above <GIOVANA Macias - Last Filed: 09/19/21 11:35> Yes all other systems are reviewed and are negative <GIOVANA Macias - Last Filed: 09/19/21 11:35> Physical Exam Vital Signs: Last Vital Signs Temp 97.1 F 09/19/21 11:14 Pulse 81 09/19/21 11:14 Resp 17 09/19/21 11:14 BP 100/56 L 09/19/21 11:14 Pulse Ox 97 09/19/21 11:14 Body Mass Index 28.6 <GIOVANA Macias - Last Filed: 09/19/21 11:35> Const General: cooperative, no acute distress, alert and awake <GIOVANA Macias - Last Filed: 09/19/21 11:35> Orientation/consciousness: patient oriented x3 <GIOVANA Macias - Last Filed: 09/19/21 11:35> Neck Neck: Yes normal visual inspection and Yes JVD <GIOVANA Macias - Last Filed: 09/19/21 11:35> Resp Effort & Inspection: normal respiratory effort, able to speak in complete sentences and not labored <GIOVANA Macias - Last Filed: 09/19/21 11:35> Auscultation: rales (1/3 up bilaterally), no rhonchi and no wheezes <Dona Diez NPC - Last Filed: 09/19/21 11:35> Cardio Jugular venous distension: JVD present <ANTONIO Macias - Last Filed: 09/19/21 11:35> Palpation: normal PMI <ANTONIO MaciasC - Last Filed: 09/19/21 11:35> Rate: regular rate <Dona Diez NP - Last Filed: 09/19/21 11:35> Rhythm: regular rhythm <Dona Diez NPC - Last Filed: 09/19/21 11:35> Heart sounds: S1 normal heart sound present and S2 normal heart sound present <Dona Diez NP - Last Filed: 09/19/21 11:35> Peripheral pulses: Peripheral pulses 2+ throughout <Doan Diez [facility] - Last Filed: 09/19/21 11:35> GI Inspection: Yes normal to inspection <Dona Diez NP - Last Filed: 09/19/21 11:35> Neuro General: patient oriented x3 <Dona Diez NP - Last Filed: 09/19/21 11:35> Extrem Other: 1-2+ pitting edema of lower legs bilaterally <Dona Diez [facility] - Last Filed: 09/19/21 11:35> Results Labs and Meds Result diagrams: : 09/17/21 06:03 09/20/21 05:55 <Dona Diez NP-C - Last Filed: 09/19/21 11:35> Lab results: Laboratory Results - last 24 hr 09/18/21 09/18/21 09/19/21 15:56 20:05 05:37 Sodium 138 Potassium 4.2 Chloride 96 Carbon Dioxide 29 Anion Gap 17 BUN 82 H* Creatinine 2.84 H Estim Creat Clear Calc 20.4 Estimated GFR 22 POC Glucose 119 H 171 H Random Glucose 109 D Calcium 9.4 09/19/21 09/19/21 05:37 07:06 Sodium Potassium Chloride Carbon Dioxide Anion Gap BUN Creatinine 2.77 H Estim Creat Clear Calc 21.0 Estimated GFR 23 POC Glucose 93 Random Glucose Calcium <GIOVANA Macias - Last Filed: 09/19/21 11:35> Progress Note: A&P Assessment and plan (1) Acute on chronic diastolic (congestive) heart failure: Status: Acute <GIOVANA Macias - Last Filed: 09/19/21 11:35> Assessment and Plan: Hx of chronic diastolic HF.? Last echo 07/30/21 shows EF 50-55%, grade 3 diastolic dysfunction, mild to mod MR. He does have a cardiomems HF monitoring device in place and readings have been elevated recently. There have been issues with diuretic management at home as he uses pill pack from pharmacy and additional diuretics on the side. This admit he presents with increased sob and edema. CT shows multifocal PNA and he is on appropriate antibiotics. On exam he still has evidence of fluid overload and is being diuresed with IV lasix and recieved a dose of Metolazone yesterday. Fluid balance as of this am is only 830 cc neg. Last known PAD reading was 20mmhg - his goal is 14-15 mmhg.? He has been instructed to bring in his Cardiomems pillow from home so that monitoring can be performed while inpt. Will continue to diurese - changing Lasix to a Lasix drip at 10mg/hr. Continue strict I+O monitoring. Close monitoring of his electrolytes and kidney function. Electrolyte replacement as warranted. He has known CKD, Cr 2.84 this am, was 2.99 on admit. We will follow <GIOVANA Macias - Last Filed: 09/19/21 11:35> (2) Presence of CardioMEMS HF system: Status: Acute <GIOVANA Macias - Last Filed: 09/19/21 11:35> (3) PAF (paroxysmal atrial fibrillation): Status: Acute <GIOVANA Macias - Last Filed: 09/19/21 11:35> Assessment and Plan: History of paroxysmal atrial fibrillation. Has been suppressed with amiodarone 200 mg daily.? Telemetry monitoring shows sinus rhythm with first-degree AV block, rates 70s to 80s.? No reports of heart palpitations.? He is on Eliquis for anticoagulation.? No reports of bleeding, Has had hematuria in past.? Hgb stable . Contibue amiodarone and Eliquis. <Dona Ziegler GIOVANA Diez - Last Filed: 09/19/21 11:35> (4) CAD (coronary artery disease): Status: Acute <Dona DiezGIOVANA - Last Filed: 09/19/21 11:35> Assessment and Plan: NSTEMI earlier this month. Nuclear stress test done 09/03/21 shows:?Myocardial perfusion imaging study shows mild intensity ischemia of the lateral, mid and apical inferolateral basal and mid inferior wall with mixed infarction of the inferior, Gated LVEF is 36% with stress and 24% with rest, Transient ischemic dilatation not present. Being medically managed at present time.??No reports of chest or arm discomfort at present.? Not on aspirin as he is on Eliquis. Continue Atorvastatin. At present Hydralazine, BB being held. <Dona Ziegler GIOVANA Diez - Last Filed: 09/19/21 11:35> (5) Pneumonia: Status: Acute <Dona Ziegler GIOVANA Diez - Last Filed: 09/19/21 11:35> Assessment and Plan: Being followed by hospitalist <Dona Ziegler GIOVANA Diez - Last Filed: 09/19/21 11:35> (6) Acute kidney injury superimposed on CKD: Status: Acute <Dona Ziegler GIOVANA Diez - Last Filed: 09/19/21 11:35> Assessment and Plan: Follows with nephrology <Dona M GIOVANA Diez - Last Filed: 09/19/21 11:35> (7) Essential hypertension: Status: Acute <Dona Ziegler GIOVANA Diez - Last Filed: 09/19/21 11:35> Assessment and Plan: Home Hydralazine currently on hold due to low BPs <Dona Ziegler GIOVANA Diez - Last Filed: 09/19/21 11:35> Assessment and Plan: Patient was seen and examined at bedside on 09/19/2021. He is significantly volume overloaded. We have decided to start him on Lasix drip. Monitor electrolytes closely. We will follow along with you. Thank you for allowing me to participate in the care of your patient. Please feel free to contact me if you have any questions. <Dax Novoa MD - Last Filed: 09/20/21 12:30> Fall Risk Details Current Medications: Current Medications Acetaminophen (Acetaminophen 325 Mg Tablet) 650 mg PO Q6H PRN PRN Reason: Pain, Mild (Pain Scale 1-3) Last Admin: 09/17/21 04:17 Dose: 650 mg Documented by: Albuterol/Ipratropium (Albuterol/Iprat 2.5/0.5mg 3 Ml Ampul.Neb) 3 ml INHALE Q4H PRN PRN Reason: Shortness of Breath/Wheezing Last Admin: 09/18/21 21:23 Dose: 3 ml Documented by: Amiodarone HCl (Amiodarone Hcl 200 Mg Tablet) 200 mg PO DAILY [facility] Last Admin: 09/19/21 09:12 Dose: 200 mg Documented by: Apixaban (Apixaban 5 Mg Tablet) 5 mg PO BID [facility] Last Admin: 09/19/21 09:12 Dose: 5 mg Documented by: Atorvastatin Calcium (Atorvastatin Calcium 40 Mg Tablet) 40 mg PO BEDTIME [facility] Last Admin: 09/18/21 21:05 Dose: 40 mg Documented by: Dextrose (Dextrose 50 % 25 Gm/50 Ml Vial) 25 gm IVPUSH Q15M PRN; Protocol PRN Reason: per Hypoglycemia Standing Ord. Furosemide (Furosemide 100 Mg/10 Ml Vial) 80 mg IVPUSH Q12H KIM; Protocol Last Admin: 09/19/21 06:12 Dose: 80 mg Documented by: Glucose (Glucose Gel 15 Gm Gel..Gram.) 15 gm PO Q15M PRN; Protocol PRN Reason: per Hypoglycemia Standing Ord. Piperacillin Sod/Tazobactam (Sod 2.25 gm/ Sodium Chloride) 50 mls @ 100 mls/hr IV Q8H [facility] Last Infusion: 09/19/21 06:52 Dose: Infused Documented by: Insulin Human Lispro (Insulin Lispro 100 Unit/Ml 3 Ml Vial) 0 unit SUBCUT QIDACHS [facility]; Protocol Last Admin: 09/19/21 07:46 Dose: Not Given Documented by: Melatonin (Melatonin 3 Mg Tablet) 6 mg PO BEDTIME PRN PRN Reason: Insomnia Last Admin: 09/18/21 21:05 Dose: 6 mg Documented by: Pharmacy Consult (Consult Rx Perform Med Rec) 1 each MISCELLANE ONCE PRN PRN Reason: Consult order Pharmacy Consult (Consult Rx Vancomycin Dosing) 1 each MISCELLANE DAILY PRN PRN Reason: Consult order Pharmacy Consult (Consult Rx Perform Med Rec) 1 each MISCELLANE ONCE PRN PRN Reason: Consult order Senna (Sennosides 8.6 Mg Tablet) 17.2 mg PO BEDTIME PRN PRN Reason: Constipation Last Admin: 09/17/21 20:58 Dose: 17.2 mg Documented by: Sodium Chloride (0.9 % Sodium Chloride Flush 3 Ml Syringe) 3 ml IVFLUSH QSHIFT KIM Last Admin: 09/19/21 09:13 Dose: 3 ml Documented by: <GIOVANA Macias - Last Filed: 09/19/21 11:35> Time Spent With Patient Time: Total time spent is greater than 50% in coordination of care (as documented) at patient's floor/unit and/or counseling patient: <GIOVANA Macias - Last Filed: 09/19/21 11:35> Time with patient: 15 - 24 minutes <GIOVANA Macias - Last Filed: 09/19/21 11:35> Progress Note: Quality Stroke Does the patient have a stroke diagnosis?: No <GIOVANA Macias Last Filed: 09/19/21 11:35> Procedures Date of Service Date of Service: 09/19/21 <GIOVANA Macias - Last Filed: 09/19/21 11:35>
[2021-09-19 11:30] LABS: Glucose, Whole Blood 184 mg/dL (60-115)
[2021-09-19] MEDS: Insulin Lispro 100 UNIT/ML 3 ML VIAL SUBCUT ×3 (12:13→21:16)
[2021-09-19] MEDS: Furosemide 200 MG in 0.9 % Sodium Chloride 80 ML IVCONT (12:27)
--- NOTE | 2021-09-19 13:37 | P.CONPL_ITS ---
History of Present Illness History of Present Illness Consult date: 09/19/21 Requesting physician: Lexx Fisher Chief complaint: CHF Narrative: 76-year-old gentleman with underlying history of diastolic congestive heart failure, diabetes, CAD, obstructive sleep apnea, AFib on anticoagulation, CKD admitted on 09/16/2021 with progressive dyspnea. Patient was noted to be in exacerbation of underlying congestive heart failure and started on diuresis. CT chest was obtained that showed bilateral patchy ground-glass infiltrate and pulmonary evaluation is requested. Patient denies cough sputum production, fevers or chills. His complaining of significant orthopnea, lower extremity edema, and dyspnea. Review of Systems Constitutional: Constitutional: Denies daytime sleepiness, Denies excessive sweating, Denies fatigue, Denies fever(s), Denies lethargy, Denies malaise, Denies night sweats, Denies snoring and Denies weight loss Eyes: Eyes: Denies blurry vision and Denies itchy eyes ENT: Denies nasal congestion, Denies post nasal drip, Denies sinus pain, Denies sinus pressure and Denies other ( Thrush) Cardiovascular: Cardiovascular: Denies chest pain, Reports pedal edema, Reports dyspnea, Reports orthopnea and Reports paroxysmal nocturnal dyspnea Respiratory: Respiratory: Denies cough, Denies hemoptysis, Denies excessive phlegm production, Reports dyspnea, Denies snoring and Denies wheezing Gastrointestinal: Gastrointestinal: Denies abdominal pain and Denies heartburn Musculoskeletal: Musculoskeletal: Denies myalgias, Denies arthralgias and Denies joint swelling Integumentary/Breasts: Skin/Breast: Denies rash Neurologic: Denies memory loss and Denies seizure-like activity Psychiatric: Psychiatric: Denies abnormal sleep pattern, Denies anxiety and Denies memory loss Endocrine: Endocrine: Denies excessive sweating, Denies fatigue and Denies hea t intolerance Hematologic/Lymphatic: Hematologic/Lymphatic: Denies easy bruising Allergic/Immunologic: Allergic/Immunologic: Denies itchy eyes, Denies seasonal rhinorrhea and Denies wheezing PMFSH Past Medical History Medical History CAD (coronary artery disease) Cardiomyopathy CKD (chronic kidney disease) stage 3, GFR 30-59 ml/min COVID-19 vaccine series completed Diabetic polyneuropathy associated with type 2 diabetes mellitus Dyslipidemia Essential hypertension Heart failure with preserved ejection fraction History of cardioversion History of COVID-19 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 Obesity (BMI 30-39.9) SRINIVASA (obstructive sleep apnea) Presence of CardioMEMS HF system Family History Family History Father Heart disease Diabetes mellitus Mother Diabetes mellitus Surgical History Surgical History Hx of cardiac catheterization Hx of colonoscopy Social History Social History Household Members: Spouse Housing: Apartment Are you a primary career development coordinator to a significant other at home: No Do you presently have visiting nurse or other home services: No Alcohol intake: never Patient Tobacco Use Status: Former Tobacco user Quit Date: 1979 Tobacco use type: Cigarette Years Smoked: 33 e-Cigarette/Vaping Use: Never Used Second Hand Smoke Exposure: No Advance Directives Date on File: 08/23/21 service: No Current occupational status: unemployed and retired Meds Allergies Allergy/AdvReac Type Severity Reaction Status Date / Time No Known Allergies Allergy Verified 09/03/21 08:08 [No Known Allergies*] Active Medications: Current Medications Acetaminophen (Acetaminophen 325 Mg Tablet) 650 mg PO Q6H PRN PRN Reason: Pain, Mild (Pain Scale 1-3) Last Admin: 09/17/21 04:17 Dose: 650 mg Documented by: Albuterol/Ipratropium (Albuterol/Iprat 2.5/0.5mg 3 Ml Ampul.Neb) 3 ml INHALE Q4H PRN PRN Reason: Shortness of Breath/Wheezing Last Admin: 09/18/21 21:23 Dose: 3 ml Documented by: Amiodarone HCl (Amiodarone Hcl 200 Mg Tablet) 200 mg PO DAILY [facility] Last Admin: 09/19/21 09:12 Dose: 200 mg Documented by: Apixaban (Apixaban 5 Mg Tablet) 5 mg PO BID [facility] Last Admin: 09/19/21 09:12 Dose: 5 mg Documented by: Atorvastatin Calcium (Atorvastatin Calcium 40 Mg Tablet) 40 mg PO BEDTIME [facility] Last Admin: 09/18/21 21:05 Dose: 40 mg Documented by: Dextrose (Dextrose 50 % 25 Gm/50 Ml Vial) 25 gm IVPUSH Q15M PRN; Protocol PRN Reason: per Hypoglycemia Standing Ord. Glucose (Glucose Gel 15 Gm Gel..Gram.) 15 gm PO Q15M PRN; Protocol PRN Reason: per Hypoglycemia Standing Ord. Piperacillin Sod/Tazobactam (Sod 2.25 gm/ Sodium Chloride) 50 mls @ 100 mls/hr IV Q8H [facility] Last Infusion: 09/19/21 06:52 Dose: Infused Documented by: Furosemide 200 mg/ Sodium (Chloride) 100 mls @ 5 mls/hr IVCONT .Q20H [facility] Last Admin: 09/19/21 12:27 Dose: 10 mg/hr, 5 mls/hr Documented by: Insulin Human Lispro (Insulin Lispro 100 Unit/Ml 3 Ml Vial) 0 unit SUBCUT QIDACHS [facility]; Protocol Last Admin: 09/19/21 12:13 Dose: 2 unit Documented by: Melatonin (Melatonin 3 Mg Tablet) 6 mg PO BEDTIME PRN PRN Reason: Insomnia Last Admin: 09/18/21 21:05 Dose: 6 mg Documented by: Pharmacy Consult (Consult Rx Perform Med Rec) 1 each MISCELLANE ONCE PRN PRN Reason: Consult order Pharmacy Consult (Consult Rx Vancomycin Dosing) 1 each MISCELLANE DAILY PRN PRN Reason: Consult order Pharmacy Consult (Consult Rx Perform Med Rec) 1 each MISCELLANE ONCE PRN PRN Reason: Consult order Senna (Sennosides 8.6 Mg Tablet) 17.2 mg PO BEDTIME PRN PRN Reason: Constipation Last Admin: 09/17/21 20:58 Dose: 17.2 mg Documented by: Sodium Chloride (0.9 % Sodium Chloride Flush 3 Ml Syringe) 3 ml IVFLUSH [facility] Last Admin: 09/19/21 09:13 Dose: 3 ml Documented by: Home Medications Medication Instructions Recorded Confirmed Last Taken Type blood sugar diagnostic #10 ea 05/13/21 09/03/21 Unknown History amiodarone 200 mg tablet 200 mg PO DAILY@1200 08/23/21 09/16/21 09/16/21 History apixaban 5 mg tablet (Eliquis) 5 mg PO BID 08/23/21 09/16/21 09/16/21 History atorvastatin 40 mg tablet 40 mg PO BEDTIME 08/23/21 09/16/21 09/15/21 History budesonide 90 mcg/actuation breath 2 puff INHALATION BID 08/23/21 09/16/21 09/16/21 History activated powder inhaler (Pulmicort Flexhaler) cholecalciferol (vitamin D3) 50 50 mcg PO DAILY@1200 08/23/21 09/16/21 09/16/21 History mcg (2,000 unit) capsule (Vitamin D3) dulaglutide 1.5 mg/0.5 mL 1.5 mg SUBCUT WE 08/23/21 09/16/21 09/10/21 History subcutaneous pen injector (Trulicity) omeprazole 20 mg capsule,delayed 20 mg PO DAILY 08/23/21 09/16/21 09/16/21 Hist ory release docusate sodium 100 mg capsule 1 cap PO BID PRN 09/03/21 09/16/21 Unknown Histor y hydralazine 25 mg tablet 1 tab PO TID 09/03/21 09/16/21 09/16/21 History insulin lispro 100 unit/mL 17 unit SUBCUT TID 09/03/21 09/16/21 09/16/21 History subcutaneous pen (Humalog KwikPen (U-100) Insulin) lancets 33 gauge (TRUEplus Lancets) 09/03/21 09/03/21 Unknown History melatonin 3 mg tablet 1 tab PO BEDTIME PRN 09/03/21 09/16/21 09/15/21 History furosemide 20 mg tablet 20 mg PO DAILY PRN 09/16/21 09/16/21 Unknown History furosemide 20 mg tablet 40 mg PO BID 09/16/21 09/16/21 09/16/21 History insulin glargine U-300 conc 300 17 unit SUBCUT BEDTIME 09/16/21 09/16/21 09/15/21 History unit/mL (1.5 mL) subcutaneous pen (Toujeo SoloStar U-300 Insulin) potassium chloride 20 mEq 2 tab PO DAILY@119909/16/21 09/16/21 09/16/21 History tablet,extended release(part/cryst) torsemide 20 mg tablet 20 mg PO DAILY@1200 09/16/21 09/16/21 09/16/21 History torsemide 20 mg tablet 40 mg PO DAILY 09/16/21 09/16/21 09/16/21 History Physical Exam Vital Signs: Vital Signs: Last Vital Signs Temp 97.1 F 09/19/21 11:14 Pulse 81 09/19/21 11:14 Resp 17 09/19/21 11:14 BP 100/56 L 09/19/21 11:14 Pulse Ox 97 09/19/21 11:14 Body Mass Index 28.6 Const: General: no acute distress, alert and awake Eyes: Sclerae: sclerae normal EOM: EOMs intact bilaterally Neck: Neck: Yes no lymphadenopathy, Yes trachea midline and Yes supple Resp: Effort & Inspection: normal respiratory effort and no respiratory distress Auscultation: crackles (Bibasilar) Cardio: Rate: regular rate Rhythm: regular rhythm Heart sounds: no gallops, no murmurs and no rubs GI: Palpation (GI): Soft to palpation and Other GI palpation findings present ( Nontender) Auscultation: normal bowel sounds Extrem: General: No clubbing, No cyanosis and Yes pedal edema (2+ bilateral) Results Laboratory Findings CBC and BMP: 09/17/21 06:03 09/19/21 05:37 Abnormal lab findings: Abnormal Labs 09/16/21 09/16/21 09/16/21 18:28 18:28 18:28 WBC 11.0 H RBC 3.95 L Hgb 10.6 L Hct 33.8 L MCH 26.8 L RDW 17.2 H Neut % (Auto) 76.5 H Lymph % (Auto) 9.1 L [place] % (Auto) 11.3 H Lymph # (Auto) 1.0 L [place] # (Auto) Abs Immat Gran (auto) 0.04 H Absolute Neuts (auto) 8.4 H Chloride 94 L Carbon Dioxide BUN 86 H* D Creatinine 2.99 H POC Glucose Random Glucose 180 H D Troponin I High Sens 485.2 H* D B-Natriuretic Peptide 1088 H Urine Blood Urine RBC 09/16/21 09/16/21 09/17/21 20:41 23:11 06:03 WBC 13.2 H RBC 3.76 L Hgb 10.1 L Hct 31.7 L MCH 26.9 L RDW 17.2 H Neut % (Auto) 76.3 H Lymph % (Auto) 8.2 L [place] % (Auto) 13.0 H Lymph # (Auto) 1.1 L [place] # (Auto) 1.7 H Abs Immat Gran (auto) 0.05 H Absolute Neuts (auto) 10.1 H Chloride Carbon Dioxide BUN Creatinine POC Glucose Random Glucose Troponin I High Sens 498.4 H* B-Natriuretic Peptide Urine Blood 3+ H Urine RBC 30-49 H 09/17/21 09/17/21 09/17/21 06:03 11:04 11:44 WBC RBC Hgb Hct MCH RDW Neut % (Auto) Lymph % (Auto) [place] % (Auto) Lymph # (Auto) [place] # (Auto) Abs Immat Gran (auto) Absolute Neuts (auto) Chloride Carbon Dioxide 32 H BUN 84 H* Creatinine 2.72 H POC Glucose 135 H Random Glucose Troponin I High Sens 417.2 H* B-Natriuretic Peptide Urine Blood Urine RBC 09/17/21 09/17/21 09/18/21 15:42 20:42 05:32 WBC RBC Hgb Hct MCH RDW Neut % (Auto) Lymph % (Auto) [place] % (Auto) Lymph # (Auto) [place] # (Auto) Abs Immat Gran (auto) Absolute Neuts (auto) Chloride Carbon Dioxide BUN Creatinine 2.61 H POC Glucose 204 H 208 H Random Glucose Troponin I High Sens B-Natriuretic Peptide Urine Blood Urine RBC 09/18/21 09/18/21 09/18/21 11:06 15:56 20:05 WBC RBC Hgb Hct MCH RDW Neut % (Auto) Lymph % (Auto) [place] % (Auto) Lymph # (Auto) [place] # (Auto) Abs Immat Gran (auto) Absolute Neuts (auto) Chloride Carbon Dioxide BUN Creatinine POC Glucose 127 H 119 H 171 H Random Glucose Troponin I High Sens B-Natriuretic Peptide Urine Blood Urine RBC 09/19/21 09/19/21 09/19/21 05:37 05:37 11:11 WBC RBC Hgb Hct MCH RDW Neut % (Auto) Lymph % (Auto) [place] % (Auto) Lymph # (Auto) [place] # (Auto) Abs Immat Gran (auto) Absolute Neuts (auto) Chloride Carbon Dioxide BUN 82 H* Creatinine 2.84 H 2.77 H POC Glucose 184 H Random Glucose Troponin I High Sens B-Natriuretic Peptide Urine Blood Urine RBC Microbiology: Microbiology 09/16/21 21:44 Blood - Venous Blood Culture - Preliminary No growth after 48 hours. 09/16/21 21:44 Blood - Venous Blood Culture - Preliminary No growth after 48 hours. Assessment and Plan (1) Heart failure: Status: Acute (2) Abnormal CT scan, chest: Status: Acute (3) Dyspnea: Status: Acute Impression: 76-year-old gentleman with underlying greater 3 diastolic congestive heart failure admitted with slowly worsening dyspnea secondary to exacerbation of underlying congestive heart failure his CT chest has patchy bilateral ground-glass peribronchial vascular consistent with either pulmonary edema or pneumonia. Since patient does not have any clinical signs of pneumonia, no cough or sputum production, is normoxemic on room air, would consider edema from underlying heart failure to be the etiology of his CT chest findings. Recommendations: Agree with further diuresis. Procedures Date of Service Date of Service: 09/19/21
[2021-09-19 15:01] LABS: IgA 204 mg/dL (70-320); IgG 910 mg/dL (600-1540); IgM 205 mg/dL (50-300)
[2021-09-19 15:57] VITALS: BP 106/56; PULSE 80; RESP 17; TEMP 36.2; O2SAT 99
[2021-09-19 16:01] LABS: Calcium (PTHI) 9.6 mg/dL (8.6-10.3); PTHI 147 pg/mL (14-64)
[2021-09-19 16:59] LABS: Glucose, Whole Blood 154 mg/dL (60-115)
[2021-09-19 19:48] VITALS: BP 102/59; PULSE 78; RESP 19; TEMP 36.6; O2SAT 98
[2021-09-19 20:34] LABS: Glucose, Whole Blood 272 mg/dL (60-115)
[2021-09-19] MEDS: Atorvastatin Calcium 40 MG TABLET PO (21:15)
[2021-09-19 22:35] LABS: Vancomycin Trough 8.5 mcg/mL (10.0-20.0)
[2021-09-20] VITALS (7 sets, daily range): BP systolic 97–111; BP diastolic 56–63; PULSE 76–80; RESP 15–18; TEMP 36–36.9; O2SAT 95–100
[2021-09-20] MEDS: Piperacillin Sodium/Tazobactam 2.25 GM in 0.9 % Sodium Chloride 50 ML IV ×3 (06:21→23:53)
[2021-09-20 06:43] LABS: Creatinine Clr Calc Pharmacy 21.8; Estimated Glomerular Filt Rate 24
[2021-09-20 07:37] LABS: Glucose, Whole Blood 105 mg/dL (60-115)
[2021-09-20 07:51] LABS: Anion Gap 18 (12-20); Blood Urea Nitrogen 81 mg/dL (9-16); Carbon Dioxide 31 mmol/L (22-29); Chloride 91 mmol/L (96-108); Glucose Random 108 mg/dL (60-115); Potassium 2.9 mmol/L (3.3-5.1); Sodium 137 mmol/L (135-145)
[2021-09-20] MEDS: Apixaban 5 MG TABLET PO ×2 (08:30→21:03)
[2021-09-20] MEDS: Amiodarone HCL 200 MG TABLET PO (08:30)
[2021-09-20] MEDS: Furosemide 200 MG in 0.9 % Sodium Chloride 80 ML IVCONT (08:31)
[2021-09-20] MEDS: 0.9 % Sodium Chloride Flush 3 ML SYRINGE IVFLUSH ×2 (08:33→16:55)
--- NOTE | 2021-09-20 09:12 | PM.PNNEP ---
Subjective Subjective Date of Service: 09/20/21 Principal diagnosis: CKD , PNA, CHF Interval history: seen and examined, events noted no complaints Physical Exam Vital Signs: Vital Signs: Last Vital Signs Temp 98.2 F 09/20/21 07:25 Pulse 78 09/20/21 08:30 Resp 16 09/20/21 07:25 BP 111/59 L 09/20/21 08:30 Pulse Ox 99 09/20/21 07:25 Body Mass Index 28.6 Const: General: comfortable and no acute distress HENMT: Head: Yes normocephalic and Yes atraumatic Neck: Neck: Yes supple Resp: Auscultation: diminished lung sounds Cardio: Heart sounds: S1 normal heart sound present and S2 normal heart sound present Neuro: General: moves all extremities Extrem: General: Yes edema Objective Data Labs CBC & Chem 7: 09/17/21 06:03 09/20/21 05:55 Labs: Laboratory Results - last 24 hr 09/18/21 09/18/21 09/19/21 05:32 05:32 11:11 Sodium Potassium Chloride Carbon Dioxide Anion Gap BUN Creatinine Estim Creat Clear Calc Estimated GFR POC Glucose 184 H Random Glucose Calcium PTH Intact 147 H Calcium (PTH Intact) 9.6 Vancomycin Trough IgG Total 910 IgA Total 204 IgM 205 RODO Interpretation SEE NOTE 09/19/21 09/19/21 09/19/21 16:51 20:30 21:59 Sodium Potassium Chloride Carbon Dioxide Anion Gap BUN Creatinine Estim Creat Clear Calc Estimated GFR POC Glucose 154 H 272 H Random Glucose Calcium PTH Intact Calcium (PTH Intact) Vancomycin Trough 8.5 L IgG Total IgA Total IgM RODO Interpretation 09/20/21 09/20/21 05:55 07:24 Sodium 137 Potassium 2.9 L D Chloride 91 L Carbon Dioxide 31 H Anion Gap 18 BUN 81 H* Creatinine 2.67 H Estim Creat Clear Calc 21.8 Estimated GFR 24 POC Glucose 105 Random Glucose 108 Calcium 9.0 PTH Intact Calcium (PTH Intact) Vancomycin Trough IgG Total IgA Total IgM RODO Interpretation Microbiology Microbiology Results: Microbiology 09/16/21 21:44 Blood - Venous Blood Culture - Preliminary No growth after 48 hours. 09/16/21 21:44 Blood - Venous Blood Culture - Preliminary No growth after 48 hours. Procedures Date of Service Date of Service: 09/20/21 Assessment & Plan Assessment and plan (1) CKD (chronic kidney disease) stage 4, GFR 15-29 ml/min: Status: Acute (2) Hypokalemia: Status: Acute (3) Chronic heart failure with preserved ejection fraction (HFpEF): Status: Acute Assessment and Plan: advanced CKD due to DM/HTN baseline Scr 2.5-3 mg/dl minimal proteinuria normal renal US known diastolic HF volume status above dry weight REC replace potassium continue furosemide infusion follow kidney function and electrolytes Time Spent With Patient Time: Total time spent is greater than 50% in coordination of care (as documented) at patient's floor/unit and/or counseling patient: Progress Note: Quality Stroke Does the patient have a stroke diagnosis?: No
--- NOTE | 2021-09-20 09:14 | HO.PM.IMPN ---
Subjective Subjective Date of Service: 09/20/21 Interval History: Seen in f/u heart failure..he feels better today, no symptoms of PNA Review of Systems no fever sob no cough Physical Exam Vital Signs: Vital Signs: Last Vital Signs Temp 98.2 F 09/20/21 07:25 Pulse 78 09/20/21 08:30 Resp 16 09/20/21 07:25 BP 111/59 L 09/20/21 08:30 Pulse Ox 99 09/20/21 07:25 Body Mass Index 28.6 Const: Other: General: AO X 3, no acute distress Resp: CTA bilateral CVS: S1,S2,RRR, no JVD, 2+ankle edema GI: +BS, NT, no distention Skin: No rash Neuro: motor grossly intact Psych: appropriate affect Objective Data Active Medications Acetaminophen (Acetaminophen 325 Mg Tablet) 650 mg PO Q6H PRN PRN Reason: Pain, Mild (Pain Scale 1-3) Last Admin: 09/17/21 04:17 Dose: 650 mg Documented by: PING Albuterol/Ipratropium (Albuterol/Iprat 2.5/0.5mg 3 Ml Ampul.Neb) 3 ml INHALE Q4H PRN PRN Reason: Shortness of Breath/Wheezing Last Admin: 09/18/21 21:23 Dose: 3 ml Documented by: DIEGO Amiodarone HCl (Amiodarone Hcl 200 Mg Tablet) 200 mg PO DAILY [facility] Last Admin: 09/20/21 08:30 Dose: 200 mg Documented by: RYNE Apixaban (Apixaban 5 Mg Tablet) 5 mg PO BID [facility] Last Admin: 09/20/21 08:30 Dose: 5 mg Documented by: RYNE Atorvastatin Calcium (Atorvastatin Calcium 40 Mg Tablet) 40 mg PO BEDTIME [facility] Last Admin: 09/19/21 21:15 Dose: 40 mg Documented by: VICKI Dextrose (Dextrose 50 % 25 Gm/50 Ml Vial) 25 gm IVPUSH Q15M PRN; Protocol PRN Reason: per Hypoglycemia Standing Ord. Glucose (Glucose Gel 15 Gm Gel..Gram.) 15 gm PO Q15M PRN; Protocol PRN Reason: per Hypoglycemia Standing Ord. Piperacillin Sod/Tazobactam (Sod 2.25 gm/ Sodium Chloride) 50 mls @ 100 mls/hr IV Q8H [facility] Last Admin: 09/20/21 08:31 Dose: 100 mls/hr Documented by: RYNE Furosemide 200 mg/ Sodium (Chloride) 100 mls @ 5 mls/hr IVCONT .Q20H [facility] Last Admin: 09/20/21 08:31 Dose: 10 mg/hr, 5 mls/hr Documented by: RYNE Insulin Human Lispro (Insulin Lispro 100 Unit/Ml 3 Ml Vial) 0 unit SUBCUT QIDACHS [facility]; Protocol Last Admin: 09/20/21 08:19 Dose: Not Given Documented by: RYNE Non-Admin Reason: No Insulin Coverage Melatonin (Melatonin 3 Mg Tablet) 6 mg PO BEDTIME PRN PRN Reason: Insomnia Last Admin: 09/18/21 21:05 Dose: 6 mg Documented by: PING Pharmacy Consult (Consult Rx Perform Med Rec) 1 each MISCELLANE ONCE PRN PRN Reason: Consult order Pharmacy Consult (Consult Rx Vancomycin Dosing) 1 each MISCELLANE DAILY PRN PRN Reason: Consult order Pharmacy Consult (Consult Rx Perform Med Rec) 1 each MISCELLANE ONCE PRN PRN Reason: Consult order Senna (Sennosides 8.6 Mg Tablet) 17.2 mg PO BEDTIME PRN PRN Reason: Constipation Last Admin: 09/17/21 20:58 Dose: 17.2 mg Documented by: PING Sodium Chloride (0.9 % Sodium Chloride Flush 3 Ml Syringe) 3 ml IVFLUSH QSHIFT [facility] Last Admin: 09/20/21 08:33 Dose: 3 ml Documented by: RYNE Labs CBC & Chem 7: 09/17/21 06:03 09/20/21 05:55 Labs: Laboratory Results - last 24 hr 09/18/21 09/18/21 09/19/21 05:32 05:32 11:11 Anion Gap Estim Creat Clear Calc Estimated GFR POC Glucose 184 H Random Glucose Calcium PTH Intact 147 H Calcium (PTH Intact) 9.6 Vancomycin Trough IgG Total 910 IgA Total 204 IgM 205 RODO Interpretation SEE NOTE 09/19/21 09/19/21 09/19/21 16:51 20:30 21:59 Anion Gap Estim Creat Clear Calc Estimated GFR POC Glucose 154 H 272 H Random Glucose Calcium PTH Intact Calcium (PTH Intact) Vancomycin Trough 8.5 L IgG Total IgA Total IgM RODO Interpretation 09/20/21 09/20/21 05:55 07:24 Anion Gap 18 Estim Creat Clear Calc 21.8 Estimated GFR 24 POC Glucose 105 Random Glucose 108 Calcium 9.0 PTH Intact Calcium (PTH Intact) Vancomycin Trough IgG Total IgA Total IgM RODO Interpretation Assessment and Plan (1) Hypokalemia: Status: Acute (2) Heart failure: Status: Acute Assessment and Plan: 76-year-old male with a past medical history of hypertension, hyperlipidemia, diabetes, CAD, CHF, history of COVID-19 infection, obesity, obstructive sleep apnea, recent admission to the hospital for NSTEMI status post stress test; history of AFib on Eliquis, chronic kidney disease presented to the hospital with a chief complaint of shortness of breath.? Noted to have multifocal pneumonia on CT chest.? Admitted for further management. Dyspnea due to Heart failure--clnically improved, no hypoxia, continue treatment of underlying CHF ?PNA--What appear initially like pneumonia and met sepsis criteria now seems to be related to heart failure given no sings of pneumonia and improving with heart failure treatement. Will therefor discontinued antibitiocs on Pulmonology adfvise. Acute on chronic systolic heart failure-- -IV Lasix dose increased yesterday, monitor I/O, renal function, so far negative 1600 Elevated troponins:? likely from CKD, no chest pain, repeat Hypokalemia--from diuretics, K supplement Shoulder pain xray mild arthritis. CKD 3, stable there is NO OMRTEZA, being worked up for pulmonary renal syndrome Diabetes:? Insulin sliding scale. Chronic AFib:? Rate controlled.? Continue home Eliquis. resume amio Code status:? Full code Quality Stroke Does the patient have a stroke diagnosis?: No VTE Prior VTE?: No VTE Risk Level:: Medical - moderate - high VTE Device Contraindication: Treatment Not Indicated VTE Drug Contraindication: N/A - Med Ordered
[2021-09-20] MEDS: Potassium Chloride Packet 20 MEQ PACKET 40 MEQ PO (09:58)
[2021-09-20 11:29] LABS: Glucose, Whole Blood 247 mg/dL (60-115)
--- NOTE | 2021-09-20 12:33 | PM.PNCARD ---
Subjective Subjective Date of Service: 09/20/21 Principal diagnosis: CKD , PNA, CHF Interval history: Breathing is improving. Diuresing better with the Lasix drip. Potassium is low. Physical Exam Vital Signs: Last Vital Signs Temp 97.9 F 09/20/21 11:19 Pulse 80 09/20/21 11:19 Resp 16 09/20/21 11:19 BP 99/61 09/20/21 11:19 Pulse Ox 95 09/20/21 11:19 Body Mass Index 28.6 GENERAL APPEARANCE: in no acute distress, pleasant. NECK: no carotid bruit, positive JVD. SKIN: no suspicious lesions, warm and dry. HEART: no murmurs, regular rate and rhythm. LUNGS: clear to auscultation bilaterally. ABDOMEN: soft, nontender. EXTREMITIES:? 1+ edema. PERIPHERAL PULSES: equal. NEUROLOGIC: No gross deficits, AAO X 3 Results Labs and Meds Result diagrams: 09/17/21 06:03 09/20/21 05:55 Lab results: Laboratory Results - last 24 hr 09/18/21 09/18/21 09/19/21 05:32 05:32 16:51 Sodium Potassium Chloride Carbon Dioxide Anion Gap BUN Creatinine Estim Creat Clear Calc Estimated GFR POC Glucose 154 H Random Glucose Calcium PTH Intact 147 H Calcium (PTH Intact) 9.6 Vancomycin Trough IgG Total 910 IgA Total 204 IgM 205 RODO Interpretation SEE NOTE 09/19/21 09/19/21 09/20/21 20:30 21:59 05:55 Sodium 137 Potassium 2.9 L D Chloride 91 L Carbon Dioxide 31 H Anion Gap 18 BUN 81 H* Creatinine 2.67 H Estim Creat Clear Calc 21.8 Estimated GFR 24 POC Glucose 272 H Random Glucose 108 Calcium 9.0 PTH Intact Calcium (PTH Intact) Vancomycin Trough 8.5 L IgG Total IgA Total IgM RODO Interpretation 09/20/21 09/20/21 07:24 11:17 Sodium Potassium Chloride Carbon Dioxide Anion Gap BUN Creatinine Estim Creat Clear Calc Estimated GFR POC Glucose 105 247 H Random Glucose Calcium PTH Intact Calcium (PTH Intact) Vancomycin Trough IgG Total IgA Total IgM RODO Interpretation Progress Note: A&P Assessment and plan (1) Acute on chronic diastolic (congestive) heart failure: Status: Acute Assessment and Plan: Pleasant 76-year-old gentleman with congestive heart failure was admitted with acute on chronic congestive heart failure pneumonia. He is on antibiotics. Clinically he is still volume overloaded. I think we continue the Lasix drip. Wednesday we can check his readings on the CardioMEMS also. Continue to hold hydralazine as blood pressure has been low. Monitor potassium closely and I think he should have repeat potassium in the evening to make sure it is rising. Thank you for allowing me to participate in the care of your patient. Please feel free to contact me if you have any questions. Fall Risk Details Current Medications: Current Medications Acetaminophen (Acetaminophen 325 Mg Tablet) 650 mg PO Q6H PRN PRN Reason: Pain, Mild (Pain Scale 1-3) Last Admin: 09/17/21 04:17 Dose: 650 mg Documented by: Albuterol/Ipratropium (Albuterol/Iprat 2.5/0.5mg 3 Ml Ampul.Neb) 3 ml INHALE Q4H PRN PRN Reason: Shortness of Breath/Wheezing Last Admin: 09/18/21 21:23 Dose: 3 ml Documented by: Amiodarone HCl (Amiodarone Hcl 200 Mg Tablet) 200 mg PO DAILY [facility] Last Admin: 09/20/21 08:30 Dose: 200 mg Documented by: Apixaban (Apixaban 5 Mg Tablet) 5 mg PO BID [facility] Last Admin: 09/20/21 08:30 Dose: 5 mg Documented by: Atorvastatin Calcium (Atorvastatin Calcium 40 Mg Tablet) 40 mg PO BEDTIME [facility] Last Admin: 09/19/21 21:15 Dose: 40 mg Documented by: Dextrose (Dextrose 50 % 25 Gm/50 Ml Vial) 25 gm IVPUSH Q15M PRN; Protocol PRN Reason: per Hypoglycemia Standing Ord. Glucose (Glucose Gel 15 Gm Gel..Gram.) 15 gm PO Q15M PRN; Protocol PRN Reason: per Hypoglycemia Standing Ord. Piperacillin Sod/Tazobactam (Sod 2.25 gm/ Sodium Chloride) 50 mls @ 100 mls/hr IV Q8H [facility] Last Infusion: 09/20/21 09:55 Dose: Infused Documented by: Furosemide 200 mg/ Sodium (Chloride) 100 mls @ 5 mls/hr IVCONT .Q20H [facility] Last Admin: 09/20/21 08:31 Dose: 10 mg/hr, 5 mls/hr Documented by: Insulin Human Lispro (Insulin Lispro 100 Unit/Ml 3 Ml Vial) 0 unit SUBCUT QIDACHS [facility]; Protocol Last Admin: 09/20/21 08:19 Dose: Not Given Documented by: Melatonin (Melatonin 3 Mg Tablet) 6 mg PO BEDTIME PRN PRN Reason: Insomnia Last Admin: 09/18/21 21:05 Dose: 6 mg Documented by: Pharmacy Consult (Consult Rx Perform Med Rec) 1 each MISCELLANE ONCE PRN PRN Reason: Consult order Pharmacy Consult (Consult Rx Vancomycin Dosing) 1 each MISCELLANE DAILY PRN PRN Reason: Consult order Pharmacy Consult (Consult Rx Perform Med Rec) 1 each MISCELLANE ONCE PRN PRN Reason: Consult order Senna (Sennosides 8.6 Mg Tablet) 17.2 mg PO BEDTIME PRN PRN Reason: Constipation Last Admin: 09/17/21 20:58 Dose: 17.2 mg Documented by: Sodium Chloride (0.9 % Sodium Chloride Flush 3 Ml Syringe) [address] [facility] Last Admin: 09/20/21 08:33 Dose: 3 ml Documented by: Time Spent With Patient Time: Total time spent is greater than 50% in coordination of care (as documented) at patient's floor/unit and/or counseling patient: Time with patient: 15 - 24 minutes Progress Note: Quality Stroke Does the patient have a stroke diagnosis?: No Procedures Date of Service Date of Service: 09/20/21
[2021-09-20] MEDS: Insulin Lispro 100 UNIT/ML 3 ML VIAL SUBCUT ×3 (12:39→21:03)
[2021-09-20 16:24] LABS: Glucose, Whole Blood 196 mg/dL (60-115)
[2021-09-20 20:11] LABS: Glucose, Whole Blood 233 mg/dL (60-115)
[2021-09-20] MEDS: Atorvastatin Calcium 40 MG TABLET PO (21:02)
[2021-09-20] MEDS: Sennosides 8.6 MG TABLET 17.2 MG PO (21:07)
[2021-09-20] MEDS: Acetaminophen 325 MG TABLET 650 MG PO (21:07)
[2021-09-21] VITALS (10 sets, daily range): BP systolic 82–106; BP diastolic 50–65; PULSE 68–100; RESP 15–16; TEMP 36–36.7; O2SAT 98–100
[2021-09-21] MEDS: Furosemide 200 MG in 0.9 % Sodium Chloride 80 ML IVCONT ×2 (00:38→21:54)
[2021-09-21] MEDS: Piperacillin Sodium/Tazobactam 2.25 GM in 0.9 % Sodium Chloride 50 ML IV (06:35)
[2021-09-21 07:35] LABS: Glucose, Whole Blood 152 mg/dL (60-115)
[2021-09-21 08:08] LABS: Anion Gap 21 (12-20); Blood Urea Nitrogen 81 mg/dL (9-16); Calcium 8.9 mg/dL (8.4-10.2); Carbon Dioxide 30 mmol/L (22-29); Chloride 92 mmol/L (96-108); Creatinine Clr Calc Pharmacy 21.6; Estimated Glomerular Filt Rate 23; Glucose Random 161 mg/dL (60-115); Potassium 2.7 mmol/L (3.3-5.1); Sodium 140 mmol/L (135-145)
--- NOTE | 2021-09-21 08:44 | PM.PNNEP ---
Subjective Subjective Date of Service: 09/21/21 Principal diagnosis: CKD , PNA, CHF Interval history: seen and examined sitting out of bed feels better Physical Exam Vital Signs: Vital Signs: Last Vital Signs Temp 98.1 F 09/21/21 07:11 Pulse 81 09/21/21 07:11 Resp 16 09/21/21 07:11 BP 102/54 L 09/21/21 07:11 Pulse Ox 100 09/21/21 07:11 Body Mass Index 28.6 Const: General: comfortable and no acute distress HENMT: Head: Yes normocephalic and Yes atraumatic Neck: Neck: Yes supple Resp: Auscultation: diminished lung sounds Cardio: Heart sounds: S1 normal heart sound present and S2 normal heart sound present Neuro: General: moves all extremities Extrem: General: Yes edema Objective Data Labs CBC & Chem 7: 09/17/21 06:03 09/21/21 07:28 Labs: Laboratory Results - last 24 hr 09/20/21 09/20/21 09/20/21 11:17 16:17 19:59 Sodium Potassium Chloride Carbon Dioxide Anion Gap BUN Creatinine Estim Creat Clear Calc Estimated GFR POC Glucose 247 H 196 H 233 H Random Glucose Calcium 09/21/21 09/21/21 07:09 07:28 Sodium 140 Potassium 2.7 L Chloride 92 L Carbon Dioxide 30 H Anion Gap 21 H BUN 81 H* Creatinine 2.69 H Estim Creat Clear Calc 21.6 Estimated GFR 23 POC Glucose 152 H Random Glucose 161 H D Calcium 8.9 Microbiology Microbiology Results: Microbiology 09/16/21 21:44 Blood - Venous Blood Culture - Preliminary No growth after 48 hours. 09/16/21 21:44 Blood - Venous Blood Culture - Preliminary No growth after 48 hours. Procedures Date of Service Date of Service: 09/21/21 Assessment & Plan Assessment and plan (1) CKD (chronic kidney disease) stage 4, GFR 15-29 ml/min: Status: Acute (2) Hypokalemia: Status: Acute (3) Chronic heart failure with preserved ejection fraction (HFpEF): Status: Acute Assessment and Plan: kidney function at baseline advanced CKD due to DM/HTN baseline Scr 2.5-3 mg/dl minimal proteinuria normal renal US known diastolic HF volume status remains above dry weight REC replace potassium continue furosemide infusion follow kidney function and electrolytes Time Spent With Patient Time: Total time spent is greater than 50% in coordination of care (as documented) at patient's floor/unit and/or counseling patient: Progress Note: Quality Stroke Does the patient have a stroke diagnosis?: No
--- NOTE | 2021-09-21 08:48 | HO.PM.IMPN ---
Subjective Subjective Date of Service: 09/21/21 Interval History: Seen in f/u heart failure..feels better, no sob, swelling better, low k Review of Systems no fever sob no cough Physical Exam Vital Signs: Vital Signs: Last Vital Signs Temp 98.1 F 09/21/21 07:11 Pulse 81 09/21/21 07:11 Resp 16 09/21/21 07:11 BP 102/54 L 09/21/21 07:11 Pulse Ox 100 09/21/21 07:11 Body Mass Index 28.6 Const: Other: General: AO X 3, no acute distress Resp: CTA bilateral CVS: S1,S2,RRR, no JVD, 2+ankle edema GI: +BS, NT, no distention Skin: No rash Neuro: motor grossly intact Psych: appropriate affect Objective Data Active Medications Acetaminophen (Acetaminophen 325 Mg Tablet) 650 mg PO Q6H PRN PRN Reason: Pain, Mild (Pain Scale 1-3) Last Admin: 09/20/21 21:07 Dose: 650 mg Documented by: VICKI Albuterol/Ipratropium (Albuterol/Iprat 2.5/0.5mg 3 Ml Ampul.Neb) 3 ml INHALE Q4H PRN PRN Reason: Shortness of Breath/Wheezing Last Admin: 09/18/21 21:23 Dose: 3 ml Documented by: DIEGO Amiodarone HCl (Amiodarone Hcl 200 Mg Tablet) 200 mg PO DAILY [facility] Last Admin: 09/20/21 08:30 Dose: 200 mg Documented by: RYNE Apixaban (Apixaban 5 Mg Tablet) 5 mg PO BID [facility] Last Admin: 09/20/21 21:03 Dose: 5 mg Documented by: VICKI Atorvastatin Calcium (Atorvastatin Calcium 40 Mg Tablet) 40 mg PO BEDTIME [facility] Last Admin: 09/20/21 21:02 Dose: 40 mg Documented by: VICKI Dextrose (Dextrose 50 % 25 Gm/50 Ml Vial) 25 gm IVPUSH Q15M PRN; Protocol PRN Reason: per Hypoglycemia Standing Ord. Glucose (Glucose Gel 15 Gm Gel..Gram.) 15 gm PO Q15M PRN; Protocol PRN Reason: per Hypoglycemia Standing Ord. Piperacillin Sod/Tazobactam (Sod 2.25 gm/ Sodium Chloride) 50 mls @ 100 mls/hr IV Q8H [facility] Last Infusion: 09/21/21 07:11 Dose: 0 mls/hr Documented by: RYNE Furosemide 200 mg/ Sodium (Chloride) 100 mls @ 5 mls/hr IVCONT .Q20H [facility] Last Admin: 09/21/21 00:38 Dose: 10 mg/hr, 5 mls/hr Documented by: VICKI Insulin Human Lispro (Insulin Lispro 100 Unit/Ml 3 Ml Vial) 0 unit SUBCUT QIDACHS [facility]; Protocol Last Admin: 09/20/21 21:03 Dose: 4 unit Documented by: VICKI Melatonin (Melatonin 3 Mg Tablet) 6 mg PO BEDTIME PRN PRN Reason: Insomnia Last Admin: 09/18/21 21:05 Dose: 6 mg Documented by: PING Pharmacy Consult (Consult Rx Perform Med Rec) 1 each MISCELLANE ONCE PRN PRN Reason: Consult order Pharmacy Consult (Consult Rx Vancomycin Dosing) 1 each MISCELLANE DAILY PRN PRN Reason: Consult order Pharmacy Consult (Consult Rx Perform Med Rec) 1 each MISCELLANE ONCE PRN PRN Reason: Consult order Potassium Chloride (Potassium Chloride Er 20 Meq Tab.Er.Prt) 40 meq PO ONCE ONE Stop: 09/21/21 17:01 Senna (Sennosides 8.6 Mg Tablet) 17.2 mg PO BEDTIME PRN PRN Reason: Constipation Last Admin: 09/20/21 21:07 Dose: 17.2 mg Documented by: VICKI Sodium Chloride (0.9 % Sodium Chloride Flush 3 Ml Syringe) 3 ml IVFLUSH QSHIFT [facility] Last Admin: 09/21/21 00:27 Dose: Not Given Documented by: VICKI Non-Admin Reason: IV Running Labs CBC & Chem 7: 09/17/21 06:03 09/21/21 07:28 Labs: Laboratory Results - last 24 hr 09/20/21 09/20/21 09/20/21 11:17 16:17 19:59 Anion Gap Estim Creat Clear Calc Estimated GFR POC Glucose 247 H 196 H 233 H Random Glucose Calcium 09/21/21 09/21/21 07:09 07:28 Anion Gap 21 H Estim Creat Clear Calc 21.6 Estimated GFR 23 POC Glucose 152 H Random Glucose 161 H D Calcium 8.9 Assessment and Plan (1) CKD (chronic kidney disease) stage 4, GFR 15-29 ml/min: Status: Acute (2) Acute on chronic diastolic (congestive) heart failure: Status: Acute Assessment and Plan: 76-year-old male with a past medical history of hypertension, hyperlipidemia, diabetes, CAD, CHF, history of COVID-19 infection, obesity, obstructive sleep apnea, recent admission to the hospital for NSTEMI status post stress test; history of AFib on Eliquis, chronic kidney disease presented to the hospital with a chief complaint of shortness of breath.? Noted to have multifocal pneumonia on CT chest.? Admitted for further management. Dyspnea due to Heart failure--clnically improved, no hypoxia, continue treatment of underlying CHF ?PNA--What appear initially like pneumonia and met sepsis criteria now seems to be related to heart failure given no sings of pneumonia and improving with heart failure treatement. Stop antibiotics Acute on chronic systolic heart failure-- -IV Lasix dose increased yesterday, monitor I/O, renal function, so far negative 2400 -replace K Elevated troponins:? likely from CKD, no chest pain, repeat Hypokalemia--from diuretics, K supplement IV and PO, check magnesium Shoulder pain xray mild arthritis. CKD 3, stable there is NO MORTEZA, being worked up for pulmonary renal syndrome Diabetes:? Insulin sliding scale. Chronic AFib:? Rate controlled.? Continue home Eliquis, continue amio Code status:? Full code Quality Stroke Does the patient have a stroke diagnosis?: No VTE Prior VTE?: No VTE Risk Level:: Medical - moderate - high VTE Device Contraindication: Treatment Not Indicated VTE Drug Contraindication: N/A - Med Ordered
[2021-09-21] MEDS: Apixaban 5 MG TABLET PO ×2 (08:49→20:49)
[2021-09-21] MEDS: Potassium Chloride ER 20 MEQ TAB.ER.PRT 40 MEQ PO ×2 (08:49→16:31)
[2021-09-21] MEDS: Amiodarone HCL 200 MG TABLET PO (08:49)
[2021-09-21] MEDS: 0.9 % Sodium Chloride Flush 3 ML SYRINGE IVFLUSH ×2 (08:50→17:09)
[2021-09-21] MEDS: Insulin Lispro 100 UNIT/ML 3 ML VIAL SUBCUT ×4 (08:52→20:49)
--- NOTE | 2021-09-21 09:03 | P.PNCA_ITS ---
Subjective Subjective Date of Service: 09/21/21 Principal diagnosis: CKD , PNA, CHF Interval history: Saying he had some SOB overnight. Still volume overloaded. Physical Exam Vital Signs: Last Vital Signs Temp 98.1 F 09/21/21 07:11 Pulse 81 09/21/21 08:49 Resp 16 09/21/21 07:11 BP 102/54 L 09/21/21 08:49 Pulse Ox 100 09/21/21 07:11 Body Mass Index 28.6 GENERAL APPEARANCE: in no acute distress, pleasant. NECK: no carotid bruit, positive JVD. SKIN: no suspicious lesions, warm and dry. HEART: no murmurs, regular rate and rhythm. LUNGS: clear to auscultation bilaterally. ABDOMEN: soft, nontender. EXTREMITIES:? 1+ edema. PERIPHERAL PULSES: equal. NEUROLOGIC: No gross deficits, AAO X 3 Results Labs and Meds Result diagrams: 09/17/21 06:03 09/21/21 07:28 Lab results: Laboratory Results - last 24 hr 09/20/21 09/20/21 09/20/21 11:17 16:17 19:59 Sodium Potassium Chloride Carbon Dioxide Anion Gap BUN Creatinine Estim Creat Clear Calc Estimated GFR POC Glucose 247 H 196 H 233 H Random Glucose Calcium 09/21/21 09/21/21 07:09 07:28 Sodium 140 Potassium 2.7 L Chloride 92 L Carbon Dioxide 30 H Anion Gap 21 H BUN 81 H* Creatinine 2.69 H Estim Creat Clear Calc 21.6 Estimated GFR 23 POC Glucose 152 H Random Glucose 161 H D Calcium 8.9 Progress Note: A&P Assessment and plan (1) CKD (chronic kidney disease) stage 4, GFR 15-29 ml/min: Status: Acute (2) Acute on chronic diastolic (congestive) heart failure: Status: Acute (3) Hypokalemia: Status: Acute Assessment and Plan: 76 year old gentleman with acute on chronic diastolic CHF and PNA. On Abx. On lasix gtt and improving. Potassium low. Added 2 doses of KCl. Please monitor potassium and magnesium closely. Fall Risk Details Current Medications: Current Medications Acetaminophen (Acetaminophen 325 Mg Tablet) 650 mg PO Q6H PRN PRN Reason: Pain, Mild (Pain Scale 1-3) Last Admin: 09/20/21 21:07 Dose: 650 mg Documented by: Albuterol/Ipratropium (Albuterol/Iprat 2.5/0.5mg 3 Ml Ampul.Neb) 3 ml INHALE Q4H PRN PRN Reason: Shortness of Breath/Wheezing Last Admin: 09/18/21 21:23 Dose: 3 ml Documented by: Amiodarone HCl (Amiodarone Hcl 200 Mg Tablet) 200 mg PO DAILY [facility] Last Admin: 09/21/21 08:49 Dose: 200 mg Documented by: Apixaban (Apixaban 5 Mg Tablet) 5 mg PO BID [facility] Last Admin: 09/21/21 08:49 Dose: 5 mg Documented by: Atorvastatin Calcium (Atorvastatin Calcium 40 Mg Tablet) 40 mg PO BEDTIME [facility] Last Admin: 09/20/21 21:02 Dose: 40 mg Documented by: Dextrose (Dextrose 50 % 25 Gm/50 Ml Vial) 25 gm IVPUSH Q15M PRN; Protocol PRN Reason: per Hypoglycemia Standing Ord. Glucose (Glucose Gel 15 Gm Gel..Gram.) 15 gm PO Q15M PRN; Protocol PRN Reason: per Hypoglycemia Standing Ord. Furosemide 200 mg/ Sodium (Chloride) 100 mls @ 5 mls/hr IVCONT .Q20H [facility] Last Admin: 09/21/21 00:38 Dose: 10 mg/hr, 5 mls/hr Documented by: Potassium Chloride () 10 meq in 100 mls @ 100 mls/hr IV Q1H [facility] Stop: 09/21/21 10:59 Insulin Human Lispro (Insulin Lispro 100 Unit/Ml 3 Ml Vial) 0 unit SUBCUT QIDACHS [facility]; Protocol Last Admin: 09/21/21 08:52 Dose: 2 unit Documented by: Melatonin (Melatonin 3 Mg Tablet) 6 mg PO BEDTIME PRN PRN Reason: Insomnia Last Admin: 09/18/21 21:05 Dose: 6 mg Documented by: Pharmacy Consult (Consult Rx Perform Med Rec) 1 each MISCELLANE ONCE PRN PRN Reason: Consult order Pharmacy Consult (Consult Rx Vancomycin Dosing) 1 each MISCELLANE DAILY PRN PRN Reason: Consult order Pharmacy Consult (Consult Rx Perform Med Rec) 1 each MISCELLANE ONCE PRN PRN Reason: Consult order Potassium Chloride (Potassium Chloride Er 20 Meq Tab.Er.Prt) 40 meq PO ONCE ONE Stop: 09/21/21 17:01 Potassium Chloride (Potassium Chloride Packet 20 Meq Packet) 40 meq PO Q8H [facility] Stop: 09/21/21 16:46 Senna (Sennosides 8.6 Mg Tablet) 17.2 mg PO BEDTIME PRN PRN Reason: Constipation Last Admin: 09/20/21 21:07 Dose: 17.2 mg Documented by: Sodium Chloride (0.9 % Sodium Chloride Flush 3 Ml Syringe) 3 ml IVFLUSH QSHIFT [facility] Last Admin: 09/21/21 08:50 Dose: 3 ml Documented by: Time Spent With Patient Time: Total time spent is greater than 50% in coordination of care (as documented) at patient's floor/unit and/or counseling patient: Time with patient: 15 - 24 minutes Progress Note: Quality Stroke Does the patient have a stroke diagnosis?: No Procedures Date of Service Date of Service: 09/21/21
[2021-09-21 09:04] LABS: Magnesium 2.3 mg/dL (1.6-2.6)
[2021-09-21] MEDS: Potassium Chloride/H20 10 MEQ/100 ML PIGGYBACK 100 MEQ IV ×2 (09:26→10:35)
[2021-09-21] MEDS: Potassium Chloride Packet 20 MEQ PACKET 40 MEQ PO ×2 (09:26→16:33)
[2021-09-21 11:48] LABS: Glucose, Whole Blood 237 mg/dL (60-115)
[2021-09-21 15:31] LABS: Anion Gap 20 (12-20); Carbon Dioxide 28 mmol/L (22-29); Chloride 94 mmol/L (96-108); Potassium 4.3 mmol/L (3.3-5.1); Sodium 138 mmol/L (135-145)
[2021-09-21 16:20] LABS: Glucose, Whole Blood 254 mg/dL (60-115)
[2021-09-21] MEDS: polyethylene glycoL 3350 17 GM POWD.PACK PO (16:31)
[2021-09-21 19:52] LABS: Anti Nuclear Antibody Screen NEGATIVE (NEGATIVE)
[2021-09-21 20:01] LABS: Glucose, Whole Blood 182 mg/dL (60-115)
[2021-09-21] MEDS: Atorvastatin Calcium 40 MG TABLET PO (20:49)
[2021-09-22] VITALS (7 sets, daily range): BP systolic 101–116; BP diastolic 55–63; PULSE 76–97; RESP 16–18; TEMP 36–36.7; O2SAT 96–99
[2021-09-22 05:30] LABS: Anion Gap 22 (12-20); Blood Urea Nitrogen 79 mg/dL (9-16); Calcium 9.2 mg/dL (8.4-10.2); Carbon Dioxide 27 mmol/L (22-29); Chloride 94 mmol/L (96-108); Creatinine Clr Calc Pharmacy 21.8; Estimated Glomerular Filt Rate 24; Glucose Random 165 mg/dL (60-115); Sodium 139 mmol/L (135-145)
[2021-09-22 07:28] LABS: Glucose, Whole Blood 159 mg/dL (60-115)
[2021-09-22 07:40] LABS: B Type Natriuretic Peptide 1739 pg/mL (<100)
[2021-09-22] MEDS: Apixaban 5 MG TABLET PO ×2 (07:40→21:09)
[2021-09-22] MEDS: Amiodarone HCL 200 MG TABLET PO (07:40)
[2021-09-22] MEDS: 0.9 % Sodium Chloride Flush 3 ML SYRINGE IVFLUSH (07:41)
[2021-09-22] MEDS: Insulin Lispro 100 UNIT/ML 3 ML VIAL SUBCUT ×3 (07:41→17:16)
--- NOTE | 2021-09-22 10:17 | P.PNCA_ITS ---
Subjective Subjective Date of Service: 09/22/21 Principal diagnosis: CKD , PNA, CHF Interval history: Patient says that he is improving with leg edema improving. His breathing seems to be improving as per him. Totally appears to be -3300 mL cumulative. Currently still on Lasix drip. BNP is in the 1700 range Review of Systems Constitutional: Reports no additional constitutional complaints Cardiovascular: Reports leg edema and Reports dyspnea Respiratory: Reports no additional respiratory complaints and Reports dyspnea Gastrointestinal: Reports no additional gastrointestinal complaints Musculoskeletal: Reports no additional musculoskeletal complaints Reports system reviewed and no additional complaints, except as documented Psychiatric: Reports no additional psychiatric complaints Endocrine: Reports no additional endocrine complaints Physical Exam Vital Signs: Last Vital Signs Temp 97.1 F 09/22/21 08:00 Pulse 94 09/22/21 08:00 Resp 16 09/22/21 08:00 BP 101/63 09/22/21 08:00 Pulse Ox 97 09/22/21 08:00 Body Mass Index 28.6 Neck Neck: Yes trachea midline, Yes supple and Yes JVD Resp Effort & Inspection: normal respiratory effort Auscultation: crackles Cardio Jugular venous distension: JVD Palpation: normal PMI Rate: regular rate Rhythm: regular rhythm Heart sounds: S1 normal heart sound present, S2 normal heart sound present, no click, no gallops and no murmurs GI Auscultation: normal bowel sounds Skin General skin exam: no rashes or lesions noted Extrem General: No clubbing, No cyanosis and Yes edema Results Labs and Meds Result diagrams: 09/17/21 06:03 09/22/21 04:53 Lab results: Laboratory Results - last 24 hr 09/19/21 09/21/21 09/21/21 11:48 11:27 15:05 Sodium 138 Potassium 4.3 D Chloride 94 L Carbon Dioxide 28 Anion Gap 20 BUN Creatinine Estim Creat Clear Calc Estimated GFR POC Glucose 237 H Random Glucose Calcium B-Natriuretic Peptide ELIZABETH Screen NEGATIVE ELIZABETH Titer TNP ELIZABETH Titer 2 TNP ELIZABETH Titer 3 TNP ELIZABETH Pattern TNP ELIZABETH Pattern 2 TNP ELIZABETH Pattern 3 TNP 09/21/21 09/21/21 09/22/21 16:15 19:47 04:53 Sodium 139 Potassium 4.0 Chloride 94 L Carbon Dioxide 27 Anion Gap 22 H BUN 79 H Creatinine 2.67 H Estim Creat Clear Calc 21.8 Estimated GFR 24 POC Glucose 254 H 182 H Random Glucose 165 H Calcium 9.2 B-Natriuretic Peptide ELIZABETH Screen ELIZABETH Titer ELIZABETH Titer 2 ELIZABETH Titer 3 ELIZABETH Pattern ELIZABETH Pattern 2 ELIZABETH Pattern 3 09/22/21 09/22/21 04:53 07:05 Sodium Potassium Chloride Carbon Dioxide Anion Gap BUN Creatinine Estim Creat Clear Calc Estimated GFR POC Glucose 159 H Random Glucose Calcium B-Natriuretic Peptide 1739 H ELIZABETH Screen ELIZABETH Titer ELIZABETH Titer 2 ELIZABETH Titer 3 ELIZABETH Pattern ELIZABETH Pattern 2 ELIZABETH Pattern 3 Progress Note: A&P Assessment and plan (1) Acute on chronic diastolic (congestive) heart failure: Status: Acute Assessment and Plan: Slowly responding diastolic heart failure with IV Lasix. Continue IV Lasix drip. Add low-dose metolazone to his regimen for today, 2.5 mg. Strict intake and output chart needs to be pursued. Blood pressure is well optimized. Contin ue to trend BNP. Replace electrolytes as needed. Will follow with you. (2) PAF (paroxysmal atrial fibrillation): Status: Acute Assessment and Plan: Paroxysmal atrial fibrillation which has remained suppressed. Continue amiodarone therapy. Continue full oral anticoagulation with Eliquis. Will follow with the Fall Risk Details Current Medications: Current Medications Acetaminophen (Acetaminophen 325 Mg Tablet) 650 mg PO Q6H PRN PRN Reason: Pain, Mild (Pain Scale 1-3) Last Admin: 09/20/21 21:07 Dose: 650 mg Documented by: Albuterol/Ipratropium (Albuterol/Iprat 2.5/0.5mg 3 Ml Ampul.Neb) 3 ml INHALE Q4H PRN PRN Reason: Shortness of Breath/Wheezing Last Admin: 09/18/21 21:23 Dose: 3 ml Documented by: Amiodarone HCl (Amiodarone Hcl 200 Mg Tablet) 200 mg PO DAILY [facility] Last Admin: 09/22/21 07:40 Dose: 200 mg Documented by: Apixaban (Apixaban 5 Mg Tablet) 5 mg PO BID [facility] Last Admin: 09/22/21 07:40 Dose: 5 mg Documented by: Atorvastatin Calcium (Atorvastatin Calcium 40 Mg Tablet) 40 mg PO BEDTIME [facility] Last Admin: 09/21/21 20:49 Dose: 40 mg Documented by: Dextrose (Dextrose 50 % 25 Gm/50 Ml Vial) 25 gm IVPUSH Q15M PRN; Protocol PRN Reason: per Hypoglycemia Standing Ord. Glucose (Glucose Gel 15 Gm Gel..Gram.) 15 gm PO Q15M PRN; Protocol PRN Reason: per Hypoglycemia Standing Ord. Furosemide 200 mg/ Sodium (Chloride) 100 mls @ 5 mls/hr IVCONT .Q20H [facility] Last Admin: 09/21/21 21:54 Dose: 10 mg/hr, 5 mls/hr Documented by: Insulin Human Lispro (Insulin Lispro 100 Unit/Ml 3 Ml Vial) 0 unit SUBCUT QIDACHS [facility]; Protocol Last Admin: 09/22/21 07:41 Dose: 2 unit Documented by: Magnesium Hydroxide (Milk Of Magnesia 30 Ml Oral.Susp) 30 ml PO DAILY PRN PRN Reason: Constipation Melatonin (Melatonin 3 Mg Tablet) 6 mg PO BEDTIME PRN PRN Reason: Insomnia Last Admin: 09/18/21 21:05 Dose: 6 mg Documented by: Pharmacy Consult (Consult Rx Perform Med Rec) 1 each MISCELLANE ONCE PRN PRN Reason: Consult order Pharmacy Consult (Consult Rx Vancomycin Dosing) 1 each MISCELLANE DAILY PRN PRN Reason: Consult order Pharmacy Consult (Consult Rx Perform Med Rec) 1 each MISCELLANE ONCE PRN PRN Reason: Consult order Senna (Sennosides 8.6 Mg Tablet) 17.2 mg PO BEDTIME PRN PRN Reason: Constipation Last Admin: 09/20/21 21:07 Dose: 17.2 mg Documented by: Sodium Chloride (0.9 % Sodium Chloride Flush 3 Ml Syringe) [facility] Last Admin: 09/22/21 07:41 Dose: 3 ml Documented by: Time Spent With Patient Time: Total time spent is greater than 50% in coordination of care (as documented) at patient's floor/unit and/or counseling patient: Time with patient: 25 - 35 minutes Progress Note: Quality Stroke Does the patient have a stroke diagnosis?: No Procedures Date of Service Date of Service: 09/22/21
[2021-09-22] MEDS: Furosemide 200 MG in 0.9 % Sodium Chloride 80 ML IVCONT (10:30)
[2021-09-22 11:20] LABS: Glucose, Whole Blood 172 mg/dL (60-115)
--- NOTE | 2021-09-22 11:57 | PM.PNNEP ---
Subjective Subjective Date of Service: 09/22/21 Principal diagnosis: CKD , PNA, CHF Interval history: feels better. Seen AM. Events noted. All recent data reviewed Physical Exam Vital Signs: Vital Signs: Last Vital Signs Temp 98.1 F 09/22/21 11:11 Pulse 76 09/22/21 11:11 Resp 18 09/22/21 11:11 BP 116/57 L 09/22/21 11:11 Pulse Ox 96 09/22/21 11:11 Body Mass Index 28.6 Const: General: no acute distress Orientation/consciousness: patient oriented x3 Eyes: EOM: EOMs intact bilaterally Neck: Neck: Yes supple Resp: Auscultation: diminished lung sounds Cardio: Heart sounds: no rubs GI: Palpation (GI): Soft to palpation Neuro: General: patient oriented x3 and moves all extremities Objective Data Labs CBC & Chem 7: 09/17/21 06:03 09/22/21 04:53 Labs: Laboratory Results - last 24 hr 09/19/21 09/21/21 09/21/21 11:48 15:05 16:15 Sodium 138 Potassium 4.3 D Chloride 94 L Carbon Dioxide 28 Anion Gap 20 BUN Creatinine Estim Creat Clear Calc Estimated GFR POC Glucose 254 H Random Glucose Calcium B-Natriuretic Peptide ELIZABETH Screen NEGATIVE ELIZABETH Titer TNP ELIZABETH Titer 2 TNP ELIZABETH Titer 3 TNP ELIZABETH Pattern TNP ELIZABETH Pattern 2 TNP ELIZABETH Pattern 3 TNP 09/21/21 09/22/21 09/22/21 19:47 04:53 04:53 Sodium 139 Potassium 4.0 Chloride 94 L Carbon Dioxide 27 Anion Gap 22 H BUN 79 H Creatinine 2.67 H Estim Creat Clear Calc 21.8 Estimated GFR 24 POC Glucose 182 H Random Glucose 165 H Calcium 9.2 B-Natriuretic Peptide 1739 H ELIZABETH Screen ELIZABETH Titer ELIZABETH Titer 2 ELIZABETH Titer 3 ELIZABETH Pattern ELIZABETH Pattern 2 ELIZABETH Pattern 3 09/22/21 09/22/21 07:05 11:09 Sodium Potassium Chloride Carbon Dioxide Anion Gap BUN Creatinine Estim Creat Clear Calc Estimated GFR POC Glucose 159 H 172 H Random Glucose Calcium B-Natriuretic Peptide ELIZABETH Screen ELIZABETH Titer ELIZABETH Titer 2 ELIZABETH Titer 3 ELIZABETH Pattern ELIZABETH Pattern 2 ELIZABETH Pattern 3 Microbiology Microbiology Results: Microbiology 09/16/21 21:44 Blood - Venous Blood Culture - Final No growth after 5 days. 09/16/21 21:44 Blood - Venous Blood Culture - Final No growth after 5 days. Procedures Date of Service Date of Service: 09/22/21 Assessment & Plan Assessment and plan (1) CKD (chronic kidney disease) stage 4, GFR 15-29 ml/min: Status: Acute Assessment and Plan: Has advanced CKD due to DM/HTN Baseline Scr 2.5-3 mg/dl Renal functions close to baseline minimal proteinuria with normal renal US Continue diuresis/supportive care Lab AM. Shall closely follow up Time Spent With Patient Time: Total time spent is greater than 50% in coordination of care (as documented) at patient's floor/unit and/or counseling patient: Progress Note: Quality Stroke Does the patient have a stroke diagnosis?: No
--- NOTE | 2021-09-22 12:38 | MHC.CM.PN ---
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 patient per notes admitted with chf, ckd paf continues on amidorain , anticoagulants, on lasic gtt , cardiology and renal continue to follow DISCHARGE PLAN HOME WITH NEW REFERRAL TO [facility] , TO TRANSPORT PATIENT HOME AT DISCHARGE
--- NOTE | 2021-09-22 14:13 | HO.PM.IMPN ---
Subjective Subjective Date of Service: 09/22/21 Interval History: F/u on chf, cardiorenal syndrome Review of Systems no fever sob no cough Physical Exam Vital Signs: Vital Signs: Last Vital Signs Temp 98.1 F 09/22/21 11:11 Pulse 76 09/22/21 11:11 Resp 18 09/22/21 11:11 BP 116/57 L 09/22/21 11:11 Pulse Ox 96 09/22/21 11:11 Body Mass Index 28.6 Const: Other: General: AO X 3, no acute distress Resp: CTA bilateral CVS: S1,S2,RRR, no JVD, 2+ankle edema GI: +BS, NT, no distention Skin: No rash Neuro: motor grossly intact Psych: appropriate affect Objective Data Active Medications Acetaminophen (Acetaminophen 325 Mg Tablet) 650 mg PO Q6H PRN PRN Reason: Pain, Mild (Pain Scale 1-3) Last Admin: 09/20/21 21:07 Dose: 650 mg Documented by: VICKI Albuterol/Ipratropium (Albuterol/Iprat 2.5/0.5mg 3 Ml Ampul.Neb) 3 ml INHALE Q4H PRN PRN Reason: Shortness of Breath/Wheezing Last Admin: 09/18/21 21:23 Dose: 3 ml Documented by: DIEGO Amiodarone HCl (Amiodarone Hcl 200 Mg Tablet) 200 mg PO DAILY [facility] Last Admin: 09/22/21 07:40 Dose: 200 mg Documented by: HERBERT Apixaban (Apixaban 5 Mg Tablet) 5 mg PO BID [facility] Last Admin: 09/22/21 07:40 Dose: 5 mg Documented by: HERBERT Atorvastatin Calcium (Atorvastatin Calcium 40 Mg Tablet) 40 mg PO BEDTIME [facility] Last Admin: 09/21/21 20:49 Dose: 40 mg Documented by: VICKI Dextrose (Dextrose 50 % 25 Gm/50 Ml Vial) 25 gm IVPUSH Q15M PRN; Protocol PRN Reason: per Hypoglycemia Standing Ord. Glucose (Glucose Gel 15 Gm Gel..Gram.) 15 gm PO Q15M PRN; Protocol PRN Reason: per Hypoglycemia Standing Ord. Furosemide 200 mg/ Sodium (Chloride) 100 mls @ 5 mls/hr IVCONT .Q20H [facility] Last Admin: 09/22/21 10:30 Dose: 10 mg/hr, 5 mls/hr Documented by: HERBERT Insulin Human Lispro (Insulin Lispro 100 Unit/Ml 3 Ml Vial) 0 unit SUBCUT [facility]; Protocol Last Admin: 09/22/21 11:34 Dose: 2 unit Documented by: HERBERT Magnesium Hydroxide (Milk Of Magnesia 30 Ml Oral.Susp) 30 ml PO DAILY PRN PRN Reason: Constipation Melatonin (Melatonin 3 Mg Tablet) 6 mg PO BEDTIME PRN PRN Reason: Insomnia Last Admin: 09/18/21 21:05 Dose: 6 mg Documented by: PING Pharmacy Consult (Consult Rx Perform Med Rec) 1 each MISCELLANE ONCE PRN PRN Reason: Consult order Pharmacy Consult (Consult Rx Vancomycin Dosing) 1 each MISCELLANE DAILY PRN PRN Reason: Consult order Pharmacy Consult (Consult Rx Perform Med Rec) 1 each MISCELLANE ONCE PRN PRN Reason: Consult order Senna (Sennosides 8.6 Mg Tablet) 17.2 mg PO BEDTIME PRN PRN Reason: Constipation Last Admin: 09/20/21 21:07 Dose: 17.2 mg Documented by: VICKI Sodium Chloride (0.9 % Sodium Chloride Flush 3 Ml Syringe) 3 ml [facility] Last Admin: 09/22/21 07:41 Dose: 3 ml Documented by: HERBERT Labs CBC & Chem 7: 09/17/21 06:03 09/22/21 04:53 Labs: Laboratory Results - last 24 hr 09/19/21 09/21/21 09/21/21 11:48 15:05 16:15 Anion Gap 20 Estim Creat Clear Calc Estimated GFR POC Glucose 254 H Random Glucose Calcium B-Natriuretic Peptide ELIZABETH Screen NEGATIVE ELIZABETH Titer TNP ELIZABETH Titer 2 TNP ELIZABETH Titer 3 TNP ELIZABETH Pattern TNP ELIZABETH Pattern 2 TNP ELIZABETH Pattern 3 TNP 09/21/21 09/22/21 09/22/21 19:47 04:53 04:53 Anion Gap 22 H Estim Creat Clear Calc 21.8 Estimated GFR 24 POC Glucose 182 H Random Glucose 165 H Calcium 9.2 B-Natriuretic Peptide 1739 H ELIZABETH Screen ELIZABETH Titer ELIZABETH Titer 2 ELIZABETH Titer 3 ELIZABETH Pattern ELIZABETH Pattern 2 ELIZABETH Pattern 3 09/22/21 09/22/21 07:05 11:09 Anion Gap Estim Creat Clear Calc Estimated GFR POC Glucose 159 H 172 H Random Glucose Calcium B-Natriuretic Peptide ELIZABETH Screen ELIZABETH Titer ELIZABETH Titer 2 ELIZABETH Titer 3 ELIZABETH Pattern ELIZABETH Pattern 2 ELIZABETH Pattern 3 Microbiology Microbiology Results: Microbiology 09/16/21 21:44 Blood Culture - Final Blood - Venous No growth after 5 days. 09/16/21 21:44 Blood Culture - Final Blood - Venous No growth after 5 days. Assessment and Plan (1) Acute on chronic diastolic (congestive) heart failure: Status: Acute Assessment and Plan: 76-year-old male with a past medical history of hypertension, hyperlipidemia, diabetes, CAD, CHF, history of COVID-19 infection, obesity, obstructive sleep apnea, recent admission to the hospital for NSTEMI status post stress test; history of AFib on Eliquis, chronic kidney disease presented to the hospital with a chief complaint of shortness of breath.? Noted to have multifocal pneumonia on CT chest.? Admitted for further management. Dyspnea due to Heart failure--clnically improved, no hypoxia, continue treatment of underlying CHF Acute on chronic systolic heart failure-- -IV Lasix drip going, monitor I/O, renal function, so far negative 3400 -replace K as needed -BNP tomorrow Elevated troponins:? likely from CKD, no chest pain, repeat Hypokalemia--from diuretics, K supplement IV and PO, keep K around 4 Shoulder pain xray mild arthritis. CKD 3, stable there is NO MORTEZA, being worked up for pulmonary renal syndrome Diabetes:? Insulin sliding scale. Chronic AFib:? Rate controlled.? Continue home Eliquis, continue amio Code status:? Full code Quality Stroke Does the patient have a stroke diagnosis?: No VTE Prior VTE?: No VTE Risk Level:: Medical - moderate - high VTE Device Contraindication: Treatment Not Indicated VTE Drug Contraindication: N/A - Med Ordered
[2021-09-22 15:51] LABS: Complement C3 116 mg/dL (82-185)
[2021-09-22 16:16] LABS: Myeloperoxidase Antibody <1.0 AI; Proteinase 3 PR3 Antibodies <1.0 AI
[2021-09-22 16:24] LABS: Glucose, Whole Blood 201 mg/dL (60-115)
[2021-09-22 20:16] LABS: Glucose, Whole Blood 145 mg/dL (60-115)
[2021-09-22] MEDS: Atorvastatin Calcium 40 MG TABLET PO (21:09)
[2021-09-23 03:20] VITALS: BP 119/73; PULSE 84; RESP 16; TEMP 36.6; O2SAT 98
[2021-09-23] MEDS: Furosemide 200 MG in 0.9 % Sodium Chloride 80 ML IVCONT ×2 (03:42→17:40)
[2021-09-23 06:50] LABS: Anion Gap 18 (12-20); Calcium 8.9 mg/dL (8.4-10.2); Carbon Dioxide 31 mmol/L (22-29); Chloride 92 mmol/L (96-108); Creatinine Clr Calc Pharmacy 22.6; Estimated Glomerular Filt Rate 25; Glucose Random 173 mg/dL (60-115); Potassium 2.9 mmol/L (3.3-5.1); Sodium 138 mmol/L (135-145)
[2021-09-23 06:53] LABS: B Type Natriuretic Peptide 1537 pg/mL (<100); Blood Urea Nitrogen 81 mg/dL (9-16)
[2021-09-23 07:29] VITALS: BP 114/68; PULSE 80; RESP 18; TEMP 36.5; O2SAT 96
[2021-09-23 08:01] LABS: Glucose, Whole Blood 175 mg/dL (60-115)
[2021-09-23] MEDS: Apixaban 5 MG TABLET PO ×2 (08:18→21:13)
[2021-09-23] MEDS: Insulin Lispro 100 UNIT/ML 3 ML VIAL SUBCUT ×4 (08:18→21:13)
[2021-09-23] MEDS: Amiodarone HCL 200 MG TABLET PO (08:18)
[2021-09-23] MEDS: 0.9 % Sodium Chloride Flush 3 ML SYRINGE IVFLUSH (08:22)
[2021-09-23] MEDS: Potassium Chloride Packet 20 MEQ PACKET 40 MEQ PO (08:52)
--- NOTE | 2021-09-23 10:18 | PM.PNNEP ---
Subjective Subjective Date of Service: 09/23/21 Principal diagnosis: CKD , PNA, CHF Interval history: Events noted. All recent data reviewed Physical Exam Vital Signs: Vital Signs: Last Vital Signs Temp 97.7 F 09/23/21 07:29 Pulse 80 09/23/21 07:29 Resp 18 09/23/21 07:29 BP 114/68 09/23/21 07:29 Pulse Ox 96 09/23/21 07:29 Body Mass Index 28.6 Const: General: no acute distress Eyes: EOM: EOMs intact bilaterally Neck: Neck: Yes supple Resp: Auscultation: diminished lung sounds Cardio: Rate: regular rate GI: Palpation (GI): Soft to palpation Neuro: General: moves all extremities Objective Data Labs CBC & Chem 7: 09/17/21 06:03 09/23/21 06:05 Labs: Laboratory Results - last 24 hr 09/19/21 09/22/21 09/22/21 11:48 11:09 16:20 Sodium Potassium Chloride Carbon Dioxide Anion Gap BUN Creatinine Estim Creat Clear Calc Estimated GFR POC Glucose 172 H 201 H Random Glucose Calcium B-Natriuretic Peptide Proteinase 3 (PR3) Ab <1.0 Myeloperoxidase Ab <1.0 Complement C3 116 Complement C4 09/22/21 09/23/21 09/23/21 20:09 06:05 06:05 Sodium 138 Potassium 2.9 L D Chloride 92 L Carbon Dioxide 31 H Anion Gap 18 BUN 81 H* Creatinine 2.57 H Estim Creat Clear Calc 22.6 Estimated GFR 25 POC Glucose 145 H Random Glucose 173 H Calcium 8.9 B-Natriuretic Peptide 1537 H Proteinase 3 (PR3) Ab Myeloperoxidase Ab Complement C3 Complement C4 09/23/21 07:31 Sodium Potassium Chloride Carbon Dioxide Anion Gap BUN Creatinine Estim Creat Clear Calc Estimated GFR POC Glucose 175 H Random Glucose Calcium B-Natriuretic Peptide Proteinase 3 (PR3) Ab Myeloperoxidase Ab Complement C3 Complement C4 Microbiology Microbiology Results: Microbiology 09/16/21 21:44 Blood - Venous Blood Culture - Final No growth after 5 days. 09/16/21 21:44 Blood - Venous Blood Culture - Final No growth after 5 days. Procedures Date of Service Date of Service: 09/23/21 Assessment & Plan Assessment and plan (1) Acute kidney injury superimposed on CKD: Status: Acute Assessment and Plan: Has advanced CKD due to DM/HTN Baseline Scr 2.5-3 mg/dl Renal functions close to baseline minimal proteinuria with normal renal US Continue diuresis/supportive care Lab AM. Shall closely follow up Time Spent With Patient Time: Total time spent is greater than 50% in coordination of care (as documented) at patient's floor/unit and/or counseling patient: Progress Note: Quality Stroke Does the patient have a stroke diagnosis?: No
[2021-09-23 11:22] VITALS: BP 106/61; PULSE 85; RESP 18; TEMP 36; O2SAT 97
[2021-09-23 11:39] LABS: Glucose, Whole Blood 221 mg/dL (60-115)
--- NOTE | 2021-09-23 11:41 | PM.PNCARD ---
Subjective Subjective Date of Service: 09/23/21 Principal diagnosis: CKD , PNA, CHF Interval history: Patient still having intermittent shortness of breath. Still having mild leg edema. Diuresing slowly. Creatinine is stable. BNP is down trended slowly. Denies any chest pain. No palpitations. Potassium is noted to be significantly low Review of Systems Constitutional: Reports fatigue Cardiovascular: Denies chest pain, Reports leg edema, Denies lightheadedness, Denies Loss of Consciousness, Denies palpitations and Reports dyspnea Respiratory: Reports dyspnea Gastrointestinal: Reports no additional gastrointestinal complaints Genitourinary: Reports no additional male genitourinary complaints Reports system reviewed and no additional complaints, except as documented Psychiatric: Reports no additional psychiatric complaints Endocrine: Reports fatigue and Denies palpitations Hematologic/Lymphatic: Reports no additional hematologic/lymphatic complaints Allergic/Immunologic: Reports no additional allergic/immunologic complaints Physical Exam Vital Signs: Last Vital Signs Temp 96.8 F 09/23/21 11:22 Pulse 85 09/23/21 11:22 Resp 18 09/23/21 11:22 BP 106/61 09/23/21 11:22 Pulse Ox 97 09/23/21 11:22 Body Mass Index 28.6 Const General: cooperative, comfortable and tired appearing Nutritional Appearance: average body habitus Orientation/consciousness: patient oriented x3 Neck Neck: Yes trachea midline, Yes supple and Yes JVD Resp Effort & Inspection: normal respiratory effort Auscultation: crackles and diminished lung sounds Cardio Jugular venous distension: JVD Palpation: normal PMI Rate: regular rate Rhythm: regular rhythm Heart sounds: S1 normal heart sound present, S2 normal heart sound present, no click, no gallops and no murmurs GI Auscultation: normal bowel sounds Skin General skin exam: no rashes or lesions noted Neuro General: patient oriented x3 and no focal motor deficits Extrem General: No clubbing, No cyanosis and Yes edema Results Labs and Meds Result diagrams: 09/17/21 06:03 09/23/21 06:05 Lab results: Laboratory Results - last 24 hr 09/19/21 09/22/21 09/22/21 11:48 16:20 20:09 Sodium Potassium Chloride Carbon Dioxide Anion Gap BUN Creatinine Estim Creat Clear Calc Estimated GFR POC Glucose 201 H 145 H Random Glucose Calcium B-Natriuretic Peptide Proteinase 3 (PR3) Ab <1.0 Myeloperoxidase Ab <1.0 Complement C3 116 Complement C4 09/23/21 09/23/21 09/23/21 06:05 06:05 07:31 Sodium 138 Potassium 2.9 L D Chloride 92 L Carbon Dioxide 31 H Anion Gap 18 BUN 81 H* Creatinine 2.57 H Estim Creat Clear Calc 22.6 Estimated GFR 25 POC Glucose 175 H Random Glucose 173 H Calcium 8.9 B-Natriuretic Peptide 1537 H Proteinase 3 (PR3) Ab Myeloperoxidase Ab Complement C3 Complement C4 09/23/21 11:21 Sodium Potassium Chloride Carbon Dioxide Anion Gap BUN Creatinine Estim Creat Clear Calc Estimated GFR POC Glucose 221 H Random Glucose Calcium B-Natriuretic Peptide Proteinase 3 (PR3) Ab Myeloperoxidase Ab Complement C3 Complement C4 Progress Note: A&P Assessment and plan (1) Acute on chronic diastolic (congestive) heart failure: Status: Acute Assessment and Plan: Slowly responding diastolic heart failure. Compounded by weakness as well as chronic kidney disease with slowly increasing creatinine. Amyloidosis needs to be ruled out. Patient's BNP slowly down trending. Continue gentle IV diuresis with Lasix drip. Strict intake and output chart needs to be pursued. Continue to follow renal function. Replace electrolytes aggressively. Continue to maintain rhythm with amiodarone and maintain sinus rhythm. Continue full oral anticoagulation. Out of bed to chair and ambulate if possible. May benefit as outpatient for CardioMEMS device given his multiple comorbidities and difficult fluid status and hospitalizations to avoid future hospitalizations. Also consider therapy with Jardiance 10 mg Will follow the patient Fall Risk Details Current Medications: Current Medications Acetaminophen (Acetaminophen 325 Mg Tablet) 650 mg PO Q6H PRN PRN Reason: Pain, Mild (Pain Scale 1-3) Last Admin: 09/20/21 21:07 Dose: 650 mg Documented by: Albuterol/Ipratropium (Albuterol/Iprat 2.5/0.5mg 3 Ml Ampul.Neb) 3 ml INHALE Q4H PRN PRN Reason: Shortness of Breath/Wheezing Last Admin: 09/18/21 21:23 Dose: 3 ml Documented by: Amiodarone HCl (Amiodarone Hcl 200 Mg Tablet) 200 mg PO DAILY [facility] Last Admin: 09/23/21 08:18 Dose: 200 mg Documented by: Apixaban (Apixaban 5 Mg Tablet) 5 mg PO BID [facility] Last Admin: 09/23/21 08:18 Dose: 5 mg Documented by: Atorvastatin Calcium (Atorvastatin Calcium 40 Mg Tablet) 40 mg PO BEDTIME [facility] Last Admin: 09/22/21 21:09 Dose: 40 mg Documented by: Dextrose (Dextrose 50 % 25 Gm/50 Ml Vial) 25 gm IVPUSH Q15M PRN; Protocol PRN Reason: per Hypoglycemia Standing Ord. Glucose (Glucose Gel 15 Gm Gel..Gram.) 15 gm PO Q15M PRN; Protocol PRN Reason: per Hypoglycemia Standing Ord. Furosemide 200 mg/ Sodium (Chloride) 100 mls @ 5 mls/hr IVCONT .Q20H [facility] Last Admin: 09/23/21 03:42 Dose: 10 mg/hr, 5 mls/hr Documented by: Insulin Human Lispro (Insulin Lispro 100 Unit/Ml 3 Ml Vial) 0 unit SUBCUT QIDACHS [facility]; Protocol Last Admin: 09/23/21 08:18 Dose: 2 unit Documented by: Magnesium Hydroxide (Milk Of Magnesia 30 Ml Oral.Susp) 30 ml PO DAILY PRN PRN Reason: Constipation Melatonin (Melatonin 3 Mg Tablet) 6 mg PO BEDTIME PRN PRN Reason: Insomnia Last Admin: 09/18/21 21:05 Dose: 6 mg Documented by: Pharmacy Consult (Consult Rx Perform Med Rec) 1 each MISCELLANE ONCE PRN PRN Reason: Consult order Pharmacy Consult (Consult Rx Vancomycin Dosing) 1 each MISCELLANE DAILY PRN PRN Reason: Consult order Pharmacy Consult (Consult Rx Perform Med Rec) 1 each MISCELLANE ONCE PRN PRN Reason: Consult order Senna (Sennosides 8.6 Mg Tablet) 17.2 mg PO BEDTIME PRN PRN Reason: Constipation Last Admin: 09/20/21 21:07 Dose: 17.2 mg Documented by: Sodium Chloride (0.9 % Sodium Chloride Flush 3 Ml Syringe) [facility] Last Admin: 09/23/21 08:22 Dose: 3 ml Documented by: Time Spent With Patient Time: Total time spent is greater than 50% in coordination of care (as documented) at patient's floor/unit and/or counseling patient: Time with patient: 15 - 24 minutes Progress Note: Quality Stroke Does the patient have a stroke diagnosis?: No Procedures Date of Service Date of Service: 09/23/21
[2021-09-23 16:00] VITALS: BP 108/64; PULSE 80; RESP 18; TEMP 37; O2SAT 98
[2021-09-23 17:03] LABS: Glucose, Whole Blood 281 mg/dL (60-115)
--- NOTE | 2021-09-23 17:37 | P.PNIM_ITS ---
Subjective Subjective Date of Service: 09/23/21 Interval History: chf Review of Systems Shortness of breath seems improving, denies any chest pain or abdominal pain or fever chills. Physical Exam Vital Signs: Vital Signs: Last Vital Signs Temp 98.6 F 09/23/21 16:00 Pulse 80 09/23/21 16:00 Resp 18 09/23/21 16:00 BP 108/64 09/23/21 16:00 Pulse Ox 98 09/23/21 16:00 Body Mass Index 28.6 General: AO X 3, no acute distress Resp:? CTA bilateral CVS: S1,S2,RRR, no JVD, 2+ankle edema GI: +BS, NT, no distention Skin: No rash, has mild edema Neuro:? motor grossly intact Psych: appropriate affect Objective Data Active Medications Acetaminophen (Acetaminophen 325 Mg Tablet) 650 mg PO Q6H PRN PRN Reason: Pain, Mild (Pain Scale 1-3) Last Admin: 09/20/21 21:07 Dose: 650 mg Documented by: VICKI Albuterol/Ipratropium (Albuterol/Iprat 2.5/0.5mg 3 Ml Ampul.Neb) 3 ml INHALE Q4H PRN PRN Reason: Shortness of Breath/Wheezing Last Admin: 09/18/21 21:23 Dose: 3 ml Documented by: DIEGO Amiodarone HCl (Amiodarone Hcl 200 Mg Tablet) 200 mg PO DAILY [facility] Last Admin: 09/23/21 08:18 Dose: 200 mg Documented by: HERBERT Apixaban (Apixaban 5 Mg Tablet) 5 mg PO BID [facility] Last Admin: 09/23/21 08:18 Dose: 5 mg Documented by: HERBERT Atorvastatin Calcium (Atorvastatin Calcium 40 Mg Tablet) 40 mg PO BEDTIME [facility] Last Admin: 09/22/21 21:09 Dose: 40 mg Documented by: TUMASY Dextrose (Dextrose 50 % 25 Gm/50 Ml Vial) 25 gm IVPUSH Q15M PRN; Protocol PRN Reason: per Hypoglycemia Standing Ord. Glucose (Glucose Gel 15 Gm Gel..Gram.) 15 gm PO Q15M PRN; Protocol PRN Reason: per Hypoglycemia Standing Ord. Furosemide 200 mg/ Sodium (Chloride) 100 mls @ 5 mls/hr IVCONT .Q20H [facility] Last Admin: 09/23/21 03:42 Dose: 10 mg/hr, 5 mls/hr Documented by: LAURYN Insulin Human Lispro (Insulin Lispro 100 Unit/Ml 3 Ml Vial) 0 unit SUBCUT QIDACHS [facility]; Protocol Last Admin: 09/23/21 11:53 Dose: 4 unit Documented by: HERBERT Magnesium Hydroxide (Milk Of Magnesia 30 Ml Oral.Susp) 30 ml PO DAILY PRN PRN Reason: Constipation Melatonin (Melatonin 3 Mg Tablet) 6 mg PO BEDTIME PRN PRN Reason: Insomnia Last Admin: 09/18/21 21:05 Dose: 6 mg Documented by: PING Pharmacy Consult (Consult Rx Perform Med Rec) 1 each MISCELLANE ONCE PRN PRN Reason: Consult order Pharmacy Consult (Consult Rx Vancomycin Dosing) 1 each MISCELLANE DAILY PRN PRN Reason: Consult order Pharmacy Consult (Consult Rx Perform Med Rec) 1 each MISCELLANE ONCE PRN PRN Reason: Consult order Senna (Sennosides 8.6 Mg Tablet) 17.2 mg PO BEDTIME PRN PRN Reason: Constipation Last Admin: 09/20/21 21:07 Dose: 17.2 mg Documented by: VICKI Sodium Chloride (0.9 % Sodium Chloride Flush 3 Ml Syringe) [facility] Last Admin: 09/23/21 15:35 Dose: Not Given Documented by: GITA Non-Admin Reason: IV Running Labs CBC & Chem 7: 09/17/21 06:03 09/23/21 06:05 Labs: Laboratory Results - last 24 hr 09/22/21 09/23/21 09/23/21 20:09 06:05 06:05 Anion Gap 18 Estim Creat Clear Calc 22.6 Estimated GFR 25 POC Glucose 145 H Random Glucose 173 H Calcium 8.9 B-Natriuretic Peptide 1537 H 09/23/21 09/23/21 09/23/21 07:31 11:21 16:07 Anion Gap Estim Creat Clear Calc Estimated GFR POC Glucose 175 H 221 H 281 H Random Glucose Calcium B-Natriuretic Peptide Assessment and Plan (1) Hypokalemia: Status: Acute (2) CKD (chronic kidney disease) stage 4, GFR 15-29 ml/min: Status: Acute (3) Heart failure: Status: Acute Assessment and Plan: 76-year-old male with a past medical history of hypertension, hyperlipidemia, diabetes, CAD, CHF, history of COVID-19 infection, obesity, obstructive sleep apnea, recent admission to the hospital for NSTEMI status post stress test; history of AFib on Eliquis, chronic kidney disease presented to the hospital with a chief complaint of shortness of breath.? Noted to have multifocal pneumonia on CT chest.? Admitted for further management. 1.Dyspnea due to Heart failure--clnically improving, no hypoxia, continue treatment of underlying CHF Acute on chronic systolic heart failure-- -IV Lasix drip going, monitor I/O, renal function, so far negative 3400 -replace K as needed, repeat magnesium and potassium levels -BNP, bmp tomorrow Cardiology following 2.Elevated troponins:? noted to be thopught likely from CKD, no chest pain. 3.Hypokalemia--from diuretics, K supplement IV and PO,? keep K around 4 Shoulder pain xray mild arthritis. 4.CKD 3, stable there is NO? MORTEZA, being worked up for pulmonary renal syndrome 5.Diabetes:? Insulin sliding scale. 6.Chronic AFib:? Rate controlled.? Continue home Eliquis, continue amio Code status:? Full code Quality Stroke Does the patient have a stroke diagnosis?: No VTE Prior VTE?: No VTE Risk Level:: Medical - moderate - high VTE Device Contraindication: Treatment Not Indicated VTE Drug Contraindication: N/A - Med Ordered
[2021-09-23 18:47] LABS: Magnesium 2.4 mg/dL (1.6-2.6)
[2021-09-23 18:56] LABS: Potassium 3.6 mmol/L (3.3-5.1)
[2021-09-23 19:19] VITALS: BP 105/62; PULSE 99; RESP 18; TEMP 36.3; O2SAT 98
[2021-09-23 20:17] LABS: Glucose, Whole Blood 201 mg/dL (60-115)
[2021-09-23] MEDS: Atorvastatin Calcium 40 MG TABLET PO (21:13)
[2021-09-23 21:22] VITALS: PULSE 81; O2SAT 97
[2021-09-23] MEDS: Albuterol/Iprat 2.5/0.5MG 3 ML AMPUL.NEB INHALE (21:22)
[2021-09-24] VITALS (8 sets, daily range): BP systolic 95–109; BP diastolic 55–64; PULSE 72–88; RESP 16–18; TEMP 36–36.9; O2SAT 94–99
[2021-09-24 05:56] LABS: Anion Gap 19 (12-20); Blood Urea Nitrogen 83 mg/dL (9-16); Calcium 8.6 mg/dL (8.4-10.2); Carbon Dioxide 29 mmol/L (22-29); Chloride 91 mmol/L (96-108); Creatinine Clr Calc Pharmacy 20.7; Estimated Glomerular Filt Rate 22; Glucose Random 192 mg/dL (60-115); Potassium 3.1 mmol/L (3.3-5.1); Sodium 136 mmol/L (135-145)
[2021-09-24 07:47] LABS: Glucose, Whole Blood 198 mg/dL (60-115)
[2021-09-24] MEDS: Insulin Lispro 100 UNIT/ML 3 ML VIAL SUBCUT ×4 (08:09→20:41)
[2021-09-24] MEDS: Apixaban 5 MG TABLET PO ×2 (08:10→20:42)
[2021-09-24] MEDS: Amiodarone HCL 200 MG TABLET PO (08:10)
[2021-09-24] MEDS: 0.9 % Sodium Chloride Flush 3 ML SYRINGE IVFLUSH ×2 (08:10→15:22)
[2021-09-24] MEDS: Potassium Chloride Packet 20 MEQ PACKET 40 MEQ PO (08:10)
--- NOTE | 2021-09-24 10:29 | PM.PNNEP ---
Subjective Subjective Date of Service: 09/24/21 Principal diagnosis: CKD , PNA, CHF Interval history: Events noted. All recent data reviewed Physical Exam Vital Signs: Vital Signs: Last Vital Signs Temp 96.8 F 09/24/21 07:26 Pulse 77 09/24/21 07:26 Resp 18 09/24/21 07:26 BP 104/58 L 09/24/21 07:26 Pulse Ox 96 09/24/21 07:26 Body Mass Index 28.6 Const: General: no acute distress Eyes: EOM: EOMs intact bilaterally Neck: Neck: Yes supple Resp: Auscultation: diminished lung sounds Cardio: Jugular venous distension: no JVD GI: Palpation (GI): Soft to palpation Neuro: General: moves all extremities Objective Data Labs CBC & Chem 7: 09/17/21 06:03 09/24/21 05:00 Labs: Laboratory Results - last 24 hr 09/23/21 09/23/21 09/23/21 11:21 16:07 18:09 Sodium Potassium 3.6 D Chloride Carbon Dioxide Anion Gap BUN Creatinine Estim Creat Clear Calc Estimated GFR POC Glucose 221 H 281 H Random Glucose Calcium Magnesium 2.4 09/23/21 09/24/21 09/24/21 20:03 05:00 07:26 Sodium 136 Potassium 3.1 L Chloride 91 L Carbon Dioxide 29 Anion Gap 19 BUN 83 H* Creatinine 2.81 H Estim Creat Clear Calc 20.7 Estimated GFR 22 POC Glucose 201 H 198 H Random Glucose 192 H Calcium 8.6 Magnesium Microbiology Microbiology Results: Microbiology 09/16/21 21:44 Blood - Venous Blood Culture - Final No growth after 5 days. 09/16/21 21:44 Blood - Venous Blood Culture - Final No growth after 5 days. Procedures Date of Service Date of Service: 09/24/21 Assessment & Plan Assessment and plan (1) Acute kidney injury superimposed on CKD: Status: Acute Assessment and Plan: Has advanced CKD due to DM/HTN Baseline Scr 2.5-3 mg/dl Renal functions close to baseline minimal proteinuria with normal renal US Could switch to PO torsemide Continue rest of current supportive care Shall arrange close office follow up when D/Timothy Time Spent With Patient Time: Total time spent is greater than 50% in coordination of care (as documented) at patient's floor/unit and/or counseling patient: Progress Note: Quality Stroke Does the patient have a stroke diagnosis?: No
[2021-09-24] MEDS: Albuterol/Iprat 2.5/0.5MG 3 ML AMPUL.NEB INHALE ×2 (11:24→20:31)
[2021-09-24 11:48] LABS: Glucose, Whole Blood 243 mg/dL (60-115)
[2021-09-24] MEDS: Furosemide 200 MG in 0.9 % Sodium Chloride 80 ML IVCONT (12:11)
[2021-09-24 13:25] LABS: B Type Natriuretic Peptide 1130 pg/mL (<100)
--- NOTE | 2021-09-24 13:36 | HO.PM.IMPN ---
Subjective Subjective Date of Service: 09/24/21 Interval History: chf Review of Systems sob overnight, no chest pain or cough. Physical Exam Vital Signs: Vital Signs: Last Vital Signs Temp 96.8 F 09/24/21 11:13 Pulse 72 09/24/21 11:13 Resp 18 09/24/21 11:13 BP 105/64 09/24/21 11:13 Pulse Ox 99 09/24/21 11:13 Body Mass Index 28.6 Physical exam: General: AO X 3, no acute distress Resp:? CTA bilateral CVS: S1,S2,RRR, GI: +BS, NT, no distention Skin: No rash, 2+ankle edema Neuro:? motor grossly intact Psych: appropriate affect Objective Data Active Medications Acetaminophen (Acetaminophen 325 Mg Tablet) 650 mg PO Q6H PRN PRN Reason: Pain, Mild (Pain Scale 1-3) Last Admin: 09/20/21 21:07 Dose: 650 mg Documented by: VICKI Albuterol/Ipratropium (Albuterol/Iprat 2.5/0.5mg 3 Ml Ampul.Neb) 3 ml INHALE Q4H PRN PRN Reason: Shortness of Breath/Wheezing Last Admin: 09/24/21 11:24 Dose: 3 ml Documented by: COLLEEN Amiodarone HCl (Amiodarone Hcl 200 Mg Tablet) 200 mg PO DAILY [facility] Last Admin: 09/24/21 08:10 Dose: 200 mg Documented by: HERBERT Apixaban (Apixaban 5 Mg Tablet) 5 mg PO BID [facility] Last Admin: 09/24/21 08:10 Dose: 5 mg Documented by: HERBERT Atorvastatin Calcium (Atorvastatin Calcium 40 Mg Tablet) 40 mg PO BEDTIME [facility] Last Admin: 09/23/21 21:13 Dose: 40 mg Documented by: ABDULAZIZ Dextrose (Dextrose 50 % 25 Gm/50 Ml Vial) 25 gm IVPUSH Q15M PRN; Protocol PRN Reason: per Hypoglycemia Standing Ord. Glucose (Glucose Gel 15 Gm Gel..Gram.) 15 gm PO Q15M PRN; Protocol PRN Reason: per Hypoglycemia Standing Ord. Furosemide 200 mg/ Sodium (Chloride) 100 mls @ 5 mls/hr IVCONT .Q20H [facility] Last Admin: 09/24/21 12:11 Dose: 10 mg/hr, 5 mls/hr Documented by: HERBERT Insulin Human Lispro (Insulin Lispro 100 Unit/Ml 3 Ml Vial) 0 unit SUBCUT [facility]; Protocol Last Admin: 09/24/21 11:33 Dose: 4 unit Documented by: HERBERT Magnesium Hydroxide (Milk Of Magnesia 30 Ml Oral.Susp) 30 ml PO DAILY PRN PRN Reason: Constipation Melatonin (Melatonin 3 Mg Tablet) 6 mg PO BEDTIME PRN PRN Reason: Insomnia Last Admin: 09/18/21 21:05 Dose: 6 mg Documented by: PING Pharmacy Consult (Consult Rx Perform Med Rec) 1 each MISCELLANE ONCE PRN PRN Reason: Consult order Pharmacy Consult (Consult Rx Perform Med Rec) 1 each MISCELLANE ONCE PRN PRN Reason: Consult order Senna (Sennosides 8.6 Mg Tablet) 17.2 mg PO BEDTIME PRN PRN Reason: Constipation Last Admin: 09/20/21 21:07 Dose: 17.2 mg Documented by: VICKI Sodium Chloride (0.9 % Sodium Chloride Flush 3 Ml Syringe) 3 ml [facility] [place] Last Admin: 09/24/21 08:10 Dose: 3 ml Documented by: HERBERT Labs CBC & Chem 7: 09/17/21 06:03 09/25/21 05:19 Labs: Laboratory Results - last 24 hr 09/23/21 09/23/21 09/23/21 16:07 18:09 20:03 Anion Gap Estim Creat Clear Calc Estimated GFR POC Glucose 281 H 201 H Random Glucose Calcium Magnesium 2.4 B-Natriuretic Peptide 09/24/21 09/24/21 09/24/21 05:00 07:26 11:08 Anion Gap 19 Estim Creat Clear Calc 20.7 Estimated GFR 22 POC Glucose 198 H 243 H Random Glucose 192 H Calcium 8.6 Magnesium B-Natriuretic Peptide 09/24/21 12:48 Anion Gap Estim Creat Clear Calc Estimated GFR POC Glucose Random Glucose Calcium Magnesium B-Natriuretic Peptide 1130 H Assessment and Plan (1) Dyspnea: Status: Acute Assessment and Plan: 76-year-old male with a past medical history of hypertension, hyperlipidemia, diabetes, CAD, CHF, history of COVID-19 infection, obesity, obstructive sleep apnea, recent admission to the hospital for NSTEMI status post stress test; history of AFib on Eliquis, chronic kidney disease presented to the hospital with a chief complaint of shortness of breath.? Noted to have multifocal pneumonia on CT chest.? Admitted for further management. 1.Dyspnea due to Heart failure--clnically improving, no hypoxia, continue treatment of underlying CHF Acute on chronic systolic heart failure-- -IV Lasix drip going, monitor I/O, renal function, so far negative 3400 -replace K as needed, repeat magnesium and potassium levels -BNP, bmp tomorrow Cardiology following 2.Elevated troponins:? noted to be thopught likely from CKD, no chest pain. 3.Hypokalemia--from diuretics, K supplement IV and PO,? keep K around 4 Shoulder pain xray mild arthritis. 4.CKD 3, stable there is NO? MORTEZA, being worked up for pulmonary renal syndrome 5.Diabetes:? Insulin sliding scale. 6.Chronic AFib:? Rate controlled.? Continue home Eliquis, continue amio Code status:? Full code Quality Stroke Does the patient have a stroke diagnosis?: No VTE Prior VTE?: No VTE Risk Level:: Medical - moderate - high VTE Device Contraindication: Treatment Not Indicated VTE Drug Contraindication: N/A - Med Ordered
--- NOTE | 2021-09-24 13:44 | PM.PNCARD ---
Subjective Subjective Date of Service: 09/24/21 Principal diagnosis: CKD , PNA, CHF Interval history: Patient continues to be short of breath with minimal exertion. Also says he was short of breath last night. Has leg edema still present. His pulmonary artery diastolic pressure measured today by [facility] is 18 mm Hg. Diuretic response is tepid Review of Systems Constitutional: Reports fatigue Cardiovascular: Denies chest pain, Reports leg edema, Denies lightheadedness, Denies Loss of Consciousness, Denies palpitations, Reports dyspnea on exertion and Reports orthopnea Respiratory: Reports no additional respiratory complaints and Reports dyspnea on exertion Gastrointestinal: Reports no additional gastrointestinal complaints Musculoskeletal: Reports no additional musculoskeletal complaints Reports system reviewed and no additional complaints, except as documented Psychiatric: Reports no additional psychiatric complaints Endocrine: Reports no additional endocrine complaints, Reports fatigue and Denies palpitations Hematologic/Lymphatic: Reports no additional hematologic/lymphatic complaints Allergic/Immunologic: Reports no additional allergic/immunologic complaints Physical Exam Vital Signs: Last Vital Signs Temp 96.8 F 09/24/21 11:13 Pulse 72 09/24/21 11:13 Resp 18 09/24/21 11:13 BP 105/64 09/24/21 11:13 Pulse Ox 99 09/24/21 11:13 Body Mass Index 28.6 Const General: cooperative, in distress mild and respiratory and tired appearing Nutritional Appearance: overweight Orientation/consciousness: patient oriented x3 Neck Neck: Yes trachea midline, Yes supple and Yes JVD Resp Effort & Inspection: normal respiratory effort Auscultation: crackles and diminished lung sounds Cardio Jugular venous distension: JVD Palpation: normal PMI Rate: regular rate Rhythm: regular rhythm Heart sounds: S1 normal heart sound present, S2 normal heart sound present, no click, no gallops and no murmurs GI Auscultation: normal bowel sounds Neuro General: patient oriented x3 Extrem General: No clubbing, No cyanosis and Yes edema Results Labs and Meds Result diagrams: 09/17/21 06:03 09/24/21 05:00 Lab results: Laboratory Results - last 24 hr 09/23/21 09/23/21 09/23/21 16:07 18:09 20:03 Sodium Potassium 3.6 D Chloride Carbon Dioxide Anion Gap BUN Creatinine Estim Creat Clear Calc Estimated GFR POC Glucose 281 H 201 H Random Glucose Calcium Magnesium 2.4 B-Natriuretic Peptide 09/24/21 09/24/21 09/24/21 05:00 07:26 11:08 Sodium 136 Potassium 3.1 L Chloride 91 L Carbon Dioxide 29 Anion Gap 19 BUN 83 H* Creatinine 2.81 H Estim Creat Clear Calc 20.7 Estimated GFR 22 POC Glucose 198 H 243 H Random Glucose 192 H Calcium 8.6 Magnesium B-Natriuretic Peptide 09/24/21 12:48 Sodium Potassium Chloride Carbon Dioxide Anion Gap BUN Creatinine Estim Creat Clear Calc Estimated GFR POC Glucose Random Glucose Calcium Magnesium B-Natriuretic Peptide 1130 H Progress Note: A&P Assessment and plan (1) Acute on chronic diastolic (congestive) heart failure: Status: Acute Assessment and Plan: Persistent symptoms and signs of elevated filling pressures by [facility] monitoring. Will continue monitor on a daily basis while patient is inpatient. Continue IV Lasix therapy. Will add low-dose metolazone to his regimen for enhancing his diuretic. Strict intake and output chart. Continue to monitor electrolytes and BMP and replace as needed. Will continue to follow with the patient. Consider physical therapy consultation. (2) PAF (paroxysmal atrial fibrillation): Status: Acute Assessment and Plan: Paroxysmal atrial fibrillation has remained suppressed with amiodarone. Continue the same. Continue full oral anticoagulation. Will follow the patient Fall Risk Details Current Medications: Current Medications Acetaminophen (Acetaminophen 325 Mg Tablet) 650 mg PO Q6H PRN PRN Reason: Pain, Mild (Pain Scale 1-3) Last Admin: 09/20/21 21:07 Dose: 650 mg Documented by: Albuterol/Ipratropium (Albuterol/Iprat 2.5/0.5mg 3 Ml Ampul.Neb) 3 ml INHALE Q4H PRN PRN Reason: Shortness of Breath/Wheezing Last Admin: 09/24/21 11:24 Dose: 3 ml Documented by: Amiodarone HCl (Amiodarone Hcl 200 Mg Tablet) 200 mg PO DAILY [facility] Last Admin: 09/24/21 08:10 Dose: 200 mg Documented by: Apixaban (Apixaban 5 Mg Tablet) 5 mg PO BID [facility] Last Admin: 09/24/21 08:10 Dose: 5 mg Documented by: Atorvastatin Calcium (Atorvastatin Calcium 40 Mg Tablet) 40 mg PO BEDTIME [facility] Last Admin: 09/23/21 21:13 Dose: 40 mg Documented by: Dextrose (Dextrose 50 % 25 Gm/50 Ml Vial) 25 gm IVPUSH Q15M PRN; Protocol PRN Reason: per Hypoglycemia Standing Ord. Glucose (Glucose Gel 15 Gm Gel..Gram.) 15 gm PO Q15M PRN; Protocol PRN Reason: per Hypoglycemia Standing Ord. Furosemide 200 mg/ Sodium (Chloride) 100 mls @ 5 mls/hr IVCONT .Q20H [facility] Last Admin: 09/24/21 12:11 Dose: 10 mg/hr, 5 mls/hr Documented by: Insulin Human Lispro (Insulin Lispro 100 Unit/Ml 3 Ml Vial) 0 unit SUBCUT QIDACHS [facility]; Protocol Last Admin: 09/24/21 11:33 Dose: 4 unit Documented by: Magnesium Hydroxide (Milk Of Magnesia 30 Ml Oral.Susp) 30 ml PO DAILY PRN PRN Reason: Constipation Melatonin (Melatonin 3 Mg Tablet) 6 mg PO BEDTIME PRN PRN Reason: Insomnia Last Admin: 09/18/21 21:05 Dose: 6 mg Documented by: Pharmacy Consult (Consult Rx Perform Med Rec) 1 each MISCELLANE ONCE PRN PRN Reason: Consult order Pharmacy Consult (Consult Rx Perform Med Rec) 1 each MISCELLANE ONCE PRN PRN Reason: Consult order Senna (Sennosides 8.6 Mg Tablet) 17.2 mg PO BEDTIME PRN PRN Reason: Constipation Last Admin: 09/20/21 21:07 Dose: 17.2 mg Documented by: Sodium Chloride (0.9 % Sodium Chloride Flush 3 [facility]l [facility]) [facility] Last Admin: 09/24/21 08:10 Dose: 3 ml Documented by: Time Spent With Patient Time: Total time spent is greater than 50% in coordination of care (as documented) at patient's floor/unit and/or counseling patient: Time with patient: 25 - 35 minutes Progress Note: Quality Stroke Does the patient have a stroke diagnosis?: No Procedures Date of Service Date of Service: 09/24/21
[2021-09-24] MEDS: metOLazone 2.5 MG TABLET PO (13:48)
--- NOTE | 2021-09-24 16:33 | MHC.CM.PN ---
Male 76 DP Home with new HVNA.
[2021-09-24 16:42] LABS: Glucose, Whole Blood 219 mg/dL (60-115)
[2021-09-24 20:11] LABS: Glucose, Whole Blood 240 mg/dL (60-115)
[2021-09-24] MEDS: Atorvastatin Calcium 40 MG TABLET PO (20:42)
[2021-09-25] VITALS (7 sets, daily range): BP systolic 97–110; BP diastolic 60–65; PULSE 74–87; RESP 16–18; TEMP 36–36.9; O2SAT 94–100
[2021-09-25 06:02] LABS: B Type Natriuretic Peptide 1477 pg/mL (<100)
[2021-09-25 06:03] LABS: Anion Gap 18 (12-20); Blood Urea Nitrogen 81 mg/dL (9-16); Calcium 8.7 mg/dL (8.4-10.2); Carbon Dioxide 31 mmol/L (22-29); Chloride 90 mmol/L (96-108); Creatinine Clr Calc Pharmacy 20.4; Estimated Glomerular Filt Rate 22; Glucose Random 215 mg/dL (60-115); Potassium 2.8 mmol/L (3.3-5.1); Sodium 136 mmol/L (135-145)
[2021-09-25 07:44] LABS: Glucose, Whole Blood 208 mg/dL (60-115)
[2021-09-25] MEDS: Apixaban 5 MG TABLET PO ×2 (09:01→21:05)
[2021-09-25] MEDS: Furosemide 200 MG in 0.9 % Sodium Chloride 80 ML IVCONT (09:01)
[2021-09-25] MEDS: Insulin Lispro 100 UNIT/ML 3 ML VIAL SUBCUT ×4 (09:01→21:04)
[2021-09-25] MEDS: Amiodarone HCL 200 MG TABLET PO (09:01)
[2021-09-25] MEDS: 0.9 % Sodium Chloride Flush 3 ML SYRINGE IVFLUSH (09:05)
--- NOTE | 2021-09-25 09:58 | PM.PNCARD ---
Subjective Subjective Date of Service: 09/25/21 <GIOVANA Macias - Last Filed: 09/25/21 10:09> 09/25/21 <Eric Richardson MD - Last Filed: 09/25/21 10:13> Principal diagnosis: CKD, CHF <GIOVANA Macias - Last Filed: 09/25/21 10:09> Interval history: Cardiology follow up for CHF. Seen at 0845. Today he reports that he is still feeling sob with activity and when laying down. He did wake in the night with cough, sob. He has not needed supplemental O2. sat 94% on RA. No chest pains, palpitation, dizziness. Has mild ankle edema. Assisted him with cardiomems reading today: PAD 14. Hospital certified bead cutter used. <GIOVANA Macias - Last Filed: 09/25/21 10:09> Review of Systems Review of Systems as above <GIOVANA Macias - Last Filed: 09/25/21 10:09> Yes all other systems are reviewed and are negative <GIOVANA Macias - Last Filed: 09/25/21 10:09> Physical Exam Vital Signs: Last Vital Signs Temp 98.2 F 09/25/21 07:20 Pulse 81 09/25/21 07:20 Resp 18 09/25/21 07:20 BP 104/60 09/25/21 07:20 Pulse Ox 94 09/25/21 07:20 Body Mass Index 28.6 <GIOVANA Macias - Last Filed: 09/25/21 10:09> Const General: cooperative, no acute distress, alert and awake <GIOVANA Macias - Last Filed: 09/25/21 10:09> Orientation/consciousness: patient oriented x3 <GIOVANA Macias - Last Filed: 09/25/21 10:09> HENMT Head: Yes normal to inspection <GIOVANA Macias - Last Filed: 09/25/21 10:09> Neck Neck: Yes normal visual inspection <GIOVANA Macias - Last Filed: 09/25/21 10:09> Resp Effort & Inspection: normal respiratory effort, able to speak in complete sentences and not labored <Dona DiezMAURISIO-C - Last Filed: 09/25/21 10:09> Auscultation: clear to auscultation bilaterally, rales (Left lower lobe - Dim right lower lobe), no rhonchi and no wheezes <Dona DiezMAURISIO-C - Last Filed: 09/25/21 10:09> Cardio Jugular venous distension: JVD present <Dona DiezMAURISIO-C - Last Filed: 09/25/21 10:09> Rate: regular rate <Dona DiezMAURISIO-C - Last Filed: 09/25/21 10:09> Rhythm: regular rhythm <Dona DiezMAURISIO-C - Last Filed: 09/25/21 10:09> Heart sounds: S1 normal heart sound present and S2 normal heart sound present <Dona DiezMAURISIO-C - Last Filed: 09/25/21 10:09> GI Inspection: Yes normal to inspection <Dona DiezMAURISIO-C - Last Filed: 09/25/21 10:09> Neuro General: patient oriented x3 <Dona DiezMAURISIO-C - Last Filed: 09/25/21 10:09> Extrem Other: +1 pitting ankle edema <Dona DiezMAURISIO-C - Last Filed: 09/25/21 10:09> General: Yes normal to inspection <Dona DiezMAURISIO-C - Last Filed: 09/25/21 10:09> Results Labs and Meds Result diagrams: : 09/17/21 06:03 09/25/21 05:19 <Dona DiezMAURISIO-C - Last Filed: 09/25/21 10:09> Lab results: Laboratory Results - last 24 hr 09/24/21 09/24/21 09/24/21 11:08 12:48 16:36 Sodium Potassium Chloride Carbon Dioxide Anion Gap BUN Creatinine Estim Creat Clear Calc Estimated GFR POC Glucose 243 H 219 H Random Glucose Calcium B-Natriuretic Peptide 1130 H 09/24/21 09/25/21 09/25/21 20:06 05:19 05:19 Sodium Cancelled 136 Potassium Cancelled 2.8 L Chloride Cancelled 90 L Carbon Dioxide Cancelled 31 H Anion Gap Cancelled 18 BUN Cancelled 81 H* Creatinine Cancelled 2.84 H Estim Creat Clear Calc Cancelled 20.4 Estimated GFR Cancelled 22 POC Glucose 240 H Random Glucose Cancelled 215 H Calcium Cancelled 8.7 B-Natriuretic Peptide 09/25/21 09/25/21 05:19 07:16 Sodium Potassium Chloride Carbon Dioxide Anion Gap BUN Creatinine Estim Creat Clear Calc Estimated GFR POC Glucose 208 H Random Glucose Calcium B-Natriuretic Peptide 1477 H <GIOVANA Macias - Last Filed: 09/25/21 10:09> Progress Note: A&P Assessment and plan (1) Acute on chronic diastolic (congestive) heart failure: Status: Acute <GIOVANA Macias - Last Filed: 09/25/21 10:09> Assessment and Plan: Admit with sob. Being treated for decompensated HFpEF. Being diuresed with IV Lasix drip at this time, 10mg/hr. Recieved a dose of Metolazone yesterday. Fluid balance neg 6.1 liters since admit. Has CKD, Cr has been mostly stable. Cr 2.84 today. Nephrology following as well. He still has signs of fluid overload on exam with rales, JVD, orthopnea, PND, edema. He has cardiomems HF monitoring sensor in place. PAD reading yesterday 18. Today 14. PAD goal initially set at 14-15mmhg however clinical he still looks like he needs further diuresing. Will continue Lasix drip at 10mg/ hr. K 2.8 today - needs replacement. Continue strict I+O monitoring, close monitoring of electrolyte and kidney function. Electrolyte replacement as warranted. We will follow <GIOVANA Macias - Last Filed: 09/25/21 10:09> Admit with sob. Being treated for decompensated HFpEF. Being diuresed with IV Lasix drip at this time, 10mg/hr. Recieved a dose of Metolazone yesterday. Fluid balance neg 6.1 liters since admit. Has CKD, Cr has been mostly stable. Cr 2.84 today. Nephrology following as well. He still has signs of fluid overload on exam with rales, JVD, orthopnea, PND, edema. He has cardiomems HF monitoring sensor in place. PAD reading yesterday 18. Today 14. PAD goal initially set at 14-15mmhg however clinical he still looks like he needs further diuresing. Will continue Lasix drip at 10mg/ hr. K 2.8 today - needs replacement. Continue strict I+O monitoring, close monitoring of electrolyte and kidney function. Electrolyte replacement as warranted. We will follow Patient seen and examined. Case discussed with Dona cadena here. Patient still very short of breath with limited activity and complaining of orthopnea. Has diuresed. His readings today from Card[facility] of 14 which are at his goal. However clinically appears to be still in decompensated congestive heart failure. Will continue Lasix drip. May be reduced his pulmonary artery diastolic goal to 12 mm of mercury. Will check readings tomorrow and if it is at 12 will also check his BNP to see if there is down trended. His responses been very slow, may be related to poor diuretic response and diuretic resistance. Will switch to Bumex drip today. Strict intake and output chart needs to be pursued. Continue to replace electrolytes. Physical therapy consult. Chest x-ray has been requested. Will follow with the patient. <Eric Richardson MD - Last Filed: 09/25/21 10:13> (2) Presence of CardioMEMS HF system: Status: Acute <GIOVANA Macias - Last Filed: 09/25/21 10:09> (3) CKD (chronic kidney disease) stage 4, GFR 15-29 ml/min: Status: Acute <GIOVANA Macias - Last Filed: 09/25/21 10:09> (4) Hypokalemia: Status: Acute <GIOVANA Mcaias - Last Filed: 09/25/21 10:09> Fall Risk Details Current Medications: Current Medications Acetaminophen (Acetaminophen 325 Mg Tablet) 650 mg PO Q6H PRN PRN Reason: Pain, Mild (Pain Scale 1-3) Last Admin: 09/20/21 21:07 Dose: 650 mg Documented by: Albuterol/Ipratropium (Albuterol/Iprat 2.5/0.5mg 3 Ml Ampul.Neb) 3 ml INHALE Q4H PRN PRN Reason: Shortness of Breath/Wheezing Last Admin: 09/24/21 20:31 Dose: 3 ml Documented by: Amiodarone HCl (Amiodarone Hcl 200 Mg Tablet) 200 mg PO DAILY [facility] Last Admin: 09/25/21 09:01 Dose: 200 mg Documented by: Apixaban (Apixaban 5 Mg Tablet) 5 mg PO BID [facility] Last Admin: 09/25/21 09:01 Dose: 5 mg Documented by: Atorvastatin Calcium (Atorvastatin Calcium 40 Mg Tablet) 40 mg PO BEDTIME [facility] Last Admin: 09/24/21 20:42 Dose: 40 mg Documented by: Dextrose (Dextrose 50 % 25 Gm/50 Ml Vial) 25 gm IVPUSH Q15M PRN; Protocol PRN Reason: per Hypoglycemia Standing Ord. Glucose (Glucose Gel 15 Gm Gel..Gram.) 15 gm PO Q15M PRN; Protocol PRN Reason: per Hypoglycemia Standing Ord. Furosemide 200 mg/ Sodium (Chloride) 100 mls @ 5 mls/hr IVCONT .Q20H [facility] Last Admin: 09/25/21 09:01 Dose: 10 mg/hr, 5 mls/hr Documented by: Insulin Human Lispro (Insulin Lispro 100 Unit/Ml 3 Ml Vial) 0 unit SUBCUT QIDACHS [facility]; Protocol Last Admin: 09/25/21 09:01 Dose: 2 unit Documented by: Magnesium Hydroxide (Milk Of Magnesia 30 Ml Oral.Susp) 30 ml PO DAILY PRN PRN Reason: Constipation Melatonin (Melatonin 3 Mg Tablet) 6 mg PO BEDTIME PRN PRN Reason: Insomnia Last Admin: 09/18/21 21:05 Dose: 6 mg Documented by: Pharmacy Consult (Consult Rx Perform Med Rec) 1 each MISCELLANE ONCE PRN PRN Reason: Consult order Pharmacy Consult (Consult Rx Perform Med Rec) 1 each MISCELLANE ONCE PRN PRN Reason: Consult order Senna (Sennosides 8.6 Mg Tablet) 17.2 mg PO BEDTIME PRN PRN Reason: Constipation Last Admin: 09/20/21 21:07 Dose: 17.2 mg Documented by: Sodium Chloride (0.9 % Sodium Chloride Flush 3 Ml Syringe) 3 ml IVFLUSH QSHIFT [facility] Last Admin: 09/25/21 09:05 Dose: 3 ml Documented by: <GIOVANA Macias - Last Filed: 09/25/21 10:09> Time Spent With Patient Time: Total time spent is greater than 50% in coordination of care (as documented) at patient's floor/unit and/or counseling patient: 27 <GIOVANA Macias - Last Filed: 09/25/21 10:09> Time with patient: 25 - 35 minutes <GIOVANA Macias - Last Filed: 09/25/21 10:09> Progress Note: Quality Stroke Does the patient have a stroke diagnosis?: No <GIOVANA Macias - Last Filed: 09/25/21 10:09> Procedures Date of Service Date of Service: 09/25/21 <GIOVANA Macias - Last Filed: 09/25/21 10:09>
--- NOTE | 2021-09-25 11:04 | PM.PNNEP ---
Subjective Subjective Date of Service: 09/25/21 Principal diagnosis: CKD, CHF Interval history: Subjectively still short of breath; Events noted. 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 Physical Exam Vital Signs: Vital Signs: Last Vital Signs Temp 98.2 F 09/25/21 07:20 Pulse 81 09/25/21 07:20 Resp 18 09/25/21 07:20 BP 104/60 09/25/21 07:20 Pulse Ox 94 09/25/21 07:20 Body Mass Index 28.6 Const: General: no acute distress Orientation/consciousness: patient oriented x3 Eyes: EOM: EOMs intact bilaterally Neck: Neck: Yes supple Resp: Auscultation: crackles and diminished lung sounds Cardio: Heart sounds: no rubs GI: Palpation (GI): Soft to palpation Neuro: General: patient oriented x3 and moves all extremities Objective Data Labs CBC & Chem 7: 09/17/21 06:03 09/25/21 05:19 Labs: Laboratory Results - last 24 hr 09/24/21 09/24/21 09/24/21 11:08 12:48 16:36 Sodium Potassium Chloride Carbon Dioxide Anion Gap BUN Creatinine Estim Creat Clear Calc Estimated GFR POC Glucose 243 H 219 H Random Glucose Calcium B-Natriuretic Peptide 1130 H 09/24/21 09/25/21 09/25/21 20:06 05:19 05:19 Sodium Cancelled 136 Potassium Cancelled 2.8 L Chloride Cancelled 90 L Carbon Dioxide Cancelled 31 H Anion Gap Cancelled 18 BUN Cancelled 81 H* Creatinine Cancelled 2.84 H Estim Creat Clear Calc Cancelled 20.4 Estimated GFR Cancelled 22 POC Glucose 240 H Random Glucose Cancelled 215 H Calcium Cancelled 8.7 B-Natriuretic Peptide 09/25/21 09/25/21 05:19 07:16 Sodium Potassium Chloride Carbon Dioxide Anion Gap BUN Creatinine Estim Creat Clear Calc Estimated GFR POC Glucose 208 H Random Glucose Calcium B-Natriuretic Peptide 1477 H Microbiology Microbiology Results: Microbiology 09/16/21 21:44 Blood - Venous Blood Culture - Final No growth after 5 days. 09/16/21 21:44 Blood - Venous Blood Culture - Final No growth after 5 days. Procedures Date of Service Date of Service: 09/25/21 Assessment & Plan Assessment and plan (1) CKD (chronic kidney disease) stage 4, GFR 15-29 ml/min: Status: Acute Assessment and Plan: Has advanced CKD due to DM/HTN Baseline Scr 2.5-3 mg/dl Renal functions close to baseline minimal proteinuria with normal renal US Needs to keep K over 4 Suggest V/Q scan, High resolution CT & Pulm consult Continue rest of current supportive care Shall arrange close office follow up when D/Timothy Time Spent With Patient Time: Total time spent is greater than 50% in coordination of care (as documented) at patient's floor/unit and/or counseling patient: Progress Note: Quality Stroke Does the patient have a stroke diagnosis?: No
[2021-09-25] MEDS: Bumetanide 25 MG in Container,Empty 0 ML IVCONT (11:22)
--- NOTE | 2021-09-25 11:45 | P.CDIC_ITS ---
CDI Concurrent Query Documentation Clarification: PHYSICIAN'S DOCUMENTATION REQUEST Date of Query: 09/25/21 1146 Patient Name: Jonathan Menjivar Admit Date: 09/16/21 Dear Doctor, A review of the medical record indicates additional documentation may be needed. Please review below and update the documentation accordingly. Clinical Indicators: The purpose of this query is not to question medical judgment, but to ensure the accuracy of the conditions reported for your patient. Clinical indicators in the record include: Risk Factors/Clinical Indicators/Treatments PN 09/19 - Sepsis due to pneumonia, no severe sepsis, renal function is chronic and not due to sepsis. PN 09/21 - ? PNA what appears initially like pneumonia and met sepsis criteria now seems related to heart failure given no symptoms of pneumonia and improving with heart failure treatment. Discontinue antibiotics. Pulmonary 09/19 - worsening dyspnea secondary to exacerbation of heart failure patient does not clinically have signs of pneumonia. The request is for one of the following: * Additional documentation to support the condition. Indicate if this is in lieu of what may be considered standard criteria, and/or support why the standard criteria may not be present for this patient Please clarify the documentation of [include the diagnosis]: Pneumonia, treating, rule out, suspected etc. Sepsis due to pneumonia, treating rule out suspected etc. * [ ] remains a known or suspected condition for this patient and is fu rther supported by (include additional documentation in the medical record) * [ ] has been ruled out and a more appropriate diagnosis for this patient?s condition is * Other (please specify) * Unable to determine Use of terms such as suspected, likely, concern for, or probable (associated with a specific diagnosis that is being evaluated, monitored, or treated as if it exists) are acceptable and can be coded in the inpatient setting, when documented at the time of discharge. Thank you, Calista Quintero [facility] Extension: [phone] Please use your independent medical judgment in providing your response. THIS QUERY IS PART OF THE PERMANENT MEDICAL RECORD Provider Response: Other Other Diagnosis: Unlikely pneumonia.. The
[2021-09-25 12:12] LABS: Glucose, Whole Blood 164 mg/dL (60-115)
[2021-09-25] MEDS: Potassium Chloride ER 20 MEQ TAB.ER.PRT 40 MEQ PO (12:35)
--- NOTE | 2021-09-25 13:01 | P.PNIM_ITS ---
Subjective Subjective Date of Service: 09/25/21 Interval History: chf Review of Systems Shortness of breath seems improving, denies any chest pain or abdominal pain or fever chills. Physical Exam Vital Signs: Vital Signs: Last Vital Signs Temp 98.4 F 09/25/21 12:00 Pulse 87 09/25/21 12:00 Resp 18 09/25/21 12:00 BP 106/65 09/25/21 12:00 Pulse Ox 100 09/25/21 12:00 Body Mass Index 28.6 General: AO X 3, no acute distress Resp:? CTA bilateral CVS: S1,S2,RRR, no JVD, 2+ankle edema GI: +BS, NT, no distention Skin: No rash, has mild edema Neuro:? motor grossly intact Psych: appropriate affect Objective Data Active Medications Acetaminophen (Acetaminophen 325 Mg Tablet) 650 mg PO Q6H PRN PRN Reason: Pain, Mild (Pain Scale 1-3) Last Admin: 09/20/21 21:07 Dose: 650 mg Documented by: VICKI Albuterol/Ipratropium (Albuterol/Iprat 2.5/0.5mg 3 Ml Ampul.Neb) 3 ml INHALE Q4H PRN PRN Reason: Shortness of Breath/Wheezing Last Admin: 09/24/21 20:31 Dose: 3 ml Documented by: SHERIE Amiodarone HCl (Amiodarone Hcl 200 Mg Tablet) 200 mg PO DAILY [facility] Last Admin: 09/25/21 09:01 Dose: 200 mg Documented by: BE Apixaban (Apixaban 5 Mg Tablet) 5 mg PO BID [facility] Last Admin: 09/25/21 09:01 Dose: 5 mg Documented by: BE Atorvastatin Calcium (Atorvastatin Calcium 40 Mg Tablet) 40 mg PO BEDTIME [facility] Last Admin: 09/24/21 20:42 Dose: 40 mg Documented by: VICKI Dextrose (Dextrose 50 % 25 Gm/50 Ml Vial) 25 gm IVPUSH Q15M PRN; Protocol PRN Reason: per Hypoglycemia Standing Ord. Glucose (Glucose Gel 15 Gm Gel..Gram.) 15 gm PO Q15M PRN; Protocol PRN Reason: per Hypoglycemia Standing Ord. Bumetanide 25 mg/ IV (Miscellaneous Supplies) 100 mls @ 1 mls/hr IVCONT .Q24H [facility] Last Admin: 09/25/21 11:22 Dose: 0.25 mg/hr, 1 mls/hr Documented by: LIV Insulin Human Lispro (Insulin Lispro 100 Unit/Ml 3 Ml Vial) 0 unit SUBCUT QIDACHS [facility]; Protocol Last Admin: 09/25/21 12:39 Dose: 2 unit Documented by: BE Magnesium Hydroxide (Milk Of Magnesia 30 Ml Oral.Susp) 30 ml PO DAILY PRN PRN Reason: Constipation Melatonin (Melatonin 3 Mg Tablet) 6 mg PO BEDTIME PRN PRN Reason: Insomnia Last Admin: 09/18/21 21:05 Dose: 6 mg Documented by: PING Pharmacy Consult (Consult Rx Perform Med Rec) 1 each MISCELLANE ONCE PRN PRN Reason: Consult order Pharmacy Consult (Consult Rx Perform Med Rec) 1 each MISCELLANE ONCE PRN PRN Reason: Consult order Senna (Sennosides 8.6 Mg Tablet) 17.2 mg PO BEDTIME PRN PRN Reason: Constipation Last Admin: 09/20/21 21:07 Dose: 17.2 mg Documented by: VICKI Sodium Chloride (0.9 % Sodium Chloride Flush 3 Ml Syringe) [facility] Last Admin: 09/25/21 09:05 Dose: 3 ml Documented by: BE Labs CBC & Chem 7: 09/17/21 06:03 09/25/21 05:19 Labs: Laboratory Results - last 24 hr 09/24/21 09/24/21 09/24/21 12:48 16:36 20:06 Anion Gap Estim Creat Clear Calc Estimated GFR POC Glucose 219 H 240 H Random Glucose Calcium B-Natriuretic Peptide 1130 H 09/25/21 09/25/21 09/25/21 05:19 05:19 05:19 Anion Gap Cancelled 18 Estim Creat Clear Calc Cancelled 20.4 Estimated GFR Cancelled 22 POC Glucose Random Glucose Cancelled 215 H Calcium Cancelled 8.7 B-Natriuretic Peptide 1477 H 09/25/21 09/25/21 07:16 12:04 Anion Gap Estim Creat Clear Calc Estimated GFR POC Glucose 208 H 164 H Random Glucose Calcium B-Natriuretic Peptide Assessment and Plan (1) Hypokalemia: Status: Acute (2) Heart failure: Status: Acute Assessment and Plan: 76-year-old male with a past medical history of hypertension, hyperlipidemia, diabetes, CAD, CHF, history of COVID-19 infection, obesity, obstructive sleep apnea, recent admission to the hospital for NSTEMI status post stress test; history of AFib on Eliquis, chronic kidney disease presented to the hospital wi th a chief complaint of shortness of breath.? Noted to have multifocal pneumonia on CT chest.? Admitted for further management. 1.Dyspnea due to Heart failure--clnically improving, no hypoxia, continue treatment of underlying CHF Initially was on antibiotics for suspicion of pneumonia-but subsequently was switched to IV Lasix since etiology of dyspnea was thought to be CHF related. Acute on chronic systolic heart failure-- still sob overnight , has some dry cough changed to bumex iv, monitor I/O, renal function, so far negative 3400 -replace K as needed, repeat magnesium and potassium levels cxr , perfusion scan,hrct. Cardiology following 2.Elevated troponins:? noted to be thopught likely from CKD, no chest pain. 3.Hypokalemia--from diuretics, K supplement PO,? keep K around 4 Shoulder pain xray mild arthritis. 4.CKD 3, stable there is NO? MORTEZA, being worked up for pulmonary renal syndrome 5.Diabetes:? Insulin sliding scale. 6.Chronic AFib:? Rate controlled.? Continue home Eliquis, continue amio Code status:? Full code Quality Stroke Does the patient have a stroke diagnosis?: No VTE Prior VTE?: No VTE Risk Level:: Medical - moderate - high VTE Device Contraindication: Treatment Not Indicated VTE Drug Contraindication: N/A - Med Ordered
--- NOTE | 2021-09-25 13:40 | MHC.CM.PN ---
[facility] UPDATED IN [facility]. NO PLAN FOR DC TODAY PATIENT ON BUMEX DRIP AND POSSIBLE PERFUSION SCAN
[2021-09-25 16:53] LABS: Glucose, Whole Blood 226 mg/dL (60-115)
[2021-09-25 20:36] LABS: Glucose, Whole Blood 207 mg/dL (60-115)
[2021-09-25] MEDS: Atorvastatin Calcium 40 MG TABLET PO (21:05)
[2021-09-25] MEDS: Albuterol/Iprat 2.5/0.5MG 3 ML AMPUL.NEB INHALE (21:13)
[2021-09-26] MEDS: Melatonin 3 MG TABLET 6 MG PO ×2 (02:23→21:31)
[2021-09-26 04:00] VITALS: RESP 14
[2021-09-26 06:17] LABS: Anion Gap 18 (12-20); Blood Urea Nitrogen 89 mg/dL (9-16); Calcium 8.6 mg/dL (8.4-10.2); Carbon Dioxide 32 mmol/L (22-29); Chloride 91 mmol/L (96-108); Creatinine Clr Calc Pharmacy 20.4; Estimated Glomerular Filt Rate 22; Glucose Random 170 mg/dL (60-115); Potassium 2.8 mmol/L (3.3-5.1); Sodium 138 mmol/L (135-145)
[2021-09-26 07:48] VITALS: BP 109/61; PULSE 79; RESP 18; TEMP 36.3; O2SAT 96
[2021-09-26 07:49] LABS: Magnesium 2.2 mg/dL (1.6-2.6)
[2021-09-26 07:52] LABS: Glucose, Whole Blood 173 mg/dL (60-115)
[2021-09-26] MEDS: Amiodarone HCL 200 MG TABLET PO (07:56)
[2021-09-26] MEDS: Apixaban 5 MG TABLET PO ×2 (07:56→21:24)
[2021-09-26] MEDS: Insulin Lispro 100 UNIT/ML 3 ML VIAL SUBCUT ×4 (07:56→21:24)
[2021-09-26] MEDS: Potassium Chloride/H20 10 MEQ/100 ML PIGGYBACK 100 MEQ IV ×2 (07:57→09:27)
[2021-09-26] MEDS: 0.9 % Sodium Chloride Flush 3 ML SYRINGE IVFLUSH ×3 (07:57→21:26)
[2021-09-26] MEDS: Potassium Chloride Packet 20 MEQ PACKET 40 MEQ PO (08:11)
[2021-09-26 08:26] LABS: Procalcitonin 0.49 ng/mL
--- NOTE | 2021-09-26 10:20 | P.PNCA_ITS ---
Subjective Subjective Date of Service: 09/26/21 <GIOVANA Macias - Last Filed: 09/26/21 10:41> 09/26/21 <Eric Richardson MD - Last Filed: 09/26/21 12:24> Principal diagnosis: CKD, CHF <GIOVANA Macias - Last Filed: 09/26/21 10:41> Interval history: Cardiology follow up for CHF. Seen at 0830. Today he reports that he is still feeling sob with laying down and has intermittent coughing. He did better last night then the night before. No chest pains, sob, palpitation. Still has mild swelling at ankles. Has Bumex drip infusing. Cardiomems reading obtained this am. <GIOVANA Macias - Last Filed: 09/26/21 10:41> Review of Systems Review of Systems as above <GIOVANA Macias - Last Filed: 09/26/21 10:41> Yes all other systems are reviewed and are negative <GIOVANA Macias - Last Filed: 09/26/21 10:41> Physical Exam Vital Signs: Last Vital Signs Temp 97.3 F 09/26/21 07:48 Pulse 79 09/26/21 07:48 Resp 18 09/26/21 07:48 BP 109/61 09/26/21 07:48 Pulse Ox 96 09/26/21 07:48 Body Mass Index 28.6 <GIOVANA Macias - Last Filed: 09/26/21 10:41> Const General: cooperative, no acute distress, alert and awake <GIOVANA Macias - Last Filed: 09/26/21 10:41> Orientation/consciousness: patient oriented x3 <GIOVANA Macias - Last Filed: 09/26/21 10:41> Neck Neck: Yes normal visual inspection <GIOVANA Macias Last Filed: 09/26/21 10:41> Resp Effort & Inspection: normal respiratory effort, able to speak in complete sentences and not labored <GIOVANA Macias - Last Filed: 09/26/21 10:41> Auscultation: clear to auscultation bilaterally, no rales, no rhonchi and no wheezes <Dona Diez NP - Last Filed: 09/26/21 10:41> Cardio Jugular venous distension: JVD present <Dona ANTONIO Diez - Last Filed: 09/26/21 10:41> Palpation: normal PMI <[facility] MAURISIO Diez - Last Filed: 09/26/21 10:41> Rate: regular rate <Dona M MAURISIO Diez - Last Filed: 09/26/21 10:41> Rhythm: regular rhythm <[facility] MAURISIO Diez - Last Filed: 09/26/21 10:41> Heart sounds: S1 normal heart sound present and S2 normal heart sound present <Dona MAURISIO Diez - Last Filed: 09/26/21 10:41> Peripheral pulses: Peripheral pulses 2+ throughout <Dona M Chary [facility] - Last Filed: 09/26/21 10:41> GI Inspection: Yes normal to inspection <[facility] MAURISIO Diez - Last Filed: 09/26/21 10:41> Neuro General: patient oriented x3 <Dona MAURISIO Diez - Last Filed: 09/26/21 10:41> Extrem Other: bilateral ankle edema <[facility] MAURISIO Diez - Last Filed: 09/26/21 10:41> General: Yes normal to inspection <[facility] MAURISIO Diez - Last Filed: 09/26/21 10 :41> Results Labs and Meds Result diagrams: : 09/17/21 06:03 09/26/21 05:08 <Dona Diez [facility] - Last Filed: 09/26/21 10:41> Lab results: Laboratory Results - last 24 hr 09/25/21 09/25/21 09/25/21 12:04 16:47 20:31 Sodium Potassium Chloride Carbon Dioxide Anion Gap BUN Creatinine Estim Creat Clear Calc Estimated GFR POC Glucose 164 H 226 H 207 H Random Glucose Calcium Magnesium Procalcitonin 09/26/21 09/26/21 09/26/21 05:08 05:08 07:46 Sodium 138 Potassium 2.8 L Chloride 91 L Carbon Dioxide 32 H Anion Gap 18 BUN 89 H* Creatinine 2.84 H Estim Creat Clear Calc 20.4 Estimated GFR 22 POC Glucose 173 H Random Glucose 170 H Calcium 8.6 Magnesium 2.2 Procalcitonin 0.49 <GIOVANA Macias - Last Filed: 09/26/21 10:41> Imaging Radiologist's impression: Impressions Chest CT 09/25/21 12:48 IMPRESSION: 1. Increased and new airspace opacities in the upper lobes with a somewhat perihilar distribution which can be seen with bronchopneumonia, atypical viral pneumonia and pulmonary edema. 2. Mildly increase compression atelectasis/consolidation at the right lung base. 3. Stable pleural effusions. 4. There is a background of mild centrilobular emphysema. 5. There are a few bilateral subcentimeter pulmonary nodules which are likely reactive in nature. This should be follow-up to ensure resolution. 6. Stable lymphadenopathy. Pulmonary Perfusion Imaging 09/25/21 13:00 IMPRESSION: Low probability of pulmonary embolism. Chest X-Ray 09/25/21 13:16 IMPRESSION: Mild bilateral perihilar edema with small bilateral effusions, greater on right. <GIOVANA Macias - Last Filed: 09/26/21 10:41> Progress Note: A&P Assessment and plan (1) Acute on chronic diastolic (congestive) heart failure: Status: Acute <GIOVANA Macias - Last Filed: 09/26/21 10:41> Assessment and Plan: Acute on chronic HFpEF. Being diuresed. Yesterday IV Lasix changed to IV Bumex. Fluid balance neg 6.2 liters since admit. Has CKD with Cr 2.84 which has been stable. BNP yesterday 1477 which was similar to admit. His diuresis has been slow due to his CKD. Nephrology is following as well. He has been reporting ongoing orthopnea and PND, slight improvement in last day. CT of chest yesterday shows opacities seen with atypical PNA and pulm edema. CXR yest shows mild bilateral perihilar edema, small bilateral pleural effusions R>L. Pulm perfusion scan yest showed low probability of PE. The hospitalist has asked Pulmonary to see him again today. He is not hypoxic, Sat 96% on RA. Cardiomems reading this am 15mmhg. We will continue to treat him for HF. Continue Bumex drip. Ongoing strict I+O monitoring. Close monitoring of electrolyte and kidney function. K 2.8 this am and he is already recieving potassium supplement. BNP in am. We will follow. <GIOVANA Macias - Last Filed: 09/26/21 10:41> Acute on chronic HFpEF. Being diuresed. Yesterday IV Lasix changed to IV Bumex. Fluid balance neg 6.2 liters since admit. Has CKD with Cr 2.84 which has been stable. BNP yesterday 1477 which was similar to admit. His diuresis has been slow due to his CKD. Nephrology is following as well. He has been reporting ongoing orthopnea and PND, slight improvement in last day. CT of chest yesterday shows opacities seen with atypical PNA and pulm edema. CXR yest shows mild bilateral perihilar edema, small bilateral pleural effusions R>L. Pulm perfusion scan yest showed low probability of PE. The hospitalist has asked Pulmonary to see him again today. He is not hypoxic, Sat 96% on RA. Cardiomems reading this am 15mmhg. We will continue to treat him for HF. Continue Bumex drip. Ongoing strict I+O monitoring. Close monitoring of electrolyte and kidney function. K 2.8 this am and he is already recieving potassium supplement. BNP in am. We will follow. Patient seen and examined. Patient's pressure today are at 15 on the CardioMEMS. These are higher than yesterday. Seems like yesterday there reading was performed while patient was in a semi reclining position. Feeling better today as per him. Still complains of fatigue and shortness of breath. Has been evaluated by Pulmonary team as well. Continue IV diuresis today strict intake and output chart needs to be pursued. Aggressive replacement of potassium needs to be pursued. Will follow readings tomorrow. Target pulmonary artery diastolic pressure less than 14. Continue other medications. There is no evidence of clear amiodarone toxicity on CT scan. Continue full oral anticoagulation. Will follow with the patient. <Eric Richardson MD - Last Filed: 09/26/21 12:24> (2) Presence of CardioMEMS HF system: Status: Acute <GIOVANA Macias - Last Filed: 09/26/21 10:41> (3) Hypokalemia: Status: Acute <GIOVANA Macias - Last Filed: 09/26/21 10:41> (4) PAF (paroxysmal atrial fibrillation): Status: Acute <GIOVANA Macias - Last Filed: 09/26/21 10:41> Assessment and Plan: Suppressed with Amiodarone. Tele shows SR, rates 70-80s. On Eliquis for anticoagulation. No reports of bleeding. No med change. Ongoing tele monitoring. <GIOVANA Macias - Last Filed: 09/26/21 10:41> (5) CKD (chronic kidney disease) stage 4, GFR 15-29 ml/min: Status: Acute <GIOVANA Macias - Last Filed: 09/26/21 10:41> Fall Risk Details Current Medications: Current Medications Acetaminophen (Acetaminophen 325 Mg Tablet) 650 mg PO Q6H PRN PRN Reason: Pain, Mild (Pain Scale 1-3) Last Admin: 09/20/21 21:07 Dose: 650 mg Documented by: Albuterol/Ipratropium (Albuterol/Iprat 2.5/0.5mg 3 Ml Ampul.Neb) 3 ml INHALE Q4H PRN PRN Reason: Shortness of Breath/Wheezing Last Admin: 09/25/21 21:13 Dose: 3 ml Documented by: Amiodarone HCl (Amiodarone Hcl 200 Mg Tablet) 200 mg PO DAILY [facility] Last Admin: 09/26/21 07:56 Dose: 200 mg Documented by: Apixaban (Apixaban 5 Mg Tablet) 5 mg PO BID [facility] Last Admin: 09/26/21 07:56 Dose: 5 mg Documented by: Atorvastatin Calcium (Atorvastatin Calcium 40 Mg Tablet) 40 mg PO BEDTIME [facility] Last Admin: 09/25/21 21:05 Dose: 40 mg Documented by: Dextrose (Dextrose 50 % 25 Gm/50 Ml Vial) 25 gm IVPUSH Q15M PRN; Protocol PRN Reason: per Hypoglycemia Standing Ord. Glucose (Glucose Gel 15 Gm Gel..Gram.) 15 gm PO Q15M PRN; Protocol PRN Reason: per Hypoglycemia Standing Ord. Guaifenesin (Guaifenesin 100 Mg/5 Ml Liquid) 5 ml PO Q6H PRN PRN Reason: Cough Bumetanide 25 mg/ IV (Miscellaneous Supplies) 100 mls @ 1 mls/hr IVCONT .Q24H [facility] Last Admin: 09/25/21 11:22 Dose: 0.25 mg/hr, 1 mls/hr Documented by: Insulin Human Lispro (Insulin Lispro 100 Unit/Ml 3 Ml Vial) 0 unit SUBCUT QIDACHS [facility]; Protocol Last Admin: 09/26/21 07:56 Dose: 2 unit Documented by: Magnesium Hydroxide (Milk Of Magnesia 30 Ml Oral.Susp) 30 ml PO DAILY PRN PRN Reason: Constipation Melatonin (Melatonin 3 Mg Tablet) 6 mg PO BEDTIME PRN PRN Reason: Insomnia Last Admin: 09/26/21 02:23 Dose: 6 mg Documented by: Pharmacy Consult (Consult Rx Perform Med Rec) 1 each MISCELLANE ONCE PRN PRN Reason: Consult order Pharmacy Consult (Consult Rx Perform Med Rec) 1 each MISCELLANE ONCE PRN PRN Reason: Consult order Senna (Sennosides 8.6 Mg Tablet) 17.2 mg PO BEDTIME PRN PRN Reason: Constipation Last Admin: 09/20/21 21:07 Dose: 17.2 mg Documented by: Sodium Chloride (0.9 % Sodium Chloride Flush 3 Ml Syringe) 3 ml IVFLUSH [facility] Last Admin: 09/26/21 07:57 Dose: 3 ml Documented by: <GIOVANA Macias - Last Filed: 09/26/21 10:41> Time Spent With Patient Time: Total time spent is greater than 50% in coordination of care (as documented) at patient's floor/unit and/or counseling patient: 26 <GIOVANA Macias - Last Filed: 09/26/21 10:41> Time with patient: 25 - 35 minutes <GIOVANA Macias - Last Filed: 09/26/21 10:41> Progress Note: Quality Stroke Does the patient have a stroke diagnosis?: No <GIOVANA Macias - Last Filed: 09/26/21 10:41> Procedures Date of Service Date of Service: 09/26/21 <GIOVANA Macias Last Filed: 09/26/21 10:41>
--- NOTE | 2021-09-26 10:36 | P.PNPL_ITS ---
Subjective Subjective Date of Service: 09/26/21 Principal diagnosis: CKD, CHF/ Q. OF pNEUMONIA Interval history: THIS 76 YEARS OLD GENTLEMAN IS BEING SEEN BY ME FOR FOR MENIERE FOLLOW-UP. ON ADMISSION HE WAS NOTED TO HAVE BILATERAL ALVEOLAR DENSITIES IN THE PERIHILAR AREA AND LOWER LOBE, ALONG WITH CHANGES OF CONGESTIVE HEART FAILURE. IT WAS FELT THAT HIS DIAGNOSIS WAS MAINLY CONGESTIVE HEART FAILURE, WITH PLEURAL EFFUSION, AND CLINICALLY HE DID NOT HAVE ANY INDICATORS FOR PNEUMONIA. PATIENT HAS BEEN TREATED WITH THE DIURESIS, CONGESTIVE HEART FAILURE HAS CL INICALLY IMPROVED. PATIENT ALSO HAS STAGE IV CKD. THIS GENTLEMAN HAS NOT REQUIRED USE OF OXYGEN. HE REMAINS AFEBRILE, LAB INDICATES NO LEUKOCYTOSIS. A REPEAT CT SCAN PERFORMED FOR FOLLOW-UP, ON 09/25, SHOWS NEW ALVEOLAR DENSITIES IN THE UPPER LOBES, I SAW THIS PATIENT THIS MORNING AND HE IS FULLY COMFORTABLE WITH RESPIRATORY RATE OF 16 AND HE IS NOT IN ANY DISTRESS, TEMPERATURE IS NORMAL. Objective Data Labs CBC & Chem 7: 09/17/21 06:03 09/26/21 05:08 Labs: Laboratory Results - last 24 hr 09/25/21 09/25/21 09/25/21 12:04 16:47 20:31 Sodium Potassium Chloride Carbon Dioxide Anion Gap BUN Creatinine Estim Creat Clear Calc Estimated GFR POC Glucose 164 H 226 H 207 H Random Glucose Calcium Magnesium Procalcitonin 09/26/21 09/26/21 09/26/21 05:08 05:08 07:46 Sodium 138 Potassium 2.8 L Chloride 91 L Carbon Dioxide 32 H Anion Gap 18 BUN 89 H* Creatinine 2.84 H Estim Creat Clear Calc 20.4 Estimated GFR 22 POC Glucose 173 H Random Glucose 170 H Calcium 8.6 Magnesium 2.2 Procalcitonin 0.49 Microbiology Microbiology Results: Microbiology 09/16/21 21:44 Blood - Venous Blood Culture - Final No growth after 5 days. 09/16/21 21:44 Blood - Venous Blood Culture - Final No growth after 5 days. Physical Exam Vital Signs: Vital Signs: Last Vital Signs Temp 97.3 F 09/26/21 07:48 Pulse 79 09/26/21 07:48 Resp 18 09/26/21 07:48 BP 109/61 09/26/21 07:48 Pulse Ox 96 09/26/21 07:48 Body Mass Index 28.6 Chest: Chest palpation & inspection: normal inspection of the chest, normal palpation of entire chest wall and no tenderness Resp: Other: PERCUSSION NOTE IS RESONANT, HE DOES HAVE BREATH SOUNDS ON BOTH SIDES WITH PROLONGED EXPIRATORY PHASE. NO INSPIRATORY CREPITATIONS ARE HEARD OVER THE UPPER LOBES, THERE ARE A FEW CREPITATIONS OVER THE BASES. NO WHEEZES. Procedures Date of Service Date of Service: 09/26/21 Assessment and Plan Assessment and plan (1) CKD (chronic kidney disease) stage 4, GFR 15-29 ml/min: Problem details: STABLE AND NOT AN ACTIVE PROBLEM AT THIS TIME Status: Acute (2) Abnormal CT scan, chest: Problem details: CT SCAN SHOWS ALVEOLAR DENSITIES IN THE UPPER LOBES WELL IN THE LEFT LOWER LOBE. THERE ARE ALSO CHANGES OF PULMONARY CONGESTION. THE PLEURAL EFFUSIONS SEEN ON THE INITIAL CT SCAN HAVE GREATLY IMPROVED. I THINK THESE ALVEOLAR DENSITIES ARE NONSPECIFIC, INFLAMMATORY,, AND NOT DUE TO ACTIVE PNEUMONIA. RECOMMENDATION PATIENT SHOULD BE UP AND AROUND MUCH POSSIBLE, SHOULD BE INSTRUCTED TO DO DEEP BREATHING EXERCISES. MONITOR FOR HYPOXEMIA. SHOULD HAVE A REPEAT CT SCAN OF THE CHEST, IF HE BECOMES SYMPTOMATIC, OR AFTER 4 WEEKS. Status: Acute (3) Acute on chronic diastolic (congestive) heart failure: Problem details: HAS BEEN TREATED, IMPROVED, BEING FOLLOWED BY CARDIOLOGY ACTIVELY. Status: Acute Time Spent With Patient Time: Total time spent is greater than 50% in coordination of care (as documented) at patient's floor/unit and/or counseling patient: Time with patient: 25 - 35 minutes Progress Note: Quality Stroke Does the patient have a stroke diagnosis?: No
[2021-09-26] MEDS: Bumetanide 25 MG in Container,Empty 0 ML IVCONT (11:07)
[2021-09-26 11:33] VITALS: BP 107/62; PULSE 79; RESP 18; TEMP 36.6; O2SAT 97
[2021-09-26 11:38] LABS: Glucose, Whole Blood 209 mg/dL (60-115)
--- NOTE | 2021-09-26 12:33 | PM.PNNEP ---
Subjective Subjective Date of Service: 09/26/21 Principal diagnosis: CKD, CHF/ Q. OF pNEUMONIA Interval history: Seen AM. Events noted. All recent data reviewed Physical Exam Vital Signs: Vital Signs: Last Vital Signs Temp 97.9 F 09/26/21 11:33 Pulse 79 09/26/21 11:33 Resp 18 09/26/21 11:33 BP 107/62 09/26/21 11:33 Pulse Ox 97 09/26/21 11:33 Body Mass Index 28.6 Const: General: no acute distress Orientation/consciousness: patient oriented x3 HENMT: Head: Yes normocephalic Eyes: EOM: EOMs intact bilaterally Resp: Auscultation: diminished lung sounds Cardio: Rate: regular rate GI: Palpation (GI): Soft to palpation Neuro: General: patient oriented x3 and moves all extremities Objective Data Labs CBC & Chem 7: 09/17/21 06:03 09/26/21 05:08 Labs: Laboratory Results - last 24 hr 09/25/21 09/25/21 09/26/21 16:47 20:31 05:08 Sodium 138 Potassium 2.8 L Chloride 91 L Carbon Dioxide 32 H Anion Gap 18 BUN 89 H* Creatinine 2.84 H Estim Creat Clear Calc 20.4 Estimated GFR 22 POC Glucose 226 H 207 H Random Glucose 170 H Calcium 8.6 Magnesium 2.2 Procalcitonin 09/26/21 09/26/21 09/26/21 05:08 07:46 11:32 Sodium Potassium Chloride Carbon Dioxide Anion Gap BUN Creatinine Estim Creat Clear Calc Estimated GFR POC Glucose 173 H 209 H Random Glucose Calcium Magnesium Procalcitonin 0.49 Microbiology Microbiology Results: Microbiology 09/16/21 21:44 Blood - Venous Blood Culture - Final No growth after 5 days. 09/16/21 21:44 Blood - Venous Blood Culture - Final No growth after 5 days. Procedures Date of Service Date of Service: 09/26/21 Assessment & Plan Assessment and plan (1) CKD (chronic kidney disease) stage 4, GFR 15-29 ml/min: Status: Acute Assessment and Plan: Has advanced CKD due to DM/HTN Baseline Scr 2.5-3 mg/dl Renal functions close to baseline minimal proteinuria with normal renal US Needs to keep K over 4 Continue rest of current supportive care Time Spent With Patient Time: Total time spent is greater than 50% in coordination of care (as documented) at patient's floor/unit and/or counseling patient: Progress Note: Quality Stroke Does the patient have a stroke diagnosis?: No
--- NOTE | 2021-09-26 13:15 | HO.PM.IMPN ---
Subjective Subjective Date of Service: 09/26/21 Interval History: chf Review of Systems Shortness of breath she is seem to better, cough also improved Physical Exam Vital Signs: Vital Signs: Last Vital Signs Temp 97.9 F 09/26/21 11:33 Pulse 79 09/26/21 11:33 Resp 18 09/26/21 11:33 BP 107/62 09/26/21 11:33 Pulse Ox 97 09/26/21 11:33 Body Mass Index 28.6 General: AO X 3, no acute distress Resp:? CTA bilateral CVS: S1,S2,RRR, no JVD, 2+ankle edema GI: +BS, NT, no distention Skin: No rash, has mild edema Neuro:? motor grossly intact Psych: appropriate affect Objective Data Active Medications Acetaminophen (Acetaminophen 325 Mg Tablet) 650 mg PO Q6H PRN PRN Reason: Pain, Mild (Pain Scale 1-3) Last Admin: 09/20/21 21:07 Dose: 650 mg Documented by: VICKI Albuterol/Ipratropium (Albuterol/Iprat 2.5/0.5mg 3 Ml Ampul.Neb) 3 ml INHALE Q4H PRN PRN Reason: Shortness of Breath/Wheezing Last Admin: 09/25/21 21:13 Dose: 3 ml Documented by: CHRIS Amiodarone HCl (Amiodarone Hcl 200 Mg Tablet) 200 mg PO DAILY [facility] Last Admin: 09/26/21 07:56 Dose: 200 mg Documented by: BE Apixaban (Apixaban 5 Mg Tablet) 5 mg PO BID [facility] Last Admin: 09/26/21 07:56 Dose: 5 mg Documented by: BE Atorvastatin Calcium (Atorvastatin Calcium 40 Mg Tablet) 40 mg PO BEDTIME [facility] Last Admin: 09/25/21 21:05 Dose: 40 mg Documented by: ODRISKarlie Dextrose (Dextrose 50 % 25 Gm/50 Ml Vial) 25 gm IVPUSH Q15M PRN; Protocol PRN Reason: per Hypoglycemia Standing Ord. Glucose (Glucose Gel 15 Gm Gel..Gram.) 15 gm PO Q15M PRN; Protocol PRN Reason: per Hypoglycemia Standing Ord. Guaifenesin (Guaifenesin 100 Mg/5 Ml Liquid) 5 ml PO Q6H PRN PRN Reason: Cough Bumetanide 25 mg/ IV (Miscellaneous Supplies) 100 mls @ 1 mls/hr IVCONT .Q24H [facility] Last Admin: 09/26/21 11:07 Dose: 0.25 mg/hr, 1 mls/hr Documented by: BE Insulin Human Lispro (Insulin Lispro 100 Unit/Ml 3 Ml Vial) 0 unit SUBCUT QIDACHS [facility]; Protocol Last Admin: 09/26/21 12:13 Dose: 4 unit Documented by: BE Magnesium Hydroxide (Milk Of Magnesia 30 Ml Oral.Susp) 30 ml PO DAILY PRN PRN Reason: Constipation Melatonin (Melatonin 3 Mg Tablet) 6 mg PO BEDTIME PRN PRN Reason: Insomnia Last Admin: 09/26/21 02:23 Dose: 6 mg Documented by: DEBBIE Pharmacy Consult (Consult Rx Perform Med Rec) 1 each MISCELLANE ONCE PRN PRN Reason: Consult order Pharmacy Consult (Consult Rx Perform Med Rec) 1 each MISCELLANE ONCE PRN PRN Reason: Consult order Senna (Sennosides 8.6 Mg Tablet) 17.2 mg PO BEDTIME PRN PRN Reason: Constipation Last Admin: 09/20/21 21:07 Dose: 17.2 mg Documented by: VICKI Sodium Chloride (0.9 % Sodium Chloride Flush 3 Ml Syringe) [facility] Last Admin: 09/26/21 07:57 Dose: 3 ml Documented by: BE Labs CBC & Chem 7: 09/17/21 06:03 09/26/21 05:08 Labs: Laboratory Results - last 24 hr 09/25/21 09/25/21 09/26/21 16:47 20:31 05:08 Anion Gap 18 Estim Creat Clear Calc 20.4 Estimated GFR 22 POC Glucose 226 H 207 H Random Glucose 170 H Calcium 8.6 Magnesium 2.2 Procalcitonin 09/26/21 09/26/21 09/26/21 05:08 07:46 11:32 Anion Gap Estim Creat Clear Calc Estimated GFR POC Glucose 173 H 209 H Random Glucose Calcium Magnesium Procalcitonin 0.49 Assessment and Plan (1) Heart failure: Status: Acute Assessment and Plan: 76-year-old male with a past medical history of hypertension, hyperlipidemia, diabetes, CAD, CHF, history of COVID-19 infection, obesity, obstructive sleep apnea, recent admission to the hospital for NSTEMI status post stress test; history of AFib on Eliquis, chronic kidney disease presented to the hospital with a chief complaint of shortness of breath.? Noted to have multifocal pneumonia on CT chest.? Admitted for further management. 1.Dyspnea due to Heart failure--clnically improving, no hypoxia, continue treatment of underlying CHF Initially was on antibiotics for suspicion of pneumonia-but subsequently was switched to IV Lasix since etiology of dyspnea was thought to be CHF related. Acute on chronic systolic heart failure-- still sob overnight , has some dry cough changed to bumex iv, monitor I/O, renal function, so far negative 3400 -replace K as needed, repeat magnesium and potassium levels cxr , perfusion scan,hrct-reviewed with Pulmonary and cardio and ID: Most likely CHF related. Continue IV bumex patient is around Denies any new complaint of chest pain or shortness of breath or abdominal pain or fever or chills or nausea or vomiting Denies any cough Denies any weakness or numbness.6 liter. neg 2.Elevated troponins:? noted to be thopught likely from CKD, no chest pain. 3.Hypokalemia--from diuretics, K supplement? PO,? keep K around 4 Shoulder pain xray mild arthritis. 4.CKD 3, stable there is NO? MORTEZA, being worked up for pulmonary renal syndrome 5.Diabetes:? Insulin sliding scale. 6.Chronic AFib:? Rate controlled.? Continue home Eliquis, continue amio Code status:? Full code Quality Stroke Does the patient have a stroke diagnosis?: No VTE Prior VTE?: No VTE Risk Level:: Medical - moderate - high VTE Device Contraindication: Treatment Not Indicated VTE Drug Contraindication: N/A - Med Ordered
[2021-09-26 15:38] VITALS: BP 103/57; PULSE 70; RESP 16; TEMP 36.3; O2SAT 99
[2021-09-26] MEDS: Acetaminophen 325 MG TABLET 650 MG PO (16:03)
[2021-09-26] MEDS: guaiFENesin 100 MG/5 ML LIQUID PO (16:11)
[2021-09-26 16:42] LABS: Glucose, Whole Blood 177 mg/dL (60-115)
[2021-09-26 18:06] LABS: B Type Natriuretic Peptide 2080 pg/mL (<100)
[2021-09-26 19:40] VITALS: BP 99/57; PULSE 80; RESP 17; TEMP 36.1; O2SAT 99
[2021-09-26 20:35] LABS: Glucose, Whole Blood 184 mg/dL (60-115)
[2021-09-26] MEDS: Atorvastatin Calcium 40 MG TABLET PO (21:24)
[2021-09-26 23:57] VITALS: BP 103/59; PULSE 80; RESP 18; TEMP 36.1; O2SAT 99
[2021-09-27] VITALS (7 sets, daily range): BP systolic 88–113; BP diastolic 57–66; PULSE 67–78; RESP 14–18; TEMP 36–37; O2SAT 96–98
[2021-09-27 06:53] LABS: Anion Gap 18 (12-20); Blood Urea Nitrogen 96 mg/dL (9-16); Calcium 8.5 mg/dL (8.4-10.2); Carbon Dioxide 32 mmol/L (22-29); Chloride 89 mmol/L (96-108); Creatinine Clr Calc Pharmacy 19.2; Estimated Glomerular Filt Rate 20; Glucose Random 163 mg/dL (60-115); Potassium 2.9 mmol/L (3.3-5.1); Sodium 136 mmol/L (135-145)
[2021-09-27 06:56] LABS: B Type Natriuretic Peptide 1962 pg/mL (<100)
[2021-09-27] MEDS: Insulin Lispro 100 UNIT/ML 3 ML VIAL SUBCUT ×4 (07:42→21:14)
[2021-09-27] MEDS: 0.9 % Sodium Chloride Flush 3 ML SYRINGE IVFLUSH ×3 (07:42→19:55)
[2021-09-27 07:57] LABS: Glucose, Whole Blood 157 mg/dL (60-115)
[2021-09-27] MEDS: Potassium Chloride/H20 10 MEQ/100 ML PIGGYBACK 100 MEQ IV ×2 (08:29→09:42)
[2021-09-27] MEDS: Potassium Chloride Packet 20 MEQ PACKET 40 MEQ PO (08:31)
[2021-09-27] MEDS: Amiodarone HCL 200 MG TABLET PO (08:31)
[2021-09-27] MEDS: Apixaban 5 MG TABLET PO ×2 (08:31→19:55)
[2021-09-27] MEDS: polyethylene glycoL 3350 17 GM POWD.PACK PO (09:40)
[2021-09-27] MEDS: guaiFEN/Codeine SF 200/20/10ML 10 ML LIQUID 5 ML PO ×3 (09:41→19:55)
[2021-09-27 12:03] LABS: Glucose, Whole Blood 249 mg/dL (60-115)
[2021-09-27] MEDS: Bumetanide 25 MG in Container,Empty 0 ML IVCONT (12:12)
--- NOTE | 2021-09-27 12:22 | PM.PNCARD ---
Subjective Subjective Date of Service: 09/27/21 Principal diagnosis: CKD, CHF/ Q. OF pNEUMONIA Interval history: Patient still short of breath last night. While doing the reading for [facility] he was very short of breath and had cough. Reading on the [facility] and 16, higher than yesterday. Overnight intake and output chart showed only about 100-balance. Not sure if this is accurate Review of Systems Constitutional: Reports malaise and Reports weakness Cardiovascular: Denies chest pain, Denies Loss of Consciousness, Denies palpitations, Reports dyspnea on exertion and Reports orthopnea Respiratory: Reports cough and Reports dyspnea on exertion Gastrointestinal: Reports no additional gastrointestinal complaints Musculoskeletal: Reports no additional musculoskeletal complaints Skin/Breast: Reports system reviewed and no additional complaints, except as docu Reports system reviewed and no additional complaints, except as documented and Reports weakness Psychiatric: Reports no additional psychiatric complaints Endocrine: Denies palpitations Physical Exam Vital Signs: Last Vital Signs Temp 98.6 F 09/27/21 11:48 Pulse 72 09/27/21 11:48 Resp 18 09/27/21 11:48 BP 113/66 09/27/21 11:48 Pulse Ox 98 09/27/21 11:48 Body Mass Index 28.6 Const General: cooperative, in distress mild and respiratory, ill appearing and tired appearing Nutritional Appearance: average body habitus Orientation/consciousness: patient oriented x3 Neck Neck: Yes trachea midline, Yes supple and Yes JVD Resp Effort & Inspection: normal respiratory effort Auscultation: crackles and diminished lung sounds Cardio Jugular venous distension: JVD Palpation: normal PMI Rate: regular rate Rhythm: regular rhythm Heart sounds: S1 normal heart sound present, S2 normal heart sound present, no click, no gallops and no murmurs GI Auscultation: normal bowel sounds Neuro General: patient oriented x3 and no focal motor deficits Extrem General: No clubbing, No cyanosis and Yes edema Results Labs and Meds Result diagrams: 09/17/21 06:03 09/27/21 06:04 Lab results: Laboratory Results - last 24 hr 09/26/21 09/26/21 09/26/21 16:33 17:28 20:27 Sodium Potassium Chloride Carbon Dioxide Anion Gap BUN Creatinine Estim Creat Clear Calc Estimated GFR POC Glucose 177 H 184 H Random Glucose Calcium B-Natriuretic Peptide 2080 H 09/27/21 09/27/21 09/27/21 06:04 06:04 07:21 Sodium 136 Potassium 2.9 L Chloride 89 L Carbon Dioxide 32 H Anion Gap 18 BUN 96 H* Creatinine 3.03 H Estim Creat Clear Calc 19.2 Estimated GFR 20 POC Glucose 157 H Random Glucose 163 H Calcium 8.5 B-Natriuretic Peptide 1962 H 09/27/21 11:47 Sodium Potassium Chloride Carbon Dioxide Anion Gap BUN Creatinine Estim Creat Clear Calc Estimated GFR POC Glucose 249 H Random Glucose Calcium B-Natriuretic Peptide Progress Note: A&P Assessment and plan (1) Acute on chronic diastolic (congestive) heart failure: Status: Acute Assessment and Plan: Very slowly responding heart failure persistently elevated filling pressures, actually higher than yesterday. This is very unusual. This sized a suggest diuretic resistance and poor response with the kidneys. Increase Bumex to 0.5 mg an hour and add metolazone to enhance diuresis. Continue strict intake and output chart. Will continue to follow pressure measurements. Continue supportive care. Overall prognosis is guarded. (2) PAF (paroxysmal atrial fibrillation): Status: Acute Assessment and Plan: Paroxysmal atrial fibrillation, remained suppressed on amiodarone therapy. Continue the same. Continue full oral anticoagulation as prescribed. Will follow with the patient Fall Risk Details Current Medications: Current Medications Acetaminophen (Acetaminophen 325 Mg Tablet) 650 mg PO Q6H PRN PRN Reason: Pain, Mild (Pain Scale 1-3) Last Admin: 09/26/21 16:03 Dose: 650 mg Documented by: Albuterol/Ipratropium (Albuterol/Iprat 2.5/0.5mg 3 Ml Ampul.Neb) 3 ml INHALE Q4H PRN PRN Reason: Shortness of Breath/Wheezing Last Admin: 09/25/21 21:13 Dose: 3 ml Documented by: Amiodarone HCl (Amiodarone Hcl 200 Mg Tablet) 200 mg PO DAILY [facility] Last Admin: 09/27/21 08:31 Dose: 200 mg Documented by: Apixaban (Apixaban 5 Mg Tablet) 5 mg PO BID [facility] Last Admin: 09/27/21 08:31 Dose: 5 mg Documented by: Atorvastatin Calcium (Atorvastatin Calcium 40 Mg Tablet) 40 mg PO BEDTIME [facility] Last Admin: 09/26/21 21:24 Dose: 40 mg Documented by: Dextrose (Dextrose 50 % 25 Gm/50 Ml Vial) 25 gm IVPUSH Q15M PRN; Protocol PRN Reason: per Hypoglycemia Standing Ord. Glucose (Glucose Gel 15 Gm Gel..Gram.) 15 gm PO Q15M PRN; Protocol PRN Reason: per Hypoglycemia Standing Ord. Guaifenesin/Codeine Phosphate (Guaifen/Codeine Sf 200/20/10ml 10 Ml Liquid) 5 ml PO Q6H [facility] Last Admin: 09/27/21 09:41 Dose: 5 ml Documented by: Bumetanide 25 mg/ IV (Miscellaneous Supplies) 100 mls @ 1 mls/hr IVCONT .Q24H [facility] Last Admin: 09/27/21 12:12 Dose: 0.25 mg/hr, 1 mls/hr Documented by: Insulin Human Lispro (Insulin Lispro 100 Unit/Ml 3 Ml Vial) 0 unit SUBCUT QIDACHS [facility]; Protocol Last Admin: 09/27/21 12:12 Dose: 4 unit Documented by: Magnesium Hydroxide (Milk Of Magnesia 30 Ml Oral.Susp) 30 ml PO DAILY PRN PRN Reason: Constipation Melatonin (Melatonin 3 Mg Tablet) 6 mg PO BEDTIME PRN PRN Reason: Insomnia Last Admin: 09/26/21 21:31 Dose: 6 mg Documented by: Pharmacy Consult (Consult Rx Perform Med Rec) 1 each MISCELLANE ONCE PRN PRN Reason: Consult order Pharmacy Consult (Consult Rx Perform Med Rec) 1 each MISCELLANE ONCE PRN PRN Reason: Consult order Senna (Sennosides 8.6 Mg Tablet) 17.2 mg PO BEDTIME PRN PRN Reason: Constipation Last Admin: 09/20/21 21:07 Dose: 17.2 mg Documented by: Sodium Chloride (0.9 % Sodium Chloride Flush 3 Ml Syringe) 3 ml IVFLUSH QSHIFT [facility] Last Admin: 09/27/21 07:42 Dose: 3 ml Documented by: Time Spent With Patient Time: Total time spent is greater than 50% in coordination of care (as documented) at patient's floor/unit and/or counseling patient: Time with patient: 25 - 35 minutes Progress Note: Quality Stroke Does the patient have a stroke diagnosis?: No Procedures Date of Service Date of Service: 09/27/21
[2021-09-27] MEDS: metOLazone 2.5 MG TABLET PO (12:55)
[2021-09-27 13:04] LABS: Potassium 4.2 mmol/L (3.3-5.1)
--- NOTE | 2021-09-27 13:09 | HO.PM.IMPN ---
Subjective Subjective Date of Service: 09/27/21 Interval History: chf Review of Systems Shortness of breath seems improving, still has edema. Denies any chest denies any chest pain or nausea vomiting. Had cough last night Physical Exam Vital Signs: Vital Signs: Last Vital Signs Temp 98.6 F 09/27/21 11:48 Pulse 72 09/27/21 11:48 Resp 18 09/27/21 11:48 BP 113/66 09/27/21 11:48 Pulse Ox 98 09/27/21 11:48 Body Mass Index 28.6 Physical exam: Appearance: Alert.? Oriented X3.? not in distress.? Eyes: Pupils equal, round and reactive to light.? Sclera nonicteric.? ENT: Pharynx normal.? Moist mucous membranes. cvs: rrr, [id number] , jvd present res: clear to auscultation ,no rhonchii or wheezing abd: no rebound or guarding ,nt, bs present. ext pulses present , no cyanosis ,1+ edema neuro: axo3 , nonfocal. Objective Data Active Medications Acetaminophen (Acetaminophen 325 Mg Tablet) 650 mg PO Q6H PRN PRN Reason: Pain, Mild (Pain Scale 1-3) Last Admin: 09/26/21 16:03 Dose: 650 mg Documented by: BE Albuterol/Ipratropium (Albuterol/Iprat 2.5/0.5mg 3 Ml Ampul.Neb) 3 ml INHALE Q4H PRN PRN Reason: Shortness of Breath/Wheezing Last Admin: 09/25/21 21:13 Dose: 3 ml Documented by: CHRIS Amiodarone HCl (Amiodarone Hcl 200 Mg Tablet) 200 mg PO DAILY [facility] Last Admin: 09/27/21 08:31 Dose: 200 mg Documented by: FIDEL Apixaban (Apixaban 5 Mg Tablet) 5 mg PO BID [facility] Last Admin: 09/27/21 08:31 Dose: 5 mg Documented by: FIDEL Atorvastatin Calcium (Atorvastatin Calcium 40 Mg Tablet) 40 mg PO BEDTIME [facility] Last Admin: 09/26/21 21:24 Dose: 40 mg Documented by: CASTILKarlie Dextrose (Dextrose 50 % 25 Gm/50 Ml Vial) 25 gm IVPUSH Q15M PRN; Protocol PRN Reason: per Hypoglycemia Standing Ord. Glucose (Glucose Gel 15 Gm Gel..Gram.) 15 gm PO Q15M PRN; Protocol PRN Reason: per Hypoglycemia Standing Ord. Guaifenesin/Codeine Phosphate (Guaifen/Codeine Sf 200/20/10ml 10 Ml Liquid) 5 ml PO Q6H [facility] Last Admin: 09/27/21 09:41 Dose: 5 ml Documented by: FIDEL Bumetanide 25 mg/ IV (Miscellaneous Supplies) 100 mls @ 2 mls/hr IVCONT .Q24H [facility] Last Infusion: 09/27/21 12:55 Dose: 0.5 mg/hr, 2 mls/hr Documented by: FIDEL Insulin Human Lispro (Insulin Lispro 100 Unit/Ml 3 Ml Vial) 0 unit SUBCUT QIDACHS [facility]; Protocol Last Admin: 09/27/21 12:12 Dose: 4 unit Documented by: FIDEL Magnesium Hydroxide (Milk Of Magnesia 30 Ml Oral.Susp) 30 ml PO DAILY PRN PRN Reason: Constipation Melatonin (Melatonin 3 Mg Tablet) 6 mg PO BEDTIME PRN PRN Reason: Insomnia Last Admin: 09/26/21 21:31 Dose: 6 mg Documented by: GISELE Pharmacy Consult (Consult Rx Perform Med Rec) 1 each MISCELLANE ONCE PRN PRN Reason: Consult order Pharmacy Consult (Consult Rx Perform Med Rec) 1 each MISCELLANE ONCE PRN PRN Reason: Consult order Senna (Sennosides 8.6 Mg Tablet) 17.2 mg PO BEDTIME PRN PRN Reason: Constipation Last Admin: 09/20/21 21:07 Dose: 17.2 mg Documented by: VICKI Sodium Chloride (0.9 % Sodium Chloride Flush 3 Ml Syringe) 3 ml IVFLUSH QSHIFT [facility] Last Admin: 09/27/21 07:42 Dose: 3 ml Documented by: FIDEL Labs CBC & Chem 7: 09/17/21 06:03 09/27/21 12:38 Labs: Laboratory Results - last 24 hr 09/26/21 09/26/21 09/26/21 16:33 17:28 20:27 Anion Gap Estim Creat Clear Calc Estimated GFR POC Glucose 177 H 184 H Random Glucose Calcium B-Natriuretic Peptide 2080 H 09/27/21 09/27/21 09/27/21 06:04 06:04 07:21 Anion Gap 18 Estim Creat Clear Calc 19.2 Estimated GFR 20 POC Glucose 157 H Random Glucose 163 H Calcium 8.5 B-Natriuretic Peptide 1962 H 09/27/21 11:47 Anion Gap Estim Creat Clear Calc Estimated GFR POC Glucose 249 H Random Glucose Calcium B-Natriuretic Peptide Assessment and Plan (1) Hypokalemia: Status: Acute (2) CKD (chronic kidney disease) stage 4, GFR 15-29 ml/min: Status: Acute (3) Chronic heart failure with preserved ejection fraction (HFpEF): Status: Acute Assessment and Plan: 76-year-old male with a past medical history of hypertension, hyperlipidemia, diabetes, CAD, CHF, history of COVID-19 infection, obesity, obstructive sleep apnea, recent admission to the hospital for NSTEMI status post stress test; history of AFib on Eliquis, chronic kidney disease presented to the hospital with a chief complaint of shortness of breath.? Noted to have multifocal pneumonia on CT chest.? Admitted for further management. 1.Dyspnea due to Heart failure--clnically improving, no hypoxia, continue treatment of underlying CHF Initially was on antibiotics for suspicion of pneumonia-but subsequently was switched to IV Lasix since etiology of dyspnea was thought to be CHF related. Acute on chronic systolic heart failure-- Less short of breath last night, had 1 time coughing spell Repleted K as needed, repeat potassium levels cxr , perfusion scan,hrct-reviewed with Pulmonary and cardio and ID:? Most likely CHF related. Very slowly responding heart failure persistently elevated filling pressures, actually higher than yesterday.? This is very unusual.? This sized a suggest diuretic resistance and poor response with the kidneys. d/w Continue IV bumex adjusted , added metolazone , monitor I/O, renal function, patient -6 to 7 L 2.Elevated troponins:? noted to be thopught likely from CKD, no chest pain. 3.Hypokalemia--from diuretics, K supplement? PO,? keep K around 4 Shoulder pain xray mild arthritis. 4.CKD 3, stable there is NO? MORTEZA, being worked up for pulmonary renal syndrome 5.Diabetes:? Insulin sliding scale. 6.Chronic AFib:? Rate controlled.? Continue home Eliquis, continue amio Code status:? Full code Quality Stroke Does the patient have a stroke diagnosis?: No VTE Prior VTE?: No VTE Risk Level:: Medical - moderate - high VTE Device Contraindication: Treatment Not Indicated VTE Drug Contraindication: N/A - Med Ordered
--- NOTE | 2021-09-27 13:41 | PM.PNNEP ---
Subjective Subjective Date of Service: 09/27/21 Principal diagnosis: CKD, CHF/ Q. OF pNEUMONIA Interval history: Events noted. All recent data reviewed Physical Exam Vital Signs: Vital Signs: Last Vital Signs Temp 98.6 F 09/27/21 11:48 Pulse 72 09/27/21 11:48 Resp 18 09/27/21 11:48 BP 113/66 09/27/21 11:48 Pulse Ox 98 09/27/21 11:48 Body Mass Index 28.6 Const: General: no acute distress Orientation/consciousness: patient oriented x3 HENMT: Head: Yes normocephalic Eyes: EOM: EOMs intact bilaterally Neck: Neck: Yes supple Resp: Auscultation: diminished lung sounds Cardio: Rate: regular rate GI: Palpation (GI): Soft to palpation Neuro: General: patient oriented x3 and moves all extremities Objective Data Labs CBC & Chem 7: 09/17/21 06:03 09/27/21 12:38 Labs: Laboratory Results - last 24 hr 09/26/21 09/26/21 09/26/21 16:33 17:28 20:27 Sodium Potassium Chloride Carbon Dioxide Anion Gap BUN Creatinine Estim Creat Clear Calc Estimated GFR POC Glucose 177 H 184 H Random Glucose Calcium B-Natriuretic Peptide 2080 H 09/27/21 09/27/21 09/27/21 06:04 06:04 07:21 Sodium 136 Potassium 2.9 L Chloride 89 L Carbon Dioxide 32 H Anion Gap 18 BUN 96 H* Creatinine 3.03 H Estim Creat Clear Calc 19.2 Estimated GFR 20 POC Glucose 157 H Random Glucose 163 H Calcium 8.5 B-Natriuretic Peptide 1962 H 09/27/21 09/27/21 11:47 12:38 Sodium Potassium 4.2 D Chloride Carbon Dioxide Anion Gap BUN Creatinine Estim Creat Clear Calc Estimated GFR POC Glucose 249 H Random Glucose Calcium B-Natriuretic Peptide Microbiology Microbiology Results: Microbiology 09/16/21 21:44 Blood - Venous Blood Culture - Final No growth after 5 days. 09/16/21 21:44 Blood - Venous Blood Culture - Final No growth after 5 days. Procedures Date of Service Date of Service: 09/27/21 Assessment & Plan Assessment and plan (1) Acute kidney injury superimposed on CKD: Status: Acute Assessment and Plan: Has advanced CKD due to DM/HTN Baseline Scr 2.5-3 mg/dl Renal functions marginally worse minimal proteinuria with normal renal US Needs to keep K over 4 No great response with diuresis Continue rest of current supportive care May have to consider UF if not clinically improving Time Spent With Patient Time: Total time spent is greater than 50% in coordination of care (as documented) at patient's floor/unit and/or counseling patient: Progress Note: Quality Stroke Does the patient have a stroke diagnosis?: No
[2021-09-27 15:45] LABS: Glucose, Whole Blood 200 mg/dL (60-115)
[2021-09-27] MEDS: Pregabalin 75 MG CAPSULE PO (18:25)
[2021-09-27] MEDS: Milk of Magnesia 30 ML ORAL.SUSP PO (18:30)
[2021-09-27 19:44] LABS: Glucose, Whole Blood 204 mg/dL (60-115)
[2021-09-27] MEDS: Atorvastatin Calcium 40 MG TABLET PO (19:55)
[2021-09-27] MEDS: Melatonin 3 MG TABLET 6 MG PO (21:15)
[2021-09-27] MEDS: Sennosides 8.6 MG TABLET 17.2 MG PO (21:15)
[2021-09-28] VITALS (7 sets, daily range): BP systolic 95–115; BP diastolic 54–67; PULSE 70–105; RESP 16–18; TEMP 36–37.2; O2SAT 94–99
[2021-09-28 07:08] LABS: Anion Gap 18 (12-20); Blood Urea Nitrogen 92 mg/dL (9-16); Calcium 8.9 mg/dL (8.4-10.2); Carbon Dioxide 34 mmol/L (22-29); Chloride 90 mmol/L (96-108); Creatinine Clr Calc Pharmacy 19.7; Estimated Glomerular Filt Rate 21; Glucose Random 143 mg/dL (60-115); Potassium 3.3 mmol/L (3.3-5.1); Sodium 139 mmol/L (135-145)
[2021-09-28 07:18] LABS: Glucose, Whole Blood 142 mg/dL (60-115)
[2021-09-28] MEDS: Apixaban 5 MG TABLET PO ×2 (07:57→21:43)
[2021-09-28] MEDS: Amiodarone HCL 200 MG TABLET PO (07:57)
[2021-09-28] MEDS: 0.9 % Sodium Chloride Flush 3 ML SYRINGE IVFLUSH ×3 (07:57→21:44)
[2021-09-28] MEDS: guaiFEN/Codeine SF 200/20/10ML 10 ML LIQUID 5 ML PO ×2 (07:58→21:43)
--- NOTE | 2021-09-28 09:43 | HO.PM.IMPN ---
Subjective Subjective Date of Service: 09/28/21 Interval History: chf-slow response to diuretics Review of Systems He says overnight no shortness of breath events shortness of breath -Feeling better no cough overnight No fever or chills Physical Exam Vital Signs: Vital Signs: Last Vital Signs Temp 97.1 F 09/28/21 07:50 Pulse 91 09/28/21 07:50 Resp 18 09/28/21 07:50 BP 115/56 L 09/28/21 07:50 Pulse Ox 97 09/28/21 07:50 Body Mass Index 28.6 Appearance: Alert.? Oriented X3.? not in distress.? Eyes: Pupils equal, round and reactive to light.? Sclera nonicteric.? ENT: Pharynx normal.? Moist mucous membranes. cvs: rrr, [id number] , jvd present res: clear to auscultation ,no rhonchii or wheezing abd: no rebound or guarding ,nt, bs present. ext pulses present , no cyanosis ,1+ edema neuro: axo3 , nonfocal. Objective Data Active Medications Acetaminophen (Acetaminophen 325 Mg Tablet) 650 mg PO Q6H PRN PRN Reason: Pain, Mild (Pain Scale 1-3) Last Admin: 09/26/21 16:03 Dose: 650 mg Documented by: BE Albuterol/Ipratropium (Albuterol/Iprat 2.5/0.5mg 3 Ml Ampul.Neb) 3 ml INHALE Q4H PRN PRN Reason: Shortness of Breath/Wheezing Last Admin: 09/25/21 21:13 Dose: 3 ml Documented by: CHRIS Amiodarone HCl (Amiodarone Hcl 200 Mg Tablet) 200 mg PO DAILY [facility] Last Admin: 09/28/21 07:57 Dose: 200 mg Documented by: FIDEL Apixaban (Apixaban 5 Mg Tablet) 5 mg PO BID [facility] Last Admin: 09/28/21 07:57 Dose: 5 mg Documented by: FIDEL Atorvastatin Calcium (Atorvastatin Calcium 40 Mg Tablet) 40 mg PO BEDTIME [facility] Last Admin: 09/27/21 19:55 Dose: 40 mg Documented by: CASTILKarlie Dextrose (Dextrose 50 % 25 Gm/50 Ml Vial) 25 gm IVPUSH Q15M PRN; Protocol PRN Reason: per Hypoglycemia Standing Ord. Glucose (Glucose Gel 15 Gm Gel..Gram.) 15 gm PO Q15M PRN; Protocol PRN Reason: per Hypoglycemia Standing Ord. Guaifenesin/Codeine Phosphate (Guaifen/Codeine Sf 200/20/10ml 10 Ml Liquid) 5 ml PO Q6H [facility] Last Admin: 09/28/21 07:58 Dose: 5 ml Documented by: FIDEL Bumetanide 25 mg/ IV (Miscellaneous Supplies) 100 mls @ 2 mls/hr IVCONT .Q24H [facility] Last Infusion: 09/27/21 12:55 Dose: 0.5 mg/hr, 2 mls/hr Documented by: FIDEL Insulin Human Lispro (Insulin Lispro 100 Unit/Ml 3 Ml Vial) 0 unit SUBCUT QIDACHS [facility]; Protocol Last Admin: 09/28/21 07:19 Dose: Not Given Documented by: FIDEL Non-Admin Reason: No Insulin Coverage Magnesium Hydroxide (Milk Of Magnesia 30 Ml Oral.Susp) 30 ml PO DAILY PRN PRN Reason: Constipation Last Admin: 09/27/21 18:30 Dose: 30 ml Documented by: FIDEL Melatonin (Melatonin 3 Mg Tablet) 6 mg PO BEDTIME PRN PRN Reason: Insomnia Last Admin: 09/27/21 21:15 Dose: 6 mg Documented by: GISELE Pharmacy Consult (Consult Rx Perform Med Rec) 1 each MISCELLANE ONCE PRN PRN Reason: Consult order Pharmacy Consult (Consult Rx Perform Med Rec) 1 each MISCELLANE ONCE PRN PRN Reason: Consult order Senna (Sennosides 8.6 Mg Tablet) 17.2 mg PO BEDTIME PRN PRN Reason: Constipation Last Admin: 09/27/21 21:15 Dose: 17.2 mg Documented by: GISELE Sodium Chloride (0.9 % Sodium Chloride Flush 3 Ml Syringe) 3 ml IVFLUSH QSHIFT [facility] Last Admin: 09/28/21 07:57 Dose: 3 ml Documented by: FIDEL Labs CBC & Chem 7: 09/17/21 06:03 09/28/21 05:42 Labs: Laboratory Results - last 24 hr 09/27/21 09/27/21 09/27/21 11:47 15:07 19:31 Anion Gap Estim Creat Clear Calc Estimated GFR POC Glucose 249 H 200 H 204 H Random Glucose Calcium 09/28/21 09/28/21 05:42 07:05 Anion Gap 18 Estim Creat Clear Calc 19.7 Estimated GFR 21 POC Glucose 142 H Random Glucose 143 H Calcium 8.9 Assessment and Plan (1) Dyspnea: Status: Acute (2) Acute kidney injury superimposed on CKD: Status: Acute (3) Acute on chronic diastolic (congestive) heart failure: Status: Acute Assessment and Plan: 76-year-old male with a past medical history of hypertension, hyperlipidemia, diabetes, CAD, CHF, history of COVID-19 infection, obesity, obstructive sleep apnea, recent admission to the hospital for NSTEMI status post stress test; history of AFib on Eliquis, chronic kidney disease presented to the hospital with a chief complaint of shortness of breath.? Noted to have multifocal pneumonia on CT chest.? Admitted for further management. 1.Dyspnea due to Heart failure--clnically improving, no hypoxia, continue treatment of underlying CHF Initially was on antibiotics for suspicion of pneumonia-but subsequently was switched to IV Lasix since etiology of dyspnea was thought to be CHF related. Acute on chronic systolic heart failure-- Less short of breath last night, had 1 time coughing spell Repleted K as needed cxr , perfusion scan,hrct-reviewed with Pulmonary and cardio and ID:? Most likely CHF related. Very slowly responding heart failure persistently elevated filling pressures, actually higher than yesterday.? This is very unusual.? This sized a suggest diuretic resistance and poor response with the kidneys. d/w Continue IV bumex adjusted , added metolazone , monitor I/O, renal function, patient -7-8 liter neg( last 24hours 625 ml neg) moniter renal function and electrolytes closely cardiology following 2.Elevated troponins:? noted to be thopught likely from CKD, no chest pain. 3.Hypokalemia--from diuretics, K supplement? PO,? keep K around 4 Shoulder pain xray mild arthritis. 4.CKD 3, stable there is NO? MORTEZA, being worked up for pulmonary renal syndrome 5.Diabetes:? Insulin sliding scale. 6.Chronic AFib:? Rate controlled.? Continue home Eliquis, continue amio cardio and pulm follwing Code status:? Full code Quality Stroke Does the patient have a stroke diagnosis?: No VTE Prior VTE?: No VTE Risk Level:: Medical - moderate - high VTE Device Contraindication: Treatment Not Indicated VTE Drug Contraindication: N/A - Med Ordered
[2021-09-28] MEDS: Potassium Chloride ER 20 MEQ TAB.ER.PRT 40 MEQ PO (10:23)
[2021-09-28] MEDS: Bumetanide 25 MG in Container,Empty 0 ML IVCONT (10:25)
--- NOTE | 2021-09-28 11:46 | PM.PNCARD ---
Subjective Subjective Date of Service: 09/28/21 Principal diagnosis: CKD, CHF/ Q. OF pNEUMONIA Interval history: Patient feeling a lot better. As per the walk the hallway without trouble. Was also able to laid down on the CardioMEMS pillow without issues like yesterday. Overall as diuresed greater than 7 L. his CardioMEMS reading is 13 at goal Review of Systems Constitutional: Reports weakness Cardiovascular: Reports chest pain, Denies lightheadedness, Denies Loss of Consciousness, Denies palpitations, Reports dyspnea on exertion and Denies orthopnea Respiratory: Reports no additional respiratory complaints and Reports dyspnea on exertion Musculoskeletal: Reports no additional musculoskeletal complaints Skin/Breast: Reports system reviewed and no additional complaints, except as docu Reports weakness Endocrine: Denies palpitations Physical Exam Vital Signs: Last Vital Signs Temp 97.1 F 09/28/21 11:38 Pulse 78 09/28/21 11:38 Resp 18 09/28/21 11:38 BP 105/56 L 09/28/21 11:38 Pulse Ox 94 09/28/21 11:38 Body Mass Index 28.6 Const General: cooperative, comfortable, alert and awake Nutritional Appearance: other (Frail) Orientation/consciousness: patient oriented x3 Neck Neck: Yes trachea midline, Yes supple and Yes no JVD Resp Effort & Inspection: normal respiratory effort Auscultation: clear to auscultation bilaterally Cardio Jugular venous distension: no JVD Rate: regular rate Rhythm: regular rhythm Heart sounds: S1 normal heart sound present, S2 normal heart sound present, no click, no gallops and no murmurs GI Auscultation: normal bowel sounds Skin General skin exam: ecchymosis Neuro General: patient oriented x3 Extrem General: Yes no clubbing, cyanosis or edema Results Labs and Meds Result diagrams: 09/17/21 06:03 09/28/21 05:42 Lab results: Laboratory Results - last 24 hr 09/27/21 09/27/21 09/27/21 12:38 15:07 19:31 Sodium Potassium 4.2 D Chloride Carbon Dioxide Anion Gap BUN Creatinine Estim Creat Clear Calc Estimated GFR POC Glucose 200 H 204 H Random Glucose Calcium 09/28/21 09/28/21 05:42 07:05 Sodium 139 Potassium 3.3 D Chloride 90 L Carbon Dioxide 34 H Anion Gap 18 BUN 92 H* Creatinine 2.95 H Estim Creat Clear Calc 19.7 Estimated GFR 21 POC Glucose 142 H Random Glucose 143 H Calcium 8.9 Progress Note: A&P Assessment and plan (1) Acute on chronic diastolic (congestive) heart failure: Status: Acute Assessment and Plan: Patient with extremely to treat heart failure preserved ejection fraction with diuretic resistance and advanced kidney dysfunction. Today appears to be much more comfortable with much better fluid status and at goal pulmonary artery diastolic pressure less than 14. Switch to p.o. Bumex 4 mg b.i.d.. High likelihood of recurrent hospitalization. Need to evaluate for other etiologies such as amyloidosis. Will discuss with his primary tomography technologist. Blood pressure is optimal. Discussed with him about discharge planning about going to rehab facility. He prefers to go home. Set up for home physical therapy. Plan for discharge tomorrow if the readings are acceptable limits. Fall Risk Details Current Medications: Current Medications Acetaminophen (Acetaminophen 325 Mg Tablet) 650 mg PO Q6H PRN PRN Reason: Pain, Mild (Pain Scale 1-3) Last Admin: 09/26/21 16:03 Dose: 650 mg Documented by: Albuterol/Ipratropium (Albuterol/Iprat 2.5/0.5mg 3 Ml Ampul.Neb) 3 ml INHALE Q4H PRN PRN Reason: Shortness of Breath/Wheezing Last Admin: 09/25/21 21:13 Dose: 3 ml Documented by: Amiodarone HCl (Amiodarone Hcl 200 Mg Tablet) 200 mg PO DAILY [facility] Last Admin: 09/28/21 07:57 Dose: 200 mg Documented by: Apixaban (Apixaban 5 Mg Tablet) 5 mg PO BID [facility] Last Admin: 09/28/21 07:57 Dose: 5 mg Documented by: Atorvastatin Calcium (Atorvastatin Calcium 40 Mg Tablet) 40 mg PO BEDTIME [facility] Last Admin: 09/27/21 19:55 Dose: 40 mg Documented by: Dextrose (Dextrose 50 % 25 Gm/50 Ml Vial) 25 gm IVPUSH Q15M PRN; Protocol PRN Reason: per Hypoglycemia Standing Ord. Glucose (Glucose Gel 15 Gm Gel..Gram.) 15 gm PO Q15M PRN; Protocol PRN Reason: per Hypoglycemia Standing Ord. Guaifenesin/Codeine Phosphate (Guaifen/Codeine Sf 200/20/10ml 10 Ml Liquid) 5 ml PO Q6H [facility] Last Admin: 09/28/21 07:58 Dose: 5 ml Documented by: Bumetanide 25 mg/ IV (Miscellaneous Supplies) 100 mls @ 2 mls/hr IVCONT .Q24H [facility] Last Admin: 09/28/21 10:25 Dose: 0.5 mg/hr, 2 mls/hr Documented by: Insulin Human Lispro (Insulin Lispro 100 Unit/Ml 3 Ml Vial) 0 unit SUBCUT QIDACHS [facility]; Protocol Last Admin: 09/28/21 07:19 Dose: Not Given Documented by: Magnesium Hydroxide (Milk Of Magnesia 30 Ml Oral.Susp) 30 ml PO DAILY PRN PRN Reason: Constipation Last Admin: 09/27/21 18:30 Dose: 30 ml Documented by: Melatonin (Melatonin 3 Mg Tablet) 6 mg PO BEDTIME PRN PRN Reason: Insomnia Last Admin: 09/27/21 21:15 Dose: 6 mg Documented by: Pharmacy Consult (Consult Rx Perform Med Rec) 1 each MISCELLANE ONCE PRN PRN Reason: Consult order Pharmacy Consult (Consult Rx Perform Med Rec) 1 each MISCELLANE ONCE PRN PRN Reason: Consult order Senna (Sennosides 8.6 Mg Tablet) 17.2 mg PO BEDTIME PRN PRN Reason: Constipation Last Admin: 09/27/21 21:15 Dose: 17.2 mg Documented by: Sodium Chloride (0.9 % Sodium Chloride Flush 3 Ml Syringe) [facility] Last Admin: 09/28/21 07:57 Dose: 3 ml Documented by: Time Spent With Patient Time: Total time spent is greater than 50% in coordination of care (as documented) at patient's floor/unit and/or counseling patient: Time with patient: 25 - 35 minutes Progress Note: Quality Stroke Does the patient have a stroke diagnosis?: No Procedures Date of Service Date of Service: 09/28/21
[2021-09-28] MEDS: Insulin Lispro 100 UNIT/ML 3 ML VIAL SUBCUT ×3 (11:50→21:43)
[2021-09-28 12:05] LABS: Glucose, Whole Blood 268 mg/dL (60-115)
--- NOTE | 2021-09-28 13:59 | PM.PNNEP ---
Subjective Subjective Date of Service: 09/28/21 Principal diagnosis: CKD, CHF/ Q. OF pNEUMONIA Interval history: Events noted. All recent data reviewed Physical Exam Vital Signs: Vital Signs: Last Vital Signs Temp 97.1 F 09/28/21 11:38 Pulse 78 09/28/21 11:38 Resp 18 09/28/21 11:38 BP 105/56 L 09/28/21 11:38 Pulse Ox 94 09/28/21 11:38 Body Mass Index 28.6 Const: General: no acute distress Orientation/consciousness: patient oriented x3 HENMT: Head: Yes normocephalic Eyes: EOM: EOMs intact bilaterally Neck: Neck: Yes supple Resp: Auscultation: diminished lung sounds Cardio: Rate: regular rate GI: Palpation (GI): Soft to palpation Neuro: General: patient oriented x3 and moves all extremities Objective Data Labs CBC & Chem 7: 09/17/21 06:03 09/28/21 05:42 Labs: Laboratory Results - last 24 hr 09/27/21 09/27/21 09/28/21 15:07 19:31 05:42 Sodium 139 Potassium 3.3 D Chloride 90 L Carbon Dioxide 34 H Anion Gap 18 BUN 92 H* Creatinine 2.95 H Estim Creat Clear Calc 19.7 Estimated GFR 21 POC Glucose 200 H 204 H Random Glucose 143 H Calcium 8.9 09/28/21 09/28/21 07:05 11:41 Sodium Potassium Chloride Carbon Dioxide Anion Gap BUN Creatinine Estim Creat Clear Calc Estimated GFR POC Glucose 142 H 268 H Random Glucose Calcium Microbiology Microbiology Results: Microbiology 09/16/21 21:44 Blood - Venous Blood Culture - Final No growth after 5 days. 09/16/21 21:44 Blood - Venous Blood Culture - Final No growth after 5 days. Procedures Date of Service Date of Service: 09/28/21 Assessment & Plan Assessment and plan (1) Acute kidney injury superimposed on CKD: Status: Acute Assessment and Plan: Has advanced CKD due to DM/HTN Baseline Scr 2.5-3 mg/dl Renal functions stable minimal proteinuria with normal renal US Needs to keep K over 4 Switched to PO Bumex Continue rest of current supportive care ?D/C home tomorrow Time Spent With Patient Time: Total time spent is greater than 50% in coordination of care (as documented) at patient's floor/unit and/or counseling patient: Progress Note: Quality Stroke Does the patient have a stroke diagnosis?: No
[2021-09-28] MEDS: Acetaminophen 325 MG TABLET 650 MG PO ×2 (14:58→21:47)
[2021-09-28 17:09] LABS: Glucose, Whole Blood 400 mg/dL (60-115)
[2021-09-28] MEDS: Bumetanide 1 MG TABLET 4 MG PO (17:15)
[2021-09-28 19:45] LABS: Glucose, Whole Blood 293 mg/dL (60-115)
[2021-09-28] MEDS: Atorvastatin Calcium 40 MG TABLET PO (21:43)
[2021-09-29] VITALS (8 sets, daily range): BP systolic 100–119; BP diastolic 61–67; PULSE 92–101; RESP 17–20; TEMP 36.1–37.2; O2SAT 94–100
--- NOTE | 2021-09-29 | ECG_ITS ---
Test Reason : JUNCTIONAL RHYTHM Blood Pressure : / mmHG Vent. Rate : 100 BPM Atrial Rate : 075 BPM P-R Int : 000 ms QRS Dur : 112 ms QT Int : 384 ms P-R-T Axes : 000 245 085 degrees QTc Int : 495 ms Accelerated Junctional rhythm Right superior axis deviation Low voltage QRS Pulmonary disease pattern Nonspecific T wave abnormality Lateral leads Intra-ventricular conduction delay Abnormal ECG When compared with ECG of 16-SEP-2021 18:14, No significant changes seen Referred By: Alyssa Matos Electronically Signed By:SARAH HORTON MD
[2021-09-29 07:04] LABS: B Type Natriuretic Peptide 1960 pg/mL (<100)
[2021-09-29 07:04] LABS: Glucose, Whole Blood 147 mg/dL (60-115)
[2021-09-29 07:36] LABS: Anion Gap 17 (12-20); Blood Urea Nitrogen 100 mg/dL (9-16); Calcium 8.9 mg/dL (8.4-10.2); Carbon Dioxide 34 mmol/L (22-29); Chloride 88 mmol/L (96-108); Creatinine Clr Calc Pharmacy 17.3; Estimated Glomerular Filt Rate 18; Glucose Random 145 mg/dL (60-115); Potassium 3.9 mmol/L (3.3-5.1); Sodium 135 mmol/L (135-145)
--- NOTE | 2021-09-29 09:01 | PM.PNNEP ---
Subjective Subjective Date of Service: 09/30/21 Principal diagnosis: CKD, CHF/ Q. OF pNEUMONIA Interval history: Events noted. All recent data reviewed Physical Exam Vital Signs: Vital Signs: Last Vital Signs Temp 97 F 09/29/21 06:59 Pulse 95 09/29/21 06:59 Resp 20 09/29/21 06:59 BP 115/65 09/29/21 06:59 Pulse Ox 95 09/29/21 06:59 Body Mass Index 28.6 Const: General: cooperative, comfortable, no acute distress, alert and awake Orientation/consciousness: patient oriented x3 Eyes: EOM: EOMs intact bilaterally Neck: Neck: Yes normal visual inspection and Yes supple Resp: Other: Rales noted in each lower lobe Effort & Inspection: normal respiratory effort, able to speak in complete sentences and not labored Auscultation: no rhonchi, no wheezes and diminished lung sounds Cardio: Jugular venous distension: no JVD Palpation: normal PMI Heart sounds: no rubs GI: Other: Rounded, nontender Palpation (GI): Soft to palpation Neuro: General: patient oriented x3 and moves all extremities Objective Data Labs CBC & Chem 7: 09/17/21 06:03 09/30/21 08:56 Labs: Laboratory Results - last 24 hr 09/28/21 09/28/21 09/28/21 11:41 17:05 19:42 Sodium Potassium Chloride Carbon Dioxide Anion Gap BUN Creatinine Estim Creat Clear Calc Estimated GFR POC Glucose 268 H 400 H* 293 H Random Glucose Calcium B-Natriuretic Peptide 09/29/21 09/29/21 09/29/21 06:18 06:18 07:00 Sodium 135 Potassium 3.9 Chloride 88 L Carbon Dioxide 34 H Anion Gap 17 BUN 100 H* Creatinine 3.35 H Estim Creat Clear Calc 17.3 Estimated GFR 18 POC Glucose 147 H Random Glucose 145 H Calcium 8.9 B-Natriuretic Peptide 1960 H Microbiology Microbiology Results: Microbiology 09/16/21 21:44 Blood - Venous Blood Culture - Final No growth after 5 days. 09/16/21 21:44 Blood - Venous Blood Culture - Final No growth after 5 days. Procedures Date of Service Date of Service: 09/29/21 Assessment & Plan Assessment and plan (1) Acute kidney injury superimposed on CKD: Status: Acute Assessment and Plan: Has advanced CKD due to DM/HTN Baseline Scr 2.5-3 mg/dl Renal functions is worse along with alkalosis ~due to hypoperfusion from hypotension and aggressive diuresis. Lost > 8 L thus far Minimal proteinuria with normal renal US Needs to keep K over 4 May need to decrease Bumex Avoid hypotension Shall follow along Time Spent With Patient Time: Total time spent is greater than 50% in coordination of care (as documented) at patient's floor/unit and/or counseling patient: Time with patient: 15 - 24 minutes Progress Note: Quality Stroke Does the patient have a stroke diagnosis?: No
[2021-09-29] MEDS: 0.9 % Sodium Chloride Flush 3 ML SYRINGE IVFLUSH ×2 (09:58→19:24)
[2021-09-29] MEDS: guaiFEN/Codeine SF 200/20/10ML 10 ML LIQUID 5 ML PO ×2 (09:59→19:23)
[2021-09-29] MEDS: Potassium Chloride Packet 20 MEQ PACKET PO (09:59)
[2021-09-29] MEDS: Apixaban 5 MG TABLET PO ×2 (09:59→19:23)
[2021-09-29] MEDS: Amiodarone HCL 200 MG TABLET PO (09:59)
[2021-09-29] MEDS: Bumetanide 1 MG TABLET 4 MG PO ×2 (10:02→16:42)
[2021-09-29 11:20] LABS: Glucose, Whole Blood 269 mg/dL (60-115)
--- NOTE | 2021-09-29 11:21 | MHC.CM.PN ---
Per ROUNDS discussion, Patient is not yet medically cleared for dc (EKG needed and Pulmonary pressure still high). Home is the goal for dc and CM will follow for possible need to adjust the dc plan.
--- NOTE | 2021-09-29 11:25 | PM.PNCARD ---
Subjective Subjective Date of Service: 09/29/21 Principal diagnosis: CKD, CHF/ Q. OF pNEUMONIA Interval history: States that he is going OK. No new complaints. Review of Systems Review of Systems Yes all other systems are reviewed and are negative Cardiovascular: Reports as per HPI, Reports no additional cardiovascular complaints, Denies acrocyanosis, Denies cool extremities, Denies painful fingertips, Denies chest pain, Denies chest pain at rest, Denies diaphoresis, Denies syncope, Denies irregular heart rhythm, Denies claudication, Denies leg edema, Denies lightheadedness, Denies palpitations and Denies dyspnea Respiratory: Denies dyspnea Denies syncope Endocrine: Denies palpitations Physical Exam Vital Signs: Last Vital Signs Temp 97 F 09/29/21 11:12 Pulse 101 H 09/29/21 11:12 Resp 19 09/29/21 11:12 BP 119/66 09/29/21 11:12 Pulse Ox 94 09/29/21 11:12 Body Mass Index 28.6 Const General: cooperative and no acute distress [facility] Other: Unremarkable Neck Neck: Yes normal visual inspection Chest Chest palpation & inspection: normal inspection of the chest Resp Auscultation: clear to auscultation bilaterally, no crackles and no wheezes Cardio Jugular venous distension: no JVD Palpation: normal PMI Heart sounds: S1 normal heart sound present, S2 normal heart sound present, no gallops, no murmurs and no rubs GI Palpation (GI): Soft to palpation Back/Spine/Pelvis Other: unremarkable Skin General skin exam: no rashes or lesions noted Neuro Cranial nerves: Yes Other cranial nerve findings present Extrem General: Yes no clubbing, cyanosis or edema Psych Mental Status: other Results Labs and Meds Result diagrams: 09/17/21 06:03 09/29/21 06:18 Lab results: Laboratory Results - last 24 hr 09/28/21 09/28/21 09/28/21 11:41 17:05 19:42 Sodium Potassium Chloride Carbon Dioxide Anion Gap BUN Creatinine Estim Creat Clear Calc Estimated GFR POC Glucose 268 H 400 H* 293 H Random Glucose Calcium B-Natriuretic Peptide 09/29/21 09/29/21 09/29/21 06:18 06:18 07:00 Sodium 135 Potassium 3.9 Chloride 88 L Carbon Dioxide 34 H Anion Gap 17 BUN 100 H* Creatinine 3.35 H Estim Creat Clear Calc 17.3 Estimated GFR 18 POC Glucose 147 H Random Glucose 145 H Calcium 8.9 B-Natriuretic Peptide 1960 H 09/29/21 11:12 Sodium Potassium Chloride Carbon Dioxide Anion Gap BUN Creatinine Estim Creat Clear Calc Estimated GFR POC Glucose 269 H Random Glucose Calcium B-Natriuretic Peptide Progress Note: A&P Assessment and plan (1) Acute on chronic diastolic (congestive) heart failure: Status: Acute (2) PAF (paroxysmal atrial fibrillation): Status: Acute (3) CKD (chronic kidney disease) stage 4, GFR 15-29 ml/min: Status: Acute Assessment and Plan: CardioMEMS reading today show PA diastolic of 17mmHg. This seems higher than goal. Trend last few days have been 13, 16, 15, 14. Prior to admission, he was on Torsemide. Now, he is on Oral Bumex. Clinically, he seems compensated, but high likelihood of readmissions. May start discharge planning; final diuretic regime to be decided.Will discuss with Dona Diez, who monitors his outpt diuretic regime. Fall Risk Details Current Medications: Current Medications Acetaminophen (Acetaminophen 325 Mg Tablet) 650 mg PO Q6H PRN PRN Reason: Pain, Mild (Pain Scale 1-3) Last Admin: 09/28/21 21:47 Dose: 650 mg Documented by: Albuterol/Ipratropium (Albuterol/Iprat 2.5/0.5mg 3 Ml Ampul.Neb) 3 ml INHALE Q4H PRN PRN Reason: Shortness of Breath/Wheezing Last Admin: 09/25/21 21:13 Dose: 3 ml Documented by: Amiodarone HCl (Amiodarone Hcl 200 Mg Tablet) 200 mg PO DAILY [facility] Last Admin: 09/29/21 09:59 Dose: 200 mg Documented by: Apixaban (Apixaban 5 Mg Tablet) 5 mg PO BID [facility] Last Admin: 09/29/21 09:59 Dose: 5 mg Documented by: Atorvastatin Calcium (Atorvastatin Calcium 40 Mg Tablet) 40 mg PO BEDTIME [facility] Last Admin: 09/28/21 21:43 Dose: 40 mg Documented by: Bumetanide (Bumetanide 1 Mg Tablet) 4 mg PO BID@0800,1700 [facility]; Protocol Last Admin: 09/29/21 10:02 Dose: 4 mg Documented by: Dextrose (Dextrose 50 % 25 Gm/50 Ml Vial) 25 gm IVPUSH Q15M PRN; Protocol PRN Reason: per Hypoglycemia Standing Ord. Glucose (Glucose Gel 15 Gm Gel..Gram.) 15 gm PO Q15M PRN; Protocol PRN Reason: per Hypoglycemia Standing Ord. Guaifenesin/Codeine Phosphate (Guaifen/Codeine Sf 200/20/10ml 10 Ml Liquid) 5 ml PO Q6H [facility] Last Admin: 09/29/21 09:59 Dose: 5 ml Documented by: Insulin Human Lispro (Insulin Lispro 100 Unit/Ml 3 Ml Vial) 0 unit SUBCUT QIDACHS [facility]; Protocol Last Admin: 09/29/21 08:48 Dose: Not Given Documented by: Magnesium Hydroxide (Milk Of Magnesia 30 Ml Oral.Susp) 30 ml PO DAILY PRN PRN Reason: Constipation Last Admin: 09/27/21 18:30 Dose: 30 ml Documented by: Melatonin (Melatonin 3 Mg Tablet) 6 mg PO BEDTIME PRN PRN Reason: Insomnia Last Admin: 09/27/21 21:15 Dose: 6 mg Documented by: Pharmacy Consult (Consult Rx Perform Med Rec) 1 each MISCELLANE ONCE PRN PRN Reason: Consult order Pharmacy Consult (Consult Rx Perform Med Rec) 1 each MISCELLANE ONCE PRN PRN Reason: Consult order Senna (Sennosides 8.6 Mg Tablet) 17.2 mg PO BEDTIME PRN PRN Reason: Constipation Last Admin: 09/27/21 21:15 Dose: 17.2 mg Documented by: Sodium Chloride (0.9 % Sodium Chloride Flush 3 Ml Syringe) 3 ml [facility] Last Admin: 09/29/21 09:58 Dose: 3 ml Documented by: Time Spent With Patient Time: Total time spent is greater than 50% in coordination of care (as documented) at patient's floor/unit and/or counseling patient: Time with patient: less than 15 minutes Progress Note: Quality Stroke Does the patient have a stroke diagnosis?: No Procedures Date of Service Date of Service: 09/29/21
[2021-09-29] MEDS: Insulin Lispro 100 UNIT/ML 3 ML VIAL SUBCUT ×4 (11:45→19:24)
[2021-09-29] MEDS: Pregabalin 50 MG CAPSULE PO ×2 (13:24→19:24)
--- NOTE | 2021-09-29 13:27 | W.MHC.F2F ---
Service Date Service Date: 09/29/21 Encounter Date of encounter: 09/29/21 Encounter: CHF exacerbation, diabetes Reasons for Services Reason for shelter: CV/CP assess and/or care, diabetic teaching, monitoring of unstable blood sugar, medication management, medication treatment and teach disease management Reason for physical therapy: home safety and mobility, therapeutic exercises, restore joint function, gait/transfer training, assess need for DME, ADL training, energy conservation and other MD Overseeing Care: Miriam Gray Homebound: Leaving the home is medically contraindicated at this time without the asist of a device and/or another person due th the listed conditions above and below. Homebound supporting statement: Patient has CHF exacerbation diabetes and multiple comorbidities , also generally weak hospitalization wound also need help to go to appointments Certification: Based on the above findings, I certify that this patient is confined to the home and needs intermittent shelter care, physical therapy and/or speech therapy, or continues to need occupational therapy. The patient is under my care, and I have initiated the establishment of the plan of care. The patient will be followed by a physician who will periodically review the plan of care.
--- NOTE | 2021-09-29 13:31 | MHC.CM.PN ---
Patient has been medically cleared for dc to home today with [facility]. Marcelina from [facility] @ [phone] has approved a referral to NA, who has been made aware of today's dc. HARIKA, with the assist of [facility], has addressed IMM at bedside, with Patient and original has been given to him and a copy has been placed on the chart. Patient is aware of and in agreement with the dc plan.Patient's will provide transportation to home.
--- NOTE | 2021-09-29 13:32 | PM.DS ---
DS: Providers Provider Date of Service: 09/29/21 Date of admission: 09/16/21 22:12 Primary care physician: Miriam Gray MD Consults: 09/16/21 22:19 Consult to Cardiology Routine Consulting Provider: Dax Novoa Reason for consultation: chf Consult to Infectious Diseases Routine Consulting Provider: Ledy York Reason for consultation: multifocal pna Consult to Nephrology Routine Consulting Provider: Alea Kulkarni Reason for consultation: mary kate on ckd 09/19/21 10:02 Consult to Pulmonology Routine Consulting Provider: Rajan Goldman Reason for consultation: pulmonary infiltrates ? chf vs PNA vs amio toxicity 09/25/21 10:48 Consult to Pulmonology Routine Consulting Provider: Tj Mullen Reason for consultation: ACUTE HYPOXEMIC RESPIRATORY FAILURE SECONDARY TO PROBABLE PULM HTN Has provider been notified: No DS: Diagnosis Discharge Diagnosis (1) Acute on chronic diastolic (congestive) heart failure: Status: Acute (2) PAF (paroxysmal atrial fibrillation): Status: Acute (3) CKD (chronic kidney disease) stage 4, GFR 15-29 ml/min: Status: Acute DS: Summary Hospital Course Hospital Course: 76-year-old male with a past medical history of hypertension, hyperlipidemia, diabetes, CAD, CHF, history of COVID-19 infection, obesity, obstructive sleep apnea, recent admission to the hospital for NSTEMI status post stress test; history of AFib on Eliquis, chronic kidney disease presented to the hospital with a chief complaint of shortness of breath. Patient denies any chest pain palpitations lightheadedness or dizziness. Denies any GI or symptoms. Review of all other systems is negative except mentioned above. Hospital course: Patient came to the hospital due to CHF exacerbation, Initially was on antibiotics for suspicion of pneumonia-but subsequently was switched to IV Lasix since etiology of dyspnea was thought to be CHF related- patient was started on IV diuretics the response initially was slow but patient almost range 7-8 L. His pulmonary pressures are fluctuating between 15-17 range, seen by Cardiology today-recommended to switch to p.o. Bumex since patient seems to be compensated CHF, patient is risk for readmissions . Cardiology may arrange their outpatient appointment. Nephro also saw the patient because of CKD: Renal function is slightly on the dry side than usual, recommended to adjust Bumex to 3 mg p.o. b.i.d. as well as repeat renal function and electrolytes in 1 week outpatient with PCP, Nephro may arrange their own appointment. In addition pulmonary workup including CT scan and pulmonary perfusion study was done: Perfusion study is normal, CT scan reviewed by Pulmonary and infectious disease : Seems in the previous imaging seems to be significantly improved. In addition his alveolar densities were thought to be nonspecific,than pneumonia. Pulmonary recommended deep breathing exercises, Patient is not hypoxic denies any shortness of breath. Patient with lead repeat chest imaging in 3-4 weeks time to see resolution of chest CT findings or earlier if he becomes symptomtaic . Consider outpatient pulmonary evaluation as per PCP. Diabetes claudio: Fingersticks are fluctuating, adjusted home insulin regimen-monitor fingersticks at home and further adjustment outpatient as per PCP. He possibly has diabetic neuropathy, has has on and off foot pains: Will add pregabalin. Above management discussed with the patient with supervisor intermediates in including chf education given detail length he understand and in agreement with the above plan.time spent 50 minutes and 50% time spent on counseling. Significant findings: As above. Procedures performed: None. Treatment and response: As above. Complications: None. Time Spent with Patient Time attestation: Total time spent providing and/or coordinating discharge services: Discharge coordination time: Greater than 30 minutes Quality: Stroke Does the patient have a stroke diagnosis?: No Physical Exam Vital Signs: Vital Signs: Last Vital Signs Temp 97 F 09/29/21 11:12 Pulse 101 H 09/29/21 11:12 Resp 19 09/29/21 11:12 BP 119/66 09/29/21 11:12 Pulse Ox 94 09/29/21 11:12 Body Mass Index 28.6 Appearance: Alert.? Oriented X3.? not in distress.? Eyes: Pupils equal, round and reactive to light.? Sclera nonicteric.? ENT: Pharynx normal.? Moist mucous membranes. cvs: rrr, [id number] res: clear to auscultation ,no rhonchii or wheezing abd: no rebound or guarding ,nt, bs present. ext pulses present , no cyanosis , no edema neuro: axo3 , nonfocal. DS: Data Data Completed and Pending Completed studies during hospitalization [Text1]: Procedures Bahai of Cardiac Rhythm, Single (05/01/21) Labs on day of discharge: Laboratory Results - last 24 hr 09/28/21 09/28/21 09/29/21 17:05 19:42 06:18 Sodium 135 Potassium 3.9 Chloride 88 L Carbon Dioxide 34 H Anion Gap 17 BUN 100 H* Creatinine 3.35 H Estim Creat Clear Calc 17.3 Estimated GFR 18 POC Glucose 400 H* 293 H Random Glucose 145 H Calcium 8.9 B-Natriuretic Peptide 09/29/21 09/29/21 09/29/21 06:18 07:00 11:12 Sodium Potassium Chloride Carbon Dioxide Anion Gap BUN Creatinine Estim Creat Clear Calc Estimated GFR POC Glucose 147 H 269 H Random Glucose Calcium B-Natriuretic Peptide 1960 H Discharge Plan Discharge Patient Disposition: Home Health Service Discharge Diagnosis: chf , ckd Referrals: Kenneth ELIAS [Outside] - 1 Week Miriam Gray MD [Primary Care Provider] - 1 Week Discharge Medications: New bumetanide 1 mg tablet 3 mg PO BID Qty: 180 RF: 0 pregabalin 50 mg capsule 50 mg PO DAILY Qty: 30 RF: 0 Continued (DME) pen needle, diabetic [UltiCare Pen Needle] 31 gauge x 5/16 needle subcut 5XD Qty: 200 RF: 11 atorvastatin 40 mg tablet 40 mg PO BEDTIME RF: 0 amiodarone 200 mg Tablet 200 mg PO DAILY@1200 RF: 0 omeprazole 20 mg Capsule,Delayed Release(Dr/Ec) 20 mg PO DAILY RF: 0 Pulmicort Flexhaler 90 mcg/actuation aerosol powdr breath activated 2 puff inhalation BID RF: 0 cholecalciferol (vitamin D3) [Vitamin D3] 50 mcg (2,000 unit) Capsule 50 mcg PO DAILY@1200 RF: 0 Eliquis 5 mg Tablet 5 mg PO BID RF: 0 Trulicity 1.5 mg/0.5 mL pen injector 1.5 mg subcut WE RF: 0 bicalutamide 50 mg Tablet 50 mg PO DAILY Qty: 30 RF: 0 hydralazine 25 mg tablet 1 tab PO TID RF: 0 (DME) lancets [TRUEplus Lancets] 33 gauge misc MISCELLANEOUS QID RF: 0 melatonin 3 mg tablet 1 tab PO BEDTIME PRN (Reason: insomnia) RF: 0 docusate sodium 100 mg capsule 1 cap PO BID PRN (Reason: Constipation) RF: 0 potassium chloride 20 mEq tablet,ER particles/crystals 2 tab PO DAILY@1200 RF: 0 (DME) blood sugar diagnostic Strip See Rx Instructions ea Not Applicable QID Qty: 10 RF: 0 Changed Toujeo SoloStar U-300 Insulin 300 unit/mL (1.5 mL) insulin pen 15 unit subcut BEDTIME Qty: 0 RF: 0 insulin lispro [Humalog KwikPen Insulin] 100 unit/mL insulin pen 8 unit subcut TID Qty: 0 RF: 0 Discontinued torsemide 20 mg tablet 20 mg PO DAILY@1200 RF: 0 torsemide 20 mg tablet 40 mg PO DAILY RF: 0 furosemide 20 mg Tablet 20 mg PO DAILY PRN (Reason: Edema) RF: 0 furosemide 20 mg Tablet 40 mg PO BID RF: 0 Discharge Orders: Discharge Order (Routine); Ordered 09/29/21 Ordered By: Alyssa Matos Diet: advance to usual diet, diabetic diet, low fat, low cholesterol and low salt diet Activity on Discharge: As tolerated Stand Alone Forms: Patient Portal Discharge page Other Ambulatory Orders: Basic Metabolic Panel (Routine) Timeframe: 1 Week Facility: [facility] - Location: Laboratory Ordered By: Alyssa Matos Care Plan Goals: Patient came to the hospital due to CHF exacerbation, Initially was on antibiotics for suspicion of pneumonia-but subsequently was switched to IV Lasix since etiology of dyspnea was thought to be CHF related- patient was started on IV diuretics the response initially was slow but patient almost range 7-8 L. His pulmonary pressures are fluctuating between 15-17 range, seen by Cardiology today-recommended to switch to p.o. Bumex since patient seems to be compensated CHF, patient is risk for readmissions . Cardiology may arrange their outpatient appointment. Nephro also saw the patient because of CKD: Renal function is slightly on the dry side than usual, recommended to adjust Bumex to 3 mg p.o. b.i.d. as well as repeat renal function and electrolytes in 1 week outpatient with PCP, Nephro may arrange their own appointment. In addition pulmonary workup including CT scan and pulmonary perfusion study was done: Perfusion study is normal, CT scan reviewed by Pulmonary: Seems in the previous imaging seems to be significantly improved. In addition his alveolar densities were thought to be nonspecific,than pneumonia. Pulmonary recommended deep breathing exercises, Patient is not hypoxic denies any shortness of breath. Patient with lead repeat chest imaging in 3-4 weeks time to see resolution of chest CT findings. Consider outpatient pulmonary evaluation as per PCP. Diabetes claudio: Fingersticks are fluctuating, adjusted home insulin regimen-monitor fingersticks at home and further adjustment outpatient as per PCP. Above management discussed with the patient with supervisor intermediates in including cgf education given detail length he understand and in agreement with the above plan. Health Concerns: As above. Plan of Treatment: As above. Assessment: As above. Patient Instructions: Heart Failure (DC), Diabetes and Nutrition (DC)
[2021-09-29 16:04] LABS: Glucose, Whole Blood 423 mg/dL (60-115)
--- NOTE | 2021-09-29 16:57 | HO.PM.IMPN ---
Subjective Subjective Date of Service: 09/29/21 Interval History: Diabetes with hyperglycemia, CHF Review of Systems Short of breath seems improving Physical Exam Vital Signs: Vital Signs: Last Vital Signs Temp 98.7 F 09/29/21 16:00 Pulse 96 09/29/21 16:00 Resp 18 09/29/21 16:00 BP 103/65 09/29/21 16:00 Pulse Ox 98 09/29/21 16:00 Body Mass Index 28.6 Appearance: Alert.? Oriented X3.? not in distress.? Eyes: Pupils equal, round and reactive to light.? Sclera nonicteric.? ENT: Pharynx normal.? Moist mucous membranes. cvs: rrr, [id number]. res: clear to auscultation ,no rhonchii or wheezing abd: no rebound or guarding ,nt, bs present. ext pulses present , no cyanosis ,trace edema neuro: axo3 , nonfocal. Objective Data Active Medications Acetaminophen (Acetaminophen 325 Mg Tablet) 650 mg PO Q6H PRN PRN Reason: Pain, Mild (Pain Scale 1-3) Last Admin: 09/28/21 21:47 Dose: 650 mg Documented by: ALETHA Albuterol/Ipratropium (Albuterol/Iprat 2.5/0.5mg 3 Ml Ampul.Neb) 3 ml INHALE Q4H PRN PRN Reason: Shortness of Breath/Wheezing Last Admin: 09/25/21 21:13 Dose: 3 ml Documented by: CHRIS Amiodarone HCl (Amiodarone Hcl 200 Mg Tablet) 200 mg PO DAILY [facility] Last Admin: 09/29/21 09:59 Dose: 200 mg Documented by: EVETTE Apixaban (Apixaban 5 Mg Tablet) 5 mg PO BID [facility] Last Admin: 09/29/21 09:59 Dose: 5 mg Documented by: EVETTE Atorvastatin Calcium (Atorvastatin Calcium 40 Mg Tablet) 40 mg PO BEDTIME [facility] Last Admin: 09/28/21 21:43 Dose: 40 mg Documented by: ALETHA Bumetanide (Bumetanide 1 Mg Tablet) 4 mg PO BID@0800,1700 [facility]; Protocol Last Admin: 09/29/21 16:42 Dose: 4 mg Documented by: EVETTE Dextrose (Dextrose 50 % 25 Gm/50 Ml Vial) 25 gm IVPUSH Q15M PRN; Protocol PRN Reason: per Hypoglycemia Standing Ord. Glucose (Glucose Gel 15 Gm Gel..Gram.) 15 gm PO Q15M PRN; Protocol PRN Reason: per Hypoglycemia Standing Ord. Guaifenesin/Codeine Phosphate (Guaifen/Codeine Sf 200/20/10ml 10 Ml Liquid) 5 ml PO Q6H [facility] Last Admin: 09/29/21 15:56 Dose: Not Given Documented by: EVETTE Non-Admin Reason: Patient Refused Insulin Human Lispro (Insulin Lispro 100 Unit/Ml 3 Ml Vial) 0 unit SUBCUT QIDACHS [facility]; Protocol Last Admin: 09/29/21 16:43 Dose: 10 unit Documented by: EVETTE Magnesium Hydroxide (Milk Of Magnesia 30 Ml Oral.Susp) 30 ml PO DAILY PRN PRN Reason: Constipation Last Admin: 09/27/21 18:30 Dose: 30 ml Documented by: FIDEL Melatonin (Melatonin 3 Mg Tablet) 6 mg PO BEDTIME PRN PRN Reason: Insomnia Last Admin: 09/27/21 21:15 Dose: 6 mg Documented by: GISELE Pharmacy Consult (Consult Rx Perform Med Rec) 1 each MISCELLANE ONCE PRN PRN Reason: Consult order Pharmacy Consult (Consult Rx Perform Med Rec) 1 each MISCELLANE ONCE PRN PRN Reason: Consult order Pregabalin (Pregabalin 50 Mg Capsule) 50 mg PO BID [facility] Last Admin: 09/29/21 13:24 Dose: 50 mg Documented by: EVETTE Senna (Sennosides 8.6 Mg Tablet) 17.2 mg PO BEDTIME PRN PRN Reason: Constipation Last Admin: 09/27/21 21:15 Dose: 17.2 mg Documented by: GISELE Sodium Chloride (0.9 % Sodium Chloride Flush 3 Ml Syringe) [facility] Last Admin: 09/29/21 09:58 Dose: 3 ml Documented by: EVETTE Labs CBC & Chem 7: 09/17/21 06:03 09/29/21 06:18 Labs: Laboratory Results - last 24 hr 09/28/21 09/28/21 09/29/21 17:05 19:42 06:18 Anion Gap 17 Estim Creat Clear Calc 17.3 Estimated GFR 18 POC Glucose 400 H* 293 H Random Glucose 145 H Calcium 8.9 B-Natriuretic Peptide 09/29/21 09/29/21 09/29/21 06:18 07:00 11:12 Anion Gap Estim Creat Clear Calc Estimated GFR POC Glucose 147 H 269 H Random Glucose Calcium B-Natriuretic Peptide 1960 H 09/29/21 15:59 Anion Gap Estim Creat Clear Calc Estimated GFR POC Glucose 423 H* Random Glucose Calcium B-Natriuretic Peptide Assessment and Plan (1) Diabetes mellitus: Status: Acute Assessment and Plan: 76-year-old male with a past medical history of hypertension, hyperlipidemia, diabetes, CAD, CHF, history of COVID-19 infection, obesity, obstructive sleep apnea, recent admission to the hospital for NSTEMI status post stress test; history of AFib on Eliquis, chronic kidney disease presented to the hospital with a chief complaint of shortness of breath.? Noted to have multifocal pneumonia on CT chest.? Admitted for further management. 1.Dyspnea due to Heart failure--clnically improving, no hypoxia, continue treatment of underlying CHF Initially was on antibiotics for suspicion of pneumonia-but subsequently was switched to IV Lasix since etiology of dyspnea was thought to be CHF related. Acute on chronic systolic heart failure-- Less short of breath last night, had 1 time coughing spell Repleted K as needed cxr , perfusion scan,hrct-reviewed with Pulmonary and cardio and ID:? Most likely CHF related. Very slowly responding heart failure persistently elevated filling pressures, actually higher than yesterday.? This is very unusual.? This sized a suggest diuretic resistance and poor response with the kidneys. d/w Continue IV bumex adjusted , added metolazone , monitor I/O, renal function, patient -7-8 liter neg( last 24hours 625 ml neg) moniter renal function and electrolytes closely cardiology following 2.Elevated troponins:? noted to be thopught likely from CKD, no chest pain. 3.Hypokalemia--from diuretics, K supplement? PO,? keep K around 4 Shoulder pain xray mild arthritis. 4.CKD 3, stable there is NO? MORTEZA, being worked up for pulmonary renal syndrome 5.Diabetes:uncontrolled : 300-400 range - continue lantus and adjusted ? Insulin sliding scale. 6.Chronic AFib:? Rate controlled.? Continue home Eliquis, continue amio cardio and pulm follwing Code status:? Full code Quality Stroke Does the patient have a stroke diagnosis?: No VTE Prior VTE?: No VTE Risk Level:: Medical - moderate - high VTE Device Contraindication: Treatment Not Indicated VTE Drug Contraindication: N/A - Med Ordered
[2021-09-29 18:14] LABS: Glucose, Whole Blood 380 mg/dL (60-115)
[2021-09-29 19:19] LABS: Glucose, Whole Blood 308 mg/dL (60-115)
[2021-09-29] MEDS: Atorvastatin Calcium 40 MG TABLET PO (19:24)
[2021-09-29] MEDS: Insulin Glargine,Hum.rec.anlog 100 UNIT/ML 10 ML VIAL 15 UNIT SUBCUT (19:24)
[2021-09-29 20:06] LABS: Glucose, Whole Blood 266 mg/dL (60-115)
[2021-09-29 22:59] LABS: Glucose, Whole Blood 77 mg/dL (60-115)
[2021-09-30 04:00] VITALS: BP 102/65; PULSE 93; RESP 18; TEMP 36.2; O2SAT 97
[2021-09-30 04:07] LABS: Glucose, Whole Blood 113 mg/dL (60-115)
[2021-09-30 07:23] VITALS: BP 105/63; PULSE 93; RESP 18; TEMP 36.4; O2SAT 98
[2021-09-30] MEDS: Insulin Lispro 100 UNIT/ML 3 ML VIAL SUBCUT ×2 (07:27→11:56)
[2021-09-30 07:38] LABS: Glucose, Whole Blood 127 mg/dL (60-115)
[2021-09-30 09:18] VITALS: BP 105/63; PULSE 93; O2SAT 98
[2021-09-30] MEDS: 0.9 % Sodium Chloride Flush 3 ML SYRINGE IVFLUSH (09:26)
[2021-09-30 09:28] LABS: Anion Gap 15 (12-20); Blood Urea Nitrogen 104 mg/dL (9-16); Calcium 8.7 mg/dL (8.4-10.2); Carbon Dioxide 37 mmol/L (22-29); Chloride 87 mmol/L (96-108); Creatinine Clr Calc Pharmacy 17.2; Estimated Glomerular Filt Rate 18; Glucose Random 124 mg/dL (60-115); Potassium 3.5 mmol/L (3.3-5.1); Sodium 135 mmol/L (135-145)
[2021-09-30] MEDS: guaiFEN/Codeine SF 200/20/10ML 10 ML LIQUID 5 ML PO (09:28)
[2021-09-30] MEDS: Apixaban 5 MG TABLET PO (09:28)
[2021-09-30] MEDS: Bumetanide 1 MG TABLET 3 MG PO (09:28)
[2021-09-30] MEDS: Pregabalin 50 MG CAPSULE PO (09:28)
[2021-09-30 09:30] VITALS: BP 105/63; PULSE 93
[2021-09-30] MEDS: Amiodarone HCL 200 MG TABLET PO (09:30)
--- NOTE | 2021-09-30 10:06 | PM.PNNEP ---
Subjective Subjective Date of Service: 10/01/21 Principal diagnosis: CKD, CHF/ Q. OF pNEUMONIA Interval history: Diabetes with hyperglycemia, CHF Physical Exam Vital Signs: Vital Signs: Last Vital Signs Temp 97.6 F 09/30/21 07:23 Pulse 93 09/30/21 09:30 Resp 18 09/30/21 07:23 BP 105/63 09/30/21 09:30 Pulse Ox 98 09/30/21 09:18 Body Mass Index 28.6 Const: General: cooperative, comfortable, no acute distress, alert and awake Orientation/consciousness: patient oriented x3 Eyes: EOM: EOMs intact bilaterally Neck: Neck: Yes normal visual inspection and Yes supple Resp: Other: Rales noted in each lower lobe Effort & Inspection: normal respiratory effort, able to speak in complete sentences and not labored Auscultation: no rhonchi and diminished lung sounds Cardio: Jugular venous distension: no JVD Palpation: normal PMI Heart sounds: no rubs GI: Other: Rounded, nontender Palpation (GI): Soft to palpation Neuro: General: patient oriented x3 and moves all extremities Objective Data Labs CBC & Chem 7: 09/17/21 06:03 09/30/21 08:56 Labs: Laboratory Results - last 24 hr 09/29/21 09/29/21 09/29/21 11:12 15:59 18:10 Sodium Potassium Chloride Carbon Dioxide Anion Gap BUN Creatinine Estim Creat Clear Calc Estimated GFR POC Glucose 269 H 423 H* 380 H* Random Glucose Calcium 09/29/21 09/29/21 09/29/21 19:16 20:02 22:55 Sodium Potassium Chloride Carbon Dioxide Anion Gap BUN Creatinine Estim Creat Clear Calc Estimated GFR POC Glucose 308 H 266 H 77 Random Glucose Calcium 09/30/21 09/30/21 09/30/21 04:04 07:25 08:56 Sodium 135 Potassium 3.5 Chloride 87 L Carbon Dioxide 37 H Anion Gap 15 BUN 104 H* Creatinine 3.38 H Estim Creat Clear Calc 17.2 Estimated GFR 18 POC Glucose 113 127 H Random Glucose 124 H Calcium 8.7 Microbiology Microbiology Results: Microbiology 09/16/21 21:44 Blood - Venous Blood Culture - Final No growth after 5 days. 09/16/21 21:44 Blood - Venous Blood Culture - Final No growth after 5 days. Procedures Date of Service Date of Service: 09/30/21 Assessment & Plan Assessment and plan (1) Acute kidney injury superimposed on CKD: Status: Acute Assessment and Plan: Has advanced CKD due to DM/HTN Baseline Scr 2.5-3 mg/dl Renal functions is worse along with alkalosis ~due to hypoperfusion from hypotension and aggressive diuresis. Lost > 8 L thus far Minimal proteinuria with normal renal US Needs to keep K over 4 Agree with decreasing Bumex 3 mg BID Avoid hypotension No indication for dialysis Shall follow along as needed Time Spent With Patient Time: Total time spent is greater than 50% in coordination of care (as documented) at patient's floor/unit and/or counseling patient: Time with patient: 15 - 24 minutes Progress Note: Quality Stroke Does the patient have a stroke diagnosis?: No
--- NOTE | 2021-09-30 10:53 | PM.PNCARD ---
Subjective Subjective Date of Service: 09/30/21 Principal diagnosis: CKD, CHF/ Q. OF pNEUMONIA Interval history: Feels well. Denies any shortness of breath or other complaints. Ambulating in hallway. Review of Systems Review of Systems Yes all other systems are reviewed and are negative Cardiovascular: Reports as per HPI, Reports no additional cardiovascular complaints, Denies acrocyanosis, Denies cool extremities, Denies painful fingertips, Denies chest pain, Denies chest pain at rest, Denies diaphoresis, Denies syncope, Denies irregular heart rhythm, Denies claudication, Denies leg edema, Denies lightheadedness, Denies palpitations and Denies dyspnea Respiratory: Denies dyspnea Denies syncope Endocrine: Denies palpitations Physical Exam Vital Signs: Last Vital Signs Temp 97.6 F 09/30/21 07:23 Pulse 93 09/30/21 09:30 Resp 18 09/30/21 07:23 BP 105/63 09/30/21 09:30 Pulse Ox 98 09/30/21 09:18 Body Mass Index 28.6 Const General: cooperative and no acute distress [facility] Other: Unremarkable Neck Neck: Yes normal visual inspection Chest Chest palpation & inspection: normal inspection of the chest Resp Auscultation: clear to auscultation bilaterally, no crackles and no wheezes Cardio Jugular venous distension: no JVD Palpation: normal PMI Heart sounds: S1 normal heart sound present, S2 normal heart sound present, no gallops, no murmurs and no rubs GI Palpation (GI): Soft to palpation Back/Spine/Pelvis Other: unremarkable Skin General skin exam: no rashes or lesions noted Neuro Cranial nerves: Yes Other cranial nerve findings present Extrem General: Yes no clubbing, cyanosis or edema Psych Mental Status: other Results Labs and Meds Result diagrams: 09/17/21 06:03 09/30/21 08:56 Lab results: Laboratory Results - last 24 hr 09/29/21 09/29/21 09/29/21 11:12 15:59 18:10 Sodium Potassium Chloride Carbon Dioxide Anion Gap BUN Creatinine Estim Creat Clear Calc Estimated GFR POC Glucose 269 H 423 H* 380 H* Random Glucose Calcium 09/29/21 09/29/21 09/29/21 19:16 20:02 22:55 Sodium Potassium Chloride Carbon Dioxide Anion Gap BUN Creatinine Estim Creat Clear Calc Estimated GFR POC Glucose 308 H 266 H 77 Random Glucose Calcium 09/30/21 09/30/21 09/30/21 04:04 07:25 08:56 Sodium 135 Potassium 3.5 Chloride 87 L Carbon Dioxide 37 H Anion Gap 15 BUN 104 H* Creatinine 3.38 H Estim Creat Clear Calc 17.2 Estimated GFR 18 POC Glucose 113 127 H Random Glucose 124 H Calcium 8.7 Progress Note: A&P Assessment and plan (1) Acute on chronic diastolic (congestive) heart failure: Status: Acute (2) PAF (paroxysmal atrial fibrillation): Status: Acute (3) CKD (chronic kidney disease) stage 4, GFR 15-29 ml/min: Status: Acute Assessment and Plan: CardioMEMS reading yesterday show PA diastolic of 17mmHg. This seems higher than goal. Trend last few days have been 13, 16, 15, 14. Prior to admission, he was on Torsemide. Now, he is on Oral Bumex. Clinically, he seems compensated, but high likelihood of readmissions. May start discharge planning; will follow outpt readings and titrate diuretics. Fall Risk Details Current Medications: Current Medications Acetaminophen (Acetaminophen 325 Mg Tablet) 650 mg PO Q6H PRN PRN Reason: Pain, Mild (Pain Scale 1-3) Last Admin: 09/28/21 21:47 Dose: 650 mg Documented by: Albuterol/Ipratropium (Albuterol/Iprat 2.5/0.5mg 3 Ml Ampul.Neb) 3 ml INHALE Q4H PRN PRN Reason: Shortness of Breath/Wheezing Last Admin: 09/25/21 21:13 Dose: 3 ml Documented by: Amiodarone HCl (Amiodarone Hcl 200 Mg Tablet) 200 mg PO DAILY [facility] Last Admin: 09/30/21 09:30 Dose: 200 mg Documented by: Apixaban (Apixaban 5 Mg Tablet) 5 mg PO BID [facility] Last Admin: 09/30/21 09:28 Dose: 5 mg Documented by: Atorvastatin Calcium (Atorvastatin Calcium 40 Mg Tablet) 40 mg PO BEDTIME [facility] Last Admin: 09/29/21 19:24 Dose: 40 mg Documented by: Bumetanide (Bumetanide 1 Mg Tablet) 3 mg PO BID@0800,1700 [facility]; Protocol Last Admin: 09/30/21 09:28 Dose: 3 mg Documented by: Dextrose (Dextrose 50 % 25 Gm/50 Ml Vial) 25 gm IVPUSH Q15M PRN; Protocol PRN Reason: per Hypoglycemia Standing Ord. Glucose (Glucose Gel 15 Gm Gel..Gram.) 15 gm PO Q15M PRN; Protocol PRN Reason: per Hypoglycemia Standing Ord. Guaifenesin/Codeine Phosphate (Guaifen/Codeine Sf 200/20/10ml 10 Ml Liquid) 5 ml PO Q6H [facility] Last Admin: 09/30/21 09:28 Dose: 5 ml Documented by: Insulin Glargine (Insulin Glargine,Hum.Rec.Anlog 100 Unit/Ml 10 Ml Vial) 15 unit SUBCUT BEDTIME [facility] Last Admin: 09/29/21 19:24 Dose: 15 unit Documented by: Insulin Human Lispro (Insulin Lispro 100 Unit/Ml 3 Ml Vial) 0 unit SUBCUT QIDACHS [facility]; Protocol Last Admin: 09/30/21 07:27 Dose: 2 unit Documented by: Magnesium Hydroxide (Milk Of Magnesia 30 Ml Oral.Susp) 30 ml PO DAILY PRN PRN Reason: Constipation Last Admin: 09/27/21 18:30 Dose: 30 ml Documented by: Melatonin (Melatonin 3 Mg Tablet) 6 mg PO BEDTIME PRN PRN Reason: Insomnia Last Admin: 09/27/21 21:15 Dose: 6 mg Documented by: Pharmacy Consult (Consult Rx Perform Med Rec) 1 each MISCELLANE ONCE PRN PRN Reason: Consult order Pharmacy Consult (Consult Rx Perform Med Rec) 1 each MISCELLANE ONCE PRN PRN Reason: Consult order Pregabalin (Pregabalin 50 Mg Capsule) 50 mg PO BID [facility] Last Admin: 09/30/21 09:28 Dose: 50 mg Documented by: Senna (Sennosides 8.6 Mg Tablet) 17.2 mg PO BEDTIME PRN PRN Reason: Constipation Last Admin: 09/27/21 21:15 Dose: 17.2 mg Documented by: Sodium Chloride (0.9 % Sodium Chloride Flush 3 Ml Syringe) [facility] Last Admin: 09/30/21 09:26 Dose: 3 ml Documented by: Time Spent With Patient Time: Total time spent is greater than 50% in coordination of care (as documented) at patient's floor/unit and/or counseling patient: Time with patient: less than 15 minutes Progress Note: Quality Stroke Does the patient have a stroke diagnosis?: No Procedures Date of Service Date of Service: 09/30/21
[2021-09-30 11:07] LABS: Glucose, Whole Blood 179 mg/dL (60-115)
[2021-09-30 11:19] VITALS: BP 103/58; PULSE 97; RESP 17; TEMP 36.3; O2SAT 96
[2021-09-30 12:00] VITALS: BP 103/58; PULSE 97; RESP 17; TEMP 36.3; O2SAT 96
--- NOTE | 2021-09-30 13:35 | PM.DS ---
DS: Providers Provider Date of Service: 09/30/21 Date of admission: 09/16/21 22:12 Primary care physician: Miriam Gray MD Consults: 09/16/21 22:19 Consult to Cardiology Routine Consulting Provider: Dax Novoa Reason for consultation: chf Consult to Infectious Diseases Routine Consulting Provider: Ledy York Reason for consultation: multifocal pna Consult to Nephrology Routine Consulting Provider: Alea Kulkrani Reason for consultation: morteza on ckd 09/19/21 10:02 Consult to Pulmonology Routine Consulting Provider: Rajan Goldman Reason for consultation: pulmonary infiltrates ? chf vs PNA vs amio toxicity 09/25/21 10:48 Consult to Pulmonology Routine Consulting Provider: Tj Mullen Reason for consultation: ACUTE HYPOXEMIC RESPIRATORY FAILURE SECONDARY TO PROBABLE PULM HTN Has provider been notified: No DS: Diagnosis Discharge Diagnosis (1) Acute on chronic diastolic (congestive) heart failure: Status: Acute (2) PAF (paroxysmal atrial fibrillation): Status: Acute (3) CKD (chronic kidney disease) stage 4, GFR 15-29 ml/min: Status: Acute DS: Summary Hospital Course Hospital Course: 76-year-old male with a past medical history of hypertension, hyperlipidemia, diabetes, CAD, CHF, history of COVID-19 infection, obesity, obstructive sleep apnea, recent admission to the hospital for NSTEMI status post stress test; history of AFib on Eliquis, chronic kidney disease presented to the hospital with a chief complaint of shortness of breath. Patient denies any chest pain palpitations lightheadedness or dizziness. Denies any GI or symptoms. Review of all other systems is negative except mentioned above. Hospital course: Patient came to the hospital due to CHF exacerbation, Initially was on antibiotics for suspicion of pneumonia-but subsequently was switched to IV Lasix since etiology of dyspnea was thought to be CHF related- patient was started on IV diuretics the response initially was slow but patient almost range 7-8 L. His pulmonary pressures are fluctuating between 15-17 range, seen by Cardiology today-recommended to switch to p.o. Bumex since patient seems to be compensated CHF, patient is risk for readmissions . Discussed with cardiology. pt can be discharged on bumex 3mg PO BID. they will continue to monitor cardiomemes reading in the office and will change his diuretics accordingly. Also recommended holding tonights bumex dose given pt's worsening kidney function. Nephro also saw the patient because of MORTEZA on CKD: Renal function is slightly on the dry side than usual, recommended to adjust Bumex to 3 mg p.o. b.i.d. as well as repeat renal function and electrolytes in 1 week outpatient with PCP, Nephro may arrange their own appointment as well. In addition pulmonary workup including CT scan and pulmonary perfusion study was done: Perfusion study is normal, CT scan reviewed by Pulmonary and infectious disease : Seems in the previous imaging seems to be significantly improved. In addition his alveolar densities were thought to be nonspecific,than pneumonia. Pulmonary recommended deep breathing exercises, Patient is not hypoxic denies any shortness of breath. Patient with lead repeat chest imaging in 3-4 weeks time to see resolution of chest CT findings or earlier if he becomes symptomtaic . Consider outpatient pulmonary evaluation as per PCP. Diabetes claudio: Fingersticks are fluctuating, adjusted home insulin regimen-monitor fingersticks at home and further adjustment outpatient as per PCP. He possibly has diabetic neuropathy, has has on and off foot pains: Will add pregabalin. Above management discussed with the patient with cryptological technician in including chf education given detail length he understand and in agreement with the above plan.time spent 50 minutes and 50% time spent on counseling. Pt today complaining of sudden muscle twitching that developed in hospital. Possibly multifactorial . no neurological deficits. no neurological abnormality advised to follow with pcp. Prognosis: Has high readmission rate given his CHF and MORTEZA Significant findings: As above. Procedures performed: None. Treatment and response: As above. Complications: None. Time Spent with Patient Time attestation: Total time spent providing and/or coordinating discharge services: Discharge coordination time: Greater than 30 minutes Quality: Stroke Does the patient have a stroke diagnosis?: No Physical Exam Vital Signs: Vital Signs: Last Vital Signs Temp 97.3 F 09/30/21 12:00 Pulse 97 09/30/21 12:00 Resp 17 09/30/21 12:00 BP 103/58 L 09/30/21 12:00 Pulse Ox 96 09/30/21 12:00 Body Mass Index 28.6 Const: General: cooperative and no acute distress Orientation/consciousness: patient oriented x3 Resp: Effort & Inspection: normal respiratory effort Auscultation: clear to auscultation bilaterally Cardio: Rate: regular rate Rhythm: regular rhythm GI: Palpation (GI): Soft to palpation Auscultation: normal bowel sounds Neuro: General: patient oriented x3 Extrem: Other: 2 plus pedal edema bilaterally General: Yes normal to inspection DS: Data Data Completed and Pending Completed studies during hospitalization [Text1]: Procedures [place] of Cardiac Rhythm, Single (05/01/21) Labs on day of discharge: Laboratory Results - last 24 hr 09/29/21 09/29/21 09/29/21 15:59 18:10 19:16 Sodium Potassium Chloride Carbon Dioxide Anion Gap BUN Creatinine Estim Creat Clear Calc Estimated GFR POC Glucose 423 H* 380 H* 308 H Random Glucose Calcium 09/29/21 09/29/21 09/30/21 20:02 22:55 04:04 Sodium Potassium Chloride Carbon Dioxide Anion Gap BUN Creatinine Estim Creat Clear Calc Estimated GFR POC Glucose 266 H 77 113 Random Glucose Calcium 09/30/21 09/30/21 09/30/21 07:25 08:56 11:00 Sodium 135 Potassium 3.5 Chloride 87 L Carbon Dioxide 37 H Anion Gap 15 BUN 104 H* Creatinine 3.38 H Estim Creat Clear Calc 17.2 Estimated GFR 18 POC Glucose 127 H 179 H Random Glucose 124 H Calcium 8.7 Discharge Plan Discharge Patient Disposition: Home Health Service Discharge Diagnosis: chf , ckd Referrals: [facility] [Outside] - 1 Week Miriam Gray MD [Primary Care Provider] - 10/23/21 2:30 pm (You have a follow up appointment on October 23 at 2:30 pm. Please call your doctor's office if you need to reschedule. ) Discharge Medications: New bumetanide 1 mg tablet 3 mg PO BID Qty: 180 RF: 0 pregabalin 50 mg capsule 50 mg PO DAILY Qty: 30 RF: 0 Continued (DME) pen needle, diabetic [UltiCare Pen Needle] 31 gauge x 5/16 needle subcut 5XD Qty: 200 RF: 11 atorvastatin 40 mg tablet 40 mg PO BEDTIME RF: 0 amiodarone 200 mg Tablet 200 mg PO DAILY@1200 RF: 0 omeprazole 20 mg Capsule,Delayed Release(Dr/Ec) 20 mg PO DAILY RF: 0 Pulmicort Flexhaler 90 mcg/actuation aerosol powdr breath activated 2 puff inhalation BID RF: 0 cholecalciferol (vitamin D3) [Vitamin D3] 50 mcg (2,000 unit) Capsule 50 mcg PO DAILY@1200 RF: 0 Eliquis 5 mg Tablet 5 mg PO BID RF: 0 Trulicity 1.5 mg/0.5 mL pen injector 1.5 mg subcut WE RF: 0 bicalutamide 50 mg Tablet 50 mg PO DAILY Qty: 30 RF: 0 hydralazine 25 mg tablet 1 tab PO TID RF: 0 (DME) lancets [TRUEplus Lancets] 33 gauge misc MISCELLANEOUS QID RF: 0 melatonin 3 mg tablet 1 tab PO BEDTIME PRN (Reason: insomnia) RF: 0 docusate sodium 100 mg capsule 1 cap PO BID PRN (Reason: Constipation) RF: 0 potassium chloride 20 mEq tablet,ER particles/crystals 2 tab PO DAILY@1200 RF: 0 (DME) blood sugar diagnostic Strip See Rx Instructions ea Not Applicable QID Qty: 10 RF: 0 Changed Toujeo SoloStar U-300 Insulin 300 unit/mL (1.5 mL) insulin pen 15 unit subcut BEDTIME Qty: 0 RF: 0 insulin lispro [Humalog KwikPen Insulin] 100 unit/mL insulin pen 8 unit subcut TID Qty: 0 RF: 0 Discontinued torsemide 20 mg tablet 20 mg PO DAILY@1200 RF: 0 torsemide 20 mg tablet 40 mg PO DAILY RF: 0 furosemide 20 mg Tablet 20 mg PO DAILY PRN (Reason: Edema) RF: 0 furosemide 20 mg Tablet 40 mg PO BID RF: 0 Discharge Orders: Discharge Order (Routine); Ordered 09/29/21 Ordered By: Alyssa Matos Diet: advance to usual diet, diabetic diet, low fat, low cholesterol and low salt diet Activity on Discharge: As tolerated Stand Alone Forms: Patient Portal Discharge page Other Ambulatory Orders: Basic Metabolic Panel (Routine) Timeframe: 1 Week Facility: [facility] - Location: Laboratory Ordered By: Alyssa Matos Care Plan Goals: Patient came to the hospital due to CHF exacerbation, Initially was on antibiotics for suspicion of pneumonia-but subsequently was switched to IV Lasix since etiology of dyspnea was thought to be CHF related- patient was started on IV diuretics the response initially was slow but patient almost range 7-8 L. His pulmonary pressures are fluctuating between 15-17 range, seen by Cardiology today-recommended to switch to p.o. Bumex since patient seems to be compensated CHF, patient is risk for readmissions . Discussed with cardiology. pt can be discharged on bumex 3mg PO BID. they will continue to monitor cardiomemes reading in the oddice and will change his diuretics accordingly Nephro also saw the patient because of CKD: Renal function is slightly on the dry side than usual, recommended to adjust Bumex to 3 mg p.o. b.i.d. as well as repeat renal function and electrolytes in 1 week outpatient with PCP, Nephro may arrange their own appointment. In addition pulmonary workup including CT scan and pulmonary perfusion study was done: Perfusion study is normal, CT scan reviewed by Pulmonary: Seems in the previous imaging seems to be significantly improved. In addition his alveolar densities were thought to be nonspecific,than pneumonia. Pulmonary recommended deep breathing exercises, Patient is not hypoxic denies any shortness of breath. Patient with lead repeat chest imaging in 3-4 weeks time to see resolution of chest CT findings. Consider outpatient pulmonary evaluation as per PCP. Diabetes claudio: Fingersticks are fluctuating, adjusted home insulin regimen-monitor fingersticks at home and further adjustment outpatient as per PCP. Above management discussed with the patient with cryptological technician in including cgf education given detail length he understand and in agreement with the above plan. Pt will need to follow up with nephrology for monitoring of kidney function Please hold dumex dose tonight and resume in the morning given his worsening kidney function. Bumex 3mg IV BID Health Concerns: As above. Plan of Treatment: As above. Assessment: As above. Patient Instructions: Heart Failure (DC), Diabetes and Nutrition (DC)
--- NOTE | 2021-09-30 13:53 | MHC.CM.PN ---
Scheduled plan for dc yesterday was postponed. Patient is now medically cleared for dc and NA has been notified of dc today.Last IMM addressed yesterday.
--- NOTE | 2021-09-30 14:35 | P.EN_ITS ---
Event Note Date of Service: 09/30/21 Event Note: at bedside was very concerned about patient's weakness, requi ring a walker. She and patient both are very concerned about his muscle twitching. I explained to her that his most likely has developed decompensation due to his prolonged hospital stay, he is going home with physical therapy as well as VNA. In regards to his muscles which is most likely secondary to uremia. Explained to her that he does have MORTEZA and worsening kidney function and will need to follow-up with Nephrology. Spent about 20 minutes discussing this with the patient and his . His reports that they do not want patient to be in rehab and he wants to take him home. Patient also refuses to go to rehab for his deconditioning as well as physical therapy needs This was done with the help of change management manager.
== END 2021-09-30 15:19 | disposition home health service (06) | DRG 280 ==
LOC: HO.ED 22:28 → HO.EDOVER 22:29 → HO.S3 22:46 → HO.IMC 09-28 14:49
PROVIDERS: Internal Medicine; Internal Medicine Nephrology; Nurse Practitioner Family; Admitting Provider Hospitalist; Emergency Provider Emergency Medicine Emergency Medical Services; PCP Family Medicine; Visit Provider Internal Medicine
DX: I13.0 Hypertensive heart and chronic kidney disease with heart failure and stage 1 through stage 4 chronic kidney disease, or unspecified chronic kidney disease (principal); I50.33 Acute on chronic diastolic (congestive) heart failure; I21.4 Non-ST elevation (NSTEMI) myocardial infarction; I48.20 Chronic atrial fibrillation, unspecified; E87.3 Alkalosis; N17.9 Acute kidney failure, unspecified; I25.10 Atherosclerotic heart disease of native coronary artery without angina pectoris; E78.5 Hyperlipidemia, unspecified; Z87.891 Personal history of nicotine dependence; E11.22 Type 2 diabetes mellitus with diabetic chronic kidney disease; N18.30 Chronic kidney disease, stage 3 unspecified; E87.6 Hypokalemia; E11.65 Type 2 diabetes mellitus with hyperglycemia; N25.0 Renal osteodystrophy; E66.9 Obesity, unspecified; Z68.28 Body mass index [BMI] 28.0-28.9, adult; Z20.822 Contact with and (suspected) exposure to COVID-19; Z79.4 Long term (current) use of insulin; Z79.01 Long term (current) use of anticoagulants; Z79.899 Other long term (current) drug therapy
CPT/HCPCS: 36415; 71045; 71046; 71250; 73030; 76775; 78580; 80048; 80051; 80202; 81001; 82043; 82565; 82784; 82947; 83735; 83880; 83970; 84132; 84145; 84156; 84484; 85025; 86021; 86038; 86039; 86160; 86334; 87040; 87635; 93005; 94640; 96374; 97116; 97163; 99285; A9540; J0692; J1940; J2543; J3370; Q0163

== ENCOUNTER 2021-10-03 13:02 | Outpatient (REF) | payer MEDICARE, SELFPAY ==
[2021-10-03 15:00] LABS: B Type Natriuretic Peptide 1520 pg/mL (<100)
[2021-10-03 15:14] LABS: Anion Gap 16 (12-20); Blood Urea Nitrogen 125 mg/dL (9-16); Carbon Dioxide 33 mmol/L (22-29); Chloride 81 mmol/L (96-108); Estimated Glomerular Filt Rate 14; Glucose Random 328 mg/dL (60-115); Magnesium 2.5 mg/dL (1.6-2.6); Potassium 3.7 mmol/L (3.3-5.1); Sodium 126 mmol/L (135-145)
[2021-10-03 15:40] LABS: Prostate Specific Antigen 14.96 ng/mL (<0.05-4.0)
[2021-10-03 16:33] LABS: Appearance Urine HAZY; Color Urine YELLOW; Glucose Urine UA 100 MG/DL (NEG); Leukocyte Esterase Urine NEG (NEG); Nitrite Urine NEG (NEG); Urine Blood NEG (NEG); Urine Ketones NEG (NEG); Urine Protein NEG (NEG-TRACE)
[2021-10-03 16:53] LABS: Mucus Urine TRACE /LPF; Squamous Epithelial Cell Urine TRACE /LPF
[2021-10-03 16:54] LABS: RBC Urine 0-2 /HPF (0); WBC Urine 0 /HPF (0-4)
== END 2021-10-03 13:03 | disposition home or self-care (01) ==
LOC: HO.LAB 13:02
PROVIDERS: Internal Medicine Cardiovascular Disease; Urology; PCP Family Medicine; Referring Provider Family Medicine; Visit Provider Nurse Practitioner Family
DX: C61 Malignant neoplasm of prostate (principal); I25.10 Atherosclerotic heart disease of native coronary artery without angina pectoris; I13.0 Hypertensive heart and chronic kidney disease with heart failure and stage 1 through stage 4 chronic kidney disease, or unspecified chronic kidney disease; E11.22 Type 2 diabetes mellitus with diabetic chronic kidney disease; I48.0 Paroxysmal atrial fibrillation; I50.33 Acute on chronic diastolic (congestive) heart failure; R31.9 Hematuria, unspecified; E87.6 Hypokalemia; N18.4 Chronic kidney disease, stage 4 (severe); Z95.818 Presence of other cardiac implants and grafts
CPT/HCPCS: 36415; 80048; 81001; 83735; 83880; 84153; 99212

== ENCOUNTER 2021-10-03 16:37 | Inpatient (IN) | payer MEDICARE, SELFPAY ==
--- NOTE | ~2021-10-03 | XR_ITS ---
EXAMINATION: XR CHEST CLINICAL INFORMATION: Bilateral lower extremity edema COMPARISON: 09/25/2021 TECHNIQUE: Frontal view of the chest was obtained. FINDINGS: Low lung volumes. Small right pleural effusion. Bronchial wall thickening. No interstitial changes. No pneumothorax. The cardiomediastinal silhouette is unchanged, with a calcified aorta. XR/XR chest 1V IMPRESSION: Small right pleural effusion. Bronchial wall thickening can be seen with a small airways process such as asthma or atypical/viral infection. This could also be associated with fluid overload.
--- NOTE | ~2021-10-03 | XR_ITS ---
EXAMINATION: XR CHEST CLINICAL INFORMATION: Fluid overload COMPARISON: Previous chest x-rays most recent 10/03/2021 TECHNIQUE: Frontal view of the chest was obtained. FINDINGS: The cardiac silhouette is enlarged but stable. There is recording device/cardiomems projecting over the left pulmonary hilum that is unchanged. There is interval decrease in pulmonary venous redistribution and increased perihilar markings suggestive of improving pulmonary edema. There is no significant pleural effusion. There is no pneumothorax. There is a sclerotic density in the left posterior fourth rib that appears unchanged and probably represents a bone island. XR/XR chest 1V IMPRESSION: Stable enlargement of the cardiac silhouette. Improved pulmonary edema compared to 10/03/2021 exam..
--- NOTE | ~2021-10-03 | US_ITS ---
EXAMINATION: ULTRASOUND RENAL WITH DOPPLER CLINICAL INFORMATION: Progressive renal and heart failure COMPARISON: Renal ultrasound 09/17/2021 TECHNIQUE: Real-time grayscale, color Doppler, and duplex Doppler evaluation of the kidneys and renal vasculature was performed. Today's examination is limited secondary to overlying bowel gas. FINDINGS: RENAL MEASUREMENTS: Right: 9.0 x 4.6 x 3.8 cm (Sag x AP x TV) Left: 9.0 x 6.3 x 4.7 cm (Sag x AP x TV) The renal parenchyma appears normal. No hydronephrosis or nephrolithiasis. A simple appearing 1.1 cm midpole cyst is again identified within the right kidney. DOPPLER INTERROGATION: Aorta: 76 cm/sec Right Main Renal Artery: Proximal: 238 cm/sec Mid: 134 cm/sec Distal: 184 cm/sec Left Main Renal Artery: Proximal: Not clearly visualized Mid: 83 cm/sec Distal: 84 cm/sec Renal-Aortic Ratio (RAR): Right: 3.1 Left: 1.1 US/US renal doppler IMPRESSION: Elevated velocities appreciated within the proximal right main renal artery suggesting possible hemodynamically significant stenosis. Unfortunately, today's examination is appreciably limited due to overlying bowel gas. Given these findings, further evaluation can be obtained with CTA imaging of the abdomen as clinically indicated.
[2021-10-03 17:14] VITALS: BP 106/55; PULSE 84; RESP 18; TEMP 36.8; O2SAT 99; BMI 28.3
--- NOTE | 2021-10-03 17:20 | ECG_ITS ---
Test Reason : ABNORMAL LABS Blood Pressure : / mmHG Vent. Rate : 085 BPM Atrial Rate : 000 BPM P-R Int : 000 ms QRS Dur : 118 ms QT Int : 422 ms P-R-T Axes : 000 268 081 degrees QTc Int : 502 ms Atrial fibrillation Right superior axis deviation Pulmonary disease pattern Non-specific intra-ventricular conduction delay Prolonged QT Abnormal ECG When compared with ECG of 29-SEP-2021 10:39, Atrial fibrillation has replaced Junctional rhythm Referred By: Generic ED Physician Electronically Signed By:SARAH HORTON MD
[2021-10-03 17:50] LABS: MANUAL DIFF FLAG NO
[2021-10-03 18:04] LABS: Basophils Percent Auto 0.4 % (0-2); Eosinophils Absolute Auto 0.1 X10*3/uL (0.0-0.4); Eosinophils Percent Auto 1.2 % (0-4); Hematocrit 31.2 % (42.0-52.0); Hemoglobin 9.9 g/dl (14.0-18.0); Imm Gran Abs Auto 0.05 X10*3/uL (0.00-0.03); Imm Gran Pct Auto 0.5 % (0.0-0.4); Lymphocytes Absolute Auto 0.9 X10*3/uL (1.2-4.9); Lymphocytes Percent Auto 8.9 % (20-40); Mean Corpuscular HGB Conc 31.7 g/dl (31.0-36.0); Mean Corpuscular Hemoglobin 25.8 pg (27.0-33.0); Mean Corpuscular Volume 81.5 fL (80.0-98.0); Mean Platelet Volume 11.3 fL (9.4-12.4); Monocytes Absolute Auto 1.2 X10*3/uL (0.1-1.2); Neutrophils Absolute Auto 8.3 x10*3/uL (2.0-8.3); Platelet Count 316 X10*3/uL (160-400); Red Blood Count 3.83 X10*6/uL (4.60-5.80); Red Cell Distribution Width 16.9 % (11.0-16.0); White Blood Count 10.6 X10*3/uL (4.8-10.8)
[2021-10-03 18:22] LABS: Blood Urea Nitrogen 124 mg/dL (9-16)
[2021-10-03 18:23] LABS: Anion Gap 17 (12-20); Calcium 8.4 mg/dL (8.4-10.2); Carbon Dioxide 30 mmol/L (22-29); Chloride 83 mmol/L (96-108); Creatinine Clr Calc Pharmacy 13.1; Estimated Glomerular Filt Rate 15; Glucose Random 346 mg/dL (60-115); Potassium 3.5 mmol/L (3.3-5.1); Sodium 126 mmol/L (135-145)
[2021-10-03 18:33] VITALS: BP 101/67; PULSE 87; RESP 14; TEMP 36.4; O2SAT 100
--- NOTE | 2021-10-03 18:58 | ED_ITS ---
HPI - Recheck/Abnormal Lab/Rx General Chief Complaint: Recheck/Abnormal Lab/Rx <GOLDIE Lowery - Last Filed: 10/03/21 21:49> Stated Complaint: ?Kidney failure <GOLDIE Lowery - Last Filed: 10/03/21 21:49> Time Seen by Provider: 10/03/21 18:21 <GOLDIE Lowery - Last Filed: 10/03/21 21:49> Source: patient <GOLDIE Lowery - Last Filed: 10/03/21 21:49> Mode of arrival: ambulatory <GOLDIE Lowery - Last Filed: 10/03/21 21:49> Limitations: no limitations <GOLDIE Lowery - Last Filed: 10/03/21 21:49> History of Present Illness HPI narrative: 76 yo male pmhx significant for CHF with [employer] HF system, hx PAF on Eliquis, NSVT, SRINIVASA, HTN, CKD stage 4, DM on insulin, CAD was sent to the emergency department from his cardiologists office with concerns of abnormal labs they told him his kidneys arent working, patient states hes not sure why he is here he states he is feeling ok. 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 His only complaint is progressively worsening weakness since his last hospital discharge and increased leg swelling. He states he is still making urine, normal amount and normal color. He states he is not on dialysis. He lives at home with his . He denies fevers, chills, nausea, vomiting, abdominal pain, chest pain, shortness of breath vision changes, dizziness. <GOLDIE Lowery - Last Filed: 10/03/21 21:49> MD complaint: abnormal lab (elevated BUN and creatinine ) <GOLDIE Lowery - Last Filed: 10/03/21 21:49> Symptoms since prior visit: worsening swelling (bilateral lower extremities ) <GOLDIE Lowery Last Filed: 10/03/21 21:49> Context: called for abnormal lab result (by cardiology ) <GOLDIE Lowery Last Filed: 10/03/21 21:49> Associated symptoms: none <GOLDIE Lowery - Last Filed: 10/03/21 21:49> Related Data Home Medications: Home Medications Medication Instructions Recorded Confirmed blood sugar diagnostic #10 ea 05/13/21 10/03/21 amiodarone 200 mg tablet 200 mg PO DAILY@1200 08/23/21 10/03/21 atorvastatin 40 mg tablet 40 mg PO BEDTIME 08/23/21 10/03/21 budesonide 90 mcg/actuation breath 2 puff INHALATION BID 08/23/21 10/03/21 activated powder inhaler (Pulmicort Flexhaler) cholecalciferol (vitamin D3) 50 50 mcg PO DAILY@1200 08/23/21 10/03/21 mcg (2,000 unit) capsule (Vitamin D3) dulaglutide 1.5 mg/0.5 mL 1.5 mg SUBCUT WE 08/23/21 10/03/21 subcutaneous pen injector (Trulicity) omeprazole 20 mg capsule,delayed 20 mg PO DAILY 08/23/21 10/03/21 release docusate sodium 100 mg capsule 1 cap PO BID PRN 09/03/21 10/03/21 hydralazine 25 mg tablet 1 tab PO TID 09/03/21 10/03/21 lancets 33 gauge (TRUEplus Lancets) 09/03/21 10/03/21 melatonin 3 mg tablet 1 tab PO BEDTIME PRN 09/03/21 10/03/21 potassium chloride 20 mEq 2 tab PO DAILY@1200 09/16/21 10/03/21 tablet,extended release(part/cryst) apixaban 5 mg tablet (Eliquis) 1 tab PO BID 10/03/21 10/03/21 Previous Rx's Medication Instructions Recorded bicalutamide 50 mg tablet 50 mg PO DAILY #30 tab 08/29/21 pen needle, diabetic 31 gauge x #200 ea 09/16/2104/06 (UltiCare Pen Needle) bumetanide 1 mg tablet 3 mg PO BID #180 tab 09/29/21 insulin glargine U-300 conc 300 15 unit (0.05 mL) SUBCUT BEDTIME 09/29/21 unit/mL (1.5 mL) subcutaneous pen #0 ml (Toudeyanira SoloStar U-300 Insulin) insulin lispro 100 unit/mL 8 unit (0.08 mL) SUBCUT TID #0 ml 09/29/21 subcutaneous pen (Humalog KwikPen (U-100) Insulin) pregabalin 50 mg capsule 50 mg PO DAILY #30 cap 09/29/21 <GOLDIE Lowery - Last Filed: 10/03/21 21:49> Allergies/Adverse Reactions: Allergies Allergy/AdvReac Type Severity Reaction Status Date / Time No Known Allergies Allergy Verified 10/03/21 17:13 [No Known Allergies*] <GOLDIE Lowery - Last Filed: 10/03/21 21:49> Review of Systems Review of Systems: Constitutional : No Weight loss, No Fever, No Chills, + Fatigue, No Malaise, +weakness ENT/Mouth : No sore throat, No Rhinorrhea Eyes: No Eye Pain, No Swelling, No Redness Cardiovascular : No Chest Pain, No SOB, No Dyspnea on Exertion, No Orthopnea, No Edema, No Palpitations Respiratory : No Cough, No Sputum, No Wheezing Gastrointestinal : No Nausea, No Vomiting, No Diarrhea, No Constipation, No abdominal Pain, No Hematochezia, No Melena Genitourinary : No Dysuria, No Urinary Frequency, No Hematuria, Musculoskeletal : No joint pain, No Myalgias, No Joint Swelling, + bilateral leg swelling Skin : No Skin Lesions, No rash Neuro : No Weakness, No Numbness, No Dizziness, No Headache All other systems reviewed and are negative <GOLDIE Lowery - Last Filed: 10/03/21 21:49> [facility], LAT[facility] Past Medical History Attestation statement: The following information was validated with the patient. <GOLDIE Lowery - Last Filed: 10/03/21 21:49> Source: old records reviewed and nursing notes reviewed <GOLDIE Lowery - Last Filed: 10/03/21 21:49> Medical History: Medical History CAD (coronary artery disease) Cardiomyopathy CKD (chronic kidney disease) stage 3, GFR 30-59 ml/min COVID-19 vaccine series completed Diabetic polyneuropathy associated with type 2 diabetes mellitus Dyslipidemia Essential hypertension History of cardioversion History of COVID-19 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 Obesity (BMI 30-39.9) SRINIVASA (obstructive sleep apnea) Presence of CardioMEMS HF system <GOLDIE Lowery - Last Filed: 10/03/21 21:49> Surgical History: Surgical History Hx of cardiac catheterization Hx of colonoscopy <GOLDIE Lowery - Last Filed: 10/03/21 21:49> Family History Family History: Family History Father Heart disease Diabetes mellitus Mother Diabetes mellitus <GOLDIE Lowery - Last Filed: 10/03/21 21:49> Social History Social History: Social History Household Members: Spouse Housing: Apartment Are you a primary career consultant to a significant other at home: No Do you presently have visiting nurse or other home services: No Alcohol intake: never Patient Tobacco Use Status: Former Tobacco user Quit Date: 1979 Tobacco use type: Cigarette Years Smoked: 33 e-Cigarette/Vaping Use: Never Used Second Hand Smoke Exposure: No Use of substances other than those prescribed or required for medical reasons: No Advance Directives: Yes Advance Directives on File: Yes Advance Directives Date on File: 08/23/21 service: No Current occupational status: unemployed and retired <GOLDIE Lowery - Last Filed: 10/03/21 21:49> Physical Exam Vital Signs: Vital Signs: Last Vital Signs Temp 97.5 F 10/03/21 20:47 Pulse 78 10/03/21 20:47 Resp 15 10/03/21 20:47 BP 103/78 10/03/21 20:47 Pulse Ox 100 10/03/21 20:47 Body Mass Index 30.2 Vital signs are stable. <GOLDIE Lowery - Last Filed: 10/03/21 21:49> Vital Signs: Last Vital Signs Temp 97.5 F 10/03/21 20:47 Pulse 78 10/03/21 20:47 Resp 15 10/03/21 20:47 BP 103/78 10/03/21 20:47 Pulse Ox 100 10/03/21 20:47 Body Mass Index 30.2 <GOLDIE Mccann - Last Filed: 10/03/21 22:04> Appearance: Alert.? Oriented X3.? No acute distress.? Eyes: Pupils equal, round and reactive to light.? ENT: Pharynx normal.? Neck: Normal inspection.? Neck supple.? CVS: Normal heart rate and rhythm.? Pulses normal.? Respiratory: No respiratory distress.? Breath sounds normal.? Abdomen: Soft and nontender and distended Skin: Skin warm and dry.? Normal skin color.? Normal skin turgor.? Extremities: + 4+ pitting edema to bilateral lower extremities.? No calf ttp Neuro: Oriented X 3.? No motor deficit.? No sensory deficit. <GOLDIE Lowery - Last Filed: 10/03/21 21:49> Course Course Course Narrative: Patient seen and examined-agree with assessment and plan for admission. <GOLDIE Mccann - Last Filed: 10/03/21 22:04> Reevaluation(s) Reevaluation #1: No leukocytosis. Baseline anemia noted. Plts normal. Low sodium 126. Chloride low, appears to be baseline. BUN 124, Cr 3.93 although elevated better than patients baseline. Troponin 645 second trop ordered for 2044. To note patients troponin appears to be chronically elevated. BNP 1429, appears to have been elevated in the past. UA clean no infection. COVID negative. Xray of chest shows small right pleural effusion and bronchial wall thickening which could be associated with fluid overload, highly likely in this case. Patient will be fluid restricted. <GOLDIE Lowery - Last Filed: 10/03/21 21:49> Time: 20:30 <GOLDIE Lowery - Last Filed: 10/03/21 21:49> Reevaluation #2: Spoke to Dr. Dudley who recommends giving patient 3 mg of IV Bumex now. Will reach out to hospitalist for admission. <GOLDIE Lowery - Last Filed: 10/03/21 21:49> Time: 20:42 <GOLDIE Lowery Last Filed: 10/03/21 21:49> Reevaluation #3: Spoke to Dr. Terrell patient will be admitted <GOLDIE Lowery - Last Filed: 10/03/21 21:49> Time: 20:50 <GOLDIE Lowery - Last Filed: 10/03/21 21:49> Additional Reevaluation(s): 2114 Urine osms low, urine sodium <2, urine creatinine 33.90. Consistent with hypervolemic hyponatremia. 2124 Second trop 768.4, increase less than delta 50%, low concern for ACS <GOLDIE Lowery - Last Filed: 10/03/21 21:49> MDM - Recheck/Abnormal Lab/Rx MDM Narrative Medical decision making narrative: 1854 76 yo male pmhx significant for CHF with CardioMEMS HF system, hx PAF on Eliquis, NSVT, SRINIVASA, HTN, CKD stage 4, DM on insulin, CAD, hx of NSTEMI was sent to the emergency department from his cardiologists office with concerns of abnormal labs elevated bun and createnine. Patient's only complaint is increased leg swelling, and progressivly worsening weakness and fatigue Upon physical examination patient is sitting upright on the stretcher, in no acute distress. Vital signs are stable. S1 and S2 were appreciated free of murmurs. Lungs are clear to auscultation bilaterally. Abdomen is soft, nontender, and distended. Patient has 4+ pitting edema from the knee down to bilateral lower extremities. No focal neuro deficits. Patient is alert and oriented x3. Able to ambulate with a cane, and help of spouse. Plan at this time is to obtain an EKG, COVID, weight, continuous cardiac monitoring, basic labs, troponin, EKG, chest x-ray. I will reach out to nephrology and cardiology at this time. To note patient was admitted to the hospital here from September 22, 2021 to September 30, 2021 he was admitted with an NSTEMI and CHF exacerbation. During his stay he was seen by Cardiology, pulmonology and Nephrology. Patient is on Bumex 3mg po bid. The last time that he presented to the ED his weight was 65.771 kg and today his weight is 70.1 kg <GOLDIE Lowery - Last Filed: 10/03/21 21:49> Medical Records Attestation: I reviewed the patient's medical records. <GOLDIE Lowery - Last Filed: 10/03/21 21:49> Lab Data Attestation: I reviewed the patient's lab results. <GOLDIE Lowery - Last Filed: 10/03/21 21:49> Result diagrams: : 10/03/21 17:43 10/03/21 17:42 <GOLDIE Lowery - Last Filed: 10/03/21 21:49> Labs: Lab Results 10/03/21 10/03/21 10/03/21 Range/Units 17:42 17:42 17:43 WBC 10.6 (4.8-10.8) X10*3/uL RBC 3.83 L (4.60-5.80) X10*6/uL Hgb 9.9 L (14.0-18.0) g/dl Hct 31.2 L (42.0-52.0) % MCV 81.5 (80.0-98.0) fL MCH 25.8 L (27.0-33.0) pg MCHC 31.7 (31.0-36.0) g/dl RDW 16.9 H (11.0-16.0) % Plt Count 316 (160-400) X10*3/uL MPV 11.3 (9.4-12.4) fL Immature Gran % (Auto) 0.5 H (0.0-0.4) % Neut % (Auto) 78.0 H (45-73) % Lymph % (Auto) 8.9 L (20-40) % [facility] % (Auto) 11.0 (2-11) % Eos % (Auto) 1.2 (0-4) % Baso % (Auto) 0.4 (0-2) % Lymph # (Auto) 0.9 L (1.2-4.9) X10*3/uL [facility] # (Auto) 1.2 (0.1-1.2) X10*3/uL Eos # (Auto) 0.1 (0.0-0.4) X10*3/uL Baso # (Auto) 0.0 (0.0-0.2) X10*3/uL Abs Immat Gran (auto) 0.05 H (0.00-0.03) X10*3/uL Absolute Neuts (auto) 8.3 (2.0-8.3) x10*3/uL Absolute Nucleated RBC 0.000 (0.0-0.012) X10*3/uL Nucleated RBC % (auto) 0.0 (0.0-0.2) /100WBC Sodium 126 L (135-145) mmol/L Potassium 3.5 (3.3-5.1) mmol/L Chloride 83 L (96-108) mmol/L Carbon Dioxide 30 H (22-29) mmol/L Anion Gap 17 (12-20) BUN 124 H* (9-16) mg/dL Creatinine 3.93 H (0.5-1.4) mg/dL Estim Creat Clear Calc 13.1 Estimated GFR 15 Random Glucose 346 H (60-115) mg/dL Osmolality (281-305) mosm/kg Calcium 8.4 D (8.4-10.2) mg/dL Troponin I High Sens 645.0 H* D (<3.5-35.0) ng/L B-Natriuretic Peptide 1429 H (<100) pg/mL Urine Osmolality (373-1093) mosm/kg Ur Random Sodium mmol/L Urine Creatinine mg/dL COVID-19 (KATY) (Negative) COVID-19 Clin Com 10/03/21 10/03/21 10/03/21 Range/Units 19:29 20:43 20:44 WBC (4.8-10.8) X10*3/uL RBC (4.60-5.80) X10*6/uL Hgb (14.0-18.0) g/dl Hct (42.0-52.0) % MCV (80.0-98.0) fL MCH (27.0-33.0) pg MCHC (31.0-36.0) g/dl RDW (11.0-16.0) % Plt Count (160-400) X10*3/uL MPV (9.4-12.4) fL Immature Gran % (Auto) (0.0-0.4) % Neut % (Auto) (45-73) % Lymph % (Auto) (20-40) % [facility] % (Auto) (2-11) % Eos % (Auto) (0-4) % Baso % (Auto) (0-2) % Lymph # (Auto) (1.2-4.9) X10*3/uL [facility] # (Auto) (0.1-1.2) X10*3/uL Eos # (Auto) (0.0-0.4) X10*3/uL Baso # (Auto) (0.0-0.2) X10*3/uL Abs Immat Gran (auto) (0.00-0.03) X10*3/uL Absolute Neuts (auto) (2.0-8.3) x10*3/uL Absolute Nucleated RBC (0.0-0.012) X10*3/uL Nucleated RBC % (auto) (0.0-0.2) /100WBC Sodium (135-145) mmol/L Potassium (3.3-5.1) mmol/L Chloride (96-108) mmol/L Carbon Dioxide (22-29) mmol/L Anion Gap (12-20) BUN (9-16) mg/dL Creatinine (0.5-1.4) mg/dL Estim Creat Clear Calc Estimated GFR Random Glucose (60-115) mg/dL Osmolality 316 H (281-305) mosm/kg Calcium (8.4-10.2) mg/dL Troponin I High Sens 768.4 H* (<3.5-35.0) ng/L B-Natriuretic Peptide (<100) pg/mL Urine Osmolality (373-1093) mosm/kg Ur Random Sodium mmol/L Urine Creatinine mg/dL COVID-19 (KATY) Negative (Negative) COVID-19 Clin Com See Note 10/03/21 10/03/21 Range/Units 20:44 20:44 WBC (4.8-10.8) X10*3/uL RBC (4.60-5.80) X10*6/uL Hgb (14.0-18.0) g/dl Hct (42.0-52.0) % MCV (80.0-98.0) fL MCH (27.0-33.0) pg MCHC (31.0-36.0) g/dl RDW (11.0-16.0) % Plt Count (160-400) X10*3/uL MPV (9.4-12.4) fL Immature Gran % (Auto) (0.0-0.4) % Neut % (Auto) (45-73) % Lymph % (Auto) (20-40) % [facility] % (Auto) (2-11) % Eos % (Auto) (0-4) % Baso % (Auto) (0-2) % Lymph # (Auto) (1.2-4.9) X10*3/uL [facility] # (Auto) (0.1-1.2) X10*3/uL Eos # (Auto) (0.0-0.4) X10*3/uL Baso # (Auto) (0.0-0.2) X10*3/uL Abs Immat Gran (auto) (0.00-0.03) X10*3/uL Absolute Neuts (auto) (2.0-8.3) x10*3/uL Absolute Nucleated RBC (0.0-0.012) X10*3/uL Nucleated RBC % (auto) (0.0-0.2) /100WBC Sodium (135-145) mmol/L Potassium (3.3-5.1) mmol/L Chloride (96-108) mmol/L Carbon Dioxide (22-29) mmol/L Anion Gap (12-20) BUN (9-16) mg/dL Creatinine (0.5-1.4) mg/dL Estim Creat Clear Calc Estimated GFR Random Glucose (60-115) mg/dL Osmolality (281-305) mosm/kg Calcium (8.4-10.2) mg/dL Troponin I High Sens (<3.5-35.0) ng/L B-Natriuretic Peptide (<100) pg/mL Urine Osmolality 286 L (373-1093) mosm/kg Ur Random Sodium < 20.0 mmol/L Urine Creatinine 33.90 mg/dL COVID-19 (KATY) (Negative) COVID-19 Clin Com <GOLDIE Lowery - Last Filed: 10/03/21 21:49> Lab Results 10/03/21 10/03/21 10/03/21 Range/Units 17:42 17:42 17:43 WBC 10.6 (4.8-10.8) X10*3/uL RBC 3.83 L (4.60-5.80) X10*6/uL Hgb 9.9 L (14.0-18.0) g/dl Hct 31.2 L (42.0-52.0) % MCV 81.5 (80.0-98.0) fL MCH 25.8 L (27.0-33.0) pg MCHC 31.7 (31.0-36.0) g/dl RDW 16.9 H (11.0-16.0) % Plt Count 316 (160-400) X10*3/uL MPV 11.3 (9.4-12.4) fL Immature Gran % (Auto) 0.5 H (0.0-0.4) % Neut % (Auto) 78.0 H (45-73) % Lymph % (Auto) 8.9 L (20-40) % [facility] % (Auto) 11.0 (2-11) % Eos % (Auto) 1.2 (0-4) % Baso % (Auto) 0.4 (0-2) % Lymph # (Auto) 0.9 L (1.2-4.9) X10*3/uL [facility] # (Auto) 1.2 (0.1-1.2) X10*3/uL Eos # (Auto) 0.1 (0.0-0.4) X10*3/uL Baso # (Auto) 0.0 (0.0-0.2) X10*3/uL Abs Immat Gran (auto) 0.05 H (0.00-0.03) X10*3/uL Absolute Neuts (auto) 8.3 (2.0-8.3) x10*3/uL Absolute Nucleated RBC 0.000 (0.0-0.012) X10*3/uL Nucleated RBC % (auto) 0.0 (0.0-0.2) /100WBC Sodium 126 L (135-145) mmol/L Potassium 3.5 (3.3-5.1) mmol/L Chloride 83 L (96-108) mmol/L Carbon Dioxide 30 H (22-29) mmol/L Anion Gap 17 (12-20) BUN 124 H* (9-16) mg/dL Creatinine 3.93 H (0.5-1.4) mg/dL Estim Creat Clear Calc 13.1 Estimated GFR 15 Random Glucose 346 H (60-115) mg/dL Osmolality (281-305) mosm/kg Calcium 8.4 D (8.4-10.2) mg/dL Troponin I High Sens 645.0 H* D (<3.5-35.0) ng/L B-Natriuretic Peptide 1429 H (<100) pg/mL Urine Osmolality (373-1093) mosm/kg Ur Random Sodium mmol/L Urine Creatinine mg/dL COVID-19 (KATY) (Negative) COVID-19 Clin Com 10/03/21 10/03/21 10/03/21 Range/Units 19:29 20:43 20:44 WBC (4.8-10.8) X10*3/uL RBC (4.60-5.80) X10*6/uL Hgb (14.0-18.0) g/dl Hct (42.0-52.0) % MCV (80.0-98.0) fL MCH (27.0-33.0) pg MCHC (31.0-36.0) g/dl RDW (11.0-16.0) % Plt Count (160-400) X10*3/uL MPV (9.4-12.4) fL Immature Gran % (Auto) (0.0-0.4) % Neut % (Auto) (45-73) % Lymph % (Auto) (20-40) % [facility] % (Auto) (2-11) % Eos % (Auto) (0-4) % Baso % (Auto) (0-2) % Lymph # (Auto) (1.2-4.9) X10*3/uL [facility] # (Auto) (0.1-1.2) X10*3/uL Eos # (Auto) (0.0-0.4) X10*3/uL Baso # (Auto) (0.0-0.2) X10*3/uL Abs Immat Gran (auto) (0.00-0.03) X10*3/uL Absolute Neuts (auto) (2.0-8.3) x10*3/uL Absolute Nucleated RBC (0.0-0.012) X10*3/uL Nucleated RBC % (auto) (0.0-0.2) /100WBC Sodium (135-145) mmol/L Potassium (3.3-5.1) mmol/L Chloride (96-108) mmol/L Carbon Dioxide (22-29) mmol/L Anion Gap (12-20) BUN (9-16) mg/dL Creatinine (0.5-1.4) mg/dL Estim Creat Clear Calc Estimated GFR Random Glucose (60-115) mg/dL Osmolality 316 H (281-305) mosm/kg Calcium (8.4-10.2) mg/dL Troponin I High Sens 768.4 H* (<3.5-35.0) ng/L B-Natriuretic Peptide (<100) pg/mL Urine Osmolality (373-1093) mosm/kg Ur Random Sodium mmol/L Urine Creatinine mg/dL COVID-19 (KATY) Negative (Negative) COVID-19 Clin Com See Note 10/03/21 10/03/21 Range/Units 20:44 20:44 WBC (4.8-10.8) X10*3/uL RBC (4.60-5.80) X10*6/uL Hgb (14.0-18.0) g/dl Hct (42.0-52.0) % MCV (80.0-98.0) fL MCH (27.0-33.0) pg MCHC (31.0-36.0) g/dl RDW (11.0-16.0) % Plt Count (160-400) X10*3/uL MPV (9.4-12.4) fL Immature Gran % (Auto) (0.0-0.4) % Neut % (Auto) (45-73) % Lymph % (Auto) (20-40) % [facility] % (Auto) (2-11) % Eos % (Auto) (0-4) % Baso % (Auto) (0-2) % Lymph # (Auto) (1.2-4.9) X10*3/uL [facility] # (Auto) (0.1-1.2) X10*3/uL Eos # (Auto) (0.0-0.4) X10*3/uL Baso # (Auto) (0.0-0.2) X10*3/uL Abs Immat Gran (auto) (0.00-0.03) X10*3/uL Absolute Neuts (auto) (2.0-8.3) x10*3/uL Absolute Nucleated RBC (0.0-0.012) X10*3/uL Nucleated RBC % (auto) (0.0-0.2) /100WBC Sodium (135-145) mmol/L Potassium (3.3-5.1) mmol/L Chloride (96-108) mmol/L Carbon Dioxide (22-29) mmol/L Anion Gap (12-20) BUN (9-16) mg/dL Creatinine (0.5-1.4) mg/dL Estim Creat Clear Calc Estimated GFR Random Glucose (60-115) mg/dL Osmolality (281-305) mosm/kg Calcium (8.4-10.2) mg/dL Troponin I High Sens (<3.5-35.0) ng/L B-Natriuretic Peptide (<100) pg/mL Urine Osmolality 286 L (373-1093) mosm/kg Ur Random Sodium < 20.0 mmol/L Urine Creatinine 33.90 mg/dL COVID-19 (KATY) (Negative) COVID-19 Clin Com <GOLDIE Mccann - Last Filed: 10/03/21 22:04> Imaging Data Chest x-ray: Attestation: I personally reviewed and interpreted this imaging study as follows: <GOLDIE Lowery - Last Filed: 10/03/21 21:49> Radiologist's impression: XR/XR chest 1V IMPRESSION: Small right pleural effusion. Bronchial wall thickening can be seen with a small airways process such as asthma or atypical/viral infection. This could also be associated with fluid overload. ? <GOLDIE Lowery - Last Filed: 10/03/21 21:49> ECG Data Attestation: I personally reviewed and interpreted this ECG as follows: <GOLDIE Lowery - Last Filed: 10/03/21 21:49> ECG interpretation date: 10/03/21 <GOLDIE Lowery - Last Filed: 10/03/21 21:49> Prior ECG tracings: available for review <GOLDIE Lowery - Last Filed: 10/03/21 21:49> Interpretation: Ventricular rate of 85, QT prolongued. EKG shows atrial fibrillation with a competing junctional pacemaker. RAD. No YULISSA or depressions. No acute ischemia. When compared to ekg from 09/29/21 A-fib is now present. <GOLDIE Lowery - Last Filed: 10/03/21 21:49> Discharge Plan Discharge Clinical Impression: CKD (chronic kidney disease), Hyponatremia, CHF (congestive heart failure), Weakness <GOLDIE Lowery - Last Filed: 10/03/21 21:49> Patient Disposition: Admitted As Inpatient <GOLDIE Lowery - Last Filed: 10/03/21 21:49>
[2021-10-03 19:17] VITALS: BMI 30.2
[2021-10-03 19:19] VITALS: BP 115/56; PULSE 77; RESP 19; TEMP 36.4; O2SAT 100
[2021-10-03 19:28] LABS: B Type Natriuretic Peptide 1429 pg/mL (<100)
--- NOTE | 2021-10-03 19:32 | PHA.MEDREC ---
Pharmacy Consult ? Medication Reconciliation Pharmacy has completed the medication reconciliation.
[2021-10-03 19:48] LABS: COVID-19 Test Negative (Negative)
[2021-10-03 20:47] VITALS: BP 103/78; PULSE 78; RESP 15; TEMP 36.4; O2SAT 100
--- NOTE | 2021-10-03 20:51 | P.HPHOSP_ITS ---
History of Present Illness Date of Service: 10/03/21 Chief Complaint: Fatigue 76-year-old male with a past medical history of hypertension, hyperlipidemia, diabetes, CAD, CHF with CardioMEMS HS system, paroxysmal AFib on Eliquis presented to the hospital with a chief complaint of generalized weakness/fatigue. Patient reports that he was recently discharged from the hospital after acute CHF exacerbation; went to the cardiology clinic for follow-up today and was noted to be in CHF, basic labs were drawn which showed elevated renal function and BUN and subsequently also patient to go to the ER for further evaluation. Patient reported that he has been having generalized weakness and tiredness; otherwise denies any chest pain palpitations lightheadedness or dizziness. Mentions that has mild shortness of breath on exertion; Mentioned that he continued to have bilateral leg swelling since the discharge. Denies any fever chills cough Denies any GI or symptoms. Review of all other systems is negative except mentioned above ER course: Per ER team patient noted to have gained 5 kilos since discharge; on exam noted to have peripheral edema, noted to be in acute CHF exacerbation; after discussion with Cardiology patient was given IV Bumex. On labs noted to have elevated creatinine and BUN. Patient mentating well. Admitted for further management. [facility] Medical History CAD (coronary artery disease) Cardiomyopathy CKD (chronic kidney disease) stage 3, GFR 30-59 ml/min COVID-19 vaccine series completed Diabetic polyneuropathy associated with type 2 diabetes mellitus Dyslipidemia Essential hypertension History of cardioversion History of COVID-19 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 Obesity (BMI 30-39.9) SRINIVASA (obstructive sleep apnea) Presence of CardioMEMS HF system Family History Father Heart disease Diabetes mellitus Mother Diabetes mellitus Pertinent family history: as above Surgical History Hx of cardiac catheterization Hx of colonoscopy Social History Household Members: Spouse Housing: Apartment Are you a primary respite care provider to a significant other at home: No Do you presently have visiting nurse or other home services: No Alcohol intake: never Patient Tobacco Use Status: Former Tobacco user Quit Date: 1979 Tobacco use type: Cigarette Years Smoked: 33 e-Cigarette/Vaping Use: Never Used Second Hand Smoke Exposure: No Use of substances other than those prescribed or required for medical reasons: No Advance Directives: Yes Advance Directives on File: Yes Advance Directives Date on File: 08/23/21 service: No Current occupational status: unemployed and retired Meds Allergies Allergy/AdvReac Type Severity Reaction Status Date / Time No Known Allergies Allergy Verified 10/03/21 17:13 [No Known Allergies*] Active Medications: Current Medications Pharmacy Consult (Consult Rx Perform Med Rec) 1 each MISCELLANE ONCE PRN PRN Reason: Consult order Home Medications Medication Instructions Recorded Confirmed Last Taken Type blood sugar diagnostic #10 ea 05/13/21 10/03/21 10/03/21 History amiodarone 200 mg tablet 200 mg PO DAILY@1200 08/23/21 10/03/21 10/03/21 History atorvastatin 40 mg tablet 40 mg PO BEDTIME 08/23/21 10/03/21 10/02/21 History budesonide 90 mcg/actuation breath 2 puff INHALATION BID 08/23/21 10/03/21 10/03/21 History activated powder inhaler (Pulmicort Flexhaler) cholecalciferol (vitamin D3) 50 50 mcg PO DAILY@1200 08/23/21 10/03/21 10/03/21 History mcg (2,000 unit) capsule (Vitamin D3) dulaglutide 1.5 mg/0.5 mL 1.5 mg SUBCUT WE 08/23/21 10/03/21 10/01/21 History subcutaneous pen injector (Trulicity) omeprazole 20 mg capsule,delayed 20 mg PO DAILY 08/23/21 10/03/21 10/03/21 History release docusate sodium 100 mg capsule 1 cap PO BID PRN 09/03/21 10/03/21 10/03/21 History hydralazine 25 mg tablet 1 tab PO TID 09/03/21 10/03/21 10/03/21 History lancets 33 gauge (TRUEplus Lancets) 09/03/21 10/03/21 10/03/21 History melatonin 3 mg tablet 1 tab PO BEDTIME PRN 09/03/21 10/03/21 10/02/21 History potassium chloride 20 mEq 2 tab PO DAILY@1200 09/16/21 10/03/21 10/03/21 History tablet,extended release(part/cryst) apixaban 5 mg tablet (Eliquis) 1 tab PO BID 10/03/21 10/03/21 10/03/21 History Physical Exam Vital Signs and Narrative: Vital Signs: Last Vital Signs Temp 97.5 F 10/03/21 19:19 Pulse 77 10/03/21 19:19 Resp 19 10/03/21 19:19 BP 115/56 L 10/03/21 19:19 Pulse Ox 100 10/03/21 19:19 Body Mass Index 30.2 Gen: Appears be in no acute distress HEENT: NCAT, Moist mucosa. Pulmonary: Fine crackles at bases, fair air entry CVS: Normal S1-S2 Abdomen: BS+, Soft, Nontender Extremities: Warm well perfused; 2+ pitting edema Neuro: Alert and awake. Oriented x3. Grossly nonfocal. Results Labs CBC and Chem 7: 10/03/21 17:43 10/03/21 17:42 Labs: Laboratory Results - last 24 hr 10/03/21 10/03/21 10/03/21 17:42 17:42 17:43 MCV 81.5 MCH 25.8 L MCHC 31.7 RDW 16.9 H Plt Count 316 MPV 11.3 Immature Gran % (Auto) 0.5 H Neut % (Auto) 78.0 H Lymph % (Auto) 8.9 L Sierra % (Auto) 11.0 Eos % (Auto) 1.2 Baso % (Auto) 0.4 Lymph # (Auto) 0.9 L [place] # (Auto) 1.2 Eos # (Auto) 0.1 Baso # (Auto) 0.0 Abs Immat Gran (auto) 0.05 H Absolute Neuts (auto) 8.3 Absolute Nucleated RBC 0.000 Nucleated RBC % (auto) 0.0 Anion Gap 17 Creatinine 3.93 H Estim Creat Clear Calc 13.1 Estimated GFR 15 Random Glucose 346 H Calcium 8.4 D Troponin I High Sens 645.0 H* D B-Natriuretic Peptide 1429 H COVID-19 (KATY) COVID-19 Clin Com 10/03/21 19:29 MCV MCH MCHC RDW Plt Count MPV Immature Gran % (Auto) Neut % (Auto) Lymph % (Auto) Sierra % (Auto) Eos % (Auto) Baso % (Auto) Lymph # (Auto) Sierra # (Auto) Eos # (Auto) Baso # (Auto) Abs Immat Gran (auto) Absolute Neuts (auto) Absolute Nucleated RBC Nucleated RBC % (auto) Anion Gap Creatinine Estim Creat Clear Calc Estimated GFR Random Glucose Calcium Troponin I High Sens B-Natriuretic Peptide COVID-19 (KATY) Negative COVID-19 Clin Com See Note Imaging Radiologist's Impressions: Impressions Chest X-Ray 10/03/21 18:55 IMPRESSION: Small right pleural effusion. Bronchial wall thickening can be seen with a small airways process such as asthma or atypical/viral infection. This could also be associated with fluid overload. Assessment and Plan (1) Acute CHF: Status: Acute (2) Acute kidney injury superimposed on CKD: Status: Acute (3) Hyponatremia: Status: Acute (4) Elevated BUN: Status: Acute 76-year-old male with a past medical history of hypertension, hyperli pidemia, diabetes, CAD, CHF with CardioMEMS HS system, paroxysmal AFib on Eliquis presented to the hospital with a chief complaint of generalized weakness/fatigue. Noted to be in acute CHF exacerbation/MORTEZA on CKD. Admitted for further management. Acute CHF exacerbation: Patient received IV Bumex in the ER. Will continue. Spoke to Cardiology Dr Dudley-> mentioned to monitor for now and will be evaluated in the morning further recommendations. Telemetry I/O and daily weights Patient has elevated troponins-likely in setting of demand/reduced clearance from renal insufficiency. Patient has chronically elevated troponins. Denies any chest pain. MORTEZA on CKD: Patient noted to have severely elevated BUN 124.? Cardiorenal syndrome. Nephrology consult avoid nephrotoxins History of paroxysmal AFib: Patient on Eliquis. Continue home beta-vasquez. Diabetes: Insulin sliding scale For all other chronic conditions,home medications will be continued Code status: Full code Quality Stroke Does the patient have a stroke diagnosis?: No VTE Prior VTE?: No VTE Risk Level:: Medical - moderate - high VTE Device Contraindication: Treatment Not Indicated VTE Drug Contraindication: N/A - Med Ordered
[2021-10-03 21:02] LABS: Osmolality Urine 286 mosm/kg (373-1093)
[2021-10-03 21:09] LABS: Sodium Urine Random < 20.0 mmol/L
[2021-10-03 21:16] LABS: Osmolality, Serum 316 mosm/kg (281-305)
[2021-10-03] MEDS: Bumetanide 1 MG/4 ML VIAL 3 MG IVPUSH (21:17)
[2021-10-03 21:18] LABS: Troponin-I High Sensitivity 768.4 ng/L (<3.5-35.0)
[2021-10-03 21:24] LABS: Glucose, Whole Blood 247 mg/dL (60-115)
[2021-10-03] MEDS: Insulin Lispro 100 UNIT/ML 3 ML VIAL SUBCUT (22:00)
[2021-10-04] VITALS (20 sets, daily range): BP systolic 82–119; BP diastolic 49–97; PULSE 67–90; RESP 12–19; TEMP 36.4–36.7; O2SAT 91–100; BMI 30.1
[2021-10-04 06:29] LABS: MANUAL DIFF FLAG NO
[2021-10-04 06:34] LABS: Basophils Percent Auto 0.3 % (0-2); Eosinophils Absolute Auto 0.3 X10*3/uL (0.0-0.4); Eosinophils Percent Auto 2.5 % (0-4); Hematocrit 30.8 % (42.0-52.0); Hemoglobin 9.9 g/dl (14.0-18.0); Imm Gran Abs Auto 0.04 X10*3/uL (0.00-0.03); Imm Gran Pct Auto 0.4 % (0.0-0.4); Lymphocytes Absolute Auto 1.3 X10*3/uL (1.2-4.9); Lymphocytes Percent Auto 12.9 % (20-40); Mean Corpuscular HGB Conc 32.1 g/dl (31.0-36.0); Mean Corpuscular Hemoglobin 25.8 pg (27.0-33.0); Mean Corpuscular Volume 80.4 fL (80.0-98.0); Mean Platelet Volume 11.3 fL (9.4-12.4); Monocytes Absolute Auto 1.3 X10*3/uL (0.1-1.2); Monocytes Percent Auto 12.6 % (2-11); Neutrophils Absolute Auto 7.2 x10*3/uL (2.0-8.3); Neutrophils Percent Auto 71.3 % (45-73); Platelet Count 317 X10*3/uL (160-400); Red Blood Count 3.83 X10*6/uL (4.60-5.80); Red Cell Distribution Width 16.8 % (11.0-16.0); White Blood Count 10.1 X10*3/uL (4.8-10.8)
[2021-10-04] MEDS: Omeprazole 20 MG CAPSULE.DR PO (06:39)
[2021-10-04 07:03] LABS: Magnesium 2.5 mg/dL (1.6-2.6)
[2021-10-04 07:14] LABS: Anion Gap 19 (12-20); Blood Urea Nitrogen 120 mg/dL (9-16); Calcium 8.8 mg/dL (8.4-10.2); Carbon Dioxide 31 mmol/L (22-29); Chloride 87 mmol/L (96-108); Creatinine Clr Calc Pharmacy 15.1; Estimated Glomerular Filt Rate 17; Glucose Random 207 mg/dL (60-115); Potassium 3.5 mmol/L (3.3-5.1); Sodium 133 mmol/L (135-145)
[2021-10-04 07:18] LABS: Glucose, Whole Blood 204 mg/dL (60-115)
[2021-10-04] MEDS: Insulin Lispro 100 UNIT/ML 3 ML VIAL SUBCUT ×4 (07:22→20:14)
[2021-10-04] MEDS: Apixaban 5 MG TABLET PO ×2 (09:00→20:14)
[2021-10-04] MEDS: Pregabalin 50 MG CAPSULE PO (09:00)
[2021-10-04] MEDS: Bicalutamide 50 MG TABLET PO (09:00)
--- NOTE | 2021-10-04 09:08 | PC.NURSE ---
Pt noted to be hypotensive at 82/58. Dr. Fisher notified. Bumex and hydralazine held. Pt is asymptomatic at this time. Will continue to monitor.
--- NOTE | 2021-10-04 09:36 | HO.PM.IMPN ---
Subjective Subjective Date of Service: 10/04/21 Interval History: Seen in f/u for CHF, cardiorenal syndrome, c/o fatigue, no sob. He was recently discharged from the hospital following treatement for heart failure, cardiorenal syndrome and at that time required bumex drip Review of Systems no sob swollen legs fatigue Physical Exam Vital Signs: Vital Signs: Last Vital Signs Temp 97.5 F 10/03/21 20:47 Pulse 72 10/04/21 09:25 Resp 18 10/04/21 09:25 BP 106/52 L 10/04/21 09:25 Pulse Ox 100 10/04/21 09:25 Body Mass Index 30.2 Const: Other: General: AO X 3, no acute distress Resp: clear, no rales CVS: S1,S2, iregular 2+ leg edema GI: +BS, NT, no distention Skin: No rash Neuro: motor grossly intact Psych: appropriate affect Objective Data Active Medications Acetaminophen (Acetaminophen 325 Mg Tablet) 650 mg PO Q6H PRN PRN Reason: Pain, Mild (Pain Scale 1-3) Amiodarone HCl (Amiodarone Hcl 200 Mg Tablet) 200 mg PO DAILY@1200 KIM Apixaban (Apixaban 5 Mg Tablet) 5 mg PO BID [facility] Last Admin: 10/04/21 09:00 Dose: 5 mg Documented by: EVER Atorvastatin Calcium (Atorvastatin Calcium 40 Mg Tablet) 40 mg PO BEDTIME [facility] Bicalutamide (Bicalutamide 50 Mg Tablet) 50 mg PO DAILY [facility] Last Admin: 10/04/21 09:00 Dose: 50 mg Documented by: EVER Bumetanide (Bumetanide 1 Mg/4 Ml Vial) 3 mg IVPUSH BID [facility]; Protocol Last Admin: 10/04/21 09:06 Dose: Not Given Documented by: EVER Non-Admin Reason: Decreased Blood Pressure Dextrose (Dextrose 50 % 25 Gm/50 Ml Vial) 25 gm IVPUSH Q15M PRN; Protocol PRN Reason: per Hypoglycemia Standing Ord. Docusate Sodium (Docusate Sodium 100 Mg Capsule) 100 mg PO BID PRN PRN Reason: Constipation Glucose (Glucose Gel 15 Gm Gel..Gram.) 15 gm PO Q15M PRN; Protocol PRN Reason: per Hypoglycemia Standing Ord. Hydralazine HCl (Hydralazine Hcl 25 Mg Tablet) 25 mg PO TID [facility]; Protocol Last Admin: 10/04/21 09:02 Dose: Not Given Documented by: EVER Non-Admin Reason: Decreased Blood Pressure Insulin Human Lispro (Insulin Lispro 100 Unit/Ml 3 Ml Vial) 0 unit SUBCUT QIDACHS [facility]; Protocol Last Admin: 10/04/21 07:22 Dose: 4 unit Documented by: EVER Melatonin (Melatonin 3 Mg Tablet) 6 mg PO BEDTIME PRN PRN Reason: Insomnia Nitroglycerin (Nitroglycerin 0.4 Mg Tab.Subl) 0.4 mg SUBLINGUAL Q5MX3 PRN PRN Reason: Chest Pain Omeprazole (Omeprazole 20 Mg Capsule.Dr) 20 mg PO DAILY@0630 [facility] Last Admin: 10/04/21 06:39 Dose: 20 mg Documented by: STEWART Pregabalin (Pregabalin 50 Mg Capsule) 50 mg PO DAILY [facility] Last Admin: 10/04/21 09:00 Dose: 50 mg Documented by: EVER Senna (Sennosides 8.6 Mg Tablet) 17.2 mg PO BEDTIME PRN PRN Reason: Constipation Sodium Chloride (0.9 % Sodium Chloride Flush 3 Ml Syringe) 3 ml IVFLUSH QSHIFT [facility] Last Admin: 10/04/21 07:04 Dose: Not Given Documented by: EVER Non-Admin Reason: Med Not Available Vitamin D (Cholecalciferol (Vitamin D3) 25 Mcg Tablet) 50 mcg PO DAILY@1200 [facility] Labs CBC & Chem 7: 10/04/21 06:01 10/04/21 06:01 Labs: Laboratory Results - last 24 hr 10/03/21 10/03/21 10/03/21 17:42 17:42 17:43 MCV 81.5 MCH 25.8 L MCHC 31.7 RDW 16.9 H Plt Count 316 MPV 11.3 Immature Gran % (Auto) 0.5 H Neut % (Auto) 78.0 H Lymph % (Auto) 8.9 L Carson % (Auto) 11.0 Eos % (Auto) 1.2 Baso % (Auto) 0.4 Lymph # (Auto) 0.9 L Carson # (Auto) 1.2 Eos # (Auto) 0.1 Baso # (Auto) 0.0 Abs Immat Gran (auto) 0.05 H Absolute Neuts (auto) 8.3 Absolute Nucleated RBC 0.000 Nucleated RBC % (auto) 0.0 Anion Gap 17 Estim Creat Clear Calc 13.1 Estimated GFR 15 POC Glucose Random Glucose 346 H Osmolality Calcium 8.4 D Magnesium Troponin I High Sens 645.0 H* D B-Natriuretic Peptide 1429 H Urine Osmolality Ur Random Sodium Urine Creatinine COVID-19 (KATY) COVID-19 [employer] 10/03/21 10/03/21 10/03/21 19:29 20:43 20:44 MCV MCH MCHC RDW Plt Count MPV Immature Gran % (Auto) Neut % (Auto) Lymph % (Auto) Carson % (Auto) Eos % (Auto) Baso % (Auto) Lymph # (Auto) Carson # (Auto) Eos # (Auto) Baso # (Auto) Abs Immat Gran (auto) Absolute Neuts (auto) Absolute Nucleated RBC Nucleated RBC % (auto) Anion Gap Estim Creat Clear Calc Estimated GFR POC Glucose Random Glucose Osmolality 316 H Calcium Magnesium Troponin I High Sens 768.4 H* B-Natriuretic Peptide Urine Osmolality Ur Random Sodium Urine Creatinine COVID-19 (KATY) Negative COVID-[employer] See Note 10/03/21 10/03/21 10/03/21 20:44 20:44 21:20 MCV MCH MCHC RDW Plt Count MPV Immature Gran % (Auto) Neut % (Auto) Lymph % (Auto) Carson % (Auto) Eos % (Auto) Baso % (Auto) Lymph # (Auto) Carson # (Auto) Eos # (Auto) Baso # (Auto) Abs Immat Gran (auto) Absolute Neuts (auto) Absolute Nucleated RBC Nucleated RBC % (auto) Anion Gap Estim Creat Clear Calc Estimated GFR POC Glucose 247 H Random Glucose Osmolality Calcium Magnesium Troponin I High Sens B-Natriuretic Peptide Urine Osmolality 286 L Ur Random Sodium < 20.0 Urine Creatinine 33.90 COVID-19 (KATY) COVID-[employer] 10/04/21 10/04/21 10/04/21 06:01 06:01 06:01 MCV 80.4 MCH 25.8 L MCHC 32.1 RDW 16.8 H Plt Count 317 MPV 11.3 Immature Gran % (Auto) 0.4 Neut % (Auto) 71.3 Lymph % (Auto) 12.9 L Carson % (Auto) 12.6 H Eos % (Auto) 2.5 Baso % (Auto) 0.3 Lymph # (Auto) 1.3 Carson # (Auto) 1.3 H Eos # (Auto) 0.3 Baso # (Auto) 0.0 Abs Immat Gran (auto) 0.04 H Absolute Neuts (auto) 7.2 Absolute Nucleated RBC 0.000 Nucleated RBC % (auto) 0.0 Anion Gap 19 Estim Creat Clear Calc 15.1 Estimated GFR 17 POC Glucose Random Glucose 207 H D Osmolality Calcium 8.8 Magnesium 2.5 Troponin I High Sens B-Natriuretic Peptide Urine Osmolality Ur Random Sodium Urine Creatinine COVID-19 (KATY) COVID-19 [employer] Com 10/04/21 07:09 MCV MCH MCHC RDW Plt Count MPV Immature Gran % (Auto) Neut % (Auto) Lymph % (Auto) Carson % (Auto) Eos % (Auto) Baso % (Auto) Lymph # (Auto) Carson # (Auto) Eos # (Auto) Baso # (Auto) Abs Immat Gran (auto) Absolute Neuts (auto) Absolute Nucleated RBC Nucleated RBC % (auto) Anion Gap Estim Creat Clear Calc Estimated GFR POC Glucose 204 H Random Glucose Osmolality Calcium Magnesium Troponin I High Sens B-Natriuretic Peptide Urine Osmolality Ur Random Sodium Urine Creatinine COVID-19 (KATY) COVID-19 Clin Figure 8 Surgical Assessment and Plan (1) Diabetes mellitus: Status: Acute Assessment and Plan: 76-year-old male with a past medical history of hypertension, hyperlipidemia, diabetes, CAD, CHF, AFIB on eliquis, history of COVID-19 infection, obesity, obstructive sleep apnea, recent discharge from the hospital 3 days earlier for hear failure and renal failure--esssentially cardiorenal syndrome and present with worsening symmptoms and worsening renal functgion. 1Acute on chronic diastolic heart failur/ cardiorenal syndrome--poor response to diuretics. -For now continue Bumex, will consider a drip again, I think at this point he needs dialysis given continuing worsening of renal function and early sings of uremia 2.Elevated troponins:? chronic d/t CKD, 3. h/o Hypokalemia- K is normal 4.CKD 4 to 5 now, early uremia with twiches--Nephrology to consider dialysis, [facility] 5.Diabetes:uncontrolled : Continue Lantus and SS 6.Chronic AFib:? Rate controlled.? Hold Eliquis, continue amio cardio Code status:? Full code Quality Stroke Does the patient have a stroke diagnosis?: No VTE Prior VTE?: No VTE Risk Level:: Medical - moderate - high VTE Device Contraindication: Treatment Not Indicated VTE Drug Contraindication: N/A - Med Ordered
[2021-10-04] MEDS: Insulin Glargine,Hum.rec.anlog 100 UNIT/ML 10 ML VIAL 10 UNIT SUBCUT (10:17)
--- NOTE | 2021-10-04 11:25 | P.CONCA_ITS ---
History of Present Illness History of Present Illness Date of Service: 10/04/21 Chief complaint: Acute CHF Narrative: This is a cardiology consultation regarding congestive heart failure. This is very complicated patient with chronic systolic as well as diastolic heart failure at different times but most recently with recovered LVEF. He used to have mid range EF but then went down in the context of atrial fibrillation with rapid rate but subsequently improved to low normal range. He has had heart failure issues for years. He has a narrow therapeutic window with diuretics as he used to get syncopal with over-diuresis but fluid overloaded with lower doses. To difficulties managing his diuretic regimen, he also underwent a CardioMEMS procedure few weeks back. In spite of this, still continues to have heart failure symptoms and recurrent admissions. Most recently, he was in a hospital with congestive heart failure and diuretics were changed from torsemide to Bumex and eventually was discharged home on Bumex 3 mg b.i.d.. His CardioMEMS numbers in the last few days are 16, 15, 19, 17 at different times. Yesterday, it was 16 mm Hg with a PA mean of 25 mm Hg and a peak systolic pressure of 44 mm Hg. He was seen in the office by nurse practitioner and felt to be volume overloaded. Subsequently labs were drawn and the BUN and creatinine at gone up significantly and he was sent to the ER and admitted. He states that his shortness of breath is at baseline. However leg swelling is again higher than what was in the hospital but not profound. Some orthopnea type symptoms. Generalized weakness but that has been chronic. Review of Systems Review of Systems: Yes all other systems are reviewed and are negative Cardiovascular: Cardiovascular: Reports as per HPI, Reports no additional cardiovascular complaints, Denies acrocyanosis, Denies cool extremities, Denies painful fingertips, Denies chest pain, Denies chest pain at rest, Denies diaphoresis, Denies syncope, Denies irregular heart rhythm, Denies claudication, Reports leg edema, Denies lightheadedness, Denies palpitations and Reports dyspnea Respiratory: Respiratory: Reports dyspnea Neurologic: Denies syncope Endocrine: Endocrine: Denies palpitations COUNT INCLUDES THE [facility] Past Medical History Medical History CAD (coronary artery disease) Cardiomyopathy CKD (chronic kidney disease) stage 3, GFR 30-59 ml/min COVID-19 vaccine series completed Diabetic polyneuropathy associated with type 2 diabetes mellitus Dyslipidemia Essential hypertension History of cardioversion History of COVID-19 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 Obesity (BMI 30-39.9) SRINIVASA (obstructive sleep apnea) Presence of CardioMEMS HF system Family History Family History Father Heart disease Diabetes mellitus Mother Diabetes mellitus Surgical History Surgical History Hx of cardiac catheterization Hx of colonoscopy Social History Social History Household Members: Spouse Housing: Apartment Are you a primary pharmacy care coordinator to a significant other at home: No Do you presently have visiting nurse or other home services: No Alcohol intake: never Patient Tobacco Use Status: Former Tobacco user Quit Date: 1979 Tobacco use type: Cigarette Years Smoked: 33 e-Cigarette/Vaping Use: Never Used Second Hand Smoke Exposure: No Use of substances other than those prescribed or required for medical reasons: No Advance Directives: Yes Advance Directives on File: Yes Advance Directives Date on File: 10/04/21 service: No Current occupational status: unemployed and retired Meds Allergies Allergy/AdvReac Type Severity Reaction Status Date / Time No Known Allergies Allergy Verified 10/03/21 17:13 [No Known Allergies*] Active Medications: Current Medications Acetaminophen (Acetaminophen 325 Mg Tablet) 650 mg PO Q6H PRN PRN Reason: Pain, Mild (Pain Scale 1-3) Amiodarone HCl (Amiodarone Hcl 200 Mg Tablet) 200 mg PO DAILY@1200 KIM Atorvastatin Calcium (Atorvastatin Calcium 40 Mg Tablet) 40 mg PO BEDTIME [facility] Bicalutamide (Bicalutamide 50 Mg Tablet) 50 mg PO DAILY [facility] Last Admin: 10/04/21 09:00 Dose: 50 mg Documented by: Bumetanide (Bumetanide 1 Mg/4 Ml Vial) 3 mg IVPUSH BID [facility]; Protocol Last Admin: 10/04/21 09:06 Dose: Not Given Documented by: Dextrose (Dextrose 50 % 25 Gm/50 Ml Vial) 25 gm IVPUSH Q15M PRN; Protocol PRN Reason: per Hypoglycemia Standing Ord. Docusate Sodium (Docusate Sodium 100 Mg Capsule) 100 mg PO BID PRN PRN Reason: Constipation Glucose (Glucose Gel 15 Gm Gel..Gram.) 15 gm PO Q15M PRN; Protocol PRN Reason: per Hypoglycemia Standing Ord. Hydralazine HCl (Hydralazine Hcl 25 Mg Tablet) 25 mg PO TID [facility]; Protocol Last Admin: 10/04/21 09:02 Dose: Not Given Documented by: Insulin Glargine (Insulin Glargine,Hum.Rec.Anlog 100 Unit/Ml 10 Ml Vial) 10 unit SUBCUT DAILY [facility] Last Admin: 10/04/21 10:17 Dose: 10 unit Documented by: Insulin Human Lispro (Insulin Lispro 100 Unit/Ml 3 Ml Vial) 0 unit SUBCUT QIDACHS [facility]; Protocol Last Admin: 10/04/21 07:22 Dose: 4 unit Documented by: Melatonin (Melatonin 3 Mg Tablet) 6 mg PO BEDTIME PRN PRN Reason: Insomnia Nitroglycerin (Nitroglycerin 0.4 Mg Tab.Subl) 0.4 mg SUBLINGUAL Q5MX3 PRN PRN Reason: Chest Pain Omeprazole (Omeprazole 20 Mg Capsule.Dr) 20 mg PO DAILY@0630 [facility] Last Admin: 10/04/21 06:39 Dose: 20 mg Documented by: Pregabalin (Pregabalin 50 Mg Capsule) 50 mg PO DAILY [facility] Last Admin: 10/04/21 09:00 Dose: 50 mg Documented by: Senna (Sennosides 8.6 Mg Tablet) 17.2 mg PO BEDTIME PRN PRN Reason: Constipation Sodium Chloride (0.9 % Sodium Chloride Flush 3 Ml Syringe) 3 ml IVFLUSH QSHIFT [facility] Last Admin: 10/04/21 07:04 Dose: Not Given Documented by: Vitamin D (Cholecalciferol (Vitamin D3) 25 Mcg Tablet) 50 mcg PO DAILY@1200 [facility] Home Medications Medication Instructions Recorded Confirmed Last Taken Type blood sugar diagnostic #10 ea 05/13/21 10/03/21 10/03/21 History amiodarone 200 mg tablet 200 mg PO DAILY@1200 08/23/21 10/03/21 10/03/21 History atorvastatin 40 mg tablet 40 mg PO BEDTIME 08/23/21 10/03/21 10/02/21 History budesonide 90 mcg/actuation breath 2 puff INHALATION BID 08/23/21 10/03/2110/03/21 History activated powder inhaler (Pulmicort Flexhaler) cholecalciferol (vitamin D3) 50 50 mcg PO DAILY@1200 08/23/21 10/03/21 10/03/21 History mcg (2,000 unit) capsule (Vitamin D3) dulaglutide 1.5 mg/0.5 mL 1.5 mg SUBCUT WE 08/23/21 10/03/21 10/01/21 History subcutaneous pen injector (Trulicity) omeprazole 20 mg capsule,delayed 20 mg PO DAILY 08/23/21 10/03/21 10/03/21 History release docusate sodium 100 mg capsule 1 cap PO BID PRN 09/03/21 10/03/21 10/03/21 History hydralazine 25 mg tablet 1 tab PO TID 09/03/21 10/03/21 10/03/21 History lancets 33 gauge (TRUEplus Lancets) 09/03/21 10/03/21 10/03/21 History melatonin 3 mg tablet 1 tab PO BEDTIME PRN 09/03/21 10/03/21 10/02/21 History potassium chloride 20 mEq 2 tab PO DAILY@1200 09/16/21 10/03/21 10/03/21 History tablet,extended release(part/cryst) apixaban 5 mg tablet (Eliquis) 1 tab PO BID 10/03/21 10/03/21 10/03/21 History Physical Exam Vital Signs: Vital Signs: Last Vital Signs Temp 97.5 F 10/03/21 20:47 Pulse 74 10/04/21 11:01 Resp 18 10/04/21 11:01 BP 103/57 L 10/04/21 11:01 Pulse Ox 100 10/04/21 11:01 Body Mass Index 30.2 Const: General: cooperative and no acute distress HENMT: Other: Unremarkable Neck: Neck: Yes normal visual inspection Chest: Chest palpation & inspection: normal inspection of the chest Resp: Auscultation: crackles (inspiratory crackles) Cardio: Jugular venous distension: JVD Palpation: normal PMI Heart sounds: S1 normal heart sound present, S2 normal heart sound present, no gallops, no murmurs and no rubs GI: Palpation (GI): Soft to palpation Back/Spine/Pelvis: Other: unremarkable Skin: General skin exam: no rashes or lesions noted Neuro: Cranial nerves: Yes Other cranial nerve findings present Extrem: Other: 2+ B/L edema Psych: Mental Status: other Objective Labs and Meds Result diagrams: 10/04/21 06:01 10/04/21 06:01 Lab results: Laboratory Results - last 24 hr 10/03/21 10/03/21 10/03/21 17:42 17:42 17:43 WBC 10.6 RBC 3.83 L Hgb 9.9 L Hct 31.2 L MCV 81.5 MCH 25.8 L MCHC 31.7 RDW 16.9 H Plt Count 316 MPV 11.3 Immature Gran % (Auto) 0.5 H Neut % (Auto) 78.0 H Lymph % (Auto) 8.9 L [place] % (Auto) 11.0 Eos % (Auto) 1.2 Baso % (Auto) 0.4 Lymph # (Auto) 0.9 L [place] # (Auto) 1.2 Eos # (Auto) 0.1 Baso # (Auto) 0.0 Abs Immat Gran (auto) 0.05 H Absolute Neuts (auto) 8.3 Absolute Nucleated RBC 0.000 Nucleated RBC % (auto) 0.0 Sodium 126 L Potassium 3.5 Chloride 83 L Carbon Dioxide 30 H Anion Gap 17 BUN 124 H* Creatinine 3.93 H Estim Creat Clear Calc 13.1 Estimated GFR 15 POC Glucose Random Glucose 346 H Osmolality Calcium 8.4 D Magnesium Troponin I High Sens 645.0 H* D B-Natriuretic Peptide 1429 H Urine Osmolality Ur Random Sodium Urine Creatinine COVID-19 (KATY) COVID-19 Clin [facility] 10/03/21 10/03/21 10/03/21 19:29 20:43 20:44 WBC RBC Hgb Hct MCV MCH MCHC RDW Plt Count MPV Immature Gran % (Auto) Neut % (Auto) Lymph % (Auto) [place] % (Auto) Eos % (Auto) Baso % (Auto) Lymph # (Auto) [place] # (Auto) Eos # (Auto) Baso # (Auto) Abs Immat Gran (auto) Absolute Neuts (auto) Absolute Nucleated RBC Nucleated RBC % (auto) Sodium Potassium Chloride Carbon Dioxide Anion Gap BUN Creatinine Estim Creat Clear Calc Estimated GFR POC Glucose Random Glucose Osmolality 316 H Calcium Magnesium Troponin I High Sens 768.4 H* B-Natriuretic Peptide Urine Osmolality Ur Random Sodium Urine Creatinine COVID-19 (KATY) Negative COVID-19 Clin Com See Note 10/03/21 10/03/21 10/03/21 20:44 20:44 21:20 WBC RBC Hgb Hct MCV MCH MCHC RDW Plt Count MPV Immature Gran % (Auto) Neut % (Auto) Lymph % (Auto) [place] % (Auto) Eos % (Auto) Baso % (Auto) Lymph # (Auto) [place] # (Auto) Eos # (Auto) Baso # (Auto) Abs Immat Gran (auto) Absolute Neuts (auto) Absolute Nucleated RBC Nucleated RBC % (auto) Sodium Potassium Chloride Carbon Dioxide Anion Gap BUN Creatinine Estim Creat Clear Calc Estimated GFR POC Glucose 247 H Random Glucose Osmolality Calcium Magnesium Troponin I High Sens B-Natriuretic Peptide Urine Osmolality 286 L Ur Random Sodium < 20.0 Urine Creatinine 33.90 COVID-19 (KATY) COVID-19 Clin Com 10/04/21 10/04/21 10/04/21 06:01 06:01 06:01 WBC 10.1 RBC 3.83 L Hgb 9.9 L Hct 30.8 L MCV 80.4 MCH 25.8 L MCHC 32.1 RDW 16.8 H Plt Count 317 MPV 11.3 Immature Gran % (Auto) 0.4 Neut % (Auto) 71.3 Lymph % (Auto) 12.9 L [place] % (Auto) 12.6 H Eos % (Auto) 2.5 Baso % (Auto) 0.3 Lymph # (Auto) 1.3 [place] # (Auto) 1.3 H Eos # (Auto) 0.3 Baso # (Auto) 0.0 Abs Immat Gran (auto) 0.04 H Absolute Neuts (auto) 7.2 Absolute Nucleated RBC 0.000 Nucleated RBC % (auto) 0.0 Sodium 133 L Potassium 3.5 Chloride 87 L Carbon Dioxide 31 H Anion Gap 19 BUN 120 H* Creatinine 3.52 H Estim Creat Clear Calc 15.1 Estimated GFR 17 POC Glucose Random Glucose 207 H D Osmolality Calcium 8.8 Magnesium 2.5 Troponin I High Sens B-Natriuretic Peptide Urine Osmolality Ur Random Sodium Urine Creatinine COVID-19 (KATY) COVID-19 Clin Com 10/04/21 07:09 WBC RBC Hgb Hct MCV MCH MCHC RDW Plt Count MPV Immature Gran % (Auto) Neut % (Auto) Lymph % (Auto) [place] % (Auto) Eos % (Auto) Baso % (Auto) Lymph # (Auto) [place] # (Auto) Eos # (Auto) Baso # (Auto) Abs Immat Gran (auto) Absolute Neuts (auto) Absolute Nucleated RBC Nucleated RBC % (auto) Sodium Potassium Chloride Carbon Dioxide Anion Gap BUN Creatinine Estim Creat Clear Calc Estimated GFR POC Glucose 204 H Random Glucose Osmolality Calcium Magnesium Troponin I High Sens B-Natriuretic Peptide Urine Osmolality Ur Random Sodium Urine Creatinine COVID-19 (KATY) COVID-19 Clin Com ECG Interpretation: EKG with possible atrial fibrillation but could also be sinus with PACs. He has a baseline long MT and hence sometimes difficult to differentiate the 2. Imaging Radiologist's impression: Impressions Chest X-Ray 10/03/21 18:55 IMPRESSION: Small right pleural effusion. Bronchial wall thickening can be seen with a small airways process such as asthma or atypical/viral infection. This could also be associated with fluid overload. Assessment and Plan (1) Acute on chronic diastolic (congestive) heart failure: Status: Acute (2) PAF (paroxysmal atrial fibrillation): Status: Acute (3) Acute kidney injury superimposed on CKD: Status: Acute Most recent echocardiogram from July shows LVEF of 50-55%; advanced diastolic dysfunction. Labs from today with BUN of 120, creatinine of 3.5. Yesterday it was 4.2. Chloride is 87. Carbon dioxide 31. Cardiac BNP 14 29, somewhere close to where he normally runs. High sensitive troponins 645 and 768. Chest x-ray with a small right pleural effusion; no interstitial changes. CardioMEMS readings from yesterday with a PA systolic of 44, PA diastolic 16 and PA mean 25 mm Hg. The lowest PA diastolic is had in a while is 13 mm Hg where apparently he looked near euvolemic. This is a complicated case and I will discuss with [facility] heart failure service as to further plans. Will follow up with you. Procedures Date of Service Date of Service: 10/04/21
[2021-10-04] MEDS: Amiodarone HCL 200 MG TABLET PO (12:02)
[2021-10-04] MEDS: Cholecalciferol (Vitamin D3) 25 MCG TABLET 50 MCG PO (12:02)
[2021-10-04] MEDS: Bumetanide 1 MG/4 ML VIAL 3 MG IVPUSH (12:03)
[2021-10-04 12:14] LABS: Glucose, Whole Blood 216 mg/dL (60-115)
--- NOTE | 2021-10-04 13:03 | MHC.CM.PN ---
Met with patient, Debbie and glass polisher. Patient and Debbie live together. Patient ambulates with a walker/cane, and has [facility] since discharge on 09/22. PCP verified. Patient received Moderna vaccines on 01/09 and 02/06. HCP verified to be on file. IMM explained and signed. Debbie will transport patient home when medically stable. 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 Labs were drawn and kidney function was seen to have decreased. Patient was told to come to the ER. T/W explained CHF, CKD, diuretics and resp status, and medication adjustments. Walterlisseth verbalized understanding. Continue to monitor for d/c needs.
--- NOTE | 2021-10-04 14:40 | PM.CNNEP ---
History of Present Illness Reason for Consult Consult date: 10/04/21 Reason for consult: Worsening kidney function Requesting physician: Jas Dudley Chief Complaint Chief complaint: Weakness with walking History of Present Illness Narrative: Mr Enrique Menjivar is a 76 yo man with 15 years of type II DM and longstanding Htn. He has had CKD dating back several years. He had one Telehealth visit with Dr. Brody over a year ago and more recently saw EDUARDO Vogel while hospitalized here for decompensated CHF. Based on information available, the patient had significant problems with CHF and anasarca, volume overload. This led to placement of a cardiomems device. Based on data from this device, he undertook aggressive diuresis. By his report, he lost about 40 lbs over the past few months. He has continued to have a good appetite without nausea, vomiting, or anorexia. His serum creat in 2019 was 1.6-1.9, earlier this year varied significantly from 1.4 to 2.5 mg/dl or so. His ECHO shows an EF of about 50% with some diastolic dysfunction and preserved RV function. He was hospitalized here recently and discharged on 09/30. During that stay, he undertook diuresis. His discharge creat was. 3.5 or so. He is readmitted now based on his abnormal labs done yesterday showing a BUN of 120 and creat of 4. He, himself, feels fine, denies LYN or nausea, anorexia. He notes that he is weak in terms of walking. He denies orthostatic lightheadedness. He also has a hx of afib and is on eliquis and amiodarone. He has had no melena. His renal evaluation shows no significant proteinuria, normal sized kidneys by US, negative serologic workup, no paraprotein,normal complement levels. He recently was noted to have an elevated PSA and is in the process of evaluation for possible prostate CA. His bone scan 2 weeks ago was unremarkable. He had been discharged on bumex 3 mg bid on 09/30. He is not on THI I or ARB. Review of Systems Review of Systems weight loss 40 lbs over 4 months with diuresis no anorexia, nausea, vomiting no abd pain no GERD sx no melena or diarrhea leg edema persists but is better no orthopnea or PND neuropathy symptoms in his legs no headache, dizziness weakness in his legs PMFSH Past Medical History Medical History CAD (coronary artery disease) Cardiomyopathy CKD (chronic kidney disease) stage 3, GFR 30-59 ml/min COVID-19 vaccine series completed Diabetic polyneuropathy associated with type 2 diabetes mellitus Dyslipidemia Essential hypertension History of cardioversion History of COVID-19 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 Obesity (BMI 30-39.9) SRINIVASA (obstructive sleep apnea) Presence of CardioMEMS HF system Family History Family History Father Heart disease Diabetes mellitus Mother Diabetes mellitus Surgical History Surgical History Hx of cardiac catheterization Hx of colonoscopy Social History Social History Household Members: Spouse Housing: Apartment Are you a primary live in caregiver to a significant other at home: No Do you presently have visiting nurse or other home services: Yes (visiting nurse and physical therapy) Alcohol intake: never Patient Tobacco Use Status: Former Tobacco user Quit Date: 1979 Tobacco use type: Cigarette Years Smoked: 33 e-Cigarette/Vaping Use: Never Used Second Hand Smoke Exposure: No Advance Directives Date on File: 10/04/21 service: No Current occupational status: unemployed and retired Meds Allergies Allergy/AdvReac Type Severity Reaction Status Date / Time No Known Allergies Allergy Verified 10/03/21 17:13 [No Known Allergies*] Active Medications: Current Medications Acetaminophen (Acetaminophen 325 Mg Tablet) 650 mg PO Q6H PRN PRN Reason: Pain, Mild (Pain Scale 1-3) Amiodarone HCl (Amiodarone Hcl 200 Mg Tablet) 200 mg PO DAILY@1200 [facility] Last Admin: 10/04/21 12:02 Dose: 200 mg Documented by: Atorvastatin Calcium (Atorvastatin Calcium 40 Mg Tablet) 40 mg PO BEDTIME KIM Bicalutamide (Bicalutamide 50 Mg Tablet) 50 mg PO DAILY [facility] Last Admin: 10/04/21 09:00 Dose: 50 mg Documented by: Dextrose (Dextrose 50 % 25 Gm/50 Ml Vial) 25 gm IVPUSH Q15M PRN; Protocol PRN Reason: per Hypoglycemia Standing Ord. Docusate Sodium (Docusate Sodium 100 Mg Capsule) 100 mg PO BID PRN PRN Reason: Constipation Glucose (Glucose Gel 15 Gm Gel..Gram.) 15 gm PO Q15M PRN; Protocol PRN Reason: per Hypoglycemia Standing Ord. Dobutamine HCl/Dextrose (Dobutrex) 1,000 mg in 250 mls @ 2.629 mls/hr IVCONT .Q24H [facility] Last Admin: 10/04/21 12:44 Dose: 2.5 mcg/kg/min, 2.63 mls/hr Documented by: Insulin Glargine (Insulin Glargine,Hum.Rec.Anlog 100 Unit/Ml 10 Ml Vial) 10 unit SUBCUT DAILY [facility] Last Admin: 10/04/21 10:17 Dose: 10 unit Documented by: Insulin Human Lispro (Insulin Lispro 100 Unit/Ml 3 Ml Vial) 0 unit SUBCUT QIDACHS [facility]; Protocol Last Admin: 10/04/21 13:06 Dose: 4 unit Documented by: Melatonin (Melatonin 3 Mg Tablet) 6 mg PO BEDTIME PRN PRN Reason: Insomnia Nitroglycerin (Nitroglycerin 0.4 Mg Tab.Subl) 0.4 mg SUBLINGUAL Q5MX3 PRN PRN Reason: Chest Pain Omeprazole (Omeprazole 20 Mg Capsule.Dr) 20 mg PO DAILY@0630 [facility] Last Admin: 10/04/21 06:39 Dose: 20 mg Documented by: Pregabalin (Pregabalin 50 Mg Capsule) 50 mg PO DAILY [facility] Last Admin: 10/04/21 09:00 Dose: 50 mg Documented by: Senna (Sennosides 8.6 Mg Tablet) 17.2 mg PO BEDTIME PRN PRN Reason: Constipation Sodium Chloride (0.9 % Sodium Chloride Flush 3 Ml Syringe) 3 ml IVFLUSH QSHIFT [facility] Last Admin: 10/04/21 07:04 Dose: Not Given Documented by: Vitamin D (Cholecalciferol (Vitamin D3) 25 Mcg Tablet) 50 mcg PO DAILY@1200 [facility] Last Admin: 10/04/21 12:02 Dose: 50 mcg Documented by: Home Medications Medication Instructions Recorded Confirmed Last Taken Type blood sugar diagnostic #10 ea 05/13/21 10/03/21 10/03/21 History amiodarone 200 mg tablet 200 mg PO DAILY@1200 08/23/21 10/03/21 10/03/21 History atorvastatin 40 mg tablet 40 mg PO BEDTIME 08/23/21 10/03/21 10/02/21 History budesonide 90 mcg/actuation breath 2 puff INHALATION BID 08/23/21 10/03/21 10/03/21 History activated powder inhaler (Pulmicort Flexhaler) cholecalciferol (vitamin D3) 50 50 mcg PO DAILY@1200 08/23/21 10/03/21 10/03/21 History mcg (2,000 unit) capsule (Vitamin D3) dulaglutide 1.5 mg/0.5 mL 1.5 mg SUBCUT WE 08/23/21 10/03/21 10/01/21 History subcutaneous pen injector (Trulicity) omeprazole 20 mg capsule,delayed 20 mg PO DAILY 08/23/21 10/03/21 10/03/21 History release docusate sodium 100 mg capsule 1 cap PO BID PRN 09/03/21 10/03/21 10/03/21 History hydralazine 25 mg tablet 1 tab PO TID 09/03/21 10/03/21 10/03/21 History lancets 33 gauge (TRUEplus Lancets) 09/03/21 10/03/21 10/03/21 History melatonin 3 mg tablet 1 tab PO BEDTIME PRN 09/03/21 10/03/21 10/02/21 History potassium chloride 20 mEq 2 tab PO DAILY@1200 09/16/21 10/03/21 10/03/21 History tablet,extended release(part/cryst) apixaban 5 mg tablet (Eliquis) 1 tab PO BID 10/03/21 10/03/21 10/03/21 History Physical Exam Vital Signs: Last Vital Signs Temp 97.7 F 10/04/21 13:41 Pulse 82 10/04/21 13:41 Resp 14 10/04/21 13:41 BP 112/49 L 10/04/21 13:41 Pulse Ox 98 10/04/21 13:41 Body Mass Index 30.1 Const Orientation/consciousness: oriented to person, oriented to place and oriented to time HENMT Other: normal exam Neck Neck: Yes normal visual inspection, Yes full ROM and Yes no lymphadenopathy Thyroid: Thyroid normal Carotids: normal carotid upstroke Chest Chest palpation & inspection: normal inspection of the chest Resp Effort & Inspection: normal respiratory effort and able to speak in complete sentences Auscultation: clear to auscultation bilaterally Percussion: percussion normal Cardio Jugular venous distension: no JVD Palpation: normal PMI Rate: regular rate Rhythm: regular rhythm Heart sounds: S1 normal heart sound present and Normal, physiologic split S2 sound present GI Palpation (GI): No hepatosplenomegaly present and Bladder palpation abnormal Percussion: Yes normal to percussion Auscultation: normal bowel sounds General: Yes Bladder palpation abnormal Skin General skin exam: no rashes or lesions noted Neuro General: oriented to person, oriented to place, oriented to time, no focal motor deficits and CN's II-XI intact bilaterally Extrem General: Yes edema Results Lab Results Result Diagrams: 10/04/21 06:01 10/04/21 06:01 Lab results: Chemistry 10/03/21 10/04/21 17:42 06:01 Sodium 126 L 133 L Potassium 3.5 3.5 Carbon Dioxide 30 H 31 H BUN 124 H* 120 H* Creatinine 3.93 H 3.52 H Calcium 8.4 D 8.8 Hematology 10/03/21 10/04/21 17:43 06:01 WBC 10.6 10.1 Hgb 9.9 L 9.9 L Plt Count 316 317 Urine Studies 10/03/21 10/03/21 20:44 20:44 Urine Osmolality 286 L Urine Creatinine 33.90 Assessment and Plan (1) Acute kidney injury superimposed on CKD: Status: Acute (2) CKD (chronic kidney disease) stage 4, GFR 15-29 ml/min: Status: Acute (3) Chronic heart failure with preserved ejection fraction (HFpEF): Status: Acute (4) Essential hypertension: Status: Acute (5) Hypokalemia: Status: Acute (6) Weakness: Status: Acute (7) Anemia: Status: Acute Jonathan is here due to elevated BUN and creat. In my opinion, he is hypovolemic on examination contributing to his lower BP, weakness with walking (likely orthostatic). He does have a Cardiomems which shows a Pa pressure of 16. Despite that, I would consider gentle IVF tonight, withhold all diuretics. He actually has a good EF, so it is not clear to me that he needs dobutamine support; rather some IVF might me needed I believe he has severe advanced CKD stage 4-5 which contributed to significant hypervolemia a few months ago resulting in diuresis and 40 lb fluid weight loss. In this setting, his serum creatinine went from 2 to 3.5 once he became euvolemic. The etiology of his CKD is unclear. He does not have significant proteinuria to support DKD. Serologies are negative. CRS and or/nephrosclerosis are both possible. Ischemic renal disease due to LILIANE should be rule out by RA doppler His anemia is likely anemia of CKD; but we should check iron stores, B12, folate and consider starting CHANCE. with high BUN and being on eliquis, check stools for occult blood as this could also contribute to high BUN Would replete his potassium now He has weakness in his legs but really no other uremic symptoms Presently, he does not appear to be in decompensated CHF Lets'give gentle fluids; once creat at best baseline, then check 24 hrour urine for creat and urea clearance No need for SOUND DESIGNER at this time Procedures Date of Service Date of Service: 10/04/21
[2021-10-04 16:01] LABS: Glucose, Whole Blood 229 mg/dL (60-115)
[2021-10-04] MEDS: 0.9 % Sodium Chloride Flush 3 ML SYRINGE IVFLUSH ×2 (16:02→20:14)
[2021-10-04 20:09] LABS: Glucose, Whole Blood 262 mg/dL (60-115)
[2021-10-04] MEDS: Atorvastatin Calcium 40 MG TABLET PO (20:13)
--- NOTE | 2021-10-04 22:38 | P.PNCC_ITS ---
Subjective Subjective Date of Service: 10/04/21 Interval History: Mr. Enrique Menjivar was transferred to the ICU this afternoon for advanced heart failure management with a dobutamine infusion. The patient is a 76 yo M with past medical history of hypertension, hyperlipidemia, diabetes, CAD, systolic and severe diastolic CHF with a CardioMEMS HS system, and afib on Eliquis.? He?s had recurrent admissions for CHF.? According to Dr. Dudley, he has a narrow therapeutic window with diuretics, as he used to get syncopal with over-diuresis but fluid overloaded with lower doses. Last echo 07/30/2021 showed EF 50-55%, w severe diastolic dysfunction, [id number] MR, supposedly normal RV size and fxn, RVSP estimate of 34mm, and normal IVC. The patient was recently hospitalized here at [place] from 09/16-09/30 for heart failure.? He was diuresed 7-8 Liters over his 14 day stay.? His condition was slow to improve and complicated by acute on chronic kidney disease with creatinine up to 3.38 at discharge.? He had previously been on torsemide 40 mg bid.? He was discharged on Bumex 3 mg bid.? He was clinically and symptomatically improved at a PAD reading of 13 mm via his CardioMEMS device.? Since discharge his PAD has increased and at his f/u office visit yesterday, it was 16 mm.? In the office he had bibasilar rales, JVD, pitting edema in his legs, and reported orthopnea, PND, and extreme fatigue.? His creat was up to 4.1, so he was referred to the ED for admission. In the ED, he was reported to have 4+ pitting edema.? Wt was up to 70 kg, from 65 kg at discharge earlier this week. ?Labs were notable for BUN/creat 124/3.9, glucose 346, BNP 1429 (down from 1960 at dischg).? The patient was given IV Bumex and admitted to Medicine.? Dr. Dudley called me today and requested admission to the ICU for a dobutamine infusion. On my exam, the patient was fully awake and alert and appropriate.? I saw him a couple of hours after the dobutamine was started at 2.5 mcg.? Heart rate was high 70s, atrial fibrillation, and stable.? Blood pressure was about 110/50, and stable compared with his pre-dobutamine level.? The patient was breathing easy w ith sat 98-100%.? He was afebrile.? Overall, he looks thin, possibly malnourished.? He had plump jugular venous distension to the angle of the mandible, sitting up at 30-40 degrees.? Chest was clear to auscultation, with a normal expiratory phase.? Heart rate and rhythm were irregular, with normal-s ounding S1 and S2, with no murmur or gallop that I heard.? Abdomen was strikingly rotund, very suggestive of ascites, although I could not clearly discern a fluid wave.? The patient said that his belly does go up and down.? I also note that a chest CT on September 25 showed trace abdominal ascites, while and abdominal ultrasound in June showed no free fluid.? He currently has less than 1+ central edema, no pretibial edema, and trace ankle edema. LABORATORY DATA:? Below.? Notably, BUN/creatinine this morning were down to 120/3.5. My bedside ECHOCARDIOGRAM:? Image quality:? Good.? Findings: 1. At least moderate LVH. ? 2. Left ventricular size is normal.? There is mild-mod global LV dysfunction.? Estimation of ejection fraction is complicated by the severity of his LVH, but looks to me to be about 30%. 3. RV size is either top-normal or mildly enlarged, depending on the view.? In my estimation, RV:LV cavity ratio is 1:1. 4. Atria not assessed. 5. AV not adequately assessed.? No AI by color flow. 6. Mitral valve morphologically normal.? 2+ MR by color flow. 7. Tricuspid valve morphologically normal.? At least 3+ MR by color flow.? Continuous wave Doppler envelope measured at least 2.9 m/sec.? Gradient 33mm. 8. IVC measured 1.7cm, with no inspiratory collapse.? CVP estimate 12mm.? RVSP estimate 45mm. IMPRESSION: 1. Mild-moderate systolic heart failure, with severe diastolic heart failure. 2. Right heart failure.? Regardless of the echo, there is no question that clinically the patient has right heart failure, given his edema, jugular venous distension, and the primacy of fatigue in his symptoms. ?The significance of his right heart failure may be underestimated, or his severe diastolic fxn may cause a ?mimic? of right heart failure.? Certainly it more classic for patients with severe right heart failure to walk that ?knife edge? of too much diuresis vs too little diuresis.? But in such cases, the RV is usually much bigger. 3. Acute on chronic kidney disease.? Question is, is this worsening intrinsic renal disease (from his DM and HTN), or is worsening heart disease making his renal fxn worse (ie. cardiorenal), or is something else going on. ?Discussed at length with both Dr. Kulkarni and Dr. Dudley.? Given the JVD and the echo findings, we will not give fluids, but we will also hold the diuretics. 4. Cardiorenal syndrome.? More typical of right heart failure, FWIW. 5. Afib.? On amidarone and Eliquis. 6. DM.? On Lantus and SS insulin. 7. Looks to me to have at least mild protein calorie malnutrition.? I?ll check an albumin level. 8. On pregabalin.? May need to reduce his dose, given his renal fxn. Prognosis is guarded.? If deteriorates or fails to improve, will plan transfer to [facility] heart failure service. Critical care time (including extended chart rev, and mult d/w Dr. Dudley:? 110+ min. Critical Care Time (minutes): 110 Physical Exam Vital Signs: Vital Signs: Last Vital Signs Temp 97.5 F 10/04/21 20:00 Pulse 81 10/04/21 22:00 Resp 16 10/04/21 22:00 BP 114/53 L 10/04/21 22:00 Pulse Ox 95 10/04/21 22:00 Body Mass Index 30.1 Objective Data Labs CBC & Chem 7: 10/04/21 06:01 10/04/21 06:01 Labs: Laboratory Results - last 24 hr 10/04/21 10/04/21 10/04/21 06:01 06:01 06:01 WBC 10.1 RBC 3.83 L Hgb 9.9 L Hct 30.8 L MCV 80.4 MCH 25.8 L MCHC 32.1 RDW 16.8 H Plt Count 317 MPV 11.3 Immature Gran % (Auto) 0.4 Neut % (Auto) 71.3 Lymph % (Auto) 12.[address] [place] % (Auto) 12.6 H Eos % (Auto) 2.5 Baso % (Auto) 0.3 Lymph # (Auto) 1.3 [place] # (Auto) 1.3 H Eos # (Auto) 0.3 Baso # (Auto) 0.0 Abs Immat Gran (auto) 0.04 H Absolute Neuts (auto) 7.2 Absolute Nucleated RBC 0.000 Nucleated RBC % (auto) 0.0 Sodium 133 L Potassium 3.5 Chloride 87 L Carbon Dioxide 31 H Anion Gap 19 BUN 120 H* Creatinine 3.52 H Estim Creat Clear Calc 15.1 Estimated GFR 17 POC Glucose Random Glucose 207 H D Calcium 8.8 Magnesium 2.5 10/04/21 10/04/21 10/04/21 07:09 12:03 15:59 WBC RBC Hgb Hct MCV MCH MCHC RDW Plt Count MPV Immature Gran % (Auto) Neut % (Auto) Lymph % (Auto) [place] % (Auto) Eos % (Auto) Baso % (Auto) Lymph # (Auto) [place] # (Auto) Eos # (Auto) Baso # (Auto) Abs Immat Gran (auto) Absolute Neuts (auto) Absolute Nucleated RBC Nucleated RBC % (auto) Sodium Potassium Chloride Carbon Dioxide Anion Gap BUN Creatinine Estim Creat Clear Calc Estimated GFR POC Glucose 204 H 216 H 229 H Random Glucose Calcium Magnesium 10/04/21 20:06 WBC RBC Hgb Hct MCV MCH MCHC RDW Plt Count MPV Immature Gran % (Auto) Neut % (Auto) Lymph % (Auto) [place] % (Auto) Eos % (Auto) Baso % (Auto) Lymph # (Auto) [place] # (Auto) Eos # (Auto) Baso # (Auto) Abs Immat Gran (auto) Absolute Neuts (auto) Absolute Nucleated RBC Nucleated RBC % (auto) Sodium Potassium Chloride Carbon Dioxide Anion Gap BUN Creatinine Estim Creat Clear Calc Estimated GFR POC Glucose 262 H Random Glucose Calcium Magnesium Quality Stroke Does the patient have a stroke diagnosis?: No VTE Prior VTE?: No VTE Risk Level:: Medical - moderate - high VTE Device Contraindication: Treatment Not Indicated VTE Drug Contraindication: N/A - Med Ordered Critical Care Time Critical Care Time (minutes): 120
[2021-10-05] VITALS (20 sets, daily range): BP systolic 87–116; BP diastolic 43–61; PULSE 79–92; RESP 13–24; TEMP 36.4–37; O2SAT 95–100; BMI 30.4
[2021-10-05] MEDS: Acetaminophen 325 MG TABLET 650 MG PO (00:18)
[2021-10-05 05:22] LABS: VBG Base Excess 13.7 mmol/L; VBG HCO3 35 mmol/L (22-26); VBG pCO2 35 mmHg; VBG pH 7.61 (7.32-7.43); VBG pO2 61 mmHg
[2021-10-05 05:25] LABS: VBG Base Excess 13.1 mmol/L; VBG HCO3 34 mmol/L (22-26); VBG pCO2 33 mmHg; VBG pH 7.62 (7.32-7.43); VBG pO2 66 mmHg
[2021-10-05] MEDS: Omeprazole 20 MG CAPSULE.DR PO (05:34)
[2021-10-05 05:42] LABS: Lactic Acid 1.1 mmol/L (0.5-2.0)
[2021-10-05 05:43] LABS: Venous Blood Gas Refer to POC result
[2021-10-05 05:51] LABS: B Type Natriuretic Peptide 1940 pg/mL (<100)
[2021-10-05 05:54] LABS: Alanine Aminotransferase 26 U/L (0-40); Albumin Level 3.3 g/dL (3.5-5.0); Alkaline Phosphatase 117 U/L (39-117); Anion Gap 22 (12-20); Aspartate Amino Transferase 26 U/L (5-37); Bilirubin Total 1.5 mg/dL (0.0-1.0); Blood Urea Nitrogen 120 mg/dL (9-16); Calcium 8.9 mg/dL (8.4-10.2); Carbon Dioxide 28 mmol/L (22-29); Chloride 88 mmol/L (96-108); Creatinine Clr Calc Pharmacy 15.6; Estimated Glomerular Filt Rate 18; Glucose Random 227 mg/dL (60-115); Magnesium 2.4 mg/dL (1.6-2.6); Phosphorus 4.4 mg/dL (2.7-4.5); Potassium 3.5 mmol/L (3.3-5.1); Sodium 134 mmol/L (135-145); Total Protein 6.2 g/dL (6.5-8.0)
[2021-10-05 07:16] LABS: Glucose, Whole Blood 205 mg/dL (60-115)
[2021-10-05] MEDS: 0.9 % Sodium Chloride Flush 3 ML SYRINGE IVFLUSH ×2 (08:07→15:01)
[2021-10-05] MEDS: Apixaban 5 MG TABLET PO ×2 (08:15→21:11)
[2021-10-05] MEDS: Bicalutamide 50 MG TABLET PO (08:15)
[2021-10-05] MEDS: Pregabalin 50 MG CAPSULE PO (08:15)
[2021-10-05] MEDS: Insulin Glargine,Hum.rec.anlog 100 UNIT/ML 10 ML VIAL 10 UNIT SUBCUT (08:15)
[2021-10-05] MEDS: Insulin Lispro 100 UNIT/ML 3 ML VIAL SUBCUT ×4 (08:16→21:11)
--- NOTE | 2021-10-05 10:57 | PM.PNCARD ---
Subjective Subjective Date of Service: 10/05/21 Interval history: He states that he feels better. Less short of breath. Review of Systems Review of Systems Yes all other systems are reviewed and are negative Cardiovascular: Reports as per HPI, Reports no additional cardiovascular complaints, Denies acrocyanosis, Denies cool extremities, Denies painful fingertips, Denies chest pain, Denies chest pain at rest, Denies diaphoresis, Denies syncope, Denies irregular heart rhythm, Denies claudication, Reports leg edema, Denies lightheadedness, Denies palpitations and Reports dyspnea Respiratory: Reports dyspnea Denies syncope Endocrine: Denies palpitations Physical Exam Vital Signs: Last Vital Signs Temp 97.8 F 10/05/21 08:00 Pulse 85 10/05/21 10:00 Resp 16 10/05/21 08:49 BP 107/53 L 10/05/21 10:00 Pulse Ox 100 10/05/21 10:00 Body Mass Index 30.4 Const General: cooperative and no acute distress HENMI Other: Unremarkable Neck Neck: Yes normal visual inspection Chest Chest palpation & inspection: normal inspection of the chest Resp Auscultation: crackles (inspiratory crackles) Cardio Jugular venous distension: JVD Palpation: normal PMI Heart sounds: S1 normal heart sound present, S2 normal heart sound present, no gallops, Murmur heart sound present (2/6 TERE aortic area) and no rubs GI Palpation (GI): Soft to palpation Back/Spine/Pelvis Other: unremarkable Skin General skin exam: no rashes or lesions noted Neuro Cranial nerves: Yes Other cranial nerve findings present Extrem Other: Trace to 1 + edema Psych Mental Status: other Objective Labs and Meds Result diagrams: 10/04/21 06:01 10/05/21 05:10 Lab results: Laboratory Results - last 24 hr 10/04/21 10/04/21 10/04/21 12:03 15:59 20:06 VBG pH VBG pCO2 VBG pO2 VBG HCO3 VBG O2 Saturation VBG Base Excess Sodium Potassium Chloride Carbon Dioxide Anion Gap BUN Creatinine Estim Creat Clear Calc Estimated GFR POC Glucose 216 H 229 H 262 H Random Glucose Lactic Acid Calcium Phosphorus Magnesium Total Bilirubin AST ALT Alkaline Phosphatase B-Natriuretic Peptide Total Protein Albumin 10/05/21 10/05/21 10/05/21 05:10 05:10 05:10 VBG pH VBG pCO2 VBG pO2 VBG HCO3 VBG O2 Saturation VBG Base Excess Sodium 134 L Potassium 3.5 Chloride 88 L Carbon Dioxide 28 Anion Gap 22 H BUN 120 H* Creatinine 3.39 H Estim Creat Clear Calc 15.6 Estimated GFR 18 POC Glucose Random Glucose 227 H Lactic Acid 1.1 Calcium 8.9 Phosphorus 4.4 Magnesium 2.4 Total Bilirubin 1.5 H AST 26 ALT 26 Alkaline Phosphatase 117 D B-Natriuretic Peptide 1940 H Total Protein 6.2 L Albumin 3.3 L 10/05/21 10/05/21 10/05/21 05:15 05:19 07:12 VBG pH 7.61 H* 7.62 H* VBG pCO2 35 33 VBG pO2 61 66 VBG HCO3 35 H 34 H VBG O2 Saturation 89.0 93.0 VBG Base Excess 13.7 13.1 Sodium Potassium Chloride Carbon Dioxide Anion Gap BUN Creatinine Estim Creat Clear Calc Estimated GFR POC Glucose 205 H Random Glucose Lactic Acid Calcium Phosphorus Magnesium Total Bilirubin AST ALT Alkaline Phosphatase B-Natriuretic Peptide Total Protein Albumin Imaging Radiologist's impression: Impressions Renal Ultrasound 10/05/21 09:15 IMPRESSION: Elevated velocities appreciated within the proximal right main renal artery suggesting possible hemodynamically significant stenosis. Unfortunately, today's examination is appreciably limited due to overlying bowel gas. Given these findings, further evaluation can be obtained with CTA imaging of the abdomen as clinically indicated. Progress Note: A&P Assessment and plan (1) Acute on chronic diastolic (congestive) heart failure: Status: Acute (2) PAF (paroxysmal atrial fibrillation): Status: Acute (3) Acute kidney injury superimposed on CKD: Status: Acute Assessment and Plan: Most recent echocardiogram from July shows LVEF of 50-55%; advanced diastolic dysfunction. Labs from today with BUN of 120, creatinine of 3.39. On wednesday, it was 4.2. Chloride is 87. Carbon dioxide 31. Cardiac BNP 1940, somewhat variable readings in past. High sensitive troponins 645 and 768. Chest x-ray with a small right pleural effusion; no interstitial changes. CardioMEMS readings from today with a PA systolic of 46, PA diastolic 15 and PA mean 29 mm Hg. The lowest PA diastolic is had in a while is 13 mm Hg where apparently he looked near euvolemic. After discussion with [facility] heart failure service, he was started on dobutamine drip. May continue. Has not received any further diuretics after as today morning. Clinically only minimal swelling in his legs. JVD still elevated but seems improved from yesterday. Blood pressure is stable. Based on input/output chart, he is about 600 cc negative so for. Final diuretic regime yet to be decided. Will follow with you in am. Hold diuretics today. Fall Risk Details Current Medications: Current Medications Acetaminophen (Acetaminophen 325 Mg Tablet) 650 mg PO Q6H PRN PRN Reason: Pain, Mild (Pain Scale 1-3) Last Admin: 10/05/21 00:18 Dose: 650 mg Documented by: Amiodarone HCl (Amiodarone Hcl 200 Mg Tablet) 200 mg PO DAILY@1200 [facility] Last Admin: 10/04/21 12:02 Dose: 200 mg Documented by: Apixaban (Apixaban 5 Mg Tablet) 5 mg PO BID [facility] Last Admin: 10/05/21 08:15 Dose: 5 mg Documented by: Atorvastatin Calcium (Atorvastatin Calcium 40 Mg Tablet) 40 mg PO BEDTIME [facility] Last Admin: 10/04/21 20:13 Dose: 40 mg Documented by: Bicalutamide (Bicalutamide 50 Mg Tablet) 50 mg PO DAILY [facility] Last Admin: 10/05/21 08:15 Dose: 50 mg Documented by: Dextrose (Dextrose 50 % 25 Gm/50 Ml Vial) 25 gm IVPUSH Q15M PRN; Protocol PRN Reason: per Hypoglycemia Standing Ord. Docusate Sodium (Docusate Sodium 100 Mg Capsule) 100 mg PO BID PRN PRN Reason: Constipation Glucose (Glucose Gel 15 Gm Gel..Gram.) 15 gm PO Q15M PRN; Protocol PRN Reason: per Hypoglycemia Standing Ord. Dobutamine HCl/Dextrose (Dobutrex) 1,000 mg in 250 mls @ 2.629 mls/hr IVCONT .Q24H [facility] Last Infusion: 10/04/21 18:28 Dose: 5 mcg/kg/min, 5.26 mls/hr Documented by: Insulin Glargine (Insulin Glargine,Hum.Rec.Anlog 100 Unit/Ml 10 Ml Vial) 10 unit SUBCUT DAILY [facility] Last Admin: 10/05/21 08:15 Dose: 10 unit Documented by: Insulin Human Lispro (Insulin Lispro 100 Unit/Ml 3 Ml Vial) 0 unit SUBCUT QIDACHS [facility]; Protocol Last Admin: 10/05/21 08:16 Dose: 4 unit Documented by: Melatonin (Melatonin 3 Mg Tablet) 6 mg PO BEDTIME PRN PRN Reason: Insomnia Nitroglycerin (Nitroglycerin 0.4 Mg Tab.Subl) 0.4 mg SUBLINGUAL Q5MX3 PRN PRN Reason: Chest Pain Omeprazole (Omeprazole 20 Mg Capsule.) 20 mg PO DAILY@0630 [facility] Last Admin: 10/05/21 05:34 Dose: 20 mg Documented by: Pregabalin (Pregabalin 50 Mg Capsule) 50 mg PO DAILY [facility] Last Admin: 10/05/21 08:15 Dose: 50 mg Documented by: Senna (Sennosides 8.6 Mg Tablet) 17.2 mg PO BEDTIME PRN PRN Reason: Constipation Sodium Chloride (0.9 % Sodium Chloride Flush 3 Ml Syringe) 3 ml IVFLUSH QSHIFT [facility] Last Admin: 10/05/21 08:07 Dose: 3 ml Documented by: Vitamin D (Cholecalciferol (Vitamin D3) 25 Mcg Tablet) 50 mcg PO DAILY@1200 [facility] Last Admin: 10/04/21 12:02 Dose: 50 mcg Documented by: Time Spent With Patient Time: Total time spent is greater than 50% in coordination of care (as documented) at patient's floor/unit and/or counseling patient: Time with patient: less than 15 minutes Progress Note: Quality Stroke Does the patient have a stroke diagnosis?: No Procedures Date of Service Date of Service: 10/05/21
[2021-10-05 11:14] LABS: Glucose, Whole Blood 235 mg/dL (60-115)
[2021-10-05] MEDS: Amiodarone HCL 200 MG TABLET PO (11:15)
[2021-10-05] MEDS: Cholecalciferol (Vitamin D3) 25 MCG TABLET 50 MCG PO (11:15)
--- NOTE | 2021-10-05 12:24 | PM.PNNEP ---
Subjective Subjective Date of Service: 10/05/21 Interval history: stable overnight remains on dobutamine Physical Exam Vital Signs: Vital Signs: Last Vital Signs Temp 97.5 F 10/05/21 11:56 Pulse 90 10/05/21 11:56 Resp 24 H 10/05/21 11:56 BP 95/53 L 10/05/21 11:56 Pulse Ox 95 10/05/21 11:56 Body Mass Index 30.4 Const: Other: weakness but unchanged General: cooperative and no acute distress Orientation/consciousness: oriented to person, oriented to place and oriented to time Neck: Other: NO JVD Neck: Yes normal visual inspection, Yes full ROM and Yes no lymphadenopathy Thyroid: Thyroid normal Carotids: normal carotid upstroke Chest: Chest palpation & inspection: normal inspection of the chest Resp: Other: no rales Effort & Inspection: normal respiratory effort and able to speak in complete sentences Auscultation: clear to auscultation bilaterally and crackles (inspiratory crackles) Percussion: percussion normal Cardio: Jugular venous distension: JVD Palpation: normal PMI Rate: regular rate Rhythm: regular rhythm Heart sounds: S2 normal heart sound present, no gallops and no rubs GI: Palpation (GI): Soft to palpation, No hepatosplenomegaly present and Bladder palpation abnormal Percussion: Yes normal to percussion Auscultation: normal bowel sounds : General: Yes Bladder palpation abnormal Skin: General skin exam: no rashes or lesions noted Neuro: General: oriented to person, oriented to place, oriented to time, no focal motor deficits and CN's II-XI intact bilaterally Cranial nerves: Yes Other cranial nerve findings present Extrem: Other: trace pretib edema General: Yes edema Psych: Mental Status: other Objective Data Labs CBC & Chem 7: 10/04/21 06:01 10/05/21 05:10 Labs: Laboratory Results - last 24 hr 10/04/21 10/04/21 10/05/21 15:59 20:06 05:10 VBG pH VBG pCO2 VBG pO2 VBG HCO3 VBG O2 Saturation VBG Base Excess Sodium 134 L Potassium 3.5 Chloride 88 L Carbon Dioxide 28 Anion Gap 22 H BUN 120 H* Creatinine 3.39 H Estim Creat Clear Calc 15.6 Estimated GFR 18 POC Glucose 229 H 262 H Random Glucose 227 H Lactic Acid Calcium 8.9 Phosphorus 4.4 Magnesium 2.4 Total Bilirubin 1.5 H AST 26 ALT 26 Alkaline Phosphatase 117 D B-Natriuretic Peptide Total Protein 6.2 L Albumin 3.3 L 10/05/21 10/05/21 10/05/21 05:10 05:10 05:15 VBG pH 7.61 H* VBG pCO2 35 VBG pO2 61 VBG HCO3 35 H VBG O2 Saturation 89.0 VBG Base Excess 13.7 Sodium Potassium Chloride Carbon Dioxide Anion Gap BUN Creatinine Estim Creat Clear Calc Estimated GFR POC Glucose Random Glucose Lactic Acid 1.1 Calcium Phosphorus Magnesium Total Bilirubin AST ALT Alkaline Phosphatase B-Natriuretic Peptide 1940 H Total Protein Albumin 10/05/21 10/05/21 10/05/21 05:19 07:12 11:11 VBG pH 7.62 H* VBG pCO2 33 VBG pO2 66 VBG HCO3 34 H VBG O2 Saturation 93.0 VBG Base Excess 13.1 Sodium Potassium Chloride Carbon Dioxide Anion Gap BUN Creatinine Estim Creat Clear Calc Estimated GFR POC Glucose 205 H 235 H Random Glucose Lactic Acid Calcium Phosphorus Magnesium Total Bilirubin AST ALT Alkaline Phosphatase B-Natriuretic Peptide Total Protein Albumin Procedures Date of Service Date of Service: 10/05/21 Assessment & Plan Assessment and plan (1) Acute kidney injury superimposed on CKD: Status: Acute Assessment and Plan: The patient left with creat 3.3 or so and his creat is essentially the same: 3.8. No signif change in eGFR. He is more azotemic than at discharge a few days ago. This could represent relative vol contraction vs increase in urea source such as occult GIB. He is not uremic clinically. Would also rule out occult LILIANE. (2) Hypokalemia: Status: Acute Assessment and Plan: Pt remains hypokalemic: this may be due to the kaliuresis accompanying excretion of bicarbonate in metabolic alkalosis, secondary aldosteronism: would replete KCL with 40 meq today. When any diuretic regimen is resumed, he may benefit from addition of spironolactone with careful monitoring of potassium (3) Metabolic alkalosis: Status: Acute Assessment and Plan: His venous abg shows an extremely high pH; let's get an arterial ABG; if pH is > than 7.5, would give diamox and gentle chloride repletion in the form of KCL and gently Normal saline;check urine chloride to assess whether this is a chloride sensistive alkalosis (4) Essential hypertension: Status: Acute Assessment and Plan: Rule out occult LILIANE (5) CKD (chronic kidney disease) stage 3, GFR 30-59 ml/min: Status: Acute Assessment and Plan: 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
[2021-10-05 12:44] LABS: ABG Base Excess 10.2 mmol/L; ABG HCO3 32 mmol/L (22-26); ABG pCO2 33 mmHg (32-45); ABG pCO2 TC 32 mmHg (32-45); ABG pH 7.59 (7.35-7.45); ABG pO2 89 mmHg (83-108); ABG pO2 TC 86 (83-108)
[2021-10-05] MEDS: acetaZOLAMIDE 250 MG TABLET 500 MG PO ×2 (14:10→21:11)
--- NOTE | 2021-10-05 14:50 | P.PNCC_ITS ---
Subjective Subjective Date of Service: 10/05/21 Interval History: Mr. Enrique Menjivar was transferred to the ICU yesterday afternoon for advanced heart failure management with a dobutamine infusion. The patient is a 76 yo M with past medical history of hypertension, hyperlipidemia, diabetes, CAD, systolic and severe diastolic CHF with a CardioMEMS HS system, and afib on Eliquis.? He?s had recurrent admissions for CHF.? According to Dr. Dudley, he has a narrow therapeutic window with diuretics, as he used to get syncopal with over-diuresis but fluid overloaded with lower doses. Last echo 07/30/2021 showed EF 50-55%, w severe diastolic dysfunction, [id number] MR, supposedly normal RV size and fxn, RVSP estimate of 34mm, and normal IVC. The patient was recently hospitalized here at [place] from 09/16-09/30 for heart failure.? He was diuresed 7-8 Liters over his 14 day stay.? His condition was slow to improve and complicated by acute on chronic kidney disease with creatinine up to 3.38 at discharge.? He had previously been on torsemide 40 mg bid.? He was discharged on Bumex 3 mg bid.? He was clinically and symptomatically improved at a PAD reading of 13 mm via his CardioMEMS device.? Since discharge his PAD has increased and at his f/u office visit on Oct 03, it was 16 mm.? In the office he had bibasilar rales, JVD, pitting edema in his legs, and reported orthopnea, PND, and extreme fatigue.? His creat was up to 4.1, so he was referred to the ED for admission. In the ED, he was reported to have 4+ pitting edema.? Wt was up to 70 kg, from 65 kg at discharge earlier this week. ?Labs were notable for BUN/creat 124/3.9, glucose 346, BNP 1429 (down from 1960 at dischg).? The patient was given IV Bumex and admitted to Medicine.? Dr. Dudley requested transfer to the ICU for a dobutamine infusion. On my exam yesterday, he was was fully awake and alert and appropriate.? He was comfortable and breathing easy, w SpO2 98-100% on room air.? He had plump jugular venous distension to the angle of the mandible.? Chest was clear to ausc ultation. ?Abdomen was strikingly rotund, very suggestive of ascites, although I could not clearly discern a fluid wave.? The patient said that his belly does go up and down.? (A chest CT on September 25 showed trace abdominal ascites, while an abdominal ultrasound in June showed no free fluid.)? He had less than 1+ central edema, no pretibial edema, and trace ankle edema. My bedside ECHOCARDIOGRAM last night was notable for mod-severe LVH, mod global LV dysfxn with estimated EF 30%, top-normal or mildly enlarged RV, 2+ MR, 3+ TR by color flow, IVC 1.7cm with no inspiratory collapse, RVSP estimate 45mm. We had him on dobutamine 5ug overnite.? We discontinued his diuretics.? He put out 700 cc of urine last night. On exam today, he looks perhaps slightly more energetic than yesterday.? Says he feels slightly better.? Heart rate is about 80, atrial fibrillation.? Blood pressure is 97/43. ?Reading from the CardioMEMS device is 15mm this morning.? He?s breathing easy, w SpO2 98-100% on room air.? Remains afebrile. ?Definitely has less plump jugular venous distension, and it?s only up to about 2 cm below the angle of the mandible, sitting up at 30-40 degrees.? Chest is clear to auscultation, with a normal expiratory phase.? Heart rate and rhythm are irregular, with normal-sounding S1 and S2.? Possibly a very soft systolic murmur.? No gallops.? Abdomen strikingly rotund, same as yesterday, suggestive of ascites, although I cannot discern a fluid wave.? 1+ central edema, no pretibial edema, and trace ankle edema. LABORATORY DATA:? Below.? Notably, BUN/creatinine this morning about the same as yest.? BNP up to 1940.? A venous blood gas done to check his pCO2 showed 7.62/33/+13.? An ABG on room air done to confirm the vbg findings showed 7.59/33/89/+10. IMPRESSION: 1. Mild-moderate systolic heart failure, with severe diastolic heart failure.? Continuing the dobutamine at 5ug. 2. Right heart failure.? Regardless of the echo, there is no question that clinically the patient has right heart failure, given his edema, jugular venous distension, and the primacy of fatigue in his symptoms.? And/or the patient?s severe diastolic fxn may cause a ?mimic? of right heart failure.? Certainly it?s more classic for patients with severe right heart failure to walk that ?knife edge? of too much diuresis vs too little diuresis.? But in such cases, the RV is usually much bigger. 3. Acute on chronic kidney disease.? Question is, is this worsening intrinsic renal disease (from his DM and HTN), or is worsening heart disease making his renal fxn worse (ie. cardiorenal), or is something else going on.? Discussed at length with both Dr. Kulkarni and Dr. Dudley.? Given the JVD and the echo findings, we will not give fluids, but we will also hold the diuretics. 4. Cardiorenal syndrome.? More typical of right heart failure, FWIW. 5. Afib.? On amidarone and Eliquis.? We?ll continue the Eliquis at 5 mg bid, per Dr. Dudley. 6. DM.? On Lantus and SS insulin. 7. Severe metabolic alkalosis.? Unclear etiology.? On the advice of renal, I?ve started him on Diamox.? We?ll also give him KCL 40 mEq. 8. Looks to me to have at least mild protein calorie malnutrition.? Albumin is 3.3. Prognosis is guarded.? If deteriorates or fails to improve, will plan transfer to [facility] heart failure service. Time:? [id number]. Critical Care Time (minutes): 0 Physical Exam Vital Signs: Vital Signs: Last Vital Signs Temp 97.5 F 10/05/21 11:56 Pulse 80 10/05/21 14:00 Resp 18 10/05/21 14:00 BP 87/51 L 10/05/21 14:00 Pulse Ox 98 10/05/21 14:00 Body Mass Index 30.4 Objective Data Labs CBC & Chem 7: 10/04/21 06:01 10/05/21 05:10 Labs: Laboratory Results - last 24 hr 10/04/21 10/04/21 10/05/21 15:59 20:06 05:10 O2 Saturation ABG pH at Pt Temp ABG pH (Temp Correct) ABG pCO2 at Pt Temp ABG pCO2 (Temp Corrct ABG pO2 at Pt Temp ABG pO2 (Temp Correct ABG HCO3 ABG Base Excess (Actual) VBG pH VBG pCO2 VBG pO2 VBG HCO3 VBG O2 Saturation VBG Base Excess Sodium 134 L Potassium 3.5 Chloride 88 L Carbon Dioxide 28 Anion Gap 22 H BUN 120 H* Creatinine 3.39 H Estim Creat Clear Calc 15.6 Estimated GFR 18 POC Glucose 229 H 262 H Random Glucose 227 H Lactic Acid Calcium 8.9 Phosphorus 4.4 Magnesium 2.4 Total Bilirubin 1.5 H AST 26 ALT 26 Alkaline Phosphatase 117 D B-Natriuretic Peptide Total Protein 6.2 L Albumin 3.3 L 10/05/21 10/05/21 10/05/21 05:10 05:10 05:15 O2 Saturation ABG pH at Pt Temp ABG pH (Temp Correct) ABG pCO2 at Pt Temp ABG pCO2 (Temp Corrct ABG pO2 at Pt Temp ABG pO2 (Temp Correct ABG HCO3 ABG Base Excess (Actual) VBG pH 7.61 H* VBG pCO2 35 VBG pO2 61 VBG HCO3 35 H VBG O2 Saturation 89.0 VBG Base Excess 13.7 Sodium Potassium Chloride Carbon Dioxide Anion Gap BUN Creatinine Estim Creat Clear Calc Estimated GFR POC Glucose Random Glucose Lactic Acid 1.1 Calcium Phosphorus Magnesium Total Bilirubin AST ALT Alkaline Phosphatase B-Natriuretic Peptide 1940 H Total Protein Albumin 10/05/21 10/05/21 10/05/21 05:19 07:12 11:11 O2 Saturation ABG pH at Pt Temp ABG pH (Temp Correct) ABG pCO2 at Pt Temp ABG pCO2 (Temp Corrct ABG pO2 at Pt Temp ABG pO2 (Temp Correct ABG HCO3 ABG Base Excess (Actual) VBG pH 7.62 H* VBG pCO2 33 VBG pO2 66 VBG HCO3 34 H VBG O2 Saturation 93.0 VBG Base Excess 13.1 Sodium Potassium Chloride Carbon Dioxide Anion Gap BUN Creatinine Estim Creat Clear Calc Estimated GFR POC Glucose 205 H 235 H Random Glucose Lactic Acid Calcium Phosphorus Magnesium Total Bilirubin AST ALT Alkaline Phosphatase B-Natriuretic Peptide Total Protein Albumin 10/05/21 12:38 O2 Saturation 96.0 ABG pH at Pt Temp 7.59 H ABG pH (Temp Correct) 7.60 H* ABG pCO2 at Pt Temp 33 ABG pCO2 (Temp Corrct 32 ABG pO2 at Pt Temp 89 ABG pO2 (Temp Correct 86 ABG HCO3 32 H ABG Base Excess (Actual) 10.2 VBG pH VBG pCO2 VBG pO2 VBG HCO3 VBG O2 Saturation VBG Base Excess Sodium Potassium Chloride Carbon Dioxide Anion Gap BUN Creatinine Estim Creat Clear Calc Estimated GFR POC Glucose Random Glucose Lactic Acid Calcium Phosphorus Magnesium Total Bilirubin AST ALT Alkaline Phosphatase B-Natriuretic Peptide Total Protein Albumin Quality Stroke Does the patient have a stroke diagnosis?: No VTE Prior VTE?: No VTE Risk Level:: Medical - moderate - high VTE Device Contraindication: Treatment Not Indicated VTE Drug Contraindication: N/A - Med Ordered
[2021-10-05] MEDS: Potassium Chloride Packet 20 MEQ PACKET 40 MEQ PO (15:00)
[2021-10-05 15:49] LABS: Glucose, Whole Blood 269 mg/dL (60-115)
[2021-10-05 18:45] LABS: Chloride Urine Random < 20.0 mmol/L
[2021-10-05 20:42] LABS: Glucose, Whole Blood 227 mg/dL (60-115)
[2021-10-05] MEDS: Docusate Sodium 100 MG CAPSULE PO (21:11)
[2021-10-05] MEDS: Atorvastatin Calcium 40 MG TABLET PO (21:11)
[2021-10-05] MEDS: Melatonin 3 MG TABLET 6 MG PO (21:11)
[2021-10-05] MEDS: Sennosides 8.6 MG TABLET 17.2 MG PO (21:11)
[2021-10-06] VITALS (15 sets, daily range): BP systolic 86–142; BP diastolic 45–91; PULSE 70–116; RESP 12–20; TEMP 36.4; O2SAT 92–100; BMI 31.1; BMI 28.3
[2021-10-06 05:24] LABS: VBG HCO3 32 mmol/L (22-26); VBG pCO2 36 mmHg; VBG pH 7.55 (7.32-7.43); VBG pO2 59 mmHg
[2021-10-06] MEDS: Omeprazole 20 MG CAPSULE.DR PO (05:37)
[2021-10-06 06:08] LABS: B Type Natriuretic Peptide 1629 pg/mL (<100)
[2021-10-06 06:25] LABS: Anion Gap 17 (12-20); Blood Urea Nitrogen 123 mg/dL (9-16); Carbon Dioxide 31 mmol/L (22-29); Chloride 89 mmol/L (96-108); Creatinine Clr Calc Pharmacy 16.6; Estimated Glomerular Filt Rate 19; Glucose Random 160 mg/dL (60-115); Magnesium 2.4 mg/dL (1.6-2.6); Phosphorus 4.8 mg/dL (2.7-4.5); Potassium 3.5 mmol/L (3.3-5.1); Sodium 133 mmol/L (135-145)
[2021-10-06 06:25] LABS: Venous Blood Gas Refer to POC result
[2021-10-06 07:32] LABS: Glucose, Whole Blood 163 mg/dL (60-115)
[2021-10-06] MEDS: 0.9 % Sodium Chloride Flush 3 ML SYRINGE IVFLUSH ×2 (07:34→13:46)
[2021-10-06] MEDS: Insulin Lispro 100 UNIT/ML 3 ML VIAL SUBCUT ×3 (07:34→16:25)
[2021-10-06] MEDS: Docusate Sodium 100 MG CAPSULE PO (08:07)
[2021-10-06] MEDS: Apixaban 5 MG TABLET PO (08:08)
[2021-10-06] MEDS: Pregabalin 50 MG CAPSULE PO (08:08)
[2021-10-06] MEDS: Bicalutamide 50 MG TABLET PO (08:08)
--- NOTE | 2021-10-06 08:24 | P.PNIM_ITS ---
Subjective Subjective Date of Service: 10/06/21 Interval History: Seen in f/u for exacerbation of heart failure and worsening renal failure. He feels fatigue, has tremors in the hands, and urine output is low, he was admitted to the ICU and was on dobutamine drip with no signficant shift in fluids sttus. Review of Systems no sob has nausea no chest pain, feels tired Physical Exam Vital Signs: Vital Signs: Last Vital Signs Temp 97.6 F 10/05/21 21:20 Pulse 93 10/06/21 08:00 Resp 16 10/06/21 08:00 BP 105/57 L 10/06/21 08:00 Pulse Ox 99 10/06/21 08:00 Body Mass Index 31.1 Objective Data Active Medications Acetaminophen (Acetaminophen 325 Mg Tablet) 650 mg PO Q6H PRN PRN Reason: Pain, Mild (Pain Scale 1-3) Last Admin: 10/05/21 00:18 Dose: 650 mg Documented by: JENNIE Acetazolamide (Acetazolamide 250 Mg Tablet) 500 mg PO BID [facility] Last Admin: 10/05/21 21:11 Dose: 500 mg Documented by: CAPRICE Amiodarone HCl (Amiodarone Hcl 200 Mg Tablet) 200 mg PO DAILY@1200 [facility] Last Admin: 10/05/21 11:15 Dose: 200 mg Documented by: MANUEL Apixaban (Apixaban 5 Mg Tablet) 5 mg PO BID [facility] Last Admin: 10/06/21 08:08 Dose: 5 mg Documented by: LISA Atorvastatin Calcium (Atorvastatin Calcium 40 Mg Tablet) 40 mg PO BEDTIME [facility] Last Admin: 10/05/21 21:11 Dose: 40 mg Documented by: CAPRICE Bicalutamide (Bicalutamide 50 Mg Tablet) 50 mg PO DAILY [facility] Last Admin: 10/06/21 08:08 Dose: 50 mg Documented by: LISA Dextrose (Dextrose 50 % 25 Gm/50 Ml Vial) 25 gm IVPUSH Q15M PRN; Protocol PRN Reason: per Hypoglycemia Standing Ord. Docusate Sodium (Docusate Sodium 100 Mg Capsule) 100 mg PO BID PRN PRN Reason: Constipation Last Admin: 10/06/21 08:07 Dose: 100 mg Documented by: LISA Glucose (Glucose Gel 15 Gm Gel..Gram.) 15 gm PO Q15M PRN; Protocol PRN Reason: per Hypoglycemia Standing Ord. Dobutamine HCl/Dextrose (Dobutrex) 1,000 mg in 250 mls @ 2.629 mls/hr IVCONT .Q24H [facility] Last Admin: 10/05/21 11:16 Dose: 5 mcg/kg/min, 5.26 mls/hr Documented by: MANUEL Insulin Glargine (Insulin Glargine,Hum.Rec.Anlog 100 Unit/Ml 10 Ml Vial) 10 unit SUBCUT DAILY [facility] Last Admin: 10/05/21 08:15 Dose: 10 unit Documented by: MANUEL Insulin Human Lispro (Insulin Lispro 100 Unit/Ml 3 Ml Vial) 0 unit SUBCUT QIDACHS [facility]; Protocol Last Admin: 10/06/21 07:34 Dose: 2 unit Documented by: LISA Melatonin (Melatonin 3 Mg Tablet) 6 mg PO BEDTIME PRN PRN Reason: Insomnia Last Admin: 10/05/21 21:11 Dose: 6 mg Documented by: CAPRICE Nitroglycerin (Nitroglycerin 0.4 Mg Tab.Subl) 0.4 mg SUBLINGUAL Q5MX3 PRN PRN Reason: Chest Pain Omeprazole (Omeprazole 20 Mg Capsule.Dr) 20 mg PO DAILY@0630 [facility] Last Admin: 10/06/21 05:37 Dose: 20 mg Documented by: CAPRICE Ondansetron HCl (Ondansetron Hcl 4 Mg/2 Ml Vial) 4 mg IVPUSH Q8H PRN PRN Reason: Nausea and Vomiting Pregabalin (Pregabalin 50 Mg Capsule) 50 mg PO DAILY [facility] Last Admin: 10/06/21 08:08 Dose: 50 mg Documented by: LISA Senna (Sennosides 8.6 Mg Tablet) 17.2 mg PO BEDTIME PRN PRN Reason: Constipation Last Admin: 10/05/21 21:11 Dose: 17.2 mg Documented by: CAPRICE Sodium Chloride (0.9 % Sodium Chloride Flush 3 Ml Syringe) 3 ml IVFLUSH QSHIFT [facility] Last Admin: 10/06/21 07:34 Dose: 3 ml Documented by: LISA Vitamin D (Cholecalciferol (Vitamin D3) 25 Mcg Tablet) 50 mcg PO DAILY@1200 [facility] Last Admin: 10/05/21 11:15 Dose: 50 mcg Documented by: MANUEL Labs CBC & Chem 7: 10/04/21 06:01 10/06/21 05:17 Labs: Laboratory Results - last 24 hr 10/05/21 10/05/21 10/05/21 11:11 12:38 14:26 O2 Saturation 96.0 ABG pH at Pt Temp 7.59 H ABG pH (Temp Correct) 7.60 H* ABG pCO2 at Pt Temp 33 ABG pCO2 (Temp Corrct 32 ABG pO2 at Pt Temp 89 ABG pO2 (Temp Correct 86 ABG HCO3 32 H ABG Base Excess (Actual) 10.2 VBG pH VBG pCO2 VBG pO2 VBG HCO3 VBG O2 Saturation VBG Base Excess Anion Gap Estim Creat Clear Calc Estimated GFR POC Glucose 235 H Random Glucose Calcium Phosphorus Magnesium B-Natriuretic Peptide Ur Random Chloride < 20.0 10/05/21 10/05/21 10/06/21 15:45 20:38 05:17 O2 Saturation ABG pH at Pt Temp ABG pH (Temp Correct) ABG pCO2 at Pt Temp ABG pCO2 (Temp Corrct ABG pO2 at Pt Temp ABG pO2 (Temp Correct ABG HCO3 ABG Base Excess (Actual) VBG pH VBG pCO2 VBG pO2 VBG HCO3 VBG O2 Saturation VBG Base Excess Anion Gap 17 Estim Creat Clear Calc 16.6 Estimated GFR 19 POC Glucose 269 H 227 H Random Glucose 160 H Calcium 9.0 Phosphorus 4.8 H Magnesium 2.4 B-Natriuretic Peptide Ur Random Chloride 10/06/21 10/06/21 10/06/21 05:17 05:18 07:29 O2 Saturation ABG pH at Pt Temp ABG pH (Temp Correct) ABG pCO2 at Pt Temp ABG pCO2 (Temp Corrct ABG pO2 at Pt Temp ABG pO2 (Temp Correct ABG HCO3 ABG Base Excess (Actual) VBG pH 7.55 H VBG pCO2 36 VBG pO2 59 VBG HCO3 32 H VBG O2 Saturation 88.0 VBG Base Excess 10.0 Anion Gap Estim Creat Clear Calc Estimated GFR POC Glucose 163 H Random Glucose Calcium Phosphorus Magnesium B-Natriuretic Peptide 1629 H Ur Random Chloride Assessment and Plan (1) CHF (congestive heart failure): Status: Acute Assessment and Plan: ? 76-year-old male with a past medical history of hypertension, hyperlipidemia, diabetes, CAD, CHF with CardioMEMS HS system, paroxysmal AFib on Eliquis presented to the hospital with a chief complaint of generalized weakness/fatigue.? Noted to be in acute CHF exacerbation/MORTEZA on CKD.? Admitted for further management and transfered to the ICU for dobutamine drip 1. Mild-moderate systolic heart failure, with severe diastolic heart failure.? presently on dobutamine at 5ug with no signficant clinical change and don't see the benefit of continuing at this time. Will discuss with renal and cardio 2 Acute on chroni exacerbation of right heart failure.? Regardless of the echo, there is no question that clinically the patient has right heart failure, given his edema, JVD, and the primacy of fatigue in his symptoms.? And/or the patient?s severe diastolic fxn may cause a ?mimic? of right heart failure.? His overall fluid balance is negative 700 cc since admission. Diuretics have been on hold ?3. Acute on chronic kidney disease.? Question is, is this worsening intrinsic r enal disease (from his DM and HTN), or is worsening heart disease making his renal fxn worse (ie. cardiorenal), or is something else going on.? I am of the opinion that this patient's worsening renal failure is leading to uremia with symptos of nausea and asterixis..Discuss plan going forward with Nephrology ? 4. Cardiorenal syndrome.? More typical of right heart failure, ?5. Afib.? On amidarone and Eliquis.? We?ll continue the Eliquis at 5 mg bid, p. ? 6. DM.? On Lantus and SS insulin. ? 7. Metabolic alkalosis d/t renal failure? Unclear etiology.? On the advice of renal, he is on Diamox.? ?8. Looks to me to have at least mild protein calorie malnutrition.? Albumin is 3.3. Prognosis is guarded.? If deteriorates or fails to improve, will plan transfer to [facility] heart failure service. Time:? . Quality Stroke Does the patient have a stroke diagnosis?: No VTE Prior VTE?: No VTE Risk Level:: Medical - moderate - high VTE Device Contraindication: Treatment Not Indicated VTE Drug Contraindication: N/A - Med Ordered
[2021-10-06] MEDS: Insulin Glargine,Hum.rec.anlog 100 UNIT/ML 10 ML VIAL 10 UNIT SUBCUT (08:36)
[2021-10-06] MEDS: ondansetron HCL 4 MG/2 ML VIAL IVPUSH (08:36)
[2021-10-06] MEDS: acetaZOLAMIDE 250 MG TABLET 500 MG PO (08:37)
--- NOTE | 2021-10-06 10:39 | PM.PNNEP ---
Subjective Subjective Date of Service: 10/06/21 Interval history: Seen AM. Urine output mediocre. On Dobutamine. Has myoclonus and asterixis. Physical Exam Vital Signs: Vital Signs: Last Vital Signs Temp 97.6 F 10/05/21 21:20 Pulse 93 10/06/21 08:00 Resp 16 10/06/21 08:00 BP 105/57 L 10/06/21 08:00 Pulse Ox 99 10/06/21 08:00 Body Mass Index 28.3 Const: General: no acute distress Orientation/consciousness: patient oriented x3 Eyes: EOM: EOMs intact bilaterally Resp: Auscultation: diminished lung sounds Cardio: Rate: regular rate GI: Palpation (GI): Soft to palpation Neuro: Other: Myoclonus and Asterixis + General: patient oriented x3 Objective Data Labs CBC & Chem 7: 10/04/21 06:01 10/06/21 05:17 Labs: Laboratory Results - last 24 hr 10/05/21 10/05/21 10/05/21 11:11 12:38 14:26 O2 Saturation 96.0 ABG pH at Pt Temp 7.59 H ABG pH (Temp Correct) 7.60 H* ABG pCO2 at Pt Temp 33 ABG pCO2 (Temp Corrct 32 ABG pO2 at Pt Temp 89 ABG pO2 (Temp Correct 86 ABG HCO3 32 H ABG Base Excess (Actual) 10.2 VBG pH VBG pCO2 VBG pO2 VBG HCO3 VBG O2 Saturation VBG Base Excess Sodium Potassium Chloride Carbon Dioxide Anion Gap BUN Creatinine Estim Creat Clear Calc Estimated GFR POC Glucose 235 H Random Glucose Calcium Phosphorus Magnesium B-Natriuretic Peptide Ur Random Chloride < 20.0 10/05/21 10/05/21 10/06/21 15:45 20:38 05:17 O2 Saturation ABG pH at Pt Temp ABG pH (Temp Correct) ABG pCO2 at Pt Temp ABG pCO2 (Temp Corrct ABG pO2 at Pt Temp ABG pO2 (Temp Correct ABG HCO3 ABG Base Excess (Actual) VBG pH VBG pCO2 VBG pO2 VBG HCO3 VBG O2 Saturation VBG Base Excess Sodium 133 L Potassium 3.5 Chloride 89 L Carbon Dioxide 31 H Anion Gap 17 BUN 123 H* Creatinine 3.25 H Estim Creat Clear Calc 16.6 Estimated GFR 19 POC Glucose 269 H 227 H Random Glucose 160 H Calcium 9.0 Phosphorus 4.8 H Magnesium 2.4 B-Natriuretic Peptide Ur Random Chloride 10/06/21 10/06/21 10/06/21 05:17 05:18 07:29 O2 Saturation ABG pH at Pt Temp ABG pH (Temp Correct) ABG pCO2 at Pt Temp ABG pCO2 (Temp Corrct ABG pO2 at Pt Temp ABG pO2 (Temp Correct ABG HCO3 ABG Base Excess (Actual) VBG pH 7.55 H VBG pCO2 36 VBG pO2 59 VBG HCO3 32 H VBG O2 Saturation 88.0 VBG Base Excess 10.0 Sodium Potassium Chloride Carbon Dioxide Anion Gap BUN Creatinine Estim Creat Clear Calc Estimated GFR POC Glucose 163 H Random Glucose Calcium Phosphorus Magnesium B-Natriuretic Peptide 1629 H Ur Random Chloride Procedures Date of Service Date of Service: 10/06/21 Assessment & Plan Assessment and plan (1) Acute kidney injury superimposed on CKD: Status: Acute Assessment and Plan: MORTEZA with uremia; No good urine output with diuretics and Dobutamine Shall dialyze him tomorrow( Temp HD line ordered for tomorrow AM) Could get KCl 40 MEq bid X 1 day and could D/C Diamox Shall closely follow up Time Spent With Patient Time: Total time spent is greater than 50% in coordination of care (as documented) at patient's floor/unit and/or counseling patient: Progress Note: Quality Stroke Does the patient have a stroke diagnosis?: No
[2021-10-06 11:16] LABS: Glucose, Whole Blood 276 mg/dL (60-115)
[2021-10-06] MEDS: Cholecalciferol (Vitamin D3) 25 MCG TABLET 50 MCG PO (12:00)
--- NOTE | 2021-10-06 12:18 | MHC.CM.PN ---
Pt continues in ICU as IMC overflow: followed by nephrology and cardiology: if no improvement in 1-2 days, is suggesting tx to [facility] for HF treatment. Pt had been at home with services prior to admission. CM to follow for finalization of d/c plans.
[2021-10-06] MEDS: Amiodarone HCL 200 MG TABLET PO (12:26)
[2021-10-06] MEDS: Albumin Human 25 % 100 ML IV ×3 (12:27→19:30)
--- NOTE | 2021-10-06 12:41 | PC.NURSE ---
HOSPITALIST NOTIFIED OF SBP 87/61. HOSPITALIST CALLED AND SPOKE WITH [employer] APPRENTICE. SERVICES CHANGED TO ICU. ALBUMIN IV X 1 ADMINISTERED NOW. CONTINUE WITH DOBUTAMINE GTT ORDERED. VERIFIED AMIODARONE PO DOSE WITH MD PRIOR TO ADMINISTERING. WILL CONTINUE TO MONITOR.
--- NOTE | 2021-10-06 13:17 | PM.PNCARD ---
Subjective Subjective Date of Service: 10/06/21 <GIOVANA Macias - Last Filed: 10/06/21 13:43> 10/06/21 <Dax Novoa MD - Last Filed: 10/06/21 16:56> Principal diagnosis: Diastolic HF, MORTEZA/ CKD, PAF <GIOVANA Macias - Last Filed: 10/06/21 13:43> Interval history: Cardiology follow up for the above. Seen at 1100. Today he is observed resting in bed, HOB 30 degrees, breathing comfortably. He reports feeling sob when HOB layed flat. No cough at this time. Denies having any pains. No heart palpitation. No dizziness. Leg edema is less than admit. Has IV Dobutamine infusing at 5mcg/ kg/min. <GIOVANA Macias - Last Filed: 10/06/21 13:43> Review of Systems Review of Systems as above <GIOVANA Macisa - Last Filed: 10/06/21 13:43> Yes all other systems are reviewed and are negative <GIOVANA Macias - Last Filed: 10/06/21 13:43> Physical Exam Vital Signs: Last Vital Signs Temp 97.5 F 10/06/21 11:44 Pulse 88 10/06/21 13:00 Resp 18 10/06/21 13:00 BP 101/59 L 10/06/21 13:00 Pulse Ox 100 10/06/21 13:00 Body Mass Index 28.3 <GIOVANA Macias - Last Filed: 10/06/21 13:43> Const General: cooperative, no acute distress, alert and awake <GIOVANA Macias - Last Filed: 10/06/21 13:43> Orientation/consciousness: patient oriented x3 <GIOVANA Macias - Last Filed: 10/06/21 13:43> Neck Neck: Yes JVD (to below jaw) <GIOVANA Macias - Last Filed: 10/06/21 13:43> Resp Effort & Inspection: normal respiratory effort, able to speak in complete sentences and not labored <GIOVANA Macias - Last Filed: 10/06/21 13:43> Auscultation: clear to auscultation bilaterally, crackles (bases), no rhonchi and no wheezes <[facility] Chary [facility] - Last Filed: 10/06/21 13:43> Cardio Jugular venous distension: JVD present <[facility] Chary [facility] - Last Filed: 10/06/21 13:43> Palpation: normal PMI <[facility] - Last Filed: 10/06/21 13:43> Rate: regular rate [facility] - Last Filed: 10/06/21 13:43> Rhythm: abnormal rhythm [facility] - Last Filed: 10/06/21 13:43> Heart sounds: S1 normal heart sound present and S2 normal heart sound present [facility] - Last Filed: 10/06/21 13:43> Peripheral pulses: Peripheral pulses 2+ throughout [facility] - Last Filed: 10/06/21 13:43> GI Other: rounded, nontender [facility] - Last Filed: 10/06/21 13:43> Neuro General: patient oriented x3 <[facility] Chary [facility] - Last Filed: 10/06/21 13:43> Extrem Other: 1-2+ pitting lower legs [facility] - Last Filed: 10/06/21 13:43> Objective Labs and Meds Result diagrams: : 10/04/21 06:01 10/06/21 05:17 <[facility] - Last Filed: 10/06/21 13:43> Lab results: Laboratory Results - last 24 hr 10/05/21 10/05/21 10/05/21 14:26 15:45 20:38 VBG pH VBG pCO2 VBG pO2 VBG HCO3 VBG O2 Saturation VBG Base Excess Sodium Potassium Chloride Carbon Dioxide Anion Gap BUN Creatinine Estim Creat Clear Calc Estimated GFR POC Glucose 269 H 227 H Random Glucose Calcium Phosphorus Magnesium B-Natriuretic Peptide Ur Random Chloride < 20.0 10/06/21 10/06/21 10/06/21 05:17 05:17 05:18 VBG pH 7.55 H VBG pCO2 36 VBG pO2 59 VBG HCO3 32 H VBG O2 Saturation 88.0 VBG Base Excess 10.0 Sodium 133 L Potassium 3.5 Chloride 89 L Carbon Dioxide 31 H Anion Gap 17 BUN 123 H* Creatinine 3.25 H Estim Creat Clear Calc 16.6 Estimated GFR 19 POC Glucose Random Glucose 160 H Calcium 9.0 Phosphorus 4.8 H Magnesium 2.4 B-Natriuretic Peptide 1629 H Ur Random Chloride 10/06/21 10/06/21 07:29 11:13 VBG pH VBG pCO2 VBG pO2 VBG HCO3 VBG O2 Saturation VBG Base Excess Sodium Potassium Chloride Carbon Dioxide Anion Gap BUN Creatinine Estim Creat Clear Calc Estimated GFR POC Glucose 163 H 276 H Random Glucose Calcium Phosphorus Magnesium B-Natriuretic Peptide Ur Random Chloride <ANTONIO MaciasC - Last Filed: 10/06/21 13:43> Progress Note: A&P Assessment and plan (1) Acute on chronic diastolic (congestive) heart failure: Status: Acute <ANTONIO MaciasC - Last Filed: 10/06/21 13:43> Assessment and Plan: Hx of HFpEF. Last full echo 07/30/21 with EF 50-55%, grade 3 diastolic dysfunction. Recurrent admissions in last few months for decompensated HF. Readmitted on 10/03 for clinical signs of HF and lab abnormalities including Cr in 4s and BUN 120s. Initially was put on Bumex drip - then diuretic stopped 10/04 and Dobutamine was started. He remains in ICU, with Dobutamine drip at 5mcg/kg/min. On exam today he does have signs of fluid overload including prominent JVD. He has a Cardiomems device in place and PAD reading today is 16mmhg. This is mildly above his goal PAD of around 14mmhg. Cr 3.25 today. He has not been putting out good urine volume. Fluid balance is neg 500 cc since admit. Continue current tx at present. Will obtain echo today. Will discuss this complex case with Dr Novoa. We will follow. <ANTONIO MaciasC - Last Filed: 10/06/21 13:43> (2) Presence of CardioMEMS HF system: Status: Acute <ANTONIO MaciasC - Last Filed: 10/06/21 13:43> Assessment and Plan: PAD reading 16 today - monitoring code [id number] <GIOVANA Macias - Last Filed: 10/06/21 13:43> (3) PAF (paroxysmal atrial fibrillation): Status: Acute <GIOVANA Macias - Last Filed: 10/06/21 13:43> Assessment and Plan: Hx pAF which has been suppressed with Amiodarone. EKG on admit does show afib, controlled rate. Tele shows afib rate 80-90s. Denies palpitations. At this time, continue Amiodarone. Continue Eliquis for antioagulation.Ongoing tele monitoring <GIOVANA Macias - Last Filed: 10/06/21 13:43> (4) Acute kidney injury superimposed on CKD: Status: Acute <GIOVANA Macias - Last Filed: 10/06/21 13:43> Assessment and Plan: As above. Nephrology following as well <GIOVANA Macias - Last Filed: 10/06/21 13:43> Fall Risk Details Current Medications: Current Medications Acetaminophen (Acetaminophen 325 Mg Tablet) 650 mg PO Q6H PRN PRN Reason: Pain, Mild (Pain Scale 1-3) Last Admin: 10/05/21 00:18 Dose: 650 mg Documented by: Acetazolamide (Acetazolamide 250 Mg Tablet) 500 mg PO BID [facility] Last Admin: 10/06/21 08:37 Dose: 500 mg Documented by: Amiodarone HCl (Amiodarone Hcl 200 Mg Tablet) 200 mg PO DAILY@1200 [facility] Last Admin: 10/06/21 12:26 Dose: 200 mg Documented by: Apixaban (Apixaban 5 Mg Tablet) 5 mg PO BID [facility] Last Admin: 10/06/21 08:08 Dose: 5 mg Documented by: Atorvastatin Calcium (Atorvastatin Calcium 40 Mg Tablet) 40 mg PO BEDTIME [facility] Last Admin: 10/05/21 21:11 Dose: 40 mg Documented by: Bicalutamide (Bicalutamide 50 Mg Tablet) 50 mg PO DAILY [facility] Last Admin: 10/06/21 08:08 Dose: 50 mg Documented by: Dextrose (Dextrose 50 % 25 Gm/50 Ml Vial) 25 gm IVPUSH Q15M PRN; Protocol PRN Reason: per Hypoglycemia Standing Ord. Docusate Sodium (Docusate Sodium 100 Mg Capsule) 100 mg PO BID PRN PRN Reason: Constipation Last Admin: 10/06/21 08:07 Dose: 100 mg Documented by: Glucose (Glucose Gel 15 Gm Gel..Gram.) 15 gm PO Q15M PRN; Protocol PRN Reason: per Hypoglycemia Standing Ord. Heparin Sodium (Porcine) (Heparin Sodium,Porcine 5,000 Unit/Ml Vial) 5,000 unit INTRACATH ONCE ONE Stop: 10/07/21 06:30 Dobutamine HCl/Dextrose (Dobutrex) 1,000 mg in 250 mls @ 2.629 mls/hr IVCONT .Q24H [facility] Last Admin: 10/06/21 12:29 Dose: 5 mcg/kg/min, 5.26 mls/hr Documented by: Albumin Human (Kedbumin 25 %) 100 mls @ 200 mls/hr IV ONCE ONE Stop: 10/07/21 06:58 Albumin Human (Kedbumin 25 %) 100 mls @ 100 mls/hr IV ONCE ONE Stop: 10/06/21 13:18 Last Admin: 10/06/21 12:27 Dose: 100 mls/hr Documented by: Insulin Glargine (Insulin Glargine,Hum.Rec.Anlog 100 Unit/Ml 10 Ml Vial) 10 unit SUBCUT DAILY [facility] Last Admin: 10/06/21 08:36 Dose: 10 unit Documented by: Insulin Human Lispro (Insulin Lispro 100 Unit/Ml 3 Ml Vial) 0 unit SUBCUT QIDACHS [facility]; Protocol Last Admin: 10/06/21 12:00 Dose: 6 unit Documented by: Mannitol (Mannitol 12.5 Gm/50 Ml Vial) 12.5 gm IV ONCE ONE Stop: 10/07/21 06:30 Melatonin (Melatonin 3 Mg Tablet) 6 mg PO BEDTIME PRN PRN Reason: Insomnia Last Admin: 10/05/21 21:11 Dose: 6 mg Documented by: Nitroglycerin (Nitroglycerin 0.4 Mg Tab.Subl) 0.4 mg SUBLINGUAL Q5MX3 PRN PRN Reason: Chest Pain Omeprazole (Omeprazole 20 Mg Capsule.Dr) 20 mg PO DAILY@0630 [facility] Last Admin: 10/06/21 05:37 Dose: 20 mg Documented by: Ondansetron HCl (Ondansetron Hcl 4 Mg/2 Ml Vial) 4 mg IVPUSH Q8H PRN PRN Reason: Nausea and Vomiting Last Admin: 10/06/21 08:36 Dose: 4 mg Documented by: Pregabalin (Pregabalin 50 Mg Capsule) 50 mg PO DAILY [facility] Last Admin: 10/06/21 08:08 Dose: 50 mg Documented by: Senna (Sennosides 8.6 Mg Tablet) 17.2 mg PO BEDTIME PRN PRN Reason: Constipation Last Admin: 10/05/21 21:11 Dose: 17.2 mg Documented by: Sodium Chloride (0.9 % Sodium Chloride Flush 3 Ml Syringe) 3 ml IVFLUSH QSHIFT [facility] Last Admin: 10/06/21 07:34 Dose: 3 ml Documented by: Vitamin D (Cholecalciferol (Vitamin D3) 25 Mcg Tablet) 50 mcg PO DAILY@1200 [facility] Last Admin: 10/06/21 12:00 Dose: 50 mcg Documented by: <GIOVANA Macias - Last Filed: 10/06/21 13:43> Time Spent With Patient Time: Total time spent is greater than 50% in coordination of care (as documented) at patient's floor/unit and/or counseling patient: <GIOVANA Macias - Last Filed: 10/06/21 13:43> Time with patient: 25 - 35 minutes <GIOVANA Macias - Last Filed: 10/06/21 13:43> Progress Note: Quality Stroke Does the patient have a stroke diagnosis?: No <GIOVANA Macias - Last Filed: 10/06/21 13:43> Procedures Date of Service Date of Service: 10/06/21 <GIOVANA Macias - Last Filed: 10/06/21 13:43>
--- NOTE | 2021-10-06 14:00 | CA_ITS ---
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 There is moderately increased left ventricular wall thickness. The left ventricular systolic function is moderately decreased. - Mildly increased right ventricular cavity size. There is mildly decreased right ventricular systolic function. - The left atrium is severely dilated. The right atrium is mildly dilated. - There is moderate mitral valve regurgitation. - There is mild to moderate tricuspid valve regurgitation. Moderately elevated right atrial pressure. Mild pulmonary hypertension is present. Findings Left Ventricle Normal left ventricular cavity size. There is moderately increased left ventricular wall thickness. The left ventricular systolic function is moderately decreased. The visually estimated ejection fraction is between 30 35%. There is moderate global hypokinesis. Diastolic function is indeterminate on the basis of available data. Right Ventricle Mildly increased right ventricular cavity size. There is mildly decreased right ventricular systolic function. Atria The left atrium is severely dilated. The right atrium is mildly dilated. Aortic Valve There is a normal trileaflet aortic valve. There is no aortic valve stenosis. There is no aortic valve regurgitation. Mitral Valve The mitral valve appears normal. There is moderate mitral valve regurgitation. There is no mitral valve stenosis. Pulmonic Valve Normal pulmonic valve structure and function. There is trace pulmonic valve regurgitation. Tricuspid Valve There is mild to moderate tricuspid valve regurgitation. Moderately elevated right atrial pressure. Mild pulmonary hypertension is present. Great Vessels All visible segments of the aorta are normal in size. The visualized portions of the pulmonary artery and branches are normal. Venous The inferior vena cava is dilated and collapses less than 50% with inspiration. Pericardium/Pleural There is no evidence of pericardial effusion. Prior Study Comparison Changes noted compared to prior study dated: 07/30/2021. EF 30-35%, mildly reduced RV function, moderate MR. Measurements 2D Linear Measurements IVSd: 1.32 0.6-0.9/0.6-1.0 cm LVIDd: 4.91 3.9-5.3/4.2-5.9 cm LVIDd Index: 2.81 2.4-3.2/2.2-3.1 cm/m2 LVIDs: 3.93 2.0-3.6 cm LVPWd: 1.37 0.7-1.1 cm Ao Root: 2.90 2.1-3.5 cm LA Diam: 4.20 2.7-3.8/3.0-4.0 cm LAIDs Index: 2.40 1.5-2.3 cm/m2 LV Mass: 333.43 67-162/88-224 g LV Mass Index: 190.53 43-95/49-115 g/m2 LVOT Diam: 1.90 3.0+(-)1.3 cm Mitral Valve E'Lateral: 4.68 E'Medial: 4.46 Aortic Valve AoV Pk Marcell: 1.26 AoV Mn Marcell: 0.93 AoV VTI: 0.19 AoV Pk Grad: 6.00 Aov Mn Grad: 4.00 OWEN Cont.VTI: 1.94 LVOT LVOT Pk Marcell: 0.85 LVOT Mn Marcell: 0.59 LVOT VTI: 0.13 LVOT Pk Grad: 3.00 LVOT Mn Grad: 2.00 LVOT Diam: 1.90 LVOT Area: 2.84 Diastolic Function E'Medial: 4.46 E' Laterial: 4.68 Right Ventricle TAPSE (mm): 13.40 TVS' Marcell: 8.70 Tricuspid Valve TR Pk Marcell: 2.61 TR Pk Grad: 27.00 RVSP: 43.00 Great Vessels Aorta Ao Root-2D: 2.90 2.0-3.7 cm Ao Asc: 3.10 2.1-3.4 cm Updated in Other Vendor System with Status of Final Dax Novoa MD electronically signed on 10/06/2021 7:47:58 PM with status of Final
--- NOTE | 2021-10-06 14:25 | PM.CCN ---
Critical Care Event Note Summary Date of Service: 10/06/21 Code activated: No Narrative: 76-year-old gentleman with underlying advanced diastolic congestive heart failure and chronic kidney disease admitted with exacerbation of underlying congestive heart failure, now requiring dobutamine support. Patient has been transition to general medical baron [id number] on a fixed dose dobutamine, now he requires dobutamine adjustment and has been transferred back to intensive care unit. Cardiology evaluation for advanced heart failure transfer is pending. At this time will continue with dobutamine support. Will hold diuretic. May require right/left heart catheterization. Critical Care Time (minutes): 0
[2021-10-06 16:26] LABS: Glucose, Whole Blood 186 mg/dL (60-115)
--- NOTE | 2021-10-06 17:01 | P.DS_ITS ---
DS: Providers Provider Date of Service: 10/06/21 Date of admission: 10/03/21 20:48 Date of discharge: 10/06/21 Primary care physician: Miriam Gray MD Consults: 10/03/21 20:41 Consult to Cardiology Stat Consulting Provider: Jas Dudley Reason for consultation: heart faliure, increased BUN/Createnine Has provider been notified: Yes 10/04/21 01:34 Consult to Nephrology Routine Consulting Provider: Breezy Orr Reason for consultation: MORTEZA on CKD; elevated BUN DS: Transfer Hospital Acceptance Reason for Transfer: Advanced heart failure evaluation Name of Facility: [facility] Accepting Provider: Dr. Chhaya Carrera DS: Diagnosis Discharge Diagnosis (1) Acute on chronic diastolic (congestive) heart failure: Status: Acute (2) Presence of CardioMEMS HF system: Status: Acute (3) PAF (paroxysmal atrial fibrillation): Status: Acute (4) Acute kidney injury superimposed on CKD: Status: Acute (5) Acute systolic heart failure: Status: Acute (6) Diabetes mellitus: Status: Acute (7) SRINIVASA (obstructive sleep apnea): Status: Acute (8) CAD (coronary artery disease): Status: Acute (9) 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: Status: Acute DS: Summary Hospital Course Hospital Course: 76-year-old gentleman with underlying hypertension, hyperlipidemia, diabetes mellitus, CAD, grade 3 diastolic congestive heart failure on CardioMEMS HS system, AFib on anticoagulation admitted on 10/03/2021 with dyspnea, orthopnea, lower extremity edema, worsening renal failure secondary to exacerbation of congestive heart failure. Patient was started on IV Bumex with suboptimal response. He required initiation of dobutamine support and transfer to intensive care unit on 10/04/2021. His follow-up 2D echocardiogram demonstrated worsening systolic function with EF of approximately 30% and he also was noted to be in AFib. He has been evaluated by Nephrology and Cardiology services and recommendation was made for left/right heart catheterization. Transferred to [facility] advanced heart failure service has been requested and granted. Accepting physician Dr. Chhaya Carrera. Time Spent with Patient Time attestation: Total time spent providing and/or coordinating discharge services: Discharge coordination time: Greater than 30 minutes Quality: Stroke Does the patient have a stroke diagnosis?: No Physical Exam Vital Signs: Vital Signs: Last Vital Signs Temp 97.6 F 10/06/21 16:00 Pulse 116 H 10/06/21 16:00 Resp 14 10/06/21 16:00 BP 142/91 H 10/06/21 16:00 Pulse Ox 92 10/06/21 16:00 Body Mass Index 28.3 Const: General: no acute distress, alert and awake Eyes: Sclerae: sclerae normal EOM: EOMs intact bilaterally Neck: Neck: Yes no lymphadenopathy, Yes trachea midline and Yes supple Resp: Effort & Inspection: normal respiratory effort and no respiratory distress Auscultation: crackles (Bibasilar) Cardio: Rate: regular rate Rhythm: abnormal rhythm irregularly irregular Heart sounds: no gallops, no murmurs and no rubs GI: Palpation (GI): Soft to palpation and Other GI palpation findings present ( Nontender) Auscultation: normal bowel sounds Extrem: General: No clubbing, No cyanosis and Yes pedal edema (Trace bilateral) DS: Data Data Completed and Pending Completed studies during hospitalization [Text1]: Procedures Rastafarian of Cardiac Rhythm, Single (05/01/21) Labs on day of discharge: Laboratory Results - last 24 hr 10/05/21 10/05/21 10/06/21 14:26 20:38 05:17 VBG pH VBG pCO2 VBG pO2 VBG HCO3 VBG O2 Saturation VBG Base Excess Sodium 133 L Potassium 3.5 Chloride 89 L Carbon Dioxide 31 H Anion Gap 17 BUN 123 H* Creatinine 3.25 H Estim Creat Clear Calc 16.6 Estimated GFR 19 POC Glucose 227 H Random Glucose 160 H Calcium 9.0 Phosphorus 4.8 H Magnesium 2.4 B-Natriuretic Peptide TSH 0.90 Ur Random Chloride < 20.0 10/06/21 10/06/21 10/06/21 05:17 05:18 07:29 VBG pH 7.55 H VBG pCO2 36 VBG pO2 59 VBG HCO3 32 H VBG O2 Saturation 88.0 VBG Base Excess 10.0 Sodium Potassium Chloride Carbon Dioxide Anion Gap BUN Creatinine Estim Creat Clear Calc Estimated GFR POC Glucose 163 H Random Glucose Calcium Phosphorus Magnesium B-Natriuretic Peptide 1629 H TSH Ur Random Chloride 10/06/21 10/06/21 11:13 16:22 VBG pH VBG pCO2 VBG pO2 VBG HCO3 VBG O2 Saturation VBG Base Excess Sodium Potassium Chloride Carbon Dioxide Anion Gap BUN Creatinine Estim Creat Clear Calc Estimated GFR POC Glucose 276 H 186 H Random Glucose Calcium Phosphorus Magnesium B-Natriuretic Peptide TSH Ur Random Chloride Discharge Plan Discharge Anticipated Discharge Date/Time: 10/06/21 17:09 Patient Disposition: Xfer Acute [facility] Discharge Diagnosis: Congestive heart failure Referrals: Miriam Gray MD [Primary Care Provider] - 1 Week Discharge Medications: Continued atorvastatin 40 mg tablet 40 mg PO BEDTIME RF: 0 amiodarone 200 mg Tablet 200 mg PO DAILY@1200 RF: 0 omeprazole 20 mg Capsule,Delayed Release(Dr/Ec) 20 mg PO DAILY RF: 0 cholecalciferol (vitamin D3) [Vitamin D3] 50 mcg (2,000 unit) Capsule 50 mcg PO DAILY@1200 RF: 0 Trulicity 1.5 mg/0.5 mL pen injector 1.5 mg subcut WE RF: 0 bicalutamide 50 mg Tablet 50 mg PO DAILY Qty: 30 RF: 0 melatonin 3 mg tablet 1 tab PO BEDTIME PRN (Reason: insomnia) RF: 0 potassium chloride 20 mEq tablet,ER particles/crystals 2 tab PO DAILY@1200 RF: 0 Toujeo SoloStar U-300 Insulin 300 unit/mL (1.5 mL) insulin pen 15 unit subcut BEDTIME Qty: 0 RF: 0 insulin lispro [Humalog KwikPen Insulin] 100 unit/mL insulin pen 8 unit subcut TID Qty: 0 RF: 0 pregabalin 50 mg capsule 50 mg PO DAILY Qty: 30 RF: 0 Discontinued Pulmicort Flexhaler 90 mcg/actuation aerosol powdr breath activated 2 puff inhalation BID RF: 0 hydralazine 25 mg tablet 1 tab PO TID RF: 0 docusate sodium 100 mg capsule 1 cap PO BID PRN (Reason: Constipation) RF: 0 bumetanide 1 mg tablet 3 mg PO BID Qty: 180 RF: 0 Eliquis 5 mg tablet 1 tab PO BID RF: 0 No Action (DME) pen needle, diabetic [UltiCare Pen Needle] 31 gauge x 5/16 needle subcut 5XD Qty: 200 RF: 11 (DME) lancets [TRUEplus Lancets] 33 gauge misc MISCELLANEOUS QID RF: 0 (DME) blood sugar diagnostic Strip See Rx Instructions ea Not Applicable QID Qty: 10 RF: 0 Discharge Orders: Discharge Order (Routine); Ordered 10/06/21 Ordered By: Rajan Goldman Activity on Discharge: As tolerated Stand Alone Forms: Patient Portal Discharge page Care Plan Goals: Compliance with the plan of care Health Concerns: Advanced heart failure Plan of Treatment: Evaluation for possible cardiac catheterization Assessment: 76-year-old gentleman with advanced heart failure being transferred for evaluation for cardiac catheterization on the background of heart failure exacerbation.
[2021-10-06] MEDS: Heparin Sodium,Porcine/1/2NS 25,000 UNIT/250 ML IV.SOLN 10.15 UNIT IVCONT (17:40)
[2021-10-06 17:57] LABS: INTERNATIONAL NORM RATIO 2.3 (0.9-1.1)
[2021-10-06 17:59] LABS: PTT Heparin Drip 38.1 SEC (53-77.9)
--- NOTE | 2021-10-06 18:50 | PC.NURSE ---
Addendum entered by Ning Ochoa RN 10/06/21 21:04: OFF UNIT TO [facility] AT 2104. Original Note: DOBUTAMINE GTT TURNED OFF AT 1700 PER MD. PATIENT BEING TRANSFERRED TO [facility]. PER [facility] STARTED HEPARIN GTT [address] 1740: 14 UNITS/KG/HR = 10.15 ML/HR RN TO RN GIVEN: [phone] PATIENT AND UPDATED BY RN WITH CLINICAL ESTHETICIAN. CLOTHING BEING SENT HOME WITH PATIENTS . CPAP, CARIDOMEMS HF SYSTEM AND CANE BEING SENT TO [facility] WITH PATIENT.
== END 2021-10-06 21:04 | disposition short-term general hospital (02) | DRG 291 ==
LOC: HO.ED 21:18 → HO.EDOVER 21:20 → HO.ICU 10-04 12:49
PROVIDERS: Anesthesiology; Internal Medicine; Internal Medicine Cardiovascular Disease; Internal Medicine Nephrology; Physician Assistant; Admitting Provider Hospitalist; Emergency Provider Internal Medicine; PCP Family Medicine; Visit Provider Internal Medicine Pulmonary Disease
DX: I13.2 Hypertensive heart and chronic kidney disease with heart failure and with stage 5 chronic kidney disease, or end stage renal disease (principal); I50.33 Acute on chronic diastolic (congestive) heart failure; N17.9 Acute kidney failure, unspecified; N18.5 Chronic kidney disease, stage 5; E87.3 Alkalosis; E44.0 Moderate protein-calorie malnutrition; Z95.811 Presence of heart assist device; E11.42 Type 2 diabetes mellitus with diabetic polyneuropathy; I25.10 Atherosclerotic heart disease of native coronary artery without angina pectoris; D63.1 Anemia in chronic kidney disease; G47.33 Obstructive sleep apnea (adult) (pediatric); I48.0 Paroxysmal atrial fibrillation; E78.5 Hyperlipidemia, unspecified; E11.22 Type 2 diabetes mellitus with diabetic chronic kidney disease; Z20.822 Contact with and (suspected) exposure to COVID-19; Z68.28 Body mass index [BMI] 28.0-28.9, adult; Z87.891 Personal history of nicotine dependence; Z79.4 Long term (current) use of insulin; Z79.01 Long term (current) use of anticoagulants; Z79.899 Other long term (current) drug therapy
CPT/HCPCS: 36415; 36600; 71045; 80048; 80053; 82436; 82803; 82947; 83605; 83735; 83880; 83930; 83935; 84100; 84300; 84443; 84484; 85025; 85610; 85730; 87635; 93005; 93306; 93975; 97162; 99285; J1250; J2405; P9047